=== PATIENT | male | born 1970 | race Caucasian/White ===

== ENCOUNTER 2023-10-02 15:17 | Outpatient (AMB) | payer BC, SELFPAY ==
[2023-10-02 15:19] VITALS: BP 118/64; PULSE 99; O2SAT 100; BMI 29.4
--- NOTE | 2023-10-02 15:19 | HO.NEPHOV_ITS ---
Vital Signs 10/02/23 15:19 Height 6 ft Weight 217 lb BMI 29.4 BP 118/64 Blood Pressure Location Rt brachial Position Sitting Pulse 99 Pulse Source Pulse Oximeter Pulse Oximetry (%) 100 Oxygen Delivery Method Room Air Intake Visit Reasons: Continuing care- CKD/ Conf Cotton Washer Required: No Accompanied by: Self / Same As Patient Allergies rivaroxaban Allergy (Unknown, Verified 10/02/23 15:25) Rash bee venom Allergy (Unknown, Uncoded 09/30/23 16:41) Anaphylaxis HPI Comments Details: 52-year-old man with a history of longstanding hypertension and CKD. He is sudden 3 episodes of GI bleed leading to severe anemia. He has undergone blood transfusion. He has had upper and lower endoscopies. No definite source has been identified. Ongoing medical problems include history of deep venous thrombosis of the left femoral vein and pulmonary embolism. He is on Eliquis. History of cervical radiculitis and chronic low back pain Remote history of nephrolithiasis baseline creatinine is around 1.3-1.5 mg/dL History of acute kidney injury in the past with a peak creatinine of 2.9. Since his blood pressure has been low valsartan has been discontinued. [facility]LY [facility], [facility] Social History (Updated 10/02/23 @ 15:24 by CHANCE Kelly) Patient Tobacco Use Status: Former Tobacco user Review of Systems Const Denies fever(s) and Denies weight loss Card Denies chest pain Resp Denies cough and Denies hemoptysis GI Denies abdominal pain, Denies diarrhea and Denies nausea Musc Denies back pain Neuro Denies focal weakness Physical Exam Vital Signs: Last Vital Signs Pulse 99 10/02/23 15:19 BP 118/64 10/02/23 15:19 Pulse Ox 100 10/02/23 15:19 Oxygen Delivery Method Room Air 10/02/23 15:19 BMI result Body Mass Index 29.4 Const General: comfortable; No acute distress Orientation/consciousness: patient oriented x3 Eyes General: appearance normal, both eyes and all related structures Visual Montez: normal visual montez by confrontation Neck Neck: Yes supple and Yes no JVD Resp Effort & Inspection: normal respiratory effort and respiratory effort not decreased Auscultation: rhonchi Cardio Palpation: no palpable S3 and no palpable S4 Heart sounds: no rubs GI Inspection: Yes normal to inspection Palpation (GI): Soft to palpation Percussion: Yes normal to percussion Auscultation: normal bowel sounds General: Yes no CVA tenderness Back/Spine/Pelvis Back: no CVA tenderness Skin General skin exam: no petechiae and no purpura Neuro General: patient oriented x3 and no focal motor deficits Extrem General: No clubbing and No edema Results Reviewed Results Reviewed: Labs pending Nephrology Results: No Data to Display Assessment & Plan Assessment & Plan (1) CKD (chronic kidney disease): Code(s): N18.9 - Chronic kidney disease, unspecified Category: Medical (2) Anemia: Code(s): D64.9 - Anemia, unspecified Category: Medical Plan . 48-year-old man with a history of longstanding history of diabetes mellitus and hypertension with proteinuria and CKD. He has CKD 3 most likely due to hypertensive diabetic kidney disease. History of acute kidney injury which has resolved. History of proteinuria and he was on valsartan. Valsartan has been placed on hold due to relatively low blood pressure. History of significant anemia due to GI bleed and is currently being worked up. History of hyperkalemia After discontinuing valsartan serum potassium should normalize. He should continue low-potassium diet. History of hypertension. Blood pressure is well controlled this time Encouraged to stay on low-sodium diet. Orders: Orders Total Protein Urine Random 1 Week D64.9 - Anemia, unspecified, N18.9 - Chronic kidney disease, unspecified Comprehensive Met. Panel 1 Week D64.9 - Anemia, unspecified, N18.9 - Chronic kidney disease, unspecified Complete Blood Count no Diff 1 Week D64.9 - Anemia, unspecified, N18.9 - Chronic kidney disease, unspecified Creatinine Urine 1 Week D64.9 - Anemia, unspecified, N18.9 - Chronic kidney disease, unspecified Coding Level of Care Code Est Pt Level 4 (22623) Diagnoses CKD (chronic kidney disease) N18.9 Anemia D64.9
== END 2023-10-02 15:44 | disposition home or self-care (01) ==
PROVIDERS: PCP Family Medicine; Visit Provider Internal Medicine Hypertension Specialist
DX: N18.9 Chronic kidney disease, unspecified (principal); D64.9 Anemia, unspecified
CPT/HCPCS: 99214

== ENCOUNTER → 2023-10-02 15:17 | Outpatient (BNVA) | payer BC, SELFPAY | PROVIDERS: PCP Family Medicine; Visit Provider Internal Medicine Hypertension Specialist ==

== ENCOUNTER 2024-01-29 13:31 | Outpatient (AMB) | payer BC, SELFPAY ==
--- NOTE | 2024-01-29 13:32 | HO.NEPHOV ---
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: No Accompanied by: Self / Same As Patient Allergies rivaroxaban Allergy (Unknown, Verified 01/29/24 13:35) Rash bee venom Allergy (Unknown, Uncoded 09/30/23 16:41) Anaphylaxis Medication List - Last Reconciled 01/29/24 by Isaiah Robert MD allopurinol 100 mg PO DAILY amitriptyline 50 mg PO BEDTIME apixaban (Eliquis) 5 mg PO BID betamethasone dipropionate 0.05% appl topical bupropion HCl SR 150 mg PO DAILY carvedilol 6.25 mg PO BID cyanocobalamin (vitamin B-12) 500 mcg PO DAILY folic acid 1 mg PO QAM insulin aspart U-100 (Novolog U-100 Insulin aspart) 1 sliding scale dose subcut USEASDIRECTD insulin detemir U-100 (Levemir FlexPen) units subcut minocycline 50 mg PO DAILY pregabalin 150 mg PO BID semaglutide (Ozempic) mg subcut HPI Comments Details: 52-year-old man with a history of longstanding hypertension and CKD. He is sudden 3 episodes of GI bleed leading to severe anemia. He has undergone blood transfusion. He has had upper and lower endoscopies. No definite source has been identified. Ongoing medical problems include history of deep venous thrombosis of the left femoral vein and pulmonary embolism. He is on Eliquis. History of cervical radiculitis and chronic low back pain Remote history of nephrolithiasis baseline creatinine is around 1.3-1.5 mg/dL History of acute kidney injury in the past with a peak creatinine of 2.9. Since his blood pressure has been low valsartan has been discontinued. 01/29/24 Still has anemia Waiting for Endoscopy Recently admitted with Pneumonia Still smokes 1/2 PPD [facility] Social History Patient Tobacco Use Status: Former Tobacco user Physical Exam Vital Signs: Last Vital Signs Pulse 106 H 01/29/24 13:33 BP 130/78 01/29/24 13:47 Pulse Ox 100 01/29/24 13:33 Oxygen Delivery Method Room Air 01/29/24 13:33 BMI result Body Mass Index 29.4 Results Reviewed Nephrology Results: No Data to Display Assessment & Plan Assessment & Plan (1) CKD (chronic kidney disease): Code(s): N18.9 - Chronic kidney disease, unspecified Category: Medical (2) Anemia: Code(s): D64.9 - Anemia, unspecified Category: Medical Plan . 48-year-old man with a history of longstanding history of diabetes mellitus and hypertension with proteinuria and CKD. He has CKD 3 most likely due to hypertensive diabetic kidney disease. History of acute kidney injury which has resolved. Repeeat labs ordered History of proteinuria and he was on valsartan. Valsartan has been placed on hold due to relatively low blood pressure. History of significant anemia due to GI bleed and is currently being worked up. History of hyperkalemia REcheck K He should continue low-potassium diet. History of hypertension. Blood pressure is well controlled this time Encouraged to stay on low-sodium diet. Orders: Orders Basic Metabolic Panel 01/29/24 N18.9 - Chronic kidney disease, unspecified, D64.9 - Anemia, unspecified Basic Metabolic Panel 3 Months N18.9 - Chronic kidney disease, unspecified, D64.9 - Anemia, unspecified Coding Level of Care Code Est Pt Level 4 (29588) Diagnoses CKD (chronic kidney disease) N18.9 Anemia D64.9
[2024-01-29 13:33] VITALS: BP 152/78; PULSE 106; O2SAT 100; BMI 29.4
[2024-01-29 13:47] VITALS: BP 130/78
== END 2024-01-29 13:52 | disposition home or self-care (01) ==
PROVIDERS: PCP Family Medicine; Visit Provider Internal Medicine Hypertension Specialist
DX: I12.9 Hypertensive chronic kidney disease with stage 1 through stage 4 chronic kidney disease, or unspecified chronic kidney disease (principal); N18.9 Chronic kidney disease, unspecified; D63.1 Anemia in chronic kidney disease
CPT/HCPCS: 99214

== ENCOUNTER → 2024-01-29 13:31 | Outpatient (BNVA) | payer BC, SELFPAY | PROVIDERS: PCP Family Medicine; Visit Provider Internal Medicine Hypertension Specialist ==

== ENCOUNTER 2024-05-13 14:12 | Outpatient (AMB) | payer BC, SELFPAY ==
--- NOTE | 2024-05-13 14:13 | HO.NEPHOV ---
Vital Signs 05/13/24 14:14 Height 6 ft Weight 218 lb BMI 29.6 BP 90/52 L Blood Pressure Location Rt brachial Position Sitting Intake Visit Reasons: CKD/3 Month Follow Up/ LVM Ada Accommodation Consultant Required: No Accompanied by: Self / Same As Patient Allergies rivaroxaban Allergy (Unknown, Verified 05/13/24 14:15) Rash bee venom Allergy (Unknown, Uncoded 09/30/23 16:41) Anaphylaxis Medication List - Last Reconciled 05/13/24 by Isaiah Robert MD allopurinol 100 mg PO DAILY amitriptyline 50 mg PO BEDTIME apixaban (Eliquis) 5 mg PO BID betamethasone dipropionate 0.05% appl topical bupropion HCl SR 150 mg PO DAILY carvedilol 6.25 mg PO BID colchicine 0.6 mg PO DAILY cyanocobalamin (vitamin B-12) 500 mcg PO DAILY dapagliflozin propanediol (Farxiga) 10 mg PO DAILY folic acid 1 mg PO QAM insulin aspart U-100 (Novolog U-100 Insulin aspart) 1 sliding scale dose subcut USEASDIRECTD insulin degludec (Tresiba FlexTouch U-100 insulin) 12 units subcut DAILY insulin detemir U-100 (Levemir FlexPen) units subcut magnesium oxide 400 mg PO TID pantoprazole mg PO pregabalin 200 mg PO BID semaglutide (Ozempic) mg subcut spironolactone 25 mg PO DAILY torsemide 20 mg PO DAILY valsartan 320 mg PO DAILY varenicline 1 mg PO BID HPI Comments Details: 52-year-old man with a history of longstanding hypertension and CKD. He is sudden 3 episodes of GI bleed leading to severe anemia. He has undergone blood transfusion. He has had upper and lower endoscopies. No definite source has been identified. Ongoing medical problems include history of deep venous thrombosis of the left femoral vein and pulmonary embolism. He is on Eliquis. History of cervical radiculitis and chronic low back pain Remote history of nephrolithiasis baseline creatinine is around 1.3-1.5 mg/dL History of acute kidney injury in the past with a peak creatinine of 2.9. Since his blood pressure has been low valsartan has been discontinued. 01/29/24 Still has anemia Waiting for Endoscopy Recently admitted with Pneumonia Still smokes 1/2 PPD 05/13/24 Did not undergo Endoscopy yet Currently on Valsartan 320 mg QD REPLACED BY [facility] Social History Patient Tobacco Use Status: Former Tobacco user Physical Exam Vital Signs: BMI result Body Mass Index 29.6 Comfortable Neck supple no JVD. Lungs entry equal no rales. Heart S1-S2 heard no gallop or rub. Abdomen soft nontender. Neuro alert awake oriented. No asterixis. Extremities no edema. Results Reviewed Nephrology Results: No Data to Display Assessment & Plan Assessment & Plan (1) CKD (chronic kidney disease): Code(s): N18.9 - Chronic kidney disease, unspecified Category: Medical (2) Anemia: Code(s): D64.9 - Anemia, unspecified Category: Medical Plan . 54-year-old man with a history of longstanding history of diabetes mellitus and hypertension with proteinuria and CKD. He has CKD 3 most likely due to hypertensive diabetic kidney disease. History of acute kidney injury which has resolved. History of proteinuria and he was on valsartan. Valsartan was placed on hold due to relatively low blood pressure. But restarted few months ago at 320 mg History of significant anemia due to GI bleed and is currently being worked up. Waitingf or Endoscopy History of hyperkalemia He should continue low-potassium diet. History of hypertension. Blood pressure is on the lower side Would decrease Valsartan by 50% to 160 mg and watch Orders: Orders Complete Blood Count no Diff Today D64.9 - Anemia, unspecified, N18.9 - Chronic kidney disease, unspecified Comprehensive Met. Panel Today D64.9 - Anemia, unspecified, N18.9 - Chronic kidney disease, unspecified Medications: New valsartan 160 mg PO DAILY 90 tabs 1RF Coding Level of Care Code Est Pt Level 4 (29367) Diagnoses CKD (chronic kidney disease) N18.9 Anemia D64.9
[2024-05-13 14:14] VITALS: BP 90/52; BMI 29.6
== END 2024-05-13 14:34 | disposition home or self-care (01) ==
PROVIDERS: PCP Family Medicine; Visit Provider Internal Medicine Hypertension Specialist
DX: N18.9 Chronic kidney disease, unspecified (principal); D64.9 Anemia, unspecified
CPT/HCPCS: 99214

== ENCOUNTER 2024-09-02 13:20 | Outpatient (AMB) | payer BC, SELFPAY ==
[2024-09-02 13:24] VITALS: BP 144/68; PULSE 99; O2SAT 100; BMI 30.8
--- NOTE | 2024-09-02 13:24 | HO.NEPHOV ---
Vital Signs 09/02/24 13:24 09/02/24 13:36 Height 6 ft Weight 227 lb BMI 30.8 BP 144/68 H 130/60 Blood Pressure Location Lt brachial Lt brachial Position Sitting Sitting Pulse 99 Pulse Source Pulse Oximeter Pulse Oximetry (%) 100 Oxygen Delivery Method Room Air Intake Visit Reasons: 4mon follow-up w/labs LVM [employer] Emergency Services Manager Required: No Accompanied by: Self / Same As Patient Allergies rivaroxaban Allergy (Unknown, Verified 09/02/24 13:26) Rash bee venom Allergy (Unknown, Uncoded 09/30/23 16:41) Anaphylaxis Medication List - Last Reconciled 09/02/24 by Isaiah Robert MD allopurinol 100 mg PO DAILY amitriptyline 50 mg PO BEDTIME apixaban (Eliquis) 5 mg PO BID betamethasone dipropionate 0.05% appl topical bupropion HCl SR 150 mg PO DAILY carvedilol 6.25 mg PO BID colchicine 0.6 mg PO DAILY cyanocobalamin (vitamin B-12) 500 mcg PO DAILY dapagliflozin propanediol (Farxiga) 10 mg PO DAILY folic acid 1 mg PO QAM insulin aspart U-100 (Novolog U-100 Insulin aspart) 1 sliding scale dose subcut USEASDIRECTD insulin degludec (Tresiba FlexTouch U-100 insulin) 12 units subcut DAILY insulin detemir U-100 (Levemir FlexPen) units subcut magnesium oxide 400 mg PO TID pantoprazole mg PO pregabalin 200 mg PO BID semaglutide (Ozempic) mg subcut spironolactone 25 mg PO DAILY torsemide 20 mg PO DAILY valsartan 320 mg PO DAILY varenicline tartrate 1 mg PO BID HPI Comments Details: 52-year-old man with a history of longstanding hypertension and CKD. He is sudden 3 episodes of GI bleed leading to severe anemia. He has undergone blood transfusion. He has had upper and lower endoscopies. No definite source has been identified. Ongoing medical problems include history of deep venous thrombosis of the left femoral vein and pulmonary embolism. He is on Eliquis. History of cervical radiculitis and chronic low back pain Remote history of nephrolithiasis baseline creatinine is around 1.3-1.5 mg/dL History of acute kidney injury in the past with a peak creatinine of 2.9. Since his blood pressure has been low valsartan has been discontinued. 01/29/24 Still has anemia Waiting for Endoscopy Recently admitted with Pneumonia Still smokes 1/2 PPD 05/13/24 Did not undergo Endoscopy yet Currently on Valsartan 320 mg QD 09/02/24 54-year-old male presenting with anemia. He reports a marked drop in hemoglobin levels from 9.1 to 7.5 g/dL over a span of a few days, which has necessitated weekly monitoring. The patient has been on iron supplements for several years, yet a recent bone marrow examination revealed an absence of iron, indicating severe depletion likely related to ongoing blood loss. This issue has been further compounded by the necessity of frequent blood transfusions, the last of which occurred approximately one week ago. The ongoing anemia has prompted multiple investigations including a planned endoscopy and a recent, [id number]-[id number]-reviewed bone marrow biopsy. [facility] Social History Patient Tobacco Use Status: Former Tobacco user Physical Exam Vital Signs: Last Vital Signs Pulse 99 09/02/24 13:24 BP 144/68 H 09/02/24 13:24 Pulse Ox 100 09/02/24 13:24 Oxygen Delivery Method Room Air 09/02/24 13:24 BMI result Body Mass Index 30.8 Comfortable Neck supple no JVD. Lungs entry equal no rales. Heart S1-S2 heard no gallop or rub. Abdomen soft nontender. Neuro alert awake oriented. No asterixis. Extremities no edema. Results Reviewed Nephrology Results: No Data to Display Assessment & Plan Assessment & Plan (1) CKD (chronic kidney disease): Code(s): N18.9 - Chronic kidney disease, unspecified Category: Medical (2) Anemia: Code(s): D64.9 - Anemia, unspecified Category: Medical Plan . 54-year-old man with a history of longstanding history of diabetes mellitus and hypertension with proteinuria and CKD. He has CKD 3 most likely due to hypertensive diabetic kidney disease. History of acute kidney injury which has resolved. History of proteinuria - on valsartan. Renal panel ordered History of significant anemia due to GI bleed and is currently being worked up. Still waiting for Endoscopy History of hyperkalemia He should continue low-potassium diet. History of hypertension. Blood pressure is better controlled At his request, will refill Novolog and Freestyle kathrine sensor Orders: Orders Basic Metabolic Panel 4 Months D64.9 - Anemia, unspecified, N18.9 - Chronic kidney disease, unspecified Complete Blood Count no Diff 4 Months D64.9 - Anemia, unspecified, N18.9 - Chronic kidney disease, unspecified Basic Metabolic Panel 4 Days N18.9 - Chronic kidney disease, unspecified Coding Level of Care Code Est Pt Level 4 (03718) Diagnoses CKD (chronic kidney disease) N18.9 Anemia D64.9
--- OUTSIDE RECORDS SUMMARY | 2024-09-02 13:31 | XMS_ITS | Encounter Summary ---
Author Organization [facility] Address [address] [place] [address] Care Team Providers Care Sack Cleaner Name Role Phone Rios Sousa MD Primary Care Provider Encounter Details Date Type Department Care Team (Latest Contact Info) Description 08/28/2024 8:44 AM EDT - 08/28/2024 11:59 PM EDT Hospital Encounter [facility] [address] [place] [address] MGUS (monoclonal gammopathy of unknown significance); Iron deficiency anemia due to chronic blood loss; Acute on chronic anemia Discharge Disposition: Home or Self Care Social History Tobacco Use Types Packs/Day Years [...] care for your loved ones. For example, child day care provider or elderly care for an older adult? [...] Safety Answer Date Record ed Physical Abuse 08/08/2024 Verbal Abuse 08/08/2024 Sex and Gender Information Value Date Recorded Sex Assigned at Male 06/03/2024 2:26 PM EST Legal Sex Male 12:56 PM EST Gender Identity Male 06/03/2024 2:26 PM EST Sexual Orientation Straight 06/03/2024 2: 26 PM EST documented as of this encounter Functional Status * Are you deaf or do you have serious difficulty hearing? Answer Date of Assessment Author No 06/26/2024 8:27 PM EST Debora Sharpe * Are you blind or do you have serious difficulty seeing, even when wearing glasses? Answer Date of Assessment Author No 06/26/2024 8:27 PM EST Debora Sharpe * Do you have serious difficulty walking or climbing stairs? Answer Date of Assessment Author No 06/26/2024 8:27 PM Debora Hedrick * Do you have serious difficulty dressing or bathing? Answer Date of Assessment Author No 06/26/2024 8:27 PM Debora Hedrick * Because of a physical, mental, or emotional condition, do you have serious difficulty doing errandsalone such as visiting the doctor? Answer Date of Assessment Author No 06/26/2024 8:27 PM NIDHI AnnemarieDebora edwards documented as of this encounter Mental Status * Because of a physical, mental, or emotional condition, do you have serious difficulty concentrating, remembering, or making decisions? (5 years old or older) Answer Entry Date Author No 06/26/2024 8:27 PM Debora Hedrick documented in this encounter Medications at Time of Discharge allopurinoL (ZYLOPRIM) 300 mg tabletIndications :Chronic gout without tophus, unspecified cause, unspecified site Take 1 tablet (300 mg total) by mouth 1 (one) time each day. 07/24/2024 amitriptyline (ELAVIL) 50 mg tablet TAKE ONE TABLET (50 MG TOTAL) BY MOUTH AT BEDTIME 30 tablet 11 04/16/2024 buPROPion SR (WELLBUTRIN SR) 150 mg 12 hr tabletIndications :Smoking TAKE ONE TABLET (150MG TOTAL) BY MOUTH ONCE DAILY DO NOT CRUSH, CHEW, OR SPIT. 30 tablet 11 04/16/2024 carvediloL (Coreg) 12.5 mg tabletIndications :Primary hypertension Take 1 tablet (12.5 mg total) by mouth 2 (two) times a day with meals. 180 each 1 03/31/2024 colchicine (COLCRYS) 0.6 mg tabletIndications :Hyperuricemia Take 1 tablet (0.6 mg total) by mouth 1 (one) time each day. 90 tablet 07/22/2024 cyanocobalamin (VITAMIN B-12) 500 mcg tabletIndications :Anemia, unspecified type Take 1 tablet (500 mcg total) by mouth 1 (one) time each day. 90 tablet 1 04/06/2024 Eliquis 5 mg tabletIndications :Iron deficiency anemia due to chronic blood loss,MGUS (monoclonal gammopathy of unknown significance) TAKE ONE TABLET BY MOUTH EVERY TWELVE HOURS 180 tablet 11 06/12/2024 EPINEPHrine (EPIPEN) 0.3 mg/0.3 mL injection INJECT 0.3 ML (0.3 MG TOTAL) INTO THE MUSCLE ONCE FOR 1 DOSE 10/30/2023 ferrous sulfate (IRON ORAL) 2 (two) times a day. Iron Combinations (IRON COMPLEX PO): Take 1 capsule by mouth daily. - Oral insulin aspart (NovoLOG U-100 Insulin aspart) 100 unit/mL injection Inject 13 Units under the skin 3 (three) times a day before meals. 07/24/2024 ketoconazole (NIZORAL) 2 % shampoo APPLY TOPICALLY TWICE DAILY APPLY TO DAMP SKIN, LATHER, LEAVE ON FOR 5 MINUTES AND RINSE 07/08/2024 magnesium oxide 400 mg magnesium capsule Take 400 mg by mouth 2 (two) times a day. 08/27/2023 pantoprazole (PROTONIX) 40 mg EC tabletIndications :Gastroesophageal reflux disease, unspecified whether esophagitis present Take 1 tablet (40 mg total) by mouth 2 (two) times a day. 90 tablet 1 06/29/2024 pregabalin (LYRICA) 150 mg capsuleIndication s:Chronic low back pain, unspecified back pain laterality, unspecified whether sciatica present Take 2 capsules (300 mg total) by mouth 2 (two) times a day. Max Daily Amount: 600 mg 120 each 08/25/2024 5 semaglutide (Ozempic) 1 mg/dose (4 mg/3 mL) injection penIndications:Ty pe 2 diabetes mellitus with hyperglycemia, with long-term current use of insulin ([facility] V24, [facility] V28) INJECT 1 MG UNDER THE SKIN EVERY 7 (SEVEN) DAYS. 3 mL 2 07/07/2024 5 torsemide (DEMADEX) 20 mg tabletIndications :Primary hypertension Take 1 tablet (20 mg total) by mouth 1 (one) time each day. 90 tablet 1 06/17/2024 Tresiba FlexTouch U-100 100 unit/mL (3 mL) injection pen Inject 12 Units under the skin at bedtime. 02/19/2024 FreeStyle Guanako 3 Sensor deviceIndications :Type 2 diabetes mellitus without complication, with long-term current use of insulin ([facility] V24, [facility] V28) 1 EA by Other route every 14 (fourteen) days. Box = Kit = EA 6 kit 2 06/15/2024 documented as of this encounter Discharge Disposition Disposition Code Departure Means Destination Home or Self Care documented in this encounter Progress Notes * Nessa Fried RN - 08/28/2024 9:00 AM EDT Timeout performed prior to bone marrow biopsy. Patient identified and able to verbalized procedure to be performed - bone marrow biopsy. Patient tolerated procedure well without incident. Performed by Seferino Leo PA-C. Biopsy dressing assessed post biopsy; scant bleeding assessed (size of a pee) after lying flat on his back with pressure applied for 60 minutes per ASHTYN Gentile's request since patient is on Eliquis. Patient encouraged to monitor the site when he arrives home, and if he notices any bleeding to call clinic. Pt was educated and given a handout on the below information: -Resume normal activity unless significant discomfort or otherwise instructed. - Maintain pressure dressing dry and intact for 24 hours. -Dressing may be removed after 24 hours and replace with a Band-Aid if needed. -May shower after 24 hours. -For the first 48 hours the site should not be submerged in water. -Ice packs to site(s) as needed for discomfort. -Acetaminophen 1-2 tabs every 6 hours as needed for discomfort Patient is aware of his next scheduled appointment and didn't require a copy prior to discharge from the clinic. Will call clinic in interim with questions/concerns. documented in this encounter Plan of Treatment Upcoming Encounters Date Type Department Care Team (Late st Contact Info) Description 09/07/2024 9:00 AM EDT Appointment [facility] [address] [place] [address] 09/08/2024 12:30 PM EDT Appointment [facility] [address] [place] [address] 09/10/2024 11:00 AM EDT Office Visit Hematology and Oncology - [place] [address] [place] [address] Dhaval Bradley MD [address] [place] [address] 09/21/2024 11:00 AM EDT Appointment [facility] [address] [place] [address] 09/22/2024 11:45 AM EDT Office Visit Family Medicine [place] [address] [facility] [address] [place] [phone] Kiya Crespo PA [address] [facility] [address] [facility] [place] [address] 09/22/2024 12:30 PM EDT Appointment [facility] [address] [place] [address] 10/05/2024 11:00 AM EDT Appointment [facility] [address] [place] [address] 10/06/2024 11:00 AM EDT Appointment [facility] [address] [place] [address] 10/19/2024 11:00 AM EDT Appointment [facility] [address] [place] [address] 10/20/2024 11:00 AM EDT Appointment [facility] [address] [place] [address] 10/26/2024 1:15 PM EDT [facility] [place] [address] [place] [address] Joann Strauss PA [address] [place], [place] [id number] 02/11/2025 11:20 AM EDT Office Visit [facility] [place] [address] [place] [address] Leonid Watson DO [address] [place] [address] documented as of this encounter Procedures Procedure Name Priority Date/Time Associated Diagnosis Comments FLOW CYTOMETRY Routine 08/28/2024 9:48 AM EDT MGUS (monoclonal gammopathy of unknown significance) Iron deficiency anemia due to chronic blood loss Acute on chronic anemia BONE MARROW EXAM Routine 08/28/2024 9:48 AM EDT MGUS (monoclonal gammopathy of unknown significance) Iron deficiency anemia due to chronic blood loss Acute on chronic anemia documented in this encounter Results * Flow cytometry (08/28/2024 9:48 AM EDT) Pathologist [facility] Flow Cytometry Interpretation Flow cytometry: The overall findings show no immunophenotypic abnormalities. Please note that myeloid disorders cannot be reliably excluded by flow cytometry. SPECIMEN: Bone marrow VIABILITY: 98.9% TOTAL CELL YIELD: 31.6x106/mL IMMUNOPHENOTYPIC FINDINGS: Lymphocytes are 4% of total. -T cells are 3.8% of total (85% of cells in lymphocyte gate) with no aberrant phenotype, CD4:CD8=0.9 -B cells are 0.2% of total (% of cells in lymphocyte gate) and are polytypic. Granulocytes are 36% of total Monocytic cells are 2% of total CD34+ Blasts are not increased (2%). Plasma cells are 0.2% with normal surface marker expression. Antibodies (28 markers): CD2, CD3, CD4, CD5, CD7, CD8, CD10, CD11b, CD13, CD14, CD15, CD16, CD19, CD20, CD33, CD34, CD38, CD45, CD56, CD64, CD117, CD123, CD138, CD200, HLA-DR, [place] Tri[place], Lambda, TCR??. 08/28/2024 4:[facility] PM [facility] Disclaimer This test was developed and its performance characteristics determined by [facility]. It has not been cleared or approved by U.S. Food and Drug Administration. The FDA does not require this test to go through premarket FDA review. This test is used for clinical purposes. It should not be regarded as investigational or for research. This laboratory is certified under Clinical Laboratory Improvement Amendments of 1988 (CLIA) as qualified to perform high complexity clinical laboratory testing. 08/28/2024 4:08 PM EDT [facility] Bone Marrow Specimen from bone marrow obtained by aspiration / Unknown Non-blood Collection / Unknown 08/28/2024 9:48 AM EDT 08/28/2024 11:46 AM EDT S[facility] BLOOD ORDERABLES Fin al Result [facility] [address] [place] [address], [place] [phone] * Bone marrow exam (08/28/2024 9:48 AM EDT) Final Diagnosis A-C. Bone Marrow, aspiration, core biopsy, and clot: Marrow with trilineage hematopoiesis and absent iron stores. See comment. Comment: This is a normo-cellular marrow with trilineage hematopoiesis and absent iron stores. Flow cytometry shows no immunophenotypic abnormalities. Mild megaloblastic changes are seen in the granulocytic precursors however no definite dysplastic features are present. In the clinical setting of persistent peripheral blood cytopenia the overall findings are not diagnostic as for the etiology. Karyotype, and a myeloid disorder NGS panel are pending, addendum to follow. CBC: Lab Results Component Value Date WBC 3.3 (L) 08/27/2024 RBC 3.09 (L) 08/27/2024 HGB 9.1 (L) 08/27/2024 HCT 28.1 (L) 08/27/2024 MCV 91.0 08/27/2024 MCHC 32.4 08/27/2024 RDW 17.0 08/27/2024 PLT 118 (L) 08/27/2024 MPV 9.5 08/27/2024 DIFF Lab Results Component Value Date LYMPHOPCT 17.5 (L) 08/27/2024 NEUTROABS 2.30 08/27/2024 LYMPHSABS 0.60 (L) 08/27/2024 MONOABS 0.20 08/27/2024 EOSABS 0.10 08/27/2024 BASOSABS 0.00 08/27/2024 Bone marrow aspirate smear (Chopra stain): Specimen quality: Very good Myeloid:Erythroid ratio: 1.18 Myeloid maturation: Within normal limits Erythroid maturation: Within normal limits Megakaryocyte number and morphology: Adequate with normal morphology Iron stain: Absent iron stores 200 cell Differential count of aspirate: % Cell type Blasts, 0% Myeloids, 52% Lymphocytes, 2% Plasma cells, 2% Erythroids. 44% Microscopic finding of bone marrow biopsy and clot (H and E, PAS): Specimen quality: Core: Inadequate biopsy consists only of periosteum and attached soft tissue and cellular marrow is not included. .Clot: Several spicules are present in the clot. Cellularity: Approximately 50% Myeloid maturation: Within normal limits Erythroid maturation: Within normal limits Megakaryocyte number and maturation: Adequate with normal morphology Plasma cells: Not increased Lymphocytes: Not increased Reticulin stain: Cannot be evaluated due to biopsy being an inadequate specimen PAS stain on clot and core: Highlights megakaryocytes Additional Testing (Addendum to follow): Conventional karyotype All special stains were performed with appropriate controls. 08/31/2024 2:57 PM EDT [facility] Gross Description A. Bone Marrow Aspirate, : Received are 5 total slides (3 Giemsa 1 iron 1 unstained slide) prepared by flow cytometry. 08/28/24 B. Bone Marrow Biopsy, : Received in formalin labeled bone marrow biopsy consists of a pale mcmillan-pink bone core with minimal adherent blood clot measuring 0.5 cm in length, which is submitted en toto in one cassette labeled B1, after bench decalcification. 08/28/24 C. Bone Marrow Clot, : Received in a purple lavender top tube labeled clot consists of approximately 2 cc of bright red blood and blood clot intermixed with flecks of pink debris which is filtered and entirely submitted in 1 cassette labeled C1, multiple pieces. HP 08/28/24 08/31/2024 2:57 PM EDT [facility] Disclaimer The technical components of [place] [address] CLIA # [id number] The interpretation of this case included the use of immunohistochemistr y, special stains, and/or analyte specific reagent(s). Unless otherwise specified, controls were performed and stained appropriately. These tests have not been cleared or approved by the U.S. Food and Drug Administration. The FDA has determined that such clearance or approval is not necessary. These tests are used for clinical purposes and should not be regarded as investigational or for research. This laboratory is certified to perform high complexity testing under the Clinical Laboratory Improvement Amendments of 1988. 08/31/2024 2:57 PM EDT [facility] Bone Marrow Bone marrow clot specimen / Unknown Non-blood Collection / Unknown 08/28/2024 9:48 AM EDT 08/28/2024 11:12 AM EDT Bone marrow specimen (specimen) Specimen from bone marrow obtained by biopsy / Unknown 08/28/2024 9:48 AM EDT 08/28/2024 11:12 AM EDT Bone marrow specimen (specimen) Bone marrow clot specimen / Unknown 08/28/2024 9:48 AM EDT 08/28/2024 11:12 AM EDT [facility] PATHOLOGY ORDERABLES Final Result [facility] [address] [place] [address], [place] [phone] documented in this encounter Visit Diagnoses Diagnosis MGUS (monoclonal gammopathy of unknown significance) Monoclonal paraproteinemia Iron deficiency anemia due to chronic blood loss Iron deficiency anemia secondary to blood loss (chronic) Acute on chronic anemia documented in this encounter Additional Health Concerns Assessment Noted Time PHQ-9 Depression Total Score: 0 08/14/19 25 3:29 PM EDT documented as of this encounter Care Teams Sack Cleaner Relationship Specialty Start Date End Date Rios Sousa MD [address] [place] [address] [address] [place] [address] PCP - General Family Medicine 05/06/24 documented as of this encounter
--- OUTSIDE RECORDS SUMMARY | 2024-09-02 13:31 | XMS_ITS | Encounter Summary ---
Author Organization [facility] Address [address] [place] [address] Care Team Providers Care Curriculum Manager Name Role Phone Rios Sousa MD Primary Care Provider [phone] Encounter Details Date Type Department Care Team (Latest Contact Info) Description 09/01/2024 1:21 PM EDT - 09/01/2024 11:59 PM EDT Hospital Encounter [facility] [address] [place] [address] Closed fracture of right ankle with routine healing, subsequent encounter Discharge Disposition: Home or Self Care Social [...] care for your loved ones. For example, early childhood special educator or elderly care for an older adult? [...] Assessment Author No 06/26/2024 8:27 PM NIDHI Sharpe Debora * Because of a physical, mental, or emotional condition, do you have serious difficulty doing errandsalone such as visiting the doctor? Answer Date of Assessment Author No 06/26/2024 8:27 PM Debora Hedrick documented as of this encounter Mental Status * Because of a physical, mental, or emotional condition, do you have serious difficulty concentrating, remembering, or making decisions? (5 years old or older) Answer Entry Date Author No 06/26/2024 8:27 PM Marco Hedrickle documented in this encounter Medications at Time [...] 1 capsule by mouth daily. - Oral FreeStyle Guanako 3 Sensor deviceIndications :Type 2 diabetes mellitus without complication, with long-term current use of insulin ([facility] V24, [facility] V28) 1 EA by Other route every 14 (fourteen) days. Box = Kit = EA 6 kit 2 09/01/2024 insulin aspart (NovoLOG U-100 Insulin aspart) 100 [...] hyperglycemia, with long-term current use of insulin ([facility] V24, [facility] V28) INJECT 1 MG UNDER THE SKIN EVERY 7 (SEVEN) DAYS. 3 mL 2 07/07/2024 5 torsemide (DEMADEX) 20 mg tabletIndications :Primary hypertension Take 1 tablet (20 mg total) by mouth 1 (one) time each day. 90 tablet 1 06/17/2024 Tresiba FlexTouch U-100 100 unit/mL (3 mL) injection pen Inject 12 Units under the skin at bedtime. 02/19/2024 documented as of this encounter Discharge Disposition Disposition Code Departure Means Destination Home or Self Care documented in this encounter Plan of Treatment Upcoming Encounters Date Type Department Care Team (Late st Contact Info) Description 09/07/2024 9:00 AM EDT Appointment [facility] [address] [place] [address] 09/08/2024 12:30 PM EDT Appointment [facility] [address] [place] [address] 09/10/2024 11:00 AM EDT Office Visit Hematology and Oncology - [address] [address] Dhaval Bradley MD [address] [place] [address] 09/21/2024 11:00 AM EDT Appointment [facility] [address] [place] [address] 09/22/2024 11:45 AM EDT Office Visit Family Medicine [place] [address] [facility] [address] [place] [address] Kiya Crespo PA [address] [facility] [address] [facility] [place] [address] 09/22/2024 12:30 PM EDT Appointment [facility] [address] [place] [address] 10/05/2024 11:00 AM EDT Appointment [facility] [address] [place] [address] 10/06/2024 11:00 AM EDT Appointment [facility] [address] [place] [address] 10/19/2024 11:00 AM EDT Appointment [facility] [address] [place] [address] 10/20/2024 11:00 AM EDT Appointment [facility] [place] [address] [place] [address] 10/26/2024 1:15 PM EDT [facility] [place] [address] [place] [address] Joann Strauss PA [address] [place] [address] 02/11/2025 11:20 AM EDT Office Visit [facility] [place] [address] [place] [phone] Leonid Watson DO [address] [place], [place] [id number] Pending Results Name Type Priority Associated Diagnoses Date /Time XR Ankle 3+ Views Right Imaging Routine Closed fracture of right ankle with routine healing, subsequent encounter 09/01/2024 1:39 PM EDT Scheduled Orders Name Type Priority Associated Diagnoses Orde r Schedule XR Ankle 3+ Views Right Imaging Routine Closed fracture of right ankle with routine healing, subsequent encounter Once for 1 Occurrences starting 09/01/2024 until 09/01/2024 documented as of this encounter Visit Diagnoses Diagnosis Closed fracture of right ankle with routine healing, subsequent encounter documented in this encounter Additional Health Concerns Assessment Noted Time PHQ-9 Depression Total Score: 0 08/14/19 3:29 PM EDT documented as of this encounter Care Teams Curriculum Manager Relationship Specialty Start Date End Date Rios Sousa MD [address] [facility] [address] [place] [address] PCP - General Family Medicine 05/06/24 documented as of this encounter
--- OUTSIDE RECORDS SUMMARY | 2024-09-02 13:31 | XMS_ITS | Clinical Summary ---
Author Organization [facility] Address [address] [place] [address] Care Team Providers Care Mountain Guide Name Role Phone Lucio Chow MD Primary Care Provider [phone] Allergies Active Allergy Reactions Criticality Noted Date Comments Rivaroxaban 03/29/2020 Active Problems Problem Noted Date Diagnosed Date Difficulty with CPAP use 08/10/2020 Insufficient sleep syndrome 08/10/2020 Periodic limb movement disorder 05/10/2020 Obstructive sleep apnea 05/10/2020 Hypertension 03/29/2020 Upper airway resistance syndrome 03/29/2020 DVT (deep venous thrombosis) 03/29/2020 Snoring 03/29/2020 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 Social History Tobacco Use Types Packs/Day Years Used Date Smoking Tobacco: Never Assessed Comments:Smoking Status:Non- smoker Sex and Gender Information Value Date Recorded Sex Assigned at Not on file Legal Sex Male 10:37 PM EDT Gender Identity Not on file Sexual Orientation Not on file Plan of Treatment Health Maintenance Due Date Last Done Comments Hepatitis C Screening 1968 DTaP/Tdap/Td (1 - Tdap) 1986 Hep B (1 of 3 - 19+ 3-dose series) 1987 Colon Cancer Screening 2013 Pneumococcal 50+ years (1 of 1 - PCV) 2018 Zoster (Shingrix) (1 of 2) 2018 COVID-19 Vaccine (2023-2 5 season) 2023 Influenza (#1) 2023 HPV Vaccine Aged Out No longer eligi ble based on patient's age to complete this topic Hep A Aged Out No longer eligi ble based on patient's age to complete this topic Hib Aged Out No longer eligi ble based on patient's age to complete this topic Meningococcal ACWY Aged Out No longer eligible based on patient's age to complete this topic Care Teams Mountain Guide Relationship Specialty Start Date End Date Lucio Chow MD [address] [place], [place] [id number] PCP - General 11/26/22
--- OUTSIDE RECORDS SUMMARY | 2024-09-02 13:31 | XMS_ITS | Encounter Summary ---
Author Organization [facility] Address [address] [place] [id number] Care Team Providers Care Mine Engineer Name Role Phone Rios Sousa MD Primary Care Provider [phone] Marcia Kulkarni RN Unavailable [phone] Encounter Details Date Type Department Care Team (Late st Contact Info) Description 09/03/2018 Scanned Document [facility] [address] [place] [address] [place] [address] Rios Sousa MD [address] [place] [address] Social History Tobacco Use Types Packs/Day Years Used Date Smoking Tobacco: Never Assessed Sex and Gender Information Value Date Recorded Sex Assigned at Male 04/26/2023 8:54 PM EST Legal Sex Male 4:36 PM EDT Gender Identity Male 04/26/2023 8:54 PM EST Sexual Orientation Heterosexual (straight) 04/26 8:54 PM EST documented as of this encounter Plan of Treatment Not on file documented as of this encounter Visit Diagnoses Not on filedocumented in this encounter Additional Health Concerns Infection Onset Date Last Indicated Resolved Time R/O Respiratory Disease 05/01/2023 05/01/202304/22 7:14 AM EST documented as of this encounter Care Teams Mine Engineer Relationship Specialty Start Date End Date Rios Sousa MD PCP - General Internal Medicine 09/03/18 Marcia Kulkarni RN [address] [place] [address] Registered Nurse 05/28/23 documented as of this encounter
--- OUTSIDE RECORDS SUMMARY | 2024-09-02 13:31 | XMS_ITS | Encounter Summary ---
Author Organization [facility] Address [address] [place] [address] Care Team Providers Care Sexual Abuse Counsellor Name Role Phone Rios Sousa MD Primary Care Provider [phone] Encounter Details Date Type Department Care Team (Late st Contact Info) Description 08/28/2024 9:00 AM EDT Procedure visit [place] [facility] [address] [place] [phone] Seferino Leo, ASHTYN [address] [place] [address] MGUS (monoclonal gammopathy of unknown significance) (Primary Dx); Iron deficiency anemia due to chronic blood loss; Acute on chronic anemia Social History Tobacco Use Types Packs/Day Years Used Date Smoking Tobacco: Former Cigarettes Smokeless Tobacco: Never Tobacco Cessation:Counseling Given: Not Answered Alcohol Use Standard Drinks/Week Comments Not Currently [...] Record ed Within the last 3 months, yokasta w many times did you visit the [...] for your loved ones. For example, child care center assistant director or elderly care for an older adult? [...] Sign Reading Time Taken Comments Blood Pressure 126/72 08/28/2024 8:49 AM EDT Pulse 88 08/28/2024 8:49 AM EDT Temperature 36.2 ??C (97.2 ??F) 08/28/2024 8:49 AM ED T Respiratory Rate 18 08/28/2024 8:49 AM EDT Oxygen Saturation 100% 08/28/2024 8:49 AM EDT Inhaled Oxygen Concentration - - Weight 104 kg (228 lb 3.2 oz) 08/28/2024 8:49 AM EDT Height - - Body Mass Index 30.95 08/25/2024 2:07 PM EDT documented in this encounter Functional Status * Are you deaf or do you have serious difficulty hearing? Answer Date of Assessment Author No 06/26/2024 8:27 PM Debora Hedrick * Are you blind or do you have serious difficulty seeing, even when wearing glasses? Answer Date of Assessment Author No 06/26/2024 8:27 PM Debora Hedrick * Do you have serious difficulty walking [...] PM Debora Hedrick documented in this encounter Progress Notes * ASHTYN Neal - 08/28/2024 9:00 AM EDT HEMATOLOGY/ONCOLOGY PROCEDURE NOTE DATE OF PROCEDURE: 08/28/2024 TIME: 9:39 AM EDT PROCEDURE: Bone marrow biopsy and aspiration BIOPSY NEEDLE SIZE: 4 INDICATION: 1. MGUS (monoclonal gammopathy of unknown significance) Bone marrow exam 2. Iron deficiency anemia due to chronic blood loss Bone marrow exam 3. Acute on chronic anemia Bone marrow exam ANESTHESIA: Lidocaine 2% injection PERFORMED by: ASHTYN Neal ASSISTANTS: Sofia Lacy ACA PERTINENT FINDINGS/EVENTS: Written and verbal informed consent were obtained by the patient and placed in the chart. The indication and risks of bone marrow biopsy and aspiration were discussed, including risk of infection, bleeding, pain, scar formation, and failure to obtain adequate specimen. Time out was performed to confirm patient identification. The area to be biopsied was located using anatomic landmarks. The left posterior superior iliac crest was sterilely prepped and draped in the usual manner. Using sterile technique, 10 mL of 1% lidocaine was administered to the tissue and periosteum, with confirmation by the patient that we had achieved adequate analgesia. Aspirate needle was inserted and bone marrow aspirate was obtained with confirmation of adequate spicules. Needle was withdrawn just past the periosteum, inserted a few millimeters adjacent to the initial insertion site, and bone marrow biopsy wasperformed with adequate marrow specimen obtained. Biopsy needle was removed and there was no significant post-procedural bleeding or immediate complications. The area was covered with gauze and an adh esive bandage. The patient was placed in supine position with pressure on the biopsy location for thirty minutes. The patient was given post-procedural instructions, including not to shower for twenty-four hours. The patient tolerated the procedure well. Specimens were sent for pathology examination, flow cytometry, and cytogenetics. ASHTYN Neal Hematology/Oncology 08/28/2024 Cc:Rios Sousa MD documented in this encounter Plan of Treatment Upcoming Encounters Date Type Department Care Team (Late st Contact Info) Description 09/07/2024 9:00 AM EDT Appointment [facility] [place] [address] [place] [address] 09/08/2024 12:30 PM EDT Appointment [facility] [place] [address] [place] [address] 09/10/2024 11:00 AM EDT Office Visit Hematology and Oncology - [address] [phone] Dhaval Bradley MD [address] [place], [place] [phone] 09/21/2024 11:00 AM EDT Appointment [facility] [place] [address] [place] [address] 09/22/2024 11:45 AM EDT Office Visit Family Medicine [place] [address] [facility] [address] [place] [phone] Kiya Crespo PA [address] [facility] [address] [facility] Family [place], [place] [address] 09/22/2024 12:30 PM EDT Appointment [facility] [place] [address] [place] [address] 10/05/2024 11:00 AM EDT Appointment [facility] [place] [address] [place] [address] 10/06/2024 11:00 AM EDT Appointment [facility] [place] [address] [place] [phone] 10/19/2024 11:00 AM EDT Appointment [facility] [place] [address] [place] [address] 10/20/2024 11:00 AM EDT Appointment [facility] [place] [address] [place] [address] 10/26/2024 1:15 PM EDT [facility] [place] [address] [place] [address] Joann Strauss PA [address] [place], [place] [phone] 02/11/2025 11:20 AM EDT Office Visit [facility] [address] [facility] [address] [place] [phone] Leonid Watson, DO [address] [place] [address] documented as of this encounter Results * Bone marrow exam (08/28/2024 9:48 AM [...] with appropriate controls. 08/31/2024 2:57 PM EDT [facility] Gross Description A. Bone Marrow [...] in 1 cassette labeled C1, multiple pieces. 08/28/24 08/31/2024 2:57 PM T [facility] Disclaimer The technical components of this case were performed at [address] [id number] The interpretation of this case included the [...] Amendments of 1988. 08/31/2024 2:57 PM EDT [facility] Bone Marrow Bone marrow clot specimen / Unknown Non-blood Collection / Unknown 08/28/2024 9:48 AM EDT 08/28/2024 11:12 AM EDT Bone marrow specimen (specimen) Specimen from bone marrow obtained by biopsy / Unknown 08/28/2024 9:48 AM EDT 08/28/2024 11:12 AM EDT Bone marrow specimen (specimen) Bone marrow clot specimen / Unknown 08/28/2024 9:48 AM EDT 08/28/2024 11:12 AM EDT us Seferino [facility] PATHOLOGY ORDERABLES Final Result [facility] [address] [place] [address], documented in this encounter Visit Diagnoses Diagnosis MGUS (monoclonal gammopathy of unknown significance)- Primary Monoclonal paraproteinemia Iron deficiency anemia due to chronic blood loss Iron deficiency anemia secondary to blood loss (chronic) Acute on chronic anemia documented in this encounter Additional Health Concerns Assessment Noted Time PHQ-9 Depression Total Score: 0 08/14/19 25 3:29 PM EDT documented as of this encounter Care Teams Sexual Abuse Counsellor Relationship Specialty Start Date End Date Rios Sousa MD [address] [facility] [address] [place] [address] PCP - General Family Medicine 05/06/24 documented as of this encounter
--- OUTSIDE RECORDS SUMMARY | 2024-09-02 13:31 | XMS_ITS | Encounter Summary ---
Author Organization [facility] Address [address] [place] [address] Care Team Providers Care Photo Checker And Assembler Name Role Phone Rios Sousa MD Primary Care Provider [phone] Encounter Details Date Type Department Care Team (Latest Contact Info) Description 09/01/2024 9:00 AM EDT Clinic Lab Collection [place] Hematology and Oncology [facility] [address] [place] [phone] Acute on chronic anemia Social History Tobacco [...] ed Within the last 3 months, yokasta lopez many times did you visit the emergency [...] for your loved ones. For example, children's librarian or elderly care for an older adult? [...] documented in this encounter Progress Notes * Priya Salazar MA - 09/01/2024 9:00 AM EDT Peripheral lab done documented in this encounter Plan of Treatment Upcoming Encounters Date Type Department Care Team (Late st Contact Info) Description 09/07/2024 9:00 AM EDT Appointment [facility] [address] [place] [phone] 09/08/2024 12:30 PM EDT Appointment [facility] [address] [place] [phone] 09/10/2024 11:00 AM EDT Office Visit Hematology and Oncology - [address] [address] Dhaval Bradley MD [address] [place] [phone] 09/21/2024 11:00 AM EDT Appointment [facility] [address] [place] [address] 09/22/2024 11:45 AM EDT Office Visit Family Medicine [place] [address] [facility] [address] [place] [address] Kiya Crespo PA [address] [facility] [address] [place] [address] 09/22/2024 12:30 PM EDT Appointment [facility] [address] [place] [address] 10/05/2024 11:00 AM EDT Appointment [facility] [address] [place] [address] 10/06/2024 11:00 AM EDT Appointment [facility] [address] [place] [address] 10/19/2024 11:00 AM EDT Appointment [facility] [address] [place] [address] 10/20/2024 11:00 AM EDT Appointment [facility] [address] [place] [address] 10/26/2024 1:15 PM EDT [facility] [place] [address] [place] [address] Joann Strauss PA [address] [place], [place] [phone] 02/11/2025 11:20 AM EDT Office Visit [facility] [address] [place] [phone] Leonid Watson DO [address] [place] [address] Scheduled Orders Name Type Priority Associated Diagnoses Orde r Schedule CBC auto differential Lab Routine Acute on chronic anemia Ordered: 09/01/2024 documented as of this encounter Visit Diagnoses Diagnosis Acute on chronic anemia documented in this encounter Orders Lab Orders Without Results Count Last Ordered D ate First Ordered Date CBC AND DIFFERENTIAL 1 09/01/2024 TYPE AND SCREEN 1 09/01/2024 documented in this encounter Additional Health Concerns Assessment Noted Time PHQ-9 Depression Total Score: 0 08/14/19 25 3:29 PM EDT documented as of this encounter Care Teams Photo Checker And Assembler Relationship Specialty Start Date End Date Rios Sousa MD [address] [facility] [address] [place] [address] PCP - General Family Medicine 05/06/24 documented as of this encounter
--- OUTSIDE RECORDS SUMMARY | 2024-09-02 13:31 | XMS_ITS ---
Author Organization [facility] [address] Address [address] [place] [address] Phone Care Team Providers Care Senior Project Manager Name Role Phone Rios Sousa MD Primary Care Provider [phone] Transitional Care Management Status:Identified (Enrolling) Start date:08/10/2024 Enrollment reason:Identified using hospital discharge data Case Team Name Relationship Phone Bettie Perez LPN Care Manager(Responsible Staf f) Continued Care and Services Coordination
--- OUTSIDE RECORDS SUMMARY | 2024-09-02 13:31 | XMS_ITS | Clinical Summary ---
Author Organization [facility] Address [address] [place] [address] Care Team Providers Care Entry Level Accountant Name Role Phone Rios Sousa MD Primary Care Provider Unavailab le Allergies Active Allergy Reactions Criticality Noted Date Comments Bee Sting Anaphylaxis High 02/27/2016 Other Other (See Comments) 07/19/2020 Rivaroxaban Rash Low 09/20/2016 Other reaction(s): Not available Medications Medication Sig Dispensed Refills Start Date End Date Status Glucagon (Gvoke HypoPen 2-Pack) 1 MG/0.2ML SOAJIndications:Hy poglycemia Inject 1 mg under the skin as needed (for severe hypoglycemic reaction). 0.4 mL 3 06/06/2021 Active Iron Combinations (IRON COMPLEX PO)Indications:Ane too Take 1 capsule by mouth daily. 0 Active amitriptyline (ELAVIL) tablet 50 mgIndications:Depr ession Take 1 tablet (50 mg total) by mouth every night at bedtime. 30 tablet 11 04/16/2023 Active buPROPion (WELLBUTRIN SR) 150 MG 12 hr tabletIndications: Major Depressive Disorder TAKE 1 TABLET BY MOUTH EVERY DAY 90 tablet 0 06/21/2023 Active cyanocobalamin 500 MCG tabletIndications: Vitamin B12 Deficiency Take 1 tablet (500 mcg total) by mouth daily. 30 tablet 1 08/27/2023 Active betamethasone dipropionate (DIPROSONE) 0.05 % creamIndications:D ermatitis 0 09/12/2023 Active ketoconazole (NIZORAL) 2 % shampooIndications :Pityriasis Versicolor APPLY TOPICALLY TWICE DAILY. APPLY TO DAMP SKIN, LATHER, LEAVE ON FOR 5 MINUTES AND RINSE 120 mL 11 10/22/2023 Active EPINEPHrine 0.3 MG/0.3ML SOAJIndications:An aphylaxis INJECT 0.3 ML (0.3 MG TOTAL) INTO THE MUSCLE ONCE FOR 1 DOSE 0 10/30/2023 Active Eliquis 5 MG TABS tablet TAKE ONE TABLET BY MOUTH EVERY TWELVE HOURS 180 tablet 1 12/18/2023 Active Insulin Aspart (NOVOLOG IJ) Inject 13 Units as directed 3 (three) times a day. Sliding scale 0 Active spironolactone (ALDACTONE) tablet 25 mg Take 1 tablet (25 mg total) by mouth daily. 30 tablet 3 12/31/2023 Active Magnesium Oxide 400 MG CAPS Take 400 mg by mouth 3 (three) times a day. 60 capsule 0 12/31/2023 Active valsartan (DIOVAN) tablet 320 mg Take 1 tablet (320 mg total) by mouth daily. 0 Active folic acid (FOLVITE) tablet 1 mgIndications:Donnie loblastic Anemia Take 1 tablet (1 mg total) by mouth daily. 90 tablet 0 01/09/2024 Active pantoprazole (PROTONIX) 40 MG tabletIndications: Gastroesophageal Reflux Disease Take 1 tablet (40 mg total) by mouth 2 (two) times a day. 180 tablet 0 01/09/2024 Active pregabalin (LYRICA) 200 MG capsuleIndications :Chronic low back pain with right-sided sciatica, unspecified back pain laterality TAKE ONE CAPSULE (200 MG TOTAL) BY MOUTH TWICE DAILY 90 capsule 0 01/10/2024 Active Ozempic, 1 MG/DOSE, 4 MG/3ML SOPNIndications:Ty pe 2 diabetes mellitus without complication, without long-term current use of insulin (HCC) INJECT 0.75 ML (1 MG TOTAL) SUBCUTANEOUSLY ONCE A WEEK 6 mL 0 01/31/2024 Active allopurinol (ZYLOPRIM) 100 MG tabletIndications: Gout TAKE ONE TABLET BY MOUTH EVERY OTHER DAY FOR 30 DAYS 45 tablet 2 02/12/2024 Active Insulin Pen Needle 32G X 4 MM MISC Inject 1 Needle under the skin daily as needed. 100 each 0 02/12/2024 Active varenicline (CHANTIX) 1 MG tablet Take 1 tablet (1 mg total) by mouth 2 (two) times a day. Take with full glass of water. 60 tablet 3 02/12/2024 Active torsemide (DEMADEX) 20 MG tabletIndications: Heart Failure,Hypertensi on Take 1 tablet (20 mg total) by mouth daily. 30 tablet 1 02/14/2024 Active colchicine 0.6 MG tablet 0 02/10/2024 Active Continuous Glucose Sensor (FreeStyle Guanako 3 Sensor) MISC 0 01/02/2024 Active Farxiga 10 MG tablet 0 02/10/2024 Active Insulin Degludec (Tresiba FlexTouch) 100 UNIT/ML SOPNIndications:Ty pe 2 diabetes mellitus with hypoglycemia without coma, with long-term current use of insulin (HCC) Inject 12 Units under the skin daily. 15 mL 1 02/19/2024 Active carvedilol (COREG) 6.25 MG tablet TAKE 1 TABLET BY MOUTH TWICE A DAY WITH MEALS 60 tablet 1 02/21/2024 Active Active Problems Problem Noted Date Diagnosed Date Acute CHF (congestive heart failure) 12/08/2023 Cellulitis 12/04/2023 Acute on chronic anemia 09/13/2023 Normocytic anemia 08/29/2023 Anemia 08/22/2023 Symptomatic anemia 08/22/2023 Dehydration 06/25/2023 Acute blood loss anemia 06/25/2023 Rectus diastasis 06/03/2023 Umbilical hernia 06/03/2023 Acute anemia 11/20/2022 Heme positive stool 11/20/2022 Overview: Added automatically from request for surgery [id number] Personal history of DVT (deep vein thrombosis) 0 08/03/2022 Monitoring for long-term anticoagulant use 08/03 Mixed hyperlipidemia 12/28/2021 Hypercalcemia 09/06/2021 Boutonniere deformity left small finger 05/31/19 22 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 12/2021 Hyperglycemia 05/26/2021 Hyperosmolar hyperglycemic state (HHS) 2 Diabetic hyperosmolar non-ketotic state 05/25/19 22 Status post lumbar surgery 10/10/2020 Type 2 diabetes mellitus, wi th long-term current use of insulin 07/26/2020 Type 2 diabetes mellitus, wi th long-term current use of insulin 07/26/2020 Stage 3 chronic kidney disease 07/19/2020 Renal stone 07/19/2020 Iron deficiency anemia 07/19/2020 Synovial cyst of lumbar spine 07/12/2020 Pseudoarthrosis of lumbar spine 01/07/2020 Swelling of left little finger 07/19/2018 Other spondylosis with radiculopathy, lumbar reg ion 08/13/2016 Iron deficiency anemia due to chronic blood loss 06/25/2016 Overview: Apr 2016 Iron deficiency anemia secondary to blood loss ( chronic) 06/25/2016 Overview: Apr 2016 History of pulmonary embolism 05/04/2016 Supratherapeutic INR 05/04/2016 Weakness 05/04/2016 IVETTE (acute kidney injury) 05/04/2016 Acute kidney injury 05/04/2016 Chronic bilateral low back pain with sciatica Degeneration of lumbar or lumbosacral interverte bral disc 03/13/2016 Routine general medical exam ination at a health care facility 03/13/2016 Acute deep vein thrombosis ( DVT) of femoral vein of left lower extremity 02/27/2016 Essential hypertension 02/27/2016 Chronic low back pain 02/27/2016 Numbness and tingling of right upper extremity 0 10/11/2015 Right hand weakness 10/11/2015 Myalgia 10/08/2015 Neck pain 10/04/2015 Shoulder impingement 10/04/2015 Cervical radiculitis 10/04/2015 Radiculitis of right cervical region 10/04/2015 Degenerative lumbar disc 04/01/2015 Lumbar foraminal stenosis 04/01/2015 Lumbar radiculopathy 03/11/2015 S/P lumbar fusion 03/11/2015 Gout Resolved Problems Problem Noted Date Diagnosed Date Resolved Date GI bleed 11/20/2022 06/03/2023 Microcytic anemia 05/04/2016 11/09/2016 Pulmonary embolus 02/27/2016 06/03/2023 Hypertensive disorder 02/27/20162023 Immunizations Name Administration Dates Next Due Covid-19 (Pfizer 12+) Bivalent 12/21/2022,2021 Covid-19 (Pfizer) Dilution Required 02/20,04/05/2021,08/25/2020,2020 Influenza Quad (Afluria/Fluz one) 0.5mL >=6mon Vial (SD-IIV4) 01/17/2017 Influenza Quad (Fluarix/Fluzone/FluLaval) 0.5mL (SD-IIV4) 02/12/2023,01/13/2021,01/25/2020,2018 Influenza Quad (Flucelvax) 0 .5mL >6mon (ccIIV4) 02/13/2018 Pneumococcal Conjugate PCV13 02/25/2019 Pneumococcal Conjugate PCV20 10/21/2023 Shingrix Vaccine (Zoster Recombinant) 03/02/2020 ,12/22/2019 Tdap 10/21/2023 Family History Medical History Relation Name Comments No Sig Med Hx Brother Scott Clotting disorder Cousin No Sig Med Hx Daughter Aubrie No Sig Med Hx Father Clotting disorder Maternal Grandmother 98 Diabetes Maternal Grandmother 98 Cancer Mother 84 Lymphoma Mother 84 No Sig Med Hx Sister Nessa Crohn's disease Son Jr Jagdish Relation Name Status Comments Brother Scott Alive Cousin Alive Daughter Aubrie Alive Father Alive Maternal Grandmother 98 Mother 84 LYMPHOMA Sister Nessa Alive Son Jr Jagdish Alive Social History Tobacco Use Types Packs/Day Years Used Date Smoking Tobacco: Every Day Cigarettes 0.3 30 Smokeless Tobacco: Never Tobacco Cessation:Ready to Q uit: Not Asked; Counseling Given: Not Answered Comments:quit 12/04/19 Alcohol Use Standard Drinks/Week Comments Yes 3 (1 standard drink = 0.6 oz pur e alcohol) DUI x 2 (last was 2004) Social Connection and Isolat ion Panel [NHANES] Answer Date Recorded In a typical week, how many times do you talk on the phone with family, friends, or neighbors? More than three times a week 09/18/2023 How often do you get togethe r with friends or relatives? More than three times a week 09/18/2023 How often do you attend chur ch or religion services? 1 to 4 times per year 09/18/2023 Do you belong to any clubs o r organizations such as yazdanism groups, unions, fraternal or athletic groups, or school groups? Yes 09/18/2023 How often do you attend meet ings of the clubs or organizations you belong to? 1 to 4 times per year 09/18/2023 Are you , , di vorced, , never , or living with a partner? 09/18/2023 Overall Financial Resource Strain (CARDIA) Answe r Date Recorded How hard is it for you to pa y for the very basics like food, housing, medical care, and heating? Not very hard 09/18/2023 Hunger Vital Sign Answer Date Recorded Within the past 12 months, y ou worried that your food would run out before you got the money to buy more. Never true 06/21/19 22 Within the past 12 months, t he food you bought just didn't last and you didn't have money to get more. Never true 06/20/2021 PRAPARE - Transportation Answer Date Re corded In the past 12 months, has l ack of transportation kept you from medical appointments or from getting medications? No 08/21 In the past 12 months, has l ack of transportation kept you from meetings, work, or from getting things needed for daily living? No 09/18/2023 Housing Stability Vital Sign Answer Rosalio e Recorded In the last 12 months, was t here a time when you were not able to pay the mortgage or rent on time? No 09/18/2023 In the last 12 months, how many places have you lived? 1 09/18/2023 In the last 12 months, was t here a time when you did not have a steady place to sleep or slept in a skilled nursing (including now)? No 09/18/2023 Sex and Gender Information Value Date Recorded Sex Assigned at Male 03/19/2018 9:53 AM EST Gender Identity Male 03/19/2018 9:53 AM EST Sexual Orientation Straight 03/19/2018 9: 53 AM EST Job Start Date Occupation Industry Not on file Not on file Not on file Last Filed Vital Signs Vital Sign Reading Time Taken Comments Blood Pressure 141/86 02/19/2024 9:47 AM EDT Pulse 103 02/19/2024 9:47 AM EDT Temperature 36.4 ??C (97.6 ??F) 02/05/2024 2:53 PM ED T Respiratory Rate 18 02/05/2024 2:53 PM EDT Oxygen Saturation 98% 02/19/2024 9:47 AM EDT Inhaled Oxygen Concentration - - Weight 97.1 kg (214 lb) 02/19/2024 9:47 AM EDT Height 182.9 cm (6') 02/19/2024 9:47 AM EDT Body Mass Index 29.02 02/19/2024 9:47 AM EDT Plan of Treatment Health Maintenance Due Date Last Done Comments Diabetes: Foot Exam 1986 Diabetes: Eye Exam (No Retinopathy) 06/24/2023 06/23/2021, 11/27/2020 (Pt Reported - Need documentation) COVID-19 Vaccine ( season) 2023 12/21/2022, 03/03/2022, 03/03/2022, Additional history exists Influenza Vaccine (#1) 2023 , 01/13/2021, 01/25/2020, Additional history exists Hemoglobin A1C Due 06/05/2024 12/04/2023, 0 08/23/2023, 06/26/2023, Additional history exists Diabetes: Microalbumin Test 10/07/2024 10/08/2023, 05/28/2023, 02/21/2022, Additional history exists Depression Screening 10/20/2024 10/21/2023, 10/21/2023, 10/21/2023, Additional history exists Preventative Health Evaluation 10/20/2024 10/21/2023, 10/21/2023, 10/18/2022, Additional history exists Tobacco Cessation Counseling 10/20/2024 10/21/2023, 05/14/2023, 07/14/2020 BMI Counseling 02/18/2025 02/19/2024, 12/21, 12/31/2023, Additional history exists Colon Cancer Screening (Colonoscopy) 11/22/2032 11/22/2022 DTap / Tdap / Td (3 - Td or Tdap) 10/20/2033 10/21/2023, 04/22/2012 Shingrix-Zoster Vaccine Addressed 03/02/20 20, 12/22/2019, 12/21/2019, Additional history exists Overridden with the intention of not completing the topic Hepatitis C Screening Completed 04/26/2023 Pneumococcal Vaccine Completed 10/21/2023, 02/26/20 19 Hepatitis B Vaccines Discontinued RSV Ped < 20 months Aged Out No longe r eligible based on patient's age to complete this topic Goals Goal Patient Goal Type Associated Problems Recent Progress Patient-Stated? Author Patient will identify signs and symptoms of CHF exacerbation and methods of prevention Chronic Care Management No Brenda Cherry RN Note: Patient will adhere to low salt diet, monitoring daily weights on a flat surface the first thing in the morning after first urination, follow heart failure action plan, and notifying PCP for signs/symptoms of fluid overload, with any weight gain of >2-3 pounds in one day of 5 pounds in one week. Patient will adhere to hypertension treatment plan Chronic Care Management No Brenda Cherry RN Note: Patient will adhere to BP medications, heart healthy/low salt diet, monitor BP and notify PCP and Business Office Associate for BP >130/80. Patient will identify signs and symptoms of diabetes exacerbation and methods of prevention Chronic Care Management No Brenda Cherry RN Note: Patient will obtain glucometer, monitor blood sugar, target fasting blood sugar 80-130, target Hemoglobin A1C <7 and adhere to low carbohydrate diet. Patient will understand worsening signs and symptoms of anemia to report Chronic Care Management No Brenda Cherry RN Note: Patient will continue Iron Infusion treatment for anemia as ordered, notify PCP if develops worsening signs/symptoms of anemia such as fatigue, tiredness, dizziness and calling 911 for shortness of breath, chest pain, black or red stool per rectum. Patient will be free from falls Chronic Care Management No Brenda Cherry RN Note: Patient will continue to limit environmental hazards to prevent patient the risk of falls. Medical Devices Implanted Type Area Jump Iron Machine Presser Device Identifier Shelf Expiration Date Model / Serial / Lot Sponge Surgiflo 8ml Hemostatic Matrix Absorbable Latex Free - [id number] - [id number] Implanted:Qty : 1 on 07/01/2017 by Panchito Pulido DO [place] [facility] Hemostatic Agent Posterior : Spine Lumbar [facility] [facility] 11/19/2018 2991 / / [id number] Surgiflo Hemostatic Matrix [facility] [id number] - [id number] Implanted:Qty : 1 on 03/26/2022 by Panchito Pulido DO at [facility] Hemostatic Agent Left: Spine Lumbar [employer] 11/20/2023 2991 / / [id number] Vivigen Cellular Bone Matrix 10cc - [id number] - [id number] Implanted:Qty : 1 on 07/01/2017 by Panchito Pulido DO at [facility] Posterior : Spine Lumbar [employer] 11/25/2017 BL-1600-0 03 / [id number] / Graft Bone Readigraft Preservon Cancellous 1-8 Mm 15 Cc Chip - [id number] - [id number] Implanted:Qty : 1 on 01/07/2020 by Panchito Pulido DO at [facility] Spine Lumbar [employer] 04/03/2024 PCAN15 / [id number] / Graft Pliafx 10cc Freeze Dry Bone Fibers Bone - [id number] - [id number] Implanted:Qty : 1 on 01/07/2020 by Panchito Pulido DO at [facility] Spine Lumbar [employer] 08/17/2023 BL-1800-1 0 / [id number] / Shell Flarehawk 9 Short 25mm - [id number] - [id number] Implanted:Qty : 1 on 01/07/2020 by Panchito Pulido DO at [facility] Spine Lumbar [employer] [id number] / / Baljit 13mm Or 40wzd08 Mm 6 Degree Version C - [id number] - [id number] Implanted:Qty : 1 on 01/07/2020 by Panchito Pulido DO at [facility] Spine Lumbar [employer] [id number] / / Cap Matrix Flat 5.5mm Step Square Thread Stardrive Cocr - [id number] - [id number] Implanted:Qty : 4 on 01/07/2020 by Panchito Pulido DO at [facility] Posterior : Spine Lumbar [employer] .632.09 9 / / Head Matrix Polyaxial Top Loading Titanium Screw Spine - [id number] - [id number] Implanted:Qty : 4 on 01/07/2020 by Panchito Pulido DO at [facility] Posterior : Spine Lumbar [employer] 04.632.00 1 / / Screw Matrix T25 Low Profile 45mm 6mm 2 Core 2 Lead - [id number] - [id number] Implanted:Qty : 2 on 01/07/2020 by Panchito Pulido DO at [facility] Posterior : Spine Lumbar [employer] 04.639.64 5 / / Screw Matrix T25 Low Profile 50mm 7mm 2 Core 2 Lead - [id number] - [id number] Implanted:Qty : 1 on 01/07/2020 by Panchito Pulido DO at [facility] Posterior : Spine Lumbar [employer] 04.639.75 0 / / Screw Matrix 50mm 8mm Thread Titanium Bone Spine - [id number] - [id number] Implanted:Qty : 1 on 01/07/2020 by Panchito Pulido DO at [facility] Posterior : Spine Lumbar [employer] 04639.85 0 / / Michael 45mm 5.5mm Curved Titanium Exfix Nonsterile - [id number] - [id number] Implanted:Qty : 1 on 01/07/2020 by Panchito Pulido DO at [facility] Spine Lumbar [employer] 04.636.04 5 / / Michael Matrix 50mm 5.5mm Curved Titanium Exfix Pedcl Posterior - [id number] - [id number] Implanted:Qty : 1 on 01/07/2020 by Panchito Pulido DO at [facility] Spine Lumbar [employer] 04.636.05 0 / / Kit Infuse Medium 2x1in 20ga 5.6ml Vial Absorbable Collagen - [id number] - [id number] Implanted:Qty : 1 on 01/07/2020 by Panchito Pulido DO at [facility] Spine Lumbar [employer] 12/20/2021 [id number] / / [id number] S Port Pwr Mri Isp 8f Micintrdcr Crba-Sissy [id number] - [id number] Implanted:Qty : 1 on 11/15/[address] Bates PA-C at [facility] [employer] [facility] 05/22/2025 [id number] / / [id number] Explanted Type Area Jump Iron Machine Presser Device Identifier Shelf Expiration Date Model / Serial / Lot Cap Revolve Locking Lumbar Spine - [id number] - [id number] Explanted:Qty: 1 on 07/01/[address] [facility] Posterior: Spine Lumbar [employer] 185.000 / / Michael Goehner 50mm 5.5mm Curved Prebent Auxillary Spinal - [id number] - [id number] Explanted:Qty: 2 on 07/01/[address] [facility] Posterior: Spine Lumbar [employer] 132.150 / / Screw Gila 50mm 6.5mm Polyaxial Titanium Bone Pedcl Spinal - [id number] - [id number] Implanted:Qty: 2 on 07/01/2017 by Panchito Pulido DO at [facility] Explanted:Qty: 2 on 01/07/2020 by Panchito Pulido DO at [facility] Posterior: Spine Lumbar [employer] 124.466 / / Caps Locking Reverse - [id number] - [id number] Implanted:Qty: 3 on 07/01/2017 by Panchito Pulido DO at [facility] Explanted:Qty: 3 on 01/07/2020 by Panchito Pulido DO at [facility] Posterior: Spine Lumbar [employer] 124.000 / / Michael Gila 65mm 5.5mm Curved Titanium Spinal Pedcl - [id number] - [id number] Implanted:Qty: 2 on 07/01/2017 by Panchito Pulido DO at [facility] Explanted:Qty: 2 on 01/07/2020 by Panchito Pulido DO at [facility] Posterior: Spine Lumbar [employer] 124.665 / / Advance Directives For more information, please contact: [phone] Documents on File Type Date Recorded Patient It Support Specialist Expl anation Advance Directive and Living Will 05/14/2018 6:55 AM Latest Code Status on File Code Status Date Activated Date Inactivated Comments Full Code 12/08/2023 10:25 PM 12/12/2023 11:41 PM Thi s code status was ascertained in the following way: Discussed . Code Status History Code Status Date Activated Date Inactivated Comments Full Code 12/04/2023 4:58 AM 12/07/2023 11:01 PM This code status was ascertained in the following way: discussion with patient . DNR 09/13/2023 9:54 PM 09/15/2023 3:05 AM This code status was ascertained in the following way: DNR . DNR 08/24/2023 1:44 PM 08/27/2023 7:15 PM This co de status was ascertained in the following way: discussion with patient . Full Code 08/22/2023 5:16 PM 08/24/2023 1:44 PM This co de status was ascertained in the following way: discussion with patient . Care Teams Entry Level Accountant Relationship Specialty Start Date End Date Rios Sousa MD PCP - General Family Medicine 03/03/15
--- OUTSIDE RECORDS SUMMARY | 2024-09-02 13:31 | XMS_ITS | Clinical Summary ---
Author Organization [facility] Address [address] [place] [id number] Care Team Providers Care Senior Web Applications Developer Name Role Phone Rios Sousa MD Primary Care Provider [phone] Marcia Kulkarni RN Unavailable [phone] Allergies Active Allergy Reactions Criticality Noted Date Comments Bee Venom Anaphylaxis High 02/27/2016 Rivaroxaban Rash/Dermatitis Low 09/20/2016 Medications apixaban (ELIQUIS) 5 MG tablet Take 1 tablet (5 mg total) by mouth 2 (two) times a day. 09/10/2017 Active buPROPion (WELLBUTRIN XL) 150 MG 24 hr tablet Take 1 tablet (150 mg total) by mouth every morning. 3 08/06/2018 Active minocycline (MINOCIN) 50 MG capsule TAKE ONE CAPSULE BY MOUTH EVERY DAY WITH FOOD 05/08/2018 Active pregabalin (LYRICA) 225 MG capsule Take 300 mg by mouth 2 (two) times a day. 09/18/2018 Active valsartan (DIOVAN) 320 MG tablet Take 1 tablet (320 mg total) by mouth. 09/22/2018 Active amitriptyline (ELAVIL) 50 MG tablet Take 1 tablet (50 mg total) by mouth nightly. 02/22/2023 Active allopurinol (ZYLOPRIM) 100 mg tablet TAKE 1 TABLET BY MOUTH EVERY OTHER DAY FOR 30 DAYS. 04/16/2023 Active Pulmicort Flexhaler 90 MCG/ACT inhaler Inhale 1 puff 2 (two) times a day. Did not start taking yet 04/26/2023 Active Ozempic, 0.25 or 0.5 MG/DOSE, 2 MG/3ML prefilled pen injection INJECT 1.5 ML (1 MG TOTAL) UNDER THE SKIN ONCE A WEEK. 04/02/2023 Active colchicine (COLCRYS) 0.6 mg tabletIndication s:Symptomatic anemia Take 0.5 tablets (0.3 mg total) by mouth every other day. 8 tablet 05/04/2023 Active carvedilol (COREG) 3.125 MG tabletIndication s:Symptomatic anemia Take 1 tablet (3.125 mg total) by mouth 2 (two) times a day with meals. 60 tablet 05/02/2023 Active folic acid (FOLVITE) 1 MG tabletIndication s:Symptomatic anemia Take 1 tablet (1 mg total) by mouth daily. 30 tablet 05/03/2023 Active insulin detemir (LevEMIR FLEXPEN) 100 UNIT/ML prefilled pen injectionIndicat ions:Symptomatic anemia Inject 25 Units under the skin every morning. 15 mL 05/02/2023 Active insulin lispro (HumaLOG/ADMELOG ) 100 units/mL injectionIndicat ions:Symptomatic anemia Inject 0.01-0.06 mL (1-6 Units total) under the skin 3 (three) times a day with meals. 10 mL 05/02/2023 Active multivitamin with minerals Tab tabletIndication s:Symptomatic anemia Take 1 tablet by mouth daily. 30 tablet 05/03/2023 Active thiamine mononitrate (VITAMIN B-1) 100 MG tabletIndication s:Symptomatic anemia Take 2 tablets (200 mg total) by mouth daily. 60 tablet 05/03/2023 Active PANTOprazole (PROTONIX) 40 MG EC tabletIndication s:Symptomatic anemia Take 1 tablet (40 mg total) by mouth 2 times a day. 60 tablet 05/02/2023 Active albuterol (PROVENTIL HFA; VENTOLIN HFA) 108 (90 Base) MCG/ACT inhalerIndicatio ns:Symptomatic anemia Inhale 2 puffs 4 times daily (every 6 hours) as needed for wheezing. 1 each 05/02/2023 Active Active Problems Patient Care Coordination No te Formatting of this note migh t be different from the original. Problem Noted Date Diagnosed Date GI bleed 04/27/2023 Gout 04/27/2023 04/27/2023 Symptomatic anemia 04/26/2023 Mixed hyperlipidemia 12/28/2021 04/27/2023 Type 2 diabetes mellitus without complication 04/27/2023 Stage 3 chronic kidney disease 07/19/2020 0 04/27/2023 Iron deficiency anemia due to chronic blood loss 06/25/2016 04/27/2023 Overview (04/27/2023): Apr 2016 Apr 2016 Apr 2016 History of pulmonary embolism 05/04/2016 DDD (degenerative disc disease), lumbosacral 04/27/2023 Essential hypertension 02/27/2016 Neck pain 10/04/2015 04/27/2023 Family History Medical History Relation Name Comments Breast cancer Maternal Grandmother Lymphoma Maternal Grandmother Relation Name Status Comments Maternal Grandmother Social History Tobacco Use Types Packs/Day Years Used Date Smoking Tobacco: Every Day Smokeless Tobacco: Never Alcohol Use Standard Drinks/Week Comments Yes 0 (1 standard drink = 0.6 oz pur e alcohol) [facility] Utilities Answer Date Recorded In the past 12 months has e electric, gas, oil, or water [employer] threatened to shut off services in your home? No 04/27/2023 Social Connection and Isolat ion Panel [NHANES] Answer Date Recorded In a typical week, how many times do you talk on the phone with family, friends, or neighbors? More than three times a week 04/27/2023 How often do you get togethe r with friends or relatives? More than three times a week 04/27/2023 Attends Shinto Services Not on file 04/27 Active Member of Clubs or Organizations Not on f ile 04/27/2023 Attends Club or Organization Meetings Not on audra e 04/27/2023 Marital Status Not on file 04/27/2023 AUDIT-C Answer Date Recorded Q1: How often do you have a drink containing alcohol? 4 or more times a week 04/26/2023 Q2: How many drinks containi ng alcohol do you have on a typical day when you are drinking? 1 or 2 Q3: How often do you have si x or more drinks on one occasion? Less than monthly 04/26/2023 Overall Financial Resource Strain (CARDIA) Answe r Date Recorded How hard is it for you to pa y for the very basics like food, housing, medical care, and heating? Not hard at all 04/27/2023 Hunger Vital Sign Answer Date Recorded Within the past 12 months, y ou worried that your food would run out before you got the money to buy more. Never true 04/27/19 24 Within the past 12 months, t he food you bought just didn't last and you didn't have money to get more. Never true 04/27/2023 PRAPARE - Transportation Answer Date Re corded In the past 12 months, has l ack of transportation kept you from medical appointments or from getting medications? No 09/2023 In the past 12 months, has l ack of transportation kept you from meetings, work, or from getting things needed for daily living? No 04/27/2023 Housing Stability Vital Sign Answer Rosalio e Recorded In the last 12 months, was t here a time when you were not able to pay the mortgage or rent on time? No 04/27/2023 In the last 12 months, how many places have you lived? 1 04/27/2023 In the last 12 months, was t here a time when you did not have a steady place to sleep or slept in a intermediate (including now)? No 04/27/2023 Sex and Gender Information Value Date Recorded Sex Assigned at Male 04/26/2023 8:54 PM EST Legal Sex Male 4:36 PM EDT Gender Identity Male 04/26/2023 8:54 PM EST Sexual Orientation Heterosexual (straight) 04/26 8:54 PM EST Last Filed Vital Signs Vital Sign Reading Time Taken Comments Blood Pressure 140/80 08/29/2023 10:56 AM EDT Pulse 97 08/29/2023 10:56 AM EDT Temperature 36.6 ??C (97.8 ??F) 05/02/2023 1:33 PM ES T Respiratory Rate 20 05/02/2023 1:33 PM EST Oxygen Saturation 97% 05/02/2023 1:33 PM EST Inhaled Oxygen Concentration - - Weight 97.1 kg (214 lb) 08/29/2023 10:56 AM EDT Height 182.9 cm (6') 08/29/2023 10:56 AM EDT Body Mass Index 29.02 08/29/2023 10:56 AM EDT Plan of Treatment Health Maintenance Due Date Last Done Comments Hepatitis C Virus Screening 1968 Foot Exam 1978 Lipid Panel 1978 Ophthalmology Exam 1978 HIV Screening 1981 DTaP/Tdap/Td Vaccines (1 - Tdap) 1987 Hepatitis B Vaccines (1 of 3 - 19+ 3-dose series) 1987 Pneumococcal Vaccines 50+ (1 of 2 - PCV) 1987 Colonoscopy 2013 Zoster (Shingles) Vaccine (1 of 2) 2018 COVID-19 Vaccine (2023-2 5 season) 2023 12/21/2022, 03/03/2022, 10/24/2021, Additional history exists Hemoglobin A1C 02/23/2024 08/23/2023, 03/0 09/2023, 05/28/2023, Additional history exists Creatinine with GFR 05/02/2024 05/02/2023, 05/01/2023, 04/30/2023, Additional history exists Microalbumin/Creatinine Rati o Urine 05/28/2024 05/28/2023, 02/21/2022, 12/19/2021, Additional history exists Influenza Vaccine 11/20/2024 02/12/2023, , 01/25/2020, Additional history exists Procedures Procedure Name Priority Date/Time Associated Diagnosis Comments COMPREHENSIVE METABOLIC PANEL Routine 05/02/2023 6:53 AM EST HEMOGLOBIN A1C WITH ESTIMATED AVERAGE GLUCOSE STAT 04/27/2023 6:31 AM EST from Last 3 Months or Most Recently Relevant to Health Maintenance Results * (ABNORMAL) Comprehensive Metabolic Panel (05/02/2023 6:53 AM EST) Glucose 120(H) 65 - 99 mg/dL 05/02/2023 8:22 AM [facility] Comment:Fasting: <100 mg/dL, Non-Fasting: <200 mg/dL (ADA 2004) Blood Urea Nitrogen (BUN) 30(H) 8 - 21 mg/dL 05/02/2023 8:22 AM [facility] Creatinine 1.5(H) 0.5 - 1.3 mg/dL 05/02/2023 8:22 AM [facility] eGFR 55(L) >59 05/02/2023 8:22 AM [facility] Comment:CKD-EPI (2020) in mL /min/1.73 sq meters. Sodium 135(L) 136 - 145 mmol/L 05/02/2023 8:22 AM [facility] Potassium 4.3 3.4 - 5.3 mmol/L 05/02/2023 8:22 AM [facility] Chloride 102 98 - 107 mmol/L 05/02/2023 8:22 AM [facility] CO2 23 22 - 33 mmol/L 05/02/2023 8:22 AM [facility] Calcium 9.0 8.7 - 10.5 mg/dL 05/02/2023 8:22 AM [facility] Alkaline Phosphatase 274(H) 45 - 128 U/L 05/02/2023 8:22 AM [facility] Aspartate Aminotrans (AST) 41 10 - 55 U/L 05/02/2023 8:22 AM [facility] Alanine Aminotrans (ALT) 18 10 - 55 U/L 05/02/2023 8:22 AM [facility] Bilirubin, Total 2.2(H) 0.2 - 1.0 mg/dL 05/02/2023 8:22 AM [facility] Protein, Total 6.1(L) 6.3 - 8.3 g/dL 05/02/2023 8:22 AM [facility] Albumin 3.4(L) 3.5 - 5.0 g/dL 05/02/2023 8:22 AM [facility] BUN/Creatinine Ratio 20 10.0 - 25.0 Ratio 05/02/2023 8:22 AM [facility] Globulin 2.7 1.5 - 3.9 g/dL 05/02/2023 8:22 AM [facility] Albumin/Globulin Ratio 1.3 1.0 - 3.0 Ratio 05/02/2023 8:22 AM [facility] Anion Gap 10 7 - 17 05/02/2023 8:22 AM [facility] Blood specimen (specimen) (Plasma/Serum) 05/02/2023 6:53 AM EST 05/02/2023 7:43 AM EST Kulwant Guerrero MD LAB BLOOD ORDERABLES Final R esult Performing Organization Address [facility] [place] [address], [place] [address] * Hemoglobin A1c with Estimated Average Glucose (04/27/2023 6:31 AM EST) Hemoglobin A1C 5.1 <5.7 % 04/27/2023 7:38 AM [facility] Comment: A1c% ? Interpretation 5.7 - 6.0 ?Increase risk of diabetes 6.1 - 6.4 ?Higher risk of diabetes > or = 6.5 ?? Consistent with diabetes Diabetes Care, 33(Supp 1):S1-S61, 2010 Estimated Average Glucose 100 mg/dL 04/27/2023 7:38 AM [facility] Blood specimen (specimen) Blood specimen / Unknown 04/27/2023 6:31 AM EST 04/27/2023 7:08 AM EST Qasim Cohen MD LAB BLOOD ORDERABLES Final Resu lt Performing Organization Address [facility] [place] [address], [place] [address] from Last 3 Months or Most Recently Relevant to Health Maintenance Insurance [facility] [employer] [employer] MEDICARE - [id number] Advance Directives * Full Code (Latest Code Status on File) Date Activated Date Inactivated Comments 04/27/2023 1:23 AM Care Teams Senior Web Applications Developer Relationship Specialty Start Date End Date Rios Sousa MD PCP - General Internal Medicine 09/03/18 Marcia Kulkarni, RN [address] [place] [address] Registered Nurse 05/28/23
--- OUTSIDE RECORDS SUMMARY | 2024-09-02 13:31 | XMS_ITS | Encounter Summary ---
Author Organization [facility] Address [address] [place] [address] Care Team Providers Care Casting Plug Assembler Name Role Phone Rios Sousa MD Primary Care Provider [phone] Reason for Referral * Consultation (Routine) - Pending Review Specialty Diagnoses / Procedures Referred By Wolf pavon Referred To Contact Physical Therapy Diagnoses Closed fracture of right ankle with routine healing, subsequent encounter Woo Le PA [address] [place] [address] Phone: tel: fax: Referral ID Status Reason Start Date Expiration Date Visits Requested Visits Authorized [id number] Pending Review Specialty Services Required 09/01/2024 09/01/2025 1 1 Encounter Details Date Type Department Care Team (Late st Contact Info) Description 09/01/2024 1:45 PM EDT Office Visit [facility]opedic [facility] - [facility] [address] [place] [phone] Woo Le PA [address] [place] [address] Closed fracture of right ankle with routine healing, subsequent encounter (Primary Dx) Social History Tobacco Use Types Packs/Day Years [...] for your loved ones. For example, child and family therapist or elderly care for an older adult? [...] Sharpe * Do you have serious difficulty dressing or bathing? Answer Date of Assessment Author No 06/26/2024 8:27 PM EST Debora Sharpe * Because of a physical, mental, or emotional condition, do you have serious difficulty doing errandsalone such as visiting the doctor? Answer Date of Assessment Author No 06/26/2024 8:27 PM EST Debora Sharpe documented as of this encounter Mental Status * Because of a physical, mental, or emotional condition, do you have serious difficulty concentrating, remembering, or making decisions? (5 years old or older) Answer Entry Date Author No 06/26/2024 8:27 PM EST Debora Sharpe documented in this encounter Progress Notes * ASHTYN Baker - 09/01/2024 1:45 PM EDT ORTHOPEDIC TRAUMA CLINIC NOTE MR#: [id number] 1. Closed fracture of right ankle with routine healing, subsequent encounter SURGERY/INJURY DATE: 05/18/2024: ORIF right ankle, Namm HPI: 09/01/2024: Patient returns to follow-up almost 4 months out from his surgery he reports doing well.The only thing he complains is that he has residual swelling in the ankle and foot particularly with activity following physical therapy. He states pain is well-controlled. No new concerns reported. The patient is requesting a renewal of his physical therapy. Past Medical History: Diagnosis Date Acid reflux DX:Acid reflux Alcoholism ([facility] V24, [facility] V28) DX:Alcoholism ([facility]) Anemia DX:Anemia Bleeding disorder ([facility] V24) DX:Bleeding disorder ([facility]) Bruises easily DX:Bruises easily Chicken pox DX:Chicken pox Depression DX:Depression;COMMENT:Remote hx Diabetes mellitus, type II ([facility] V24, [facility] V28) DX:Diabetes mellitus, type II ([facility]) DM (diabetes mellitus) ([facility] V24, [facility] V28) DX:DM (diabetes mellitus) ([facility]) DVT (deep venous thrombosis) ([facility] V24, [facility] V28) 03/2016 DX:DVT (deep venous thrombosis) ([facility]);COMMENT:left LE, patient states chronic clot Fracture of rib of right side DX:Fracture of rib of right side;COMMENT:2 ribs GERD (gastroesophageal reflux disease) DX:GERD (gastroesophageal reflux disease) GI bleed 2017 DX:GI bleed Gout DX:Gout History of transfusion DX:History of transfusion HL (hearing loss) DX:HL (hearing loss);COMMENT:Hearing aids young Hospital acquired MRSA infection 2000 DX:Hospital acquired MRSA infection;COMMENT:MRSA of Spine HTN (hypertension) DX:HTN (hypertension) Iron deficiency anemia DX:Iron deficiency anemia Kidney stone DX:Kidney stone Leg swelling DX:Leg swelling Numbness and tingling of both feet DX:Numbness and tingling of both feet Pulmonary embolus ([facility] V24, [facility] V28) 02/27/2016 DX:Pulmonary embolus ([facility]) Rheumatic fever DX:Rheumatic fever Rosacea DX:Rosacea Sleep apnea, obstructive DX:Sleep apnea, obstructive;COMMENT:CPAP recommended, pt unable to tolerate Staph infection 2006 DX:Staph infection;COMMENT:Left arm Visual impairment DX:Visual impairment;COMMENT:Wears glasses Past Surgical History: Procedure Laterality Date BACK SURGERY PROCEDURE:BACK SURGERY;COMMENT:MULTIPLE BOTULINUM TOXIN INJECTION TO EXTRAOCULAR MUSCLE PROCEDURE:HYBRID IVC FILTER INSERTION COLONOSCOPY N/A 05/09/2016 PROCEDURE:COLONOSCOPY;COMMENT:Procedure: colonoscopy; Surgeon: Jose D Hayes MD; Location: [facility] END[facility]COPY; Service: Gastroenterology; Laterality: N/A; COLONOSCOPY N/A 11/22/2022 PROCEDURE:COLONOSCOPY;COMMENT:Procedure: COLONOSCOPY; Surgeon: Giselle Hicks MD; Location: [facility] ENDOSCOPY; Service: Gastroenterology; Laterality: N/A; HAND SURGERY Left PROCEDURE:HAND SURGERY;COMMENT:x3 HARDWARE REMOVAL Posterior 07/01/2017 PROCEDURE:HARDWARE REMOVAL;COMMENT:Procedure: REMOVE HARDWARE SPINE L5 - S1; Surgeon: Panchito Pulido MD; Location: [facility] MAIN OPERATING ROOM; Service: Spine; Laterality: Posterior; LAMINECTOMY Posterior 09/26/2020 PROCEDURE:LAMINECTOMY;COMMENT:Procedure: RIGHT L3-4 MIS LAMINECTOMY FOR EXCISION OF LESION; Surgeon: Panchito Pulido MD; Location: [facility] MAIN OPERATING ROOM; Service: Spine; Laterality: Posterior; LUMBAR EPIDURAL INJECTION Bilateral 08/13/2016 PROCEDURE:LUMBAR EPIDURAL INJECTION;COMMENT:Procedure: INJECTION ANESTHETIC AGENT LUMBAR; Surgeon: Thania Leo MD; Location: [facility]; Service: Rehab Medicine; Laterality: Bilateral; LUMBAR EPIDURAL INJECTION N/A 09/12/2015 PROCEDURE:LUMBAR EPIDURAL INJECTION;COMMENT:Procedure: caudal epidural steroid injection ; Surgeon:Thania Leo MD; Location: [facility]; Service: Rehab Medicine; Laterality: N/A; LUMBAR EPIDURAL INJECTION N/A 03/03/2015 PROCEDURE:LUMBAR EPIDURAL INJECTION;COMMENT:Procedure: INJECTION STEROID LUMBAR EPIDURAL; Surgeon: Thania Leo MD; Location: [facility]; Service: Rehab Medicine; Laterality: N/A; LUMBAR FUSION Posterior 07/01/2017 PROCEDURE:LUMBAR FUSION;COMMENT:Procedure: EXTENSION OF FUSION L4 - S1; Surgeon: Panchito Pulido MD; Location: [facility] MAIN OPERATING ROOM; Service: Spine; Laterality: Posterior; LUMBAR FUSION Posterior 01/07/2020 PROCEDURE:LUMBAR FUSION;COMMENT:Procedure: L4-5 FUSION SPINE LUMBAR - TLIF 1 LEVEL; Surgeon: Panchito Pulido MD; Location: [facility] MAIN OPERATING ROOM; Service: Spine; Laterality: Posterior; LUMBAR FUSION Posterior 01/07/2020 PROCEDURE:LUMBAR FUSION;COMMENT:Procedure: L4-5 FUSION SPINE LUMBAR POSTERIOR 2 LEVELS; Surgeon: Panchito Pulido MD; Location: [facility] MAIN OPERATING ROOM; Service: Spine; Laterality: Posterior; LUMBAR LAMINECTOMY Posterior 07/01/2017 PROCEDURE:LUMBAR LAMINECTOMY;COMMENT:Procedure: L4, L5 LAMINECTOMY POSTERIOR LUMBAR ; Surgeon: Panchito Pulido MD; Location: [facility] MAIN OPERATING ROOM; Service: Spine; Laterality: Posterior; MASS EXCISION Right 08/28/2021 PROCEDURE:MASS EXCISION;COMMENT:Procedure: EXCISION OF RIGHT AXILLARY LIPOMA; Surgeon: Bib Hall MD; Location: [facility] MAIN OPERATING ROOM; Service: General; Laterality: Right; OTHER SURGICAL HISTORY Left 06/20/2018 PROCEDURE:REPAIR EXTENSOR TENDON HAND;COMMENT:Procedure: LEFT SMALL FINGER EXTENSOR TENDON RECONSTRUCTION AND PINNING; Surgeon: Woo Morales MD; Location: [facility] AMBULATORY SURGERY; Service: CSMI; Laterality: Left; OTHER SURGICAL HISTORY N/A 07/01/2017 PROCEDURE:EXPLORATION OF SPINAL FUSION;COMMENT:Procedure: L4-S1 EXPLORATION OF SPINAL FUSION; Surgeon: Panchito Pulido MD; Location: [facility] MAIN OPERATING ROOM; Service: Spine; Laterality: N/A; OTHER SURGICAL HISTORY N/A 05/10/2016 PROCEDURE:ENDOSCOPY; CAPSULE RETURN;COMMENT:Procedure: ENDOSCOPY CAPSULE RETURN; Surgeon: Jose D Hayes MD; Location: [facility] END[facility]; Service: Gastroenterology; Laterality: N/A; OTHER SURGICAL HISTORY N/A 05/10/2016 PROCEDURE:ENDOSCOPY; CAPSULE PLACEMENT;COMMENT:Procedure: ENDOSCOPY CAPSULE PLACEMENT; Surgeon: Jose D Manuel MD; Location: [facility] END[facility]COPY; Service: Gastroenterology; Laterality: N/A; OTHER SURGICAL HISTORY Posterior 01/07/2020 PROCEDURE:EXPLORATION OF SPINAL FUSION;COMMENT:Procedure: EXPLORATION OF SPINAL FUSION; Surgeon: Panchito Pulido MD; Location: [facility] MAIN OPERATING ROOM; Service: Spine; Laterality: Posterior; ULNAR NERVE TRANSPOSITION Left PROCEDURE:ULNAR NERVE TRANSPOSITION UPPER GASTROINTESTINAL ENDOSCOPY N/A 05/09/2016 PROCEDURE:UPPER GASTROINTESTINAL ENDOSCOPY;COMMENT:Procedure: UPPER ENDOSCOPY- EGD; Surgeon: Jose D Hayes MD; Location: [facility]; Service: Gastroenterology; Laterality: N/A; UPPER GASTROINTESTINAL ENDOSCOPY N/A 11/22/2022 PROCEDURE:UPPER GASTROINTESTINAL ENDOSCOPY;COMMENT:Procedure: UPPER ENDOSCOPY- EGD; Surgeon: Giselle Hicks MD; Location: [facility]; Service: Gastroenterology; Laterality: N/A; UPPER GASTROINTESTINAL ENDOSCOPY N/A 08/26/2023 PROCEDURE:UPPER GASTROINTESTINAL ENDOSCOPY;COMMENT:Procedure: UPPER ENDOSCOPY- EGD; Surgeon: Giselle Hicks MD; Location: [facility]; Service: Gastroenterology; Laterality: N/A; Social History Occupational History Not on file Tobacco Use Smoking status: Former Current packs/day: 0.25 Types: Cigarettes Smokeless tobacco: Never Substance and Sexual Activity Alcohol use: Not Currently Alcohol/week: 3.0 standard drinks of alcohol Types: 3 Standard drinks or equivalent per week Drug use: No Sexual activity: Not on file Family History Problem Relation Name Age of Onset Cancer Mother 84 Lymphoma Mother 84 No Known Problems Father No Known Problems Sister Nessa No Known Problems Brother Scott No Known Problems Daughter Aubrie Crohn's disease Son Jagdish Man Clotting disorder Maternal Grandmother 98 Diabetes Maternal Grandmother 98 Clotting disorder Cousin ALLERGIES: Bee venom protein (honey bee) and Rivaroxaban EXAMINATION: CONSTITUTIONAL: Visit Vitals Smoking Status Former Right lower extremity: Surgical site over the lateral ankle is well-healed. There is no erythema ordrainage. There is no tenderness to palpation over the lateral or medial malleolus. The patient canactively dorsiflex to 10 degrees and plantar flex to 30 degrees. Sensation intact over the dorsum of the foot. IMAGING: Radiographs of the right ankle obtained today demonstrate plate and screw fixation with 4 syndesmotic screws. In comparison to prior radiographs, the most distal screw has broken. The mortise is still well aligned and there is no evidence of other hardware failure. DIAGNOSIS/ORDERS: Right ankle ORIF PLAN: The patient will continue activity as tolerated. Continue with physical therapy to increase the range of motion and strengthening of the lower extremity. Is explained and they may have swelling in the foot and ankle following his injury and surgery for several months and this is the last thing to resolve. He was instructed to elevate, ice and apply compression to the area if swollen after a day full of activity. A follow-up appointment was offered to the patient for further evaluation and monitoring, he politely declined stating that he is traveling from [place] and will follow-up with us in the office if he needs this. He was encouraged to call with any questions or concerns. documented in this encounter Plan of Treatment Upcoming Encounters Date Type Department Care Team (Late st Contact Info) Description 09/07/2024 9:00 AM EDT Appointment [facility] [address] [place] [phone] 09/08/2024 12:30 PM EDT Appointment [facility] [address] [place] [phone] 09/10/2024 11:00 AM EDT Office Visit Hematology and Oncology - [address] [phone] Dhaval Bradley MD [address] [place] [phone] 09/21/2024 11:00 AM EDT Appointment [facility] [address] [place] [address] 09/22/2024 11:45 AM EDT Office Visit Family Medicine [place] [address] [facility] [address] [facility] [address] [place] [phone] Kiya Crespo PA [address] [facility] [address] [facility] [place] [address] 09/22/2024 12:30 PM EDT Appointment [facility] [address] [place] [phone] 10/05/2024 11:00 AM EDT Appointment [facility] [address] [place] [phone] 10/06/2024 11:00 AM EDT Appointment [facility] [place] [address] [place] [address] 10/19/2024 11:00 AM EDT Appointment [facility] [place] [address] [place] [address] 10/20/2024 11:00 AM EDT Appointment [facility] [address] [place] [phone] 10/26/2024 1:15 PM EDT [facility] [place] [address] [place] [phone] Joann Strauss PA [address] [place] [address] 02/11/2025 11:20 AM EDT Office Visit [facility] [place] [address] [place] [address] Leonid Watson DO [address] [place] [address] Scheduled Referrals Name Type Priority Associated Diagnoses Order Schedule Ambulatory referral to Physical Therapy and Athletic Training Outpatient Referral Routine Closed fracture of right ankle with routine healing, subsequent encounter 1 Occurrences starting 09/01/2024 until 09/01/2025 documented as of this encounter Visit Diagnoses Diagnosis Closed fracture of right ankle with routine healing, subsequent encounter- Primary documented in this encounter Additional Health Concerns Assessment Noted Time PHQ-9 Depression Total Score: 0 08/14/19 3:29 PM EDT documented as of this encounter Care Teams Casting Plug Assembler Relationship Specialty Start Date End Date Rios Sousa MD [address] [facility] [address] [place] [address] PCP - General Family Medicine 05/06/24 documented as of this encounter
--- OUTSIDE RECORDS SUMMARY | 2024-09-02 13:31 | XMS_ITS | Encounter Summary ---
Author Organization [facility] Address [address] [place] [address] Care Team Providers Care Welder Gas Name Role Phone Rios Sousa MD Primary Care Provider [phone] Encounter Details Date Type Department Care Team (Latest Contact Info) Description 09/01/2024 9:00 AM EDT Hospital Encounter [facility] [address] [place] [phone] Iron deficiency anemia due to chronic blood loss (Primary Dx) Social History Tobacco Use Types [...] for your loved ones. For example, children's tutor or elderly care for an older adult? [...] Sign Reading Time Taken Comments Blood Pressure 123/74 09/01/2024 9:13 AM EDT Pulse 87 09/01/2024 9:13 AM EDT Temperature 36.7 ??C (98 ??F) 09/01/2024 9:13 AM EDT Respiratory Rate 18 09/01/2024 9:13 AM EDT Oxygen Saturation 100% 09/01/2024 9:13 AM EDT Inhaled Oxygen Concentration - - Weight - - Height - - Body Mass Index - - documented in this encounter Functional Status * Are you deaf or do you have serious difficulty hearing? Answer Date of Assessment Author No 06/26/2024 8:27 PM NIDHI Debora Sharpe * Are you blind or do you have serious difficulty seeing, even when wearing glasses? Answer Date of Assessment Author No 06/26/2024 8:27 PM NIHDI Debora Sharpe * Do you have serious difficulty walking or climbing stairs? Answer Date of Assessment Author No 06/26/2024 8:27 PM NIDHI Debora Sharpe * Do you have serious difficulty dressing or bathing? Answer Date of Assessment Author No 06/26/2024 8:27 PM NIDHI Debora Sharpe * Because of a physical, [...] Entry Date Author No 06/26/2024 8:27 PM NIDHI Debora Sharpe documented in this encounter Progress Notes * Liss John RN - 09/01/2024 9:00 AM EDT Jagdish arrives to the [facility] for weekly CBCD/T&S and RN visit. Patient reports doing fine today, denies of BAJWA's, dizziness, or SOB. Today's H/H is: Latest Reference Range & Units 09/01/24 08:51 Hemoglobin 13.5 - 18.0 g/dL 7.5 (L) (P) Hematocrit 40.0 - 54.0 % 25.2 (L) (P) does not meet transfusion parameters. Copy of lab results provided and patient was discharged from clinic at baseline. He is aware of RTC next week. documented in this encounter Plan of Treatment Upcoming Encounters Date Type Department Care Team (Late st Contact Info) Description 09/07/2024 9:00 AM EDT Appointment [facility] [address] [place] [address] 09/08/2024 12:30 PM EDT Appointment [facility] [address] [place] [phone] 09/10/2024 11:00 AM EDT Office Visit Hematology and Oncology - [address] [phone] Dhaval Bradley MD [address] [place] [address] 09/21/2024 11:00 AM EDT Appointment [facility] [address] [place] [phone] 09/22/2024 11:45 AM EDT Office Visit Family Medicine [place] [address] [place] [phone] Kiya Crespo PA [address] [facility] [place] [address] 09/22/2024 12:30 PM EDT Appointment [facility] [address] [place] [address] 10/05/2024 11:00 AM EDT Appointment [facility] [address] [place] [address] 10/06/2024 11:00 AM EDT Appointment [facility] [address] [place] [address] 10/19/2024 11:00 AM EDT Appointment [facility] [address] [place] [phone] 10/20/2024 11:00 AM EDT Appointment [facility] [address] [place] [address] 10/26/2024 1:15 PM EDT [facility] [place] [address] [place] [address] Joann Strauss PA [address] [place], [place] [phone] 02/11/2025 11:20 AM EDT Office Visit [facility] [address] [place] [phone] Leonid Watson DO [address] [place] [address] documented as of this encounter Visit Diagnoses Diagnosis Iron deficiency anemia due to chronic blood loss- Primary Iron deficiency anemia secondary to blood loss (chronic) documented in this encounter Additional Health Concerns Assessment Noted Time PHQ-9 Depression Total Score: 0 08/14/19 3:29 PM EDT documented as of this encounter Care Teams Welder Gas Relationship Specialty Start Date End Date Rios Sousa MD [address] [facility] [place] [address] PCP - General Family Medicine 05/06/24 documented as of this encounter
--- OUTSIDE RECORDS SUMMARY | 2024-09-02 13:31 | XMS_ITS | Encounter Summary ---
Author Organization [facility] Address [address] [place] [address] Care Team Providers Care Denture Processor Name Role Phone Rios Sousa MD Primary Care Provider [phone] Rios Sousa MD Primary Care Provider [phone] Marcia Kulkarni RN Unavailable [phone] Encounter Details Date Type Department Care Team (Late st Contact Info) Description 1970 Scanned Document [address] [place] [phone] Provider, Generic Social History Tobacco Use Types Packs/Day Years [...] documented as of this encounter Care Teams Denture Processor Relationship Specialty Start Date End Date Rios Sousa MD PCP - General Internal Medicine 09/03/18 Rios Sousa MD PCP - General 09/02/18 Marcia Kulkarni, RN [address] [place] [phone] Registered Nurse 05/28/23 documented as of this encounter
--- OUTSIDE RECORDS SUMMARY | 2024-09-02 13:31 | XMS_ITS | Encounter Summary ---
Author Organization [facility] Address [address] [place] [address] Phone Care Team Providers Care Guidance Secretary Name Role Phone Rios Sousa MD Primary Care Provider [phone] Encounter Details Date Type Department Care Team (Late st Contact Info) Description 08/11/2020 Orders Only [facility] [address] [place] [address] Provider, MD Arley [address] [place] [address] Social History Tobacco Use Types Packs/Day Years Used Date Smoking Tobacco: Every Day Cigarettes Smokeless Tobacco: Never Alcohol Use Standard Drinks/Week Comments Yes 0 (1 standard drink = 0.6 oz pure alcohol) Alcoholic Drinks/day: Occasional social drink Sex and Gender Information Value Date Recorded Sex Assigned at Male 02/20/2022 9:58 AM EDT Legal Sex Male 4:57 PM EST Gender Identity Male 02/20/2022 9:58 AM EDT Sexual Orientation Straight 02/20/2022 9: 58 AM EDT COVID-19 Exposure Response Date Recorded In the last month, have you been in contact with someone who was confirmed or suspected to have Coronavirus / COVID-19? No / Unsure 07/19/2020 3:18 PM EDT documented as of this encounter Plan of Treatment Not on file documented as of this encounter Procedures Procedure Name Priority Date/Time Associated Diagnosis Comments EXT RESULT ENTRY Routine 08/11/2020 documented in this encounter Results * EXT RESULT ENTRY (08/11/2020) Historical Provider LAB BLOOD ORDERABLES Jesenia l Result documented in this encounter Visit Diagnoses Not on filedocumented in this encounter Care Teams Guidance Secretary Relationship Specialty Start Date End Date Rios Sousa MD [address] [facility] [address] [place] [phone] PCP - General 05/02/20 documented as of this encounter
--- OUTSIDE RECORDS SUMMARY | 2024-09-02 13:31 | XMS_ITS | Clinical Summary ---
Author Organization [address] [address] Care Team Providers Care Capacitor Tester Name Role Phone Unavailable Primary Care Provider Unavailabl e Social History Tobacco Use Types Packs/Day Years Used Date Smoking Tobacco: Never Assessed Sex and Gender Information Value Date Recorded Sex Assigned at Not on file Legal Sex Male 6:18 AM EST Gender Identity Not on file Sexual Orientation Not on file Plan of Treatment Health Maintenance Due Date Last Done Comments HIV screening 1981 Hepatitis C screening 1986 Lipid disorder screening 2008 Colon cancer screening, Colonoscopy 2013 Diabetes screening 2013 Covid-19 vaccine series (2023- season) 2023 12/21/2022, 03/03/2022, 03/03/2022, Additional history exists Influenza vaccine 12/21/2024 02/12/2023, , 01/25/2020, Additional history exists Tetanus adult (Td q 10,TDAP once) 10/20/2033 10/21/2023 RSV Immunization (1 - 1-dose 75+ series) 2043 Shingles vaccine (Shingrix) Completed 03/02/2020, 0 12/22/2019 Pneumococcal Vaccine (2 - 49 years) Discontinued 10/21/2023, 02/25/2019 Pneumococcal Vaccine (50+ years) Completed 10/21/2023, 02/25/2019 Meningococcal Vaccine Aged Out No daria nancy eligible based on patient's age to complete this topic
--- OUTSIDE RECORDS SUMMARY | 2024-09-02 13:31 | XMS_ITS | Encounter Summary ---
Author Organization [facility] Address [address] [place] [address] Care Team Providers Care Wholesale Diamond Broker Name Role Phone Rios Sousa MD Primary Care Provider [phone] Encounter Details Date Type Department Care Team (Latest Contact Info) Description 08/28/2024 8:44 AM EDT - 08/28/2024 11:59 PM EDT Hospital Encounter [facility] [address] [place] [address] Discharge Disposition: Home or Self Care Social [...] for your loved ones. For example, child adolescent psychiatrist or elderly care for an older adult? [...] of Assessment Author No 06/26/2024 8:27 PM Deboar Hedrick * Do you have serious difficulty [...] hyperglycemia, with long-term current use of insulin ([facility] V24, [facility] V28) INJECT 1 MG UNDER [...] complication, with long-term current use of insulin ([facility] V24, [facility] V28) 1 EA by Other route every 14 (fourteen) days. Box = Kit = EA 6 kit 2 06/15/2024 documented as of this encounter Discharge Disposition Disposition Code Departure Means Destination Home or Self Care documented in this encounter Plan of Treatment Upcoming Encounters Date Type Department Care Team (Late st Contact Info) Description 09/07/2024 9:00 AM EDT Appointment [facility] [address] [place] [place] [phone] 09/08/2024 12:30 PM EDT Appointment [facility] [address] [place] [phone] 09/10/2024 11:00 AM EDT Office Visit Hematology and Oncology - [address] [address] Dhaval Bradley MD [address] [place] [phone] 09/21/2024 11:00 AM EDT Appointment [facility] [address] [place] [phone] 09/22/2024 11:45 AM EDT Office Visit Family Medicine [place] [address] [facility] [address] [place] [phone] Kiya Crespo PA [address] [facility] [address] [facility] [place] [address] 09/22/2024 12:30 PM EDT Appointment [facility] [address] [place] [phone] 10/05/2024 11:00 AM EDT Appointment [facility] [address] [place] [phone] 10/06/2024 11:00 AM EDT Appointment [facility] [address] [place] [phone] 10/19/2024 11:00 AM EDT Appointment [facility] [address] [place] [address] 10/20/2024 11:00 AM EDT Appointment [facility] [address] [place] [phone] 10/26/2024 1:15 PM EDT [facility] [place] [address] [place] [phone] Joann Strauss PA [address] [place] [address] 02/11/2025 11:20 AM EDT Office Visit [facility] [address] [place] [phone] Leonid Watson DO [address] [place], [place] [phone] documented as of this encounter Visit Diagnoses Not on filedocumented in this encounter Additional Health Concerns Assessment Noted Time PHQ-9 Depression Total Score: 0 08/14/19 3:29 PM EDT documented as of this encounter Care Teams Wholesale Diamond Broker Relationship Specialty Start Date End Date Rios Sousa MD [address] [facility] [address] [place] [address] PCP - General Family Medicine 05/06/24 documented as of this encounter
--- OUTSIDE RECORDS SUMMARY | 2024-09-02 13:31 | XMS_ITS | Clinical Summary ---
Author Organization [facility] Address [address] [place] [address] Phone Care Team Providers Care Prefabricator Name Role Phone Rios Sousa MD Primary Care Provider [phone] Allergies Active Allergy Reactions Criticality Noted Date Comments Bee Venom Anaphylaxis High 02/27/2016 Other Other (see comments) 07/19/2020 Rivaroxaban Rash,Other (see comments) Low 7 Other reaction(s): Not available Medications acetaminophen (TYLENOL) 325 MG tablet Take 2 tablets by mouth 4 (four) times a day Active allopurinol (ZYLOPRIM) 100 MG tablet Take 1 tablet by mouth 1 (one) time each day 08/13/2019 Active amitriptyline (ELAVIL) 25 MG tablet Take 1 tablet by mouth at bed time Active apixaban (ELIQUIS) 5 MG tablet Take 1 tablet by mouth 2 (two) times a day 09/10/2017 Active atenolol (TENORMIN) 50 MG tablet Take 3 tablets by mouth 1 (one) time each day 08/24/2018 Active betamethasone valerate (VALISONE) 0.1 % cream Apply as directed 04/24/2018 Active pregabalin (LYRICA) 300 MG capsule Take 300 mg by mouth 2 (two) times a day 06/06/2020 Active minocycline (MINOCIN,DYNACI N) 50 MG capsule Take 50 mg by mouth 1 (one) time each day 02/14/2021 Active buPROPion SR (WELLBUTRIN SR) 150 MG 12 hr tablet Take 1 tablet by mouth 1 (one) time each day 04/25/2021 Active cyclobenzaprine (FLEXERIL) 10 MG tablet Take 10 mg by mouth if needed 04/10/2021 Active Levemir FlexTouch 100 UNIT/ML injection 04/14/2021 Active Ozempic, 1 MG/DOSE, 4 MG/3ML solution pen-injector per week 09/06/2021 Active metFORMIN XR (GLUCOPHAGE-XR) 750 MG 24 hr tablet Take 1 tablet by mouth 1 (one) time each day 09/06/2021 Active insulin aspart (NovoLOG FLEXPEN) 100 UNIT/ML injection Inject under the skin 09/06/2021 Active ferrous sulfate 325 (65 Fe) MG tablet Take 325 mg by mouth in the morning and 325 mg in the evening. 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 Hyperglycemia 05/26/2021 Hyperosmolar non-ketotic state due to diabetes m ellitus 05/25/2021 Type 2 diabetes mellitus without complication Chronic kidney disease stage 3 07/19/2020 Iron deficiency anemia 07/19/2020 Renal stone 07/19/2020 Chronic iron deficiency anemia secondary to bloo d loss 06/25/2016 Overview (07/19/2020): Apr 2016 Acute nontraumatic kidney injury 05/04/2016 Hypertensive disorder 02/27/2016 Resolved Problems Problem Noted Date Diagnosed Date Resolved Date Gout 07/19/2020 05/02/2021 Synovial cyst of lumbar spine 07/12/2020 05/02/2021 Pseudoarthrosis of spine 01/07/202002/2022 Swelling of finger of left hand 07/19/2018 05/02/2021 Lumbar spondylosis 08/13/2016 2 H/O: pulmonary embolus 05/04/201605/02 International normalized rat io above reference range 05/04/2016 05/02/2021 Weakness 05/04/2016 05/02/2021 Routine general medical exam ination at a health care facility 03/13/2016 05/02/2021 Acute deep venous thrombosis of left femoral vein 02/27/2016 05/02/2021 Chronic low back pain 02/27/20162021 Pulmonary embolism 02/27/2016 Paresthesia of upper limb 10/11/2015 Weakness of right hand 10/11/201505/02 Myalgia 10/08/2015 05/02/2021 Cervical radiculitis 10/04/2015 022 Impingement syndrome of shoulder region 10/04/2015 05/02/2021 Neck pain 10/04/2015 05/02/2021 Degeneration of lumbar intervertebral disc 04/01/2015 05/02/2021 History of lumbar fusion 03/11/201502/2022 Lumbar radiculopathy 03/11/2015 022 Immunizations Immunization Administration Dates Next Due Influenza, MDCK, PF, Quadrivalent 02/13/2018 Influenza, Quadrivalent, Pre servative Free 02/12/2023,01/13/2021,01/25/2020,2018 Influenza, Quadrivalent, Wit h Preservative 01/17/2017 Pfizer SARS-COV-2 03/03/2022,,08/25/2020,2020 Pneumococcal Conjugate 13-Valent 02/25/2019 Shingrix 03/02/2020,12/22/2019 Zoster 03/02/2020 Family History Medical History Relation Comments Cancer Mother Relation Status Comments Mother Social History Tobacco Use Types Packs/Day Years Used Date Smoking Tobacco: Every Day Cigarettes Smokeless Tobacco: Never Tobacco Cessation:Ready to Q uit: Not Asked; Counseling Given: Not Answered Alcohol Use Standard Drinks/Week Comments Yes 0 (1 standard drink = 0.6 oz pure alcohol) Alcoholic Drinks/day: Occasional social drink Sex and Gender Information Value Date Recorded Sex Assigned at Male 02/20/2022 9:58 AM EDT Legal Sex Male 4:57 PM EST Gender Identity Male 02/20/2022 9:58 AM EDT Sexual Orientation Straight 02/20/2022 9: 58 AM EDT Last Filed Vital Signs Vital Sign Reading Time Taken Comments Blood Pressure 146/80 08/21/2022 1:25 PM EDT Pulse 78 08/21/2022 1:25 PM EDT Temperature - - Respiratory Rate - - Oxygen Saturation 97% 08/21/2022 1:25 PM EDT Inhaled Oxygen Concentration - - Weight 109 kg (240 lb 3.2 oz) 05/02/2021 2:27 PM EST Height - - Body Mass Index - - Plan of Treatment Health Maintenance Due Date Last Done Comments Hepatitis B Vaccine (1 of 3 - 19+ 3-dose series) 1987 Colorectal Cancer Screening: Annual FOBT 2017 Colorectal Cancer Screening: Colonoscopy 2017 Colorectal Cancer Screening: Sigmoidoscopy 2017 Pneumococcal Vaccine: 50+ Ye ars (2 of 2 - PPSV23) 04/22/2019 02/25/2019 Diabetes: Ophthalmology Exam 10/31/2020 Diabetes: Pedal Pulse Checked 10/31/2020 Diabetes: Sensory Foot Exam 10/31/2020 Diabetes: Visual Foot Exam 10/31/2020 Diabetes: Hemoglobin A1C 09/28/2024 025, 06/11/2022, 12/19/2021, Additional history exists Influenza Vaccine (Season Ended) 2024 02/12/2023, 01/13/2021, 01/25/2020, Additional history exists Pneumococcal Vaccine: Peds ( 0 to 5 Years) and At-Risk Patients (6 to 49 Years) Discontinued 02/25/2019 Procedures Procedure Name Priority Date/Time Associated Diagnosis Comments EXT RESULT ENTRY Routine 08/24/2021 from Last 3 Months or Most Recently Relevant to Health Maintenance Results * (ABNORMAL) EXT RESULT ENTRY (08/24/2021) WBC 7.5 3.3 - 10.0 10*3/ML Red Blood Cell Count 4.78 Hemoglobin 14.5 13.5 - 17.5 Hematocrit 43.7 41.0 - 53.0 Platelets 162 150 - 399 10*3/UL MCV 91.4 82.0 - 108.0 Sodium 138 137 - 147 Potassium 4.3 3.4 - 5.5 Chloride 104.0 99.0 - 108.0 Bicarbonate (CO2) 24 22 - 30 mmol/L Anion Gap 10 <=30 MMOL/L Glucose 144 60 - 200 BUN 24(A) 4 - 21 mg/dL Calcium 10.8(A) 8.7 - 10.7 mg/dL eGFR Non-Afr Greek >60 Hemoglobin A1C 6.4(A) 4.0 - 6.0 08/24/2021 us Historical Provider LAB BLOOD ORDERABLES Jesenia l Result from Last 3 Months or Most Recently Relevant to Health Maintenance Insurance Medicaid [place] Care Teams Prefabricator Relationship Specialty Start Date End Date Rios Sousa MD [address] [place] [place] [phone] PCP - General 05/02/20
--- OUTSIDE RECORDS SUMMARY | 2024-09-02 13:31 | XMS_ITS | Encounter Summary ---
Author Organization [facility] Address [address] [place] [address] Care Team Providers Care Body Shop Manager Name Role Phone Rios Sousa MD Primary Care Provider [phone] Encounter Details Date Type Department Care Team (Late st Contact Info) Description 02/05/2024 8:00 PM EDT Hospital Encounter TH HISTORIC ENCOUNTERS [facility] CONVERSION ONLY Isaiah Robert MD [address] [place] [address] DRIVE [address] [place] [address] Social History Tobacco Use Types Packs/Day Years [...] for your loved ones. For example, child welfare manager or elderly care for an older adult? [...] Info) Description 09/07/2024 9:00 AM EDT Appointment [facility] [place] [address] [place] [phone] 09/08/2024 12:30 PM EDT Appointment [facility] [address] [place] [phone] 09/10/2024 11:00 AM EDT Office Visit Hematology and Oncology - [place] [address] [place] [address] Dhaval Bradley MD [address] [place] [address] 09/21/2024 11:00 AM EDT Appointment [facility] [address] [place] [phone] 09/22/2024 11:45 AM EDT Office Visit Family Medicine [place] [address] [facility] [address] [place] [phone] Kiya Crespo PA [address] [place] [address] 7 [facility] Family Medicine [place], [place] [address] 09/22/2024 12:30 PM EDT Appointment [facility] [address] [place] [phone] 10/05/2024 11:00 AM EDT Appointment [facility] [address] [place] [phone] 10/06/2024 11:00 AM EDT Appointment [facility] [address] [place] [phone] 10/19/2024 11:00 AM EDT Appointment [facility] [address] [place] [phone] 10/20/2024 11:00 AM EDT Appointment [facility] [address] [place] [address] 10/26/2024 1:15 PM EDT [facility] [place] [address] [place] [address] Joann Strauss PA [address] [place] [address] 02/11/2025 11:20 AM EDT Office Visit [facility] [place] [address] [place] [address] Leonid Watson, [address] [place], [place] [phone] documented as of this encounter Visit Diagnoses Not on filedocumented in this encounter Care Teams Body Shop Manager Relationship Specialty Start Date End Date Rios Sousa MD PCP - General Family Medicine 03/03/15 05/05/24 documented as of this encounter
--- OUTSIDE RECORDS SUMMARY | 2024-09-02 13:32 | XMS_ITS ---
Author Name [facility] Organization Unknown Results Test Name/Text Value Interpretation Date Range Source ABO Group Bld A [id number] [facility] Bld gp Ab Scn SerPl Ql Negative [id number] [facility] Rh Bld Positive [id number] [facility] RBC # Bld Auto 2.58M/mcL Below low normal [id number] 4.7 - 6 [facility] Basophils # Bld Auto 0.03K/mcL [id number] 0 - 0.2 [facility] Eosinophil NFr Bld Auto 6% [id number] 0 - 6 [facility] Lymphocytes # Bld Auto 0.57K/mcL Below low normal 480967871079 1 - 3.2 [facility] Eosinophil # Bld Auto 0.18K/mcL [id number] 0 - 0.5 [facility] Neutrophils NFr Bld Auto 65.5% [id number] 44 - 74 [facility] MCH RBC Qn Auto 29.1pcg 717593739516 25 - 33 [facility] MCHC RBC Auto-EntMCnc 29.8g/dL Below low normal 649206642284 32 - 36 [facility] RBC Auto 97.7FL [id number] 78 - 100 [facility] PMV Bld Auto 10.9FL 750884874575 7.4 - 11.4 [facility] Lymphocytes NFr Bld Auto 19.1% Below low normal [id number] 20 - 48 [facility] Monocytes NFr Bld Auto 8.4% [id number] 2 - 12 [facility] Hgb Bld-mCnc 7.5g/dL Below low normal [id number] 13.5 - 18 [facility] Platelet # Bld Auto 80K/mcL Below low normal [id number] 150 - 450 [facility] Neutrophils # Bld Auto 1.96K/mcL [id number] 1.8 - 7.8 [facility] RDW RBC Auto 17.2% [id number] 12.1 - 17.7 [facility] Hct VFr Bld Auto 25.2% Below low normal [id number] 40 - 54 [facility] Basophils NFr Bld Auto 0.7% 056387631860 0 - 2 [facility] WBC # Bld Auto 3K/mcL Below low normal [id number] 4 - 1 0.5 [facility] Monocytes # Bld Auto 0.25K/mcL 797600762453 0 - 0.8 [facility] PLPEth Bld-mCnc 86ng/mL 936816605480 - C [facility] Clinical senior research executive review Positive. [id number] [facility] POPEth Bld-mCnc 98ng/mL 360537891158 - [facility] HBV surface Ab SerPl IA-aCnc 0mIU/mL [id number] [facility] HBV surface Ab Ser Ql IA Negative 085881420114 - [facility] HCV Ab SerPl Ql IA Negative 957487584531 - [facility] HAV Ab Ser Ql IA Negative 999060391152 - [facility] HBV core Ab SerPl Ql IA Negative 314012112410 - [facility] HBV surface Ag SerPl Ql IA Negative 864786127294 - [facility] BUN SerPl-mCnc 38mg/dL Above high normal 371675357084 9 - 20 [facility] Potassium SerPl-sCnc 4.4mmol/L 866462860215 3.5 - 5.1 [facility] Creat SerPl-mCnc 1.7mg/dL Above high normal 517570368929 0.7 - 1.3 [facility] CO2 SerPl-sCnc 24mmol/L 073707011276 24 - 32 [facility] ALT SerPl-cCnc 20unit/L [id number] 7 - 52 [facility] AST SerPl-cCnc 28unit/L 5 - 40 [facility] eGFRcr SerPlBld CKD-EPI 2020 47mL/min/1.73m2 Below low normal - [facility] Glucose SerPl-mCnc 164mg/dL Above high normal 70 - 99 [facility] ALP SerPl-cCnc 177unit/L Above high normal 34 - 104 [facility] Calcium SerPl-mCnc 8.9mg/dL 8.4 - 10.2 [facility] BUN/Creat SerPl 22.4 Above high normal 12 - 20 [facility] Prot SerPl-mCnc 6.5g/dL 6.4 - 8.5 [facility] Chloride SerPl-sCnc 104mmol/L 98 - 107 [facility] Bilirub SerPl-mCnc 1.4mg/dL Above high normal 0.3 - 1 [facility] Anion Gap SerPl Calc-sCnc 12 5 - 14 [facility] Albumin SerPl-mCnc 4g/dL 3.5 - 5 [facility] Sodium SerPl-sCnc 140mmol/L 135 - 145 [facility] AFP SerPl-mCnc 3.2ng/mL - [facility] INR PPP 1.6 Above high normal 0.8 - 1.1 [facility] PT Bld 18.4sec Above high normal [id number] 10.5 - 13.3 [facility] Eosinophil # Bld Auto 0.1K/mcL 0 - 0.5 [facility] Eosinophil NFr Bld Auto 4% 0 - 6 [facility] RDW RBC Auto 17% 12.1 - 17.7 [facility] Hct VFr Bld Auto 28.1% Below low normal 40 - 54 [facility] Basophils # Bld Auto 0K/mcL [id number] 0 - 0.2 [facility] PMV Bld Auto 9.5FL 7.4 - 11.4 [facility] Hgb Bld-mCnc 9.1g/dL Below low normal [id number] 13.5 - 18 [facility] Lymphocytes # Bld Auto 0.6K/mcL Below low normal [id number] 1 - 3.2 [facility] RBC Auto 91FL 78 - 100 [facility] RBC # Bld Auto 3.09M/mcL Below low normal 4.7 - 6 [facility] Monocytes NFr Bld Auto 7.5% 2 - 12 [facility] Lymphocytes NFr Bld Auto 17.5% Below low normal 20 - 48 [facility] Platelet # Bld Auto 118K/mcL Below low normal 150 - 450 [facility] Neutrophils # Bld Auto 2.3K/mcL 1.8 - 7.8 [facility] Basophils NFr Bld Auto 0.5% 0 - 2 [facility] Monocytes # Bld Auto 0.2K/mcL [id number] 0 - 0.8 [facility] WBC # Bld Auto 3.3K/mcL Below low normal 4 - 1 0.5 [facility] MCH RBC Qn Auto 29.5pcg 25 - 33 [facility] MCHC RBC Auto-EntMCnc 32.4g/dL 32 - 36 [facility] Neutrophils NFr Bld Auto 70.5% 44 - 74 [facility] Bld gp Ab Scn SerPl Ql Negative [facility] Rh Bld Positive [facility] ABO Group Bld A [facility] Neutrophils # Bld Auto 1.52K/mcL Below low normal [id number] 1.8 - 7.8 [facility] Basophils NFr Bld Auto 0.8% Normal [id number] 0 - 2 [facility] Monocytes NFr Bld Auto 10.4% Normal [id number] 2 - 12 [facility] PMV Bld Auto 11FL Normal [id number] 7.4 - 11.4 [facility] RBC # Bld Auto 2.37M/mcL Below low normal 722429935997 4.7 - 6 [facility] Eosinophil NFr Bld Auto 5.2% Normal [id number] 0 - 6 [facility] Lymphocytes # Bld Auto 0.57K/mcL Below low normal [id number] 1 - 3.2 [facility] Neutrophils NFr Bld Auto 60.5% Normal [id number] 44 - 74 [facility] RDW RBC Auto 16.5% Normal [id number] 12.1 - 17.7 [facility] Monocytes # Bld Auto 0.26K/mcL Normal [id number] 0 - 0.8 [facility] Hgb Bld-mCnc 7g/dL Critically low [id number] 13.5 - 18 [facility] Eosinophil # Bld Auto 0.13K/mcL Normal [id number] 0 - 0.5 [facility] Platelet # Bld Auto 97K/mcL Below low normal [id number] 150 - 450 [facility] Basophils # Bld Auto 0.03K/mcL Normal [id number] 0 - 0.2 [facility] MCHC RBC Auto-EntMCnc 30.6g/dL Below low normal [id number] 32 - 36 [facility] WBC # Bld Auto 2.5K/mcL Below low normal [id number] 4 - 1 0.5 [facility] Hct VFr Bld Auto 22.9% Below low normal [id number] 40 - 54 [facility] Lymphocytes NFr Bld Auto 22.7% Normal [id number] 20 - 48 [facility] MCH RBC Qn Auto 29.5pcg Normal [id number] 25 - 33 [facility] RBC Auto 96.6FL Normal [id number] 78 - 100 [facility] Bld gp Ab Scn SerPl Ql Negative Normal [id number] [facility] Rh Bld Positive Normal [id number] [facility] ABO Group Bld A Normal [id number] [facility] Ferritin SerPl-mCnc 52ng/mL Normal [id number] 20 - 250 [facility] Iron SerPl-mCnc 74mcg/dL Normal [id number] 49 - 181 [facility] UIBC SerPl-mCnc 346mcg/dL Normal [id number] 155 - 355 [facility] TIBC SerPl-mCnc 420mcg/dL Normal [id number] 250 - 450 [facility] Iron Satn MFr SerPl 18% Below low normal [id number] 20 - 45 [facility] RBC # Bld Auto 2.48M/mcL Below low normal [id number] 4.7 - 6 [facility] MCHC RBC Auto-EntMCnc 30.1g/dL Below low normal [id number] 32 - 36 [facility] Lymphocytes NFr Bld Auto 16.6% Below low normal [id number] 20 - 48 [facility] Lymphocytes # Bld Auto 0.53K/mcL Below low normal [id number] 1 - 3.2 [facility] Platelet # Bld Auto 124K/mcL Below low normal [id number] 150 - 450 [facility] PMV Bld Auto 10.3FL Normal [id number] 7.4 - 11.4 [facility] Monocytes # Bld Auto 0.18K/mcL Normal [id number] 0 - 0.8 [facility] Hct VFr Bld Auto 23.6% Below low normal [id number] 40 - 54 [facility] Basophils NFr Bld Auto 0.9% Normal [id number] 0 - 2 [facility] MCH RBC Qn Auto 28.6pcg Normal [id number] 25 - 33 [facility] Monocytes NFr Bld Auto 5.6% Normal [id number] 2 - 12 [facility] Eosinophil NFr Bld Auto 5.3% Normal [id number] 0 - 6 [facility] Neutrophils NFr Bld Auto 71.3% Normal [id number] 44 - 74 [facility] Hgb Bld-mCnc 7.1g/dL Below low normal [id number] 13.5 - 18 [facility] Neutrophils # Bld Auto 2.28K/mcL Normal [id number] 1.8 - 7.8 [facility] WBC # Bld Auto 3.2K/mcL Below low normal [id number] 4 - 1 0.5 [facility] Eosinophil # Bld Auto 0.17K/mcL Normal [id number] 0 - 0.5 [facility] RBC Auto 95.2FL Normal [id number] 78 - 100 [facility] Basophils # Bld Auto 0.03K/mcL Normal [id number] 0 - 0.2 [facility] RDW RBC Auto 15.5% Normal [id number] 12.1 - 17.7 [facility] Rh Bld Positive Normal [id number] [facility] ABO Group Bld A Normal [id number] [facility] Bld gp Ab Scn SerPl Ql Negative Normal [id number] [facility] Basophils # Bld Auto 0.04K/mcL Normal [id number] 0 - 0.2 [facility] MCHC RBC Auto-mCnc 30.9g/dL Below low normal [id number] 3 2 - 36 [facility] Neutrophils # Bld Auto 2.06K/mcL Normal [id number] 1.8 - 7.8 [facility] RBC # Bld Auto 2.73M/mcL Below low normal [id number] 4.7 - 6 [facility] Monocytes/leuk NFr Bld Auto 10.8% Normal [id number] 2 - 12 [facility] Monocytes # Bld Auto 0.36K/mcL Normal [id number] 0 - 0.8 [facility] Hgb Bld-mCnc 7.9g/dL Below low normal [id number] 13.5 - 18 [facility] Hct VFr Bld Auto 25.6% Below low normal [id number] 40 - 54 [facility] Platelet # Bld Auto 144K/mcL Below low normal [id number] 150 - 450 [facility] RDW RBC Auto-Rto 14.5% Normal [id number] 12.1 - 17.7 [facility] Lymphocytes # Bld Auto 0.69K/mcL Below low normal [id number] 1 - 3.2 [facility] Eosinophil/leuk NFr Bld Auto 5.1% Normal [id number] 0 - 6 [facility] PMV Bld Auto 9.8FL Normal [id number] 7.4 - 11.4 [facility] Basophils/leuk NFr Bld Auto 1.2% Normal [id number] 0 - 2 [facility] MCV RBC Auto 93.8FL Normal [id number] 78 - 100 [facility] Lymphocytes/leuk NFr Bld Auto 20.7% Normal [id number] 20 - 48 [facility] Eosinophil # Bld Auto 0.17K/mcL Normal [id number] 0 - 0.5 [facility] Neutrophils/leuk NFr Bld Auto 61.9% Normal [id number] 44 - 74 [facility] MCH RBC Qn Auto 28.9pcg Normal [id number] 25 - 33 [facility] WBC # Bld Auto 3.3K/mcL Below low normal [id number] 4 - 1 0.5 [facility] Glucose Bld-mCnc 280mg/dL Above high normal [id number] 70 - 199 [facility] Glucose Bld-mCnc 233mg/dL Above high normal [id number] 70 - 199 [facility] Glucose Bld-mCnc 235mg/dL Above high normal [id number] 70 - 199 [facility] Sodium SerPl-sCnc 133mmol/L Below low normal [id number] 135 - 145 [facility] Sodium SerPl-sCnc 132mmol/L Below low normal [id number] 135 - 145 [facility] Creat SerPl-mCnc 1.8mg/dL Above high normal [id number] 0.7 - 1.3 [facility] Calcium SerPl-mCnc 8.6mg/dL Normal [id number] 8.4 - 10.2 [facility] BUN SerPl-mCnc 57mg/dL Above high normal [id number] 9 - 20 [facility] BUN/Creat SerPl 31.7 Above high normal [id number] 12 - 20 [facility] Chloride SerPl-sCnc 98mmol/L Normal [id number] 98 - 107 [facility] Potassium SerPl-sCnc 3.8mmol/L Normal [id number] 3.5 - 5.1 [facility] Anion Gap SerPl-sCnc 11 Normal [id number] 5 - 14 [facility] eGFRcr SerPlBld CKD-EPI 2020 44mL/min/1.73m2 Below low normal 213760235729 - [facility] CO2 SerPl-sCnc 23mmol/L Below low normal [id number] 24 - 32 [facility] Glucose SerPl-mCnc 299mg/dL Above high normal [id number] 70 - 199 [facility] Hct VFr Bld Auto 22.3% Below low normal [id number] 40 - 54 [facility] MCH RBC Qn Auto 30.3pcg Normal [id number] 25 - 33 [facility] PMV Bld Auto 9FL Normal [id number] 7.4 - 11.4 [facility] MCHC RBC Auto-mCnc 33.3g/dL Normal [id number] 32 - 36 [facility] Platelet # Bld Auto 94K/mcL Below low normal [id number] 150 - 450 [facility] RDW RBC Auto-Rto 16.3% Normal [id number] 12.1 - 17.7 [facility] WBC # Bld Auto 3.3K/mcL Below low normal [id number] 4 - 1 0.5 [facility] RBC # Bld Auto 2.45M/mcL Below low normal [id number] 4.7 - 6 [facility] MCV RBC Auto 90.8FL Normal [id number] 78 - 100 [facility] Hgb Bld-mCnc 7.4g/dL Below low normal [id number] 13.5 - 18 [facility] Glucose Bld-mCnc 404mg/dL Above high normal [id number] 70 - 199 [facility] Glucose Bld-mCnc 390mg/dL Above high normal [id number] 70 - 199 [facility] Glucose Bld-mCnc 321mg/dL Above high normal [id number] 70 - 199 [facility] Glucose Bld-mCnc 340mg/dL Above high normal [id number] 70 - 199 [facility] Glucose Bld-mCnc 247mg/dL Above high normal [id number] 70 - 199 [facility] Glucose Bld-mCnc 252mg/dL Above high normal [id number] 70 - 199 [facility] MCH RBC Qn Auto 30.3pcg Normal [id number] 25 - 33 [facility] RDW RBC Auto-Rto 16.4% Normal [id number] 12.1 - 17.7 [facility] WBC # Bld Auto 3.7K/mcL Below low normal [id number] 4 - 1 0.5 [facility] RBC # Bld Auto 2.47M/mcL Below low normal [id number] 4.7 - 6 [facility] MCHC RBC Auto-mCnc 33.3g/dL Normal [id number] 32 - 36 [facility] MCV RBC Auto 90.8FL Normal [id number] 78 - 100 [facility] Platelet # Bld Auto 96K/mcL Below low normal [id number] 150 - 450 [facility] Hgb Bld-mCnc 7.5g/dL Below low normal [id number] 13.5 - 18 [facility] Hct VFr Bld Auto 22.5% Below low normal [id number] 40 - 54 [facility] PMV Bld Auto 8.7FL Normal [id number] 7.4 - 11.4 [facility] Glucose Bld-mCnc 335mg/dL Above high normal [id number] 70 - 199 [facility] Glucose Bld-mCnc 180mg/dL Normal [id number] 70 - 199 [facility] Glucose Bld-mCnc 194mg/dL Normal [id number] 70 - 199 [facility] Hgb Bld-mCnc 7.5g/dL Below low normal [id number] 13.5 - 18 [facility] Hct VFr Bld Auto 22.6% Below low normal [id number] 40 - 54 [facility] Glucose Bld-mCnc 249mg/dL Above high normal [id number] 70 - 199 [facility] Glucose Bld-mCnc 161mg/dL Normal [id number] 70 - 199 [facility] MCV RBC Auto 90.7FL Normal [id number] 78 - 100 [facility] Hct VFr Bld Auto 22.7% Below low normal [id number] 40 - 54 [facility] MCHC RBC Auto-mCnc 33.3g/dL Normal [id number] 32 - 36 [facility] RBC # Bld Auto 2.51M/mcL Below low normal [id number] 4.7 - 6 [facility] Hgb Bld-mCnc 7.6g/dL Below low normal [id number] 13.5 - 18 [facility] PMV Bld Auto 8.7FL Normal [id number] 7.4 - 11.4 [facility] RDW RBC Auto-Rto 16% Normal [id number] 12.1 - 17.7 [facility] WBC # Bld Auto 2.9K/mcL Below low normal [id number] 4 - 1 0.5 [facility] MCH RBC Qn Auto 30.2pcg Normal [id number] 25 - 33 [facility] Platelet # Bld Auto 89K/mcL Below low normal [id number] 150 - 450 [facility] Glucose Bld-mCnc 214mg/dL Above high normal [id number] 70 - 199 [facility] MCHC RBC Auto-mCnc 33.5g/dL Normal [id number] 32 - 36 [facility] Platelet # Bld Auto 88K/mcL Below low normal [id number] 150 - 450 [facility] Hct VFr Bld Auto 23.5% Below low normal [id number] 40 - 54 [facility] MCV RBC Auto 90.5FL Normal [id number] 78 - 100 [facility] PMV Bld Auto 8.7FL Normal [id number] 7.4 - 11.4 [facility] Hgb Bld-mCnc 7.9g/dL Below low normal [id number] 13.5 - 18 [facility] MCH RBC Qn Auto 30.3pcg Normal [id number] 25 - 33 [facility] RBC # Bld Auto 2.6M/mcL Below low normal [id number] 4.7 - 6 [facility] RDW RBC Auto-Rto 16.1% Normal [id number] 12.1 - 17.7 [facility] WBC # Bld Auto 2.9K/mcL Below low normal [id number] 4 - 1 0.5 [facility] Glucose Bld-mCnc 191mg/dL Normal [id number] 70 - 199 [facility] Glucose Bld-mCnc 178mg/dL Normal [id number] 70 - 199 [facility] Glucose Bld-mCnc 190mg/dL Normal [id number] 70 - 199 [facility] MCH RBC Qn Auto 29.8pcg Normal [id number] 25 - 33 [facility] Platelet # Bld Auto 84K/mcL Below low normal [id number] 150 - 450 [facility] PMV Bld Auto 8.9FL Normal [id number] 7.4 - 11.4 [facility] MCHC RBC Auto-mCnc 33g/dL Normal [id number] 32 - 36 [facility] RDW RBC Auto-Rto 16.5% Normal [id number] 12.1 - 17.7 [facility] Hct VFr Bld Auto 20.6% Below low normal [id number] 40 - 54 [facility] WBC # Bld Auto 2.7K/mcL Below low normal [id number] 4 - 1 0.5 [facility] RBC # Bld Auto 2.28M/mcL Below low normal [id number] 4.7 - 6 [facility] MCV RBC Auto 90.4FL Normal [id number] 78 - 100 [facility] Hgb Bld-mCnc 6.8g/dL Critically low [id number] 13.5 - 18 [facility] Glucose Bld-mCnc 215mg/dL Above high normal [id number] 70 - 199 [facility] Glucose Bld-mCnc 156mg/dL Normal [id number] 70 - 199 [facility] Platelet # Bld Auto 85K/mcL Below low normal [id number] 150 - 450 [facility] Hgb Bld-mCnc 7.2g/dL Below low normal [id number] 13.5 - 18 [facility] Hct VFr Bld Auto 21.8% Below low normal [id number] 40 - 54 [facility] RBC # Bld Auto 2.44M/mcL Below low normal [id number] 4.7 - 6 [facility] PMV Bld Auto 8.8FL Normal [id number] 7.4 - 11.4 [facility] MCHC RBC Auto-mCnc 33.1g/dL Normal [id number] 32 - 36 [facility] RDW RBC Auto-Rto 16.3% Normal [id number] 12.1 - 17.7 [facility] WBC # Bld Auto 3.5K/mcL Below low normal [id number] 4 - 1 0.5 [facility] MCV RBC Auto 89.6FL Normal [id number] 78 - 100 [facility] MCH RBC Qn Auto 29.6pcg Normal [id number] 25 - 33 [facility] Glucose Bld-mCnc 139mg/dL Normal [id number] 70 - 199 [facility] Anion Gap SerPl-sCnc 9 Normal [id number] 5 - 14 [facility] Potassium SerPl-sCnc 3.7mmol/L Normal [id number] 3.5 - 5.1 [facility] BUN SerPl-mCnc 58mg/dL Above high normal [id number] 9 - 20 [facility] Glucose SerPl-mCnc 134mg/dL Normal [id number] 70 - 199 [facility] Calcium SerPl-mCnc 8.4mg/dL Normal [id number] 8.4 - 10.2 [facility] Chloride SerPl-sCnc 103mmol/L Normal [id number] 98 - 107 [facility] BUN/Creat SerPl 32.2 Above high normal [id number] 12 - 20 [facility] eGFRcr SerPlBld CKD-EPI 2020 44mL/min/1.73m2 Below low normal [id number] - [facility] CO2 SerPl-sCnc 24mmol/L Normal [id number] 24 - 32 [facility] Creat SerPl-mCnc 1.8mg/dL Above high normal [id number] 0.7 - 1.3 [facility] Sodium SerPl-sCnc 136mmol/L Normal [id number] 135 - 145 [facility] Glucose Bld-mCnc 160mg/dL Normal [id number] 70 - 199 [facility] PMV Bld Auto 8.5FL Normal [id number] 7.4 - 11.4 [facility] MCV RBC Auto 89.9FL Normal [id number] 78 - 100 [facility] Platelet # Bld Auto 90K/mcL Below low normal [id number] 150 - 450 [facility] Eosinophil/leuk NFr Bld Auto 4.4% Normal [id number] 0 - 6 [facility] Basophils/leuk NFr Bld Auto 2.1% Above high normal [id number] 0 - 2 [facility] Lymphocytes # Bld Auto 0.9K/mcL Below low normal [id number] 1 - 3.2 [facility] MCH RBC Qn Auto 29.9pcg Normal [id number] 25 - 33 [facility] RDW RBC Auto-Rto 16% Normal [id number] 12.1 - 17.7 [facility] Hgb Bld-mCnc 7.8g/dL Below low normal [id number] 13.5 - 18 [facility] MCHC RBC Auto-mCnc 33.3g/dL Normal [id number] 32 - 36 [facility] Lymphocytes/leuk NFr Bld Auto 21.3% Normal [id number] 20 - 48 [facility] Eosinophil # Bld Auto 0.2K/mcL Normal [id number] 0 - 0.5 [facility] Neutrophils/leuk NFr Bld Auto 62.6% Normal [id number] 44 - 74 [facility] Neutrophils # Bld Auto 2.5K/mcL Normal [id number] 1.8 - 7.8 [facility] Basophils # Bld Auto 0.1K/mcL Normal [id number] 0 - 0.2 [facility] Monocytes # Bld Auto 0.4K/mcL Normal [id number] 0 - 0.8 [facility] WBC # Bld Auto 4K/mcL Normal [id number] 4 - 10.5 [facility] RBC # Bld Auto 2.6M/mcL Below low normal [id number] 4.7 - 6 [facility] Monocytes/leuk NFr Bld Auto 9.6% Normal [id number] 2 - 12 [facility] Hct VFr Bld Auto 23.4% Below low normal [id number] 40 - 54 [facility] Retics/100 RBC NFr Auto 6.6% Above high normal [id number] 0.7 - 1.7 [facility] Folate SerPl-mCnc 13.7ng/ml Normal [id number] - [facility] Vit B12 SerPl-mCnc 1413pcg/mL Above high normal 0698413827 [id number] 180 - 914 [facility] Iron SerPl-mCnc 57mcg/dL Normal [id number] 49 - 181 [facility] TIBC SerPl-mCnc 418mcg/dL Normal [id number] 250 - 450 [facility] UIBC SerPl-mCnc 361mcg/dL Above high normal [id number] 155 - 355 [facility] Iron Satn MFr SerPl 14% Below low normal [id number] 20 - 45 [facility] Anion Gap SerPl-sCnc 9 Normal [id number] 5 - 14 [facility] CO2 SerPl-sCnc 25mmol/L Normal [id number] 24 - 32 [facility] BUN SerPl-mCnc 58mg/dL Above high normal [id number] 9 - 20 [facility] BUN/Creat SerPl 32.2 Above high normal [id number] 12 - 20 [facility] eGFRcr SerPlBld CKD-EPI 2020 44mL/min/1.73m2 Below low normal 553687537972 - [facility] Sodium SerPl-sCnc 137mmol/L Normal [id number] 135 - 145 [facility] Glucose SerPl-mCnc 143mg/dL Normal [id number] 70 - 199 [facility] Calcium SerPl-mCnc 8.9mg/dL Normal [id number] 8.4 - 10.2 [facility] Potassium SerPl-sCnc 3.8mmol/L Normal [id number] 3.5 - 5.1 [facility] Creat SerPl-mCnc 1.8mg/dL Above high normal [id number] 0.7 - 1.3 [facility] Chloride SerPl-sCnc 103mmol/L Normal [id number] 98 - 107 [facility] INR PPP 1.9 Above high normal [id number] 0.8 - 1.1 [facility] PT Bld 22sec Above high normal [id number] 10.5 - 13.3 [facility] aPTT PPP 37.1sec Above high normal [id number] 25 - 37 [facility] ABO Group Bld A Normal [id number] [facility] Bld gp Ab Scn SerPl Ql Negative Normal [id number] [facility] Rh Bld Positive Normal [id number] [facility] ABO Group Bld A Normal [id number] [facility] Bld gp Ab Scn SerPl Ql Negative Normal [id number] [facility] Rh Bld Positive Normal [id number] [facility] Neutrophils # Bld Auto 2.58K/mcL Normal [id number] 1.8 - 7.8 [facility] Basophils/leuk NFr Bld Auto 1.1% Normal [id number] 0 - 2 [facility] Basophils # Bld Auto 0.04K/mcL Normal [id number] 0 - 0.2 [facility] RDW RBC Auto-Rto 15.7% Normal [id number] 12.1 - 17.7 [facility] Hct VFr Bld Auto 21.1% Below low normal [id number] 40 - 54 [facility] Hgb Bld-mCnc 6.4g/dL Critically low [id number] 13.5 - 18 [facility] Monocytes/leuk NFr Bld Auto 7.5% Normal [id number] 2 - 12 [facility] Monocytes # Bld Auto 0.27K/mcL Normal [id number] 0 - 0.8 [facility] RBC # Bld Auto 2.2M/mcL Below low normal [id number] 4.7 - 6 [facility] MCV RBC Auto 95.9FL Normal [id number] 78 - 100 [facility] PMV Bld Auto 10.4FL Normal [id number] 7.4 - 11.4 [facility] WBC # Bld Auto 3.6K/mcL Below low normal [id number] 4 - 1 0.5 [facility] Neutrophils/leuk NFr Bld Auto 71.5% Normal [id number] 44 - 74 [facility] Platelet # Bld Auto 74K/mcL Below low normal [id number] 150 - 450 [facility] Eosinophil/leuk NFr Bld Auto 3.3% Normal [id number] 0 - 6 [facility] Lymphocytes/leuk NFr Bld Auto 16.3% Below low normal [id number] 20 - 48 [facility] MCHC RBC Auto-mCnc 30.3g/dL Below low normal [id number] 3 2 - 36 [facility] Eosinophil # Bld Auto 0.12K/mcL Normal [id number] 0 - 0.5 [facility] Lymphocytes # Bld Auto 0.59K/mcL Below low normal [id number] 1 - 3.2 [facility] MCH RBC Qn Auto 29.1pcg Normal [id number] 25 - 33 C [facility] Glucose Bld-mCnc 256mg/dL Above high normal [id number] 70 - 199 [facility] Glucose Bld-mCnc 106mg/dL Normal [id number] 70 - 199 [facility] Glucose SerPl-mCnc 125mg/dL Above high normal [id number] 70 - 99 [facility] Creat SerPl-mCnc 1.5mg/dL Above high normal [id number] 0.7 - 1.3 [facility] Chloride SerPl-sCnc 107mmol/L Normal [id number] 98 - 107 [facility] BUN/Creat SerPl 30 Above high normal [id number] 12 - 20 [facility] Anion Gap SerPl-sCnc 8 Normal [id number] 5 - 14 [facility] eGFRcr SerPlBld CKD-EPI 2020 54mL/min/1.73m2 Below low normal [id number] - [facility] Calcium SerPl-mCnc 8.7mg/dL Normal [id number] 8.4 - 10.2 [facility] BUN SerPl-mCnc 45mg/dL Above high normal [id number] 9 - 20 [facility] Sodium SerPl-sCnc 139mmol/L Normal [id number] 135 - 145 [facility] Potassium SerPl-sCnc 4.1mmol/L Normal [id number] 3.5 - 5.1 [facility] CO2 SerPl-sCnc 24mmol/L Normal [id number] 24 - 32 [facility] Magnesium SerPl-mCnc 1.8mg/dL Normal [id number] 1.7 - 2.8 [facility] MCV RBC Auto 90.5FL Normal [id number] 78 - 100 [facility] PMV Bld Auto 7.8FL Normal [id number] 7.4 - 11.4 [facility] Hgb Bld-mCnc 7.5g/dL Below low normal [id number] 13.5 - 18 [facility] WBC # Bld Auto 2.5K/mcL Below low normal [id number] 4 - 1 0.5 [facility] RDW RBC Auto-Rto 16.2% Normal [id number] 12.1 - 17.7 [facility] RBC # Bld Auto 2.5M/mcL Below low normal [id number] 4.7 - 6 [facility] MCH RBC Qn Auto 29.8pcg Normal [id number] 25 - 33 [facility] MCHC RBC Auto-mCnc 32.9g/dL Normal [id number] 32 - 36 [facility] Platelet # Bld Auto 91K/mcL Below low normal [id number] 150 - 450 [facility] Hct VFr Bld Auto 22.7% Below low normal [id number] 40 - 54 [facility] Glucose Bld-mCnc 175mg/dL Normal [id number] 70 - 199 [facility] Glucose Bld-mCnc 167mg/dL Normal [id number] 70 - 199 [facility] Hct VFr Bld Auto 20% Below low normal [id number] 40 - 54 [facility] Hgb Bld-mCnc 6.5g/dL Critically low [id number] 13.5 - 18 [facility] Glucose Bld-mCnc 178mg/dL Normal [id number] 70 - 199 [facility] Glucose Bld-mCnc 165mg/dL Normal [id number] 70 - 199 [facility] Glucose Bld-mCnc 144mg/dL Normal [id number] 70 - 199 [facility] Glucose Bld-mCnc 199mg/dL Normal [id number] 70 - 199 [facility] Est. average glucose Bld gHb Est-mCnc 85mg/dL Normal [id number] [facility] HbA1c MFr Bld 4.6% Normal [id number] - 5.7 [facility] Bilirub SerPl-mCnc 1.7mg/dL Above high normal [id number] 0.3 - 1 [facility] AST SerPl-cCnc 20unit/L Normal [id number] 5 - 40 [facility] Chloride SerPl-sCnc 103mmol/L Normal [id number] 98 - 107 [facility] Creat SerPl-mCnc 1.9mg/dL Above high normal [id number] 0.7 - 1.3 [facility] Calcium SerPl-mCnc 8.9mg/dL Normal [id number] 8.4 - 10.2 [facility] BUN/Creat SerPl 30 Above high normal [id number] 12 - 20 [facility] ALT SerPl-cCnc 12unit/L Normal [id number] 7 - 52 [facility] ALP SerPl-cCnc 137unit/L Above high normal [id number] 34 - 104 [facility] BUN SerPl-mCnc 57mg/dL Above high normal [id number] 9 - 20 [facility] eGFRcr SerPlBld CKD-EPI 2020 41mL/min/1.73m2 Below low normal 847816050119 - [facility] Sodium SerPl-sCnc 137mmol/L Normal [id number] 135 - 145 [facility] Anion Gap SerPl-sCnc 9 Normal [id number] 5 - 14 [facility] Potassium SerPl-sCnc 4.3mmol/L Normal [id number] 3.5 - 5.1 [facility] Prot SerPl-mCnc 5.5g/dL Below low normal [id number] 6 .4 - 8.5 [facility] Glucose SerPl-mCnc 165mg/dL Above high normal [id number] 70 - 99 [facility] Albumin SerPl-mCnc 3.1g/dL Below low normal [id number] 3 .5 - 5 [facility] CO2 SerPl-sCnc 25mmol/L Normal [id number] 24 - 32 [facility] Magnesium SerPl-mCnc 1.9mg/dL Normal [id number] 1.7 - 2.8 [facility] WBC # Bld Auto 3.4K/mcL Below low normal [id number] 4 - 1 0.5 [facility] Hct VFr Bld Auto 18.2% Below low normal [id number] 40 - 54 [facility] Hgb Bld-mCnc 6g/dL Critically low [id number] 13.5 - 18 [facility] MCHC RBC Auto-mCnc 32.8g/dL Normal [id number] 32 - 36 [facility] Platelet # Bld Auto 97K/mcL Below low normal [id number] 150 - 450 [facility] MCH RBC Qn Auto 30.1pcg Normal [id number] 25 - 33 [facility] RBC # Bld Auto 1.98M/mcL Below low normal [id number] 4.7 - 6 [facility] RDW RBC Auto-Rto 16.9% Normal [id number] 12.1 - 17.7 [facility] PMV Bld Auto 8FL Normal [id number] 7.4 - 11.4 [facility] MCV RBC Auto 91.9FL Normal [id number] 78 - 100 [facility] Glucose Bld-mCnc 231mg/dL Above high normal [id number] 70 - 199 [facility] Glucose Bld-mCnc 149mg/dL Normal [id number] 70 - 199 [facility] Rh Bld Positive Normal [id number] [facility] ABO Group Bld A Normal [id number] [facility] Bld gp Ab Scn SerPl Ql Negative Normal [id number] [facility] Lipase SerPl-cCnc 38unit/L Normal [id number] - 82 [facility] eGFRcr SerPlBld CKD-EPI 2020 44mL/min/1.73m2 Below low normal [id number] - [facility] Bilirub SerPl-mCnc 1.2mg/dL Above high normal [id number] 0.3 - 1 [facility] Anion Gap SerPl-sCnc 10 Normal [id number] 5 - 14 [facility] Chloride SerPl-sCnc 105mmol/L Normal [id number] 98 - 107 [facility] CO2 SerPl-sCnc 23mmol/L Below low normal [id number] 24 - 32 [facility] Potassium SerPl-sCnc 4.2mmol/L Normal [id number] 3.5 - 5.1 [facility] AST SerPl-cCnc 18unit/L Normal [id number] 5 - 40 [facility] Prot SerPl-mCnc 5.7g/dL Below low normal [id number] 6 .4 - 8.5 [facility] Sodium SerPl-sCnc 138mmol/L Normal [id number] 135 - 145 [facility] BUN/Creat SerPl 33.9 Above high normal [id number] 12 - 20 [facility] BUN SerPl-mCnc 61mg/dL Above high normal [id number] 9 - 20 [facility] Glucose SerPl-mCnc 178mg/dL Normal [id number] 70 - 199 [facility] Albumin SerPl-mCnc 3.3g/dL Below low normal [id number] 3 .5 - 5 [facility] ALT SerPl-cCnc 11unit/L Normal [id number] 7 - 52 [facility] Calcium SerPl-mCnc 8.9mg/dL Normal [id number] 8.4 - 10.2 [facility] Creat SerPl-mCnc 1.8mg/dL Above high normal [id number] 0.7 - 1.3 [facility] ALP SerPl-cCnc 140unit/L Above high normal [id number] 34 - 104 [facility] Magnesium SerPl-mCnc 1.7mg/dL Normal [id number] 1.7 - 2.8 [facility] Phosphate SerPl-mCnc 3.9mg/dL Normal [id number] 2.5 - 4.5 [facility] PT Bld 21.1sec Above high normal [id number] 10.5 - 13.3 [facility] INR PPP 1.8 Above high normal [id number] 0.8 - 1.1 [facility] aPTT PPP 37.8sec Above high normal [id number] 25 - 37 [facility] LACTIC ACID 1mmol/L Normal [id number] 0.5 - 2.2 [facility] ABO Group Bld A Normal [id number] [facility] Rh Bld Positive Normal [id number] [facility] H Bld gp Ab Scn SerPl Ql Negative Normal [id number] [facility] Ferritin SerPl-mCnc 33ng/mL Normal [id number] 20 - 250 [facility] UIBC SerPl-mCnc 218mcg/dL Normal [id number] 155 - 355 [facility] Iron Satn MFr SerPl 46% Above high normal [id number] 20 - 45 [facility] TIBC SerPl-mCnc 402mcg/dL Normal [id number] 250 - 450 [facility] Iron SerPl-mCnc 184mcg/dL Above high normal [id number] 49 - 181 [facility] WBC # Bld Auto 4.3K/mcL Normal [id number] 4 - 10.5 CT [facility] Lymphocytes # Bld Auto 0.65K/mcL Below low normal [id number] 1 - 3.2 [facility] Eosinophil/leuk NFr Bld Auto 3% Normal [id number] 0 - 6 [facility] RDW RBC Auto-Rto 18.1% Above high normal [id number] 12.1 - 17.7 [facility] RBC # Bld Auto 1.62M/mcL Below low normal [id number] 4.7 - 6 [facility] MCH RBC Qn Auto 29.6pcg Normal [id number] 25 - 33 C [facility] MCHC RBC Auto-mCnc 29.6g/dL Below low normal [id number] 3 2 - 36 [facility] Hct VFr Bld Auto 16.2% Below low normal [id number] 40 - 54 [facility] Basophils/leuk NFr Bld Auto 0.7% Normal [id number] 0 - 2 [facility] Eosinophil # Bld Auto 0.13K/mcL Normal [id number] 0 - 0.5 [facility] Lymphocytes/leuk NFr Bld Auto 15.2% Below low normal [id number] 20 - 48 [facility] Hgb Bld-mCnc 4.8g/dL Critically low [id number] 13.5 - 18 [facility] Basophils # Bld Auto 0.03K/mcL Normal [id number] 0 - 0.2 [facility] MCV RBC Auto 100FL Normal [id number] 78 - 100 [facility] Monocytes/leuk NFr Bld Auto 9.8% Normal [id number] 2 - 12 [facility] Neutrophils/leuk NFr Bld Auto 70.6% Normal [id number] 44 - 74 [facility] PMV Bld Auto 9.6FL Normal [id number] 7.4 - 11.4 [facility] Platelet # Bld Auto 105K/mcL Below low normal [id number] 150 - 450 [facility] Neutrophils # Bld Auto 3.01K/mcL Normal [id number] 1.8 - 7.8 [facility] Monocytes # Bld Auto 0.42K/mcL Normal [id number] 0 - 0.8 [facility] Bld gp Ab Scn SerPl Ql Negative Normal [id number] [facility] Rh Bld Positive Normal [id number] [facility] ABO Group Bld A Normal [id number] [facility] PMV Bld Auto 9.7FL Normal [id number] 7.4 - 11.4 [facility] Monocytes # Bld Auto 0.26K/mcL Normal [id number] 0 - 0.8 [facility] Neutrophils # Bld Auto 2.56K/mcL Normal [id number] 1.8 - 7.8 [facility] MCH RBC Qn Auto 29.8pcg Normal [id number] 25 - 33 C [facility] Basophils # Bld Auto 0.03K/mcL Normal [id number] 0 - 0.2 [facility] Lymphocytes # Bld Auto 0.53K/mcL Below low normal [id number] 1 - 3.2 [facility] Hct VFr Bld Auto 21.1% Below low normal [id number] 40 - 54 [facility] RBC # Bld Auto 2.25M/mcL Below low normal [id number] 4.7 - 6 [facility] Eosinophil # Bld Auto 0.17K/mcL Normal [id number] 0 - 0.5 [facility] Monocytes/leuk NFr Bld Auto 7.3% Normal [id number] 2 - 12 [facility] Basophils/leuk NFr Bld Auto 0.8% Normal [id number] 0 - 2 [facility] Hgb Bld-mCnc 6.7g/dL Critically low [id number] 13.5 - 18 [facility] Neutrophils/leuk NFr Bld Auto 71.9% Normal [id number] 44 - 74 [facility] MCV RBC Auto 93.8FL Normal [id number] 78 - 100 [facility] RDW RBC Auto-Rto 16.9% Normal [id number] 12.1 - 17.7 [facility] Lymphocytes/leuk NFr Bld Auto 14.9% Below low normal [id number] 20 - 48 [facility] Platelet # Bld Auto 87K/mcL Below low normal [id number] 150 - 450 [facility] WBC # Bld Auto 3.6K/mcL Below low normal [id number] 4 - 1 0.5 [facility] MCHC RBC Auto-mCnc 31.8g/dL Below low normal [id number] 3 2 - 36 [facility] Eosinophil/leuk NFr Bld Auto 4.8% Normal [id number] 0 - 6 [facility] ABO Group Bld A Normal [facility] Bld gp Ab Scn SerPl Ql Negative Normal [id number] [facility] Rh Bld Positive Normal [id number] [facility] WBC # Bld Auto 4K/mcL Normal [id number] 4 - 10.5 CT [facility] Basophils # Bld Auto 0.03K/mcL Normal [id number] 0 - 0.2 [facility] Monocytes # Bld Auto 0.33K/mcL Normal [id number] 0 - 0.8 [facility] RDW RBC Auto-Rto 16.9% Normal [id number] 12.1 - 17.7 [facility] Hgb Bld-mCnc 7.4g/dL Below low normal [id number] 13.5 - 18 [facility] Neutrophils/leuk NFr Bld Auto 72.1% Normal [id number] 44 - 74 [facility] MCV RBC Auto 92.1FL Normal [id number] 78 - 100 [facility] MCH RBC Qn Auto 29.2pcg Normal [id number] 25 - 33 C [facility] Platelet # Bld Auto 109K/mcL Below low normal [id number] 150 - 450 [facility] PMV Bld Auto 9.8FL Normal [id number] 7.4 - 11.4 [facility] Lymphocytes # Bld Auto 0.58K/mcL Below low normal [id number] 1 - 3.2 [facility] Lymphocytes/leuk NFr Bld Auto 14.5% Below low normal [id number] 20 - 48 [facility] Hct VFr Bld Auto 23.3% Below low normal [id number] 40 - 54 [facility] RBC # Bld Auto 2.53M/mcL Below low normal [id number] 4.7 - 6 [facility] Basophils/leuk NFr Bld Auto 0.5% Normal [id number] 0 - 2 [facility] Monocytes/leuk NFr Bld Auto 8.3% Normal [id number] 2 - 12 [facility] Neutrophils # Bld Auto 2.88K/mcL Normal [id number] 1.8 - 7.8 [facility] Eosinophil/leuk NFr Bld Auto 3.8% Normal [id number] 0 - 6 [facility] Eosinophil # Bld Auto 0.15K/mcL Normal [id number] 0 - 0.5 [facility] MCHC RBC Auto-mCnc 31.8g/dL Below low normal [id number] 3 2 - 36 [facility] M Protein SerPl Elph-mCnc 6.4g/dL Normal [id number] 6.4 - 8.2 [facility] Albumin MFr SerPl Elph 58.6% Normal [id number] 52.9 - 66.9 [facility] B-Globulin MFr SerPl Elph 12.6% Normal [id number] 8.5 - 13.7 [facility] Alpha2 Glob MFr SerPl Elph 9% Normal [id number] 7.5 - 13.4 [facility] Albumin SerPl-mCnc 3.8g/dL Normal [id number] 3.7 - 4.9 [facility] B-Globulin SerPl Elph-mCnc 0.8g/dL Normal [id number] 0.6 - 1 [facility] Alpha2 Glob SerPl Elph-mCnc 0.6g/dL Normal [id number] 0.5 - 0.9 [facility] Gamma glob SerPl Elph-mCnc 0.9g/dL Normal [id number] 0.6 - 1.4 [facility] Alpha1 Glob SerPl Elph-mCnc 0.4g/dL Normal [id number] 0.2 - 0.4 [facility] Prot Pattern SerPl Elph-Imp See Below Normal [id number] [facility] Gamma glob MFr SerPl Elph 13.6% Normal [id number] 8.8 - 19.2 [facility] Alpha1 Glob MFr SerPl Elph 6.2% Above high normal [id number] 3.3 - 5.8 [facility] Interpretation SerPl JANIS-Imp See Below Normal [id number] [facility] Lambda LC Free Ser Neph-mCnc 4.46mg/dL Above high normal [id number] 0.57 - 2.63 [facility] [place] LC Free/Lambda Free Ser Neph 1.57 Normal [id number] 0.26 - 1.65 [facility] [place] LC Free Ser Neph-mCnc 7.02mg/dL Above high normal [id number] 0.33 - 1.94 [facility] IgA SerPl-mCnc 236mg/dL Normal [id number] 66 - 433 [facility] IgM SerPl-mCnc 120mg/dL Normal [id number] 45 - 281 [facility] IgG SerPl-mCnc 904mg/dL Normal [id number] 635 - 1741 [facility] Glucose Bld-mCnc 114mg/dL Normal [id number] 70 - 199 [facility] Phosphate SerPl-mCnc 4.1mg/dL Normal [id number] 2.5 - 4.5 [facility] BUN/Creat SerPl 29.4 Above high normal [id number] 12 - 20 [facility] Sodium SerPl-sCnc 136mmol/L Normal [id number] 135 - 145 [facility] BUN SerPl-mCnc 53mg/dL Above high normal [id number] 9 - 20 [facility] Calcium SerPl-mCnc 9.2mg/dL Normal [id number] 8.4 - 10.2 [facility] CO2 SerPl-sCnc 25mmol/L Normal [id number] 24 - 32 [facility] eGFRcr SerPlBld CKD-EPI 2021 44mL/min/1.73m2 Below low normal [id number] - [facility] Chloride SerPl-sCnc 101mmol/L Normal [id number] 98 - 107 [facility] Anion Gap SerPl-sCnc 10 Normal [id number] 5 - 14 [facility] Creat SerPl-mCnc 1.8mg/dL Above high normal [id number] 0.7 - 1.3 [facility] Potassium SerPl-sCnc 4.3mmol/L Normal [id number] 3.5 - 5.1 [facility] Glucose SerPl-mCnc 137mg/dL Normal [id number] 70 - 199 [facility] Magnesium SerPl-mCnc 1.6mg/dL Below low normal [id number] 1.7 - 2.8 [facility] Monocytes/leuk NFr Bld Auto 9.8% Normal [id number] 2 - 12 [facility] RDW RBC Auto-Rto 18.8% Above high normal [id number] 12.1 - 17.7 [facility] MCH RBC Qn Auto 29.1pcg Normal [id number] 25 - 33 C [facility] MCV RBC Auto 88.4FL Normal [id number] 78 - 100 [facility] Neutrophils/leuk NFr Bld Auto 58.6% Normal [id number] 44 - 74 [facility] Monocytes # Bld Auto 0.4K/mcL Normal [id number] 0 - 0.8 [facility] Basophils # Bld Auto 0K/mcL Normal [id number] 0 - 0.2 [facility] PMV Bld Auto 7.5FL Normal [id number] 7.4 - 11.4 [facility] Neutrophils # Bld Auto 2.2K/mcL Normal [id number] 1.8 - 7.8 [facility] Hct VFr Bld Auto 24.2% Below low normal [id number] 40 - 54 [facility] Basophils/leuk NFr Bld Auto 1.1% Normal [id number] 0 - 2 [facility] WBC # Bld Auto 3.7K/mcL Below low normal [id number] 4 - 1 0.5 [facility] Lymphocytes/leuk NFr Bld Auto 25.8% Normal [id number] 20 - 48 [facility] RBC # Bld Auto 2.74M/mcL Below low normal [id number] 4.7 - 6 [facility] Eosinophil/leuk NFr Bld Auto 4.7% Normal [id number] 0 - 6 [facility] Lymphocytes # Bld Auto 1K/mcL Normal [id number] 1 - 3.2 [facility] MCHC RBC Auto-mCnc 33g/dL Normal [id number] 32 - 36 [facility] Platelet # Bld Auto 128K/mcL Below low normal [id number] 150 - 450 [facility] Eosinophil # Bld Auto 0.2K/mcL Normal [id number] 0 - 0.5 [facility] Hgb Bld-mCnc 8g/dL Below low normal [id number] 13.5 - 18 [facility] Hgb Bld-mCnc 8g/dL Below low normal [id number] 13.5 - 18 [facility] Hct VFr Bld Auto 23.8% Below low normal [id number] 40 - 54 [facility] Glucose Bld-mCnc 195mg/dL Normal [id number] 70 - 199 [facility] Glucose Bld-mCnc 152mg/dL Normal [id number] 70 - 199 [facility] Glucose Bld-mCnc 225mg/dL Above high normal [id number] 70 - 199 [facility] Glucose Bld-mCnc 82mg/dL Normal [id number] 70 - 199 [facility] Glucose Bld-mCnc 186mg/dL Normal [id number] 70 - 199 [facility] HbA1c MFr Bld 4.9% Normal [id number] - 5.7 [facility] Est. average glucose Bld gHb Est-mCnc 94mg/dL Normal [id number] [facility] CO2 SerPl-sCnc 25mmol/L Normal [id number] 24 - 32 [facility] Anion Gap SerPl-sCnc 10 Normal [id number] 5 - 14 [facility] Potassium SerPl-sCnc 4.3mmol/L Normal [id number] 3.5 - 5.1 [facility] Calcium SerPl-mCnc 9.2mg/dL Normal [id number] 8.4 - 10.2 [facility] Chloride SerPl-sCnc 103mmol/L Normal [id number] 98 - 107 [facility] BUN SerPl-mCnc 51mg/dL Above high normal [id number] 9 - 20 [facility] Glucose SerPl-mCnc 119mg/dL Above high normal [id number] 70 - 99 [facility] BUN/Creat SerPl 34 Above high normal [id number] 12 - 20 [facility] eGFRcr SerPlBld CKD-EPI 2020 54mL/min/1.73m2 Below low normal [id number] - [facility] Creat SerPl-mCnc 1.5mg/dL Above high normal [id number] 0.7 - 1.3 [facility] Sodium SerPl-sCnc 138mmol/L Normal [id number] 135 - 145 [facility] Phosphate SerPl-mCnc 3.9mg/dL Normal [id number] 2.5 - 4.5 [facility] Magnesium SerPl-mCnc 1.7mg/dL Normal [id number] 1.7 - 2.8 [facility] Hgb Bld-mCnc 7.8g/dL Below low normal [id number] 13.5 - 18 [facility] Lymphocytes # Bld Auto 0.7K/mcL Below low normal [id number] 1 - 3.2 [facility] Platelet # Bld Auto 135K/mcL Below low normal [id number] 150 - 450 [facility] Lymphocytes/leuk NFr Bld Auto 19.8% Below low normal [id number] 20 - 48 [facility] MCH RBC Qn Auto 29.5pcg Normal [id number] 25 - 33 C [facility] MCV RBC Auto 87.9FL Normal [id number] 78 - 100 [facility] Eosinophil # Bld Auto 0.2K/mcL Normal [id number] 0 - 0.5 [facility] Monocytes/leuk NFr Bld Auto 7.9% Normal [id number] 2 - 12 [facility] PMV Bld Auto 7.5FL Normal [id number] 7.4 - 11.4 [facility] RDW RBC Auto-Rto 18.1% Above high normal [id number] 12.1 - 17.7 [facility] RBC # Bld Auto 2.63M/mcL Below low normal [id number] 4.7 - 6 [facility] Basophils # Bld Auto 0K/mcL Normal [id number] 0 - 0.2 [facility] Neutrophils # Bld Auto 2.3K/mcL Normal [id number] 1.8 - 7.8 [facility] Monocytes # Bld Auto 0.3K/mcL Normal [id number] 0 - 0.8 [facility] Neutrophils/leuk NFr Bld Auto 66% Normal [id number] 44 - 74 [facility] WBC # Bld Auto 3.5K/mcL Below low normal [id number] 4 - 1 0.5 [facility] Basophils/leuk NFr Bld Auto 1% Normal [id number] 0 - 2 [facility] Hct VFr Bld Auto 23.1% Below low normal [id number] 40 - 54 [facility] MCHC RBC Auto-mCnc 33.6g/dL Normal [id number] 32 - 36 [facility] Eosinophil/leuk NFr Bld Auto 5.3% Normal [id number] 0 - 6 [facility] Glucose Bld-mCnc 147mg/dL Normal [id number] 70 - 199 [facility] Glucose Bld-mCnc 98mg/dL Normal [id number] 70 - 199 [facility] aPTT PPP 41.1sec Above high normal [id number] 25 - 37 [facility] Hct VFr Bld Auto 25.7% Below low normal [id number] 40 - 54 [facility] Hgb Bld-mCnc 8.6g/dL Below low normal [id number] 13.5 - 18 [facility] Glucose Bld-mCnc 93mg/dL Normal [id number] 70 - 199 [facility] Glucose Bld-mCnc 126mg/dL Normal [id number] 70 - 199 [facility] Hct VFr Bld Auto 19.3% Below low normal [id number] 40 - 54 [facility] RBC # Bld Auto 2.22M/mcL Below low normal [id number] 4.7 - 6 [facility] Eosinophil # Bld Auto 0.1K/mcL Normal [id number] 0 - 0.5 [facility] Lymphocytes # Bld Auto 0.5K/mcL Below low normal [id number] 1 - 3.2 [facility] RDW RBC Auto-Rto 18.1% Above high normal [id number] 12.1 - 17.7 [facility] Neutrophils # Bld Auto 1.8K/mcL Normal [id number] 1.8 - 7.8 [facility] Basophils # Bld Auto 0K/mcL Normal [id number] 0 - 0.2 [facility] WBC # Bld Auto 2.7K/mcL Below low normal [id number] 4 - 1 0.5 [facility] Neutrophils/leuk NFr Bld Auto 65% Normal [id number] 44 - 74 [facility] PMV Bld Auto 7.5FL Normal [id number] 7.4 - 11.4 [facility] MCV RBC Auto 86.8FL Normal [id number] 78 - 100 [facility] Hgb Bld-mCnc 6.5g/dL Critically low [id number] 13.5 - 18 [facility] Basophils/leuk NFr Bld Auto 1.1% Normal [id number] 0 - 2 [facility] Monocytes/leuk NFr Bld Auto 8.6% Normal [id number] 2 - 12 [facility] Platelet # Bld Auto 124K/mcL Below low normal [id number] 150 - 450 [facility] MCHC RBC Auto-mCnc 33.5g/dL Normal [id number] 32 - 36 [facility] Monocytes # Bld Auto 0.2K/mcL Normal [id number] 0 - 0.8 [facility] Lymphocytes/leuk NFr Bld Auto 19.8% Below low normal [id number] 20 - 48 [facility] Eosinophil/leuk NFr Bld Auto 5.5% Normal [id number] 0 - 6 [facility] MCH RBC Qn Auto 29.1pcg Normal [id number] 25 - 33 C [facility] PT Bld 18.2sec Above high normal [id number] 10.5 - 13.3 [facility] INR PPP 1.5 Above high normal [id number] 0.8 - 1.1 [facility] eGFRcr SerPlBld CKD-EPI 2020 50mL/min/1.73m2 Below low normal 284917353335 - [facility] Chloride SerPl-sCnc 103mmol/L Normal [id number] 98 - 107 [facility] CO2 SerPl-sCnc 25mmol/L Normal [id number] 24 - 32 [facility] Glucose SerPl-mCnc 115mg/dL Normal [id number] 70 - 199 [facility] BUN SerPl-mCnc 54mg/dL Above high normal [id number] 9 - 20 [facility] Potassium SerPl-sCnc 4mmol/L Normal [id number] 3.5 - 5.1 [facility] Creat SerPl-mCnc 1.6mg/dL Above high normal [id number] 0.7 - 1.3 [facility] BUN/Creat SerPl 33.8 Above high normal [id number] 12 - 20 [facility] Calcium SerPl-mCnc 9.1mg/dL Normal [id number] 8.4 - 10.2 [facility] Anion Gap SerPl-sCnc 9 Normal [id number] 5 - 14 [facility] Sodium SerPl-sCnc 137mmol/L Normal [id number] 135 - 145 [facility] Magnesium SerPl-mCnc 1.7mg/dL Normal [id number] 1.7 - 2.8 [facility] Phosphate SerPl-mCnc 3.7mg/dL Normal [id number] 2.5 - 4.5 [facility] Glucose Bld-mCnc 149mg/dL Normal [id number] 70 - 199 [facility] Hct VFr Bld Auto 22.6% Below low normal [id number] 40 - 54 [facility] Hgb Bld-mCnc 7.6g/dL Below low normal [id number] 13.5 - 18 [facility] PT Bld 22.3sec Above high normal [id number] 10.5 - 13.3 [facility] INR PPP 1.9 Above high normal [id number] 0.8 - 1.1 [facility] Vit B12 SerPl-mCnc 1381pcg/mL Above high normal [id number] 51 180 - 914 [facility] Folate SerPl-mCnc 16.3ng/ml Normal [id number] - [facility] MCV RBC Auto 87.4FL Normal [id number] 78 - 100 [facility] RDW RBC Auto-Rto 18.4% Above high normal [id number] 12.1 - 17.7 [facility] Hct VFr Bld Auto 17.9% Below low normal [id number] 40 - 54 [facility] RBC # Bld Auto 2.05M/mcL Below low normal [id number] 4.7 - 6 [facility] WBC # Bld Auto 3.1K/mcL Below low normal [id number] 4 - 1 0.5 [facility] PMV Bld Auto 7.5FL Normal [id number] 7.4 - 11.4 [facility] MCH RBC Qn Auto 29.1pcg Normal [id number] 25 - 33 C [facility] Hgb Bld-mCnc 6g/dL Critically low [id number] 13.5 - 18 [facility] Platelet # Bld Auto 124K/mcL Below low normal [id number] 150 - 450 [facility] MCHC RBC Auto-mCnc 33.3g/dL Normal [id number] 32 - 36 [facility] Lymphocytes # Bld Manual 0.47K/mcL Below low normal [id number] 1 - 3.2 [facility] Neuts Seg/leuk NFr Bld Manual 72% Normal [id number] 44 - 74 [facility] Eosinophil/leuk NFr Bld Manual 5% Normal [id number] 0 - 6 [facility] Eosinophil # Bld Manual 0.16K/mcL Normal [id number] 0 - 0.5 [facility] Monocytes/leuk NFr Bld Manual 7% Normal 2 - 12 [facility] Neuts Seg # Bld Manual 2.23K/mcL Normal [id number] 1.8 - 7.8 [facility] Basophils/leuk NFr Bld Manual 1% Normal 0 - 2 [facility] Monocytes # Bld Manual 0.22K/mcL Normal [id number] 0 - 0.8 [facility] Lymphocytes/leuk NFr Bld Manual 15% Below low normal [id number] 20 - 48 [facility] Macrocytes Present Occasional Normal [id number] [facility] Basophils # Bld Manual 0.03K/mcL Normal [id number] 0 - 0.2 [facility] Lg Platelets Bld Ql Auto Platelets Appear Decreased Normal [facility] Microcytes Present Present Normal [id number] [facility] Polychromasia Present Occasional Normal [id number] [facility] ABO Group Bld A Normal [id number] [facility] Bld gp Ab Scn SerPl Ql Negative Normal [facility] Rh Bld Positive Normal [facility] Albumin SerPl-mCnc 3.5g/dL Normal [id number] 3.5 - 5 [facility] Sodium SerPl-sCnc 137mmol/L Normal [id number] 135 - 145 [facility] Prot SerPl-mCnc 5.8g/dL Below low normal [id number] 6 .4 - 8.5 [facility] BUN SerPl-mCnc 51mg/dL Above high normal [id number] 9 - 20 [facility] Potassium SerPl-sCnc 3.7mmol/L Normal [id number] 3.5 - 5.1 [facility] Calcium SerPl-mCnc 9.2mg/dL Normal [id number] 8.4 - 10.2 [facility] Chloride SerPl-sCnc 104mmol/L Normal [id number] 98 - 107 [facility] ALT SerPl-cCnc 24unit/L Normal [id number] 7 - 52 [facility] CO2 SerPl-sCnc 23mmol/L Below low normal [id number] 24 - 32 [facility] AST SerPl-cCnc 25unit/L Normal [id number] 5 - 40 [facility] Glucose SerPl-mCnc 228mg/dL Above high normal [id number] 70 - 199 [facility] Bilirub SerPl-mCnc 0.8mg/dL Normal [id number] 0.3 - 1 [facility] BUN/Creat SerPl 28.3 Above high normal [id number] 12 - 20 [facility] eGFRcr SerPlBld CKD-EPI 2021 44mL/min/1.73m2 Below low normal [id number] - [facility] ALP SerPl-cCnc 204unit/L Above high normal [id number] 34 - 104 [facility] Anion Gap SerPl-sCnc 10 Normal [id number] 5 - 14 [facility] Creat SerPl-mCnc 1.8mg/dL Above high normal [id number] 0.7 - 1.3 [facility] Anion Gap SerPl-sCnc 10 Normal [id number] 5 - 14 [facility] Calcium SerPl-mCnc 9.2mg/dL Normal [id number] 8.4 - 10.2 [facility] BUN SerPl-mCnc 51mg/dL Above high normal [id number] 9 - 20 [facility] Creat SerPl-mCnc 1.8mg/dL Above high normal [id number] 0.7 - 1.3 [facility] Sodium SerPl-sCnc 137mmol/L Normal [id number] 135 - 145 [facility] eGFRcr SerPlBld CKD-EPI 2020 44mL/min/1.73m2 Below low normal [id number] - [facility] BUN/Creat SerPl 28.3 Above high normal [id number] 12 - 20 [facility] Chloride SerPl-sCnc 104mmol/L Normal [id number] 98 - 107 [facility] Glucose SerPl-mCnc 228mg/dL Above high normal [id number] 70 - 199 [facility] CO2 SerPl-sCnc 23mmol/L Below low normal [id number] 24 - 32 [facility] Potassium SerPl-sCnc 3.7mmol/L Normal [id number] 3.5 - 5.1 [facility] Magnesium SerPl-mCnc 1.5mg/dL Below low normal [id number] 1.7 - 2.8 [facility] Ferritin SerPl-mCnc 170ng/mL Normal [id number] 20 - 250 [facility] TIBC SerPl-mCnc 350mcg/dL Normal [id number] 250 - 450 [facility] Iron SerPl-mCnc 67mcg/dL Normal [id number] 49 - 181 C [facility] UIBC SerPl-mCnc 283mcg/dL Normal [id number] 155 - 355 [facility] Iron Satn MFr SerPl 19% Below low normal [id number] 20 - 45 [facility] ABO Group Bld A Normal [id number] [facility] Bld gp Ab Scn SerPl Ql Negative Normal [id number] [facility] Rh Bld Positive Normal [id number] [facility] RDW RBC Auto-Rto 17.5% Normal [id number] 12.1 - 17.7 [facility] MCV RBC Auto 91.6FL Normal [id number] 78 - 100 [facility] Neutrophils # Bld Auto 2.88K/mcL Normal [id number] 1.8 - 7.8 [facility] Hct VFr Bld Auto 19.6% Below low normal [id number] 40 - 54 [facility] RBC # Bld Auto 2.14M/mcL Below low normal [id number] 4.7 - 6 [facility] Basophils/leuk NFr Bld Auto 0.7% Normal [id number] 0 - 2 [facility] Hgb Bld-mCnc 6.1g/dL Critically low [id number] 13.5 - 18 [facility] Monocytes/leuk NFr Bld Auto 8.1% Normal [id number] 2 - 12 [facility] Monocytes # Bld Auto 0.33K/mcL Normal [id number] 0 - 0.8 [facility] Basophils # Bld Auto 0.03K/mcL Normal [id number] 0 - 0.2 [facility] MCHC RBC Auto-mCnc 31.1g/dL Below low normal [id number] 3 2 - 36 [facility] PMV Bld Auto 9.6FL Normal [id number] 7.4 - 11.4 [facility] Platelet # Bld Auto 128K/mcL Below low normal [id number] 150 - 450 [facility] Eosinophil/leuk NFr Bld Auto 4.9% Normal [id number] 0 - 6 [facility] Eosinophil # Bld Auto 0.2K/mcL Normal [id number] 0 - 0.5 [facility] Lymphocytes # Bld Auto 0.62K/mcL Below low normal [id number] 1 - 3.2 [facility] Lymphocytes/leuk NFr Bld Auto 15.2% Below low normal [id number] 20 - 48 [facility] Neutrophils/leuk NFr Bld Auto 70.9% Normal [id number] 44 - 74 [facility] MCH RBC Qn Auto 28.5pcg Normal [id number] 25 - 33 [facility] WBC # Bld Auto 4.1K/mcL Normal [id number] 4 - 10.5 [facility] ABO Group Bld A Normal [id number] [facility] Rh Bld Positive Normal [id number] [facility] Bld gp Ab Scn SerPl Ql Negative Normal [id number] [facility] Ferritin SerPl-mCnc 114ng/mL Normal [id number] 20 - 250 [facility] UIBC SerPl-mCnc 295mcg/dL Normal [id number] 155 - 355 [facility] TIBC SerPl-mCnc 335mcg/dL Normal [id number] 250 - 450 [facility] Iron Satn MFr SerPl 12% Below low normal [id number] 20 - 45 [facility] Iron SerPl-mCnc 40mcg/dL Below low normal [id number] 49 - 181 [facility] Basophils/leuk NFr Bld Auto 0.6% Normal [id number] 0 - 2 [facility] Platelet # Bld Auto 201K/mcL Normal [id number] 150 - 450 [facility] WBC # Bld Auto 6.2K/mcL Normal [id number] 4 - 10.5 [facility] RBC # Bld Auto 3.01M/mcL Below low normal [id number] 4.7 - 6 [facility] Monocytes # Bld Auto 0.6K/mcL Normal [id number] 0 - 0.8 [facility] Monocytes/leuk NFr Bld Auto 9.7% Normal [id number] 2 - 12 [facility] Eosinophil/leuk NFr Bld Auto 4.5% Normal [id number] 0 - 6 [facility] MCHC RBC Auto-mCnc 32.1g/dL Normal [id number] 32 - 36 [facility] RDW RBC Auto-Rto 13.5% Normal [id number] 12.1 - 17.7 [facility] MCH RBC Qn Auto 28.2pcg Normal [id number] 25 - 33 [facility] Hct VFr Bld Auto 26.5% Below low normal [id number] 40 - 54 [facility] Basophils # Bld Auto 0.04K/mcL Normal [id number] 0 - 0.2 [facility] Hgb Bld-mCnc 8.5g/dL Below low normal [id number] 13.5 - 18 [facility] Lymphocytes # Bld Auto 0.73K/mcL Below low normal [id number] 1 - 3.2 [facility] PMV Bld Auto 9.9FL Normal [id number] 7.4 - 11.4 [facility] Lymphocytes/leuk NFr Bld Auto 11.8% Below low normal [id number] 20 - 48 [facility] Eosinophil # Bld Auto 0.28K/mcL Normal [id number] 0 - 0.5 [facility] Neutrophils/leuk NFr Bld Auto 73.2% Normal [id number] 44 - 74 [facility] MCV RBC Auto 88FL Normal [id number] 78 - 100 [facility] Neutrophils # Bld Auto 4.54K/mcL Normal [id number] 1.8 - 7.8 [facility] Folate SerPl-mCnc 20.4ng/ml Normal 789106155005 - [facility] Vit B12 SerPl-mCnc 2675pcg/mL Above high normal [id number] 48 180 - 914 [facility] Ferritin SerPl-mCnc 132ng/mL Normal [id number] 20 - 250 [facility] UIBC SerPl-mCnc 362mcg/dL Above high normal [id number] 155 - 355 [facility] TIBC SerPl-mCnc 404mcg/dL Normal [id number] 250 - 450 [facility] Iron Satn MFr SerPl 10% Below low normal [id number] 20 - 45 [facility] Iron SerPl-mCnc 42mcg/dL Below low normal [id number] 49 - 181 [facility] MCV RBC Auto 91.4FL Normal [id number] 78 - 100 [facility] Monocytes # Bld Auto 0.94K/mcL Above high normal [id number] 0 - 0.8 [facility] Basophils/leuk NFr Bld Auto 0.8% Normal [id number] 0 - 2 [facility] RDW RBC Auto-Rto 14.3% Normal [id number] 12.1 - 17.7 [facility] MCH RBC Qn Auto 29.3pcg Normal [id number] 25 - 33 [facility] Platelet # Bld Auto 127K/mcL Below low normal [id number] 150 - 450 [facility] Hct VFr Bld Auto 26.5% Below low normal [id number] 40 - 54 [facility] PMV Bld Auto 10.8FL Normal [id number] 7.4 - 11.4 [facility] WBC # Bld Auto 6.3K/mcL Normal [id number] 4 - 10.5 [facility] Basophils # Bld Auto 0.05K/mcL Normal [id number] 0 - 0.2 [facility] Eosinophil/leuk NFr Bld Auto 4.3% Normal [id number] 0 - 6 [facility] Lymphocytes/leuk NFr Bld Auto 15.3% Below low normal [id number] 20 - 48 [facility] Hgb Bld-mCnc 8.5g/dL Below low normal [id number] 13.5 - 18 [facility] MCHC RBC Auto-mCnc 32.1g/dL Normal [id number] 32 - 36 [facility] Neutrophils/leuk NFr Bld Auto 64.5% Normal [id number] 44 - 74 [facility] Lymphocytes # Bld Auto 0.97K/mcL Below low normal [id number] 1 - 3.2 [facility] Neutrophils # Bld Auto 4.08K/mcL Normal [id number] 1.8 - 7.8 [facility] RBC # Bld Auto 2.9M/mcL Below low normal [id number] 4.7 - 6 [facility] Monocytes/leuk NFr Bld Auto 14.9% Above high normal [id number] 2 - 12 [facility] Eosinophil # Bld Auto 0.27K/mcL Normal 0 - 0.5 [facility] ABO Group Bld A Normal [facility] Rh Bld Positive Normal [facility] Bld gp Ab Scn SerPl Ql Negative Normal [facility] Glucose Bld-mCnc 147mg/dL Normal [id number] 70 - 199 [facility] Glucose Bld-mCnc 125mg/dL Normal [id number] 70 - 199 [facility] Anion Gap SerPl-sCnc 10 Normal [id number] 5 - 14 [facility] Creat SerPl-mCnc 1.8mg/dL Above high normal [id number] 0.7 - 1.3 [facility] BUN SerPl-mCnc 69mg/dL Above high normal [id number] 9 - 20 [facility] CO2 SerPl-sCnc 24mmol/L Normal [id number] 24 - 32 [facility] Glucose SerPl-mCnc 147mg/dL Above high normal [id number] 70 - 99 [facility] eGFRcr SerPlBld CKD-EPI 2020 44mL/min/1.73m2 Below low normal [id number] - [facility] Potassium SerPl-sCnc 5.3mmol/L Above high normal [id number] 3.5 - 5.1 [facility] Calcium SerPl-mCnc 8.9mg/dL Normal [id number] 8.4 - 10.2 [facility] Chloride SerPl-sCnc 101mmol/L Normal [id number] 98 - 107 [facility] Sodium SerPl-sCnc 135mmol/L Normal [id number] 135 - 145 [facility] BUN/Creat SerPl 38.3 Above high normal [id number] 12 - 20 [facility] Magnesium SerPl-mCnc 1.2mg/dL Below low normal [id number] 1.7 - 2.8 [facility] RBC # Bld Auto 2.55M/mcL Below low normal [id number] 4.7 - 6 [facility] Basophils # Bld Auto 0K/mcL Normal [id number] 0 - 0.2 [facility] Lymphocytes # Bld Auto 0.7K/mcL Below low normal [id number] 1 - 3.2 [facility] Hct VFr Bld Auto 23.2% Below low normal [id number] 40 - 54 [facility] Monocytes/leuk NFr Bld Auto 14.5% Above high normal [id number] 2 - 12 [facility] Neutrophils/leuk NFr Bld Auto 60.1% Normal [id number] 44 - 74 [facility] Hgb Bld-mCnc 7.7g/dL Below low normal [id number] 13.5 - 18 [facility] Eosinophil/leuk NFr Bld Auto 5% Normal [id number] 0 - 6 [facility] MCHC RBC Auto-mCnc 32.9g/dL Normal [id number] 32 - 36 [facility] Basophils/leuk NFr Bld Auto 1.1% Normal [id number] 0 - 2 [facility] PMV Bld Auto 9.1FL Normal [id number] 7.4 - 11.4 [facility] WBC # Bld Auto 3.4K/mcL Below low normal [id number] 4 - 1 0.5 [facility] Monocytes # Bld Auto 0.5K/mcL Normal [id number] 0 - 0.8 [facility] Eosinophil # Bld Auto 0.2K/mcL Normal [id number] 0 - 0.5 [facility] Lymphocytes/leuk NFr Bld Auto 19.3% Below low normal [id number] 20 - 48 [facility] RDW RBC Auto-Rto 15.5% Normal [id number] 12.1 - 17.7 [facility] MCH RBC Qn Auto 30pcg Normal [id number] 25 - 33 [facility] MCV RBC Auto 91.1FL Normal [id number] 78 - 100 [facility] Platelet # Bld Auto 107K/mcL Below low normal [id number] 150 - 450 [facility] Neutrophils # Bld Auto 2K/mcL Normal [id number] 1.8 - 7.8 [facility] Glucose Bld-mCnc 217mg/dL Above high normal [id number] 70 - 199 [facility] Glucose Bld-mCnc 189mg/dL Normal [id number] 70 - 199 [facility] Glucose Bld-mCnc 123mg/dL Normal [id number] 70 - 199 [facility] Glucose Bld-mCnc 172mg/dL Normal [id number] 70 - 199 [facility] Glucose Bld-mCnc 176mg/dL Normal [id number] 70 - 199 [facility] Sodium SerPl-sCnc 133mmol/L Below low normal [id number] 135 - 145 [facility] CO2 SerPl-sCnc 25mmol/L Normal [id number] 24 - 32 [facility] Calcium SerPl-mCnc 9.1mg/dL Normal [id number] 8.4 - 10.2 [facility] Chloride SerPl-sCnc 101mmol/L Normal [id number] 98 - 107 [facility] BUN/Creat SerPl 38 Above high normal [id number] 12 - 20 [facility] eGFRcr SerPlBld CKD-EPI 2020 54mL/min/1.73m2 Below low normal [id number] - [facility] Creat SerPl-mCnc 1.5mg/dL Above high normal [id number] 0.7 - 1.3 [facility] BUN SerPl-mCnc 57mg/dL Above high normal [id number] 9 - 20 [facility] Glucose SerPl-mCnc 212mg/dL Above high normal [id number] 70 - 99 [facility] Potassium SerPl-sCnc 5.3mmol/L Above high normal [id number] 3.5 - 5.1 [facility] Anion Gap SerPl-sCnc 7 Normal [id number] 5 - 14 [facility] Neutrophils/leuk NFr Bld Auto 62.7% Normal [id number] 44 - 74 [facility] Basophils/leuk NFr Bld Auto 0.4% Normal [id number] 0 - 2 [facility] MCH RBC Qn Auto 30.2pcg Normal [id number] 25 - 33 [facility] PMV Bld Auto 9.1FL Normal [id number] 7.4 - 11.4 [facility] MCHC RBC Auto-mCnc 33.1g/dL Normal [id number] 32 - 36 [facility] Eosinophil/leuk NFr Bld Auto 2.8% Normal [id number] 0 - 6 [facility] Hct VFr Bld Auto 23.1% Below low normal [id number] 40 - 54 [facility] Monocytes # Bld Auto 0.5K/mcL Normal [id number] 0 - 0.8 [facility] WBC # Bld Auto 3.4K/mcL Below low normal [id number] 4 - 1 0.5 [facility] Lymphocytes/leuk NFr Bld Auto 18.6% Below low normal [id number] 20 - 48 [facility] Neutrophils # Bld Auto 2.1K/mcL Normal [id number] 1.8 - 7.8 [facility] Platelet # Bld Auto 111K/mcL Below low normal [id number] 150 - 450 [facility] MCV RBC Auto 91.3FL Normal [id number] 78 - 100 [facility] Monocytes/leuk NFr Bld Auto 15.5% Above high normal [id number] 2 - 12 [facility] Eosinophil # Bld Auto 0.1K/mcL Normal [id number] 0 - 0.5 [facility] Lymphocytes # Bld Auto 0.6K/mcL Below low normal [id number] 1 - 3.2 [facility] Hgb Bld-mCnc 7.6g/dL Below low normal [id number] 13.5 - 18 [facility] RBC # Bld Auto 2.53M/mcL Below low normal [id number] 4.7 - 6 [facility] Basophils # Bld Auto 0K/mcL Normal [id number] 0 - 0.2 [facility] RDW RBC Auto-Rto 16% Normal [id number] 12.1 - 17.7 [facility] Glucose Bld-mCnc 301mg/dL Above high normal [id number] - 199 [facility] Glucose Bld-mCnc 173mg/dL Normal [id number] 70 - 199 [facility] Potassium SerPl-sCnc 5.4mmol/L Above high normal [id number] 3.5 - 5.1 [facility] Glucose Bld-mCnc 226mg/dL Above high normal [id number] - 199 [facility] Glucose Bld-mCnc 274mg/dL Above high normal [id number] - 199 [facility] Glucose Bld-mCnc 132mg/dL Normal [id number] - [facility] Glucose Bld-mCnc 147mg/dL Normal [id number] - 199 [facility] eGFRcr SerPlBld CKD-EPI 2020 54mL/min/1.73m2 Below low normal [id number] - [facility] Chloride SerPl-sCnc 105mmol/L Normal [id number] 98 - 107 [facility] CO2 SerPl-sCnc 23mmol/L Below low normal [id number] 24 - 32 [facility] BUN/Creat SerPl 38 Above high normal [id number] 12 - 20 [facility] Creat SerPl-mCnc 1.5mg/dL Above high normal [id number] 0.7 - 1.3 [facility] Potassium SerPl-sCnc 5.7mmol/L Above high normal [id number] 3.5 - 5.1 [facility] Sodium SerPl-sCnc 134mmol/L Below low normal [id number] 135 - 145 [facility] Calcium SerPl-mCnc 9.1mg/dL Normal [id number] 8.4 - 10.2 [facility] Anion Gap SerPl-sCnc 6 Normal [id number] 5 - 14 [facility] BUN SerPl-mCnc 57mg/dL Above high normal [id number] 9 - 20 [facility] Glucose SerPl-mCnc 162mg/dL Normal [id number] 70 - 199 [facility] MCV RBC Auto 91.2FL Normal [id number] 78 - 100 [facility] MCH RBC Qn Auto 30.3pcg Normal [id number] 25 - 33 [facility] Neutrophils # Bld Auto 2.1K/mcL Normal [id number] 1.8 - 7.8 [facility] MCHC RBC Auto-mCnc 33.2g/dL Normal [id number] 32 - 36 [facility] Basophils # Bld Auto 0K/mcL Normal [id number] 0 - 0.2 [facility] Monocytes/leuk NFr Bld Auto 14.9% Above high normal [id number] 2 - 12 [facility] Lymphocytes/leuk NFr Bld Auto 14% Below low normal [id number] 20 - 48 [facility] Eosinophil # Bld Auto 0K/mcL Normal [id number] 0 - 0.5 [facility] WBC # Bld Auto 3K/mcL Below low normal [id number] 4 - 1 0.5 [facility] Platelet # Bld Auto 95K/mcL Below low normal [id number] 150 - 450 [facility] Hgb Bld-mCnc 7.4g/dL Below low normal [id number] 13.5 - 18 [facility] PMV Bld Auto 8.7FL Normal [id number] 7.4 - 11.4 [facility] Basophils/leuk NFr Bld Auto 0.2% Normal [id number] 0 - 2 [facility] Neutrophils/leuk NFr Bld Auto 70.1% Normal [id number] 44 - 74 [facility] RDW RBC Auto-Rto 15.6% Normal [id number] 12.1 - 17.7 [facility] RBC # Bld Auto 2.44M/mcL Below low normal [id number] 4.7 - 6 [facility] Lymphocytes # Bld Auto 0.4K/mcL Below low normal [id number] 1 - 3.2 [facility] Monocytes # Bld Auto 0.4K/mcL Normal [id number] 0 - 0.8 [facility] Hct VFr Bld Auto 22.3% Below low normal [id number] 40 - 54 [facility] Eosinophil/leuk NFr Bld Auto 0.8% Normal [id number] 0 - 6 [facility] Glucose Bld-mCnc 152mg/dL Normal [id number] 70 - 199 [facility] Glucose Bld-mCnc 174mg/dL Normal [id number] 70 - 199 [facility] Glucose Bld-mCnc 140mg/dL Normal [id number] 70 - 199 [facility] Glucose Bld-mCnc 230mg/dL Above high normal [id number] 70 - 199 [facility] Glucose Bld-mCnc 196mg/dL Normal [id number] 70 - 199 [facility] Anion Gap SerPl-sCnc 6 Normal [id number] 5 - 14 [facility] CO2 SerPl-sCnc 20mmol/L Below low normal [id number] 24 - 32 [facility] Chloride SerPl-sCnc 104mmol/L Normal [id number] 98 - 107 [facility] Creat SerPl-mCnc 1.8mg/dL Above high normal [id number] 0.7 - 1.3 [facility] Potassium SerPl-sCnc 5.8mmol/L Above high normal [id number] 3.5 - 5.1 [facility] Calcium SerPl-mCnc 8.8mg/dL Normal [id number] 8.4 - 10.2 [facility] Glucose SerPl-mCnc 266mg/dL Above high normal [id number] 70 - 199 [facility] BUN/Creat SerPl 29.4 Above high normal [id number] 12 - 20 [facility] BUN SerPl-mCnc 53mg/dL Above high normal [id number] 9 - 20 [facility] Sodium SerPl-sCnc 130mmol/L Below low normal [id number] 135 - 145 [facility] eGFRcr SerPlBld CKD-EPI 2020 44mL/min/1.73m2 Below low normal [id number] - [facility] Glucose Bld-mCnc 253mg/dL Above high normal [id number] 70 - 199 [facility] Glucose Bld-mCnc 224mg/dL Above high normal [id number] 70 - 199 [facility] Glucose Bld-mCnc 194mg/dL Normal [id number] 70 - 199 [facility] Sodium SerPl-sCnc 134mmol/L Below low normal [id number] 135 - 145 [facility] Anion Gap SerPl-sCnc 9 Normal 5 - 14 [facility] CO2 SerPl-sCnc 21mmol/L Below low normal [id number] 24 - 32 [facility] Glucose SerPl-mCnc 243mg/dL Above high normal [id number] 70 - 199 [facility] Chloride SerPl-sCnc 104mmol/L Normal 98 - 107 [facility] BUN/Creat SerPl 30 Above high normal [id number] 12 - 20 [facility] BUN SerPl-mCnc 60mg/dL Above high normal [id number] 9 - 20 [facility] Potassium SerPl-sCnc 5.5mmol/L Above high normal [id number] 3.5 - 5.1 [facility] eGFRcr SerPlBld CKD-EPI 2020 38mL/min/1.73m2 Below low normal [id number] - [facility] Calcium SerPl-mCnc 9mg/dL Normal 8.4 - 10.2 [facility] Creat SerPl-mCnc 2mg/dL Above high normal [id number] 0.7 - 1.3 [facility] Glucose Bld-mCnc 300mg/dL Above high normal [id number] 70 - 199 [facility] Glucose Bld-mCnc 192mg/dL Normal 70 - 199 [facility] Creat SerPl-mCnc 1.6mg/dL Above high normal [id number] 0.7 - 1.3 [facility] Sodium SerPl-sCnc 133mmol/L Below low normal [id number] 135 - 145 [facility] BUN SerPl-mCnc 62mg/dL Above high normal [id number] 9 - 20 [facility] Chloride SerPl-sCnc 103mmol/L Normal [id number] 98 - 107 [facility] Anion Gap SerPl-sCnc 7 Normal [id number] 5 - 14 [facility] eGFRcr SerPlBld CKD-EPI 2020 50mL/min/1.73m2 Below low normal [id number] - [facility] Calcium SerPl-mCnc 9.1mg/dL Normal [id number] 8.4 - 10.2 [facility] Glucose SerPl-mCnc 162mg/dL Normal [id number] 70 - 199 [facility] Potassium SerPl-sCnc 5.7mmol/L Above high normal [id number] 3.5 - 5.1 [facility] BUN/Creat SerPl 38.8 Above high normal [id number] 12 - 20 [facility] CO2 SerPl-sCnc 23mmol/L Below low normal [id number] 24 - 32 [facility] Hct VFr Bld Auto 24.8% Below low normal [id number] 40 - 54 [facility] Hgb Bld-mCnc 8.4g/dL Below low normal [id number] 13.5 - 18 [facility] MCHC RBC Auto-mCnc 33.9g/dL Normal [id number] 32 - 36 [facility] MCH RBC Qn Auto 30.5pcg Normal [id number] 25 - 33 [facility] Basophils/leuk NFr Bld Auto 0.1% Normal [id number] 0 - 2 [facility] Monocytes/leuk NFr Bld Auto 9.5% Normal [id number] 2 - 12 [facility] Neutrophils # Bld Auto 3.6K/mcL Normal [id number] 1.8 - 7.8 [facility] PMV Bld Auto 9.3FL Normal [id number] 7.4 - 11.4 [facility] Platelet # Bld Auto 102K/mcL Below low normal [id number] 150 - 450 [facility] WBC # Bld Auto 4.3K/mcL Normal [id number] 4 - 10.5 [facility] RBC # Bld Auto 2.76M/mcL Below low normal [id number] 4.7 - 6 [facility] MCV RBC Auto 89.8FL Normal [id number] 78 - 100 [facility] RDW RBC Auto-Rto 15.9% Normal [id number] 12.1 - 17.7 [facility] Eosinophil/leuk NFr Bld Auto 0% Normal [id number] 0 - 6 [facility] Neutrophils/leuk NFr Bld Auto 84.2% Above high normal [id number] 44 - 74 [facility] Monocytes # Bld Auto 0.4K/mcL Normal [id number] 0 - 0.8 [facility] Eosinophil # Bld Auto 0K/mcL Normal [id number] 0 - 0.5 [facility] Lymphocytes/leuk NFr Bld Auto 6.2% Below low normal [id number] 20 - 48 [facility] Basophils # Bld Auto 0K/mcL Normal [id number] 0 - 0.2 [facility] Lymphocytes # Bld Auto 0.3K/mcL Below low normal [id number] 1 - 3.2 [facility] aPTT PPP 35.6sec Normal [id number] 25 - 37 [facility] Glucose Bld-mCnc 137mg/dL Normal [id number] 70 - 199 [facility] aPTT PPP 35.8sec Normal [id number] 25 - 37 [facility] Hgb Bld-mCnc 8.2g/dL Below low normal [id number] 13.5 - 18 [facility] Hct VFr Bld Auto 24.4% Below low normal [id number] 40 - 54 [facility] Hgb Bld-mCnc 9.2g/dL Below low normal [id number] 13.5 - 18 [facility] Hct VFr Bld Auto 27.2% Below low normal 40 - 54 [facility] Glucose Bld-mCnc 165mg/dL Normal [id number] 70 - 199 [facility] Glucose Bld-mCnc 110mg/dL Normal 70 - 199 [facility] Glucose Bld-mCnc 106mg/dL Normal 70 - 199 [facility] Phosphate SerPl-mCnc 4.9mg/dL Above high normal [id number] 2.5 - 4.5 [facility] Magnesium SerPl-mCnc 1.8mg/dL Normal 1.7 - 2.8 [facility] Anion Gap SerPl-sCnc 10 Normal 5 - 14 [facility] Glucose SerPl-mCnc 109mg/dL Normal 70 - 199 [facility] Potassium SerPl-sCnc 4mmol/L Normal 3.5 - 5.1 [facility] Chloride SerPl-sCnc 105mmol/L Normal 98 - 107 [facility] Creat SerPl-mCnc 2.1mg/dL Above high normal 0.7 - 1.3 [facility] Calcium SerPl-mCnc 8.6mg/dL Normal 8.4 - 10.2 [facility] BUN SerPl-mCnc 73mg/dL Above high normal [id number] 9 - 20 [facility] Sodium SerPl-sCnc 137mmol/L Normal 135 - 145 [facility] eGFRcr SerPlBld CKD-EPI 2020 36mL/min/1.73m2 Below low normal 894613465738 - [facility] CO2 SerPl-sCnc 22mmol/L Below low normal [id number] 24 - 32 [facility] BUN/Creat SerPl 34.8 Above high normal [id number] 12 - 20 [facility] PT Bld 18.1sec Above high normal [id number] 10.5 - 13.3 [facility] INR PPP 1.5 Above high normal [id number] 0.8 - 1.1 [facility] Eosinophil # Bld Auto 0.1K/mcL Normal [id number] 0 - 0.5 [facility] Hgb Bld-mCnc 7.9g/dL Below low normal [id number] 13.5 - 18 [facility] Platelet # Bld Auto 83K/mcL Below low normal [id number] 150 - 450 [facility] Lymphocytes # Bld Auto 0.6K/mcL Below low normal [id number] 1 - 3.2 [facility] MCHC RBC Auto-mCnc 33.8g/dL Normal [id number] 32 - 36 [facility] PMV Bld Auto 9FL Normal [id number] 7.4 - 11.4 [facility] WBC # Bld Auto 2.6K/mcL Below low normal [id number] 4 - 1 0.5 [facility] Neutrophils # Bld Auto 1.3K/mcL Below low normal [id number] 1.8 - 7.8 [facility] Eosinophil/leuk NFr Bld Auto 3.3% Normal [id number] 0 - 6 [facility] RBC # Bld Auto 2.59M/mcL Below low normal [id number] 4.7 - 6 [facility] RDW RBC Auto-Rto 16% Normal [id number] 12.1 - 17.7 [facility] Basophils # Bld Auto 0K/mcL Normal [id number] 0 - 0.2 [facility] Basophils/leuk NFr Bld Auto 1.3% Normal [id number] 0 - 2 [facility] Neutrophils/leuk NFr Bld Auto 52% Normal [id number] 44 - 74 [facility] Monocytes # Bld Auto 0.5K/mcL Normal [id number] 0 - 0.8 [facility] MCV RBC Auto 90FL Normal [id number] 78 - 100 [facility] RBC Qn Auto 30.4pcg Normal [id number] 25 - 33 [facility] Monocytes/leuk NFr Bld Auto 18.9% Above high normal [id number] 2 - 12 [facility] Lymphocytes/leuk NFr Bld Auto 24.5% Normal 20 - 48 [facility] Hct VFr Bld Auto 23.4% Below low normal [id number] 40 - 54 [facility] Glucose Bld-mCnc 101mg/dL Normal [id number] 70 - 199 [facility] BZE Ur Ql Scn Negative Normal [id number] - [facility] Cannabinoids Ur Ql Scn Negative Normal [id number] - [facility] PCP Ur Ql Scn Negative Normal [id number] - [facility] oxyCODONE Ur Ql Scn Negative Normal [id number] - [facility] fentaNYL Ur Ql Positive Abnormal [id number] - [facility] Benzodiaz Ur Ql Scn Negative Normal [id number] - [facility] Amphet Ur Ql Scn Negative Normal [id number] - [facility] Opiates Ur Ql Scn Negative Normal [id number] - [facility] Barbiturates Ur Ql Scn Negative Normal [id number] - [facility] Ketones Ur-mCnc Negative Normal [id number] - [facility] pH Ur 6pH Normal [id number] 5 - 8 [facility] RBC #/area UrnS HPF 1/HPF Normal [id number] 0 - 3 [facility] Hgb Ur Ql Small Abnormal [id number] - [facility] Nitrite Ur Ql Negative Normal [id number] - [facility] Leukocyte esterase Ur Ql Strip Negative Normal [id number] - [facility] WBC #/area UrnS HPF 1/HPF Normal [id number] 0 - 5 [facility] Clarity Ur Clear Normal - [facility] Glucose Ur Ql Negative Normal - [facility] Color Ur Yellow Normal - [facility] Prot Ur Strip-mCnc Negative Normal - [facility] Sp Gr Ur 1.009 Normal 1.005 - 1.03 [facility] Mucous Threads #/area UrnS HPF Present Abnormal - [facility] Squamous Epithelial, Urine 0/HPF Normal 0 - 5 [facility] Ethanol SerPl-mCnc 10mg/dL Normal [id number] 0 - 10 [facility] PMV Bld Auto 9.6FL Normal 7.4 - 11.4 [facility] RDW RBC Auto-Rto 15.8% Normal 12.1 - 17.7 [facility] RBC Auto-mCnc 33.5g/dL Normal 32 - 36 [facility] WBC # Bld Auto 3.1K/mcL Below low normal [id number] 4 - 1 0.5 [facility] Platelet # Bld Auto 79K/mcL Below low normal 150 - 450 [facility] Hct VFr Bld Auto 23.6% Below low normal 40 - 54 [facility] RBC # Bld Auto 2.59M/mcL Below low normal [id number] 4.7 - 6 [facility] RBC Qn Auto 30.6pcg Normal 25 - 33 [facility] Hgb Bld-mCnc 7.9g/dL Below low normal [id number] 13.5 - 18 [facility] MCV RBC Auto 91.2FL Normal 78 - 100 [facility] eGFR 25mL/min/1.73m2 Normal [id number] [facility] Creat Bld-mCnc 2.7mg/dL Above high normal 0 .7 - 1.3 [facility] SaO2 % BldV 67% Normal - [facility] pH BldV 7.38 Normal 7.35 - 7.45 [facility] Base excess BldV Calc-sCnc -9mmol/L Normal - [facility] pCO2 BldV 27.8mmHg Normal [id number] - [facility] HCO3 BldV-sCnc 16.4mmol/L Normal [id number] - [facility] pO2 BldV 35mmHg Normal [id number] - [facility] Potassium BldV-sCnc 4.6mmol/L Normal [id number] 3.5 - 5.1 [facility] Sodium BldV-sCnc 134mmol/L Below low normal [id number] 135 - 145 [facility] Hct VFr BldV 15% Below low normal [id number] 40 - 54 [facility] pO2 BldV 203mmHg Normal [id number] [facility] Base excess BldV Calc-sCnc -6.6mmol/L Normal [facility] HCO3 BldV-sCnc 19.8mmol/L Normal [facility] pH BldV 7.45pH Normal 7.35 - 7.45 [facility] SaO2 % BldV 100% Normal [id number] [facility] pCO2 BldV 22mmHg Normal [id number] [facility] Rh Bld Positive Normal [facility] Bld gp Ab Scn SerPl Ql Negative Normal [facility] ABO Group Bld A Normal [facility] Procalcitonin SerPl-mCnc 1.87ng/mL Above high normal - [facility] Troponin I SerPl HS-mCnc 25ng/L Above high normal 0 - 20 [facility] Ethanol SerPl-mCnc 10mg/dL Normal 0 - 10 [facility] Phosphate SerPl-mCnc 4.7mg/dL Above high normal 2.5 - 4.5 [facility] Magnesium SerPl-mCnc 1.7mg/dL Normal 1.7 - 2.8 [facility] Prot SerPl-mCnc 4.8g/dL Below low normal [id number] 6 .4 - 8.5 [facility] BUN/Creat SerPl 32.3 Above high normal [id number] 12 - 20 [facility] eGFRcr SerPlBld CKD-EPI 2020 28mL/min/1.73m2 Below low normal [id number] - [facility] ALT SerPl-cCnc 14unit/L Normal 7 - [address] CT _[facility] Bilirub SerPl-mCnc 1.2mg/dL Above high normal [id number] 0.3 - 1 [facility] CO2 SerPl-sCnc 18mmol/L Below low normal 24 - 32 [facility] Potassium SerPl-sCnc 4.6mmol/L Normal 3.5 - 5.1 [facility] ALP SerPl-cCnc 114unit/L Above high normal 34 - 104 [facility] Calcium SerPl-mCnc 7.5mg/dL Below low normal [id number] 9 8.4 - 10.2 [facility] AST SerPl-cCnc 22unit/L Normal 5 - 40 CT _[facility] Glucose SerPl-mCnc 103mg/dL Normal 70 - 199 [facility] Anion Gap SerPl-sCnc 9 Normal 5 - 14 [facility] Creat SerPl-mCnc 2.6mg/dL Above high normal 0.7 - 1.3 [facility] Albumin SerPl-mCnc 3g/dL Below low normal 3 .5 - 5 [facility] Sodium SerPl-sCnc 133mmol/L Below low normal 135 - 145 [facility] BUN SerPl-mCnc 84mg/dL Above high normal 9 - 20 [facility] Chloride SerPl-sCnc 106mmol/L Normal 98 - 107 [facility] RBC # Bld Auto 1.39M/mcL Below low normal 4.7 - 6 [facility] Eosinophil/leuk NFr Bld Auto 2.2% Normal [id number] 0 - 6 [facility] MCH RBC Qn Auto 31.1pcg Normal [id number] 25 - 33 C T_[facility] Monocytes/leuk NFr Bld Auto 21.3% Above high normal [id number] 2 - 12 [facility] MCV RBC Auto 93.3FL Normal [id number] 78 - 100 [facility] Platelet # Bld Auto 75K/mcL Below low normal [id number] 150 - 450 [facility] Eosinophil # Bld Auto 0.1K/mcL Normal [id number] 0 - 0.5 [facility] Hgb Bld-mCnc 4.3g/dL Critically low [id number] 13.5 - 18 [facility] Hct VFr Bld Auto 13% Below low normal [id number] 40 - 54 [facility] Monocytes # Bld Auto 0.5K/mcL Normal [id number] 0 - 0.8 [facility] MCHC RBC Auto-mCnc 33.3g/dL Normal [id number] 32 - 36 [facility] Basophils/leuk NFr Bld Auto 0.6% Normal [id number] 0 - 2 [facility] Lymphocytes # Bld Auto 0.4K/mcL Below low normal [id number] 1 - 3.2 [facility] RDW RBC Auto-Rto 17.1% Normal [id number] 12.1 - 17.7 [facility] Basophils # Bld Auto 0K/mcL Normal [id number] 0 - 0.2 [facility] Neutrophils # Bld Auto 1.5K/mcL Below low normal [id number] 1.8 - 7.8 [facility] Lymphocytes/leuk NFr Bld Auto 15.6% Below low normal [id number] 20 - 48 [facility] Neutrophils/leuk NFr Bld Auto 60.3% Normal [id number] 44 - 74 [facility] WBC # Bld Auto 2.5K/mcL Below low normal [id number] 4 - 1 0.5 [facility] PMV Bld Auto 9.7FL Normal [id number] 7.4 - 11.4 [facility] APAP SerPl-mCnc 12.2mcg/mL Normal [id number] 10 - 30 [facility] PT Bld 22.8sec Above high normal [id number] 10.5 - 13.3 [facility] INR PPP 1.9 Above high normal [id number] 0.8 - 1.1 [facility] aPTT PPP 35sec Normal 25 - 37 [facility] LACTIC ACID 1.4mmol/L Normal 0.5 - 2.2 [facility] Rh Bld Positive Normal [facility] ABO Group Bld A Normal CT_ [facility] Bld gp Ab Scn SerPl Ql Negative Normal [facility] Basophils # Bld Auto 0.04K/mcL Normal [id number] 0 - 0.2 [facility] Neutrophils/leuk NFr Bld Auto 68% Normal [id number] 44 - 74 [facility] Monocytes # Bld Auto 0.38K/mcL Normal [id number] 0 - 0.8 [facility] Eosinophil/leuk NFr Bld Auto 5.8% Normal [id number] 0 - 6 [facility] Lymphocytes # Bld Auto 0.7K/mcL Below low normal [id number] 1 - 3.2 [facility] Hgb Bld-mCnc 9.6g/dL Below low normal [id number] 13.5 - 18 [facility] Basophils/leuk NFr Bld Auto 0.9% Normal [id number] 0 - 2 [facility] RBC # Bld Auto 3.3M/mcL Below low normal [id number] 4.7 - 6 [facility] Eosinophil # Bld Auto 0.25K/mcL Normal [id number] 0 - 0.5 [facility] MCHC RBC Auto-mCnc 31.6g/dL Below low normal [id number] 3 2 - 36 [facility] Lymphocytes/leuk NFr Bld Auto 16.3% Below low normal [id number] 20 - 48 [facility] MCV RBC Auto 92.1FL Normal [id number] 78 - 100 [facility] Neutrophils # Bld Auto 2.92K/mcL Normal [id number] 1.8 - 7.8 [facility] Platelet # Bld Auto 79K/mcL Below low normal [id number] 150 - 450 [facility] WBC # Bld Auto 4.3K/mcL Normal [id number] 4 - 10.5 CT _[facility] MCH RBC Qn Auto 29.1pcg Normal [id number] 25 - 33 C T_[facility] Monocytes/leuk NFr Bld Auto 8.8% Normal [id number] 2 - 12 [facility] PMV Bld Auto 10.6FL Normal [id number] 7.4 - 11.4 [facility] Hct VFr Bld Auto 30.4% Below low normal [id number] 40 - 54 [facility] RDW RBC Auto-Rto 14% Normal [id number] 12.1 - 17.7 [facility] Bld gp Ab Scn SerPl Ql Negative Normal [id number] [facility] Rh Bld Positive Normal [id number] [facility] ABO Group Bld A Normal [id number] CT_ [facility] Eosinophil # Bld Auto 0.37K/mcL Normal [id number] 0 - 0.5 [facility] MCV RBC Auto 91.7FL Normal [id number] 78 - 100 [facility] Neutrophils/leuk NFr Bld Auto 59.7% Normal [id number] 44 - 74 [facility] WBC # Bld Auto 5.2K/mcL Normal [id number] 4 - 10.5 CT _[facility] Platelet # Bld Auto 96K/mcL Below low normal [id number] 150 - 450 [facility] Hgb Bld-mCnc 11.4g/dL Below low normal [id number] 13.5 - 18 [facility] Lymphocytes # Bld Auto 1.04K/mcL Normal [id number] 1 - 3.2 [facility] PMV Bld Auto 9.6FL Normal [id number] 7.4 - 11.4 [facility] Neutrophils # Bld Auto 3.08K/mcL Normal [id number] 1.8 - 7.8 [facility] Monocytes # Bld Auto 0.57K/mcL Normal [id number] 0 - 0.8 [facility] RBC # Bld Auto 3.85M/mcL Below low normal [id number] 4.7 - 6 [facility] Lymphocytes/leuk NFr Bld Auto 20.2% Normal [id number] 20 - 48 [facility] Monocytes/leuk NFr Bld Auto 11.1% Normal [id number] 2 - 12 [facility] MCH RBC Qn Auto 29.6pcg Normal [id number] 25 - 33 C T_[facility] RDW RBC Auto-Rto 13.6% Normal [id number] 12.1 - 17.7 [facility] Basophils # Bld Auto 0.07K/mcL Normal [id number] 0 - 0.2 [facility] Hct VFr Bld Auto 35.3% Below low normal [id number] 40 - 54 [facility] MCHC RBC Auto-mCnc 32.3g/dL Normal [id number] 32 - 36 [facility] Basophils/leuk NFr Bld Auto 1.4% Normal [id number] 0 - 2 [facility] Eosinophil/leuk NFr Bld Auto 7.2% Above high normal [id number] 0 - 6 [facility] ABO Group Bld A Normal [id number] CT_ [facility] Bld gp Ab Scn SerPl Ql Negative Normal [id number] [facility] Rh Bld Positive Normal [id number] [facility] Eosinophil/leuk NFr Bld Auto 3.7% Normal [id number] 0 - 6 [facility] Platelet # Bld Auto 90K/mcL Below low normal [id number] 150 - 450 [facility] Neutrophils/leuk NFr Bld Auto 64.8% Normal [id number] 44 - 74 [facility] WBC # Bld Auto 4.9K/mcL Normal [id number] 4 - 10.5 CT _[facility] RBC # Bld Auto 3.11M/mcL Below low normal [id number] 4.7 - 6 [facility] PMV Bld Auto 9.7FL Normal [id number] 7.4 - 11.4 [facility] Eosinophil # Bld Auto 0.18K/mcL Normal [id number] 0 - 0.5 [facility] Monocytes # Bld Auto 0.39K/mcL Normal [id number] 0 - 0.8 [facility] MCV RBC Auto 94.9FL Normal [id number] 78 - 100 [facility] Monocytes/leuk NFr Bld Auto 8% Normal [id number] 2 - 12 [facility] Basophils/leuk NFr Bld Auto 0.8% Normal [id number] 0 - 2 [facility] MCH RBC Qn Auto 29.9pcg Normal [id number] 25 - 33 C T_[facility] Hgb Bld-mCnc 9.3g/dL Below low normal [id number] 13.5 - 18 [facility] Hct VFr Bld Auto 29.5% Below low normal [id number] 40 - 54 [facility] Lymphocytes/leuk NFr Bld Auto 22.5% Normal [id number] 20 - 48 [facility] Basophils # Bld Auto 0.04K/mcL Normal [id number] 0 - 0.2 [facility] Lymphocytes # Bld Auto 1.1K/mcL Normal [id number] 1 - 3.2 [facility] Neutrophils # Bld Auto 3.16K/mcL Normal [id number] 1.8 - 7.8 [facility] MCHC RBC Auto-mCnc 31.5g/dL Below low normal [id number] 3 2 - 36 [facility] RDW RBC Auto-Rto 14.4% Normal [id number] 12.1 - 17.7 [facility] Interpretation Ur JANIS-Imp See Below Normal [facility] ABO Group Bld A Normal CT_ [facility] Bld gp Ab Scn SerPl Ql Negative Normal [facility] Rh Bld Positive Normal [facility] Lymphocytes # Bld Auto 0.78K/mcL Below low normal 1 - 3.2 [facility] Eosinophil/leuk NFr Bld Auto 5.1% Normal 0 - 6 [facility] Lymphocytes/leuk NFr Bld Auto 16.6% Below low normal 20 - 48 [facility] PMV Bld Auto 9.9FL Normal 7.4 - 11.4 [facility] Basophils # Bld Auto 0.05K/mcL Normal 0 - 0.2 [facility] Basophils/leuk NFr Bld Auto 1.1% Normal 0 - 2 [facility] Monocytes/leuk NFr Bld Auto 10.4% Normal 2 - 12 [facility] WBC # Bld Auto 4.7K/mcL Normal 4 - 10.5 CT _[facility] Platelet # Bld Auto 87K/mcL Below low normal 150 - 450 [facility] Neutrophils/leuk NFr Bld Auto 66.6% Normal 44 - 74 [facility] Hct VFr Bld Auto 30.6% Below low normal [id number] 40 - 54 [facility] Hgb Bld-mCnc 9.6g/dL Below low normal [id number] 13.5 - 18 [facility] MCH RBC Qn Auto 29.8pcg Normal 25 - 33 C T[facility] MCHC RBC Auto-mCnc 31.4g/dL Below low normal [id number] 3 2 - 36 [facility] RBC # Bld Auto 3.22M/mcL Below low normal [id number] 4.7 - 6 [facility] RDW RBC Auto-Rto 14.7% Normal 12.1 - 17.7 [facility] Eosinophil # Bld Auto 0.24K/mcL Normal [id number] 0 - 0.5 [facility] MCV RBC Auto 95FL Normal [id number] 78 - 100 [facility] Monocytes # Bld Auto 0.49K/mcL Normal 0 - 0.8 [facility] Neutrophils # Bld Auto 3.14K/mcL Normal 1.8 - 7.8 [facility] Interpretation SerPl JANIS-Imp See Below Normal [id number] [facility] M Protein SerPl Elph-mCnc 6g/dL Below low normal [id number] 6.4 - 8.2 [facility] B-Globulin MFr SerPl Elph 12.7% Normal [id number] 8.5 - 13.7 [facility] Gamma glob SerPl Elph-mCnc 1g/dL Normal [id number] 0.6 - 1.4 [facility] Alpha1 Glob MFr SerPl Elph 5% Normal [id number] 3.3 - 5.8 [facility] Alpha2 Glob SerPl Elph-mCnc 0.5g/dL Normal [id number] 0.5 - 0.9 [facility] Path Interp Bld-Imp See Below Normal [id number] [facility] Alpha1 Glob SerPl Elph-mCnc 0.3g/dL Normal [id number] 0.2 - 0.4 [facility] Albumin MFr SerPl Elph 58.1% Normal [id number] 52.9 - 66.9 [facility] Gamma glob MFr SerPl Elph 16.7% Normal [id number] 8.8 - 19.2 [facility] B-Globulin SerPl Elph-mCnc 0.8g/dL Normal [id number] 0.6 - 1 [facility] Alpha2 Glob MFr SerPl Elph 7.5% Normal [id number] 7.5 - 13.4 [facility] Albumin SerPl-mCnc 3.5g/dL Below low normal [id number] 7 3.7 - 4.9 [facility] [place] LC Free/Lambda Free Ser Neph 1.25 Normal [id number] 0.26 - 1.65 [facility] Lambda LC Free Ser Neph-mCnc 4.7mg/dL Above high normal [id number] 0.57 - 2.63 [facility] [place] LC Free Ser Neph-mCnc 5.87mg/dL Above high normal [id number] 0.33 - 1.94 [facility] ABO Group Bld A Normal [id number] [facility]_ [facility] Bld gp Ab Scn SerPl Ql Negative Normal [facility] Rh Bld Positive Normal [facility] IgM SerPl-mCnc 300mg/dL Above high normal [id number] 45 - 281 [facility] IgA SerPl-mCnc 282mg/dL Normal [id number] 66 - 433 CT _[facility] IgG SerPl-mCnc 934mg/dL Normal [id number] 635 - 1741 [facility] Monocytes # Bld Auto 0.3K/mcL Normal [id number] 0 - 0.8 [facility] Neutrophils # Bld Auto 1.7K/mcL Below low normal [id number] 1.8 - 7.8 [facility] Hgb Bld-mCnc 8.9g/dL Below low normal [id number] 13.5 - 18 [facility] Basophils/leuk NFr Bld Auto 0.7% Normal [id number] 0 - 2 [facility] Neutrophils/leuk NFr Bld Auto 63.5% Normal [id number] 44 - 74 [facility] Lymphocytes # Bld Auto 0.59K/mcL Below low normal [id number] 1 - 3.2 [facility] PMV Bld Auto 10.7FL Normal [id number] 7.4 - 11.4 [facility] RDW RBC Auto-Rto 16.3% Normal [id number] 12.1 - 17.7 [facility] RBC # Bld Auto 2.96M/mcL Below low normal [id number] 4.7 - 6 [facility] MCV RBC Auto 97.6FL Normal [id number] 78 - 100 [facility] Monocytes/leuk NFr Bld Auto 11.2% Normal [id number] 2 - 12 [facility] MCHC RBC Auto-mCnc 30.8g/dL Below low normal [id number] 3 2 - 36 [facility] Hct VFr Bld Auto 28.9% Below low normal [id number] 40 - 54 [facility] Lymphocytes/leuk NFr Bld Auto 22% Normal [id number] 20 - 48 [facility] Eosinophil/leuk NFr Bld Auto 2.2% Normal [id number] 0 - 6 [facility] MCH RBC Qn Auto 30.1pcg Normal [id number] 25 - 33 C [facility] Basophils # Bld Auto 0.03K/mcL Normal [id number] 0 - 0.2 [facility] Platelet # Bld Auto 91K/mcL Below low normal [id number] 150 - 450 [facility] Eosinophil # Bld Auto 0.06K/mcL Normal [id number] 0 - 0.5 [facility] WBC # Bld Auto 2.7K/mcL Below low normal [id number] 4 - 1 0.5 [facility] Vit B12 SerPl-mCnc 1245pcg/mL Above high normal [id number] 38 180 - 914 [facility] Folate SerPl-mCnc 13.2ng/ml Normal [id number] - [facility] Ferritin SerPl-mCnc 20ng/mL Normal [id number] 20 - 250 [facility] TIBC SerPl-mCnc 421mcg/dL Normal [id number] 250 - 450 [facility] Iron Satn MFr SerPl 16% Below low normal [id number] 20 - 45 [facility] Iron SerPl-mCnc 67mcg/dL Normal [id number] 49 - 181 C [facility] UIBC SerPl-mCnc 354mcg/dL Normal [id number] 155 - 355 [facility] Eosinophil/leuk NFr Bld Auto 3% Normal [id number] 0 - 6 [facility] Basophils # Bld Auto 0.03K/mcL Normal 0 - 0.2 [facility] RBC # Bld Auto 3.06M/mcL Below low normal [id number] 4.7 - 6 [facility] MCV RBC Auto 95.8FL Normal 78 - 100 [facility] RDW RBC Auto-Rto 17.4% Normal 12.1 - 17.7 [facility] Platelet # Bld Auto 89K/mcL Below low normal 150 - 450 [facility] WBC # Bld Auto 3.7K/mcL Below low normal 4 - 1 0.5 [facility] Lymphocytes # Bld Auto 0.49K/mcL Below low normal [id number] 1 - 3.2 [facility] Neutrophils # Bld Auto 2.58K/mcL Normal 1.8 - 7.8 [facility] Basophils/leuk NFr Bld Auto 0.8% Normal 0 - 2 [facility] Monocytes # Bld Auto 0.48K/mcL Normal 0 - 0.8 [facility] Eosinophil # Bld Auto 0.11K/mcL Normal 0 - 0.5 [facility] Neutrophils/leuk NFr Bld Auto 69.9% Normal 44 - 74 [facility] Lymphocytes/leuk NFr Bld Auto 13.3% Below low normal 20 - 48 [facility] MCH RBC Qn Auto 29.7pcg Normal 25 - 33 C [facility] Hgb Bld-mCnc 9.1g/dL Below low normal 13.5 - 18 [facility] MCHC RBC Auto-mCnc 31.1g/dL Below low normal 3 2 - 36 [facility] PMV Bld Auto 10.1FL Normal 7.4 - 11.4 [facility] Monocytes/leuk NFr Bld Auto 13% Above high normal 2 - 12 [facility] Hct VFr Bld Auto 29.3% Below low normal 40 - 54 [facility] ANION GAP SERPL SCNC 9mmol/L Normal 5 - 14 [facility] HCO3 SER SCNC 24mmol/L Normal 24 - 32 [facility] GLUCOSE P FAST SERPL MCNC 110mg/dL Above high normal 70 - 99 [facility] CALCIUM SERPL MCNC 9.2mg/dL Normal 8.4 - 10.2 [facility] CHLORIDE SERPL SCNC 103mmol/L Normal 98 - 107 [facility] CREAT SERPL MCNC 1.3mg/dL Normal 0.7 - 1.3 [facility] Glomerular filtration rate/1.73 sq M. predicted 65 Normal 60 - [facility] BUN SERPL MCNC 15mg/dL Normal 9 - 20 [facility] POTASSIUM SERPL SCNC 4.7mmol/L Normal 3.5 - 5.1 [facility] SODIUM SERPL SCNC 136mmol/L Normal 135 - 145 [facility] MCHC RBC AUTO MCNC 30.9g/dL Below low normal 3 2 - 36 [facility] EOSINOPHIL NFR BLD AUTO 3% Normal 0 - 6 [facility] NEUTROPHILS NO. BLD AUTO 3.5K/uL Normal 1.8 - 7.8 [facility] EOSINOPHIL NO. BLD AUTO 0.1K/uL Normal 0 - 0.5 [facility] BASOPHILS IN BLOOD BY AUTOMATED COUNT 0K/uL Normal 0 - 0.2 [facility] MCH RBC QN AUTO 28.6pg Normal [id number] 25 - 33 C [facility] WBC NO. BLD AUTO 4.6K/uL Normal [id number] 4 - 10.5 [facility] MCV RBC AUTO 92.6fL Normal 78 - 100 [facility] IMM[facility] GRANULOCYTE, PERCENT 0.2% Normal 0 - 1 [facility] IMMATURE GRANULOCYTE, ABSOLUTE 0.01k/uL Normal [id number] - 0.1 [facility] HGB BLD MCNC 9.3g/dL Below low normal 13.5 - [facility] LYMPHOCYTES NO. BLD AUTO 0.5K/uL Below low normal 1 - 3.2 [facility] MONOCYTES NFR BLD AUTO 8.9% Normal 2 - 12 [facility] HCT VFR BLD AUTO 30.1% Below low normal 40 - 54 [facility] LYMPHOCYTES NFR BLD AUTO 10.8% Below low normal 20 - 48 [facility] RDW RBC AUTO RTO 18.1% Above high normal 12.1 - 17.7 [facility] BASOPHILS NFR BLD AUTO 0.9% Normal 0 - 2 [facility] NEUTROPHILS NFR BLD AUTO 76.2% Above high normal 44 - 74 [facility] PMV BLD AUTO 10.8fL Normal 7.4 - 11.4 [facility] MONOCYTES NO. BLD AUTO 0.4K/uL Normal 0 - 0.8 [facility] PLATELET NO. BLD AUTO 120K/uL Below low normal [id number] 150 - 450 [facility] RBC NO. BLD AUTO 3.25M/uL Below low normal 4.7 - 6 [facility] ABO+RH GP BLD Normal [id number] [facility] BLOOD BANK CMNT PATIENT-IMP Normal [id number] [facility] BLD GP AB SCN SERPL QL Normal [id number] [facility] BASOPHILS NFR BLD AUTO 0.7% Normal 0 - 2 [facility] NEUTROPHILS NFR BLD AUTO 72.6% Normal 44 - 74 [facility] NEUTROPHILS NO. BLD AUTO 3.1K/uL Normal 1.8 - 7.8 [facility] IMMATURE GRANULOCYTE, ABSOLUTE 0.01k/uL Normal [id number] - 0.1 [facility] HCT VFR BLD AUTO 27.1% Below low normal 40 - 54 [facility] PMV BLD AUTO 9.6fL Normal 7.4 - 11.4 [facility] WBC NO. BLD AUTO 4.3K/uL Normal 4 - 10.5 [facility] BASOPHILS IN BLOOD BY AUTOMATED COUNT 0K/uL Normal 0 - 0.2 [facility] MCV RBC AUTO 90.9fL Normal 78 - 100 [facility] IMMATURE GRANULOCYTE, PERCENT 0.2% Normal 0 - 1 [facility] RBC NO. BLD AUTO 2.98M/uL Below low normal 4.7 - 6 [facility] MONOCYTES NFR BLD AUTO 9.7% Normal 2 - 12 [facility] HGB BLD MCNC 8.2g/dL Below low normal 13.5 - 18 [facility] LYMPHOCYTES NFR BLD AUTO 12% Below low normal 20 - 48 [facility] MONOCYTES NO. BLD AUTO 0.4K/uL Normal 0 - 0.8 [facility] EOSINOPHIL NO. BLD AUTO 0.2K/uL Normal 0 - 0.5 [facility] EOSINOPHIL NFR BLD AUTO 4.8% Normal 0 - 6 [facility] PLATELET NO. BLD AUTO 133K/uL Below low normal 150 - 450 [facility] MCHC RBC AUTO MCNC 30.3g/dL Below low normal 3 2 - 36 [facility] MCH RBC QN AUTO 27.5pg Normal 25 - 33 [facility] RDW RBC AUTO RTO 16.8% Normal 12.1 - 17.7 [facility] LYMPHOCYTES NO. BLD AUTO 0.5K/uL Below low normal 1 - 3.2 [facility] BLD GP AB SCN SERPL QL Normal [facility] BLOOD BANK CMNT PATIENT-IMP Normal [facility] ABO+RH GP BLD Normal [facility] TRANS NUM UNITS PACKED RBC Normal [id number] [facility] MAGNESIUM SERPL MCNC 1.4mg/dL Below low normal [id number] 1.7 - 2.8 [facility] EOSINOPHIL NO. BLD AUTO 0.1K/uL Normal [id number] 0 - 0.5 [facility] WBC NO. BLD AUTO 3.9K/uL Below low normal [id number] 4 - 10.5 [facility] IMMATURE GRANULOCYTE, ABSOLUTE 0.01k/uL Normal [id number] - 0.1 [facility] MCH RBC QN AUTO 29.9pg Normal [id number] 25 - 33 [facility] BASOPHILS IN BLOOD BY AUTOMATED COUNT 0K/uL Normal [id number] 0 - 0.2 [facility] RBC NO. BLD AUTO 2.31M/uL Below low normal [id number] 4.7 - 6 [facility] LYMPHOCYTES NO. BLD AUTO 0.5K/uL Below low normal [id number] 1 - 3.2 [facility] NEUTROPHILS NO. BLD AUTO 2.8K/uL Normal [id number] 1.8 - 7.8 [facility] NEUTROPHILS NFR BLD AUTO 71.3% Normal [id number] 44 - 74 [facility] PLATELET NO. BLD AUTO 91K/uL Below low normal [id number] 150 - 450 [facility] MONOCYTES NO. BLD AUTO 0.5K/uL Normal [id number] 0 - 0.8 [facility] BASOPHILS NFR BLD AUTO 1% Normal [id number] 0 - 2 [facility] IMMATURE GRANULOCYTE, PERCENT 0.3% Normal [id number] 0 - 1 [facility] HGB BLD MCNC 6.9g/dL Below low normal [id number] 13.5 - 18 [facility] PMV BLD AUTO 10fL Normal [id number] 7.4 - 11.4 [facility] MCV RBC AUTO 94.8fL Normal [id number] 78 - [facility] LYMP[facility] NFR BLD AUTO 11.8% Below low normal [id number] 20 - 48 [facility] MONOCYTES NFR BLD AUTO 12.3% Above high normal [id number] 2 - 12 [facility] HCT VFR BLD AUTO 21.9% Below low normal [id number] 40 - 54 [facility] EOSINOPHIL NFR BLD AUTO 3.3% Normal [id number] 0 - 6 [facility] RDW RBC AUTO RTO 19.5% Above high normal [id number] 12.1 - 17.7 [facility] MCHC RBC AUTO MCNC 31.5g/dL Below low normal [id number] 3 2 - 36 [facility] BLD PROD DISPOSITION BPU Normal [id number] [facility] BLD PROD TYP BPU Normal [id number] [facility] VIRA XM SERPL-IMP Normal [id number] [facility] BPU ID [id number] Normal [id number] [facility] TRANSFUSION STATUS PATIENT QL Normal [id number] [facility] E CODE =<[id number] Normal [id number] [facility] H OTHER BLD PROD BPU 0 Normal [id number] [facility] BLD GP AB SCN SERPL QL Normal [id number] [facility] ABO+RH GP BLD Normal [id number] [facility] BLOOD BANK CMNT PATIENT-IMP Normal [id number] [facility] URATE SERPL MCNC 7.8mg/dL Normal [id number] 3.5 - 8.5 [facility] HCO3 SER SCNC 22mmol/L Below low normal [id number] 24 - 3 2 [facility] POTASSIUM SERPL SCNC 3.7mmol/L Normal [id number] 3.5 - 5.1 [facility] CHLORIDE SERPL SCNC 103mmol/L Normal [id number] 98 - 107 [facility] CALCIUM SERPL MCNC 8.7mg/dL Normal [id number] 8.4 - 10.2 [facility] Glomerular filtration rate/1.73 sq M. predicted 79 Normal [id number] 60 - [facility] ANION GAP SERPL SCNC 8mmol/L Normal [id number] 5 - 14 [facility] CREAT SERPL MCNC 1.1mg/dL Normal [id number] 0.7 - 1.3 [facility] BUN SERPL MCNC 16mg/dL Normal [id number] 9 - 20 [facility] GLUCOSE P FAST SERPL MCNC 114mg/dL Above high normal [id number] 70 - 99 [facility] SODIUM SERPL SCNC 133mmol/L Below low normal [id number] 135 - 145 [facility] ABO+RH GP BLD Normal [id number] [facility] BLOOD BANK CMNT PATIENT-IMP Normal [id number] [facility] BLD GP AB SCN SERPL QL Normal [id number] [facility] TRANS NUM UNITS PACKED RBC Normal [id number] [facility] BLOOD BANK [facility] PATIENT-IMP Normal [id number] [facility] ABO+RH GP BLD Normal [id number] [facility] BLD GP AB SCN SERPL QL Normal [id number] [facility] BLD PROD DISPOSITION BPU Normal [id number] [facility] VIRA XM SERPL-IMP Normal [id number] [facility] E CODE =<[id number] Normal [id number] [facility] TRANSFUSION STATUS PATIENT QL Normal [id number] [facility] BLD PROD TYP BPU Normal [id number] [facility] OTHER BLD PROD BPU 0 Normal [id number] [facility] BPU ID [id number] Normal [id number] [facility] ABO+RH GP BLD Normal [id number] [facility] BLD GP AB SCN SERPL QL Normal [id number] [facility] BLOOD BANK NT PATIENT-IMP Normal [id number] [facility] PLATELET NO. BLD AUTO 84K/uL Below low normal [id number] 150 - 450 [facility] MCV RBC AUTO 94.8fL Normal [id number] 78 - 100 [facility] LYMPHOCYTES NO. BLD AUTO 0.8K/uL Below low normal [id number] 1 - 3.2 [facility] NEUTROPHILS NFR BLD AUTO 63.6% Normal [id number] 44 - 74 [facility] IMMATURE GRANULOCYTE, ABSOLUTE 0.01k/uL Normal [id number] - 0.1 [facility] HCT VFR BLD AUTO 21.7% Below low normal [id number] 40 - 54 [facility] BASOPHILS NFR BLD AUTO 0.5% Normal [id number] 0 - 2 [facility] RDW RBC AUTO RTO 20.4% Above high normal [id number] 12.1 - 17.7 [facility] M[facility]C RBC AUTO MCNC 30.4g/dL Below low normal [id number] 3 2 - 36 [facility] EOSINOPHIL NO. BLD AUTO 0.3K/uL Normal [id number] 0 - 0.5 [facility] EOSINOPHIL NFR BLD AUTO 7.8% Above high normal [id number] 0 - 6 [facility] IMMATURE GRANULOCYTE, PERCENT 0.3% Normal [id number] 0 - 1 [facility] BASOPHILS IN BLOOD BY AUTOMATED COUNT 0K/uL Normal [id number] 0 - 0.2 [facility] MCH RBC QN AUTO 28.8pg Normal [id number] 25 - 33 [facility] MONOCYTES NO. BLD AUTO 0.3K/uL Normal [id number] 0 - 0.8 [facility] RBC NO. BLD AUTO 2.29M/uL Below low normal [id number] 4.7 - 6 [facility] NEUTROPHILS NO. BLD AUTO 2.5K/uL Normal [id number] 1.8 - 7.8 [facility] MONOCYTES NFR BLD AUTO 8.1% Normal [id number] 2 - 12 [facility] LYMPHOCYTES NFR BLD AUTO 19.7% Below low normal [id number] 20 - 48 [facility] PMV BLD AUTO 9.9fL Normal [id number] 7.4 - 11.4 [facility] WBC NO. BLD AUTO 4K/uL Normal [id number] 4 - 10.5 [facility] HGB BLD MCNC 6.6g/dL Below low normal [id number] 13.5 - 18 [facility] MAGNESIUM SERPL MCNC 1.4mg/dL Below low normal [id number] 1.7 - 2.8 [facility] HCO3 SER SCNC 22mmol/L Below low normal [id number] 24 - 3 2 [facility] BUN SERPL MCNC 23mg/dL Above high normal [id number] 9 - 20 [facility] CALCIUM SERPL MCNC 9.1mg/dL Normal [id number] 8.4 - 10.2 [facility] Glomerular filtration rate/1.73 sq M. predicted 79 Normal [id number] 60 - [facility] SODIUM SERPL SCNC 137mmol/L Normal [id number] 135 - 145 [facility] CREAT SERPL MCNC 1.1mg/dL Normal [id number] 0.7 - 1.3 [facility] GLUCOSE P FAST SERPL MCNC 137mg/dL Above high normal [id number] 70 - 99 [facility] CHLORIDE SERPL SCNC 104mmol/L Normal [id number] 98 - 107 [facility] ANION GAP SERPL SCNC 11mmol/L Normal [id number] 5 - 14 [facility] POTASSIUM SERPL SCNC 4.7mmol/L Normal [id number] 3.5 - 5.1 [facility] ABO+RH GP BLD Normal [id number] CTT [facility] BLD GP AB SCN SERPL QL Normal [id number] [facility] BLOOD BANK CMNT PATIENT-IMP Normal [id number] [facility] MONOCYTES NO. BLD AUTO 0.5K/uL Normal [id number] 0 - 0.8 [facility] LYMPHOCYTES NFR BLD AUTO 13.5% Below low normal [id number] 20 - 48 [facility] BASOPHILS NFR BLD AUTO 0.8% Normal [id number] 0 - 2 [facility] HGB BLD MCNC 8.4g/dL Below low normal [id number] 13.5 - 18 [facility] MCHC RBC AUTO MCNC 31.6g/dL Below low normal [id number] 3 2 - 36 [facility] WBC NO. BLD AUTO 4.9K/uL Normal [id number] 4 - 10.5 [facility] NEUTROPHILS NFR BLD AUTO 70% Normal [id number] 44 - 74 [facility] EOSINOPHIL NFR BLD AUTO 6.1% Above high normal [id number] 0 - 6 [facility] PMV BLD AUTO 9.3fL Normal [id number] 7.4 - 11.4 [facility] IMMATURE GRANULOCYTE, PERCENT 0.2% Normal [id number] 0 - 1 [facility] PLATELET NO. BLD AUTO 138K/uL Below low normal [id number] 150 - 450 [facility] LYMPHOCYTES NO. BLD AUTO 0.7K/uL Below low normal [id number] 1 - 3.2 [facility] MONOCYTES NFR BLD AUTO 9.4% Normal [id number] 2 - 12 [facility] RDW RBC AUTO RTO 16.6% Normal [id number] 12.1 - 17.7 [facility] MCH RBC QN AUTO 27.8pg Normal [id number] 25 - 33 C [facility] HCT VFR BLD AUTO 26.6% Below low normal [id number] 40 - 54 [facility] IMMATURE GRANULOCYTE, ABSOLUTE 0.01k/uL Normal [id number] - 0.1 [facility] NEUTROPHILS NO. BLD AUTO 3.4K/uL Normal [id number] 1.8 - 7.8 [facility] MCV RBC AUTO 88.1fL Normal [id number] 78 - [facility]OM[facility] COUNT 0K/uL Normal [id number] 0 - 0.2 [facility] RBC NO. BLD AUTO 3.02M/uL Below low normal [id number] 4.7 - 6 [facility] EOSINOPHIL NO. BLD AUTO 0.3K/uL Normal [id number] 0 - 0.5 [facility] HCO3 SER SCNC 24mmol/L Normal [id number] 24 - 32 [facility] CREAT SERPL MCNC 2mg/dL Above high normal [id number] 0.7 - 1.3 [facility] Glomerular filtration rate/1.73 sq M. predicted 39 Below low normal [id number] 60 - [facility] ANION GAP SERPL SCNC 13mmol/L Normal [id number] 5 - 14 [facility] CHLORIDE SERPL SCNC 97mmol/L Below low normal [id number] 98 - 107 [facility] BUN SERPL MCNC 47mg/dL Above high normal [id number] 9 - 20 [facility] POTASSIUM SERPL SCNC 4.2mmol/L Normal [id number] 3.5 - 5.1 [facility] SODIUM SERPL SCNC 134mmol/L Below low normal [id number] 135 - 145 [facility] CALCIUM SERPL MCNC 9.7mg/dL Normal [id number] 8.4 - 10.2 [facility] GLUCOSE SERPL MCNC 208mg/dL Above high normal [id number] 70 - 199 [facility] MAGNESIUM SERPL MCNC 1.5mg/dL Below low normal [id number] 1.7 - 2.8 [facility] SODIUM SERPL SCNC 131mmol/L Below low normal [id number] 135 - 145 [facility] BUN SERPL MCNC 48mg/dL Above high normal [id number] 9 - 20 [facility] ANION GAP SERPL SCNC 15mmol/L Above high normal [id number] 5 - 14 [facility] CHLORIDE SERPL SCNC 95mmol/L Below low normal [id number] 98 - 107 [facility] Glomerular filtration rate/1.73 sq M. predicted 30 Below low normal [id number] 60 - [facility] HCO3 SER SCNC 21mmol/L Below low normal [id number] 24 - 3 2 [facility] POTASSIUM SERPL SCNC 4.4mmol/L Normal [id number] 3.5 - 5.1 [facility] GLUCOSE P FAST SERPL MCNC 231mg/dL Above high normal [id number] 70 - 99 [facility] CALCIUM SERPL MCNC 9.4mg/dL Normal 8.4 - 10.2 [facility] CREAT SERPL MCNC 2.5mg/dL Above high normal [id number] 0.7 - 1.3 [facility] MAGNESIUM SERPL MCNC 1.2mg/dL Below low normal [id number] 1.7 - 2.8 [facility] BLOOD BANK CMNT PATIENT-IMP Normal [id number] [facility] BLD GP AB SCN SERPL QL Normal [id number] [facility] ABO+RH GP BLD Normal [id number] CTT [facility] MCH RBC QN AUTO 27.6pg Normal [id number] 25 - 33 C [facility] MONOCYTES NFR BLD AUTO 10.2% Normal [id number] 2 - 12 [facility] NEUTROPHILS NFR BLD AUTO 71.9% Normal [id number] 44 - 74 [facility] RDW RBC AUTO RTO 17.2% Normal [id number] 12.1 - 17.7 [facility] EOSINOPHIL NO. BLD AUTO 0.4K/uL Normal [id number] 0 - 0.5 [facility] BASOPHILS IN BLOOD BY AUTOMATED COUNT 0.1K/uL Normal [id number] 0 - 0.2 [facility] PLATELET NO. BLD AUTO 241K/uL Normal [id number] 150 - 450 [facility] HCT VFR BLD AUTO 30.1% Below low normal [id number] 40 - 54 [facility] LYMPHOCYTES NFR BLD AUTO 12.8% Below low normal [id number] 20 - 48 [facility] HGB BLD MCNC 9.4g/dL Below low normal [id number] 13.5 - 18 [facility] EOSINOPHIL NFR BLD AUTO 4% Normal [id number] 0 - 6 [facility] NEUTROPHILS NO. BLD AUTO 6.7K/uL Normal [id number] 1.8 - 7.8 [facility] IMMATURE GRANULOCYTE, PERCENT 0.3% Normal [id number] 0 - 1 [facility] MONOCYTES NO. BLD AUTO 1K/uL Above high normal [id number] 0 - 0.8 [facility] PMV BLD AUTO 10.3fL Normal [id number] 7.4 - 11.4 [facility] RBC NO. BLD AUTO 3.41M/uL Below low normal [id number] 4.7 - 6 [facility] IMMATURE GRANULOCYTE, ABSOLUTE 0.03k/uL Normal [id number] - 0.1 [facility] BASOPHILS NFR BLD AUTO 0.8% Normal [id number] 0 - 2 [facility] MCHC RBC AUTO MCNC 31.2g/dL Below low normal [id number] 3 2 - 36 [facility] LYMPHOCYTES NO. BLD AUTO 1.2K/uL Normal [id number] 1 - 3.2 [facility] WBC NO. BLD AUTO 9.3K/uL Normal [id number] 4 - 10.5 [facility] MCV RBC AUTO 88.3fL Normal [id number] 78 - [facility] GLUCOMTR MCNC 123mg/dL Normal [id number] 70 - 199 [facility] GLUCOSE BLDC GLUCOMTR MCNC 137mg/dL Normal [id number] 70 - 199 [facility] MAGNESIUM SERPL MCNC 1.4mg/dL Below low normal [id number] 1.7 - 2.8 [facility] CREAT SERPL MCNC 1.3mg/dL Normal [id number] 0.7 - 1.3 [facility] CALCIUM SERPL MCNC 8.6mg/dL Normal [id number] 8.4 - 10.2 [facility] SODIUM SERPL SCNC 138mmol/L Normal [id number] 135 - 145 [facility] GLUCOSE SERPL MCNC 108mg/dL Normal [id number] 70 - 199 [facility] CHLORIDE SERPL SCNC 99mmol/L Normal [id number] 98 - 107 [facility] POTASSIUM SERPL SCNC 3.8mmol/L Normal [id number] 3.5 - 5.1 [facility] HCO3 SER SCNC 27mmol/L Normal [id number] 24 - 32 CTT [facility] ANION GAP SERPL SCNC 12mmol/L Normal [id number] 5 - 14 [facility] BUN SERPL MCNC 23mg/dL Above high normal [id number] 9 - 20 [facility] Glomerular filtration rate/1.73 sq M. predicted 65 Normal [id number] 60 - [facility] WBC NO. BLD AUTO 6.5K/uL Normal [id number] 4 - 10.5 [facility] RDW RBC AUTO RTO 19.8% Above high normal [id number] 12.1 - 17.7 [facility] RBC NO. BLD AUTO 2.97M/uL Below low normal [id number] 4.7 - 6 [facility] MCH RBC QN AUTO 29.1pg Normal [id number] 25 - 33 C [facility] HGB BLD MCNC 8.6g/dL Below low normal [id number] 13.5 - 18 [facility] HCT VFR BLD AUTO 25.6% Below low normal [id number] 40 - 54 [facility] MCHC RBC AUTO MCNC 33.7g/dL Normal [id number] 32 - 36 [facility] MCV RBC AUTO 86.3fL Normal [id number] 78 - 100 [facility] PT TIME PPP 16.9sec Above high normal [id number] 10.5 - 13.3 [facility] INR PPP 1.4 Above high normal [id number] 0.8 - 1.1 [facility] GLUCOSE BLDC GLUCOMTR MCNC 133mg/dL Normal [id number] 70 - 199 [facility] GLUCOSE BLDC GLUCOMTR MCNC 140mg/dL Normal [id number] 70 - 199 [facility] GLUCOSE BLDC GLUCOMTR MCNC 113mg/dL Normal [id number] 70 - 199 [facility] SODIUM UR SCNC 107mmol/L Normal [id number] [facility] CREAT UR MCNC 25.1mg/dL Normal [id number] CTT [facility] GLUCOSE BLDC GLUCOMTR MCNC 100mg/dL Normal [id number] 70 - 199 [facility] GLUCOSE BLDC GLUCOMTR MCNC 100mg/dL Normal [id number] 70 - 199 [facility] Glomerular filtration rate/1.73 sq M. predicted 79 Normal [id number] 60 - [facility] ANION GAP SERPL SCNC 14mmol/L Normal [id number] 5 - 14 [facility] POTASSIUM SERPL SCNC 3.5mmol/L Normal [id number] 3.5 - 5.1 [facility] GLUCOSE SERPL MCNC 94mg/dL Normal 70 - 199 [facility] HCO3 SER SCNC 22mmol/L Below low normal [id number] 24 - 3 2 [facility] CALCIUM SERPL MCNC 7.8mg/dL Below low normal 6 8.4 - 10.2 [facility] SODIUM SERPL SCNC 137mmol/L Normal [id number] 135 - 145 [facility] BUN SERPL MCNC 19mg/dL Normal [id number] 9 - 20 CT [facility] CREAT SERPL MCNC 1.1mg/dL Normal [id number] 0.7 - 1.3 [facility] CHLORIDE SERPL SCNC 101mmol/L Normal [id number] 98 - 107 [facility] MAGNESIUM SERPL MCNC 1.2mg/dL Below low normal [id number] 1.7 - 2.8 [facility] GLUCOSE BLDC GLUCOMTR MCNC 137mg/dL Normal [id number] 70 - 199 [facility] GLUCOSE BLDC GLUCOMTR MCNC 116mg/dL Normal [id number] 70 - 199 [facility] GLUCOSE BLDC GLUCOMTR MCNC 142mg/dL Normal [id number] 70 - 199 [facility] GLUCOSE BLDC GLUCOMTR MCNC 100mg/dL Normal [id number] 70 - 199 [facility] RBC NO. BLD AUTO 3.02M/uL Below low normal [id number] 4.7 - 6 [facility] PLATELET NO. BLD AUTO 173K/uL Normal [id number] 150 - 450 [facility] MCV RBC AUTO 86.7fL Normal 78 - 100 [facility] RDW RBC AUTO RTO 19.8% Above high normal 12.1 - 17.7 [facility] MCHC RBC AUTO MCNC 32.8g/dL Normal 32 - 36 [facility] MCH RBC QN AUTO 28.5pg Normal 25 - 33 C [facility] HCT VFR BLD AUTO 26.2% Below low normal 40 - 54 [facility] HGB BLD MCNC 8.6g/dL Below low normal 13.5 - 18 [facility] PMV BLD AUTO 7.7fL Normal 7.4 - 11.4 [facility] WBC NO. BLD AUTO 6.3K/uL Normal 4 - 10.5 [facility] MAGNESIUM SERPL MCNC 1.2mg/dL Below low normal 1.7 - 2.8 [facility] Leukocyte esterase Ur Ql Strip.auto NEGATIVE Normal - [facility] WBC number/area UrnS Auto 0/HPF Normal 0 - 5 [facility] pH Ur Strip.auto 7 Normal 4.5 - 8 [facility] Prot Ur Ql Strip.auto NEGATIVE Normal - [facility] Clarity Ur Refract.auto CLEAR Normal [facility] Sp Gr Ur Strip.auto 1.008 Normal 1.005 - 1.03 [facility] Glucose Ur Ql Strip.auto NEGATIVE Normal - [facility] Squamous number/area UrnS Auto 2/LFP Normal 0 - 5 [facility] Mucous Threads Ur Ql Auto PRESENT Abnormal - [facility] Nitrite Ur Ql Strip.auto NEGATIVE Normal - [facility] RBC number/area UrnS Auto <1 Normal 0 - 3 [facility] Color Ur Auto YELLOW Normal CTT [facility] Ketones Ur Ql Strip.auto NEGATIVE Normal - [facility] Hgb Ur Ql Strip.auto SMALL Abnormal - [facility] SPECIMEN SOURCE XXX URINE CLEAN CATCH Normal [facility] POTASSIUM SERPL SCNC 3.5mmol/L Normal 3.5 - 5.1 [facility] GLUCOSE SERPL MCNC 92mg/dL Normal 70 - 199 [facility] BUN SERPL MCNC 19mg/dL Normal 9 - 20 [facility] CHLORIDE SERPL SCNC 98mmol/L Normal 98 - 107 [facility] HCO3 SER SCNC 25mmol/L Normal 24 - 32 CTT [facility] ANION GAP SERPL SCNC 10mmol/L Normal 5 - 14 [facility] CREAT SERPL MCNC 1.2mg/dL Normal 0.7 - 1.3 [facility] SODIUM SERPL SCNC 133mmol/L Below low normal 135 - 145 [facility] CALCIUM SERPL MCNC 8.4mg/dL Normal 8.4 - 10.2 [facility] Glomerular filtration rate/1.73 sq M. predicted 71 Normal 60 - [facility] INR PPP 1.8 Above high normal 0.8 - 1.1 [facility] PT TIME PPP 20.8sec Above high normal 10.5 - 13.3 [facility] GLUCOSE BLDC GLUCOMTR MCNC 125mg/dL Normal [id number] 70 - 199 [facility] GLUCOSE BLDC GLUCOMTR MCNC 124mg/dL Normal 70 - 199 [facility] GLUCOSE BLDC GLUCOMTR MCNC 128mg/dL Normal [id number] 70 - 199 [facility] MRSA BY PCR Not Detected Normal - CT [facility] TRANS NUM UNITS PACKED RBC Normal [id number] [facility] GLUCOSE BLDC GLUCOMTR MCNC 149mg/dL Normal 70 - 199 [facility] GLUCOSE BLDC GLUCOMTR MCNC 98mg/dL Normal 70 - 199 [facility] RDW RBC AUTO RTO 19.6% Above high normal 12.1 - 17.7 [facility] RBC NO. BLD AUTO 2.48M/uL Below low normal [id number] 4.7 - 6 [facility] PLATELET NO. BLD AUTO 129K/uL Below low normal [id number] 150 - 450 [facility] WBC NO. BLD AUTO 7.4K/uL Normal [id number] 4 - 10.5 [facility] PMV BLD AUTO 7.8fL Normal [id number] 7.4 - 11.4 [facility] MCHC RBC AUTO MCNC 33g/dL Normal [id number] 32 - 36 [facility] MCV RBC AUTO 86.7fL Normal [id number] 78 - 100 [facility] HGB BLD MCNC 7.1g/dL Below low normal [id number] 13.5 - 18 [facility] HCT VFR BLD AUTO 21.5% Below low normal [id number] 40 - 54 [facility] MCH RBC QN AUTO 28.6pg Normal [id number] 25 - 33 C [facility] GLUCOSE SERPL MCNC 98mg/dL Normal [id number] 70 - 199 [facility] ANION GAP SERPL SCNC 9mmol/L Normal [id number] 5 - 14 [facility] POTASSIUM SERPL SCNC 3.8mmol/L Normal [id number] 3.5 - 5.1 [facility] CREAT SERPL MCNC 0.9mg/dL Normal [id number] 0.7 - 1.3 [facility] BUN SERPL MCNC 18mg/dL Normal [id number] 9 - 20 [facility] CHLORIDE SERPL SCNC 99mmol/L Normal [id number] 98 - 107 [facility] Glomerular filtration rate/1.73 sq M. predicted 101 Normal [id number] 60 - [facility] SODIUM SERPL SCNC 130mmol/L Below low normal [id number] 135 - 145 [facility] HCO3 SER SCNC 22mmol/L Below low normal [id number] 24 - 3 2 [facility] CALCIUM SERPL MCNC 8.3mg/dL Below low normal [id number] 8 8.4 - 10.2 [facility] MAGNESIUM SERPL MCNC 1.7mg/dL Normal [id number] 1.7 - 2.8 [facility] Troponin I SerPl HS-mCnc 50ng/L Above high normal [id number] 0 - 20 [facility] MAGNESIUM SERPL MCNC 1.5mg/dL Below low normal [id number] 1.7 - 2.8 [facility] Troponin I SerPl HS-mCnc 56ng/L Above high normal [id number] 0 - 20 [facility] Troponin I SerPl HS-mCnc 50ng/L Above high normal [id number] 0 - 20 [facility] BLD PROD DISPOSITION BPU Normal [id number] [facility] BPU ID [id number] Normal [id number] CTT [facility] E CODE =<[id number] Normal [id number] [facility] TRANSFUSION STATUS PATIENT QL Normal [id number] [facility] BLD PROD TYP BPU Normal [id number] [facility] OTHER BLD PROD BPU 0 Normal [id number] [facility] VIRA XM SERPL-IMP Normal [id number] [facility] BLOOD BANK CMNT PATIENT-IMP Normal [id number] [facility] BLD GP AB SCN SERPL QL Normal [id number] [facility] ABO+RH GP BLD Normal [id number] CTT [facility] INR PPP 1.6 Above high normal [id number] 0.8 - 1.1 [facility] PT TIME PPP 19.3sec Above high normal [id number] 10.5 - 13.3 [facility] BNP BLD MCNC 1299pg/mL Above high normal [id number] 0 - 10 0 [facility] D DIMER DDU PPP EIA MCNC 2588ng/mLDDU Above high normal [id number] - 231 [facility] Glomerular filtration rate/1.73 sq M. predicted 89 Normal [id number] 60 - [facility] ANION GAP SERPL SCNC 13mmol/L Normal [id number] 5 - 14 [facility] CALCIUM SERPL MCNC 8.3mg/dL Below low normal [id number] 5 8.4 - 10.2 [facility] GLUCOSE SERPL MCNC 110mg/dL Normal [id number] 70 - 199 [facility] CHLORIDE SERPL SCNC 98mmol/L Normal [id number] 98 - 107 [facility] POTASSIUM SERPL SCNC 4.1mmol/L Normal [id number] 3.5 - 5.1 [facility] CREAT SERPL MCNC 1mg/dL Normal [id number] 0.7 - 1.3 [facility] SODIUM SERPL SCNC 129mmol/L Below low normal [id number] 135 - 145 [facility] HCO3 SER SCNC 18mmol/L Below low normal [id number] 24 - 3 2 [facility] BUN SERPL MCNC 18mg/dL Normal [id number] 9 - 20 [facility] BASOPHILS IN BLOOD BY AUTOMATED COUNT 0K/uL Normal [id number] 0 - 0.2 [facility] BASOPHILS NFR BLD AUTO 0.4% Normal [id number] 0 - 2 [facility] EOSINOPHIL NO. BLD AUTO 0K/uL Normal [id number] 0 - 0.5 [facility] EOSINOPHIL NFR BLD AUTO 0.5% Normal [id number] 0 - 6 [facility] MONOCYTES NO. BLD AUTO 0.8K/uL Normal [id number] 0 - 0.8 [facility] LYMPHOCYTES NO. BLD AUTO 0.3K/uL Below low normal [id number] 1 - 3.2 [facility] HCT VFR BLD AUTO 23.7% Below low normal [id number] 40 - 54 [facility] PMV BLD AUTO 8.1fL Normal [id number] 7.4 - 11.4 [facility] RDW RBC AUTO RTO 20.1% Above high normal [id number] 12.1 - 17.7 [facility] WBC NO. BLD AUTO 7.9K/uL Normal [id number] 4 - 10.5 [facility] HGB BLD MCNC 7.6g/dL Below low normal [id number] 13.5 - 18 [facility] MONOCYTES NFR BLD AUTO 10% Normal [id number] 2 - 12 [facility] RBC NO. BLD AUTO 2.72M/uL Below low normal [id number] 4.7 - 6 [facility] MCHC RBC AUTO MCNC 32.2g/dL Normal [id number] 32 - 36 [facility] LYMPHOCYTES NFR BLD AUTO 4.2% Below low normal [id number] 20 - 48 [facility] NEUTROPHILS NFR BLD AUTO 84.9% Above high normal [id number] 44 - 74 [facility] PLATELET NO. BLD AUTO 134K/uL Below low normal [id number] 150 - 450 [facility] MCH RBC QN AUTO 28.1pg Normal [id number] 25 - 33 C [facility] MCV RBC AUTO 87.1fL Normal [id number] 78 - 100 [facility] DIFFERENTIAL TYPE AUTOMATED Normal [id number] [facility] NEUTROPHILS NO. BLD AUTO 6.7K/uL Normal [id number] 1.8 - 7.8 [facility] BLD GP AB SCN SERPL QL Normal [id number] [facility] ABO+RH GP BLD Normal [id number] [facility] BLOOD B[facility] CMNT PATIENT-IMP Normal [id number] [facility] Service Cmmt XXX-Imp Leo [place] M Normal [id number] [facility] RSV RNA Nph Ql MARY+non-probe Not Detected Normal [id number] [facility] FLUAV RNA Nph Ql MARY+non-probe Not Detected Normal [id number] [facility] FLUBV RNA Nph Ql MARY+non-probe Not Detected Normal [id number] [facility] SPECIMEN SOURCE XXX NASOPHARYNGEAL Normal [id number] [facility] GLUCOSE BLDC GLUCOMTR MCNC 160mg/dL Normal [id number] 70 - 199 [facility] GLUCOSE BLDC GLUCOMTR MCNC 105mg/dL Normal [id number] 70 - 199 [facility] LYMPHOCYTES NFR BLD AUTO 6.1% Below low normal [id number] 20 - 48 [facility] LYMPHOCYTES NO. BLD AUTO 0.4K/uL Below low normal [id number] 1 - 3.2 [facility] EOSINOPHIL NFR BLD AUTO 3.3% Normal [id number] 0 - 6 [facility] MONOCYTES NFR BLD AUTO 15.4% Above high normal [id number] 2 - 12 [facility] DIFFERENTIAL TYPE AUTOMATED Normal [id number] [facility] EOSINOPHIL NO. BLD AUTO 0.2K/uL Normal [id number] 0 - 0.5 [facility] NEUTROPHILS NO. BLD AUTO 5.2K/uL Normal [id number] 1.8 - 7.8 [facility] NEUTROPHILS NFR BLD AUTO 74.7% Above high normal [id number] 44 - 74 [facility] MONOCYTES NO. BLD AUTO 1.1K/uL Above high normal [id number] 0 - 0.8 [facility] BASOPHILS IN BLOOD BY AUTOMATED COUNT 0K/uL Normal [id number] 0 - 0.2 [facility] BASOPHILS NFR BLD AUTO 0.5% Normal [id number] 0 - 2 [facility] MCV RBC AUTO 86.7fL Normal [id number] 78 - 100 [facility] PLATELET NO. BLD AUTO 95K/uL Below low normal [id number] 150 - 450 [facility] HGB BLD MCNC 7.4g/dL Below low normal [id number] 13.5 - 18 [facility] HCT VFR BLD AUTO 21.9% Below low normal [id number] 40 - 54 [facility] MCHC RBC AUTO MCNC 33.6g/dL Normal [id number] 32 - 36 [facility] PMV BLD AUTO 7.8fL Normal [id number] 7.4 - 11.4 [facility] WBC NO. BLD AUTO 7K/uL Normal [id number] 4 - 10.5 [facility] MCH RBC QN AUTO 29.1pg Normal [id number] 25 - 33 C [facility] RDW RBC AUTO RTO 20.2% Above high normal [id number] 12.1 - 17.7 [facility] RBC NO. BLD AUTO 2.53M/uL Below low normal [id number] 4.7 - 6 [facility] CALCIUM SERPL MCNC 8.1mg/dL Below low normal [id number] 4 8.4 - 10.2 [facility] CHLORIDE SERPL SCNC 99mmol/L Normal [id number] 98 - 107 [facility] Glomerular filtration rate/1.73 sq M. predicted 71 Normal [id number] 60 - [facility] CREAT SERPL MCNC 1.2mg/dL Normal [id number] 0.7 - 1.3 [facility] HCO3 SER SCNC 23mmol/L Below low normal [id number] 24 - 3 2 [facility] GLUCOSE SERPL MCNC 111mg/dL Normal [id number] 70 - 199 [facility] BUN SERPL MCNC 21mg/dL Above high normal [id number] 9 - 20 [facility] POTASSIUM SERPL SCNC 4.3mmol/L Normal [id number] 3.5 - 5.1 [facility] ANION GAP SERPL SCNC 9mmol/L Normal [id number] 5 - 14 [facility] SODIUM SERPL SCNC 131mmol/L Below low normal [id number] 135 - 145 [facility] MAGNESIUM SERPL MCNC 1.5mg/dL Below low normal [id number] 1.7 - 2.8 [facility] GLUCOSE BLDC GLUCOMTR MCNC 129mg/dL Normal [id number] 70 - 199 [facility] GLUCOSE BLDC GLUCOMTR MCNC 135mg/dL Normal [id number] 70 - 199 [facility] GLUCOSE BLDC GLUCOMTR MCNC 135mg/dL Normal [id number] 70 - 199 [facility] GLUCOSE BLDC GLUCOMTR MCNC 93mg/dL Normal [id number] 70 - 199 [facility] MAGNESIUM SERPL MCNC 2mg/dL Normal [id number] 1.7 - 2.8 [facility] ANION GAP SERPL SCNC 7mmol/L Normal [id number] 5 - 14 [facility] POTASSIUM SERPL SCNC 4.1mmol/L Normal [id number] 3.5 - 5.1 [facility] GLUCOSE SERPL MCNC 97mg/dL Normal [id number] 70 - 199 [facility] CHLORIDE SERPL SCNC 100mmol/L Normal [id number] 98 - 107 [facility] HCO3 SER SCNC 25mmol/L Normal [id number] 24 - 32 [facility] BUN SERPL MCNC 19mg/dL Normal [id number] 9 - 20 [facility] CALCIUM SERPL MCNC 7.9mg/dL Below low normal [id number] 3 8.4 - 10.2 [facility] Glomerular filtration rate/1.73 sq M. predicted 65 Normal [id number] 60 - [facility] SODIUM SERPL SCNC 132mmol/L Below low normal [id number] 135 - 145 [facility] CREAT SERPL MCNC 1.3mg/dL Normal [id number] 0.7 - 1.3 [facility] GLUCOSE BLDC GLUCOMTR MCNC 113mg/dL Normal [id number] 70 - 199 [facility] VANCOMYCIN TROUGH SERPL MCNC 22.4mcg/mL Above high normal [id number] 10 - 20 [facility] GLUCOSE BLDC GLUCOMTR MCNC 119mg/dL Normal [id number] 70 - 199 [facility] GLUCOSE BLDC GLUCOMTR MCNC 146mg/dL Normal [id number] 70 - 199 [facility] GLUCOSE BLDC GLUCOMTR MCNC 124mg/dL Normal [id number] 70 - 199 [facility] MAGNESIUM SERPL MCNC 1.6mg/dL Below low normal [id number] 1.7 - 2.8 [facility] CALCIUM SERPL MCNC 7.5mg/dL Below low normal [id number] 0 8.4 - 10.2 [facility] CHLORIDE SERPL SCNC 98mmol/L Normal [id number] 98 - 107 [facility] CREAT SERPL MCNC 1.5mg/dL Above high normal [id number] 0.7 - 1.3 [facility] Glomerular filtration rate/1.73 sq M. predicted 55 Below low normal [id number] 60 - [facility] ANION GAP SERPL SCNC 8mmol/L Normal [id number] 5 - 14 [facility] HCO3 SER SCNC 25mmol/L Normal [id number] 24 - 32 CTT HSFRAN BUN SERPL MCNC 17mg/dL Normal [id number] 9 - [address] CT [facility] POTASSIUM SERPL SCNC 3.8mmol/L Normal [id number] 3.5 - 5.1 [facility] GLUCOSE SERPL MCNC 119mg/dL Normal [id number] 70 - 199 [facility] SODIUM SERPL SCNC 131mmol/L Below low normal [id number] 135 - 145 [facility] DIFFERENTIAL TYPE AUTOMATED Normal [id number] [facility] NEUTROPHILS NFR BLD AUTO 76.7% Above high normal [id number] 44 - 74 [facility] LYMPHOCYTES NFR BLD AUTO 9.5% Below low normal [id number] 20 - 48 [facility] MONOCYTES NO. BLD AUTO 1K/uL Above high normal [id number] 0 - 0.8 [facility] LYMPHOCYTES NO. BLD AUTO 0.8K/uL Below low normal [id number] 1 - 3.2 [facility] BASOPHILS NFR BLD AUTO 1.1% Normal [id number] 0 - 2 [facility] EOSINOPHIL NFR BLD AUTO 1.2% Normal [id number] 0 - 6 [facility] EOSINOPHIL NO. BLD AUTO 0.1K/uL Normal [id number] 0 - 0.5 [facility] NEUTROPHILS NO. BLD AUTO 6.4K/uL Normal [id number] 1.8 - 7.8 [facility] BASOPHILS IN BLOOD BY AUTOMATED COUNT 0.1K/uL Normal [id number] 0 - 0.2 [facility] MONOCYTES NFR BLD AUTO 11.5% Normal [id number] 2 - 12 [facility] MCHC RBC AUTO MCNC 33.4g/dL Normal [id number] 32 - 36 [facility] RBC NO. BLD AUTO 2.56M/uL Below low normal [id number] 4.7 - 6 [facility] HCT VFR BLD AUTO 22.2% Below low normal [id number] 40 - 54 [facility] PLATELET NO. BLD AUTO 62K/uL Below low normal [id number] 150 - 450 [facility] RDW RBC AUTO RTO 19.9% Above high normal [id number] 12.1 - 17.7 [facility] MCH RBC QN AUTO 29pg Normal [id number] 25 - 33 C TTHSFRAN PMV BLD AUTO 7.7fL Normal [id number] 7.4 - 11.4 [facility] WBC NO. BLD AUTO 8.3K/uL Normal [id number] 4 - 10.5 [facility] HGB BLD MCNC 7.4g/dL Below low normal [id number] 13.5 - 18 [facility] MCV RBC AUTO 86.8fL Normal [id number] 78 - 100 CT[facility] SFRAN GLUCOSE BLDC GLUCOMTR MCNC 135mg/dL Normal [id number] 70 - 199 [facility] GLUCOSE BLDC GLUCOMTR MCNC 120mg/dL Normal [id number] 70 - 199 [facility] GLUCOSE BLDC GLUCOMTR MCNC 138mg/dL Normal [id number] 70 - 199 [facility] GLUCOSE BLDC GLUCOMTR MCNC 106mg/dL Normal [id number] 70 - 199 [facility] GLUCOSE BLDC GLUCOMTR MCNC 113mg/dL Normal [id number] 70 - 199 [facility] PMV BLD AUTO 7.2fL Below low normal [id number] 7.4 - 11.4 [facility] WBC NO. BLD AUTO 7.4K/uL Normal [id number] 4 - 10.5 [facility] RBC NO. BLD AUTO 2.86M/uL Below low normal [id number] 4.7 - 6 [facility] RDW RBC AUTO RTO 20% Above high normal [id number] 12.1 - 17.7 [facility] MCHC RBC AUTO MCNC 33.9g/dL Normal [id number] 32 - 36 [facility] PLATELET NO. BLD AUTO 94K/uL Below low normal [id number] 150 - 450 [facility] HCT VFR BLD AUTO 24.6% Below low normal [id number] 40 - 54 [facility] HGB BLD MCNC 8.3g/dL Below low normal [id number] 13.5 - 18 [facility] MCV RBC AUTO 86.1fL Normal [id number] 78 - 100 CT[facility] SFRAN MCH RBC QN AUTO 29.2pg Normal [id number] 25 - 33 C TTHSFRAN MAGNESIUM SERPL MCNC 1.1mg/dL Below low normal [id number] 1.7 - 2.8 [facility] SODIUM SERPL SCNC 134mmol/L Below low normal [id number] 135 - 145 [facility] ANION GAP SERPL SCNC 10mmol/L Normal [id number] 5 - 14 [facility] HCO3 SER SCNC 26mmol/L Normal [id number] 24 - 32 CTT HSFRAN GLUCOSE SERPL MCNC 115mg/dL Normal [id number] 70 - 199 [facility] POTASSIUM SERPL SCNC 3.7mmol/L Normal [id number] 3.5 - 5.1 CT[facility]AN Glomerular filtration rate/1.73 sq M. predicted 89 Normal [id number] 60 - CT[facility] BUN SERPL MCNC 12mg/dL Normal [id number] 9 - [address] CT [facility] CHLORIDE SERPL SCNC 98mmol/L Normal [id number] 98 - 107 [facility] CREAT SERPL MCNC 1mg/dL Normal [id number] 0.7 - 1.3 [facility] CALCIUM SERPL MCNC 7.5mg/dL Below low normal [id number] 2 8.4 - 10.2 [facility] Hgb A1c MFr Bld HPLC 4.4% Normal [id number] - 5.7 [facility] CK SERPL CCNC 33U/L Normal [id number] 30 - 135 CTT HSFRAN D DIMER DDU PPP EIA MCNC 819ng/mLDDU Above high normal [id number] - 231 [facility] LACTATE SERPL SCNC 1.7mmol/L Normal [id number] 0.5 - 2 [facility] CRP SERPL MCNC 6.8mg/dL Above high normal [id number] - 0. 9 [facility] POTASSIUM SERPL SCNC 3.8mmol/L Normal [id number] 3.5 - 5.1 [facility] GLUCOSE SERPL MCNC 131mg/dL Normal [id number] 70 - 199 [facility] Glomerular filtration rate/1.73 sq M. predicted 89 Normal [id number] 60 - [facility] HCO3 SER SCNC 27mmol/L Normal [id number] 24 - 32 CTT [facility] CALCIUM SERPL MCNC 8.2mg/dL Below low normal [id number] 5 8.4 - 10.2 [facility] ANION GAP SERPL SCNC 10mmol/L Normal [id number] 5 - 14 [facility] CREAT SERPL MCNC 1mg/dL Normal [id number] 0.7 - 1.3 [facility] CHLORIDE SERPL SCNC 96mmol/L Below low normal [id number] 98 - 107 [facility] SODIUM SERPL SCNC 133mmol/L Below low normal [id number] 135 - 145 [facility] BUN SERPL MCNC 11mg/dL Normal [id number] 9 - 20 CT [facility] ESR Bld Qn Photometric 15mm/h Normal [id number] 0 - 15 [facility] LACTATE SERPL SCNC 2.1mmol/L Above high normal [id number] 0.5 - 2 [facility] LYMPHOCYTES NFR BLD AUTO 6.4% Below low normal [id number] 20 - 48 [facility] HGB BLD MCNC 8g/dL Below low normal [id number] 13.5 - 18 [facility] EOSINOPHIL NFR BLD AUTO 0.6% Normal [id number] 0 - 6 CTTHS PLATELET NO. BLD AUTO 109K/uL Below low normal [id number] 150 - 450 [facility] WBC NO. BLD AUTO 7.2K/uL Normal [id number] 4 - 10.5 [facility] EOSINOPHIL NO. BLD AUTO 0K/uL Normal [id number] 0 - 0.5 [facility] IMMATURE GRANULOCYTE, PERCENT 0.4% Normal [id number] 0 - 1 [facility] LYMPHOCYTES NO. BLD AUTO 0.5K/uL Below low normal [id number] 1 - 3.2 [facility] MONOCYTES NFR BLD AUTO 9.7% Normal [id number] 2 - 12 [facility] NUCLEATED RBC 0% Normal [id number] 0 - 1 [facility] IMMATURE GRANULOCYTE, ABSOLUTE 0.03k/uL Normal [id number] - 0.1 [facility] BASOPHILS NFR BLD AUTO 0.3% Normal [id number] 0 - 2 [facility] NEUTROPHILS NFR BLD AUTO 82.6% Above high normal [id number] 44 - 74 [facility] HCT VFR BLD AUTO 25.2% Below low normal [id number] 40 - 54 [facility] MCH RBC QN AUTO 28.2pg Normal [id number] 25 - 33 C TTHS NEUTROPHILS NO. BLD AUTO 6K/uL Normal [id number] 1.8 - 7.8 [facility] PMV BLD AUTO 9.7fL Normal [id number] 7.4 - 11.4 [facility] MCHC RBC AUTO MCNC 31.7g/dL Below low normal [id number] 3 2 - 36 [facility] RDW RBC AUTO RTO 18.1% Above high normal [id number] 12.1 - 17.7 [facility] BASOPHILS IN BLOOD BY AUTOMATED COUNT 0K/uL Normal [id number] 0 - 0.2 [facility] RBC NO. BLD AUTO 2.84M/uL Below low normal [id number] 4.7 - 6 [facility] MONOCYTES NO. BLD AUTO 0.7K/uL Normal [id number] 0 - 0.8 [facility] MCV RBC AUTO 88.7fL Normal [id number] 78 - 100 [facility] BLOOD BANK CMNT PATIENT-IMP Normal [id number] CTTHN[facility]G ABO+RH GP BLD Normal CTT HNEMG BLD GP AB SCN SERPL QL Normal [facility] IRON SERPL MCNC 23mcg/dL Below low normal [id number] 49 - 181 [facility] TIBC SERPL MCNC 381ug/dL Normal [id number] 250 - 450 [facility] UIBC SERPL MCNC 358ug/dL Above high normal [id number] 155 - 355 [facility] IRON SATN MFR SERPL 6% Below low normal [id number] 20 - 45 [facility] FERRITIN SERPL MCNC 16ng/mL Below low normal [id number] 20 - 250 [facility] IMMATURE GRANULOCYTE, ABSOLUTE 0.01k/uL Normal [id number] - 0.1 [facility] RBC NO. BLD AUTO 2.99M/uL Below low normal [id number] 4.7 - 6 [facility] HCT VFR BLD AUTO 26.9% Below low normal [id number] 40 - 54 [facility] MCH RBC QN AUTO 28.1pg Normal [id number] 25 - 33 C [facility] NEUTROPHILS NO. BLD AUTO 3.5K/uL Normal [id number] 1.8 - 7.8 [facility] HGB BLD MCNC 8.4g/dL Below low normal [id number] 13.5 - 18 [facility] PMV BLD AUTO 9.2fL Normal [id number] 7.4 - 11.4 [facility] LYMPHOCYTES NFR BLD AUTO 11.5% Below low normal [id number] 20 - 48 [facility] WBC NO. BLD AUTO 4.8K/uL Normal [id number] 4 - 10.5 [facility] IMMATURE GRANULOCYTE, PERCENT 0.2% Normal [id number] 0 - 1 [facility] MCHC RBC AUTO MCNC 31.2g/dL Below low normal [id number] 3 2 - 36 [facility] MONOCYTES NO. BLD AUTO 0.6K/uL Normal [id number] 0 - 0.8 [facility] EOSINOPHIL NFR BLD AUTO 3.1% Normal [id number] 0 - 6 [facility] BASOPHILS IN BLOOD BY AUTOMATED COUNT 0K/uL Normal [id number] 0 - 0.2 [facility] MCV RBC AUTO 90fL Normal [id number] 78 - 100 CT[facility] BASOPHILS NFR BLD AUTO 0.6% Normal [id number] 0 - 2 [facility] PLATELET NO. BLD AUTO 132K/uL Below low normal [id number] 150 - 450 [facility] EOSINOPHIL NO. BLD AUTO 0.2K/uL Normal [id number] 0 - 0.5 [facility] RDW RBC AUTO RTO 17.5% Normal [id number] 12.1 - 17.7 [facility] NEUTROPHILS NFR BLD AUTO 73.1% Normal [id number] 44 - 74 [facility] MONOCYTES NFR BLD AUTO 11.5% Normal [id number] 2 - 12 [facility] LYMPHOCYTES NO. BLD AUTO 0.6K/uL Below low normal [id number] 1 - 3.2 [facility] GLUCOSE BLDC GLUCOMTR MCNC 97mg/dL Normal [id number] 70 - 199 [facility] PT TIME PPP 20sec Above high normal [id number] 10.5 - 13.3 [facility] INR PPP 1.7 Above high normal [id number] 0.8 - 1.1 [facility] BLOOD BANK CMNT PATIENT-IMP Normal [id number] [facility] ABO+RH GP BLD Normal [id number] [facility] BLD GP AB SCN SERPL QL Normal [id number] [facility] EOSINOPHIL NO. BLD AUTO 0.2K/uL Normal [id number] 0 - 0.5 [facility] PMV BLD AUTO 8.3fL Normal [id number] 7.4 - 11.4 [facility] MONOCYTES NFR BLD AUTO 8% Normal [id number] 2 - 12 [facility] BASOPHILS NFR BLD AUTO 1% Normal [id number] 0 - 2 [facility] EOSINOPHIL NFR BLD AUTO 3.9% Normal [id number] 0 - 6 [facility] LYMPHOCYTES NFR BLD AUTO 11.3% Below low normal [id number] 20 - 48 [facility] LYMPHOCYTES NO. BLD AUTO 0.5K/uL Below low normal [id number] 1 - 3.2 [facility] NEUTROPHILS NO. BLD AUTO 3.5K/uL Normal [id number] 1.8 - 7.8 CTTHS PLATELET NO. BLD AUTO 88K/uL Below low normal [id number] 150 - 450 [facility] DIFFERENTIAL TYPE AUTOMATED Normal [id number] [facility] MONOCYTES NO. BLD AUTO 0.4K/uL Normal [id number] 0 - 0.8 [facility] BASOPHILS IN BLOOD BY AUTOMATED COUNT 0K/uL Normal [id number] 0 - 0.2 [facility] NEUTROPHILS NFR BLD AUTO 75.8% Above high normal [id number] 44 - 74 [facility] MCH RBC QN AUTO 29.5pg Normal [id number] 25 - 33 C T[facility]S HGB BLD MCNC 8.2g/dL Below low normal [id number] 13.5 - 18 [facility] WBC NO. BLD AUTO 4.6K/uL Normal [id number] 4 - 10.5 [facility] HCT VFR BLD AUTO 25.9% Below low normal [id number] 40 - 54 [facility] RBC NO. BLD AUTO 2.79M/uL Below low normal [id number] 4.7 - 6 [facility] MCV RBC AUTO 92.8fL Normal [id number] 78 - 100 CT[facility] RDW RBC AUTO RTO 24.9% Above high normal [id number] 12.1 - 17.7 [facility] MCHC RBC AUTO MCNC 31.8g/dL Below low normal [id number] 3 2 - 36 [facility] EOSINOPHIL NFR BLD AUTO 3.5% Normal [id number] 0 - 6 [facility] LYMPHOCYTES NFR BLD AUTO 12.3% Below low normal [id number] 20 - 48 [facility] NEUTROPHILS NO. BLD AUTO 3.6K/uL Normal [id number] 1.8 - 7.8 [facility] BASOPHILS IN BLOOD BY AUTOMATED COUNT 0K/uL Normal [id number] 0 - 0.2 [facility] BASOPHILS NFR BLD AUTO 0.6% Normal [id number] 0 - 2 [facility] LYMPHOCYTES NO. BLD AUTO 0.6K/uL Below low normal [id number] 1 - 3.2 [facility] NEUTROPHILS NFR BLD AUTO 74.3% Above high normal [id number] 44 - 74 [facility] EOSINOPHIL NO. BLD AUTO 0.2K/uL Normal [id number] 0 - 0.5 [facility] MONOCYTES NFR BLD AUTO 8.9% Normal [id number] 2 - 12 [facility] IMMATURE GRANULOCYTE, ABSOLUTE 0.02k/uL Normal [id number] - 0.1 [facility] IMMATURE GRANULOCYTE, PERCENT 0.4% Normal [id number] 0 - 1 [facility] MONOCYTES NO. BLD AUTO 0.4K/uL Normal [id number] 0 - 0.8 [facility] HGB BLD MCNC 7.6g/dL Below low normal [id number] 13.5 - 18 [facility] PLATELET NO. BLD AUTO 119K/uL Below low normal [id number] 150 - 450 [facility] HCT VFR BLD AUTO 26.1% Below low normal [id number] 40 - 54 [facility] PMV BLD AUTO 10.8fL Normal [id number] 7.4 - 11.4 [facility] WBC NO. BLD AUTO 4.8K/uL Normal [id number] 4 - 10.5 [facility] RBC NO. BLD AUTO 2.74M/uL Below low normal [id number] 4.7 - 6 [facility] MCH RBC QN AUTO 27.7pg Normal [id number] 25 - 33 [facility] RDW RBC AUTO RTO 21.2% Above high normal [id number] 12.1 - 17.7 [facility] MCHC RBC AUTO MCNC 29.1g/dL Below low normal [id number] 3 2 - 36 [facility] MCV RBC AUTO 95.3fL Normal [id number] 78 - 100 [facility] ABO+RH GP BLD Normal [id number] [facility] BLOOD BANK CMNT PATIENT-IMP Normal [id number] [facility] BLD GP AB SCN SERPL QL Normal [id number] [facility] PLATELET NO. BLD AUTO 183K/uL Normal [id number] 150 - 450 [facility] HCT VFR BLD AUTO 28.4% Below low normal [id number] 40 - 54 [facility] EOSINOPHIL NFR BLD AUTO 4% Normal [id number] 0 - 6 [facility] MONOCYTES NO. BLD AUTO 0.3K/uL Normal [id number] 0 - 0.8 [facility] BASOPHILS NFR BLD AUTO 0.8% Normal 0 - 2 [facility] WBC NO. BLD AUTO 6.2K/uL Normal [id number] 4 - 10.5 [facility] NEUTROPHILS NO. BLD AUTO 4.9K/uL Normal 1.8 - 7.8 [facility] LYMPHOCYTES NO. BLD AUTO 0.7K/uL Below low normal [id number] 1 - 3.2 [facility] MCV RBC AUTO 90.2fL Normal [id number] 78 - 100 [facility] RDW RBC AUTO RTO 17.1% Normal 12.1 - 17.7 [facility] BASOPHILS IN BLOOD BY AUTOMATED COUNT 0.1K/uL Normal 0 - 0.2 [facility] IMMATURE GRANULOCYTE, PERCENT 0.2% Normal 0 - 1 [facility] LYMPHOCYTES NFR BLD AUTO 11.2% Below low normal [id number] 20 - 48 [facility] EOSINOPHIL NO. BLD AUTO 0.3K/uL Normal 0 - 0.5 [facility] MCHC RBC AUTO MCNC 29.2g/dL Below low normal [id number] 3 2 - 36 [facility] PMV BLD AUTO 9.3fL Normal [id number] 7.4 - 11.4 [facility] RBC NO. BLD AUTO 3.15M/uL Below low normal [id number] 4.7 - 6 [facility] HGB BLD MCNC 8.3g/dL Below low normal [id number] 13.5 - 18 [facility] NEUTROPHILS NFR BLD AUTO 79% Above high normal [id number] 44 - 74 [facility] MONOCYTES NFR BLD AUTO 4.8% Normal 2 - 12 [facility] MCH RBC QN AUTO 26.3pg Normal [id number] 25 - 33 [facility] IMMATURE GRANULOCYTE, ABSOLUTE 0.01k/uL Normal [id number] - 0.1 [facility] ABO+RH GP BLD Normal [facility] BLOOD BANK CMNT PATIENT-IMP Normal [id number] [facility] BLD GP AB SCN SERPL QL Normal [facility] BLD GP AB SCN SERPL QL Normal [facility] BLOOD BANK [facility] PATIENT-IMP Normal [facility] ABO+RH GP BLD Normal [facility] NEUTROPHILS NFR BLD AUTO 72.4% Normal [id number] 44 - 74 [facility] IMMATURE GRANULOCYTE, ABSOLUTE 0.02k/uL Normal [id number] - 0.1 [facility] IMMATURE GRANULOCYTE, PERCENT 0.3% Normal [id number] 0 - 1 [facility] EOSINOPHIL NO. BLD AUTO 0.2K/uL Normal [id number] 0 - 0.5 [facility] MONOCYTES NO. BLD AUTO 0.8K/uL Normal [id number] 0 - 0.8 [facility] BASOPHILS NFR BLD AUTO 0.4% Normal [id number] 0 - 2 [facility] MONOCYTES NFR BLD AUTO 11.2% Normal [id number] 2 - 12 [facility] NEUTROPHILS NO. BLD AUTO 4.9K/uL Normal [id number] 1.8 - 7.8 [facility] LYMPHOCYTES NFR BLD AUTO 12.2% Below low normal [id number] 20 - 48 [facility] LYMPHOCYTES NO. BLD AUTO 0.8K/uL Below low normal [id number] 1 - 3.2 [facility] EOSINOPHIL NFR BLD AUTO 3.5% Normal [id number] 0 - 6 [facility] BASOPHILS IN BLOOD BY AUTOMATED COUNT 0K/uL Normal [id number] 0 - 0.2 [facility] PLATELET NO. BLD AUTO 146K/uL Below low normal [id number] 150 - 450 [facility] MCV RBC AUTO 88.7fL [facility] [id number] 78 - [facility] 2.74M/uL Below low normal [id number] 4.7 - 6 [facility] PMV BLD AUTO 9.8fL Normal [id number] 7.4 - 11.4 [facility] WBC NO. BLD AUTO 6.8K/uL Normal [id number] 4 - 10.5 [facility] MCHC RBC AUTO MCNC 30g/dL Below low normal [id number] 3 2 - 36 [facility] MCH RBC QN AUTO 26.6pg Normal [id number] 25 - 33 [facility] HGB BLD MCNC 7.3g/dL Below low normal [id number] 13.5 - 18 [facility] RDW RBC AUTO RTO 15.7% Normal [id number] 12.1 - 17.7 [facility] HCT VFR BLD AUTO 24.3% Below low normal [id number] 40 - 54 [facility] TRANS NUM UNITS PACKED RBC Normal [id number] [facility] TRANS NUM UNITS PACKED RBC Normal [id number] [facility] WBC NO. BLD AUTO 10.1K/uL Normal [id number] 4 - 10.5 [facility] BASOPHILS IN BLOOD BY AUTOMATED COUNT 0K/uL Normal [id number] 0 - 0.2 [facility] EOSINOPHIL NFR BLD AUTO 1.1% Normal [id number] 0 - 6 [facility] PMV BLD AUTO 8.1fL Normal [id number] 7.4 - 11.4 [facility] DIFFERENTIAL TYPE AUTOD Normal [id number] [facility] MONOCYTES NO. BLD AUTO 0.8K/uL Normal [id number] 0 - 0.8 [facility] PLATELET NO. BLD AUTO 173K/uL Normal [id number] 150 - 450 [facility] HCT VFR BLD AUTO 20.2% Below low normal [id number] 40 - 54 [facility] HGB BLD MCNC 6.5g/dL Below low normal [id number] 13.5 - 18 [facility] MONOCYTES NFR BLD AUTO 7.9% Normal [id number] 2 - 12 [facility] LYMPHOCYTES NO. BLD AUTO 0.7K/uL Below low normal [id number] 1 - 3.2 [facility] RBC NO. BLD AUTO 2.41M/uL Below low normal [id number] 4.7 - 6 [facility] MCH RBC QN AUTO 26.9pg Normal [id number] 25 - 33 [facility] BASOPHILS NFR BLD AUTO 0.3% Normal [id number] 0 - 2 [facility] MCHC RBC AUTO MCNC 32g/dL Normal [id number] 32 - 36 [facility] RDW RBC AUTO RTO 18% Above high normal 12.1 - 17.7 [facility] LYMPHOCYTES NFR BLD AUTO 7.4% Below low normal 20 - 48 [facility] NEUTROPHILS NFR BLD AUTO 83.3% Above high normal 44 - 74 [facility] MCV RBC AUTO 83.9fL Normal 78 - 100 [facility] EOSINOPHIL NO. BLD AUTO 0.1K/uL Normal 0 - 0.5 [facility] NEUTROPHILS NO. BLD AUTO 8.4K/uL Above high normal 1.8 - 7.8 [facility] MCV RBC AUTO 83.9fL Normal 78 - 100 [facility] NO. BLD AUTO 0.1K/uL Normal 0 - 0.5 [facility] DIFFERENTIAL TYPE AUTOD Normal [facility] WBC NO. BLD AUTO 10.1K/uL Normal 4 - 10.5 [facility] LYMPHOCYTES NFR BLD AUTO 7.4% Below low normal 20 - 48 [facility] PLATELET NO. BLD AUTO 173K/uL Normal 150 - 450 [facility] BASOPHILS NFR BLD AUTO 0.3% Normal 0 - 2 [facility] MONOCYTES NO. BLD AUTO 0.8K/uL Normal 0 - 0.8 [facility] PMV BLD AUTO 8.1fL Normal 7.4 - 11.4 [facility] HCT VFR BLD AUTO 20.2% Below low normal 40 - 54 [facility] BASOPHILS IN BLOOD BY AUTOMATED COUNT 0K/uL Normal 0 - 0.2 [facility] HGB BLD MCNC 6.5g/dL Below low normal 13.5 - 18 [facility] NEUTROPHILS NO. BLD AUTO 8.4K/uL Above high normal 1.8 - 7.8 [facility] LYMPHOCYTES NO. BLD AUTO 0.7K/uL Below low normal 1 - 3.2 [facility] MONOCYTES NFR BLD AUTO 7.9% Normal [id number] 2 - 12 [facility] MCH RBC QN AUTO 26.9pg Normal 25 - 33 [facility] RDW RBC AUTO RTO 18% Above high normal 12.1 - 17.7 [facility] MCHC RBC AUTO MCNC 32g/dL Normal 32 - 36 [facility] RBC NO. BLD AUTO 2.41M/uL Below low normal 4.7 - 6 [facility] EOSINOPHIL NFR BLD AUTO 1.1% Normal 0 - 6 [facility] NEUTROPHILS NFR BLD AUTO 83.3% Above high normal [id number] 44 - 74 [facility] BLOOD BANK CMNT PATIENT-IMP Normal [id number] [facility] BLD GP AB SCN SERPL QL Normal [facility] ABO+RH GP BLD Normal [facility] MONOCYTES NO. BLD AUTO 0.8K/uL Normal 0 - 0.8 [facility] NEUTROPHILS NO. BLD AUTO 5.5K/uL Normal 1.8 - 7.8 [facility] PMV BLD AUTO 9.2fL Normal [id number] 7.4 - 11.4 [facility] BASOPHILS IN BLOOD BY AUTOMATED COUNT 0.1K/uL Normal [id number] 0 - 0.2 [facility] PLATELET NO. BLD AUTO 158K/uL Normal 150 - 450 [facility] HGB BLD MCNC 7.4g/dL Below low normal [id number] 13.5 - 18 [facility] LYMPHOCYTES NFR BLD AUTO 11.4% Below low normal 20 - 48 [facility] RDW RBC AUTO RTO 16.7% Normal 12.1 - 17.7 [facility] EOSINOPHIL NFR BLD AUTO 4.9% Normal 0 - 6 [facility] MONOCYTES NFR BLD AUTO 10.3% Normal 2 - 12 [facility] MCH RBC QN AUTO 28.1pg Normal 25 - 33 [facility] NEUTROPHILS NFR BLD AUTO 72.2% Normal 44 - 74 [facility] LYMPHOCYTES NO. BLD AUTO 0.9K/uL Below low normal [id number] 1 - 3.2 [facility] MCV RBC AUTO 87.3fL Normal [id number] 78 - 100 [facility] HCT VFR BLD AUTO 23% Below low normal [id number] 40 - 54 [facility] DIFFERENTIAL TYPE AUTOMATED Normal [facility] RBC NO. BLD AUTO 2.63M/uL Below low normal [id number] 4.7 - 6 [facility] EOSINOPHIL NO. BLD AUTO 0.4K/uL Normal 0 - 0.5 [facility] BASOPHILS NFR BLD AUTO 1.2% Normal [id number] 0 - 2 [facility] MCHC RBC AUTO MCNC 32.2g/dL Normal [id number] 32 - 36 [facility] WBC NO. BLD AUTO 7.6K/uL Normal [id number] 4 - 10.5 [facility] HCO3 SER SCNC 26mmol/L Normal [id number] 24 - 32 [facility] ALP SERPL-CCNC 174U/L Above high normal [id number] 34 - 104 [facility] BUN SERPL MCNC 23mg/dL Above high normal [id number] 9 - 20 [facility] ALT SERPL [facility] 19U/L Normal [id number] 7 - 52 [facility] PROT SERPL MCNC 6.2g/dL Below low normal [id number] 6 .4 - 8.5 [facility] ALBUMIN SERPL BCG MCNC 4g/dL Normal [id number] 3.5 - 5 [facility] AST SERPL CC[facility] 33U/L Normal [id number] 5 - 40 [facility] ANION GAP SERPL SCNC 9mmol/L Normal [id number] 5 - 14 [facility] CALCIUM SERPL MCNC 9.6mg/dL Normal [id number] 8.4 - 10.2 [facility] CHLORIDE SERPL SCNC 100mmol/L Normal [id number] 98 - 107 [facility] SODIUM SERPL SCNC 135mmol/L Normal [id number] 135 - 145 [facility] POTASSIUM SERPL SCNC 4.8mmol/L Normal [id number] 3.5 - 5.1 [facility] BILIRUB SERPL [facility]NC 1.2mg/dL Above high normal [id number] 0.3 - 1 [facility] GLUCOSE P FAST SERPL [facility]NC 120mg/dL Above high normal [id number] 70 - 99 [facility] CREAT SERPL MCNC 1.4mg/dL Above high normal [id number] 0.7 - 1.3 [facility] Glomerular filtration rate/1.73 sq M. predicted 59 Below low normal [id number] 60 - [facility] PROT UR MCNC 9.2mg/dL Normal [id number] - 14 [facility] CREAT UR MCNC 75.4mg/dL Normal [id number] [facility] FERRITIN SERPL MCNC 13ng/mL Below low normal [id number] 20 - 250 [facility] EOSINOPHIL NFR BLD AUTO 5.9% Normal [id number] 0 - 6 [facility] MCH RBC QN AUTO 28.2pg Normal [id number] 25 - 33 [facility] PMV BLD AUTO 9.2fL Normal [id number] 7.4 - 11.4 [facility] HCT VFR BLD AUTO 21.9% Below low normal [id number] 40 - 54 [facility] BASOPHILS NFR BLD AUTO 1.2% Normal [id number] 0 - 2 [facility] RBC NO. BLD AUTO 2.52M/uL Below low normal [id number] 4.7 - 6 [facility] BASOPHILS IN BLOOD BY AUTOMATED COUNT 0.1K/uL Normal [id number] 0 - 0.2 [facility] LYMPHOCYTES NO. BLD AUTO 0.9K/uL Below low normal [id number] 1 - 3.2 [facility] HGB BLD MCNC 7.1g/dL Below low normal [id number] 13.5 - 18 [facility] NEUTROPHILS NO. BLD AUTO 5.8K/uL Normal [id number] 1.8 - 7.8 [facility] MONOCYTES NO. BLD AUTO 0.6K/uL Normal [id number] 0 - 0.8 [facility] EOSINOPHIL NO. BLD AUTO 0.5K/uL Normal [id number] 0 - 0.5 [facility] MCV RBC AUTO 87fL Normal [id number] 78 - 100 [facility] RDW RBC AUTO RTO 16.6% Normal [id number] 12.1 - 17.7 [facility] NEUTROPHILS NFR BLD AUTO 73.7% Normal [id number] 44 - 74 [facility] MONOCYTES NFR BLD AUTO 8.1% Normal [id number] 2 - 12 [facility] PLATELET NO. BLD AUTO 152K/uL Normal [id number] 150 - 450 [facility] WBC NO. BLD AUTO 7.9K/uL Normal [id number] 4 - 10.5 [facility] DIFFERENTIAL TYPE AUTOMATED Normal [id number] [facility] LYMPHOCYTES NFR BLD AUTO 11.1% Below low normal [id number] 20 - 48 [facility] MCHC RBC AUTO MCNC 32.4g/dL Normal [id number] 32 - 36 [facility] TIBC SERPL [facility]NC 471ug/dL Above high normal [id number] 250 - 450 [facility] IRON SATN MFR SERPL 5% Below low normal [id number] 20 - 45 [facility] UIBC SERPL MCNC 449ug/dL Above high normal [id number] 155 - 355 [facility] IRON SERPL MCNC 22mcg/dL Below low normal [id number] 49 - 181 [facility] GLUCOSE SERPL MCNC 133mg/dL Normal [id number] 70 - 199 [facility] Glomerular filtration rate/1.73 sq M. predicted 55 Below low normal [id number] 60 - [facility] BUN SERPL [facility]NC 21mg/dL Above high normal [id number] 9 - 20 [facility] PROT SERPL MCNC 6.2g/dL Below low normal [id number] 6 .4 - 8.5 [facility] POTASSIUM SERPL SCNC 4.6mmol/L Normal [id number] 3.5 - 5.1 [facility] ANION GAP SERPL [facility] 11mmol/L Normal [id number] 5 [facility] 14 [facility] SODIUM SERPL SC[facility] 139mmol/L Normal [id number] 135 - 145 [facility] ALP SERPL-CCNC 179U/L Above high normal [id number] 34 - 104 [facility] BILIRUB SERPL MCNC 1.6mg/dL Above high normal [id number] 0.3 - 1 [facility] CALCIUM SERPL MCNC 9.2mg/dL Normal [id number] 8.4 - 10.2 [facility] ALBUMIN SERPL BCG MCNC 3.9g/dL Normal [id number] 3.5 - 5 [facility] ALT SERPL [facility] 19U/L Normal [id number] 7 - 52 [facility] CREAT SERPL [facility]NC 1.5mg/dL Above high normal [id number] 0.7 - 1.3 [facility] AST SERPL CCNC 46U/L Above high normal [id number] 5 - 40 [facility] HCO3 SER SCNC 25mmol/L Normal [id number] 24 - 32 [facility] CHLORIDE SERPL SCNC 103mmol/L Normal [id number] 98 - 107 [facility] MCHC RBC AUTO MCNC 33.3g/dL Normal [id number] 32 - 36 [facility] LYMPHOCYTES NO. BLD AUTO 0.7K/uL Below low normal [id number] 1 - 3.2 [facility] HCT VFR BLD AUTO 25.4% Below low normal [id number] 40 - 54 [facility] EOSINOPHIL NO. BLD AUTO 0.3K/uL Normal [id number] 0 - 0.5 [facility] NEUTROPHILS NFR BLD AUTO 68.9% Normal [id number] 44 - 74 [facility] NEUTROPHILS NO. BLD AUTO 3.7K/uL Normal [id number] 1.8 - 7.8 [facility] RDW RBC AUTO RTO 17.2% Normal [id number] 12.1 - 17.7 [facility] LYMPHOCYTES NFR BLD AUTO 13.4% Below low normal [id number] 20 - 48 [facility] PLATELET NO. BLD AUTO 126K/uL Below low normal [id number] 150 - 450 [facility] DIFFERENTIAL TYPE AUTOMATED Normal [id number] [facility] MCV RBC AUTO 92.8fL Normal [id number] 78 - 100 [facility] BASOPHILS IN BLOOD BY AUTOMATED COUNT 0.1K/uL Normal [id number] 0 - 0.2 [facility] MCH RBC QN AUTO 30.9pg Normal [id number] 25 - 33 [facility] EOSINOPHIL NFR BLD AUTO 5.7% Normal [id number] 0 - 6 [facility] WBC NO. BLD AUTO 5.4K/uL Normal [id number] 4 - 10.5 [facility] BASOPHILS NFR BLD AUTO 1.4% Normal [id number] 0 - 2 [facility] RBC NO. BLD AUTO 2.73M/uL Below low normal [id number] 4.7 - 6 [facility] PMV BLD AUTO 9.2fL Normal [id number] 7.4 - 11.4 [facility] MONOCYTES NFR BLD AUTO 10.6% Normal [id number] 2 - 12 [facility] MONOCYTES NO. BLD AUTO 0.6K/uL Normal [id number] 0 - 0.8 [facility] HGB BLD MCNC 8.4g/dL Below low normal [id number] 13.5 - 18 [facility] HCT VFR BLD AUTO 22.6% Below low normal [id number] 40 - 54 [facility] HGB BLD MCNC 7.6g/dL Below low normal [id number] 13.5 - 18 [facility] GLUCOSE BLDC GLUCOMTR MCNC 151mg/dL Normal [id number] 70 - 199 [facility] GLUCOSE BLDC GLUCOMTR MCNC 114mg/dL Normal [id number] 70 - 199 [facility] HCT VFR BLD AUTO 20.4% Below low normal [id number] 40 - 54 [facility] HGB BLD MCNC 6.8g/dL Below low normal [id number] 13.5 - 18 [facility] ANION GAP SERPL SCNC 9mmol/L Normal [id number] 5 - 14 [facility] BUN SERPL MCNC 30mg/dL Above high normal [id number] 9 - 20 [facility] GLUCOSE SERPL MCNC 104mg/dL Normal [id number] 70 - 199 [facility] CHLORIDE SERPL SCNC 98mmol/L Normal [id number] 98 - 107 [facility] CREAT SERPL MCNC 1.7mg/dL Above high normal [id number] 0.7 - 1.3 [facility] HCO3 SER SCNC 26mmol/L Normal [id number] 24 - 32 [facility] Glomerular filtration rate/1.73 sq M. predicted 47 Below low normal [id number] 60 - [facility] SODIUM SERPL SCNC 133mmol/L Below low normal [id number] 135 - 145 [facility] POTASSIUM SERPL SCNC 4.4mmol/L Normal [id number] 3.5 - 5.1 [facility] CALCIUM SERPL MCNC 8.8mg/dL Normal [id number] 8.4 - 10.2 [facility] TRANS NUM UNITS PACKED RBC Normal [id number] [facility] RDW RBC AUTO RTO 16.2% Normal [id number] 12.1 - 17.7 [facility] HCT VFR BLD AUTO 19.5% Below low normal [id number] 40 - 54 [facility] PMV BLD AUTO 9.4fL Normal [id number] 7.4 - 11.4 [facility] WBC NO. BLD AUTO 4.5K/uL Normal [id number] 4 - 10.5 [facility] HGB BLD MCNC 6.6g/dL Below low normal [id number] 13.5 - 18 [facility] MCH RBC QN AUTO 30.4pg Normal [id number] 25 - 33 C [facility] PLATELET NO. BLD AUTO 103K/uL Below low normal [id number] 150 - 450 [facility] MCV RBC AUTO 90.6fL Normal 78 - 100 [facility] MCHC RBC AUTO MCNC 33.6g/dL Normal 32 - 36 [facility] RBC NO. BLD AUTO 2.16M/uL Below low normal [id number] 4.7 - 6 [facility] GLUCOSE BLDC GLUCOMTR MCNC 133mg/dL Normal [id number] 70 - 199 [facility] TRANS NUM UNITS PACKED RBC Normal [id number] [facility] NEUTROPHILS NFR BLD AUTO 67.3% Normal [id number] 44 - 74 [facility] BASOPHILS IN BLOOD BY AUTOMATED COUNT 0K/uL Normal [id number] 0 - 0.2 [facility] EOSINOPHIL NFR BLD AUTO 3.8% Normal [id number] 0 - 6 [facility] LYMPHOCYTES NO. BLD AUTO 0.5K/uL Below low normal [id number] 1 - 3.2 [facility] MCH RBC QN AUTO 30.3pg Normal [id number] 25 - 33 C [facility] HCT VFR BLD AUTO 18.8% Below low normal [id number] 40 - 54 [facility] BASOPHILS NFR BLD AUTO 1.2% Normal [id number] 0 - 2 [facility] MONOCYTES NFR BLD AUTO 13.7% Above high normal [id number] 2 - 12 [facility] PLATELET NO. BLD AUTO 106K/uL Below low normal [id number] 150 - 450 [facility] PMV BLD AUTO 9.4fL Normal [id number] 7.4 - 11.4 [facility] RDW RBC AUTO RTO 16.4% Normal [id number] 12.1 - 17.7 [facility] HGB BLD MCNC 6.2g/dL Below low normal [id number] 13.5 - 18 [facility] RBC NO. BLD AUTO 2.05M/uL Below low normal [id number] 4.7 - 6 [facility] MONOCYTES NO. BLD AUTO 0.5K/uL Normal [id number] 0 - 0.8 [facility] LYMPHOCYTES NFR BLD AUTO 14% Below low normal [id number] 20 - 48 [facility] DIFFERENTIAL TYPE AUTOMATED Normal [id number] [facility] MCHC RBC AUTO MCNC 33g/dL Normal [id number] 32 - 36 [facility] WBC NO. BLD AUTO 3.9K/uL Below low normal [id number] 4 - 10.5 [facility] NEUTROPHILS NO. BLD AUTO 2.6K/uL Normal [id number] 1.8 - 7.8 [facility] EOSINOPHIL NO. BLD AUTO 0.2K/uL Normal [id number] 0 - 0.5 [facility] MCV RBC AUTO 92fL Normal [id number] 78 - 100 [facility] AMYLASE SERPL [facility] 22U/L Below low normal [id number] 2 9 - 103 [facility] BILIRUB DIRECT SERPL MCNC 0.3mg/dL Above high normal [id number] 0 - 0.2 [facility] BILIRUB SERPL MCNC 1.4mg/dL Above high normal [id number] 0.3 - 1 [facility] LIPASE SERPL [facility]NC 63U/L Normal [id number] 11 - 82 [facility] PT TIME PPP 20.6sec Above high normal [id number] 10.5 - 13.3 [facility] INR PPP 1.7 Above high normal [id number] 0.8 - 1.1 [facility] ALT SERPL [facility] 19U/L Normal [id number] 7 - 52 [facility] ALP SERPL-CCNC 175U/L Above high normal [id number] 34 - 104 [facility] AST SERPL CC[facility] 51U/L Above high normal [id number] 5 - 40 [facility] LDH SERPL L TO P CCNC 223U/L Above high normal [id number] 125 - 220 [facility] ABO+RH GP BLD Normal [id number] [facility] BLD GP AB SCN SERPL QL Normal [facility] [place] BLOOD BANK CMNT PATIENT-IMP Normal [facility] APTT TIME PPP 38sec Above high normal [id number] 25 - 37 [facility] CALCIUM SERPL MCNC 8.9mg/dL Normal [id number] 8.4 - 10.2 [facility] POTASSIUM SERPL SCNC 5.3mmol/L Above high normal [id number] 3.5 - 5.1 [facility] SODIUM SERPL SCNC 129mmol/L Below low normal [id number] 135 - 145 [facility] BUN SERPL MCNC 31mg/dL Above high normal [id number] 9 - 20 [facility] CHLORIDE SERPL SCNC 96mmol/L Below low normal [id number] 98 - 107 [facility] HCO3 SER SCNC 23mmol/L Below low normal [id number] 24 - 3 2 [facility] GLUCOSE SERPL MCNC 115mg/dL Normal [id number] 70 - 199 [facility] ANION GAP SERPL SCNC 10mmol/L Normal [id number] 5 - 14 [facility] CREAT SERPL MCNC 1.8mg/dL Above high normal [id number] 0.7 - 1.3 [facility] Glomerular filtration rate/1.73 sq M. predicted 44 Below low normal [id number] 60 - [facility] FERRITIN SERPL MCNC 22ng/mL Normal [id number] 20 - 250 [facility] TIBC SERPL [facility]NC 440ug/dL Normal [id number] 250 - 450 [facility] UIBC SERPL MCNC 374ug/dL Above high normal [id number] 155 - 355 [facility] IRON SATN MFR SERPL 15% Below low normal [id number] 20 - 45 [facility] IRON SERPL MCNC 66mcg/dL Normal [id number] 49 - 181 [facility] MCH RBC QN AUTO 29.7pg Normal [id number] 25 - 33 C [facility] RDW RBC AUTO RTO 15.6% Normal [id number] 12.1 - 17.7 [facility] BASOPHILS NFR BLD AUTO 1.1% Normal [id number] 0 - 2 [facility] PMV BLD AUTO 11fL Normal [id number] 7.4 - 11.4 [facility] LYMPHOCYTES NFR BLD AUTO 8.9% Below low normal [id number] 20 - 48 [facility] EOSINOPHIL NO. BLD AUTO 0.2K/uL Normal [id number] 0 - 0.5 [facility] MCV RBC AUTO 95.3fL Normal [id number] 78 - [facility]OM[facility] COUNT 0.1K/uL Normal [id number] 0 - 0.2 [facility] EOSINOPHIL NFR BLD AUTO 4% Normal [id number] 0 - 6 [facility] MONOCYTES NO. BLD AUTO 0.6K/uL Normal [id number] 0 - 0.8 [facility] RBC NO. BLD AUTO 2.12M/uL Below low normal [id number] 4.7 - 6 [facility] MONOCYTES NFR BLD AUTO 10.7% Normal [id number] 2 - 12 [facility] HCT VFR BLD AUTO 20.2% Below low normal [id number] 40 - 54 [facility] PLATELET NO. BLD AUTO 127K/uL Below low normal [id number] 150 - 450 [facility] IMMATURE GRANULOCYTE, PERCENT 0.4% Normal [id number] 0 - 1 [facility] MCHC RBC AUTO MCNC 31.2g/dL Below low normal [id number] 3 2 - 36 [facility] LYMPHOCYTES NO. BLD AUTO 0.5K/uL Below low normal [id number] 1 - 3.2 [facility] NEUTROPHILS NFR BLD AUTO 74.9% Above high normal [id number] 44 - 74 [facility] WBC NO. BLD AUTO 5.5K/uL Normal [id number] 4 - 10.5 [facility] NEUTROPHILS NO. BLD AUTO 4.2K/uL Normal [id number] 1.8 - 7.8 [facility] HGB BLD MCNC 6.3g/dL Below low normal [id number] 13.5 - 18 [facility] IMMATURE GRANULOCYTE, ABSOLUTE 0.02k/uL Normal [id number] - 0.1 [facility] MAGNESIUM SERPL MCNC 1.3mg/dL Below low normal [id number] 1.7 - 2.8 [facility] LYMPHOCYTES NFR BLD AUTO 13.9% Below low normal [id number] 20 - 48 [facility] BASOPHILS NFR BLD AUTO 1.7% Normal [id number] 0 - 2 [facility] MCHC RBC AUTO MCNC 33.2g/dL Normal [id number] 32 - 36 [facility] RDW RBC AUTO RTO 16.5% Normal [id number] 12.1 - 17.7 [facility] PMV BLD AUTO 9.2fL Normal [id number] 7.4 - 11.4 [facility] MONOCYTES NO. BLD AUTO 0.6K/uL Normal [id number] 0 - 0.8 [facility] HCT VFR BLD AUTO 28.9% Below low normal [id number] 40 - 54 [facility] PLATELET NO. BLD AUTO 152K/uL Normal [id number] 150 - 450 [facility] BASOPHILS IN BLOOD BY AUTOMATED COUNT 0.1K/uL Normal [id number] 0 - 0.2 [facility] MCH RBC QN AUTO 31.2pg Normal [id number] 25 - 33 C [facility] HGB BLD MCNC 9.6g/dL Below low normal [id number] 13.5 - 18 [facility] EOSINOPHIL NFR BLD AUTO 4.6% Normal [id number] 0 - 6 [facility] MCV RBC AUTO 93.8fL Normal [id number] 78 - [facility] NFR BLD AUTO 69.2% Normal [id number] 44 - 74 [facility] MONOCYTES NFR BLD AUTO 10.6% Normal [id number] 2 - 12 [facility] WBC NO. BLD AUTO 5.9K/uL Normal [id number] 4 - 10.5 [facility] DIFFERENTIAL TYPE AUTOMATED Normal [id number] [facility] RBC NO. BLD AUTO 3.08M/uL Below low normal [id number] 4.7 - 6 [facility] LYMPHOCYTES NO. BLD AUTO 0.8K/uL Below low normal [id number] 1 - 3.2 [facility] EOSINOPHIL NO. BLD AUTO 0.3K/uL Normal [id number] 0 - 0.5 [facility] NEUTROPHILS NO. BLD AUTO 4.1K/uL Normal [id number] 1.8 - 7.8 [facility] BLD GP AB SCN SERPL QL Normal [id number] [facility] BLOOD BANK CMNT PATIENT-IMP Normal [id number] [facility] ABO+RH GP BLD Normal [id number] [facility] GLUCOSE BLDC GLUCOMTR MCNC 117mg/dL Normal [id number] 70 - 199 [facility] PHOSPHATE SERPL MCNC 3.8mg/dL Normal [id number] 2.5 - 4.5 [facility] INR PPP 1.1 Normal [id number] 0.8 - 1.1 [facility] PT TIME PPP 13.4sec Above high normal [id number] 10.5 - 13.3 [facility] PMV BLD AUTO 8.7fL Normal [id number] 7.4 - 11.4 [facility] PLATELET NO. BLD AUTO 68K/uL Below low normal [id number] 150 - 450 [facility] NEUTROPHILS NFR BLD AUTO 59.4% Normal [id number] 44 - 74 [facility] MONOCYTES NO. BLD AUTO 0.5K/uL Normal [id number] 0 - 0.8 [facility] BASOPHILS IN BLOOD BY AUTOMATED COUNT 0K/uL Normal [id number] 0 - 0.2 [facility] RBC NO. BLD AUTO 2.5M/uL Below low normal [id number] 4.7 - 6 [facility] LYMPHOCYTES NO. BLD AUTO 0.5K/uL Below low normal [id number] 1 - 3.2 [facility] HCT VFR BLD AUTO 23.5% Below low normal [id number] 40 - 54 [facility] WBC NO. BLD AUTO 3K/uL Below low normal [id number] 4 - 10.5 [facility] RDW RBC AUTO RTO 18.8% Above high normal [id number] 12.1 - 17.7 [facility] MCV RBC AUTO 93.9fL Normal [id number] 78 - 100 [facility] LYMPHOCYTES NFR BLD AUTO 17.3% Below low normal [id number] 20 - 48 [facility] BASOPHILS NFR BLD AUTO 1.3% Normal [id number] 0 - 2 [facility] DIFFERENTIAL TYPE AUTOMATED Normal [id number] [facility] EOSINOPHIL NO. BLD AUTO 0.2K/uL Normal [id number] 0 - 0.5 [facility] MCH RBC QN AUTO 31.2pg Normal [id number] 25 - 33 C [facility] MCHC RBC AUTO MCNC 33.2g/dL Normal [id number] 32 - 36 [facility] HGB BLD MCNC 7.8g/dL Below low normal [id number] 13.5 - 18 [facility] MONOCYTES NFR BLD AUTO 16.1% Above high normal [id number] 2 - 12 [facility] EOSINOPHIL NFR BLD AUTO 5.9% Normal [id number] 0 - 6 [facility] NEUTROPHILS NO. BLD AUTO 1.8K/uL Normal [id number] 1.8 - 7.8 [facility] BUN SERPL MCNC 17mg/dL Normal [id number] 9 - 20 [facility] ALP SERPL-CCNC 172U/L Above high normal [id number] 34 - 104 [facility] CREAT SERPL MCNC 1.4mg/dL Above high normal [id number] 0.7 - 1.3 [facility] ALT SERPL CCNC 18U/L Normal [id number] 7 - 52 [facility] SODIUM SERPL SCNC 139mmol/L Normal [id number] 135 - 145 [facility] POTASSIUM SERPL SCNC 4.3mmol/L Normal [id number] 3.5 - 5.1 [facility] GLUCOSE SERPL MCNC 105mg/dL Normal [id number] 70 - 199 [facility] AST SERPL CCNC 51U/L Above high normal [id number] 5 - 40 [facility] HCO3 SER SCNC 24mmol/L Normal [id number] 24 - 32 [facility] CALCIUM SERPL MCNC 8.8mg/dL Normal [id number] 8.4 - 10.2 [facility] BILIRUB SERPL MCNC 1.3mg/dL Above high normal [id number] 0.3 - 1 [facility] ANION GAP SERPL SCNC 10mmol/L Normal [id number] 5 - 14 [facility] Glomerular filtration rate/1.73 sq M. predicted 59 Below low normal [id number] 60 - [facility] CHLORIDE SERPL SCNC 105mmol/L Normal [id number] 98 - 107 [facility] PROT SERPL MCNC 5.9g/dL Below low normal [id number] 6 .4 - 8.5 [facility] ALBUMIN SERPL BCG MCNC 3.6g/dL Normal [id number] 3.5 - 5 [facility] MAGNESIUM SERPL MCNC 2mg/dL Normal [id number] 1.7 - 2.8 [facility] GLUCOSE BLDC GLUCOMTR MCNC 136mg/dL Normal [id number] 70 - 199 [facility] GLUCOSE BLDC GLUCOMTR MCNC 155mg/dL Normal [id number] 70 - 199 [facility] GLUCOSE BLDC GLUCOMTR MCNC 91mg/dL Normal [id number] 70 - 199 [facility] GLUCOSE BLDC GLUCOMTR MCNC 94mg/dL Normal [id number] 70 - 199 [facility] PT TIME PPP 13.4sec Above high normal [id number] 10.5 - 13.3 [facility] INR PPP 1.1 Normal [id number] 0.8 - 1.1 [facility] MCHC RBC AUTO MCNC 33.2g/dL Normal [id number] 32 - 36 [facility] BASOPHILS NFR BLD AUTO 1.4% Normal [id number] 0 - 2 [facility] RDW RBC AUTO RTO 19.3% Above high normal [id number] 12.1 - 17.7 [facility] MONOCYTES NFR BLD AUTO 12.9% Above high normal [id number] 2 - 12 [facility] PMV BLD AUTO 10.3fL Normal [id number] 7.4 - 11.4 [facility] EOSINOPHIL NO. BLD AUTO 0.2K/uL Normal [id number] 0 - 0.5 [facility] PLATELET NO. BLD AUTO 82K/uL Below low normal [id number] 150 - 450 [facility] RBC NO. BLD AUTO 2.8M/uL Below low normal [id number] 4.7 - 6 [facility] WBC NO. BLD AUTO 4.4K/uL Normal [id number] 4 - 10.5 [facility] MCH RBC QN AUTO 31.2pg Normal [id number] 25 - 33 C [facility] LYMPHOCYTES NFR BLD AUTO 19.1% Below low normal [id number] 20 - 48 [facility] EOSINOPHIL NFR BLD AUTO 4.4% Normal [id number] 0 - 6 [facility] HGB BLD MCNC 8.7g/dL Below low normal [id number] 13.5 - 18 [facility] BASOPHILS IN BLOOD BY AUTOMATED COUNT 0.1K/uL Normal [id number] 0 - 0.2 [facility] MCV RBC AUTO 94.2fL Normal [id number] 78 - 100 [facility] HCT VFR BLD AUTO 26.4% Below low normal [id number] 40 - 54 [facility] NEUTROPHILS NO. BLD AUTO 2.7K/uL Normal [id number] 1.8 - 7.8 [facility] DIFFERENTIAL TYPE AUTOMATED Normal [id number] [facility] MONOCYTES NO. BLD AUTO 0.6K/uL Normal [id number] 0 - 0.8 [facility] LYMPHOCYTES NO. BLD AUTO 0.8K/uL Below low normal [id number] 1 - 3.2 [facility] NEUTROPHILS NFR BLD AUTO 62.2% Normal [id number] 44 - 74 [facility] PHOSPHATE SERPL MCNC 3.8mg/dL Normal [id number] 2.5 - 4.5 [facility] SODIUM SERPL SCNC 139mmol/L Normal [id number] 135 - 145 [facility] ALP SERPL-CCNC 180U/L Above high normal [id number] 34 - 104 [facility] GLUCOSE SERPL MCNC 89mg/dL Normal [id number] 70 - 199 [facility] HCO3 SER SCNC 26mmol/L Normal [id number] 24 - 32 [facility] BILIRUB SERPL MCNC 1.6mg/dL Above high normal [id number] 0.3 - 1 [facility] PROT SERPL MCNC 6.3g/dL Below low normal [id number] 6 .4 - 8.5 [facility] ANION GAP SERPL SCNC 10mmol/L Normal [id number] 5 - 14 [facility] ALT SERPL CCNC 18U/L Normal [id number] 7 - 52 [facility] Glomerular filtration rate/1.73 sq M. predicted 71 Normal [id number] 60 - [facility] POTASSIUM SERPL SCNC 4.5mmol/L Normal [id number] 3.5 - 5.1 [facility] CREAT SERPL MCNC 1.2mg/dL Normal [id number] 0.7 - 1.3 [facility] ALBUMIN SERPL BCG MCNC 3.7g/dL Normal [id number] 3.5 - 5 [facility] CALCIUM SERPL MCNC 9.2mg/dL Normal [id number] 8.4 - 10.2 [facility] AST SERPL CCNC 60U/L Above high normal [id number] 5 - 40 [facility] CHLORIDE SERPL SCNC 103mmol/L Normal [id number] 98 - 107 [facility] BUN SERPL MCNC 18mg/dL Normal [id number] 9 - 20 [facility] MAGNESIUM SERPL MCNC 1.5mg/dL Below low normal [id number] 1.7 - 2.8 [facility] HCT VFR BLD AUTO 24% Below low normal [id number] 40 - 54 [facility] HGB BLD MCNC 7.9g/dL Below low normal [id number] 13.5 - 18 [facility] GLUCOSE BLDC GLUCOMTR MCNC 78mg/dL Normal [id number] 70 - 199 [facility] HCT VFR BLD AUTO 25.6% Below low normal [id number] 40 - 54 [facility] HGB BLD MCNC 8.4g/dL Below low normal [id number] 13.5 - 18 [facility] GLUCOSE BLDC GLUCOMTR MCNC 105mg/dL Normal [id number] 70 - 199 [facility] GLUCOSE BLDC GLUCOMTR MCNC 81mg/dL Normal [id number] 70 - 199 [facility] GLUCOSE BLDC GLUCOMTR MCNC 98mg/dL Normal [id number] 70 - 199 [facility] HCT VFR BLD AUTO 23% Below low normal [id number] 40 - 54 [facility] HGB BLD MCNC 7.6g/dL Below low normal [id number] 13.5 - 18 [facility] AMMONIA PLAS SCNC 67mcmol/L Above high normal [id number] 1 5 - 45 [facility] HCT VFR BLD AUTO 23.3% Below low normal [id number] 40 - 54 [facility] MCHC RBC AUTO MCNC 33.5g/dL Normal [id number] 32 - 36 [facility] RDW RBC AUTO RTO 19.5% Above high normal [id number] 12.1 - 17.7 [facility] PLATELET NO. BLD AUTO 59K/uL Below low normal [id number] 150 - 450 [facility] NEUTROPHILS NFR BLD AUTO 55.7% Normal [id number] 44 - 74 [facility] DIFFERENTIAL TYPE AUTOMATED Normal [id number] [facility] EOSINOPHIL NO. BLD AUTO 0.2K/uL Normal [id number] 0 - 0.5 [facility] HGB BLD MCNC 7.8g/dL Below low normal [id number] 13.5 - 18 [facility] MCH RBC QN AUTO 31.1pg Normal [id number] 25 - 33 C [facility] NEUTROPHILS NO. BLD AUTO 1.5K/uL Below low normal [id number] 1.8 - 7.8 [facility] LYMPHOCYTES NO. BLD AUTO 0.6K/uL Below low normal [id number] 1 - 3.2 [facility] PMV BLD AUTO 9.1fL Normal [id number] 7.4 - 11.4 [facility] BASOPHILS NFR BLD AUTO 2.2% Above high normal [id number] 0 - 2 [facility] LYMPHOCYTES NFR BLD AUTO 22.6% Normal [id number] 20 - 48 [facility] RBC NO. BLD AUTO 2.5M/uL Below low normal [id number] 4.7 - 6 [facility] EOSINOPHIL NFR BLD AUTO 5.4% Normal 0 - 6 [facility] MONOCYTES NFR BLD AUTO 14.1% Above high normal [id number] 2 - 12 [facility] MONOCYTES NO. BLD AUTO 0.4K/uL Normal 0 - 0.8 [facility] MCV RBC AUTO 92.9fL Normal [id number] 78 - 100 [facility] WBC NO. BLD AUTO 2.8K/uL Below low normal 4 - 10.5 [facility] BASOPHILS IN BLOOD BY AUTOMATED COUNT 0.1K/uL Normal 0 - 0.2 [facility] MAGNESIUM SERPL MCNC 1.9mg/dL Normal 1.7 - 2.8 [facility] APTT TIME PPP 32sec Normal 25 - 37 [facility] PT TIME PPP 13.2sec Normal 10.5 - 13.3 [facility] INR PPP 1.1 Normal 0.8 - 1.1 [facility] PHOSPHATE SERPL MCNC 3.9mg/dL Normal 2.5 - 4.5 [facility] BILIRUB SERPL MCNC 1.3mg/dL Above high normal 0.3 - 1 [facility] GLUCOSE SERPL MCNC 105mg/dL Normal 70 - 199 [facility] Glomerular filtration rate/1.73 sq M. predicted 65 Normal 60 - [facility] BUN SERPL MCNC 25mg/dL Above high normal 9 - 20 [facility] AST SERPL CCNC 56U/L Above high normal 5 - 40 [facility] POTASSIUM SERPL SCNC 3.8mmol/L Normal 3.5 - 5.1 [facility] CALCIUM SERPL MCNC 8.6mg/dL Normal 8.4 - 10.2 [facility] ANION GAP SERPL SC[facility] 10mmol/L Normal 5 - 14 [facility] ALP SERPL-[facility]NC 171U/L Above high normal 34 - 104 [facility] CHLORIDE SERPL [facility] 104mmol/L Normal [id number] 98 - 107 [facility] ALT SERPL [facility] 14U/L Normal [id number] 7 - 52 [facility] SODIUM SERPL [facility] 137mmol/L Normal [id number] 135 - 145 [facility] CREAT SERPL [facility] 1.3mg/dL Normal [id number] 0.7 - 1.3 [facility] ALBUMIN SERPL BCG MCNC 3.5g/dL Normal [id number] 3.5 - 5 [facility] PROT SERPL [facility] 5.8g/dL Below low normal [id number] 6 .4 - 8.5 [facility] HCO3 SER SC[facility] 23mmol/L Below low normal [id number] 24 - 3 2 [facility] HCT VFR BLD AUTO 24.1% Below low normal [id number] 40 - 54 [facility] HGB BLD [facility] 8g/dL Below low normal [id number] 13.5 - 18 [facility] GLUCOSE BLDC GLUCOMTR MCNC 87mg/dL Normal [id number] 70 - 199 [facility] GLUCOSE BLDC GLUCOMTR MCNC 105mg/dL Normal [id number] 70 - 199 [facility] HCT VFR BLD AUTO 23.3% Below low normal [id number] 40 - 54 [facility] HGB BLD [facility] 7.8g/dL Below low normal [id number] 13.5 - 18 [facility] TRANS NUM UNITS PACKED RBC Normal [id number] [facility] HCT VFR BLD AUTO 20.1% Below low normal [id number] 40 - 54 [facility] HGB BLD [facility] 6.7g/dL Below low normal [id number] 13.5 - 18 [facility] GLUCOSE BLDC GLUCOMTR MC[facility] 114mg/dL Normal [id number] 70 - 199 [facility] ALT SERPL [facility] 11U/L Normal [id number] 7 - 52 [facility] PROT SERPL [facility] 5.3g/dL Below low normal [id number] 6 .4 - 8.5 [facility] ALBUMIN SERPL BCG MCNC 3.3g/dL Below low normal [id number] 3.5 - 5 [facility] BILIRUB SERPL [facility] 1.3mg/dL Above high normal [id number] 0.3 - 1 [facility] AST SERPL [facility] 49U/L Above high normal [id number] 5 - 40 [facility] ALP SERPL-CCNC 145U/L Above high normal [id number] 34 - 104 [facility] Glomerular filtration rate/1.73 sq M. predicted 65 Normal [id number] 60 - [facility] SODIUM SERPL SCNC 139mmol/L Normal [id number] 135 - 145 [facility] CHLORIDE SERPL SC[facility] 107mmol/L Normal [id number] 98 - 107 [facility] HCO3 SER SCNC 24mmol/L Normal [id number] 24 - 32 [facility] POTASSIUM SERPL SCNC 3.9mmol/L Normal [id number] 3.5 - 5.1 [facility] ANION GAP SERPL SCNC 8mmol/L Normal [id number] 5 - 14 [facility] BUN SERPL [facility] 39mg/dL Above high normal [id number] 9 - 20 [facility] GLUCOSE SERPL MCNC 109mg/dL Normal [id number] 70 - 199 [facility] CREAT SERPL [facility] 1.3mg/dL Normal [id number] 0.7 - 1.3 [facility] CALCIUM SERPL [facility] 8.2mg/dL Below low normal [id number] 8.4 - 10.2 [facility] PHOSPHATE SERPL [facility] 3.4mg/dL Normal [id number] 2.5 - 4.5 [facility] MAGNESIUM SERPL [facility] 1.6mg/dL Below low normal [id number] 1.7 - 2.8 [facility] RDW RBC AUTO RTO 19.5% Above high normal [id number] 12.1 - 17.7 [facility] NEUTROPHILS NO. BLD AUTO 1.5K/uL Below low normal [id number] 1.8 - 7.8 [facility] MCH RBC QN AUTO 31.2pg Normal [id number] 25 - 33 C [facility] HCT VFR BLD AUTO 19.8% Below low normal [id number] 40 - 54 [facility] EOSINOPHIL NFR BLD AUTO 3.6% Normal [id number] 0 - 6 [facility] MONOCYTES NO. BLD AUTO 0.3K/uL Normal [id number] 0 - 0.8 [facility] HGB BLD [facility] 6.5g/dL Below low normal [id number] 13.5 - 18 [facility] PMV BLD AUTO 9.6fL Normal [id number] 7.4 - 11.4 [facility] BASOPHILS NFR BLD AUTO 1.2% Normal [id number] 0 - 2 [facility] DIFFERENTIAL TYPE AUTOMATED Normal [id number] [facility] RBC NO. BLD AUTO 2.08M/uL Below low normal [id number] 4.7 - 6 [facility] NEUTROPHILS NFR BLD AUTO 59.6% Normal [id number] 44 - 74 [facility] LYMPHOCYTES NFR BLD AUTO 23.2% Normal [id number] 20 - 48 [facility] MCHC RBC AUTO MCNC 32.8g/dL Normal [id number] 32 - 36 [facility] MCV RBC AUTO 95.3fL Normal [id number] 78 - 100 [facility] MONOCYTES NFR BLD AUTO 12.4% Above high normal [id number] 2 - 12 [facility] PLATELET NO. BLD AUTO 54K/uL Below low normal [id number] 150 - 450 [facility] LYMPHOCYTES NO. BLD AUTO 0.6K/uL Below low normal [id number] 1 - 3.2 [facility] WBC NO. BLD AUTO 2.5K/uL Below low normal [id number] 4 - 10.5 [facility] BASOPHILS IN BLOOD BY AUTOMATED COUNT 0K/uL Normal [id number] 0 - 0.2 [facility] EOSINOPHIL NO. BLD AUTO 0.1K/uL Normal [id number] 0 - 0.5 [facility] HGB BLD [facility] 7.5g/dL Below low normal [id number] 13.5 - 18 [facility] HCT VFR BLD AUTO 22.9% Below low normal [id number] 40 - 54 [facility] GLUCOSE BLDC GLUCOMTR [facility] 149mg/dL Normal [id number] 70 - 199 [facility] Opiates Ur Ql Scn NEGATIVE Normal - [facility] Barbiturates Ur Ql Scn NEGATIVE Normal - [facility] Oxycodone Ur Ql Scn NEGATIVE Normal - [facility] BZE Ur Ql Scn NEGATIVE Normal - [facility] Cannabinoids Ur Ql Scn NEGATIVE Normal - [facility] PCP Ur Ql Scn NEGATIVE Normal - [facility] Amphet Ur Ql Scn NEGATIVE Normal - [facility] GLUCOSE BLDC GLUCOMTR [facility] 127mg/dL Normal [id number] 70 - 199 [facility] MAGNESIUM SERPL [facility] 1.8mg/dL Normal [id number] 1.7 - 2.8 [facility] PHOSPHATE SERPL [facility]NC 3.2mg/dL Normal [id number] 2.5 - 4.5 [facility] Glomerular filtration rate/1.73 sq M. predicted 55 Below low normal [id number] 60 - [facility] CALCIUM SERPL [facility] 8mg/dL Below low normal [id number] 0 8.4 - 10.2 [facility] PROT SERPL [facility] 5.5g/dL Below low normal [id number] 6 .4 - 8.5 [facility] GLUCOSE SERPL [facility]NC 126mg/dL Normal [id number] 70 - 199 [facility] ALP SERPL-CCNC 142U/L Above high normal [id number] 34 - 104 [facility] HCO3 SER SCNC 20mmol/L Below low normal [id number] 24 - 3 2 [facility] SODIUM SERPL SCNC 140mmol/L Normal [id number] 135 - 145 [facility] BUN SERPL [facility] 47mg/dL Above high normal [id number] 9 - 20 [facility] ALT SERPL [facility] 11U/L Normal [id number] 7 - 52 [facility] CREAT SERPL [facility] 1.5mg/dL Above high normal [id number] 0.7 - 1.3 [facility] POTASSIUM SERPL SCNC 4.4mmol/L Normal [id number] 3.5 - 5.1 [facility] AST SERPL [facility] 35U/L Normal [id number] 5 - 40 [facility] CHLORIDE SERPL SCNC 109mmol/L Above high normal [id number] 98 - 107 [facility] ANION GAP SERPL SCNC 11mmol/L Normal [id number] 5 - 14 [facility] BILIRUB SERPL [facility] 1.8mg/dL Above high normal [id number] 0.3 - 1 [facility] ALBUMIN SERPL BCG [facility] 3.4g/dL Below low normal [id number] 3.5 - 5 [facility] PLATELET NO. BLD AUTO 48K/uL Below low normal [id number] 150 - 450 [facility] BASOPHILS IN BLOOD BY AUTOMATED COUNT 0K/uL Normal [id number] 0 - 0.2 [facility] EOSINOPHIL NO. BLD AUTO 0.1K/uL Normal [id number] 0 - 0.5 [facility] NEUTROPHILS NO. BLD AUTO 2.3K/uL Normal [id number] 1.8 - 7.8 [facility] MCHC RBC AUTO MCNC 33.3g/dL Normal [id number] 32 - 36 [facility] NEUTROPHILS NFR BLD AUTO 68.1% Normal [id number] 44 - 74 [facility] MONOCYTES NO. BLD AUTO 0.4K/uL Normal [id number] 0 - 0.8 [facility] WBC NO. BLD AUTO 3.3K/uL Below low normal [id number] 4 - 10.5 [facility] LYMPHOCYTES NO. BLD AUTO 0.5K/uL Below low normal [id number] 1 - 3.2 [facility] LYMPHOCYTES NFR BLD AUTO 15.6% Below low normal [id number] 20 - 48 [facility] MCH RBC QN AUTO 31.4pg Normal [id number] 25 - 33 C [facility] RBC NO. BLD AUTO 2.28M/uL Below low normal [id number] 4.7 - 6 [facility] HGB BLD [facility] 7.2g/dL Below low normal [id number] 13.5 - 18 [facility] MCV RBC AUTO 94.3fL Normal [id number] 78 - 100 [facility] PMV BLD AUTO 9.1fL Normal [id number] 7.4 - 11.4 [facility] EOSINOPHIL NFR BLD AUTO 2.4% Normal [id number] 0 - 6 [facility] HCT VFR BLD AUTO 21.5% Below low normal [id number] 40 - 54 [facility] BASOPHILS NFR BLD AUTO 0.9% Normal [id number] 0 - 2 [facility] DIFFERENTIAL TYPE AUTOMATED Normal [id number] [facility] RDW RBC AUTO RTO 19.7% Above high normal [id number] 12.1 - 17.7 [facility] MONOCYTES NFR BLD AUTO 13% Above high normal [id number] 2 - 12 [facility] GLUCOSE BLDC GLUCOMTR MCNC 126mg/dL Normal [id number] 70 - 199 [facility] WBC NO. BLD AUTO 4.4K/uL Normal [id number] 4 - 10.5 [facility] BASOPHILS IN BLOOD BY AUTOMATED COUNT 0K/uL Normal [id number] 0 - 0.2 [facility] MONOCYTES NO. BLD AUTO 0.5K/uL Normal [id number] 0 - 0.8 [facility] NEUTROPHILS NFR BLD AUTO 64.5% Normal [id number] 44 - 74 [facility] RDW RBC AUTO RTO 19.4% Above high normal [id number] 12.1 - 17.7 [facility] NEUTROPHILS NO. BLD AUTO 2.8K/uL Normal [id number] 1.8 - 7.8 [facility] PMV BLD AUTO 9fL Normal [id number] 7.4 - 11.4 [facility] MONOCYTES NFR BLD AUTO 12.1% Above high normal [id number] 2 - 12 [facility] BASOPHILS NFR BLD AUTO 0.9% Normal [id number] 0 - 2 [facility] PLATELET NO. BLD AUTO 61K/uL Below low normal [id number] 150 - 450 [facility] LYMPHOCYTES NO. BLD AUTO 0.9K/uL Below low normal [id number] 1 - 3.2 [facility] DIFFERENTIAL TYPE AUTOMATED Normal [id number] [facility] EOSINOPHIL NFR BLD AUTO 2.5% Normal [id number] 0 - 6 [facility] MCH RBC QN AUTO 31.6pg Normal [id number] 25 - 33 C [facility] LYMPHOCYTES NFR BLD AUTO 20% Normal [id number] 20 - 48 [facility] HGB BLD [facility] 7.9g/dL Below low normal [id number] 13.5 - 18 [facility] MCV RBC AUTO 94.4fL Normal [id number] 78 - 100 [facility] EOSINOPHIL NO. BLD AUTO 0.1K/uL Normal [id number] 0 - 0.5 [facility] MCHC RBC AUTO MCNC 33.4g/dL Normal [id number] 32 - 36 [facility] RBC NO. BLD AUTO 2.49M/uL Below low normal [id number] 4.7 - 6 [facility] HCT VFR BLD AUTO 23.5% Below low normal [id number] 40 - 54 [facility] MAGNESIUM SERPL [facility]NC 1.8mg/dL Normal [id number] 1.7 - 2.8 [facility] VIT B12 SER MCNC 319pg/mL Normal [id number] 180 - 914 [facility] FOLATE SERPL [facility] 8.2ng/mL Normal [id number] 3 - [facility] IRON SERPL [facility]NC 50mcg/dL Normal [id number] 49 - 181 C [facility] UIBC SERPL [facility] 358ug/dL Above high normal [id number] 155 - 355 [facility] IRON SATN MFR SERPL 12% Below low normal [id number] 20 - 45 [facility] TIBC SERPL [facility] 408ug/dL Normal [id number] 250 - 450 [facility] Hgb A1c MFr Bld HPLC 4.3% Normal [id number] - 5.7 [facility] FERRITIN SERPL [facility] 23ng/mL Normal [id number] 20 - 250 [facility] PHOSPHATE SERPL [facility] 3.6mg/dL Normal [id number] 2.5 - 4.5 [facility] BUN SERPL [facility] 48mg/dL Above high normal [id number] 9 - 20 [facility] Glomerular filtration rate/1.73 sq M. predicted 47 Below low normal [id number] 60 - [facility] ALP SERPL-CCNC 151U/L Above high normal [id number] 34 - 104 [facility] CALCIUM SERPL MCNC 8.3mg/dL Below low normal [id number] 6 8.4 - 10.2 [facility] HCO3 SER SCNC 22mmol/L Below low normal [id number] 24 - 3 2 [facility] ANION GAP SERPL SCNC 10mmol/L Normal [id number] 5 - 14 [facility] SODIUM SERPL SCNC 138mmol/L Normal [id number] 135 - 145 [facility] PROT SERPL MCNC 5.8g/dL Below low normal [id number] 6 .4 - 8.5 [facility] POTASSIUM SERPL SCNC 4.2mmol/L Normal [id number] 3.5 - 5.1 [facility] ALT SERPL CC[facility] 12U/L Normal [id number] 7 - 52 [facility] ALBUMIN SERPL BCG MCNC 3.6g/dL Normal [id number] 3.5 - 5 [facility] CREAT SERPL MCNC 1.7mg/dL Above high normal [id number] 0.7 - 1.3 [facility] AST SERPL CCNC 36U/L Normal [id number] 5 - 40 [facility] BILIRUB SERPL MCNC 1.9mg/dL Above high normal [id number] 0.3 - 1 [facility] GLUCOSE SERPL MCNC 106mg/dL Normal [id number] 70 - 199 [facility] CHLORIDE SERPL SCNC 106mmol/L Normal [id number] 98 - 107 [facility] HGB BLD MCNC 7.3g/dL Below low normal [id number] 13.5 - 18 [facility] HCT VFR BLD AUTO 22% Below low normal [id number] 40 - 54 [facility] GLUCOSE BLDC GLUCOMTR MCNC 146mg/dL Normal [id number] 70 - 199 [facility] AMMONIA PLAS SCNC 51mcmol/L Above high normal [id number] 1 5 - 45 [facility] GLUCOSE BLDC GLUCOMTR MCNC 96mg/dL Normal [id number] 70 - 199 [facility] TRANS NUM UNITS PACKED RBC Normal [id number] [facility] LIPASE SERPL CCNC 48U/L Normal [id number] 11 - 82 [facility] INR PPP 1.5 Above high normal 0.8 - 1.1 [facility] PT TIME PPP 17.4sec Above high normal 10.5 - 13.3 [facility] AMYLASE SERPL CCNC 35U/L Normal 29 - 103 [facility] ALT SERPL CC[facility] 14U/L Normal 7 - 52 [facility] ALP SERPL-CCNC 167U/L Above high normal 34 - 104 [facility] AST SERPL CCNC 44U/L Above high normal 5 - 40 [facility] LDH SERPL L TO P CCNC 184U/L Normal 125 - 220 [facility] APTT TIME PPP 37sec Normal 25 - 37 [facility] BILIRUB SERPL MCNC 1.5mg/dL Above high normal 0.3 - 1 [facility] BILIRUB DIRECT SERPL MCNC 0.7mg/dL Above high normal 0 - 0.2 [facility] POTASSIUM SERPL SCNC 4.5mmol/L Normal 3.5 - 5.1 [facility] ANION GAP SERPL SCNC 14mmol/L Normal 5 - 14 [facility] CALCIUM SERPL MCNC 8.7mg/dL Normal 8.4 - 10.2 [facility] BUN SERPL MCNC 47mg/dL Above high normal 9 - 20 [facility] Glomerular filtration rate/1.73 sq M. predicted 51 Below low normal 60 - [facility] SODIUM SERPL SCNC 138mmol/L Normal 135 - 145 [facility] CREAT SERPL MCNC 1.6mg/dL Above high normal 0.7 - 1.3 [facility] CHLORIDE SERPL SCNC 105mmol/L Normal 98 - 107 [facility] GLUCOSE SERPL MCNC 108mg/dL Normal 70 - 199 [facility] HCO3 SER SCNC 19mmol/L Below low normal 24 - 3 2 [facility] ETHANOL SERPL MCNC 17mg/dL Above high normal 0 - 10 [facility] MAGNESIUM SERPL MCNC 1mg/dL Below low normal 1.7 - 2.8 [facility] PLATELET NO. BLD AUTO 66K/uL Below low normal [id number] 150 - 450 [facility] PMV BLD AUTO 9.7fL Normal [id number] 7.4 - 11.4 [facility] DIFFERENTIAL TYPE MANUAL Normal [id number] [facility] MACROCYTES PRESENT Normal [id number] [facility] BASOPHILS NFR BLD MANUAL 1% Normal [id number] 0 - 2 [facility] MICROCYTES OCCASIONAL Normal [facility] ESME EOSINOPHIL NFR BLD MANUAL 3% Normal [id number] 0 - 6 [facility] MONOCYTES NFR BLD MANUAL 10% Normal [id number] 2 - 12 [facility] STOMATOCYTES PRESENT Normal [id number] [facility] POLYS NFR BLD MANUAL 75% Above high normal 44 - 74 [facility] TEARDROP CELLS OCCASIONAL Normal [id number] C [facility] HYPOCHROMIA PRESENT Normal [id number] [facility] POLYCHROMASIA PRESENT Normal [id number] [facility] LYMPHOCYTES NFR BLD MANUAL 11% Below low normal [id number] 20 - 48 [facility] HCT VFR BLD AUTO 20.4% Below low normal [id number] 40 - 54 [facility] HGB BLD MCNC 6.7g/dL Below low normal [id number] 13.5 - 18 [facility] MCV RBC AUTO 97.6fL Normal [id number] 78 - 100 [facility] RBC NO. BLD AUTO 2.09M/uL Below low normal [id number] 4.7 - 6 [facility] WBC NO. BLD AUTO 4.9K/uL Normal [id number] 4 - 10.5 [facility] RDW RBC AUTO RTO 19.7% Above high normal [id number] 12.1 - 17.7 [facility] MCHC RBC AUTO MCNC 32.6g/dL Normal [id number] 32 - 36 [facility] MCH RBC QN AUTO 31.8pg Normal [id number] 25 - 33 C [facility] MONOCYTES NO. BLD AUTO 0.5K/uL Normal [id number] 0 - 0.8 [facility] RDW RBC AUTO RTO 20.8% Above high normal [id number] 12.1 - 17.7 [facility] MONOCYTES NFR BLD AUTO 7.9% Normal [id number] 2 - 12 [facility] HCT VFR BLD AUTO 32.9% Below low normal [id number] 40 - 54 [facility] MCHC RBC AUTO MCNC 33g/dL Normal [id number] 32 - 36 [facility] NEUTROPHILS NO. BLD AUTO 4.7K/uL Normal [id number] 1.8 - 7.8 [facility] RBC NO. BLD AUTO 3.66M/uL Below low normal [id number] 4.7 - 6 [facility] EOSINOPHIL NFR BLD AUTO 3% Normal [id number] 0 - 6 [facility] LYMPHOCYTES NFR BLD AUTO 13.2% Below low normal [id number] 20 - 48 [facility] PMV BLD AUTO 8fL Normal [id number] 7.4 - 11.4 [facility] PLATELET NO. BLD AUTO 113K/uL Below low normal [id number] 150 - 450 [facility] BASOPHILS NFR BLD AUTO 1.3% Normal [id number] 0 - 2 [facility] EOSINOPHIL NO. BLD AUTO 0.2K/uL Normal [id number] 0 - 0.5 [facility] LYMPHOCYTES NO. BLD AUTO 0.8K/uL Below low normal [id number] 1 - 3.2 [facility] NEUTROPHILS NFR BLD AUTO 74.6% Above high normal [id number] 44 - 74 [facility] MCV RBC AUTO 90fL Normal [id number] 78 - 100 [facility] WBC NO. BLD AUTO 6.3K/uL Normal [id number] 4 - 10.5 [facility] HGB BLD MCNC 10.9g/dL Below low normal [id number] 13.5 - 18 [facility] MCH RBC QN AUTO 29.7pg Normal [id number] 25 - 33 C [facility] DIFFERENTIAL TYPE AUTOMATED Normal [id number] [facility] BASOPHILS IN BLOOD BY AUTOMATED COUNT 0.1K/uL Normal [id number] 0 - 0.2 [facility] RBC NO. BLD AUTO 3.6M/uL Below low normal [id number] 4.7 - 6 [facility] BASOPHILS IN BLOOD BY AUTOMATED COUNT 0.1K/uL Normal [id number] 0 - 0.2 [facility] LYMPHOCYTES NO. BLD AUTO 1.6K/uL Normal [id number] 1 - 3.2 [facility] MONOCYTES NO. BLD AUTO 0.8K/uL Normal 0 - 0.8 [facility] EOSINOPHIL NO. BLD AUTO 0.6K/uL Above high normal [id number] 0 - 0.5 [facility] EOSINOPHIL NFR BLD AUTO 6.3% Above high normal 0 - 6 [facility] LYMPHOCYTES NFR BLD AUTO 17.5% Below low normal [id number] 20 - 48 [facility] DIFFERENTIAL TYPE AUTOMATED Normal [facility] MCV RBC AUTO 85.3fL Normal 78 - 100 [facility] MCHC RBC AUTO MCNC 33.4g/dL Normal 32 - 36 [facility] PLATELET NO. BLD AUTO 172K/uL Normal [id number] 150 - 450 [facility] RDW RBC AUTO RTO 17.6% Normal 12.1 - 17.7 [facility] MCH RBC QN AUTO 28.5pg Normal 25 - 33 C [facility]S WBC NO. BLD AUTO 9.4K/uL Normal [id number] 4 - 10.5 [facility] HGB BLD MCNC 10.3g/dL Below low normal [id number] 13.5 - 18 [facility] BASOPHILS NFR BLD AUTO 1.2% Normal [id number] 0 - 2 [facility] NEUTROPHILS NO. BLD AUTO 6.3K/uL Normal [id number] 1.8 - 7.8 [facility] HCT VFR BLD AUTO 30.7% Below low normal 40 - 54 [facility] NEUTROPHILS NFR BLD AUTO 66.9% Normal [id number] 44 - 74 [facility] PMV BLD AUTO 8.9fL Normal [id number] 7.4 - 11.4 [facility] MONOCYTES NFR BLD AUTO 8.1% Normal [id number] 2 - 12 [facility] FERRITIN SERPL MCNC 187ng/mL Normal [id number] 20 - 250 [facility] IRON SERPL MCNC 44mcg/dL Below low normal [id number] 49 - 181 [facility] TIBC SERPL MCNC 420ug/dL Normal [id number] 250 - 450 [facility] IRON SATN MFR SERPL 10% Below low normal [id number] 20 - 45 [facility] UIBC SERPL MCNC 376ug/dL Above high normal [id number] 155 - 355 [facility] CHLORIDE SERPL SCNC 97mmol/L Below low normal [id number] 98 - 107 [facility] ALT SERPL CCNC 39U/L Normal [id number] 7 - 52 [facility] SODIUM SERPL SCNC 138mmol/L Normal [id number] 135 - 145 [facility] Glomerular filtration rate/1.73 sq M. predicted 59 Below low normal [id number] 60 - [facility] GLUCOSE SERPL MCNC 117mg/dL Normal [id number] 70 - 199 [facility] HCO3 SER SCNC 28mmol/L Normal [id number] 24 - 32 [facility] CALCIUM SERPL MCNC 8.9mg/dL Normal [id number] 8.4 - 10.2 [facility] BUN SERPL MCNC 17mg/dL Normal [id number] 9 - 20 [facility] ANION GAP SERPL SCNC 13mmol/L Normal [id number] 5 - 14 [facility] PROT SERPL MCNC 6.7g/dL Normal [id number] 6.4 - 8.5 [facility] ALP SERPL-CCNC 185U/L Above high normal [id number] 34 - 104 [facility] BILIRUB SERPL MCNC 1.2mg/dL Above high normal [id number] 0.3 - 1 [facility] AST SERPL CCNC 67U/L Above high normal [id number] 5 - 40 [facility] ALBUMIN SERPL BCG MCNC 4.2g/dL Normal [id number] 3.5 - 5 [facility] POTASSIUM SERPL SCNC 4.1mmol/L Normal [id number] 3.5 - 5.1 [facility] CREAT SERPL MCNC 1.4mg/dL Above high normal [id number] 0.7 - 1.3 [facility] MAGNESIUM SERPL MCNC 1.9mg/dL Normal [id number] 1.7 - 2.8 [facility] RBC NO. BLD AUTO 3.08M/uL Below low normal [id number] 4.7 - 6 [facility] MCV RBC AUTO 87.4fL Normal [id number] 78 - 100 [facility] HCT VFR BLD AUTO 26.9% Below low normal [id number] 40 - 54 [facility] WBC NO. BLD AUTO 3.7K/uL Below low normal [id number] 4 - 10.5 [facility] PLATELET NO. BLD AUTO 102K/uL Below low normal [id number] 150 - 450 [facility] HGB BLD MCNC 8.9g/dL Below low normal [id number] 13.5 - 18 [facility] MCHC RBC AUTO MCNC 33.2g/dL Normal [id number] 32 - 36 [facility] MCH RBC QN AUTO 29.1pg Normal [id number] 25 - 33 C [facility] PMV BLD AUTO 9.4fL Normal [id number] 7.4 - 11.4 [facility] RDW RBC AUTO RTO 17.7% Normal [id number] 12.1 - 17.7 [facility] CALCIUM SERPL MCNC 8.8mg/dL Normal [id number] 8.4 - 10.2 [facility] HCO3 SER SCNC 23mmol/L Below low normal [id number] 24 - 3 2 [facility] ANION GAP SERPL SCNC 9mmol/L Normal [id number] 5 - 14 [facility] BUN SERPL MCNC 23mg/dL Above high normal [id number] 9 - 20 [facility] SODIUM SERPL SCNC 134mmol/L Below low normal [id number] 135 - 145 [facility] POTASSIUM SERPL SCNC 4.8mmol/L Normal [id number] 3.5 - 5.1 [facility] Glomerular filtration rate/1.73 sq M. predicted 55 Below low normal [id number] 60 - [facility] GLUCOSE SERPL MCNC 167mg/dL Normal [id number] 70 - 199 [facility] CHLORIDE SERPL SCNC 102mmol/L Normal [id number] 98 - 107 [facility] CREAT SERPL [facility] 1.5mg/dL Above high normal [id number] 0.7 - 1.3 [facility] GLUCOSE BLDC GLUCOMTR MCNC 140mg/dL Normal [id number] 70 - 199 [facility] GLUCOSE BLDC GLUCOMTR MCNC 127mg/dL Normal [id number] 70 - 199 [facility] HGB BLD [facility]NC 9.4g/dL Below low normal [id number] 13.5 - 18 [facility] HCT VFR BLD AUTO 28.7% Below low normal [id number] 40 - 54 [facility] GLUCOSE BLDC GLUCOMTR MCNC 97mg/dL Normal [id number] 70 - 199 [facility] GLUCOSE BLDC GLUCOMTR MCNC 98mg/dL Normal [id number] 70 - 199 [facility] TRANS NUM UNITS PACKED RBC Normal [id number] [facility] MAGNESIUM SERPL MCNC 1mg/dL Below low normal [id number] 1.7 - 2.8 [facility] GLUCOSE P FAST SERPL MCNC 68mg/dL Below low normal [id number] 70 - 99 [facility] CALCIUM SERPL MCNC 6.6mg/dL Below low normal 50747317000 7 8.4 - 10.2 [facility] SODIUM SERPL SCNC 142mmol/L Normal [id number] 135 - 145 [facility] CHLORIDE SERPL SCNC 113mmol/L Above high normal [id number] 98 - 107 [facility] BUN SERPL MC[facility] 24mg/dL Above high normal [id number] 9 - 20 [facility] CREAT SERPL [facility] 1.2mg/dL Normal [id number] 0.7 - 1.3 [facility] ANION GAP SERPL SCNC 10mmol/L Normal [id number] 5 - 14 [facility] POTASSIUM SERPL SCNC 3.2mmol/L Below low normal [id number] 3.5 - 5.1 [facility] HCO3 SER SCNC 19mmol/L Below low normal [id number] 24 - 3 2 [facility] Glomerular filtration rate/1.73 sq M. predicted 71 Normal [id number] 60 - [facility] BILIRUB SERPL MCNC 2.1mg/dL Above high normal [id number] 0.3 - 1 [facility] ALBUMIN SERPL BCG MCNC 2.9g/dL Below low normal [id number] 3.5 - 5 [facility] ALP SERPL-CCNC 111U/L Above high normal [id number] 34 - 104 [facility] AST SERPL [facility] 43U/L Above high normal [id number] 5 - 40 [facility] ALBUMIN/GLOB SERPL MRTO 1.6 Normal [id number] [facility] PROT SERPL [facility] 4.7g/dL Below low normal [id number] 6 .4 - 8.5 [facility] BILIRUB DIRECT SERPL MCNC 0.8mg/dL Above high normal [id number] 0 - 0.2 [facility] ALT SERPL [facility] 19U/L Normal [id number] 7 - 52 [facility] WBC NO. BLD AUTO 3.3K/uL Below low normal [id number] 4 - 10.5 [facility] MCHC RBC AUTO MCNC 32.6g/dL Normal [id number] 32 - 36 [facility] MCV RBC AUTO 85.7fL Normal [id number] 78 - 100 [facility] PMV BLD AUTO 8.7fL Normal [id number] 7.4 - 11.4 [facility] MCH RBC QN AUTO 27.9pg Normal [id number] 25 - 33 C [facility] HCT VFR BLD AUTO 24% Below low normal [id number] 40 - 54 [facility] RDW RBC AUTO RTO 17.8% Above high normal [id number] 12.1 - 17.7 [facility] PLATELET NO. BLD AUTO 86K/uL Below low normal [id number] 150 - 450 [facility] HGB BLD [facility] 7.8g/dL Below low normal [id number] 13.5 - 18 [facility] RBC NO. BLD AUTO 2.8M/uL Below low normal [id number] 4.7 - 6 [facility] GLUCOSE BLDC GLUCOMTR MCNC 95mg/dL Normal [id number] 70 - 199 [facility] GLUCOSE BLDC GLUCOMTR MCNC 73mg/dL Normal [id number] 70 - 199 [facility] GLUCOSE BLDC GLUCOMTR MCNC 120mg/dL Normal [id number] 70 - 199 [facility] GLUCOSE BLDC GLUCOMTR MCNC 59mg/dL Below low normal [id number] 70 - 199 [facility] TIBC SERPL MCNC 457ug/dL Above high normal [id number] 250 - 450 [facility] UIBC SERPL MCNC 215ug/dL Normal [id number] 155 - 355 [facility] IRON SATN MFR SERPL 53% Above high normal [id number] 20 - 45 [facility] IRON SERPL MCNC 242mcg/dL Above high normal [id number] 49 - 181 [facility] HGB BLD MCNC 6.9g/dL Below low normal [id number] 13.5 - 18 [facility] HCT VFR BLD AUTO 21.4% Below low normal [id number] 40 - 54 [facility] Hgb A1c MFr Bld HPLC 4.5% Normal [id number] - 5.7 [facility] FOLATE SERPL [facility] 7.5ng/mL Normal [id number] 3 - [facility] VIT B12 SER MCNC 604pg/mL Normal [id number] 180 - 914 [facility] PROT SERPL [facility] 5.9g/dL Below low normal [id number] 6 .4 - 8.5 [facility] AST SERPL CCNC 49U/L Above high normal [id number] 5 - 40 [facility] ALBUMIN/GLOB SERPL MRTO 1.5 Normal [id number] [facility] BILIRUB SERPL MCNC 2.5mg/dL Above high normal [id number] 0.3 - 1 [facility] ALT SERPL [facility] 24U/L Normal [id number] 7 - 52 [facility] ALP SERPL-CCNC 151U/L Above high normal [id number] 34 - 104 [facility] BILIRUB DIRECT SERPL MCNC 0.8mg/dL Above high normal [id number] 0 - 0.2 [facility] ALBUMIN SERPL BCG MCNC 3.5g/dL Normal [id number] 3.5 - 5 [facility] GLUCOSE BLDC GLUCOMTR MCNC 75mg/dL Normal [id number] 70 - 199 [facility] GLUCOSE BLDC GLUCOMTR MCNC 91mg/dL Normal [id number] 70 - 199 [facility] HCT VFR BLDC 22% Below low normal [id number] 40 - 54 [facility] HGB BLDC MCNC 7.5g/dL Below low normal [id number] 13. 5 - 18 [facility] SODIUM BLDC SCNC 136mmol/L Normal [id number] 135 - 145 [facility] POTASSIUM BLDC SCNC 4.7mmol/L Normal [id number] 3.5 - 5.1 [facility] APTT TIME PPP 36sec Normal [id number] 25 - 37 [facility]TT [facility] PT TIME PPP 16.2sec Above high normal [id number] 10.5 - 13.3 [facility] INR PPP 1.4 Above high normal [id number] 0.8 - 1.1 [facility] CHLORIDE SERPL SCNC 102mmol/L Normal [id number] 98 - 107 [facility] BUN SERPL MCNC 32mg/dL Above high normal [id number] 9 - 20 [facility] POTASSIUM SERPL SCNC 4.6mmol/L Normal [id number] 3.5 - 5.1 [facility] GLUCOSE SERPL MCNC 99mg/dL Normal [id number] 70 - 199 [facility] CREAT SERPL MCNC 1.8mg/dL Above high normal [id number] 0.7 - 1.3 [facility] SODIUM SERPL SCNC 138mmol/L Normal [id number] 135 - 145 [facility] CALCIUM SERPL MCNC 9.5mg/dL Normal [id number] 8.4 - 10.2 [facility] HCO3 SER SCNC 24mmol/L Normal [id number] 24 - 32 [facility] Glomerular filtration rate/1.73 sq M. predicted 44 Below low normal [id number] 60 - [facility] ANION GAP SERPL SCNC 12mmol/L Normal [id number] 5 - 14 [facility] MCH RBC QN AUTO 27.1pg Normal 25 - 33 C [facility] HCT VFR BLD AUTO 21.3% Below low normal 40 - 54 [facility] PMV BLD AUTO 9.6fL Normal 7.4 - 11.4 [facility] NEUTROPHILS NO. BLD AUTO 2.8K/uL Normal 1.8 - 7.8 [facility] MCV RBC AUTO 85.6fL Normal 78 - 100 [facility] NEUTROPHILS NFR BLD AUTO 67.1% Normal 44 - 74 [facility] PLATELET NO. BLD AUTO 111K/uL Below low normal 150 - 450 [facility] BASOPHILS NFR BLD AUTO 1.4% Normal 0 - 2 [facility] MCHC RBC AUTO MCNC 31.7g/dL Below low normal 3 2 - 36 [facility] RDW RBC AUTO RTO 20.2% Above high normal 12.1 - 17.7 [facility] LYMPHOCYTES NO. BLD AUTO 0.8K/uL Below low normal 1 - 3.2 [facility] WBC NO. BLD AUTO 4.2K/uL Normal 4 - 10.5 [facility] MONOCYTES NFR BLD AUTO 11.4% Normal 2 - 12 [facility] EOSINOPHIL NFR BLD AUTO 2.4% Normal 0 - 6 [facility] LYMPHOCYTES NFR BLD AUTO 17.7% Below low normal 20 - 48 [facility] DIFFERENTIAL TYPE AUTOMATED Normal [facility] MONOCYTES NO. BLD AUTO 0.5K/uL Normal 0 - 0.8 [facility] HGB BLD MCNC 6.8g/dL Below low normal 13.5 - 18 [facility] EOSINOPHIL NO. BLD AUTO 0.1K/uL Normal 0 - 0.5 [facility] BASOPHILS IN BLOOD BY AUTOMATED COUNT 0.1K/uL Normal 0 - 0.2 [facility] RBC NO. BLD AUTO 2.49M/uL Below low normal 4.7 - 6 [facility] TRANS NUM UNITS PACKED RBC [facility] Normal [facility] BLD GP AB SCN SERPL QL Normal [facility] BLOOD BANK CMNT PATIENT-IMP Normal [facility] IMMATURE GRANULOCYTE, PERCENT 0% Normal 0 - 1 [facility] PMV BLD AUTO 11.5fL Above high normal 7.4 - 11.4 [facility] MONOCYTES NO. BLD AUTO 0.6K/uL Normal 0 - 0.8 [facility] MCV RBC AUTO 90.5fL Normal 78 - [facility] 4.9K/uL Normal 4 - 10.5 [facility] RBC NO. BLD AUTO 2.21M/uL Below low normal 4.7 - 6 [facility] PLATELET NO. BLD AUTO 120K/uL Below low normal 150 - 450 [facility] EOSINOPHIL NO. BLD AUTO 0.1K/uL Normal 0 - 0.5 [facility] LYMPHOCYTES NO. BLD AUTO 0.6K/uL Below low normal 1 - 3.2 [facility] MCH RBC QN AUTO 27.1pg Normal 25 - 33 C [facility] HGB BLD MCNC 6g/dL Below low normal 13. 5 - 18 [facility] RDW RBC AUTO RTO 18.8% Above high normal 12.1 - 17.7 [facility] NEUTROPHILS NFR BLD AUTO 73.4% Normal 44 - 74 [facility] IMMATURE GRANULOCYTE, ABSOLUTE 0k/uL Normal [id number] - 0.1 [facility] HCT VFR BLD AUTO 20% Below low normal 40 - 54 [facility] EOSINOPHIL NFR BLD AUTO 2% Normal 0 - 6 [facility] BASOPHILS IN BLOOD BY AUTOMATED COUNT 0.1K/uL Normal 0 - 0.2 [facility] MCHC RBC AUTO MCNC 30g/dL Below low normal [id number] 3 2 - 36 [facility] BASOPHILS NFR BLD AUTO 1.2% Normal [id number] 0 - 2 [facility] NEUTROPHILS NO. BLD AUTO 3.6K/uL Normal [id number] 1.8 - 7.8 [facility] MONOCYTES NFR BLD AUTO 11.5% Normal [id number] 2 - 12 [facility] LYMPHOCYTES NFR BLD AUTO 11.9% Below low normal [id number] 20 - 48 [facility] CALCIUM SERPL MCNC 9.3mg/dL Normal [id number] 8.4 - 10.2 [facility] ALP SERPL-CCNC 176U/L Above high normal [id number] 34 - 104 [facility] ANION GAP SERPL SCNC 14mmol/L Normal [id number] 5 - 14 [facility] AST SERPL CCNC 65U/L Above high normal [id number] 5 - 40 [facility] Glomerular filtration rate/1.73 sq M. predicted 44 Below low normal [id number] 60 - [facility] ALT SERPL CCNC 28U/L Normal [id number] 7 - 52 [facility] CHLORIDE SERPL SCNC 102mmol/L Normal [id number] 98 - 107 [facility] CREAT SERPL MCNC 1.8mg/dL Above high normal [id number] 0.7 - 1.3 [facility] POTASSIUM SERPL SCNC 4.7mmol/L Normal [id number] 3.5 - 5.1 [facility] ALBUMIN SERPL BCG MCNC 3.9g/dL Normal [id number] 3.5 - 5 [facility] GLUCOSE SERPL MCNC 117mg/dL Normal [id number] 70 - 199 [facility] HCO3 SER SCNC 23mmol/L Below low normal [id number] 24 - 3 2 [facility] SODIUM SERPL SCNC 139mmol/L Normal [id number] 135 - 145 [facility] BUN SERPL MCNC 31mg/dL Above high normal [id number] 9 - 20 [facility] PROT SERPL MCNC 6.2g/dL Below low normal [id number] 6 .4 - 8.5 [facility] BILIRUB SERPL MCNC 1.6mg/dL Above high normal [id number] 0.3 - 1 [facility] FERRITIN SERPL MCNC 19ng/mL Below low normal [id number] 20 - 250 [facility] UIBC SERPL MCNC 432ug/dL Above high normal [id number] 155 - 355 [facility] IRON SATN MFR SERPL 9% Below low normal [id number] 20 - 45 [facility] TIBC SERPL MCNC 475ug/dL Above high normal [id number] 250 - 450 [facility] IRON SERPL MCNC 43mcg/dL Below low normal [id number] 49 - 181 [facility] MCH RBC QN AUTO 28pg Normal [id number] 25 - 33 [facility] EOSINOPHIL NFR BLD AUTO 4.5% Normal [id number] 0 - 6 [facility] PLATELET NO. BLD AUTO 133K/uL Below low normal [id number] 150 - 450 [facility] LYMPHOCYTES NFR BLD AUTO 19.2% Below low normal [id number] 20 - 48 [facility] LYMPHOCYTES NO. BLD AUTO 1K/uL Normal [id number] 1 - 3.2 [facility] HGB BLD MCNC 8.4g/dL Below low normal [id number] 13.5 - 18 [facility] PMV BLD AUTO 8.5fL Normal [id number] 7.4 - 11.4 [facility] RDW RBC AUTO RTO 18% Above high normal [id number] 12.1 - 17.7 [facility] MONOCYTES NO. BLD AUTO 0.7K/uL Normal [id number] 0 - 0.8 [facility] EOSINOPHIL NO. BLD AUTO 0.2K/uL Normal [id number] 0 - 0.5 [facility] BASOPHILS IN BLOOD BY AUTOMATED COUNT 0.1K/uL Normal [id number] 0 - 0.2 [facility] NEUTROPHILS NFR BLD AUTO 61.9% Normal [id number] 44 - 74 [facility] MONOCYTES NFR BLD AUTO 13% Above high normal [id number] 2 - 12 [facility] HCT VFR BLD AUTO 25.7% Below low normal [id number] 40 - 54 [facility] DIFFERENTIAL TYPE AUTOMATED Normal [id number] [facility] MCV RBC AUTO 85.4fL Normal [id number] 78 - [facility] NO[facility] BLD AUTO 5.2K/uL Normal [id number] 4 - 10.5 [facility] MCHC RBC AUTO MCNC 32.8g/dL Normal [id number] 32 - 36 [facility] BASOPHILS NFR BLD AUTO 1.4% Normal [id number] 0 - 2 [facility] NEUTROPHILS NO. BLD AUTO 3.2K/uL Normal [id number] 1.8 - 7.8 [facility] RBC NO. BLD AUTO 3.01M/uL Below low normal [id number] 4.7 - 6 [facility] HCO3 SER SCNC 30mmol/L Normal [id number] 24 - 32 [facility] ANION GAP SERPL SCNC 14mmol/L Normal [id number] 5 - 14 [facility] CHLORIDE SERPL SCNC 95mmol/L Below low normal [id number] 98 - 107 [facility] SODIUM SERPL SCNC 139mmol/L Normal [id number] 135 - 145 [facility] GLUCOSE P FAST SERPL MCNC 132mg/dL Above high normal [id number] 70 - 99 [facility] CREAT SERPL MCNC 1.4mg/dL Above high normal [id number] 0.7 - 1.3 [facility] Glomerular filtration rate/1.73 sq M. predicted 59 Below low normal [id number] 60 - [facility] BUN SERPL MCNC 15mg/dL Normal [id number] 9 - 20 [facility] POTASSIUM SERPL SCNC 3.7mmol/L Normal [id number] 3.5 - 5.1 [facility] CALCIUM SERPL MCNC 8.8mg/dL Normal [id number] 8.4 - 10.2 [facility] Hgb A1c MFr Bld HPLC 5% Normal [id number] - 5.7 [facility] CHOLEST SERPL-MCNC 202mg/dL Above high normal [id number] 0 - 200 [facility] TRIGL SERPL-MCNC 101mg/dL Normal [id number] - 150 [facility] LDLc SerPl Calc-mCnc 124mg/dL Normal [id number] 50 - 130 [facility] HDLC SERPL-MCNC 58mg/dL Normal [id number] 32 - 70 [facility] MONOCYTES NO. BLD AUTO 0.6K/uL Normal [id number] 0 - 0.8 [facility] WBC NO. BLD AUTO 5.6K/uL Normal [id number] 4 - 10.5 [facility] EOSINOPHIL NO. BLD AUTO 0.1K/uL Normal [id number] 0 - 0.5 [facility] MCH RBC QN AUTO 28.7pg Normal [id number] 25 - 33 [facility] HGB BLD MCNC 11g/dL Below low normal [id number] 13.5 - 18 [facility] BASOPHILS NFR BLD AUTO 1% Normal [id number] 0 - 2 [facility] NEUTROPHILS NO. BLD AUTO 4K/uL Normal [id number] 1.8 - 7.8 [facility] RDW RBC AUTO RTO 17.8% Above high normal [id number] 12.1 - 17.7 [facility] LYMPHOCYTES NO. BLD AUTO 0.9K/uL Below low normal [id number] 1 - 3.2 [facility] HCT VFR BLD AUTO 32.7% Below low normal [id number] 40 - 54 [facility] MONOCYTES NFR BLD AUTO 10.2% Normal [id number] 2 - 12 [facility] LYMPHOCYTES NFR BLD AUTO 15.8% Below low normal [id number] 20 - 48 [facility] RBC NO. BLD AUTO 3.82M/uL Below low normal [id number] 4.7 - 6 [facility] PLATELET NO. BLD AUTO 140K/uL Below low normal [id number] 150 - 450 [facility] PMV BLD AUTO 8.2fL Normal [id number] 7.4 - 11.4 [facility] BASOPHILS IN BLOOD BY AUTOMATED COUNT 0.1K/uL Normal [id number] 0 - 0.2 [facility] MCHC RBC AUTO MCNC 33.6g/dL Normal [id number] 32 - 36 [facility] NEUTROPHILS NFR BLD AUTO 70.8% Normal [id number] 44 - 74 [facility] EOSINOPHIL NFR BLD AUTO 2.2% Normal [id number] 0 - 6 [facility] MCV RBC AUTO 85.5fL Normal [id number] 78 - 100 [facility] DIFFERENTIAL TYPE AUTOMATED Normal [id number] [facility] FRUCTOSAMINE 195 Normal [id number] [facility] SM D DIMER DDU PPP EIA MCNC 392ng/mLDDU Above high normal [id number] - 231 [facility] MICROALBUMIN UR MCNC 44.1mg/dL Normal [id number] [facility] MICROALBUMIN/CREAT UR 272.6mg/g Above high normal [id number] - 30 [facility] CREAT UR MCNC 161.8mg/dL Normal [id number] CT [facility] ALBUMIN SERPL BCG MCNC 4g/dL Normal 3.5 - 5 [facility] AST SERPL CCNC 63U/L Above high normal 5 - 40 [facility] PROT SERPL MCNC 6.6g/dL Normal 6.4 - 8.5 [facility] ALBUMIN/GLOB SERPL MRTO 1.5 Normal [facility] BILIRUB SERPL MCNC 2.1mg/dL Above high normal 0.3 - 1 [facility] ALT SERPL CCNC 26U/L Normal 7 - [facility] MCNC 1mg/dL Above high normal 0 - 0.2 [facility] ALP SERPL-CCNC 291U/L Above high normal 34 - 104 [facility] TRANS NUM UNITS PACKED RBC Normal [facility] Troponin I SerPl HS-mCnc 17ng/L Normal 0 - 20 [facility] CREAT SERPL MCNC 1.6mg/dL Above high normal 0.7 - 1.3 [facility] CHLORIDE SERPL SCNC 103mmol/L Normal 98 - 107 [facility] GLUCOSE SERPL MCNC 130mg/dL Normal 70 - 199 [facility] BUN SERPL MCNC 33mg/dL Above high normal 9 - 20 [facility] Glomerular filtration rate/1.73 sq M. predicted 51 Below low normal 60 - [facility] ANION GAP SERPL SCNC 11mmol/L Normal 5 - 14 [facility] CALCIUM SERPL MCNC 9mg/dL Normal 8.4 - 10.2 [facility] SODIUM SERPL SCNC 137mmol/L Normal 135 - 145 [facility] POTASSIUM SERPL SCNC 4.7mmol/L Normal 3.5 - 5.1 [facility] HCO3 SER SCNC 23mmol/L Below low normal 24 - 3 2 [facility] BASOPHILS IN BLOOD BY AUTOMATED COUNT 0K/uL Normal 0 - 0.2 [facility] HCT VFR BLD AUTO 19.5% Below low normal 40 - 54 [facility] NEUTROPHILS NO. BLD AUTO 3.2K/uL Normal 1.8 - 7.8 [facility] EOSINOPHIL NO. BLD AUTO 0.2K/uL Normal 0 - 0.5 [facility] IMMATURE GRANULOCYTE, PERCENT 0.4% Normal 0 - 1 [facility] PLATELET NO. BLD AUTO 118K/uL Below low normal 150 - 450 [facility] IMMATURE GRANULOCYTE, ABSOLUTE 0.02k/uL Normal - 0.1 [facility] MCV RBC AUTO 101fL Above high normal 78 - 1 00 [facility] LYMPHOCYTES NO. BLD AUTO 0.5K/uL Below low normal 1 - 3.2 [facility] MONOCYTES NFR BLD AUTO 14.3% Above high normal 2 - 12 [facility] HGB BLD MCNC 5.9g/dL Below low normal 13.5 - 18 [facility] PMV BLD AUTO 10.6fL Normal 7.4 - 11.4 [facility] EOSINOPHIL NFR BLD AUTO 4.5% Normal 0 - 6 [facility] MCH RBC QN AUTO 30.6pg Normal 25 - 33 [facility] RBC NO. BLD AUTO 1.93M/uL Below low normal 4.7 - 6 [facility] NUCLEATED RBC 0% Normal 0 - 1 [facility] BASOPHILS NFR BLD AUTO 0.9% Normal 0 - 2 [facility] LYMPHOCYTES NFR BLD AUTO 11.5% Below low normal 20 - 48 [facility] NEUTROPHILS NFR BLD AUTO 68.4% Normal 44 - 74 [facility] WBC NO. BLD AUTO 4.7K/uL Normal 4 - 10.5 [facility] RDW RBC AUTO RTO 18.6% Above high normal 12.1 - 17.7 [facility] MCHC RBC AUTO MCNC 30.3g/dL Below low normal 3 2 - 36 [facility] MONOCYTES NO. BLD AUTO 0.7K/uL Normal 0 - 0.8 [facility] PT TIME PPP 19.1sec Above high normal 10.5 - 13.3 [facility] INR PPP 1.6 Above high normal 0.8 - 1.1 [facility] APTT TIME PPP 39sec Above high normal 25 - 37 [facility] ABO+RH GP BLD Normal [facility] BLD GP AB SCN SERPL QL Normal [facility] BLOOD BANK CMNT PATIENT-IMP Normal [facility] BNP BLD MCNC 379pg/mL Above high normal 0 - 10 0 [facility] MAGNESIUM SERPL MCNC 1.5mg/dL Below low normal 1.7 - 2.8 [facility] HAV IGM SER QL EIA NEGATIVE Normal - [facility] HBV core IgM SerPl Ql EIA NEGATIVE Normal - [facility] HCV IGG SER QL EIA NEGATIVE Normal - [facility] HBV SURFACE AG SER QL EIA NEGATIVE Normal - [facility] MCHC RBC AUTO MCNC 31.4g/dL Below low normal 3 2 - 36 [facility] EOSINOPHIL NFR BLD AUTO 5.4% Normal 0 - 6 [facility] NEUTROPHILS NO. BLD AUTO 2.8K/uL Normal 1.8 - 7.8 [facility] BASOPHILS IN BLOOD BY AUTOMATED COUNT 0.1K/uL Normal 0 - 0.2 [facility] HGB BLD MCNC 10.3g/dL Below low normal 13.5 - 18 [facility] MONOCYTES NO. BLD AUTO 0.6K/uL Normal [id number] 0 - 0.8 [facility] MONOCYTES NFR BLD AUTO 13.1% Above high normal [id number] 2 - 12 [facility] EOSINOPHIL NO. BLD AUTO 0.2K/uL Normal [id number] 0 - 0.5 [facility] RBC NO. BLD AUTO 3.48M/uL Below low normal [id number] 4.7 - 6 [facility] NEUTROPHILS NFR BLD AUTO 66.2% Normal [id number] 44 - 74 [facility] WBC NO. BLD AUTO 4.3K/uL Normal [id number] 4 - 10.5 [facility] LYMPHOCYTES NFR BLD AUTO 13.4% Below low normal [id number] 20 - 48 [facility] RDW RBC AUTO RTO 16.5% Normal [id number] 12.1 - 17.7 [facility] IMMATURE GRANULOCYTE, ABSOLUTE 0.02k/uL Normal [id number] - 0.1 [facility] MCV RBC AUTO 94.3fL Normal [id number] 78 - [facility] I[facility] GRANULOCYTE, PERCENT 0.5% Normal [id number] 0 - 1 [facility] PMV BLD AUTO 11.8fL Above high normal [id number] 7.4 - 11.4 [facility] BASOPHILS NFR BLD AUTO 1.4% Normal [id number] 0 - 2 [facility] MCH RBC QN AUTO 29.6pg Normal [id number] 25 - 33 [facility] HCT VFR BLD AUTO 32.8% Below low normal [id number] 40 - 54 [facility] LYMPHOCYTES NO. BLD AUTO 0.6K/uL Below low normal [id number] 1 - 3.2 [facility] TIBC SERPL MCNC 423ug/dL Normal [id number] 250 - 450 [facility] UIBC SERPL MCNC 358ug/dL Above high normal [id number] 155 - 355 [facility] IRON SATN MFR SERPL 15% Below low normal [id number] 20 - 45 [facility] IRON SERPL MCNC 65mcg/dL Normal [id number] 49 - 181 C [facility] FERRITIN SERPL MCNC 22ng/mL Normal [id number] 20 - 250 [facility] History of Medication Use Medication Directions Dispensed Refills Start Date End Date Status pregabalin (LYRICA) 150 mg capsule Take 2 capsules (300 mg total) by mouth 2 (two) times a day. Max Daily Amount: 600 mg 5 active pregabalin (LYRICA) 150 mg capsule Take 2 capsules (300 mg total) by mouth 2 (two) times a day. Max Daily Amount: 600 mg 5 active pregabalin 300 mg capsule TAKE 1 CAPSULE BY MOUTH TWICE A DAY 5 completed valsartan (DIOVAN) 160 mg tablet Take 1 tablet (160 mg total) by mouth 1 (one) time each day. 5 025 aborted insulin regular (HumuLIN R) injection 10 Units 10 Units, subcutaneous, Once, On Sat08/08/24 at 2215, For 1 dose 5 completed insulin glargine (LANTUS) injection 15 Units 15 Units, subcutaneous, Nightly, First dose (after last modification) on Sat08/08/24 at 2100, Notify provider: -If patient is currently or will become NPO -If TPN was or will be interrupted or discontinued -For approval to hold long acting insulin 5 active insulin lispro injection 7 Units 7 Units, subcutaneous, 3 times daily with meals, First dose (after last modification) on Sat08/08/24 at 1700, Mealtime Insulin - Administer with meal -Do NOT give if patient NPO or expected to eat LESS than 50 5 active ferric gluconate (FERRLECIT) 125 mg in sodium chloride 0.9 % 110 mL IVPB 125 mg, intravenous, at 110 mL/hr, Administer over 60 Minutes, Daily, First dose on Sat08/05/24 at 0900, For 3 doses 5 025 completed carvediloL (COREG) tablet 12.5 mg 12.5 mg, oral, 2 times daily with meals, First dose on Sat08/05/24 at 0800 5 active polyethylene glycol (MIRALAX) packet 17 g 17 g, oral, Daily, First dose on Sat08/05/24 at 0900, Bowel Regimen - for prevention of constipation 5 active pregabalin (LYRICA) capsule 150 mg 150 mg, oral, 2 times daily, First dose on Sat08/05/24 at 0144 5 active senna-docusate (PERICOLACE) 8.6-50 mg per tablet 1 tablet 1 tablet, oral, 2 times daily, First dose on Sat08/04/24 at 2232, Bowel Regimen - for prevention of constipation 5 active insulin aspart (NovoLOG U-100 Insulin aspart) 100 unit/mL injection Inject 13 Units under the skin 3 (three) times a day before meals. 5 active insulin aspart (NovoLOG U-100 Insulin aspart) 100 unit/mL injection Inject 13 Units under the skin 3 (three) times a day before meals. 5 active carvediloL (COREG) tablet 12.5 mg 12.5 mg, oral, 2 times daily with meals, First dose on Sat07/23/24 at 0800 5 active ferrous sulfate tablet 325 mg 325 mg, oral, Daily, First dose on Sat07/23/24 at 0900, Ordered as ferrous sulfate. 325 mg ferrous sulfate = 65 mg elemental iron. 5 active carvediloL (COREG) tablet 6.25 mg 6.25 mg, oral, Once, On Sat07/22/24 at 1900, For 1 dose, Hold if SBP < 110 5 active insulin aspart, niacinamide, (Fiasp FlexTouch U-100 Insulin) 100 unit/mL (3 mL) injection pen Inject 10-20 Units under the skin 3 (three) times a day before meals. 5 active insulin aspart, niacinamide, (Fiasp FlexTouch U-100 Insulin) 100 unit/mL (3 mL) injection pen Inject 10-20 Units under the skin 3 (three) times a day before meals. 5 active allopurinoL (ZYLOPRIM) 300 mg tablet Take 1 tablet (300 mg total) by mouth 1 (one) time each day. 5 active allopurinoL (ZYLOPRIM) 300 mg tablet Take 1 tablet (300 mg total) by mouth 1 (one) time each day. 5 active colchicine (COLCRYS) 0.6 mg tablet 5 active insulin aspart (NovoLOG U-100 Insulin aspart) 100 unit/mL injection Inject 6 Units under the skin 3 (three) times a day before meals. 5 active insulin aspart (NovoLOG U-100 Insulin aspart) 100 unit/mL injection Inject 6 Units under the skin 3 (three) times a day before meals. 5 active pregabalin (LYRICA) 150 mg capsule Take 1 capsule (150 mg total) by mouth 2 (two) times a day. Max Daily Amount: 300 mg 5 active pregabalin (LYRICA) 150 mg capsule Take 1 capsule (150 mg total) by mouth 2 (two) times a day. Max Daily Amount: 300 mg 5 active insulin glargine (LANTUS) injection 6 Units 6 Units, subcutaneous, Nightly, First dose (after last modification) on 06/27/24 at 2100, Notify provider: -If patient is currently or will become NPO -If TPN was or will be interrupted or discontinued -For approval to hold long acting insulin 5 active insulin lispro injection 5 Units 5 Units, subcutaneous, 3 times daily with meals, First dose (after last modification) on 06/28/24 at 1700, Mealtime Insulin - Administer with meal -Do NOT give if patient NPO or expected to eat LESS than 50% 5 active insulin lispro injection 8 Units 8 Units, subcutaneous, 3 times daily with meals, First dose on 3/8/25 at 0800, Mealtime Insulin - Administer with meal -Do NOT give if patient NPO or expected to eat LESS than 50% of meal -If pre-meal gluc 5 025 aborted pantoprazole (PROTONIX) injection 40 mg 40 mg, intravenous, Administer over 2 Minutes, Every 12 hours, First dose on Sat06/26/24 at 2103, For 72 hours, Pantroprazole - IV push: Reconstitute powder for injection with 10 mL NS; final concentration: 4 mg/mL., Indication for IV Push Pantoprazole? EGD evidence of PUD with stigmata or Upper G.I. 5 025 aborted amitriptyline (ELAVIL) tablet 50 mg 50 mg, oral, Nightly, First dose on Sat06/26/24 at 2103 5 active dextrose (D50W) 50% injection 12.5 g 5 active dextrose (D50W) 50% injection 25 g 5 active magnesium oxide (MAG-OX) tablet 400 mg 400 mg, oral, 2 times daily, First dose on Sat06/27/24 at 0900 5 active pregabalin (LYRICA) capsule 150 mg 150 mg, oral, 2 times daily, First dose (after last modification) on Sat06/26/24 at 2206 5 active ondansetron ODT (ZOFRAN-ODT) disintegrating tablet 4 mg [Order 1 Start] Name: ondansetron ODT (ZOFRAN-ODT) disintegrating tablet 4 mg Signed Summary: 4 mg, oral, Every 8 hours PRN, vomiting, nausea, Starting on Sat06/26/24 at 1508, -Give IV if patient is unable to take orally. -If inadequate response within 30 minutes, proceed to next-line agent or contac 5 active sodium chloride 0.9 % infusion 42 mL/hr, intravenous, As needed, pre-, and post- transfusion as needed for line flush purposes, in conjunction with blood product transfusion only, Starting on 06/27/24 at 0906, -Use only the amount required from a 250 mL bag of NS to adequately flush -A new NS bag is required with each new unit 5 active FreeStyle Guanako 3 Sensor device 1 EA by Other route every 14 (fourteen) days. Box = Kit = 5 active FreeStyle Guanako 3 Sensor device 1 EA by Other route every 14 (fourteen) days. Box = Kit = 5 active Eliquis 5 mg tablet TAKE ONE TABLET BY MOUTH EVERY TWELVE HOURS 5 active Eliquis 5 mg tablet TAKE ONE TABLET BY MOUTH EVERY TWELVE HOURS 5 active iron sucrose (VENOFER) injection 200 mg 200 mg, intravenous, Administer over 5 Minutes, Once, On Sat06/09/24 at 1230, For 1 dose 5 025 completed oxyCODONE (ROXICODONE) 5 mg immediate release tablet Take 1 tablet (5 mg total) by mouth every 6 (six) hours if needed for severe pain. Max Daily Amount: 20 mg 5 active magnesium sulfate 2 gram/50 mL (4 %) IVPB 2 g 2 g, intravenous, at 25 mL/hr, Administer over 2 Hours, Every 2 hours, First dose on Sat05/22/24 at 0845, For 2 doses 5 025 completed sodium zirconium cyclosilicate (LOKELMA) 10 gram packet Take 10 g by mouth 1 (one) time each day for 7 doses. 5 025 active ferric gluconate (FERRLECIT) 125 mg in sodium chloride 0.9 % 110 mL IVPB 125 mg, intravenous, at 110 mL/hr, Administer over 60 Minutes, Once, On Sat05/21/24 at 1000, For 1 dose 5 025 completed HYDROmorphone (DILAUDID) injection 0.2 mg 0.2 mg, intravenous, Once, On Sat05/20/24 at 0000, For 1 dose 5 025 completed insulin regular (HumuLIN R) injection 5 Units 5 Units, intravenous, Once, On Sat05/20/24 at 0230, For 1 dose, IV Push, flush with NS after administration, Give with D50W, First Dose: STAT ONLY use an IV INSULIN SYRINGE with graduations in UNITS to draw up and administer each dose. 5 025 completed amitriptyline (ELAVIL) tablet 50 mg 50 mg, oral, Nightly, First dose on Sat05/18/24 at 2100 5 active clotrimazole-betam ethasone (LOTRISONE) 1-0.05 % cream Topical, 2 times daily, First dose on Sat05/19/24 at 1215, For 10 days 5 active insulin lispro injection 1-6 Units 1-6 Units, subcutaneous, 4 times daily before meals and nightly, First dose (after last modification) on Sat05/20/24 at 2215, Indication: Total Daily Dose (TDD) LESS than 40 units Correction Scale: Low Dose Administer with meal and/or mealtime dose of insulin to correct high blood glucose If mealti 5 025 active dextrose (D50W) 50% injection 25 g 25 g, intravenous, Once, On Sat05/20/24 at 0230, For 1 dose 5 025 completed ceFAZolin (ANCEF) 2 g in sterile water 20 mL IV syringe 2 g, intravenous, Administer over 3 Minutes, Every 8 hours, First dose on Sat05/18/24 at 1400, For 24 hours, Recovery & On Unit, Indication: Prophylaxis-Surgical 5 025 completed acetaminophen (TYLENOL) 325 mg tablet Take 2 tablets (650 mg total) by mouth every 6 (six) hours if needed for mild pain for up to 10 days. 5 active allopurinoL (ZYLOPRIM) tablet 100 mg 100 mg, oral, Daily, First dose on Sat05/18/24 at 0900 5 active apixaban (ELIQUIS) tablet 5 mg 5 mg, oral, 2 times daily, First dose on Sat05/18/24 at 0900, Indication: VTE/PE Treatment 5 active buPROPion XL (WELLBUTRIN XL) 24 hr tablet 150 mg 150 mg, oral, Daily, First dose on Sat05/18/24 at 0900, Do not crush, chew, or split. 5 active colchicine (MITIGARE) capsule 0.6 mg 5 active dextrose (D50W) 50% injection 12.5 g 12.5 g, intravenous, Every 15 min PRN, low blood sugar, moderate hypoglycemia *Patient is Unconscious, NPO, unable to swallow: BG 54 - 69 mg/dl*, Starting on Sat05/18/24 at 0324 5 active dextrose 15 gram/60 mL oral solution 15 g 15 g, oral, Every 15 min PRN, low blood sugar, hypoglycemia *Patient conscious AND able to drink and swallow safely*, Starting on Sat05/18/24 at 0324 5 active dextrose 15 gram/60 mL oral solution 30 g 30 g, oral, Every 15 min PRN, low blood sugar, hypoglycemia *Patient conscious AND able to drink and swallow safely*, Starting on Sat05/18/24 at 0324 5 active folic acid (FOLVITE) tablet 1 mg 1 mg, oral, Daily, First dose on Sat05/18/24 at 0900 5 active Glucagon HCl (rDNA) injection 1 mg 1 mg, intramuscular, Once as needed, low blood sugar, severe hypoglycemia, Starting on Sat05/18/24 at 0324, For 1 dose 5 active insulin glargine (LANTUS) injection 10 Units 10 Units, subcutaneous, Every morning, First dose on Sat05/18/24 at 0700, Notify provider: -If patient is currently or will become NPO -If TPN was or will be interrupted or discontinued -For approval to hold long acting insulin 5 active naloxone (NARCAN) injection 0.04 mg 0.04 mg, intravenous, As needed, opioid reversal, IV Push every 1 min for 10 doses, Starting on Sat05/18/24 at 1605, For 10 doses, To Dilute: -Use 0.4 mg/mL vial , withdraw 1 mL and add 9 mL NS -FOLLOWING DILUTION, dose of 0.04 mg = 1 mL For PARTIAL Opioid Reversal: -For respiratory rate LESS than 5 active oxyCODONE (ROXICODONE) immediate release tablet 10 mg 10 mg, oral, Every 4 hours PRN, severe pain or when therapies for moderate pain were not effective, Starting on Sat05/18/24 at 1606 5 active oxyCODONE (ROXICODONE) immediate release tablet 5 mg 5 mg, oral, Every 4 hours PRN, moderate pain or when therapies for mild pain were not effective, Starting on Sat05/18/24 at 1606 5 active pregabalin (LYRICA) capsule 200 mg 200 mg, oral, 2 times daily, First dose on Sat05/18/24 at 0900 5 active valsartan (DIOVAN) tablet 320 mg 5 active fentaNYL (PF) (SUBLIMAZE) injection 50 mcg 50 mcg, intravenous, Once, On Sat05/18/24 at 1015, For 1 dose 5 025 completed iopamidoL (ISOVUE-370) 370 mg iodine /mL (76 %) injection 85 mL 85 mL, intravenous, Once in imaging, Starting on Sat05/17/24 at 1508, For 1 dose 5 025 completed sodium chloride 0.9 % flush 10 mL 10 mL, intravenous, Once, On Sat05/17/24 at 1509, For 1 dose 5 025 completed sodium chloride 0.9 % intravenous solution 50 mL 50 mL, intravenous, Once in imaging, Starting on Sat05/17/24 at 1508, For 1 dose 5 025 completed sodium chloride 0.9 % flush 10 mL [Order 1 Start] Name: Maintain IV access Signed Summary: Until discontinued, Starting on Sat05/17/24 at 1999, Until Specified [Order 1 End] [Order 2 Start] Name: Saline lock IV Signed Summary: Routine, Once, On Sat05/17/24 at 1999, For 1 occurrence [Order 2 End] [Order 3 Start] Name: sodium chloride 5 active carvediloL (COREG) 6.25 mg tablet TAKE 1 TABLET BY MOUTH TWICE A DAY WITH FOOD 5 active torsemide (DEMADEX) 20 mg tablet TAKE 1 TABLET BY MOUTH EVERY DAY 5 active amitriptyline (ELAVIL) 50 mg tablet TAKE ONE TABLET (50 MG TOTAL) BY MOUTH AT BEDTIME 4 active buPROPion SR (WELLBUTRIN SR) 150 mg 12 hr tablet TAKE ONE TABLET (150MG TOTAL) BY MOUTH ONCE DAILY DO NOT CRUSH, CHEW, OR SPIT. 4 active pregabalin (LYRICA) 200 mg capsule Take 1 capsule (200 mg total) by mouth 2 (two) times a day. Max Daily Amount: 400 mg 4 active cyanocobalamin (VITAMIN B-12) 500 mcg tablet Take 1 tablet (500 mcg total) by mouth 1 (one) time each day. 4 active cyanocobalamin (VITAMIN B-12) 500 mcg tablet Take 1 tablet (500 mcg total) by mouth 1 (one) time each day. 4 active cyanocobalamin (VITAMIN B-12) 500 mcg tablet Take 1 tablet (500 mcg total) by mouth 1 (one) time each day. 4 active pantoprazole (PROTONIX) 40 mg EC tablet Take 1 tablet (40 mg total) by mouth 2 (two) times a day. 4 active semaglutide (Ozempic) 1 mg/dose (4 mg/3 mL) injection pen Inject 1 mg under the skin every 7 (seven) days. 4 active semaglutide (Ozempic) 1 mg/dose (4 mg/3 mL) injection pen Inject 1 mg under the skin every 7 (seven) days. 4 active semaglutide (Ozempic) 1 mg/dose (4 mg/3 mL) injection pen Inject 1 mg under the skin every 7 (seven) days. 4 active valsartan (DIOVAN) 320 mg tablet Take 1 tablet (320 mg total) by mouth 1 (one) time each day. 4 active carvediloL (Coreg) 12.5 mg tablet Take 1 tablet (12.5 mg total) by mouth 2 (two) times a day with meals. 4 active FreeStyle Guanako 3 Sensor device 4 active FreeStyle Guan[place] 3 Sensor device 4 active varenicline (CHANTIX) 1 mg tablet Take 1 tablet (1 mg total) by mouth 2 (two) times a day. Take with full glass of water. 4 025 active varenicline (CHANTIX) 1 mg tablet Take 1 tablet (1 mg total) by mouth 2 (two) times a day. Take with full glass of water. 4 025 active carvediloL (Coreg) 12.5 mg tablet Take 1 tablet (12.5 mg total) by mouth 2 (two) times a day with meals. 4 active varenicline (CHANTIX) 1 mg tablet Take 1 tablet (1 mg total) by mouth 2 (two) times a day. Take with full glass of water. 4 active Tresiba FlexTouch U-100 100 unit/mL (3 mL) injection pen Inject 12 Units under the skin. 4 active Tresiba FlexTouch U-100 100 unit/mL (3 mL) injection pen Inject 12 Units under the skin. 4 active torsemide (DEMADEX) 20 mg tablet TAKE 1 TABLET BY MOUTH EVERY DAY 4 active Insulin Pen Needle 32G X 4 MM MISC Inject 1 Needle under the skin daily as needed. 4 active Farxiga 10 MG tablet 4 active pregabalin (LYRICA) 200 MG capsule TAKE ONE CAPSULE (200 MG TOTAL) BY MOUTH TWICE DAILY 4 active folic acid 1 mg tablet Take 1 tablet (1 mg total) by mouth daily. 4 025 completed sodium chloride 0.9% (NS) infusion 50 mL/hr, Intravenous, Continuous PRN, other, As needed to keep vein open, Starting on Sat01/01/24 at 0948 4 024 aborted magnesium 400 mg (as magnesium oxide) capsule Take 400 mg by mouth 3 (three) times a day. 4 active spironolactone (ALDACTONE) 25 mg tablet Take 1 tablet (25 mg total) by mouth 1 (one) time each day. 4 active spironolactone (ALDACTONE) 25 mg tablet Take 1 tablet (25 mg total) by mouth 1 (one) time each day. 4 active spironolactone (ALDACTONE) tablet 25 mg Take 1 tablet (25 mg total) by mouth daily. 4 active dapagliflozin propanediol (FARXIGA) 10 mg tablet Take 1 tablet (10 mg total) by mouth. 4 active dapagliflozin propanediol (FARXIGA) 10 mg tablet Take 1 tablet (10 mg total) by mouth. 4 active dapagliflozin (FARXIGA) 10 MG tablet Take 1 tablet (10 mg total) by mouth daily. 4 024 active potassium chloride ER tablet 40 mEq 40 mEq, Oral, Once, On Serena 12/12/23 at 0830, For 1 doseDo not crush or chew tablet.?To make a liquid dissolution from a tablet: ??1) Place the whole tablet(s) in approximately ? ? ? cup of water (4 fluid ounces). ??2) Allow approximately 2 minutes for the tablet(s) to disintegrate. ??3) Stir for about gan 4 completed furosemide (LASIX) injection 40 mg 40 mg, Intravenous, 2 times daily, First dose on 12/09/23 at 0900 4 024 aborted iopamidol (ISOVUE-370) 76 % injection 80 mL 80 mL, Intravenous, IMG once as needed, contrast, Starting on 12/08/23 at 2130, For 1 dose, Radiology ContrastLot #: [id number] Date: 07/07/2026 completed insulin glargine (LANTUS) injection 6 Units 6 Units, Subcutaneous, Every Night at Bedtime, First dose on 12/08/23 at 2245 4 active nicotine (NICODERM CQ) 14 MG/24HR 1 patch 1 patch, Transdermal, Administer over 24 Hours, Daily, First dose on Sat12/09/23 at 0900 4 active pregabalin (LYRICA) capsule 200 mg 200 mg, Oral, 2 times daily, First dose on Sat12/09/23 at 0900 4 active oxyCODONE (ROXICODONE) 5 MG immediate release tablet Take 1 tablet (5 mg total) by mouth every 6 (six) hours as needed. 4 024 active sodium chloride 0.9% bolus (NS) 1,000 mL 1,000 mL, Intravenous, at 1,000 mL/hr, Once, On Sat12/19/23 at 1030, For 1 dose 4 completed morphine sulfate injection 4 mg 4 mg, Intravenous, Every 30 min PRN, severe pain (7-10), Starting on Sat12/04/23 at 0007, For 3 doses 4 024 aborted atenolol (TENORMIN) tablet 50 mg 50 mg, Oral, Daily, First dose on Sat12/04/23 at 0900 4 active pregabalin (LYRICA) capsule 200 mg 200 mg, Oral, 2 times daily, First dose on Sat12/04/23 at 0900 4 active cefTRIAXone (ROCEPHIN) injection 1,000 mg 1,000 mg, Intravenous, Once, On Sat12/03/23 at 1530, For 1 doseIf ordered IV then reconstitute with 10 mL sterile water or normal saline and administer IV push over 3 to 5 minutes. 4 024 completed ceFAZolin (ANCEF) injection 1,000 mg 1,000 mg, Intravenous, Once, On Sat11/15/23 at 0600, For 1 dosePort pocket??For Adults, if ordered IV then reconstitute each 1GM vial with 10mL sterile water or normal saline and administer IV Push over 3-5 minutes. 4 024 completed fentaNYL (SUBLIMAZE) injection As needed, Starting on Sat11/15/23 at 0806, Intra-Procedure (IR) 4 completed heparin flush (porcine) 10 UNIT/ML injection As needed, Starting on Sat11/15/23 at 0823, Intra-Procedure (IR) 4 completed pregabalin (LYRICA) 200 MG capsule Take 1 capsule (200 mg total) by mouth 2 (two) times a day. 4 active pregabalin (LYRICA) 200 mg capsule Take 1 capsule (200 mg total) by mouth 2 (two) times a day. 4 active epinephrine 0.3 mg/0.3 mL injection, auto-injector Inject 0.3 mL (0.3 mg total) into the muscle once for 1 dose. 4 completed EPINEPHrine (EPIPEN) 0.3 mg/0.3 mL injection INJECT 0.3 ML (0.3 MG TOTAL) INTO THE MUSCLE ONCE FOR 1 DOSE 4 active EPINEPHrine 0.3 MG/0.3ML SOAJ INJECT 0.3 ML (0.3 MG TOTAL) INTO THE MUSCLE ONCE FOR 1 DOSE 4 active EPINEPHrine 0.3 MG/0.3ML SOAJ INJECT 0.3 ML (0.3 MG TOTAL) INTO THE MUSCLE ONCE FOR 1 DOSE 4 active ketoconazole (NIZORAL) 2 % shampoo APPLY TOPICALLY TWICE DAILY. APPLY TO DAMP SKIN, LATHER, LEAVE ON FOR 5 MINUTES AND RINSE 4 active ketoconazole (NIZORAL) 2 % shampoo APPLY TOPICALLY TWICE DAILY. APPLY TO DAMP SKIN, LATHER, LEAVE ON FOR 5 MINUTES AND RINSE 4 active semaglutide (Ozempic) 1 mg/dose (4 mg/3 mL) injection pen INJECT 0.75 ML 1 MG TOTAL UNDER THE SKIN ONCE A WEEK 4 active varenicline (CHANTIX NOBLE) 0.5 mg (11)- 1 mg (42) tablet Give with meals and with a full glass of water. 4 active varenicline (CHANTIX NOBLE) 0.5 mg (11)- 1 mg (42) tablet Give with meals and with a full glass of water. 4 active atenolol 50 mg tablet 4 completed colchicine 0.6 MG tablet 4 active metformin ER 750 mg tablet,extended release 24 hr 4 completed lidocaine 4 % topical patch Place 1 patch onto the skin daily. 4 completed Lidocaine 4 % Place 1 patch onto t he skin daily. 4 active insulin glargine (LANTUS) injection 10 Units 10 Units, Subcutaneous, Every Night at Bedtime, First dose on Sat09/13/23 at 2200 4 active ondansetron (ZOFRAN-ODT) disintegrating tablet 8 mg 8 mg, Oral, Once as needed, nausea, vomiting, Starting on Sat09/13/23 at 2148, For 1 dose 4 active betamethasone dipropionate (DIPROSONE) 0.05 % cream 4 active betamethasone dipropionate (DIPROSONE) 0.05 % cream 4 active betamethasone dipropionate (DIPROSONE) 0.05 % cream 4 active betamethasone dipropionate (DIPROSONE) 0.05 % cream 4 active insulin detemir (Levemir FlexPen) 100 unit/mL (3 mL) injection pen Inject 12 Units under the skin every night at bedtime. 4 active folic acid (FOLVITE) tablet 1 mg Take 1 tablet (1 mg total) by mouth daily. 4 active carvedilol (COREG) 6.25 MG tablet Take 1 tablet (6.25 mg total) by mouth 2 (two) times a day with meals. 4 active pregabalin (LYRICA) capsule 150 mg TAKE 1 CAPSULE BY MOUTH TWICE A DAY 4 active thiamine HCl (vitamin B1) 100 mg tablet Take 1 tablet (100 mg total) by mouth daily. 4 024 completed pregabalin (LYRICA) capsule 150 mg TAKE 1 CAPSULE BY MOUTH TWICE A DAY 4 active carvedilol (COREG) 6.25 MG tablet Take 1 tablet (6.25 mg total) by mouth 2 (two) times a day with meals. 4 active pregabalin (LYRICA) capsule 300 mg 300 mg, Oral, 2 times daily, First dose (after last modification) on Sat08/26/23 at 2100 4 aborted cyanocobalamin 500 MCG tablet Take 1 tablet (500 mcg total) by mouth daily. 4 active cyanocobalamin 500 MCG tablet Take 1 tablet (500 mcg total) by mouth daily. 4 active folic acid (FOLVITE) 1 mg tablet Take 1 tablet (1 mg total) by mouth daily. 4 active folic acid (FOLVITE) 1 mg tablet Take 1 tablet (1 mg total) by mouth daily. 4 active insulin detemir (Levemir FlexPen) 100 unit/mL (3 mL) injection pen Inject 12 Units under the skin every night at bedtime. 4 active insulin detemir (Levemir FlexPen) 100 UNIT/ML injection Inject 12 Units under the skin every night at bedtime. 4 active Magnesium Oxide 400 MG CAPS Take 400 mg by mouth 3 (three) times a day. 4 active magnesium oxide 400 mg magnesium capsule Take 400 mg by mouth 2 (two) times a day. 4 active pantoprazole (PROTONIX) 40 mg EC tablet Take 1 tablet (40 mg total) by mouth 2 (two) times a day. 4 active pantoprazole (PROTONIX) 40 mg EC tablet Take 1 tablet (40 mg total) by mouth 2 (two) times a day. 4 active pantoprazole (PROTONIX) 40 MG tablet Take 1 tablet (40 mg total) by mouth 2 (two) times a day. 4 active pantoprazole (PROTONIX) 40 MG tablet Take 1 tablet (40 mg total) by mouth 2 (two) times a day. 4 active pregabalin (LYRICA) capsule 150 mg TAKE 1 CAPSULE BY MOUTH TWICE A DAY 4 active thiamine mononitrate (THIAMINE) 100 MG tablet Take 1 tablet (100 mg total) by mouth daily. 4 active potassium chloride ER tablet 20 mEq 20 mEq, Oral, Once, On Sat08/25/23 at 1330, For 1 doseDo not crush or chew tablet.?To make a liquid dissolution from a tablet: ??1) Place the whole tablet(s) in approximately ? ? ? cup of water (4 fluid ounces). ??2) Allow approximately 2 minutes for the tablet(s) to disintegrate. ??3) Stir for about oswaldo 4 completed cefTRIAXone (ROCEPHIN) injection 1,000 mg 1,000 mg, Intravenous, Every 24 hours, First dose on Sat12/09/23 at 2200If ordered IV then reconstitute with 10 mL sterile water or normal saline and administer IV push over 3 to 5 minutes. 4 024 aborted amitriptyline (ELAVIL) tablet 50 mg 50 mg, Oral, Every Night at Bedtime, First dose on Sat12/04/23 at 2200 4 active folic acid (FOLVITE) tablet 1 mg Take 1 tablet (1 mg total) by mouth daily. 4 active pregabalin (LYRICA) capsule 150 mg 150 mg, Oral, 2 times daily, First dose (after last modification) on Sat08/27/23 at 0900 4 024 active acetaminophen (TYLENOL) tablet 650 mg 650 mg, Oral, Every 6 hours PRN, fever, mild pain (1-3), Starting on Sat12/04/23 at 0538 4 active allopurinol (ZYLOPRIM) 100 MG tablet TAKE ONE TABLET BY MOUTH EVERY OTHER DAY FOR 30 DAYS 4 active allopurinoL (ZYLOPRIM) 100 mg tablet TAKE ONE TABLET BY MOUTH EVERY OTHER DAY FOR 30 DAYS 4 active allopurinoL (ZYLOPRIM) 100 mg tablet TAKE ONE TABLET BY MOUTH EVERY OTHER DAY FOR 30 DAYS 4 active atenolol (TENORMIN) tablet 50 mg Take 3 tablets (150 mg total) by mouth daily. 4 active insulin detemir (Levemir FlexPen) 100 UNIT/ML injection Inject 15 Units under the skin every night at bedtime. 4 024 active magnesium sulfate 2 g/50ml IVPB Premix 2 g, Intravenous, at 50 mL/hr, Once, On Sat12/19/23 at 1200, For 1 dose 4 024 completed buPROPion (WELLBUTRIN XL) 24 hr tablet 150 mg 150 mg, Oral, Daily, First dose on Sat12/04/23 at 0900 4 active dextrose 5 % in lactated ringers infusion 100 mL/hr, Intravenous, Continuous, Starting on Sat06/26/23 at 0600 4 active iron sucrose (VENOFER) injection 200 mg 10 mL 200 mg, Intravenous, 3 times weekly (Once per day on Sat), First dose on Sat01/01/24 at 0945Administer IV push over 2 minutes. 4 024 aborted lactated ringers infusion 100 mL/hr, Intravenous, Continuous, Starting on Sat09/13/23 at 2230, For 8 hours 4 024 aborted apixaban (ELIQUIS) 5 mg tablet Take 1 tablet (5 mg total) by mouth every 12 (twelve) hours. 4 active apixaban (Eliquis) 5 MG TABS tablet Take 1 tablet (5 mg total) by mouth every 12 (twelve) hours. 4 active apixaban (ELIQUIS) tablet 5 mg 5 mg, Oral, Every 12 hours, First dose on Sat12/08/23 at 2245 4 active thiamine mononitrate (VITAMIN B-1) 100 MG tablet Take 2 tablets (200 mg total) by mouth daily. 4 024 active carvedilol (COREG) 3.125 MG tablet Take 1 tablet (3.125 mg total) by mouth 2 (two) times a day with meals. 4 024 active PANTOprazole (PROTONIX) 40 MG EC tablet Take 1 tablet (40 mg total) by mouth 2 times a day. 4 024 active insulin detemir (LevEMIR FLEXPEN) 100 UNIT/ML prefilled pen injection Inject 25 Units under the skin every morning. 4 active insulin lispro (HumaLOG/ADMELOG) 100 units/mL injection Inject 0.01-0.06 mL (1-6 Units total) under the skin 3 (three) times a day with meals. 4 active budesonide (Pulmicort Flexhaler) 90 mcg/actuation inhaler Inhale 1 puff by mouth. 04/26/19 2 4 025 aborted albuterol sulfateTak e 2 Application (inhalation) every 4 hours for 4 [id number] aerosol inhalerevery 4 [id number] mpr50wwx/actuation 4 active Pulmicort Flexhaler 90 MCG/ACT inhaler Inhale 1 puff 2 (two) times a day. Did not start taking yet 4 active metFORMIN (GLUCOPHAGE-XR) 750 MG 24 hr tablet Take 1 tablet (750 mg total) by mouth every morning with breakfast. 4 active Semaglutide, 1 MG/DOSE, (Ozempic, 1 MG/DOSE,) 4 MG/3ML SOPN Inject 0.75 mL (1 mg total) under the skin once a week. 4 active minocycline 50 MG capsule Take 1 capsule (50 mg total) by mouth every morning on an empty stomach. 3 024 active valsartan (DIOVAN) tablet 320 mg Take 1 tablet (320 mg total) by mouth daily. 3 024 aborted buPROPion (WELLBUTRIN SR) 150 MG 12 hr tablet TAKE 1 TABLET BY MOUTH EVERY DAY 3 024 active atenolol (TENORMIN) tablet 100 mg Take 1 tablet (100 mg total) by mouth daily. 3 024 aborted allopurinoLTake (oral)[id number] frequency recordedoralNo set duration recordedNo set duration amount [id number] 3 active amitriptyline (ELAVIL) 50 mg tablet TAKE ONE TABLET (50 MG TOTAL) BY MOUTH AT BEDTIME 3 active amitriptyline (ELAVIL) 50 mg tablet Take 1 tablet (50 mg total) by mouth every night at bedtime. 3 active amitriptyline (ELAVIL) tablet 50 mg Take 1 tablet (50 mg total) by mouth every night at bedtime. 3 active buPROPion (WELLBUTRIN SR) 150 MG 12 hr tablet TAKE 1 TABLET BY MOUTH EVERY DAY 3 active famotidine (PEPCID) 20 MG tablet Take 1 tablet (20 mg total) by mouth daily. 3 active minocycline 50 MG capsule Take 1 capsule (50 mg total) by mouth every morning on an empty stomach. 3 active minocycline 50 MG capsule Take 1 capsule (50 mg total) by mouth every morning on an empty stomach. 3 active valsartan (DIOVAN) tablet 320 mg Take 1 tablet (320 mg total) by mouth daily. 3 active minocyclineTake (oral)[id number] frequency recordedoralNo set duration recordedNo set duration amount [id number] 3 active amitriptyline (ELAVIL) 50 MG tablet Take 1 tablet (50 mg total) by mouth nightly. 3 active amitriptylineTake (oral)[id number] frequency recordedoralNo set duration recordedNo set duration amount [id number] 3 active colchicine 0.6 MG tablet 3 active buPROPion (WELLBUTRIN SR) 150 MG 12 hr tablet TAKE 1 TABLET BY MOUTH EVERY DAY 3 active EliquisTake (oral)[id number] frequency recordedoralNo set duration recordedNo set duration amount [id number] 3 active amitriptyline (ELAVIL) tablet 50 mg Take 1 tablet (50 mg total) by mouth every night at bedtime. 3 active minocycline 50 MG capsule TAKE 1 CAPSULE ONCE A DAY WITHOUT FOOD 3 active atenolol (TENORMIN) tablet 50 mg 3 024 active atenolol (TENORMIN) tablet 50 mg 3 024 active insulin aspart (NovoLOG FLEXPEN) 100 UNIT/ML injection Inject 16 Units under the skin 3 (three) times a day before meals. 3 024 active Insulin Pen Needle (Global Ease Inject Pen Kirby) 31G X 5 MM MISC 4 Pen Needle by Does not apply route 4 (four) times a day. 2 active colchicine (COLCRYS) 0.6 mg tablet Take 1 tablet (0.6 mg total) by mouth. 2 active colchicine (COLCRYS) 0.6 mg tablet Take 1 tablet (0.6 mg total) by mouth. 2 active metronidazole 0.75 % topical gel 1 application daily as needed (rosacea). 2 024 completed metroNIDAZOLE (METROGEL) 0.75 % gel 1 application daily as needed (rosacea). 2 024 active metroNIDAZOLE (METROGEL) 0.75 % gel 1 application daily as needed (rosacea). 2 024 active Gvoke HypoPen 1-Pack 1 mg/0.2 mL subcutaneous auto-injector Inject 1 mg under the skin as needed (for severe hypoglycemic reaction). 2 025 completed glucagon (Gvoke HypoPen 1-Pack) 1 mg/0.2 mL auto-injector Inject 1 mg under the skin as needed (for severe hypoglycemic reaction). 2 active Glucagon (Gvoke HypoPen 2-Pack) 1 MG/0.2ML SOAJ Inject 1 mg under the skin as needed (for severe hypoglycemic reaction). 2 active Continuous Blood Gluc Foley Artist (FreeStyle Guanako 2 [place]) TARIK 1 applicator by Does not apply route 4 (four) times a day. 2 active Continuous Blood Gluc Foley Artist (FreeStyle Guanako 2 [place]) TARIK 1 applicator by Does not apply route 4 (four) times a day. 2 active Continuous Glucose Sensor (FreeStyle Guanako 2 Sensor) MISC Inject 1 Device under the skin every 14 (fourteen) days. Check glucose levels twice daily 2 active Famotidine 20mg/2ml Solution for Injection 2 active valsartan (DIOVAN) 320 mg tablet Take 1 tablet (320 mg total) by mouth 1 (one) time each day. 9 active pregabalin (LYRICA) 225 MG capsule Take 300 mg by mouth 2 (two) times a day. 9 active Elastic Bandages & Supports (MEDICAL COMPRESSION THIGH HIGH) MISC 30 mm by Does not apply route daily. 7 024 active allopurinol 100 mg tablet TAKE ONE TABLET BY MOUTH EVERY OTHER DAY FOR 30 DAYS 025 completed betamethasone dipropionate 0.05 % topical cream APPLY TO THE AFFECTED AREA(S) (EXTREMETIES) TWICE DAILY THEN NEEDED 025 completed carvedilol 6.25 mg tablet TAKE 1 TABLET BY MOUTH TWICE A DAY WITH FOOD 025 completed ciprofloxacin 500 mg tablet TAKE 1 TABLET BY MOUTH 2 TIMES A DAY FOR 1 DAY. 025 completed doxycycline hyclate 100 mg capsule TAKE 1 CAPSULE BY MOUTH TWICE A DAY FOR 5 DAYS 025 completed famotidine 20 mg tablet TAKE ONE TABLET (20 MG TOTAL) BY MOUTH DAILY AT 9AM 025 completed Farxiga 10 mg tablet 025 completed Levemir FlexPen 100 unit/mL (3 mL) solution subcutaneous insulin pen INJECT 15 UNITS UNDER THE SKIN EVERY NIGHT AT BEDTIME 025 completed Lokelma 10 gram oral powder packet TAKE 1 PACKET BY MOUTH 1 (ONE) TIME EACH DAY FOR 7 DOSES. 025 completed magnesium 400 mg (as magnesium oxide) tablet TAKE 400 MG BY MOUTH 2 (TWO) TIMES A DAY. 025 completed minocycline 50 mg capsule TAKE 1 CAPSULE (50 MG TOTAL) BY MOUTH EVERY MORNING ON AN EMPTY STOMACH. 025 completed Xenia 2nd Gen Pen Needle 32 gauge x 5/32 INJECT INTO THE SKIN 4 (FOUR) TIMES A DAY. active oxycodone 5 mg tablet TAKE 1 TABLET (5 MG TOTAL) BY MOUTH EVERY 6 HOURS NEEDED FOR SEVERE PAIN MAX DAILY AMOUNT: 20 MG completed pregabalin 200 mg capsule TAKE 1 CAPSULE (200 MG TOTAL) BY MOUTH 2 (TWO) TIMES A DAY. MAX DAILY AMOUNT: 400 MG completed spironolactone 25 mg tablet TAKE 1 TABLET (25 MG TOTAL) BY MOUTH DAILY. completed valsartan 160 mg tablet TAKE 1 TABLET BY MOUTH EVERY DAY completed valsartan 320 mg tablet TAKE ONE TABLET (320 MG TOTAL) BY MOUTH ONCE DAILY completed valsartan 40 mg tablet TAKE ONE TABLET BY MOUTH DAILY completed varenicline tartrate 1 mg tablet TAKE 1 TABLET BY MOUTH TWICE A DAY completed oxyCODONE (ROXICODONE) 5 mg immediate release tablet Take 1 tablet (5 mg total) by mouth every 6 (six) hours as needed. - Oral active acetaminophen 500 mg tablet Take 2 tablets (1,000 mg total) by mouth every 8 (eight) hours as needed. completed acetaminophen (TYLENOL EXTRA STRENGTH) 500 MG tablet Take 2 tablets (1,000 mg total) by mouth every 8 (eight) hours as needed. active EliquisTakeNo date recordedNo form recordedNo frequency recordedNo route recordedNo set duration recordedNo set duration amount recordedsuspendedNo dosage strength recordedNo dosage strength units of measure recorded suspended LyricaTakeNo date recordedNo form recordedNo frequency recordedNo route recordedNo set duration recordedNo set duration amount recordedsuspendedNo dosage strength recordedNo dosage strength units of measure recorded suspended atenololTakeNo date recordedNo form recordedNo frequency recordedNo route recordedNo set duration recordedNo set duration amount recordedsuspendedNo dosage strength recordedNo dosage strength units of measure recorded suspended albuterol sulfate HFA 90 mcg/actuation aerosol inhaler INHALE TWO PUFFS BY MOUTH EVERY 6 HOURS NEEDED FOR WHEEZING active allopurinol 300 mg tablet TAKE 1 TABLET BY MOUTH 1 TIME EACH DAY. active allopurinol 300 mg tablet TAKE 1 TABLET BY MOUTH 1 TIME EACH DAY. active amitriptyline 50 mg tablet TAKE ONE TABLET (50 MG TOTAL) BY MOUTH DAILY AT BEDTIME active atenolol 50 mg tablet TAKE 3 TABLETS BY MOUTH EVERY DAY active betamethasone dipropionate 0.05 % topical cream APPLY 2 TIMES A DAY X 2 WEEKS ON LEGS AND ARMS WHEN FLARING THEN NEEDED active bupropion HCl SR 150 mg tablet,12 hr sustained-release TAKE ONE TABLET (150 MG TOTAL) BY MOUTH ONCE DAILY DO NOT CRUSH, CHEW, OR SPIT. active carvedilol 12.5 mg tablet TAKE 1 TABLET BY MOUTH TWICE A DAY WITH FOOD active carvedilol 12.5 mg tablet TAKE 1 TABLET BY MOUTH TWICE A DAY WITH FOOD active carvedilol 6.25 mg tablet TAKE 1 TABLET BY MOUTH TWICE A DAY WITH FOOD active ciprofloxacin 500 mg tablet TAKE 1 TABLET BY MOUTH 2 TIMES A DAY FOR 1 DAY. active colchicine (gout) 0.6 mg tablet TAKE 1 TABLET BY MOUTH EVERY DAY active colchicine 0.6 mg tablet TAKE ONE TABLET (0.6 MG TOTAL) BY MOUTH 1 TIME EACH DAY active cyanocobalamin (vit B-12) 500 mcg tablet TAKE ONE TABLET (500MCG TOTAL) BY MOUTH ONCE DAILY active cyanocobalamin (vit B-12) 500 mcg tablet TAKE ONE TABLET (500MCG TOTAL) BY MOUTH ONCE DAILY active doxycycline hyclate 100 mg capsule TAKE 1 CAPSULE BY MOUTH TWICE A DAY FOR 5 DAYS activ e Eliquis 5 mg tablet TAKE ONE TABLET BY MOUTH EVERY TWELVE HOURS active enoxaparin 120 mg/0.8 mL subcutaneous syringe INJECT 0.8 ML (120 MG TOTAL) UNDER THE SKIN EVERY 12 (TWELVE) HOURS. active epinephrine 0.3 mg/0.3 mL injection, auto-injector INJECT 0.3 ML (0.3 MG TOTAL) INTO THE MUSCLE ONCE FOR 1 DOSE active famotidine 20 mg tablet TAKE 1 TABLET BY MOUTH EVERY DAY active folic acid 1 mg tablet TAKE 1 TABLET BY MOUTH EVERY DAY active ketoconazole 2 % shampoo APPLY TOPICALLY TO DAMP SKIN, LATHER, LEAVE ON 5 MINUTES, AND RINSE- USE 2 TIMES A WEEK. active ketoconazole 2 % shampoo APPLY TOPICALLY TWICE DAILY APPLY TO DAMP SKIN, LATHER, LEAVE ON FOR 5 MINUTES AND RINSE acti ve Lokelma 10 gram oral powder packet TAKE 1 PACKET BY MOUTH 1 (ONE) TIME EACH DAY FOR 7 DOSES. active magnesium 400 mg (as magnesium oxide) tablet TAKE 400 MG BY MOUTH 2 (TWO) TIMES A DAY. active metformin ER 750 mg tablet,extended release 24 hr TAKE 1 TABLET (750 MG TOTAL) BY MOUTH EVERY MORNING WITH BREAKFAST activ e minocycline 50 mg capsule TAKE 1 CAPSULE ONCE A DAY WITHOUT FOOD active Ozempic 1 mg/dose (4 mg/3 mL) subcutaneous pen injector INJECT 1 MG UNDER THE SKIN EVERY 7 DAYS. active pantoprazole 40 mg tablet,delayed release TAKE 1 TABLET BY MOUTH TWICE A DAY active pantoprazole 40 mg tablet,delayed release TAKE 1 TABLET BY MOUTH TWICE A DAY active pregabalin 150 mg capsule TAKE 1 CAPSULE (150 MG TOTAL) BY MOUTH 2 (TWO) TIMES A DAY. MAX DAILY AMOUNT: 300 MG active pregabalin 150 mg capsule TAKE 1 CAPSULE (150 MG TOTAL) BY MOUTH 2 (TWO) TIMES A DAY. MAX DAILY AMOUNT: 300 MG active pregabalin 200 mg capsule TAKE 1 CAPSULE (200 MG TOTAL) BY MOUTH 2 (TWO) TIMES A DAY. MAX DAILY AMOUNT: 400 MG active simvastatin 10 mg tablet TAKE 1 TABLET BY MOUTH EVERYDAY AT BEDTIME active spironolactone 25 mg tablet TAKE 1 TABLET (25 MG TOTAL) BY MOUTH DAILY. activ e torsemide 20 mg tablet TAKE ONE TABLET (20MG TOTAL) BY MOUTH ONCE DAILY active torsemide 20 mg tablet TAKE 1 TABLET (20 MG TOTAL) BY MOUTH ONE TIME EACH DAY active Tresiba FlexTouch U-100 insulin 100 unit/mL (3 mL) subcutaneous pen INJECT 12 UNITS UNDER THE SKIN DAILY active Tresiba FlexTouch U-100 insulin 100 unit/mL (3 mL) subcutaneous pen INJECT 12 UNITS UNDER THE SKIN DAILY active Trulicity 3 mg/0.5 mL subcutaneous pen injector INJECT 1 MG UNDER THE SKIN ONCE A WEEK active valacyclovir 1 gram tablet TAKE 2 AT FIRST ONSET, REPEAT IN 12HRS. MAY CONTINUE 1 TABLET TWICE A DAY FOR 6 DAYS IF SX PERSIST active valsartan 160 mg tablet TAKE 1 TABLET BY MOUTH EVERY DAY active valsartan 320 mg tablet TAKE 1 TABLET BY MOUTH EVERY DAY active valsartan 40 mg tablet TAKE ONE TABLET BY MOUTH DAILY active varenicline tartrate 1 mg tablet TAKE 1 TABLET BY MOUTH TWICE A DAY active acetaminophen (TYLENOL EXTRA STRENGTH) 500 MG tablet Take 2 tablets (1,000 mg total) by mouth every 8 (eight) hours as needed. active Insulin Aspart (NOVOLOG IJ) Inject 13 Units as directed 3 (three) times a day. Sliding scale active Insulin Aspart (NOVOLOG IJ) Inject 13 Units as directed 3 (three) times a day. Sliding scale active Iron Combinations (IRON COMPLEX PO) Take 1 capsule by mouth daily. active Iron Combinations (IRON COMPLEX PO) Take 1 capsule by mouth daily. active Iron Combinations (IRON COMPLEX PO) Take 1 capsule by mouth daily. active oxyCODONE (ROXICODONE) 5 mg immediate release tablet Take 1 tablet (5 mg total) by mouth every 6 (six) hours as needed. - Oral active Allergies Allergen Reaction Severity Comment Documented Date Source Statu s [facility] ENS_PHCCT XARELTO ENS_AONECT Problems Problem Status Onset Date Problem Type Date of Resolution Source Heme positive stool active 1 ProblemAct [facility] Supratherapeutic INR active 2016-04-22 3 ProblemAct [facility] Shoulder impingement active 2015-09-21 4 ProblemAct [facility] Chronic bilateral low back pain with sciatica active 2016-02-22 9 ProblemAct [facility] Acute kidney injury (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 V24, [facility] V28) active 4 ProblemAct [facility] Stage 3 chronic kidney disease ([facility] V24, 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 9 ProblemAct [facility] Hyperosmolar hyperglycemic state (HHS) (CMS/HCC V24, CMS/HCC V28) active 3 ProblemAct [facility] Dehydration active 5 ProblemAct [facility] Hypertensive disorder active 7 ProblemAct [facility] Hyperglycemia active 4 ProblemAct [facility] Umbilical hernia active 2023-05-23 2 ProblemAct [facility] Cervical radiculitis active 2015-09-21 4 ProblemAct [facility] Weakness active 2016-04-22 3 ProblemAct [facility] Acute deep vein thrombosis (DVT) of femoral vein of left lower extremity (CMS/HCC V24, CMS/HCC V28) active 7 ProblemAct [facility] Lumbar foraminal stenosis active 2015-03-22 1 ProblemAct [facility] SOB (shortness of breath) active 2024-04-23 6 ProblemAct [facility] GI bleed active 1 ProblemAct [facility] MGUS (monoclonal gammopathy of unknown significance) active EncounterDiagnosisAct CT_TH SFRAN Closed fracture of distal lateral malleolus of ankle, left, with routine healing, subsequent encounter active 2024-06-20 9 ProblemAct [facility] Obstructive sleep apnea active 2020-04-22 9 ProblemAct [facility] Cellulitis active 4 ProblemAct [facility] Lumbar radiculopathy active 2015-02-21 0 ProblemAct [facility] Numbness and tingling of right upper extremity active 2015-09-22 1 ProblemAct [facility] Sleep-related movement disorder active 8 ProblemAct [facility] Insufficient sleep syndrome active 2020-07-22 1 ProblemAct [facility] Anemia, unspecified type active 2024-07-21 8 ProblemAct [facility] Iron deficiency anemia due to chronic blood loss active EncounterDiagnosisAct CT_THS ESME DVT (deep venous thrombosis) ([facility] V24, [facility] V28) active 8 ProblemAct [facility] Neck pain active 2015-09-21 4 ProblemAct [facility] Gout active 4 ProblemAct [facility] Mixed hyperlipidemia active 8 ProblemAct [facility] Type 2 diabetes mellitus, with long-term current use of insulin ([facility] V24, [facility] V28) active 4 ProblemAct [facility] Synovial cyst of lumbar spine active 2020-06-21 3 ProblemAct [facility] Difficulty walking due to ankle and foot joint active 2024-06-20 9 ProblemAct [facility] Acute on chronic anemia active EncounterDiagnosisAct CT_THS ESME Degeneration of lumbar or lumbosacral intervertebral disc active 2016-02-22 2 ProblemAct [facility] Right hand weakness active 2015-09-22 1 ProblemAct [facility] Neuropathy active 6 ProblemAct ENS_PODCRCT Type 2 diabetes mellitus with other diabetic neurological complication active 2021-07-21 4 ProblemAct ENS_PODCRCT Pressure ulcer of other site, stage 3 active 6 ProblemAct ENS_PODCRCT Pressure ulcer of other site, stage 2 active 2021-06-20 5 ProblemAct ENS_PODCRCT Activity, walking, marching and hiking active 2022-12-22 0 ProblemAct ENS_PODCRCT Wishes to postpone menstruation active 2021-07-22 0 ProblemAct ENS_PODCRCT Contusion of toe active 2022-12-22 0 ProblemAct ENS_PODCRCT Radiculopathy, lumbosacral region active 2022-04-23 6 ProblemAct ENS_PODCRCT Type 2 diabetes mellitus with diabetic polyneuropathy active 6 EncounterDiagnosisAct ENS_PODCRCT Chronic bilateral low back pain with sciatica active 2016-02-22 9 ProblemAct CTTHSFRAN Alcoholic cirrhosis of liver with ascites (CMS/HCC V24, CMS/HCC V28) active EncounterDiagnosisAct CT_THN EMG Alcohol abuse with physiological dependence (CMS/HCC V24, CMS/HCC V28) active EncounterDiagnosisAct C T_THNEMG Abnormal LFTs active EncounterDiagnosisAct CT_THNEMG Metabolic syndrome active EncounterDiagnosisAct CT_THNEMG International normalized ratio above reference range active 2016-04-22 3 ProblemAct ENS_PHCCT Kidney stone active 2020-06-22 0 ProblemAct ENS_PHCCT Swelling of finger of left hand active 2018-06-22 0 ProblemAct ENS_PHCCT Umbilical hernia active 2023-05-23 2 ProblemAct ENS_PHCCT Essential hypertension active 7 ProblemAct ENS_PHCCT Chronic low back pain active 7 ProblemAct ENS_PHCCT Lumbar spondylosis active 2016-07-22 4 ProblemAct ENS_PHCCT Pseudoarthrosis of spine active 2019-12-22 7 ProblemAct ENS_PHCCT Lumbar radiculopathy active 2015-02-21 0 ProblemAct ENS_PHCCT History of operative procedure on lumbar spinal structure active 2020-09-21 1 ProblemAct ENS_PHCCT Paresthesia of upper limb active 2015-09-22 1 ProblemAct ENS_PHCCT Chronic anemia active 2023-08-22 4 ProblemAct ENS_PHCCT Iron deficiency anemia active 2020-06-22 0 ProblemAct ENS_PHCCT Decompensated cirrhosis of liver active 2024-07-23 0 ProblemAct ENS_PHCCT Mixed hyperlipidemia active 8 ProblemAct ENS_PHCCT Stenosis of lumbar vertebral foramen active 2015-03-22 1 ProblemAct ENS_PHCCT Acute congestive heart failure active 2023-11-21 8 ProblemAct ENS_PHCCT History of lumbar fusion active 2015-02-21 0 ProblemAct ENS_PHCCT Acute posthemorrhagic anemia active 5 ProblemAct ENS_PHCCT Acute kidney injury active 2016-04-22 3 ProblemAct ENS_PHCCT History of pulmonary embolus active 2016-04-22 3 ProblemAct ENS_PHCCT Neck pain active 2015-09-21 4 ProblemAct ENS_PHCCT Gastro-esophageal reflux disease with esophagitis active 2024-07-23 0 ProblemAct ENS_PHCCT Synovial cyst of lumbar spine active 2020-06-21 3 ProblemAct ENS_PHCCT Monitoring status active 2022-07-21 4 ProblemAct ENS_PHCCT Hyperosmolar non-ketotic state due to diabetes mellitus active 3 ProblemAct ENS_PHCCT Occult blood detected in feces active 1 ProblemAct ENS_PHCCT Muscle pain active 2015-09-21 8 ProblemAct ENS_PHCCT Insulin treated type 2 diabetes mellitus active 6 ProblemAct ENS_PHCCT Weakness of right hand active 2015-09-22 1 ProblemAct ENS_PHCCT Dehydration active 5 ProblemAct ENS_PHCCT Degeneration of lumbosacral intervertebral disc active 2016-02-22 2 ProblemAct ENS_PHCCT Acute deep venous thrombosis of left femoral vein active 7 ProblemAct ENS_PHCCT Cellulitis active 2023-11-21 4 ProblemAct ENS_PHCCT Disorder of shoulder active 2015-09-21 4 ProblemAct ENS_PHCCT Gout active 2016-01-22 7 ProblemAct ENS_PHCCT Hyperglycemia active 4 ProblemAct ENS_PHCCT Asthenia active 2016-04-22 3 ProblemAct ENS_PHCCT Diastasis recti active 2023-05-23 2 ProblemAct ENS_PHCCT History of deep vein thrombosis active 2022-07-21 4 ProblemAct ENS_PHCCT Anemia active 1 ProblemAct ENS_PHCCT Chronic kidney disease stage 3 active 2020-06-22 0 ProblemAct ENS_PHCCT Iron deficiency anemia due to blood loss active 6 ProblemAct ENS_PHCCT Degeneration of lumbar intervertebral disc active 2015-03-22 1 ProblemAct ENS_PHCCT Normocytic anemia active 9 ProblemAct ENS_PHCCT 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 9 ProblemAct ENS_PHCCT Cervical radiculitis active 2015-09-21 4 ProblemAct ENS_PHCCT Hypercalcemia active 2021-08-20 8 ProblemAct ENS_PHCCT Gouty tophus of hand active 2022-12-21 3 ProblemAct ENS_AONECT Anxiety disorder, unspecified active ProblemAct CT_PHYSONE Shortness of breath active 5 ProblemAct CT_PHYSONE Gout, unspecified active ProblemAct C T_PHYSONE Wheezing active 5 ProblemAct CT_PHYSONE Pulmonary embolism, history of active ProblemAct CT_PHYSONE Pain in leg, unspecified active ProblemAct CT_PHYSONE Acute embolism and thrombosis of unspecified deep veins of unspecified lower extremity active ProblemAct CT_PHYSONE Diaphragmatic hernia without obstruction or gangrene active ProblemAct CT_PHYSONE Anemia, unspecified active 5 ProblemAct CT_PHYSONE Hypertension active ProblemAct CT_PHY SONE Acute CHF (congestive heart failure) active 2023-11-21 8 ProblemAct CTTHSFRAN Type 2 diabetes mellitus with hypoglycemia without coma, with long-term current use of insulin (HCC) active EncounterDiagnosisAct CTTHS ESME Degenerative lumbar disc active 2015-03-22 1 ProblemAct CTTHSFRAN Monitoring for long-term anticoagulant use active 2022-07-21 4 ProblemAct CTTHSFRAN Personal history of DVT (deep vein thrombosis) active 2022-07-21 4 ProblemAct CTTHSFRAN Cellulitis active 2023-11-21 4 ProblemAct CTTHSFRAN S/P lumbar fusion active 2015-02-21 0 ProblemAct CTTHSFRAN History of pulmonary embolism active 2016-04-22 3 ProblemAct CTTHSFRAN Status post lumbar surgery active 2020-09-21 1 ProblemAct CTTHSFRAN Type 2 diabetes mellitus, with long-term current use of insulin active 6 ProblemAct CTTHSFRAN Gout active ProblemAct CTTHSFRAN DDD (degenerative disc disease), lumbosacral active 2016-02-22 2 ProblemAct HHCCT Chronic kidney disease, unspecified active EncounterDiagnosisAct CTTHNEMG GI bleed active 6 ProblemAct HHCCT Symptomatic anemia active 5 ProblemAct H[facility]CT Gout active 6 ProblemAct HHCCT Immunizations Vaccine Date Source Lot Number Status Pneumococcal conjugate 20 va lent (Prevnar 20, PCV 20) 2mo and older 10/21/2023 [facility] [id number] comple aide Tdap Tetanus diptheria acell ular pertussis (Boostrix; Adacel) 7yo and older 10/21/2023 [facility] [id number] completed Tdap Tetanus diptheria acell ular pertussis (Boostrix; Adacel) 7yo and older 10/21/2023 [facility] [id number] completed Influenza Quadrivalent, 0.5m l, preservative free (Fluarix; FluLaval; Fluzone) ages 6mo and older (Afluria) 3yo and older 02/12/2023 [facility] [id number] completed Influenza Quadrivalent, 0.5m l, preservative free (Fluarix; FluLaval; Fluzone) ages 6mo and older (Afluria) 3yo and older 02/12/2023 [facility] [id number] completed [employer] (ages 12 & older) Bivalent, COVID-19 [facility]20[facility] completed Pfizer (ages 12 & older) Bivalent, COVID-19 12/21/2022 [facility] completed SARS-COV-2 (COVID-19) vaccin e, mRNA, spike protein, LNP, bivalent booster, preservative free, 30 mcg/0.3 mL dose, guillermina-sucrose formulation 03/03/2022 [facility] [id number] complet SARS-COV-2 (COVID-19) vaccin e, mRNA, spike protein, LNP, preservative free, 30 mcg/0.3mL dose 03/03/2022 [facility] [id number] completed Pfizer SARS-CoV-2 COVID-19, mRNA, LNP-S, preservative free 10/24/2021 [facility] [id number] completed SARS-COV-2 (COVID-19) vaccin e, mRNA, spike protein, LNP, preservative free, 30 mcg/0.3mL dose 04/05/2021 [facility] [id number] completed Influenza Quadrivalent, 0.5m l, preservative free (Fluarix; FluLaval; Fluzone) ages 6mo and older (Afluria) 3yo and older 01/13/2021 [facility] [id number] completed SARS-COV-2 (COVID-19) vaccin e, mRNA, spike protein, LNP, preservative free, 30 mcg/0.3mL dose 08/25/2020 [facility] [id number] completed SARS-COV-2 (COVID-19) vaccin e, mRNA, spike protein, LNP, preservative free, 30 mcg/0.3mL dose 08/03/2020 [facility] [id number] completed Zoster recombinant (Shingrix ) 19yo and older 03/02/2020 [facility] [id number] completed Influenza Quadrivalent, 0.5m l, preservative free (Fluarix; FluLaval; Fluzone) ages 6mo and older (Afluria) 3yo and older 01/25/2020 [facility] [id number] completed Zoster recombinant (Shingrix ) 19yo and older 12/22/2019 [facility] [id number] completed Influenza Quadrivalent, 0.5m l, preservative free (Fluarix; FluLaval; Fluzone) ages 6mo and older (Afluria) 3yo and older 02/25/2019 [facility] [id number] completed Influenza Quadrivalent, 0.5m l, preservative free (Fluarix; FluLaval; Fluzone) ages 6mo and older (Afluria) 3yo and older 02/25/2019 [facility] [id number] completed Pneumococcal conjugate 13 va lent (Prevnar 13, PCV13) 2mo and older 02/25/2019 [facility] [id number] complet ed Influenza Quadravalent, MDCK , 0.5ml, preservative free (Flucelvax) 6mo and older 02/13/2018 [facility] [id number] completed Influenza Quadrivalent, with preservative (Fluzone; Afluria) 6mo and older 01/17/2017 [facility] [id number] completed Encounters Encounter Type Encounter Reason Primary Diagnosis Location Date Ambulatory Other fracture of right lower leg, subsequent encounter for closed fracture with routine healing Other fracture of right lower leg, subsequent encounter for closed fracture with routine healing [facility] 5 Ambulatory [facility] 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) [facility] 5 Ambulatory [facility] 5 Ambulatory 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) [facility] 5 Ambulatory [facility] 5 Ambulatory Monoclonal gammopathy Monoclonal gammopat [facility] 5 Ambulatory Monoclonal gammopathy Monoclonal gammopat [facility] 5 Ambulatory [facility] 5 Ambulatory Displaced fracture o f lateral malleolus of left fibula, subsequent encounter for closed fracture with routine healing Displaced fracture of lateral malleolus of left fibula, subsequent encounter for closed fracture with routine healing [facility] 5 Ambulatory Acute posthemorrhagi c anemia Acute posthemorrhagic anemia [facility] 5 Ambulatory Follow-up Low back pain, unspecified [facility] 5 Ambulatory Displaced fracture o f lateral malleolus of left fibula, subsequent encounter for closed fracture with routine healing Displaced fracture of lateral malleolus of left fibula, subsequent encounter for closed fracture with routine healing [facility] 5 Ambulatory 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) [facility] 5 Ambulatory Follow-up Other specified abnormal findings of blood chemistry [facility] 5 Ambulatory Displaced fracture o f lateral malleolus of left fibula, subsequent encounter for closed fracture with routine healing Displaced fracture of lateral malleolus of left fibula, subsequent encounter for closed fracture with routine healing [facility] 5 Ambulatory Acute posthemorrhagi c anemia Acute posthemorrhagic anemia [facility] 5 Ambulatory 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) [facility] 5 Ambulatory Acute posthemorrhagi c anemia Acute posthemorrhagic anemia [facility] 5 Ambulatory Displaced fracture o f lateral malleolus of left fibula, subsequent encounter for closed fracture with routine healing Displaced fracture of lateral malleolus of left fibula, subsequent encounter for closed fracture with routine healing [facility] 5 Ambulatory 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) [facility] 5 Ambulatory Displaced fracture o f lateral malleolus of left fibula, subsequent encounter for closed fracture with routine healing Displaced fracture of lateral malleolus of left fibula, subsequent encounter for closed fracture with routine healing [facility] 5 Ambulatory [facility] 5 Inpatient ABNORMAL LABS Anemia, unspecified [facility] 5 Ambulatory 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) [facility] 5 Ambulatory Follow-up Iron deficiency anemia secondary to blood loss (chronic) [facility] 5 Ambulatory [facility] 5 Ambulatory [facility] 5 Ambulatory [facility] [place] 5 Emergency low hemoglobin Chronic gout, unspecified, without tophus (tophi) [facility] 5 Ambulatory 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) [facility] 5 Ambulatory Other fracture of right lower leg, subsequent encounter for closed fracture with routine healing Other fracture of right lower leg, subsequent encounter for closed fracture with routine healing [facility] 5 Ambulatory Follow-up Follow-up [facility] 5 Ambulatory Displaced fracture o f lateral malleolus of left fibula, subsequent encounter for closed fracture with routine healing Displaced fracture of lateral malleolus of left fibula, subsequent encounter for closed fracture with routine healing [facility] 5 Ambulatory Displaced fracture o f lateral malleolus of left fibula, subsequent encounter for closed fracture with routine healing Displaced fracture of lateral malleolus of left fibula, subsequent encounter for closed fracture with routine healing [facility] 5 Ambulatory Chronic gout, unspecified, without tophus (tophi) Chronic gout, unspecified, without tophus (tophi) [facility] 5 Ambulatory Other fracture of right lower leg, subsequent encounter for closed fracture with routine healing Other fracture of right lower leg, subsequent encounter for closed fracture with routine healing [facility] 5 Ambulatory Other fracture of right lower leg, subsequent encounter for closed fracture with routine healing Other fracture of right lower leg, subsequent encounter for closed fracture with routine healing [facility] 5 Ambulatory Difficulty in walkin g, not elsewhere classified Difficulty in walking, not elsewhere classified [facility] 5 Ambulatory [facility] 5 Ambulatory Acute posthemorrhagi c anemia Acute posthemorrhagic anemia [facility] 5 Ambulatory 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) [facility] 5 Ambulatory 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) [facility] 5 Ambulatory 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) [facility] 5 Inpatient ABN LABS Anemia, unspecified [facility] 5 Ambulatory 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) [facility] 5 Ambulatory 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) [facility] 5 Ambulatory IV Medication Iron deficiency anemia secondary to blood loss (chronic) [facility] 5 Ambulatory Other fracture of right lower leg, subsequent encounter for closed fracture with routine healing Other fracture of right lower leg, subsequent encounter for closed fracture with routine healing [facility] 5 Ambulatory Other fracture of right lower leg, subsequent encounter for closed fracture with routine healing Other fracture of right lower leg, subsequent encounter for closed fracture with routine healing [facility] 5 Ambulatory IV Medication Iron deficiency anemia secondary to blood loss (chronic) [facility] 5 Ambulatory [facility] 5 Ambulatory 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) [facility] 5 Ambulatory Transitional Care Management Transitional Care Management [facility] 5 Ambulatory 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) [facility] 5 Ambulatory 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) [facility] 5 Ambulatory [facility] 5 Inpatient LEVEL 1 Shortness of breath [facility] 5 Ambulatory 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) [facility] 5 Ambulatory 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) [facility] 4 Ambulatory 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) [facility] 4 Ambulatory Type 2 diabetes mellitus without complications Type 2 diabetes mellitus without complications [facility] 4 Ambulatory port draw Monoclonal gammopathy [facility] 4 Ambulatory other Iron deficiency anemia secondary to blood loss (chronic) [facility] 4 Ambulatory Follow-up Nicotine depende nce, unspecified, uncomplicated [facility] 4 Ambulatory 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) [facility] 4 Ambulatory [facility] 4 Ambulatory 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) [facility] 4 Ambulatory Type 2 diabetes mellitus with hypoglycemia without coma Type 2 diabetes mellitus with hypoglycemia without coma [facility] 4 Ambulatory Type 2 diabetes mellitus with hypoglycemia without coma Type 2 diabetes mellitus with hypoglycemia without coma [facility] 4 Ambulatory 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) [facility] 4 Ambulatory 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) [facility] 4 Ambulatory 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) [facility] 4 Ambulatory 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) [facility] 4 Ambulatory Anemia, unspecified Anemia, unspecified [facility] 4 Ambulatory 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) [facility] 4 Ambulatory Anemia, unspecified Anemia, unspecified [facility] 4 Ambulatory 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) [facility] 4 Ambulatory Hypomagnesemia Hypomagnesemia [facility] 4 Ambulatory Chronic diastolic (congestive) heart failure Chronic diastolic (congestive) heart failure [facility] 4 Ambulatory 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) [facility] 4 Ambulatory 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) [facility] 4 Ambulatory Chronic diastolic (congestive) heart failure Chronic diastolic (congestive) heart failure [facility]ulatory Chronic diastolic (congestive) heart failure Chronic diastolic (congestive) heart failure [facility] Ambulatory Unspecified fall, initial encounter Unspecified fall, initial encounter [facility] 4 Ambulatory 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) [facility] 4 Ambulatory [facility] [place] 4 Inpatient Shortness of breath Shortness of breath [facility] 4 Inpatient Cellulitis, unspecified Cellulitis, unspecified [facility] 4 Emergency Other specified soft tissue disorders Other specified soft tissue disorders [facility] 4 Ambulatory 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) [facility] 4 Ambulatory 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) [facility] 4 Ambulatory 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) [facility] 4 Ambulatory Iron deficiency anemia, unspecified Iron deficiency anemia, unspecified [facility] Ambulatory 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) [facility] 4 Ambulatory 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) [facility] 4 Ambulatory 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) [facility] 4 Ambulatory 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) [facility] 4 Ambulatory 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) [facility] 4 Ambulatory 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) [facility] 4 Ambulatory Anemia, unspecified Anemia, unspecified [facility] 4 Ambulatory Anemia, unspecified Anemia, unspecified [facility] 4 Ambulatory 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) [facility] 4 Ambulatory Mixed hyperlipidemia Mixed hyperlipidemia [facility] Ambulatory Chronic kidney disease, unspecified Chronic kidney disease, unspecified [facility] 4 Ambulatory 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) [facility] 4 Ambulatory Anemia, unspecified Anemia, unspecified [facility] 4 Ambulatory [facility] Ambulatory Unspecified abnormal finding in specimens from other organs, systems and tissues Unspecified abnormal finding in specimens from other organs, systems and tissues [facility] 4 Inpatient Anemia, unspecified Anemia, unspecified [facility] 4 Ambulatory Anemia, unspecified Anemia, unspecified [facility] 4 Ambulatory 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) [facility] 4 Ambulatory 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) [facility] 4 Ambulatory Follow-up Follow-up [facility] 4 Inpatient Anemia, unspecified Anemia, unspecified [facility] 4 Ambulatory Anemia, unspecified Anemia, unspecified [facility] 4 Ambulatory 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) [facility] 4 Ambulatory 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) [facility] 4 Ambulatory 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) [facility] 4 Ambulatory Unspecified abnormal finding in specimens from other organs, systems and tissues Unspecified abnormal finding in specimens from other organs, systems and tissues [facility] 4 Ambulatory Dehydration Dehydration [facility] 4 Inpatient Dizziness and giddiness Dizziness and giddiness [facility] 4 Ambulatory 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) [facility] 4 Ambulatory 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) [facility] 4 Ambulatory 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) [facility] 4 Ambulatory Anemia, unspecified Anemia, unspecified [facility] 4 Ambulatory Personal history of other venous thrombosis and embolism Personal history of other venous thrombosis and embolism [facility] 4 Ambulatory Type 2 diabetes mellitus without complications Type 2 diabetes mellitus without complications [facility] 4 Ambulatory [facility] [place] 4 Inpatient Anemia, unspecified Anemia, unspecified [facility] 4 Emergency Shortness of breath Shortness of breath [facility] 4 Ambulatory [facility] 4 Ambulatory 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) [facility] 3 Ambulatory 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) [facility] 3 Ambulatory 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) [facility] 3 Ambulatory 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) [facility] 3 Ambulatory 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) [facility] 3 Ambulatory Type 2 diabetes mellitus without complications Type 2 diabetes mellitus without complications [facility] Ambulatory 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) [facility] 3 Ambulatory [facility] [place] 3 Ambulatory [facility] [place] 3 Ambulatory 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) [facility] 3 Ambulatory 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) [facility] Ambulatory [facility] [place] 3 Inpatient Gastrointestinal hemorrhage, unspecified Gastrointestinal hemorrhage, unspecified [facility] 3 Emergency Anemia, unspecified [facility] 3 Ambulatory Personal history of other venous thrombosis and embolism [facility] 3 Ambulatory Personal history of other venous thrombosis and embolism [facility] 3 Care Team Organization Name Specialty Phone Email Start Date End Da te [facility] [address] 025 [facility], 07/01/2024 [facility] [employer] 05/11/2024 [facility] [employer] 04/25/2024 [facility] [employer] 04/11/2024 [facility] 04/10/2024 [facility] [employer] 03/11/2024 03/13/20 24 [facility] 02/25/2024 [facility] 02/25/2024 [facility] 02/24/2024 [facility] 02/24/2024 [facility] 05/12/2023 07/08/[address] [facility] Primary Care 05/12/2023 [facility] 04/27/2023 07/08/2024 [facility] Primary Care 04/26/2023 04/26/2023 [facility] 04/26/2023 [facility] 01/04/2023 [facility] 12/26/2022 09/09/2022 [facility] 11/29/2022 11/30/19 [facility] 0 11/02/2022 11/02/2022 [facility] 10/27/2022 [facility] 023 10/25/2022 [facility] 10/05/2022 12/09/2023 [facility] 09/22/2022 [facility] 04/03/2022 12/09/2023 [facility] 02/21/2022 [facility] 08/24/2021 08/24/2021 [facility]
--- OUTSIDE RECORDS SUMMARY | 2024-09-02 13:33 | XMS_ITS | Clinical Summary ---
Author Organization [facility] [address] Address [address] [place] [address] Phone Care Team Providers Care Rd Mechanical Engineer Name Role Phone Rios Sousa MD Primary Care Provider [phone] Allergies Active Allergy Reactions Criticality Noted Date Comments Bee Venom Protein (Honey Bee) Anaphylaxis High 02/27/2016 Rivaroxaban Rash,Other Low 09/20/2016 Other reaction(s): Not available Medications ferrous sulfate (IRON ORAL) 2 (two) times a day. Iron Combinations (IRON COMPLEX PO): Take 1 capsule by mouth daily. - Oral Active magnesium oxide 400 mg magnesium capsule Take 400 mg by mouth 2 (two) times a day. 08/27/19 24 Active EPINEPHrine (EPIPEN) 0.3 mg/0.3 mL injection INJECT 0.3 ML (0.3 MG TOTAL) INTO THE MUSCLE ONCE FOR 1 DOSE 10/30/19 24 Active Tresiba FlexTouch U-100 100 unit/mL (3 mL) injection pen Inject 12 Units under the skin at bedtime. 02/19/20 24 Active carvediloL (Coreg) 12.5 mg tabletIndication s:Primary hypertension Take 1 tablet (12.5 mg total) by mouth 2 (two) times a day with meals. 180 each 1 03/31/20 24 Active cyanocobalamin (VITAMIN B-12) 500 mcg tabletIndication s:Anemia, unspecified type Take 1 tablet (500 mcg total) by mouth 1 (one) time each day. 90 tablet 1 04/06/20 24 Active buPROPion SR (WELLBUTRIN SR) 150 mg 12 hr tabletIndication s:Smoking TAKE ONE TABLET (150MG TOTAL) BY MOUTH ONCE DAILY DO NOT CRUSH, CHEW, OR SPIT. 30 tablet 11 04/16/20 24 Active amitriptyline (ELAVIL) 50 mg tablet TAKE ONE TABLET (50 MG TOTAL) BY MOUTH AT BEDTIME 30 tablet 04/16/20 24 Active Eliquis 5 mg tabletIndication s:Iron deficiency anemia due to chronic blood loss,MGUS (monoclonal gammopathy of unknown significance) TAKE ONE TABLET BY MOUTH EVERY TWELVE HOURS 180 tablet 11 06/12/19 25 Active torsemide (DEMADEX) 20 mg tabletIndication s:Primary hypertension Take 1 tablet (20 mg total) by mouth 1 (one) time each day. 90 tablet 1 06/17/19 25 Active pantoprazole (PROTONIX) 40 mg EC tabletIndication s:Gastroesophage al reflux disease, unspecified whether esophagitis present Take 1 tablet (40 mg total) by mouth 2 (two) times a day. 90 tablet 1 06/30/19 25 Active semaglutide (Ozempic) 1 mg/dose (4 mg/3 mL) injection penIndications:T ype 2 diabetes mellitus with hyperglycemia, with long-term current use of insulin ([facility] V24, [facility] V28) INJECT 1 MG UNDER THE SKIN EVERY 7 (SEVEN) DAYS. 3 mL 2 07/08/19 25 025 Active ketoconazole (NIZORAL) 2 % shampoo APPLY TOPICALLY TWICE DAILY APPLY TO DAMP SKIN, LATHER, LEAVE ON FOR 5 MINUTES AND RINSE 07/09/19 25 Active colchicine (COLCRYS) 0.6 mg tabletIndication s:Hyperuricemia Take 1 tablet (0.6 mg total) by mouth 1 (one) time each day. 90 tablet 07/23/19 25 Active insulin aspart (NovoLOG U-100 Insulin aspart) 100 unit/mL injection Inject 13 Units under the skin 3 (three) times a day before meals. 07/25/19 25 Active allopurinoL (ZYLOPRIM) 300 mg tabletIndication s:Chronic gout without tophus, unspecified cause, unspecified site Take 1 tablet (300 mg total) by mouth 1 (one) time each day. 07/25/19 25 026 Active pen needle, diabetic (BD Xenia 2nd Gen Pen Needle) 32 gauge x 5/32 needleIndication s:Type 2 diabetes mellitus without complication, with long-term current use of insulin (CMS/[facility] V24, CMS/HCC V28) Inject into the skin 4 (four) times a day. 200 each 2 07/30/19 25 Active pregabalin (LYRICA) 150 mg capsuleIndicatio ns:Chronic low back pain, unspecified back pain laterality, unspecified whether sciatica present Take 2 capsules (300 mg total) by mouth 2 (two) times a day. Max Daily Amount: 600 mg 120 each 08/26/19 25 025 Active FreeStyle Guanako 3 Sensor deviceIndication s:Type 2 diabetes mellitus without complication, with long-term current use of insulin (CMS/[facility] V24, CMS/HCC V28) 1 EA by Other route every 14 (fourteen) days. Box = Kit = EA 6 kit 2 09/02/19 25 Active FreeStyle Guanako 3 Sensor deviceIndication s:Type 2 diabetes mellitus without complication, with long-term current use of insulin (CMS/[facility] V24, CMS/HCC V28) 1 EA by Other route every 14 (fourteen) days. Box = Kit = EA 6 kit 2 06/15/19 25 025 Discontinu ed(Reorder ) pregabalin (LYRICA) 150 mg capsuleIndicatio ns:Chronic low back pain, unspecified back pain laterality, unspecified whether sciatica present Take 1 capsule (150 mg total) by mouth 2 (two) times a day. Max Daily Amount: 300 mg 50 each 06/30/19 25 025 Discontinu ed(Reorder ) varenicline tartrate (CHANTIX) 1 mg tabletIndication s:Smoking Take 1 tablet (1 mg total) by mouth 2 (two) times a day. 60 tablet 07/17/19 25 025 Discontinu ed(Discont inued by another clinician) insulin aspart, niacinamide, (Fiasp FlexTouch U-100 Insulin) 100 unit/mL (3 mL) injection penIndications:T ype 2 diabetes mellitus with hyperglycemia, with long-term current use of insulin (CMS/[facility] V24, CMS/HCC V28) Inject 10-20 Units under the skin 3 (three) times a day before meals. 15 mL 2 07/21/19 25 025 Discontinu ed(Stop Taking at Discharge) varenicline tartrate (CHANTIX) 1 mg tablet Take 1 tablet (1 mg total) by mouth 2 (two) times a day. 08/19/19 25 025 Discontinu ed(Therapy completed) valsartan (DIOVAN) 160 mg tablet Take 1 tablet (160 mg total) by mouth 1 (one) time each day. 08/10/19 025 Discontinu ed(Therapy completed) Active Problems Problem Noted Date Diagnosed Date Anemia, unspecified type 08/07/2024 Closed fracture of distal la teral malleolus of ankle, left, with routine healing, subsequent encounter 07/08/2024 Difficulty walking due to ankle and foot joint 0 07/08/2024 SOB (shortness of breath) 05/17/2024 Closed fracture of right ankle 05/17/2024 Gout 12/25/2023 Type 2 diabetes mellitus, wi long-term current use of insulin ([facility] V24, [facility] V28) 12/25/2023 Acute CHF (congestive heart failure) ([facility] V24, 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 V24, [facility] V28) 05/25/2021 Diabetic hyperosmolar non-ke totic state ([facility] V24, [facility] V28) 05/25/2021 Insufficient sleep syndrome 08/10/2020 Stage 3 chronic kidney disease ([facility] V24, [facility] V28) 07/19/2020 Renal stone 07/19/2020 Iron deficiency anemia 07/19/2020 Synovial cyst of lumbar spine 07/12/2020 Obstructive sleep apnea 05/10/2020 DVT (deep venous thrombosis) ([facility] V24, [facility] V28) 03/29/2020 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 Snoring 03/29/2020 Upper airway resistance syndrome 03/29/2020 Pseudoarthrosis of lumbar spine 01/07/2020 Swelling of left little finger 07/19/2018 Other spondylosis with radiculopathy, lumbar reg ion 08/13/2016 Iron deficiency anemia secondary to blood loss ( chronic) 06/25/2016 Overview (12/25/2023): Apr 2016 Iron deficiency anemia due to chronic blood loss 06/25/2016 Overview (12/25/2023): Apr 2016 Weakness 05/04/2016 Supratherapeutic INR 05/04/2016 IVETTE (acute kidney injury) ([facility] V24) 05/04/19 17 Acute kidney injury ([facility] V24) 05/04/2016 Chronic bilateral low back pain with sciatica Degeneration of lumbar or lumbosacral interverte bral disc 03/13/2016 Hypertensive disorder 02/27/2016 Chronic low back pain 02/27/2016 Acute deep vein thrombosis ( DVT) of femoral vein of left lower extremity ([facility] V24, [facility] V28) 02/27/2016 Right hand weakness 10/11/2015 Numbness and tingling of right upper extremity 0 10/11/2015 Myalgia 10/08/2015 Shoulder impingement 10/04/2015 Neck pain 10/04/2015 Radiculitis of right cervical region 10/04/2015 Cervical radiculitis 10/04/2015 Lumbar foraminal stenosis 04/01/2015 DDD (degenerative disc disease), lumbosacral 02/2015 Lumbar radiculopathy 03/11/2015 Encounters Date Type Department Care Team Description 09/01/2024 1:45 PM EDT Office Visit [facility] - [facility] [address] [place] [address] Woo Le PA Closed fracture of right ankle with routine healing, subsequent encounter (Primary Dx) 09/01/2024 1:21 PM EDT - 09/01/2024 11:59 PM EDT Hospital Encounter [facility] [address] [place] [address] Closed fracture of right ankle with routine healing, subsequent encounter Discharge Disposition: Home or Self Care 09/01/2024 9:00 AM EDT [facility] [facility] [address] [place] [phone] Iron deficiency anemia due to chronic blood loss (Primary Dx) 09/01/2024 9:00 AM EDT Clinic Lab Collection [place] [facility] On[facility] [address] [place] [phone] Acute on chronic anemia 08/28/2024 9:00 AM EDT Procedure visit [facility] [address] [place] [phone] Seferion Leo PA MGUS (monoclonal gammopathy of unknown significance) (Primary Dx); Iron deficiency anemia due to chronic blood loss; Acute on chronic anemia 08/28/2024 8:44 AM EDT - 08/28/2024 11:59 PM EDT [facility] [facility] [address] [place] [phone] MGUS (monoclonal gammopathy of unknown significance); Iron deficiency anemia due to chronic blood loss; Acute on chronic anemia Discharge Disposition: Home or Self Care 08/28/2024 8:44 AM EDT - 08/28/2024 11:59 PM EDT [facility] [address] [place] [address] Discharge Disposition: Home or Self Care 08/27/2024 2:30 PM EDT Treatment [place] [facility] [address] [phone] Alondra Lai, FINANCE EFFECTIVENESS MANAGER Closed fracture of distal lateral malleolus of ankle, left, with routine healing, subsequent encounter (Primary Dx); Difficulty walking due to ankle and foot joint 08/26/2024 10:20 AM EDT - 08/26/2024 11:59 PM EDT [facility] [facility] [address] [place] [phone] Acute blood loss anemia (Primary Dx); Acute on chronic anemia Discharge Disposition: Home or Self Care 08/25/2024 2:30 PM EDT Office Visit [facility] [place] [address] [facility] [address] [place] [phone] Yoli Taylor, JANNETH Chronic low back pain, unspecified back pain laterality, unspecified whether sciatica present 08/25/2024 1:00 PM EDT Treatment [facility] [place] [address] [place] [phone] Alondra Lai, FINANCE EFFECTIVENESS MANAGER Closed fracture of distal lateral malleolus of ankle, left, with routine healing, subsequent encounter (Primary Dx); Difficulty walking due to ankle and foot joint 08/24/2024 8:49 AM EDT - 08/24/2024 11:59 PM EDT [facility] [facility] [address] [place] [phone] Iron deficiency anemia due to chronic blood loss Discharge Disposition: Home or Self Care 08/20/2024 1:20 PM EDT Office Visit [facility] [address] [place] [address] Leonid Watson, DO Abnormal LFTs (Primary Dx); Alcoholic cirrhosis of liver with ascites (CMS/HCC V24, CMS/HCC V28); Alcohol abuse with physiological dependence (CMS/HCC V24, CMS/HCC V28); Metabolic syndrome; Anemia, unspecified type 08/19/2024 11:30 AM EDT Treatment [facility] [place] [address] [place] [phone] Kozaczka, Alondra J, FINANCE EFFECTIVENESS MANAGER Closed fracture of distal lateral malleolus of ankle, left, with routine healing, subsequent encounter (Primary Dx); Difficulty walking due to ankle and foot joint 08/18/2024 7:33 AM EDT - 08/18/2024 11:59 PM EDT Hospital [facility] [address] [place] [phone] Acute blood loss anemia (Primary Dx); Acute on chronic anemia Discharge Disposition: Home or Self Care 08/17/2024 1:00 PM EDT Office Visit [place] [facility] On[facility] [address] [place] [phone] Vanesa Mireles NP Acute blood loss anemia (Primary Dx); Acute on chronic anemia; Iron deficiency anemia due to chronic blood loss 08/17/2024 12:30 PM EDT Clinic Lab Collection [facility] [address] [place] [phone] Iron deficiency anemia due to chronic blood loss; MGUS (monoclonal gammopathy of unknown significance); Acute blood loss anemia 08/17/2024 Telephone [facility] [address] [place] [address] Dionne Thompson 08/14/2024 11:00 AM EDT Treatment [place] [facility] [address] [phone] Michelle Polk D, PT Closed fracture of distal lateral malleolus of ankle, left, with routine healing, subsequent encounter (Primary Dx); Difficulty walking due to ankle and foot joint 08/13/2024 3:00 PM EDT - 08/13/2024 11:59 PM EDT Hospital En[facility] [address] [place] [phone] Iron deficiency anemia due to chronic blood loss; MGUS (monoclonal gammopathy of unknown significance) Discharge Disposition: Home or Self Care 08/13/2024 Telephone Hematology Oncology [facility] [address] [facility] [address] [place] [phone] Vanesa Mireles NP just out of hospital (And he needs a follow up and CBC) 08/12/2024 11:00 AM EDT Treatment [facility] [place] [address] [facility] [address] [place] [phone] Michelle Polk D, PT Closed fracture of distal lateral malleolus of ankle, left, with routine healing, subsequent encounter (Primary Dx); Difficulty walking due to ankle and foot joint 08/12/2024 Plan of Care Documentation [facility] [place] [address] [place] [phone] 08/04/2024 2:37 PM EDT - 08/09/2024 2:28 PM EDT Hospital Encounter [facility] [address] [place] [address] Douglas Cao MD Kochar, MD Shahriar Lee Vikram, MD Cota Vargas, Evelyn, MD Anemia, unspecified type (Primary Dx); Stool guaiac positive Discharge Disposition: Home or Self Care 08/04/2024 1:30 PM EDT Office Visit [facility] [address] [place] [address] Roseline Nieto PA Iron deficiency anemia due to chronic blood loss 08/04/2024 1:00 PM EDT Clinic Lab Collection [facility] [address] [place] [phone] Iron deficiency anemia due to chronic blood loss 07/28/2024 Telephone [facility] [address] [place] [address] Shravan Dodd sitoby 07/22/2024 1:34 PM EDT - 07/24/2024 3:03 PM EDT Hospital Encounter [facility] [address] [place] [address] Derek Pennington MD Ryan, Emily A, DO Kapoor, Rachna, MD Pauig, Vanessa T, MD Chronic gout without tophus, unspecified cause, unspecified site Discharge Disposition: Home or Self Care 07/22/2024 12:05 PM EDT - 07/22/2024 11:59 PM EDT Hospital Encounter [facility] [address] [place] [phone] Iron deficiency anemia due to chronic blood loss Discharge Disposition: Home or Self Care 07/22/2024 11:00 AM EDT Treatment [facility] [place] [address] [place] [address] Joelel Alondra J, FINANCE EFFECTIVENESS MANAGER Closed fracture of distal lateral malleolus of ankle, left, with routine healing, subsequent encounter (Primary Dx); Difficulty walking due to ankle and foot joint 07/21/2024 Telephone [facility] [address] [place] [phone] Liss John RN 07/20/2024 1:45 PM EDT Office [facility] [place] [address] [place] [address] Joann Strauss PA Type 2 diabetes mellitus with hyperglycemia, with long-term current use of insulin (CMS/[facility] V24, CMS/HCC V28) (Primary Dx); Hypertension, unspecified type 07/17/2024 3:00 PM EDT Treatment [facility] [place] [address] [place] [phone] Michelle Polk, PT Closed fracture of distal lateral malleolus of ankle, left, with routine healing, subsequent encounter (Primary Dx); Difficulty walking due to ankle and foot joint 07/14/2024 3:30 PM EDT Treatment [facility] [place] [address] [place] [phone] Alondra Lai, FINANCE EFFECTIVENESS MANAGER Closed fracture of distal lateral malleolus of ankle, left, with routine healing, subsequent encounter (Primary Dx); Closed fracture of right ankle with routine healing, subsequent encounter; Difficulty walking due to ankle and foot joint 07/13/2024 11:00 AM EDT Office Visit [facility] [place] [address] [facility] [address] [place] [phone] Kiya Crespo PA Type 1 diabetes mellitus with other specified complication (CMS/HCC V24, CMS/HCC V28) (Primary Dx); Chronic gout without tophus, unspecified cause, unspecified site; Elevated LDL cholesterol level 07/10/2024 10:45 AM EDT Office Visit [facility] [address] [place] [address] Galdino Pham PA Closed fracture of right ankle with routine healing, subsequent encounter (Primary Dx) 07/10/2024 10:23 AM EDT - 07/10/2024 11:59 PM EDT Hospital Encounter [facility] [address] [place] [address] Closed fracture of right ankle with routine healing, subsequent encounter Discharge Disposition: Home or Self Care 07/08/2024 2:00 PM EDT Evaluation [facility] [place] [address] [place] [phone] Michelle Polk, PT Difficulty walking due to ankle and foot joint (Primary Dx); Closed fracture of distal lateral malleolus of ankle, left, with routine healing, subsequent encounter 07/08/2024 10:25 AM EDT - 07/08/2024 11:59 PM EDT [facility] [address] [place] [phone] Acute blood loss anemia (Primary Dx); Acute on chronic anemia; Iron deficiency anemia due to chronic blood loss Discharge Disposition: Home or Self Care 07/08/2024 Plan of Care Documentation [facility] [place] [address] [place] [address] 07/07/2024 12:40 PM EDT - 07/07/2024 11:59 PM EDT Hospital En[facility] [address] [place] [phone] Iron deficiency anemia due to chronic blood loss Discharge Disposition: Home or Self Care 07/01/2024 1:00 PM EDT Office Visit [facility] [address] [place] [address] Vanesa Mireles NP Iron deficiency anemia due to chronic blood loss; MGUS (monoclonal gammopathy of unknown significance) 07/01/2024 12:30 PM EDT Clinic Lab Collection [facility] [address] [place] [phone] Iron deficiency anemia due to chronic blood loss; MGUS (monoclonal gammopathy of unknown significance) 06/26/2024 12:33 PM EST - 06/29/2024 2:13 PM EDT Hospital Encounter [facility] On[facility] [address] [place] [address] Erik Rand MD Jain, MD Kvng Rodriguez Dennis P, MD Kapoor, MD Rosa Symptomatic anemia (Primary Dx); Transient hypotension; Hypomagnesemia; Stage 3b chronic kidney disease (CMS/HCC V24, CMS/HCC V28); Gastroesophageal reflux disease, unspecified whether esophagitis present; Chronic low back pain, unspecified back pain laterality, unspecified whether sciatica present Discharge Disposition: Home-Health Care [facility] 06/26/2024 11:00 AM EST Office Visit [facility] [address] [place] [phone] Roseline Nieto PA Iron deficiency anemia due to chronic blood loss 06/26/2024 10:30 AM EST Clinic Lab Collection [facility] [address] [place] [phone] Iron deficiency anemia due to chronic blood loss 06/22/2024 9:14 AM EST - 06/22/2024 11:59 PM EST [facility] [address] [place] [phone] Iron deficiency anemia due to chronic blood loss (Primary Dx) Discharge Disposition: Home or Self Care 06/19/2024 10:45 AM EST - 06/19/2024 11:59 PM EST Hospital Encounter [facility] [address] [place] [address] Closed fracture of right ankle with routine healing, subsequent encounter Discharge Disposition: Home or Self Care 06/19/2024 10:45 AM EST Office Visit Orthopedic Surgery [facility] [address] [place] [address] Galdino Pham PA Closed fracture of right ankle with routine healing, subsequent encounter (Primary Dx) 06/17/2024 10:51 AM EST - 06/17/2024 11:59 PM EST Hospital En[facility] [address] [place] [phone] Iron deficiency anemia due to chronic blood loss (Primary Dx) Discharge Disposition: Home or Self Care 06/16/2024 Telephone Orthopedic Surgery [facility] [address] [place] [address] Alix Sanabria MA 06/09/2024 12:04 PM EST - 06/09/2024 11:59 PM EST Hospital [facility] [address] [place] [phone] Iron deficiency anemia due to chronic blood loss (Primary Dx) Discharge Disposition: Home or Self Care 06/05/2024 1:00 PM EST Office Visit Family Medicine [address] [place] [address] Eileen Robin, JANNETH Follow-up exam (Primary Dx) from Last 3 Months Immunizations Name Administration Dates Next Due Influenza Quadravalent, MDCK , 0.5ml, preservative free (Flucelvax) 6mo and older 02/13/2018 Influenza Quadrivalent, 0.5m l, preservative free (Fluarix; FluLaval; Fluzone) ages 6mo and older (Afluria) 3yo and older 02/12/2023,01/13/2021,01/25/2020,2018 Influenza Quadrivalent, with preservative (Fluzone; Afluria) 6mo and older 01/17/2017 Pfizer (ages 12 & older) Biv alent, COVID-19 12/21/2022 Pfizer SARS-CoV-2 COVID-19, mRNA, LNP-S, preservative free 10/24/2021 Pneumococcal conjugate 13 va lent (Prevnar 13, PCV13) 2mo and older 02/25/2019 Pneumococcal conjugate 20 va lent (Prevnar 20, PCV 20) 2mo and older 10/21/2023 Tdap Tetanus diptheria acell ular pertussis (Boostrix; Adacel) 7yo and older 10/21/2023 Zoster recombinant (Shingrix ) 19yo and older 03/02/2020,12/22/2019 Surgical History Surgery Date Site/Laterality Comments ULNAR NERVE TRANSPOSITION Left PROCEDURE:ULNAR NERVE TRANSPOSITION BOTULINUM TOXIN INJECTION TO EXTRAOCULAR MUSCLE PROCEDURE:HYBRID IVC FILTER INSERTION BACK SURGERY PROCEDURE:BACK SURGERY;COMMENT:MULTIPLE OTHER SURGICAL HISTORY 06/20/2018 Left PROCEDURE:REPAIR EXTENSOR TENDON HAND;COMMENT:Procedure: LEFT SMALL FINGER EXTENSOR TENDON RECONSTRUCTION AND PINNING; Surgeon: Woo Morales MD; Location: [facility]; Service: CSMI; Laterality: Left; LUMBAR FUSION 07/01/2017 Posterior PROCEDURE:LUMBAR FUSION;COMMENT:Procedure: EXTENSION OF FUSION L4 - S1; Surgeon: Panchito Pulido MD; Location: [facility]; Service: Spine; Laterality: Posterior; LUMBAR LAMINECTOMY 07/01/2017 Posterior PROCEDURE:LUMBAR LAMINECTOMY;COMMENT:Procedure : L4, L5 LAMINECTOMY POSTERIOR LUMBAR ; Surgeon: Panchito Pulido MD; Location: [facility]; Service: Spine; Laterality: Posterior; OTHER SURGICAL HISTORY 07/01/2017 N/A PROCEDURE:EXPLORATION OF SPINAL FUSION;COMMENT:Procedure: L4-S1 EXPLORATION OF SPINAL FUSION; Surgeon: Panchiot Pulido MD; Location: [facility]; Service: Spine; Laterality: N/A; HARDWARE REMOVAL 07/01/2017 Posterior PROCEDURE:HARDWARE REMOVAL;COMMENT:Procedure: REMOVE HARDWARE SPINE L5 - S1; Surgeon: Panchito Pulido MD; Location: [facility]; Service: Spine; Laterality: Posterior; LUMBAR EPIDURAL INJECTION 08/13/2016 Bilateral PROCEDURE:LUMBAR EPIDURAL INJECTION;COMMENT:Procedure: INJECTION ANESTHETIC AGENT LUMBAR; Surgeon: Thania Leo MD; Location: [facility]; Service: Rehab Medicine; Laterality: Bilateral; OTHER SURGICAL HISTORY 05/10/2016 N/A PROCEDURE:ENDOSCOPY; CAPSULE RETURN;COMMENT:Procedure: ENDOSCOPY CAPSULE RETURN; Surgeon: Jose D Hayes MD; Location: [facility]; Service: Gastroenterology; Laterality: N/A; OTHER SURGICAL HISTORY 05/10/2016 N/A PROCEDURE:ENDOSCOPY; CAPSULE PLACEMENT;COMMENT:Procedure: ENDOSCOPY CAPSULE PLACEMENT; Surgeon: Jose D Hayes MD; Location: [facility]; Service: Gastroenterology; Laterality: N/A; COLONOSCOPY 05/09/2016 N/A PROCEDURE:COLONOSCOPY;COMMENT :Procedure: colonoscopy; Surgeon: Jose D Hayes MD; Location: [facility]; Service: Gastroenterology; Laterality: N/A; UPPER GASTROINTESTINAL ENDOSCOPY 05/09/2016 N/A PROCEDURE:UPPER GASTROINTESTINAL ENDOSCOPY;COMMENT:Procedure: UPPER ENDOSCOPY-EGD; Surgeon: Jose D Hayes MD; Location: [facility]; Service: Gastroenterology; Laterality: N/A; LUMBAR EPIDURAL INJECTION 09/12/2015 N/A PROCEDURE:LUMBAR EPIDURAL INJECTION;COMMENT:Procedure: caudal epidural steroid injection ; Surgeon: Thania Leo MD; Location: [facility]; Service: Rehab Medicine; Laterality: N/A; LUMBAR EPIDURAL INJECTION 03/03/2015 N/A PROCEDURE:LUMBAR EPIDURAL INJECTION;COMMENT:Procedure: INJECTION STEROID LUMBAR EPIDURAL; Surgeon: Thania Leo MD; Location: [facility]; Service: Rehab Medicine; Laterality: N/A; LUMBAR FUSION 01/07/2020 Posterior PROCEDURE:LUMBAR FUSION;COMMENT:Procedure: L4-5 FUSION SPINE LUMBAR - TLIF 1 LEVEL; Surgeon: Panchito Pulido MD; Location: [facility]; Service: Spine; Laterality: Posterior; LUMBAR FUSION 01/07/2020 Posterior PROCEDURE:LUMBAR FUSION;COMMENT:Procedure: L4-5 FUSION SPINE LUMBAR POSTERIOR 2 LEVELS; Surgeon: Panchito Pulido MD; Location: [facility]; Service: Spine; Laterality: Posterior; OTHER SURGICAL HISTORY 01/07/2020 Posterior PROCEDURE:EXPLORATION OF SPINAL FUSION;COMMENT:Procedure: EXPLORATION OF SPINAL FUSION; Surgeon: Panchito Pulido MD; Location: [facility]; Service: Spine; Laterality: Posterior; LAMINECTOMY 09/26/2020 Posterior PROCEDURE:LAMINECTOMY;COMMENT :Procedure: RIGHT L3-4 MIS LAMINECTOMY FOR EXCISION OF LESION; Surgeon: Panchito Pulido MD; Location: [facility]; Service: Spine; Laterality: Posterior; HAND SURGERY Left PROCEDURE:HAND SURGERY;COMMENT:x3 MASS EXCISION 08/28/2021 Right PROCEDURE:MASS EXCISION;COMMENT:Procedure: EXCISION OF RIGHT AXILLARY LIPOMA; Surgeon: Bib Hall MD; Location: [facility]; Service: General; Laterality: Right; UPPER GASTROINTESTINAL ENDOSCOPY 11/22/2022 N/A PROCEDURE:UPPER GASTROINTESTINAL ENDOSCOPY;COMMENT:Procedure: UPPER ENDOSCOPY-EGD; Surgeon: Giselle Hicks MD; Location: [facility]; Service: Gastroenterology; Laterality: N/A; COLONOSCOPY 11/22/2022 N/A PROCEDURE:COLONOSCOPY;COMMENT :Procedure: COLONOSCOPY; Surgeon: Giselle Hicks MD; Location: [facility]; Service: Gastroenterology; Laterality: N/A; UPPER GASTROINTESTINAL ENDOSCOPY 08/26/2023 N/A PROCEDURE:UPPER GASTROINTESTINAL ENDOSCOPY;COMMENT:Procedure: UPPER ENDOSCOPY-EGD; Surgeon: Giselle Hicks MD; Location: [facility]; Service: Gastroenterology; Laterality: N/A; Medical History Medical History Date Comments HTN (hypertension) DX:HTN (hyper tension) Fracture of rib of right side DX :Fracture of rib of right side;COMMENT:2 ribs Gout DX:Gout Alcoholism ([facility] V24, [facility] V28) DX:Alcoholism ([facility]) Chicken pox DX:Chicken pox Rheumatic fever DX:Rheumatic fev er Hospital acquired MRSA infection 2000 DX:Hospital acquired MRSA infection;COMMENT:MRSA of Spine Staph infection 2006 DX:Staph infecti on;COMMENT:Left arm Iron deficiency anemia DX:Iron d eficiency anemia Acid reflux DX:Acid reflux History of transfusion DX:Histor y of transfusion Kidney stone DX:Kidney stone HL (hearing loss) DX:HL (hearing loss);COMMENT:Hearing aids young Rosacea DX:Rosacea Bleeding disorder ([facility] V24) DX:Bleeding disorder ([facility]) GI bleed 2017 DX:GI bleed Numbness and tingling of both feet DX:Numbness and tingling of both feet GERD (gastroesophageal reflu x disease) DX:GERD (gastroesophageal re flux disease) Anemia DX:Anemia DVT (deep venous thrombosis) ([facility] V24, [facility] V28) 03/2016 DX:DVT (deep venous thrombos is) ([facility]);COMMENT:left LE, patient states chronic clot Leg swelling DX:Leg swelling Bruises easily DX:Bruises easil y Sleep apnea, obstructive DX:Slee p apnea, obstructive;COMMENT:CPAP recommended, pt unable to tolerate Depression DX:Depression;CO MMENT:Remote hx Visual impairment DX:Visual impa irment;COMMENT:Wears glasses Diabetes mellitus, type II ( [facility] V24, [facility] V28) DX:Diabetes mellitus, type I I (HCC) DM (diabetes mellitus) ([facility] V24, [facility] V28) DX:DM (diabetes mellitus) (H CC) Pulmonary embolus ([facility] V 24, [facility] V28) 02/27/2016 DX:Pulmonary embolus (HCC) Family History Medical History Relation Name Comments No Known Problems Brother Scott Clotting disorder Cousin No Known Problems Daughter Aubrie No Known Problems Father Clotting disorder Maternal Grandmother 98 Diabetes Maternal Grandmother 98 Cancer Mother 84 Lymphoma Mother 84 No Known Problems Sister Nessa Crohn's disease Son Jagdish Man Relation Name Status Comments Brother Scott Alive Cousin Alive Daughter Aubrie Alive Father Alive Maternal Grandmother 98 Mother 84 LYMPHOMA Sister Nessa Alive Son Jagdish Man Alive Social History Tobacco Use Types Packs/Day [...] your loved ones. 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 [...] Orientation Straight 06/03/2024 2: 26 PM EST Obstetrics History Last Filed Vital Signs Vital Sign Reading Time Taken Comments Blood Pressure 123/74 09/01/2024 9:13 AM EDT Pulse 87 09/01/2024 9:13 AM EDT Temperature 36.7 ??C (98 ??F) 09/01/2024 9:13 AM EDT Respiratory Rate 18 09/01/2024 9:13 AM EDT Oxygen Saturation 100% 09/01/2024 9:13 AM EDT Inhaled Oxygen Concentration - - Weight 104 kg (228 lb 3.2 oz) 08/28/2024 8:49 AM EDT Height 182.9 cm (6') 08/25/2024 2:07 PM EDT Body Mass Index 30.95 08/25/2024 2:07 PM EDT Plan of Treatment Upcoming Encounters Date Type Department Care Team (Late st Contact Info) Description 09/07/2024 9:00 AM EDT [place] [facility] [address] [place] [phone] 09/08/2024 12:30 PM EDT [facility] [facility] [address] [place] [phone] 09/10/2024 11:00 AM EDT Office Visit Hematology and Oncology - [address] [phone] Dhaval Bradley MD [address] [place] [phone] 09/21/2024 11:00 AM EDT [place]ment [facility] [address] [place] [phone] 09/22/2024 11:45 AM EDT Office Visit Family Medicine [place] [address] [facility] [address] [place] [phone] Kiya Crespo PA [address] [facility] [address] [facility] [place] [address] 09/22/2024 12:30 PM EDT Appointment [facility] [address] [place] [phone] 10/05/2024 11:00 AM EDT Appointment [facility] [address] [place] [phone] 10/06/2024 11:00 AM EDT App[facility]ment [facility] [address] [place] [phone] 10/19/2024 11:00 AM EDT [facility]ment [facility] [address] [place] [phone] 10/20/2024 11:00 AM EDT [facility]ment [facility] [address] [place] [phone] 10/26/2024 1:15 PM EDT [facility] [place] [address] [place] [phone] Joann Strauss PA [address] [place], [place] [phone] 02/11/2025 11:20 AM EDT [facility] [address] [place] [phone] Leonid Watson DO [address] [place], [place] [phone] Health Maintenance Due Date Last Done Comments Diabetes: Annual Foot Exam 1978 Hepatitis A Vaccines (1 of 2 - Risk 2-dose series) 1987 COVID-19 Vaccine ( season) 2023 12/21/2022, 03/03/2022, 10/24/2021, Additional history exists Diabetes: Annual Retina Eye Exam 02/21/2024 02/20/2023 Diabetes: Annual Urine Albumin-Creatinine Ratio (uACR) 10/07/2024 10/08/2023, 05/28/2023, 02/21/2022, Additional history exists Medicare Annual Wellness Visit 10/20/2024 10/21/2023 Influenza Vaccine (Season Ended) 2024 02/12/2023, 01/13/2021, 01/25/2020, Additional history exists Diabetes: Blood Sugar Control Test (HGBA1C) 01/22/2025 07/23/2024, 06/28/2024, 12/04/2023, Additional history exists Social Influencers of Health Screening 07/22/2025 07/22/2024 Depression Screening 08/13/2025 08/13/2024, 10/21/19 Diabetes: Annual GFR (Glomerular Filtration Rate) 08/27/2025 08/27/2024, 08/09/2024, 08/05/2024, Additional history exists Hypertension/CHF/CAD Annual BMP Blood Test 08/27/2025 08/27/2024, 08/09/2024, 08/05/2024, Additional history exists Cholesterol Screening (Lipid Panel) 05/28/2028 05/28/2023, 05/28/2023, 12/19/2021, Additional history exists Colorectal Cancer Screening: Colonoscopy 11/22/2032 11/22/2022 DTaP,Tdap,and Td Vaccines (2 - Td or Tdap) 10/20/2033 10/21/2023 Zoster Vaccines Completed 03/02/2020, 12/22/2019 Pneumococcal Vaccine: 50+ Years Completed 10/21/2023, 02/25/2019 Pneumococcal Vaccine: Pediatrics (0 to 5 Years) and At-Risk Patients (6 to 64 Years) Completed 10/21/2023, 02/25/2019 Hepatitis C Screening Completed 08/27/2024, 024 HIB Vaccines Aged Out No longer eligi ble based on patient's age to complete this topic HIV Screening Discontinued HPV Vaccines Aged Out No longer eligi ble based on patient's age to complete this topic Hepatitis B Vaccines Discontinued IPV Vaccines Aged Out No longer eligi ble based on patient's age to complete this topic MMR Vaccines Aged Out No longer eligi ble based on patient's age to complete this topic Meningococcal ACWY Vaccine Aged Out N o longer eligible based on patient's age to complete this topic Meningococcal B Vaccine Aged Out No l onger eligible based on patient's age to complete this topic RSV Immunization Patients Under 20 months Aged Out No longer eligible based on patient's age to complete this topic Varicella Vaccines Aged Out No longer eligible based on patient's age to complete this topic Medical Devices Implanted Type Area Land Degradation Analyst Device Identifier Shelf Expiration Date Model / Serial / Lot Surgiflo Hemostatic Matrix [facility] [id number] Implanted:Qty: 1 on 03/26/2022 by Panchito Pulido, DO Implants Left: Spine Lumbar [facility] [employer] 11/20/2023 [id number] / / [id number] Plate 1/3 Tubular 5h 59mm - Sn/A - [id number] Implanted:Qty: 1 on 05/18/2024 by Pawel Harden MD at [facility] Internal and External Fixation Right: Ankle [employer] [id number] / N/A / N/A Screw Bone T10 F-Thread L65mm - Sn/A - [id number] Implanted:Qty: 1 on 05/18/2024 by Pawel Harden MD at [facility] Internal and External Fixation Right: Ankle [employer] [id number] / N/A / N/A Screw Bone 3.5x60mm Full Thrd T10 - Sn/A - [id number] Implanted:Qty: 2 on 05/18/2024 by Pawel Harden MD at [facility] Internal and External Fixation Right: Ankle [employer] [id number] / N/A / N/A Screw Bone 3.5x70mm Thrd T18 Full Thread - Sn/A - [id number] Implanted:Qty: 1 on 05/18/2024 by Pawel Harden MD at [facility] Internal and External Fixation Right: Ankle [employer]ISE [employer] [id number] / N/A / N/A Kit Infuse Medium 2x1in 20ga 5.6ml Vial Absorbable Collagen - [id number] Implanted:Qty: 1 on 01/07/2020 by Panchito Pulido DO Spine Lumbar [employer]ANE[employer] 12/20/2021 [id number] / / [id number] Screw Matrix 50mm 8mm Thread Titanium Bone Spine - [id number] Implanted:Qty: 1 on 01/07/2020 by Panchito Pulido DO N/A: Spine Lumbar [employer] 04.639.850 / / Michael 45mm 5.5mm Curved Titanium Exfix Nonsterile - [id number] Implanted:Qty: 1 on 01/07/2020 by Panchito Pulido DO Spine Lumbar [employer] 04.636.045 / / Michael Matrix 50mm 5.5mm Curved Titanium Exfix Pedcl Posterior - [id number] Implanted:Qty: 1 on 01/07/2020 by Panchito Pulido DO Spine Lumbar [employer] 04.636.050 / / Graft Bone Readigraft Preservon Cancellous 1-[address] [facility] - [id number] - [id number] Implanted:Qty: 1 on 01/07/2020 by Panchito Pulido DO Spine Lumbar [employer] 04/03/2024 [id number] / [id number] / Graft Pliafx 10cc Freeze Dry Bone Fibers Bone - [id number] - [id number] Implanted:Qty: 1 on 01/07/2020 by Panchito Pulido DO Spine Lumbar [employer] 08/17/2023 [id number] / [id number] / Shell Flarehawk 9 Short 25mm - [id number] Implanted:Qty: 1 on 01/07/2020 by Panchito Pulido DO Spine Lumbar [employer] [id number] / / Baljit 13mm Or 98cdx24 Mm 6 Degree Version C - [id number] Implanted:Qty: 1 on 01/07/2020 by Panchito Pulido DO Spine Lumbar [employer] [id number] / / Cap Matrix Flat 5.5mm Step Square Thread Stardrive Cocr - [id number] Implanted:Qty: 4 on 01/07/2020 by Panchito Pulido DO N/A: Spine Lumbar [employer] 09.632.099 / / Head Matrix Polyaxial Top Loading Titanium Screw Spine - [id number] Implanted:Qty: 4 on 01/07/2020 by Panchito Pulido DO N/A: Spine Lumbar [employer] 04.632.001 / / Screw Matrix T25 Low Profile 45mm 6mm 2 Core 2 Lead - [id number] Implanted:Qty: 2 on 01/07/2020 by Panchito Pulido DO N/A: Spine Lumbar [employer] 04.639.645 / / Screw Matrix T25 Low Profile 50mm 7mm 2 Core 2 Lead - [id number] Implanted:Qty: 1 on 01/07/2020 by Panchito Pulido DO N/A: Spine Lumbar [employer] 04.639.750 / / Port Pwr Mri Isp 8f Micintrdcr Crba-Sissy [id number] Implanted:Qty: 1 on 11/15/[address] PA [facility]HER[facility] 05/22/2025 [id number] / / [id number] Procedures Procedure Name Priority Date/Time Associated Diagnosis Comments CBC WITH AUTO DIFFERENTIAL Routine 09/01/2024 8:51 AM EDT Iron deficiency anemia due to chronic blood loss TYPE AND SCREEN Routine 09/01/2024 8:51 AM EDT Iron deficiency anemia due to chronic blood loss CBC AND DIFFERENTIAL Routine 09/01/2024 8:51 AM EDT Iron deficiency anemia due to chronic blood loss US ABDOMEN LIMITED Routine 08/31/2024 8: 02 AM EDT Alcoholic cirrhosis of liver with ascites (CMS/HCC V24, CMS/HCC V28) BONE MARROW EXAM Routine 08/28/2024 9:48 AM EDT MGUS (monoclonal gammopathy of unknown significance) Iron deficiency anemia due to chronic blood loss Acute on chronic anemia FLOW CYTOMETRY Routine 08/28/2024 9:48 AM EDT MGUS (monoclonal gammopathy of unknown significance) Iron deficiency anemia due to chronic blood loss Acute on chronic anemia CBC WITH AUTO DIFFERENTIAL Routine 08/27/2024 12:32 PM EDT Alcoholic cirrhosis of liver with ascites (CMS/HCC V24, CMS/HCC V28) HEPATITIS A ANTIBODY TOTAL WITH REFLEX IGM Routine 08/27/2024 12:32 PM EDT Alcoholic cirrhosis of liver with ascites (CMS/HCC V24, CMS/HCC V28) HEPATITIS B SURFACE ANTIGEN Routine 08/27/2024 12:32 PM EDT Alcoholic cirrhosis of liver with ascites (CMS/HCC V24, CMS/HCC V28) HEPATITIS B CORE ANTIBODY, TOTAL Routine 08/27/2024 12:32 PM EDT Alcoholic cirrhosis of liver with ascites (CMS/HCC V24, CMS/HCC V28) HEPATITIS B SURFACE ANTIBODY QUANTITATIVE Routine 08/27/2024 12:32 PM EDT Alcoholic cirrhosis of liver with ascites (CMS/HCC V24, CMS/HCC V28) HEPATITIS C ANTIBODY Routine 08/27/2024 12:32 PM EDT Alcoholic cirrhosis of liver with ascites (CMS/HCC V24, CMS/HCC V28) PHOSPHATIDYLETHANOL Routine 08/27/2024 12:32 PM EDT Alcoholic cirrhosis of liver with ascites (CMS/HCC V24, CMS/HCC V28) Alcohol abuse with physiological dependence (CMS/HCC V24, CMS/HCC V28) ALPHA FETOPROTEIN TUMOR MARKER Routine 08/27/2024 12:32 PM EDT Alcoholic cirrhosis of liver with ascites (CMS/HCC V24, CMS/HCC V28) CBC AND DIFFERENTIAL Routine 08/27/2024 12:32 PM EDT Alcoholic cirrhosis of liver with ascites (CMS/HCC V24, CMS/HCC V28) PROTHROMBIN TIME WITH INR Routine 2024 12:32 PM EDT Alcoholic cirrhosis of liver with ascites (CMS/HCC V24, CMS/HCC V28) COMPREHENSIVE METABOLIC PANEL Routine 08/27/2024 12:32 PM EDT Alcoholic cirrhosis of liver with ascites (CMS/HCC V24, CMS/HCC V28) TRANSFUSE RED BLOOD CELLS Routine 2024 10:58 AM EDT Acute blood loss anemia Acute on chronic anemia PREPARE RBC Routine 08/26/2024 6:44 AM EDT Acute blood loss anemia Acute on chronic anemia CBC WITH AUTO DIFFERENTIAL Routine 08/24/2024 8:55 AM EDT Iron deficiency anemia due to chronic blood loss TYPE AND SCREEN Routine 08/24/2024 8:55 AM EDT Iron deficiency anemia due to chronic blood loss CBC AND DIFFERENTIAL Routine 08/24/2024 8:55 AM EDT Iron deficiency anemia due to chronic blood loss TRANSFUSE RED BLOOD CELLS Routine 2024 10:50 AM EDT Acute blood loss anemia Acute on chronic anemia PREPARE RBC Routine 08/18/2024 8:06 AM EDT Acute blood loss anemia Acute on chronic anemia CBC WITH AUTO DIFFERENTIAL Routine 08/17/2024 12:37 PM EDT Iron deficiency anemia due to chronic blood loss Acute blood loss anemia MGUS (monoclonal gammopathy of unknown significance) CBC AND DIFFERENTIAL Routine 08/17/2024 12:37 PM EDT Iron deficiency anemia due to chronic blood loss Acute blood loss anemia MGUS (monoclonal gammopathy of unknown significance) FERRITIN Routine 08/17/2024 12:37 PM EDT Iron deficiency anemia due to chronic blood loss MGUS (monoclonal gammopathy of unknown significance) IRON AND TIBC Routine 08/17/2024 12:37 PM EDT Iron deficiency anemia due to chronic blood loss MGUS (monoclonal gammopathy of unknown significance) TYPE AND SCREEN Routine 08/17/2024 12:37 PM EDT Iron deficiency anemia due to chronic blood loss CBC WITH AUTO DIFFERENTIAL Routine 08/13/2024 3:21 PM EDT Iron deficiency anemia due to chronic blood loss MGUS (monoclonal gammopathy of unknown significance) TYPE AND SCREEN Routine 08/13/2024 3:21 PM EDT Iron deficiency anemia due to chronic blood loss MGUS (monoclonal gammopathy of unknown significance) CBC AND DIFFERENTIAL Routine 08/13/2024 3:21 PM EDT Iron deficiency anemia due to chronic blood loss MGUS (monoclonal gammopathy of unknown significance) POCT GLUCOSE BLOOD Routine 08/09/2024 12:05 PM EDT POCT GLUCOSE BLOOD Routine 08/09/2024 9: 22 AM EDT POCT GLUCOSE BLOOD Routine 08/09/2024 8: 24 AM EDT SODIUM STAT 08/09/2024 8:13 AM EDT COMPLETE BLOOD COUNT Routine 08/09/2024 5:46 AM EDT BASIC METABOLIC PANEL Routine 08/09/2024 5:46 AM EDT POCT GLUCOSE BLOOD Routine 08/08/2024 10:39 PM EDT POCT GLUCOSE BLOOD Routine 08/08/2024 9: 26 PM EDT POCT GLUCOSE BLOOD Routine 08/08/2024 4: 50 PM EDT POCT GLUCOSE BLOOD Routine 08/08/2024 11:57 AM EDT POCT GLUCOSE BLOOD Routine 08/08/2024 9: 38 AM EDT POCT GLUCOSE BLOOD Routine 08/08/2024 8: 55 AM EDT COMPLETE BLOOD COUNT Routine 08/08/2024 5:39 AM EDT POCT GLUCOSE BLOOD Routine 08/07/2024 9: 46 PM EDT POCT GLUCOSE BLOOD Routine 08/07/2024 5: 41 PM EDT POCT GLUCOSE BLOOD Routine 08/07/2024 4: 44 PM EDT HEMOGLOBIN AND HEMATOCRIT Routine 2024 2:57 PM EDT POCT GLUCOSE BLOOD Routine 08/07/2024 12:04 PM EDT POCT GLUCOSE BLOOD Routine 08/07/2024 8: 37 AM EDT COMPLETE BLOOD COUNT Routine 08/07/2024 1:10 AM EDT POCT GLUCOSE BLOOD Routine 08/06/2024 8: 24 PM EDT COMPLETE BLOOD COUNT Routine 08/06/2024 5:32 PM EDT POCT GLUCOSE BLOOD Routine 08/06/2024 5: 12 PM EDT POCT GLUCOSE BLOOD Routine 08/06/2024 12:31 PM EDT TRANSFUSE RED BLOOD CELLS Routine 2024 11:17 AM EDT POCT GLUCOSE BLOOD Routine 08/06/2024 8: 29 AM EDT PREPARE RBC Routine 08/06/2024 7:47 AM EDT COMPLETE BLOOD COUNT Routine 08/06/2024 6:33 AM EDT POCT GLUCOSE BLOOD Routine 08/05/2024 4: 51 PM EDT POCT GLUCOSE BLOOD Routine 08/05/2024 12:27 PM EDT COMPLETE BLOOD COUNT Routine 08/05/2024 11:15 AM EDT POCT GLUCOSE BLOOD Routine 08/05/2024 8: 55 AM EDT BASIC METABOLIC PANEL Routine 08/05/2024 7:42 AM EDT POCT GLUCOSE BLOOD Routine 08/05/2024 2: 47 AM EDT CBC WITH AUTO DIFFERENTIAL Routine 08/05/2024 2:33 AM EDT CBC AND DIFFERENTIAL Routine 08/05/2024 2:33 AM EDT RETICULOCYTE COUNT STAT 08/05/2024 2: 33 AM EDT TRANSFUSE RED BLOOD CELLS STAT 2024 8:50 PM EDT VITAMIN B12 AND FOLATE STAT Add-on 7:16 PM EDT IRON AND TIBC STAT Add-on 08/04/2024 7:16 PM EDT ACTIVATED PARTIAL THROMBOPLASTIN TIME STAT 08/04/2024 7:16 PM EDT PROTHROMBIN TIME WITH INR STAT 2024 7:16 PM EDT BASIC METABOLIC PANEL STAT 08/04/2024 7:16 PM EDT TYPE AND SCREEN STAT 08/04/2024 5:35 PM EDT PREPARE RBC STAT 08/04/2024 5:03 PM EDT CBC WITH AUTO DIFFERENTIAL Routine 08/04/2024 1:12 PM EDT Iron deficiency anemia due to chronic blood loss TYPE AND SCREEN Routine 08/04/2024 1:12 PM EDT Iron deficiency anemia due to chronic blood loss CBC AND DIFFERENTIAL Routine 08/04/2024 1:12 PM EDT Iron deficiency anemia due to chronic blood loss POCT GLUCOSE BLOOD Routine 07/24/2024 11:41 AM EDT POCT GLUCOSE BLOOD Routine 07/24/2024 9: 06 AM EDT COMPLETE BLOOD COUNT Routine 07/24/2024 6:48 AM EDT MAGNESIUM Routine 07/24/2024 6:48 AM EDT BASIC METABOLIC PANEL Routine 07/24/2024 6:48 AM EDT ECG ANNOTATED 07/24/2024 TRANSFUSE RED BLOOD CELLS Routine 2024 10:08 PM EDT POCT GLUCOSE BLOOD Routine 07/23/2024 9: 00 PM EDT PREPARE RBC Routine 07/23/2024 5:59 PM EDT POCT GLUCOSE BLOOD Routine 07/23/2024 5: 34 PM EDT HEMOGLOBIN AND HEMATOCRIT Timed 2024 5:29 PM EDT POCT GLUCOSE BLOOD Routine 07/23/2024 4: 38 PM EDT POCT GLUCOSE BLOOD Routine 07/23/2024 12:52 PM EDT POCT GLUCOSE BLOOD Routine 07/23/2024 11:43 AM EDT TRANSFUSE RED BLOOD CELLS Routine 2024 10:48 AM EDT POCT GLUCOSE BLOOD Routine 07/23/2024 8: 37 AM EDT PREPARE RBC Routine 07/23/2024 8:14 AM EDT HEMOGLOBIN A1C Routine 07/23/2024 6:27 AM EDT COMPREHENSIVE METABOLIC PANEL Timed 07/23/2024 6:27 AM EDT MAGNESIUM Timed 07/23/2024 6:27 AM EDT COMPLETE BLOOD COUNT Timed 07/23/2024 6:27 AM EDT TRANSFUSE RED BLOOD CELLS STAT 2024 10:10 PM EDT POCT GLUCOSE BLOOD Routine 07/22/2024 8: 35 PM EDT TRANSFUSE RED BLOOD CELLS STAT 2024 5:31 PM EDT POCT GLUCOSE BLOOD Routine 07/22/2024 3: 56 PM EDT ECG 12-LEAD STAT 07/22/2024 2:31 PM EDT TYPE AND SCREEN STAT 07/22/2024 2:31 PM EDT ACTIVATED PARTIAL THROMBOPLASTIN TIME STAT 07/22/2024 2:31 PM EDT PROTHROMBIN TIME WITH INR STAT 2024 2:31 PM EDT PHOSPHORUS STAT 07/22/2024 2:31 PM EDT MAGNESIUM STAT 07/22/2024 2:31 PM EDT LIPASE STAT 07/22/2024 2:31 PM EDT COMPREHENSIVE METABOLIC PANEL STAT 07/22/2024 2:31 PM EDT LACTATE, WITH REFLEX STAT 07/22/2024 2:31 PM EDT PREPARE RBC STAT 07/22/2024 2:23 PM EDT SC CRITICAL CARE 30-74 MINUTES Routine 07/22/2024 1:32 PM EDT TYPE AND SCREEN Routine 07/22/2024 12:08 PM EDT Iron deficiency anemia due to chronic blood loss CBC WITH AUTO DIFFERENTIAL Routine 07/22/2024 12:08 PM EDT Iron deficiency anemia due to chronic blood loss IRON AND TIBC Routine 07/22/2024 12:08 PM EDT Iron deficiency anemia due to chronic blood loss FERRITIN Routine 07/22/2024 12:08 PM EDT Iron deficiency anemia due to chronic blood loss CBC AND DIFFERENTIAL Routine 07/22/2024 12:08 PM EDT Iron deficiency anemia due to chronic blood loss GLUCOSE MONITORING CONTINUOUS Routine 07/20/2024 11:59 AM EDT XR ANKLE 3+ VIEWS RIGHT Routine 07/11/19 25 11:06 AM EDT Closed fracture of right ankle with routine healing, subsequent encounter TRANSFUSE RED BLOOD CELLS Routine 2024 10:56 AM EDT Acute blood loss anemia Acute on chronic anemia PREPARE RBC Routine 07/08/2024 7:21 AM EDT Acute blood loss anemia Acute on chronic anemia CBC WITH AUTO DIFFERENTIAL Routine 07/07/2024 12:59 PM EDT Iron deficiency anemia due to chronic blood loss TYPE AND SCREEN Routine 07/07/2024 12:59 PM EDT Iron deficiency anemia due to chronic blood loss CBC AND DIFFERENTIAL Routine 07/07/2024 12:59 PM EDT Iron deficiency anemia due to chronic blood loss IMMUNOGLOBULINS IGG, IGA, IGM Routine 07/01/2024 12:38 PM EDT MGUS (monoclonal gammopathy of unknown significance) IMMUNOFIXATION ELECTROPHORESIS Routine 07/01/2024 12:38 PM EDT MGUS (monoclonal gammopathy of unknown significance) PROTEIN ELECTROPHORESIS, SERUM Routine 07/01/2024 12:38 PM EDT MGUS (monoclonal gammopathy of unknown significance) KAPPA-LAMBDA QUANTITATIVE FREE LIGHT CHAINS Routine 07/01/2024 12:38 PM EDT MGUS (monoclonal gammopathy of unknown significance) SST - GOLD Routine 07/01/2024 12:38 PM EDT Iron deficiency anemia due to chronic blood loss EXTRA TUBES Routine 07/01/2024 12:38 PM EDT Iron deficiency anemia due to chronic blood loss CBC WITH AUTO DIFFERENTIAL Routine 07/01/2024 12:38 PM EDT Iron deficiency anemia due to chronic blood loss TYPE AND SCREEN Routine 07/01/2024 12:38 PM EDT Iron deficiency anemia due to chronic blood loss CBC AND DIFFERENTIAL Routine 07/01/2024 12:38 PM EDT Iron deficiency anemia due to chronic blood loss POCT GLUCOSE BLOOD Routine 06/29/2024 9: 19 AM EDT CBC WITH AUTO DIFFERENTIAL Routine 06/29/2024 5:09 AM EDT CBC AND DIFFERENTIAL Routine 06/29/2024 5:09 AM EDT BASIC METABOLIC PANEL Routine 06/29/2024 5:09 AM EDT MAGNESIUM Routine 06/29/2024 5:09 AM EDT PHOSPHORUS Routine 06/29/2024 5:09 AM EDT HEMOGLOBIN AND HEMATOCRIT Timed 2024 9:51 PM EDT POCT GLUCOSE BLOOD Routine 06/28/2024 9: 33 PM EDT POCT GLUCOSE BLOOD Routine 06/28/2024 6: 01 PM EDT POCT GLUCOSE BLOOD Routine 06/28/2024 1: 17 PM EDT POCT GLUCOSE BLOOD Routine 06/28/2024 11:43 AM EDT POCT GLUCOSE BLOOD Routine 06/28/2024 9: 33 AM EDT HEMOGLOBIN A1C Routine 06/28/2024 5:45 AM EDT CBC WITH AUTO DIFFERENTIAL Routine 06/28/2024 5:45 AM EDT CBC AND DIFFERENTIAL Routine 06/28/2024 5:45 AM EDT BASIC METABOLIC PANEL Routine 06/28/2024 5:45 AM EDT MAGNESIUM Routine 06/28/2024 5:45 AM EDT PHOSPHORUS Routine 06/28/2024 5:45 AM EDT POCT GLUCOSE BLOOD Routine 06/27/2024 9: 29 PM EST POCT GLUCOSE BLOOD Routine 06/27/2024 6: 11 PM EST ACTIVATED PARTIAL THROMBOPLASTIN TIME STAT 06/27/2024 4:28 PM EST HEMOGLOBIN AND HEMATOCRIT Timed 2024 4:26 PM EST POCT GLUCOSE BLOOD Routine 06/27/2024 12:19 PM EST TRANSFUSE RED BLOOD CELLS Routine 2024 10:40 AM EST PREPARE RBC Routine 06/27/2024 9:07 AM EST POCT GLUCOSE BLOOD Routine 06/27/2024 8: 55 AM EST CBC WITH AUTO DIFFERENTIAL Routine 06/27/2024 6:38 AM EST PROTHROMBIN TIME WITH INR Routine 2024 6:38 AM EST CBC AND DIFFERENTIAL Routine 06/27/2024 6:38 AM EST BASIC METABOLIC PANEL Routine 06/27/2024 6:38 AM EST MAGNESIUM Routine 06/27/2024 6:38 AM EST PHOSPHORUS Routine 06/27/2024 6:38 AM EST POCT GLUCOSE BLOOD Routine 06/26/2024 10:30 PM EST HEMOGLOBIN AND HEMATOCRIT STAT 2024 9:25 PM EST XR CHEST 1 VIEW STAT 06/26/2024 2:31 PM EST ECG 12-LEAD STAT 06/26/2024 1:13 PM EST RHYTHM ECG, REPORT Routine 06/26/2024 1: 13 PM EST PREPARE RBC STAT 06/26/2024 1:11 PM EST PROTHROMBIN TIME WITH INR STAT 2024 12:45 PM EST MANUAL DIFFERENTIAL Routine 06/26/2024 12:39 PM EST VITAMIN B12 AND FOLATE STAT Add-on 12:39 PM EST COMPREHENSIVE METABOLIC PANEL STAT Add-on 06/26/2024 12:39 PM EST MAGNESIUM STAT Add-on 06/26/2024 12:39 PM EST CBC WITH AUTO DIFFERENTIAL STAT 06/26/2024 12:39 PM EST TYPE AND SCREEN STAT 06/26/2024 12:39 PM EST BASIC METABOLIC PANEL STAT 06/26/2024 12:39 PM EST CBC AND DIFFERENTIAL STAT 06/26/2024 12:39 PM EST SC CRITICAL CARE 30-74 MINUTES Routine 06/26/2024 12:29 PM EST CBC WITH AUTO DIFFERENTIAL Routine 06/26/2024 10:42 AM EST Iron deficiency anemia due to chronic blood loss TYPE AND SCREEN Routine 06/26/2024 10:42 AM EST Iron deficiency anemia due to chronic blood loss IRON AND TIBC Routine 06/26/2024 10:42 AM EST Iron deficiency anemia due to chronic blood loss FERRITIN Routine 06/26/2024 10:42 AM EST Iron deficiency anemia due to chronic blood loss CBC AND DIFFERENTIAL Routine 06/26/2024 10:42 AM EST Iron deficiency anemia due to chronic blood loss XR ANKLE 3+ VIEWS RIGHT Routine 06/19/19 25 11:09 AM EST Closed fracture of right ankle with routine healing, subsequent encounter IRON AND TIBC Routine 06/09/2024 12:30 PM EST Iron deficiency anemia due to chronic blood loss FERRITIN Routine 06/09/2024 12:30 PM EST Iron deficiency anemia due to chronic blood loss CBC WITH AUTO DIFFERENTIAL Routine 06/09/2024 12:30 PM EST Iron deficiency anemia due to chronic blood loss CBC AND DIFFERENTIAL Routine 06/09/2024 12:30 PM EST Iron deficiency anemia due to chronic blood loss TYPE AND SCREEN Routine 06/09/2024 12:30 PM EST Iron deficiency anemia due to chronic blood loss HM DEPRESSION SCREENING Routine 10/21/2023 HM URINE ALBUMIN CREATININE RATIO Routine 10/08/2023 LIPID PANEL Routine 05/28/2023 HM COLONOSCOPY Routine 11/22/2022 from Last 3 Months or Most Recently Relevant to Health Maintenance Results * (ABNORMAL) CBC auto differential (09/01/2024 8:51 AM EDT) Only the most recent of16 resultswithin the time period is included. WBC 3.0(L) 4.0 - 10.5 K/mcL LAB HEMETOLOGY METHOD 09/01/2024 9:32 AM EDT [facility] RBC 2.58(L) 4.70 - 6.00 M/mcL LAB HEMETOLOGY METHOD 09/01/2024 9:32 AM EDT [facility] Hemoglobin 7.5(L) 13.5 - 18.0 g/dL LAB HEMETOLOGY METHOD 09/01/2024 9:[facility] Hematocrit 25.2(L) 40.0 - 54.0 % LAB HEMETOLOGY METHOD 09/01/2024 9:32 [facility] MCV 97.7 78.0 - 100.0 FL LAB HEMETOLOGY METHOD 09/01/2024 9:32 [facility] MCH 29.1 25.0 - 33.0 pcg LAB HEMETOLOGY METHOD 09/01/2024 9:32 [facility] MCHC 29.8(L) 32.0 - 36.0 g/dL LAB HEMETOLOGY METHOD 09/01/2024 9:32 AM [facility] RDW 17.2 12.1 - 17.7 % LAB HEMETOLOGY METHOD 09/01/2024 9:32 AM [facility] Platelets 80(L) 150 - 450 K/mcL LAB HEMETOLOGY METHOD 09/01/2024 9:32 AM [facility] Comment:Verified via smear r eview MPV 10.9 7.4 - 11.4 FL LAB HEMETOLOGY METHOD 09/01/2024 9:32 AM [facility] Neutrophils Relative 65.5 44.0 - 74.0 % LAB HEMETOLOGY METHOD 09/01/2024 9:32 AM [facility] Lymphocytes Relative 19.1(L) 20.0 - 48.0 % LAB HEMETOLOGY METHOD 09/01/2024 9:32 AM [facility] Monocytes Relative 8.4 2.0 - 12.0 % LAB HEMETOLOGY METHOD 09/01/2024 9:32 AM [facility] Eosinophils Relative 6.0 0.0 - 6.0 % LAB HEMETOLOGY METHOD 09/01/2024 9:32 AM EDT [facility] Basophils Relative 0.7 0.0 - 2.0 % LAB HEMETOLOGY METHOD 09/01/2024 9:32 AM EDT [facility] Neutrophils Absolute 1.96 1.80 - 7.80 K/mcL LAB HEMETOLOGY METHOD 09/01/2024 9:32 AM EDT [facility] LAB Lymphocytes Absolute 0.57(L) 1.00 - 3.20 K/[facility] LAB HEMETOLOGY METHOD 09/01/2024 9:32 AM EDT [facility] Monocytes Absolute 0.25 0.00 - 0.80 K/[facility] LAB HEMETOLOGY METHOD 09/01/2024 9:32 AM EDT [facility] Eosinophils Absolute 0.18 0.00 - 0.50 K/mcL LAB HEMETOLOGY METHOD 09/01/2024 9:32 AM EDT [facility] Basophils Absolute <0.03 0.00 - 0.20 K/[facility] LAB HEMETOLOGY METHOD 09/01/2024 9:32 AM [facility] Blood Venous blood specimen / Unknown Venipuncture / Unknown 09/01/2024 8:51 AM EDT 09/01/2024 9:01 AM EDT us Roseline CHAMORRO LAB BLOOD ORDERABLES Final R esult [facility] [address] [place] [address], [place] * Type and screen (09/01/2024 8:51 AM EDT) Only the most recent of13 resultswithin the time period is included. ABO Group A 09/01/2024 3:54 PM EDT [facility] ([facility] Rh Type Positive 09/01/2024 3:54 PM EDT [facility] Antibody Screen Negative 09/01/2024 3:54 PM EDT [facility] Blood Venous blood specimen / Unknown Venipuncture / Unknown 09/01/2024 8:51 AM EDT 09/01/2024 9:01 AM EDT us Roseline CHAMORRO LAB BLOOD BANK TEST ORDERABL ES Final Result [facility] [address] [place] [address], [place] [phone] * US Abdomen Limited (08/31/2024 8:02 AM EDT) Anatomical Region Laterality Modality Body Ultrasound us Leonid Watson DO IMG US PROCEDURES Edited Res ult - Final * Flow cytometry (08/28/2024 9:48 AM EDT) Flow Cytometry Interpretation Flow cytometry: The overall [...] CD56, CD64, CD117, CD123, CD138, CD200, HLA-DR, Burnett, Lambda, TCR??. 08/28/2024 4:08 PM EDT [facility] Disclaimer This test was developed and [...] clinical laboratory testing. 08/28/2024 4:08 PM EDT [facility] Bone Marrow Specimen from bone marrow obtained by aspiration / Unknown Non-blood Collection / Unknown 08/28/2024 9:48 AM EDT 08/28/2024 11:46 AM EDT Seferino CHAMORRO LAB BLOOD ORDERABLES Fin al Result [facility] [address] [place] [address], * Bone marrow exam (08/28/2024 9:48 AM [...] with appropriate controls. 08/31/2024 2:57 PM EDT [facility] ([facility] Gross Description A. Bone Marrow Aspirate, [...] pieces. HP 08/28/24 08/31/2024 2:57 PM EDT [facility] Disclaimer The technical components of this [place] [address] CLIA # [id number] The interpretation of this case included the [...] Amendments of 1988. 08/31/2024 2:57 PM EDT [facility] Bone Marrow Bone marrow clot specimen [...] Seferino CHAMORRO LAB PATHOLOGY ORDERABLES Final Result [facility] [address] [place] [id number], * Hepatitis C antibody (08/27/2024 12:32 PM EDT) Hepatitis C Antibody Negative Negative LAB CHEMISTRY METHOD 08/27/2024 11:32 PM EDT [facility] Blood Venous blood specimen / Unknown Venipuncture / Unknown 08/27/2024 12:32 PM EDT 08/27/2024 12:35 PM EDT Leonid Watson DO LAB BLOOD ORDERABLES Final R esult Performing Organization Address City/[facility]/ZIP Co de Phone Number [facility] [address] [place] [address], [place] [phone] * Hepatitis A antibody total with reflex IgM (08/27/2024 12:32 PM EDT) Pathologist [facility] Hep A Total Ab Negative Negative LAB CHEMISTRY METHOD 08/27/2024 11:32 PM EDT [facility] Blood Venous blood specimen / Unknown Venipuncture / Unknown 08/27/2024 12:32 PM EDT 08/27/2024 12:35 PM EDT Leonid Watson LAB BLOOD ORDERABLES Final R esult Performing Organization Address City/[facility]/ZIP Co de Phone Number [facility] [address] [place] [address], [place] [phone] * Phosphatidylethanol (08/27/2024 12:32 PM EDT) [facility] PEth 16:0/18:1 (POPEth) 98 Cutoff: 10 ng/mL 09/02/2024 8:29 AM EDT [facility] Comment: Phosphatidylethanol (PEth) homologues result interpretation PEth 16:0/18:1 (POPEth) Less than 10 ng/mL: Not detected 10 - 19 ng/mL: Abstinence or light alcohol consumption (<2 drinks per day for several days a week) 20 - 200 ng/mL: Moderate alcohol consumption (up to 4 drinks per day for several days a week) Greater than 200 ng/mL: Heavy alcohol consumption or chronic alcohol use (at least 4 drinks per day several days a week) (Reference: Alicia Jensen and Michael Hough 2018 J. Forensic Sci) PEth 16:0/18:2 (PLPEth) 86 Cutoff: 10 ng/mL 09/02/2024 8:29 AM EDT [facility] Comment: PEth 16:0/18:2 (PLPEth) Reference ranges are not well established [facility] Interpretation Positive. 09/02 8:29 AM EDT IVETH EMMANUEL Comment: ADDITIONAL INFORMATION This report is intended for use in clinical monitoring and management of patients. ??It is not intended for use in employment-related testing. This test was developed and its performance characteristics determined by [facility] in a manner consistent with CLIA requirements. This test has not been cleared or approved by the U.S. Food and Drug Administration. Test Performed by: [facility] [address] [place] [address] Land Classifier: Rosemarie Gonzáles Ph.D.; CLIA# [id number] Blood Venous blood specimen / Unknown Venipuncture / Unknown 08/27/2024 12:32 PM EDT 08/27/2024 12:35 PM EDT Leonid Watson DO LAB BLOOD ORDERABLES Final R esult [facility] [address] [place] [address] * Alpha fetoprotein tumor marker (08/27/2024 12:32 PM EDT) [facility] AFP 3.2 <=9.0 ng/mL LAB CHEMISTRY METHOD 08/27/2024 7:51 PM EDT [facility] Blood Venous blood specimen / Unknown Venipuncture / Unknown 08/27/2024 12:32 PM EDT 08/27/2024 12:35 PM EDT us Leonid Watson LAB BLOOD ORDERABLES Final R esult [facility] [address] [place] [address], [place] [phone] * Hepatitis B surface antibody quantitative (08/27/2024 12:32 PM EDT) Hepatitis B Surface Ab Negative Negative LAB CHEMISTRY METHOD 08/27/2024 11:32 PM EDT [facility] Hepatitis B Surface Ab Quantitative 0.0 mIU/mL LAB CHEMISTRY METHOD 08/27/2024 11:32 PM EDT [facility] Blood Venous blood specimen / Unknown Venipuncture / Unknown 08/27/2024 12:32 PM EDT 08/27/2024 12:35 PM EDT us Leonid Watson DO LAB BLOOD ORDERABLES Final R esult [facility] [address] [place] [address], [place] [phone] * Hepatitis B core antibody, total (08/27/2024 12:32 PM EDT) Hep B Core Total Ab Negative Negative LAB CHEMISTRY METHOD 08/27/2024 11:32 PM EDT [facility] Blood Venous blood specimen / Unknown Venipuncture / Unknown 08/27/2024 12:32 PM EDT 08/27/2024 12:35 PM EDT us Leonid Watson DO LAB BLOOD ORDERABLES Final R esult [facility] [address] [place] [id number], [place] [phone] * Hepatitis B surface antigen (08/27/2024 12:32 PM EDT) Hepatitis B Surface Ag Negative Negative LAB CHEMISTRY METHOD 08/27/2024 11:32 PM EDT [facility] Blood Venous blood specimen / Unknown Venipuncture / Unknown 08/27/2024 12:32 PM EDT 08/27/2024 12:35 PM EDT us Leonid G Watson DO LAB BLOOD ORDERABLES Final R esult Performing Organization Address City/[facility]/ZIP Co de Phone Number [facility] [address] [place] [address], * (ABNORMAL) Prothrombin time with INR (08/27/2024 12:32 PM EDT) Only the most recent of5 resultswithin the time period is included. Protime 18.4(H) 10.5 - 13.3 sec LAB COAGULATION METHOD 08/27/2024 7:49 PM EDT [facility] INR 1.6(H) 0.8 - 1.1 LAB COAGULATION METHOD 08/27/2024 7:49 PM EDT [facility] Blood Venous blood specimen / Unknown Venipuncture / Unknown 08/27/2024 12:32 PM EDT 08/27/2024 12:35 PM EDT Narrative [facility] - 08/27/2024 7:49 PM EDT Std. Therapy ?2.0-3.0 INR High Dose Therapy 3.0-4.5 INR Ranges may vary depending on clinical indications and protocol. Leonid Watson DO LAB BLOOD ORDERABLES Final R esult Performing Organization Address City/[facility]/ZIP Co de Phone Number [facility] [address] [place] [address], * (ABNORMAL) Comprehensive metabolic panel (08/27/2024 12:32 PM EDT) Only the most recent of4 resultswithin the time period is included. Sodium 140 135 - 145 mmol/L LAB CHEMISTRY METHOD 08/27/2024 8:01 PM EDT [facility] Potassium 4.4 3.5 - 5.1 mmol/L LAB CHEMISTRY METHOD 08/27/2024 8:01 PM EDT [facility] Chloride 104 98 - 107 mmol/L LAB CHEMISTRY METHOD 08/27/2024 8:01 PM [facility] CO2 24 24 - 32 mmol/L LAB CHEMISTRY METHOD 08/27/2024 8:01 PM [facility] Anion Gap 12 5 - 14 LAB CHEMISTRY METHOD 08/27/2024 8:01 PM [facility] Glucose 164(H) 70 - 99 mg/dL LAB CHEMISTRY METHOD 08/27/2024 8:01 PM [facility] BUN 38(H) 9 - 20 mg/dL LAB CHEMISTRY METHOD 08/27/2024 8:01 PM [facility] Creatinine 1.70(H) 0.70 - 1.30 mg/dL LAB CHEMISTRY METHOD 08/27/2024 8:01 PM [facility] eGFR 47(L) >=60 mL/min/1. 73m2 LAB CHEMISTRY METHOD 08/27/2024 8:01 PM [facility] Comment:Calculation based on the Chronic Kidney Disease Epidemiology Collaboration (CKD-EPI) equation refit without adjustment for race. BUN/Creatinine Ratio 22.4(H) 12.0 - 20.0 LAB CHEMISTRY METHOD 08/27/2024 8:01 PM [facility] Calcium 8.9 8.4 - 10.2 mg/dL LAB CHEMISTRY METHOD 08/27/2024 8:01 PM [facility] AST (SGOT) 28 5 - 40 unit/L LAB CHEMISTRY METHOD 08/27/2024 8:01 PM [facility] ALT (SGPT) 20 7 - 52 unit/L LAB CHEMISTRY METHOD 08/27/2024 8:01 PM [facility] Alkaline Phosphatase 177(H) 34 - 104 unit/L LAB CHEMISTRY METHOD 08/27/2024 8:01 PM [facility] Total Protein 6.5 6.4 - 8.5 g/dL LAB CHEMISTRY METHOD 08/27/2024 8:01 PM [facility] Albumin 4.0 3.5 - 5.0 g/dL LAB CHEMISTRY METHOD 08/27/2024 8:01 PM EDT [facility] Total Bilirubin 1.4(H) 0.3 - 1.0 mg/dL LAB CHEMISTRY METHOD 08/27/2024 8:01 PM EDT [facility] Blood Venous blood specimen / Unknown Venipuncture / Unknown 08/27/2024 12:32 PM EDT 08/27/2024 12:35 PM EDT Leonid Watson DO LAB BLOOD ORDERABLES Final R esult [facility] [address] [place] [address], [place] [phone] * Transfuse RBC (08/26/2024 1:48 PM EDT) Only the most recent of11 resultswithin the time period is included. Vanesa Mireles NP BLOOD TRANSFUSION ORDERABLE S Final Result * Prepare RBC: 1 Units (08/26/2024 6:44 AM EDT) Only the most recent of10 resultswithin the time period is included. Product Code [id number] 09/01/2024 4:24 AM EDT [facility] Unit Number [id number] 09/02/19 4:24 AM EDT [facility] Crossmatch Compatible 08/26/2024 9:17 AM EDT [facility] Dispense Status Presumed Transfused 09/01/2024 4:24 AM EDT [facility] Unit ABO Rh APOS 09/01/2024 4:24 AM EDT [facility] Unit Expiration Date Time [id number] 09/01/2024 4:24 AM EDT [facility] Unit Blood Type 6200 09/01/2024 4:24 AM EDT [facility] Blood Venous blood specimen / Unknown 08/26/2024 6:44 AM EDT 08/24/2024 9:04 AM EDT Vanesa Mireles NP BLOOD BANK PRODUCT ORDERABL ES Final Result [facility] [address] [place] [address], [place] [phone] * (ABNORMAL) Iron and TIBC (08/17/2024 12:37 PM EDT) Only the most recent of5 resultswithin the time period is included. Iron 74 49 - 181 mcg/dL LAB CHEMISTRY METHOD 08/17/2024 4:31 PM EDT [facility] UIBC 346 155 - 355 mcg/dL LAB CHEMISTRY METHOD 08/17/2024 4:31 PM EDT [facility] TIBC 420 250 - 450 mcg/dL LAB CHEMISTRY METHOD 08/17/2024 4:31 PM EDT [facility] Iron Saturation 18(L) 20 - 45 % LAB CHEMISTRY METHOD 08/17/2024 4:31 PM EDT [facility] Blood Venous blood specimen / Unknown Venipuncture / Unknown 08/17/2024 12:37 PM EDT 08/17/2024 12:51 PM EDT Vanesa Mireles NP LAB BLOOD ORDERABLES Final Result [facility] [address] [place] [address], [place] [phone] * Ferritin (08/17/2024 12:37 PM EDT) Only the most recent of4 resultswithin the time period is included. Ferritin 52 20 - 250 ng/mL LAB CHEMISTRY METHOD 08/17/2024 4:44 PM EDT [facility] Blood Venous blood specimen / Unknown Venipuncture / Unknown 08/17/2024 12:37 PM EDT 08/17/2024 12:51 PM EDT Vanesa Mireles NP LAB BLOOD ORDERABLES Final Result Performing Organization Address City/[facility]/ZIP Co de Phone Number [facility] [address] [place] [address], * (ABNORMAL) POCT Glucose, blood (08/09/2024 12:05 PM EDT) Only the most recent of43 resultswithin the time period is included. Glucose POCT 280(H) 70 - 199 mg/dL 08/09/2024 12:06 PM EDT [facility] Comment: Fasting Reference Range: ? 70-99 mg/dL Non-Fasting Reference Range: 70-199 mg/dL Blood Capillary blood specimen / Unknown 08/09/2024 12:05 PM EDT 08/09/2024 12:07 PM EDT us Maggy Medrano MD LAB POINT OF CARE TEST DOCKED DEVICE UNSOLICITED RESULTS Final Result Performing Organization Address City/[facility]/ZIP Co de Phone Number [facility] [address] [place] [address], * (ABNORMAL) Sodium (08/09/2024 8:13 AM EDT) Sodium 133(L) 135 - 145 mmol/L LAB CHEMISTRY METHOD 08/09/2024 9:19 AM EDT [facility] Blood Venous blood specimen / Unknown Venipuncture / Unknown 08/09/2024 8:13 AM EDT 08/09/2024 8:45 AM EDT us Maggy Medrano MD LAB BLOOD ORDERABLES Final Result [facility] [address] [place] [address], * (ABNORMAL) Complete blood count (08/09/2024 5:46 AM EDT) Only the most recent of8 resultswithin the time period is included. WBC 3.3(L) 4.0 - 10.5 K/mcL LAB HEMETOLOGY METHOD 08/09/2024 6:11 AM EDT [facility] RBC 2.45(L) 4.70 - 6.00 M/mcL LAB HEMETOLOGY METHOD 08/09/2024 6:11 AM EDT [facility] Hemoglobin 7.4(L) 13.5 - 18.0 g/dL LAB HEMETOLOGY METHOD 08/09/2024 6:11 AM EDT [facility] Hematocrit 22.3(L) 40.0 - 54.0 % LAB HEMETOLOGY METHOD 08/09/2024 6:11 AM EDT [facility] MCV 90.8 78.0 - 100.0 FL LAB HEMETOLOGY METHOD 08/09/2024 6:11 AM EDT [facility] MCH 30.3 25.0 - 33.0 pcg LAB HEMETOLOGY METHOD 08/09/2024 6:11 AM EDT [facility] MCHC 33.3 32.0 - 36.0 g/dL LAB HEMETOLOGY METHOD 08/09/2024 6:11 AM EDT [facility] RDW 16.3 12.1 - 17.7 % LAB HEMETOLOGY METHOD 08/09/2024 6:11 AM EDT [facility] Platelets 94(L) 150 - 450 K/mcL LAB HEMETOLOGY METHOD 08/09/2024 6:11 AM EDT [facility] MPV 9.0 7.4 - 11.4 FL LAB HEMETOLOGY METHOD 08/09/2024 6:11 AM EDT [facility] Blood Blood sample taken from central line / Unknown Venipuncture / Unknown 08/09/2024 5:46 AM EDT 08/09/2024 5:55 AM EDT Maggy Medrano MD LAB BLOOD ORDERABLES Final Result [facility] [address] [place] [address], [place] [phone] * (ABNORMAL) Basic metabolic panel (08/09/2024 5:46 AM EDT) Only the most recent of8 resultswithin the time period is included. Sodium 132(L) 135 - 145 mmol/L LAB CHEMISTRY METHOD 08/09/2024 6:29 AM EDT [facility] Potassium 3.8 3.5 - 5.1 mmol/L LAB CHEMISTRY METHOD 08/09/2024 6:29 AM EDT [facility] Chloride 98 98 - 107 mmol/L LAB CHEMISTRY METHOD 08/09/2024 6:29 AM T [facility] CO2 23(L) 24 - 32 mmol/L LAB CHEMISTRY METHOD 08/09/2024 6:29 AM EDT [facility] Anion Gap 11 5 - 14 LAB CHEMISTRY METHOD 08/09/2024 6:29 AM EDT [facility] Glucose 299(H) 70 - 199 mg/dL LAB CHEMISTRY METHOD 08/09/2024 6:29 AM EDT [facility] BUN 57(H) 9 - 20 mg/dL LAB CHEMISTRY METHOD 08/09/2024 6:29 AM T [facility] Creatinine 1.80(H) 0.70 - 1.30 mg/dL LAB CHEMISTRY METHOD 08/09/2024 6:29 AM EDT [facility] eGFR 44(L) >=60 mL/min/1. 73m2 LAB CHEMISTRY METHOD 08/09/2024 6:29 AM EDT [facility] Comment:Calculation based on the??Chronic Kidney Disease Epidemiology Collaboration (CKD-EPI) equation refit??without adjustment for race. BUN/Creatinine Ratio 31.7(H) 12.0 - 20.0 LAB CHEMISTRY METHOD 08/09/2024 6:29 AM EDT [facility] Calcium 8.6 8.4 - 10.2 mg/dL LAB CHEMISTRY METHOD 08/09/2024 6:29 AM EDT [facility] Blood Blood sample taken from central line / Unknown Venipuncture / Unknown 08/09/2024 5:46 AM EDT 08/09/2024 5:55 AM EDT Maggy Medrano MD LAB BLOOD ORDERABLES Final Result Performing Organization Address City/[facility]/ZIP Co de Phone Number [facility] [address] [place] [address], [place] [phone] * (ABNORMAL) Hemoglobin and hematocrit (08/07/2024 2:57 PM EDT) Only the most recent of5 resultswithin the time period is included. Hemoglobin 7.5(L) 13.5 - 18.0 g/dL LAB HEMETOLOGY METHOD 08/07/2024 3:11 PM EDT [facility] Hematocrit 22.6(L) 40.0 - 54.0 % LAB HEMETOLOGY METHOD 08/07/2024 3:11 PM EDT [facility] Blood Blood sample taken from central line / Unknown Venipuncture / Unknown 08/07/2024 2:57 PM EDT 08/07/2024 3:01 PM EDT us Raghavendra Bess MD LAB BLOOD ORDERABLES Final Resu lt [facility] [address] [place] [address], [place] [phone] * (ABNORMAL) Reticulocyte count (08/05/2024 2:33 AM EDT) [facility] Retic Ct Pct 6.6(H) 0.7 - 1.7 % LAB HEMETOLOGY METHOD 08/05/2024 2:57 AM EDT [facility] Blood Venous blood specimen / Unknown Venipuncture / Unknown 08/05/2024 2:33 AM EDT 08/05/2024 2:38 AM EDT Angelia Mantilla MD LAB BLOOD ORDERABLES Fi nal Result Performing Organization Address [facility] Co de Phone Number [facility] [address] [place] [address], * (ABNORMAL) Vitamin B12 and folate (08/04/2024 7:16 PM EDT) Only the most recent of2 resultswithin the time period is included. [facility] Vitamin B-12 1,413(H) 180 - 914 pcg/mL LAB CHEMISTRY METHOD 08/05/2024 2:38 AM EDT [facility] Folate 13.7 >=3.0 ng/ml LAB CHEMISTRY METHOD 08/05/2024 2:38 AM EDT [facility] Blood Venous blood specimen / Unknown Venipuncture / Unknown 08/04/2024 7:16 PM EDT 08/04/2024 7:21 PM EDT Angelia Mantilla MD LAB BLOOD ORDERABLES Fi nal Result [facility] [address] [place] [address], [place] [phone] * (ABNORMAL) APTT (08/04/2024 7:16 PM EDT) Only the most recent of3 resultswithin the time period is included. Pathologist [facility] aPTT 37.1(H) 25.0 - 37.0 sec LAB COAGULATION METHOD 08/04/2024 7:38 PM EDT [facility] Blood Venous blood specimen / Unknown Venipuncture / Unknown 08/04/2024 7:16 PM EDT 08/04/2024 7:21 PM EDT Douglas Cao MD LAB BLOOD ORDERABLES Final Result [facility] [address] [place] [address], * Magnesium (07/24/2024 6:48 AM EDT) Only the most recent of7 resultswithin the time period is included. [facility] Magnesium 1.8 1.7 - 2.8 mg/dL LAB CHEMISTRY METHOD 07/24/2024 7:27 AM EDT [facility] Blood Venous blood specimen / Unknown Venipuncture / Unknown 07/24/2024 6:48 AM EDT 07/24/2024 6:58 AM EDT Meghan Lopez MD LAB BLOOD ORDERABLES Final Re sult Performing Organization Address City/[facility]/ZIP Co de Phone Number [facility] [address] [place] [address], * ECG-Annotated (07/24/2024) Savage Nava MD ECG ORDERABLES Final Result * Hemoglobin A1c (07/23/2024 6:27 AM EDT) Only the most recent of2 resultswithin the time period is included. [facility] Hemoglobin A1C 4.6 <5.7 % LAB CHEMISTRY METHOD 07/23/2024 8:[address] [facility] Mean Bld Glu Estim. 85 mg/dL LAB CHEMISTRY METHOD 07/23/2024 8:47 AM EDT [facility] Blood Venous blood specimen / Unknown Venipuncture / Unknown 07/23/2024 6:27 AM EDT 07/23/2024 6:41 AM EDT Narrative [facility] - 07/23/2024 8:47 AM EDT ADA Guidelines: ?? Increased risk Diabetes Mellitus A1C 5.7 - 6.4% and Fasting Blood Glucose 100 - 125 mg/dl Diabetes Mellitus: A1C >6.5% and Fasting Blood Glucose >125 mg/dl Rosa Beltre MD LAB BLOOD ORDERABLES Final Resu lt Performing Organization Address [facility] Co de Phone Number [facility] [address] [place] [address], [place] [phone] * 12-Lead ECG (07/22/2024 2:31 PM EDT) Only the most recent of2 resultswithin the time period is included. Ventricular Rate ECG 81 BPM GEMUSE QRS Duration 100 ms GEMUSE Q-T Interval 410 ms GEMUSE QTc 476 ms GEMUSE R [place] 39 degrees GEMUSE T [place] 46 degrees GEMUSE ECG Interpretation Sinus rhythm Normal ECG When compared with ECG of 26-JUN-2024 13:13, No significant change Confirmed by An Willoughby ([id number]) on 07/23/2024 2:20:50 PM GEMUSE 07/22/2024 2:31 PM EDT 07/23/2024 2:20 PM EDT Derek Pennington MD ECG ORDERABLES Final Resul t Performing Organization Address [facility] Co de Phone Number GEMUSE * Lactate, with Reflex (07/22/2024 2:31 PM EDT) LACTIC ACID 1.0 0.5 - 2.2 mmol/L LAB BLOOD GAS METHOD 07/22/2024 2:43 PM EDT [facility] Blood Venous blood specimen / Unknown Venipuncture / Unknown 07/22/2024 2:31 PM EDT 07/22/2024 2:39 PM EDT Derek Pennington MD LAB BLOOD ORDERABLES Final Result Performing Organization Address City/[facility]/ZIP Co de Phone Number [facility] [address] [place] [address], [place] [phone] * Phosphorus (07/22/2024 2:31 PM EDT) Only the most recent of4 resultswithin the time period is included. Phosphorus 3.9 2.5 - 4.5 mg/dL LAB CHEMISTRY METHOD 07/22/2024 3:15 PM EDT [facility] Blood Venous blood specimen / Unknown Venipuncture / Unknown 07/22/2024 2:31 PM EDT 07/22/2024 2:39 PM EDT Derek Pennington MD LAB BLOOD ORDERABLES Final Result Performing Organization Address [facility]/ZIP Co de Phone Number [facility] [address] [place] [address], [place] [phone] * Lipase (07/22/2024 2:31 PM EDT) Lipase 38 11 - 82 unit/L LAB CHEMISTRY METHOD 07/22/2024 3:15 PM EDT [facility] Blood Venous blood specimen / Unknown Venipuncture / Unknown 07/22/2024 2:31 PM EDT 07/22/2024 2:39 PM EDT us Derek Pennington MD LAB BLOOD ORDERABLES Final Result Performing Organization Address City/[facility]/ZIP Co de Phone Number [facility] [address] [place] [address], [place] [phone] * [place] CRITICAL CARE 30-74 MINUTES (07/22/2024 1:32 PM EDT) Narrative Derek Pennington MD - 07/22/2024 1:32 PM EDT Derek Pennington MD ? 07/22/2024 11:01 PM Critical Care Performed by: Derek Pennington MD Authorized by: Derek Pennington MD ?? Critical care provider statement: ??Critical care time (minutes): ??40 ??Critical care time was exclusive of: ??Separately billable procedures and treating other patients ??Critical care was necessary to treat or prevent imminent or life-threatening deterioration of the following conditions: ??Shock and hepatic failure ??Critical care was time spent personally by me on the following activities: ??Ordering and performing treatments and interventions, development of treatment plan with patient or surrogate, ordering and review of laboratory studies, pulse oximetry, evaluation of patient's response to treatment, re-evaluation of patient's condition, examination of patient, review of old charts, interpretation of cardiac output measurements and obtaining history from patient or surrogate ??I assumed direction of critical care for this patient from another provider in my specialty: no ?Care discussed with: admitting provider ?? us Derek Pennington MD IN CLINIC/BEDSIDE ORDERABLE S Final Result * GLUCOSE MONITORING CONTINUOUS (07/20/2024 11:59 AM EDT) us Joann CHAMORRO IN CLINIC/BEDSIDE ORDERABLES Fi nal Result * XR Ankle 3+ Views Right (07/10/2024 11:06 AM EDT) Only the most recent of2 resultswithin the time period is included. Anatomical Region Laterality Modality Lower Extremities, Ankle Right Radiogr aphic Imaging 07/16/2024 9:17 AM EDT Impressions 07/16/2024 9:21 AM EDT Healed posterior malleolar fracture. Tibiofibular joint is congruous post plate fixation and transverse screws. Distal fibula and tibia. No change from 06/19/2024. Report reviewed and signed by : Dr. Luis Kraft MD on 07/16/2024 9:21 AM. Workstation Name - [id number] -------- FINAL REPORT -------- Dictated By: Luis Kraft Dictated Date: 07/16/2024 09:17 ET Assigned Physician: Luis Kraft Reviewed and Electronically Signed By: Luis Kraft Signed Date: 07/16/2024 09:21 ET Workstation ID: [id number] Transcribed By: Self Edit Transcribed Date: 07/16/2024 09:17 ET Narrative 07/16/2024 9:21 AM EDT STUDY: XR ANKLE 3+ VIEWS RIGHT INDICATION: post-op COMPARISON: X-rays of right ankle dated 06/19/[address] scan of 05/17/2024. FINDINGS: Previous plate fixation of lateral malleolus with 4 screws traversing the tibia and fibula. The posterior malleolus fracture is healed. The tibial fibular joint is congruous. No evidence of hardware failure. Procedure Note Jeremie Kraft MD - 07/16/2024 STUDY: XR ANKLE 3+ VIEWS RIGHT INDICATION: post-op COMPARISON: X-rays of right ankle dated 06/19/[address] scan of05/17/2024. FINDINGS: Previous plate fixation of lateral malleolus with 4 screwstraversing the tibia and fibula. The posterior malleolus fracture ishealed. The tibial fibular joint is congruous. No evidence of hardware failure. IMPRESSION: Healed posterior malleolar fracture. Tibiofibular joint is congruous postplate fixation and transverse screws. Distal fibula and tibia. No changefrom 06/19/2024. Report reviewed and signed by : Dr. Luis Kraft MD on 07/16/2024 9:21AM. Workstation Name - [id number] -------- FINAL REPORT -------- Dictated By: Luis Kraft Dictated Date: 07/16/2024 09:17 ET Assigned Physician: Luis Kraft Reviewed and Electronically Signed By: Luis Kraft Signed Date: 07/16/2024 09:21 ET Workstation ID: [id number] Transcribed By: Self Edit Transcribed Date: 07/16/2024 09:17 ET us Galdino CHAMORRO IMG XR PROCEDURES Final Result * SST tube (07/01/2024 12:38 PM EDT) Pathologist [facility] Extra Tube Hold for add-ons. 07/01/2024 7:01 PM EDT [facility] Comment:Auto resulted. Blood Venous blood specimen / Unknown Venipuncture / Unknown 07/01/2024 12:38 PM EDT 07/01/2024 1:17 PM EDT us Roseline CHAMORRO LAB BLOOD ORDERABLES Final R esult [facility] [address] [facility] [place] [address], [place] * (ABNORMAL) Burnett-lambda free light chains, quantitative (07/01/2024 12:38 PM EDT) Burnett Free Light Chain 7.02(H) 0.33 - 1.94 mg/dL 07/06/2024 2:35 PM EDT [facility] Lambda Free Light Chain 4.46(H) 0.57 - 2.63 mg/dL 07/06/2024 2:35 PM EDT [facility] Burnett/Lambda FLC Ratio 1.57 0.26 - 1.65 07/06/2024 2:35 PM EDT [facility] Comment: Test performed at [facility], [address], [place], [place] ??[address] ? [phone] Sonja Tsang MD, PhD - Network Support Blood Venous blood specimen / Unknown Venipuncture / Unknown 07/01/2024 12:38 PM EDT 07/01/2024 1:17 PM EDT us Vanesa Mireles NP LAB BLOOD ORDERABLES Final Result [facility] [address] [place] [address] * Immunofixation electrophoresis serum (07/01/2024 12:38 PM EDT) [facility] Serum Immunofixation See Below 07/06/2024 3:40 PM EDT [facility] Comment: A few tiny oligoclonal bands are seen in the gamma region. ??This is a nonspecific pattern that may be seen in a variety of reactive conditions. Test performed at [facility], [address] , [place], [place] ??[address] ? [phone] Sonja Tsang MD, PhD - Network Support Blood Venous blood specimen / Unknown Venipuncture / Unknown 07/01/2024 12:38 PM EDT 07/01/2024 1:17 PM EDT [employer] LAB BLOOD ORDERABLES Final Result Performing Organization Address City/[facility]/ZIP Co de Phone Number [facility] [address] [place] [address] * Immunoglobulins IgG, IgA, IgM (07/01/2024 12:38 PM EDT) [facility] Total IgG 904 635 - 1,741 mg/dL LAB CHEMISTRY METHOD 07/01/2024 6:02 PM EDT [facility] IgA 236 66 - 433 mg/dL LAB CHEMISTRY METHOD 07/01/2024 6:02 PM EDT [facility] IgM 120 45 - 281 mg/dL LAB CHEMISTRY METHOD 07/01/2024 6:02 PM EDT [facility] Blood Venous blood specimen / Unknown Venipuncture / Unknown 07/01/2024 12:38 PM EDT 07/01/2024 1:17 PM EDT [facility] LAB BLOOD ORDERABLES Final Result Performing Organization Address City/[facility]/ZIP Co de Phone Number [facility] [address] [place] [address], [place] [phone] * (ABNORMAL) Protein electrophoresis, serum (07/01/2024 12:38 PM EDT) [facility] Protein Total 6.4 6.4 - 8.2 g/dL 07/06/2024 3:40 PM EDT [facility] Albumin Percent 58.6 52.9 - 66.9 % 07/06/2024 3:40 PM EDT [facility] Albumin g/dl 3.8 3.7 - 4.9 g/dL 07/06/2024 3:40 PM EDT [facility] Alpha 1 Globulin % 6.2(H) 3.3 - 5.8 % 07/06/2024 3:40 PM EDT [facility] Alpha 1 Globulin 0.4 0.2 - 0.4 g/dL 07/06/2024 3:40 PM EDT [facility] Alpha 2 Globulin % 9.0 7.5 - 13.4 % 07/06/2024 3:40 PM EDT [facility] Alpha 2 Globulin 0.6 0.5 - 0.9 g/dL 07/06/2024 3:40 PM EDT [facility] Beta Globulin % 12.6 8.5 - 13.7 % 07/06/2024 3:40 PM EDT [facility] Beta Globulin 0.8 0.6 - 1.0 g/dL 07/06/2024 3:40 PM EDT [facility] Gamma Globulin % 13.6 8.8 - 19.2 % 07/06/2024 3:40 PM EDT [facility] Gamma Globulin 0.9 0.6 - 1.4 g/dL 07/06/2024 3:40 PM EDT [facility] Interpretation See Below 07/06/2024 3:40 PM EDT [facility] Comment: No monoclonal proteins seen on serum protein electrophoresis. Test performed at [facility], [address], [place], [place] ??[address] ? [phone] Sonja Tsang MD, PhD - Network Support Blood Venous blood specimen / Unknown Venipuncture / Unknown 07/01/2024 12:38 PM EDT 07/01/2024 1:17 PM EDT us Vanesa Mireles [employer] LAB BLOOD ORDERABLES Final Result [place] [address] * XR Chest 1 View (06/26/2024 2:31 PM EST) Anatomical Region Laterality Modality Body Radiographic Renetta ging 06/26/2024 3:23 PM EST Impressions 06/26/2024 3:24 PM EST No acute cardiopulmonary process. Report reviewed and signed by : Dr. Chet Vasques on 06/26/2024 3:24 PM. Workstation Name - [id number] -------- FINAL REPORT -------- Dictated By: Chet Vasques Dictated Date: 06/26/2024 15:23 ET Assigned Physician: Chet Vasques Reviewed and Electronically Signed By: Chet Vasques Signed Date: 06/26/2024 15:24 ET Workstation ID: [id number] Transcribed By: Self Edit Transcribed Date: 06/26/2024 15:23 ET Narrative 06/26/2024 3:24 PM EST CHEST RADIOGRAPH: Single AP portable view of the chest. INDICATION: dyspnea COMPARISON: 05/17/2024 FINDINGS: The lungs are clear. No pleural effusion or pneumothorax is demonstrated. The cardiomediastinal silhouette is within normal limits. ??Right IJ accessed chest port terminates in the right atrium. Mild degenerative changes are present within the thoracic spine. Procedure Note Chet Vasques MD - 06/26/2024 CHEST RADIOGRAPH: Single AP portable view of the chest. INDICATION: dyspnea COMPARISON: 05/17/2024 FINDINGS: The lungs are clear. No pleural effusion or pneumothorax isdemonstrated. The cardiomediastinal silhouette is within normal limits. Right IJaccessed chest port terminates in the right atrium. Mild degenerative changes are present within the thoracic spine. IMPRESSION: No acute cardiopulmonary process. Report reviewed and signed by : Dr. Chet Vasques on 06/26/2024 3:24 PM.Workstation Name - [id number] -------- FINAL REPORT -------- Dictated By: Chet Vasques Dictated Date: 06/26/2024 15:23 ET Assigned Physician: Chet Vasques Reviewed and Electronically Signed By: Chet Vasques Signed Date: 06/26/2024 15:24 ET Workstation ID: [id number] Transcribed By: Self Edit Transcribed Date: 06/26/2024 15:23 ET us Erik Rand MD IMG XR PROCEDURES Final Result * (ABNORMAL) RHYTHM ECG, REPORT (06/26/2024 1:13 PM EST) Narrative Erik Rand MD - 06/26/2024 1:13 PM EST Erik Rand MD ? 06/26/2024 ??2:31 PM ECG Rhythm Interpretation and Report Date/Time: 06/26/2024 1:13 PM Performed by: Erik Rand MD Authorized by: Erik Rand MD ?? ECG interpreted by ED Physician in the absence of a addictions therapist: yes ?? Previous ECG: ??Previous ECG: ??Compared to current ??Similarity: ??No change ??Comparison ECG info: ??05/17/2024 Interpretation: ??Interpretation: abnormal ?? Quality: ??Tracing quality: ??Limited by artifact Rate: ??ECG rate: ??73 ??ECG rate assessment: normal ?? Rhythm: ??Rhythm: sinus rhythm ?? Ectopy: ??Ectopy: none ?? QRS: ??QRS axis: ??Normal ??QRS intervals: ??Normal ??QRS conduction: normal ?? ST segments: ??ST segments: ??Normal T waves: ??T waves: non-specific ?? us Erik Rand MD ECG ORDERABLES Final Result * (ABNORMAL) Manual differential (06/26/2024 12:39 PM EST) Pathologist [facility] Neutrophils % 72.0 44.0 - 74.0 % LAB HEMETOLOGY METHOD 06/26/2024 2:59 PM EST [facility] Lymphocytes % 15.0(L) 20.0 - 48.0 % LAB HEMETOLOGY METHOD 06/26/2024 2:59 PM [facility] Monocytes % 7.0 2.0 - 12.0 % LAB HEMETOLOGY METHOD 06/26/2024 2:59 PM [facility] Eosinophils % 5.0 0.0 - 6.0 % LAB HEMETOLOGY METHOD 06/26/2024 2:59 PM [facility] Basophils % 1.0 0.0 - 2.0 % LAB HEMETOLOGY METHOD 06/26/2024 2:59 PM [facility] Neutrophils Absolute 2.23 1.80 - 7.80 K/mcL LAB HEMETOLOGY METHOD 06/26/2024 2:59 PM [facility] Lymphocytes Absolute 0.47(L) 1.00 - 3.20 K/mcL LAB HEMETOLOGY METHOD 06/26/2024 2:59 PM [facility] Monocytes Absolute 0.22 0.00 - 0.80 K/mcL LAB HEMETOLOGY METHOD 06/26/2024 2:59 PM [facility] Eosinophils Absolute 0.16 0.00 - 0.50 K/mcL LAB HEMETOLOGY METHOD 06/26/2024 2:59 PM [facility] Basophils Absolute 0.03 0.00 - 0.20 K/mcL LAB HEMETOLOGY METHOD 06/26/2024 2:59 PM [facility] Polychromasia Present Occasional LAB HEMETOLOGY METHOD 06/26/2024 2:59 PM [facility] Microcytes Present Present LAB HEMETOLOGY METHOD 06/26/2024 2:59 PM [facility] Macrocytes Present Occasional LAB HEMETOLOGY METHOD 06/26/2024 2:59 PM [facility] Platelet Estimate Platelets Appear Decreased LAB HEMETOLOGY METHOD 06/26/2024 2:59 PM [facility] Blood Venous blood specimen / Unknown Venipuncture / Unknown 06/26/2024 12:39 PM EST 06/26/2024 12:51 PM EST Erik Rand MD LAB BLOOD ORDERABLES Final Res ult [facility] [address] [place] [address], [place] [phone] * [place] CRITICAL CARE 30-74 MINUTES (06/26/2024 12:29 PM EST) Erik Rich MD - 06/26/2024 12:29 PM EST Erik Rand MD ? 06/26/2024 ??2:31 PM Critical Care Performed by: Erik Rand MD Authorized by: Erik Rand MD ?? Critical care provider statement: ??Critical care time (minutes): ??48 ??Critical care was necessary to treat or prevent imminent or life-threatening deterioration of the following conditions: ??Cardiac failure, circulatory failure, shock, renal failure and metabolic crisis ??Critical care was time spent personally by me on the following activities: ??Development of treatment plan with patient or surrogate, examination of patient, obtaining history from patient or surrogate, ordering and performing treatments and interventions, ordering and review of laboratory studies, ordering and review of radiographic studies, pulse oximetry, re-evaluation of patient's condition and review of old charts ??Care discussed with: admitting provider ?? Result [facility] Erik Rand MD IN CLINIC/BEDSIDE ORDERABLES F inal Result * Depression Screening (10/21/2023) [facility] Depression Screening Abstracted Result [facility] Historical Provider HEALTH MAINTENANCE Final Result * Urine Albumin Creatinine Ratio (10/08/2023) [facility] Urine Albumin Creatinine Ratio Abstracted Result [facility] Historical [place]ADO HEALTH MAINTENANCE Final Result * (ABNORMAL) Lipid panel (05/28/2023) [facility] Triglycerides 101 <=150 mg/dL Cholesterol 202(A) 0 - 200 mg/dL HDL 58 32 - 70 mg/dL LDL Cholesterol 124 50 - 130 mg/dL Blood Venous blood specimen / Unknown Historical Provider LAB BLOOD ORDERABLES Jesenia l Result * Colonoscopy (11/22/2022) Colonoscopy Abstracted, No interpretation Anatomical Region Laterality Modality Other Historical Provider HEALTH MAINTENANCE Final Result from Last 3 Months or Most Recently Relevant to Health Maintenance Insurance [employer] [place] [facility] MEDICARE [place]VANTAGE [place] - [place] * Guarantor: Jagdish Amato Account Type Relation to Patient Date of Phone Billing Address Personal/Family Self [address] [place] [address] [employer] [place] * Guarantor: Jagdish Amato Account Type Relation to Patient Date of Phone Billing Address Personal/Family Self 1970 [address] [place] [address] Advance Directives * Full Code - Default (Latest Code Status on File) Date Activated Date Inactivated Comments 08/04/2024 10:31 PM 08/09/2024 4:39 PM This is ord er is used when code status has not been discussed with the patient, or code status is otherwise unknown/unconfirmed To update the patient's code status, place a code status order. Do not modify or discontinue any currently active code status orders. * Full Code - Confirmed Date Activated Date Inactivated Comments 07/22/2024 2:37 PM 07/24/2024 5:08 PM This code stat us was ascertained in the following way: Code status discussion: discussion with patient To update the patient's code status, place a code status order. Do not modify or discontinue any currently active code status orders. * Full Code - Confirmed Date Activated Date Inactivated Comments 06/26/2024 3:08 PM 06/29/2024 4:14 PM This code sta tus was ascertained in the following way: Code status discussion: discussion with patient To update the patient's code status, place a code status order. Do not modify or discontinue any currently active code status orders. * Full Code - Default Date Activated Date Inactivated Comments 05/17/2024 7:59 PM 05/22/2024 6:38 PM This is orde r is used when code status has not been discussed with the patient, or code status is otherwise unknown/unconfirmed To update the patient's code status, place a code status order. Do not modify or discontinue any currently active code status orders. Care Teams Rd Mechanical Engineer Relationship Specialty Start Date End Date Rios Sousa MD [address] [facility] [address] [place] [address] PCP - General Family Medicine 05/06/24
[2024-09-02 13:36] VITALS: BP 130/60
== END 2024-09-02 13:41 | disposition home or self-care (01) ==
LOC: HO.HKAE 13:21
PROVIDERS: PCP Family Medicine; Visit Provider Internal Medicine Hypertension Specialist
DX: N18.9 Chronic kidney disease, unspecified (principal); D64.9 Anemia, unspecified
CPT/HCPCS: 99214

== ENCOUNTER → 2024-09-02 13:20 | Outpatient (BNVA) | payer BC, SELFPAY | PROVIDERS: PCP Family Medicine; Visit Provider Internal Medicine Hypertension Specialist | DX: Z13.89 Encounter for screening for other disorder (principal) ==

== ENCOUNTER 2024-12-30 14:06 | Outpatient (AMB) | payer BC, SELFPAY ==
--- OUTSIDE RECORDS SUMMARY | 2024-02-05 20:00 | XMS_ITS | Encounter Summary ---
Author Organization [facility] Address [address] [place] [address] Care Team Providers Care Horologist Apprentice Name Role Phone Rios Sousa MD Primary Care Provider [phone] Encounter Details Date Type Department Care Team (Late st Contact Info) Description 02/05/2024 8:00 PM EDT Hospital Encounter TH HISTORIC ENCOUNTERS [facility]AST[facility] CONVERSION ONLY Isaiah Robert MD [address] [place] [address] [address] [place] [address] Social History Tobacco Use Types Packs/Day Years Used Date Smoking Tobacco: Former Cigarettes Smokeless Tobacco: Never Alcohol Use Standard Drinks/Week Comments Not Currently 3 (1 standard drink = 0.6 oz pur e alcohol) Housing Instability Answer Date Recorde d Are you worried that in the next 2 months you may not have stable housing? No 07/22/2024 Food Access & Nutrition Answer Date Rec orded Do you have access to a vari ety of food including fruits and vegetables? Yes 07/22/2024 Access to Healthcare Answer Date Record ed Within the last 3 months, ho w many times did you visit the emergency department for your medical care? 4 07/22/2024 Health Literacy Answer Date Recorded How often do you need to hav e someone help you when you read instructions, pamphlets, or other written material from your doctor or pharmacy? Never 07/22/2024 Caregiver: How often do you need to have someone help you when you read instructions, pamphlets, or other written material from your doctor or pharmacy? Not on file 07/22/2024 Financial Risk Answer Date Recorded How hard is it for you to pa y for the very basics like food, housing, medical care, and air conditioning / heating? Not very hard 07/22/2024 Transportation Answer Date Recorded Has the lack of transportati on kept you from meetings, work, or from getting things needed for daily living? No Has the lack of transportati on kept you from medical appointments or from getting medications? No 07/22/2024 Social Isolation Answer Date Recorded How often do you feel lonely or isolated from th ose around you? Never 07/22/2024 Food Risk Answer Date Recorded Within the past 12 months we worried whether our food would run out before we got money to buy more. Never true 07/22/2024 Within the past 12 months th e food we bought just didn't last and we didn't have money to get more. Never true 07/22/2024 Dependent Care Answer Date Recorded Do you need help finding or paying for care for your loved ones. For example, children's author or elderly care for an older adult? No 07/22/2024 Education Answer Date Recorded Do you think completing more education or training, like finishing a GED, going to college, or learning a trade, would be helpful for you? No 07/22/2024 Employment and Income Answer Date Recor ded During the last four weeks, have you been actively looking for work? No 07/22/2024 Living Situation Answer Date Recorded What is your living situation? 0 07/22/2024 Interpersonal Safety Answer Date Record ed Physical Abuse 11/24/2024 Verbal Abuse 11/24/2024 Sex and Gender Information Value Date Recorded Sex Assigned at Male 06/03/2024 2:26 PM EST Legal Sex Male 12:56 PM EST Gender Identity Male 06/03/2024 2:26 PM EST Sexual Orientation Straight 06/03/2024 2: 26 PM EST documented as of this encounter Last Filed Vital Signs Vital Sign Reading Time Taken Comments Blood Pressure - - Pulse - - Temperature - - Respiratory Rate - - Oxygen Saturation - - Inhaled Oxygen Concentration - - Weight 100 kg (221 lb 6.4 oz) 01/09/2024 11:06 A M EDT Height 182.9 cm (6') 01/02/2024 1:12 PM EDT Body Mass Index 30.03 01/02/2024 1:12 PM EDT documented in this encounter Plan of Treatment Upcoming Encounters Date Type Department Care Team (Late st Contact Info) Description 02/08/2025 4:15 PM EDT [facility] [address] [place] [address] Joann Strauss PA [address] [place] [id number] 02/09/2025 10:00 AM EDT [facility] [address] [place] [address] 02/09/2025 10:30 AM EDT Office Visit [facility] [address] [place] [address] Fitz Dumont PA [address] [place], [place] [id number] 02/11/2025 11:20 AM EDT Office Visit [facility] [place] [address] [place] [address] Leonid Watson, [address] [place] [address] [place] [address] 03/01/2025 2:15 PM EST Clinical [facility] - [address] [place] [id number] Jose D Hough, RN [address] [place], [place] [id number] documented as of this encounter Visit Diagnoses Not on filedocumented in this encounter Care Teams Horologist Apprentice Relationship Specialty Start Date End Date Rios Sousa MD PCP - General Family Medicine 03/03/15 05/05/24 documented as of this encounter
--- OUTSIDE RECORDS SUMMARY | 2024-12-28 12:26 | XMS_ITS | Encounter Summary ---
Author Organization [facility] Address [address] [place] [address] Care Team Providers Care Hand Stonecutter Name Role Phone Rios Sousa MD Primary Care Provider [phone] Encounter Details Date Type Department Care Team (Latest Contact Info) Description 12/28/2024 12:26 PM EDT Hospital Encounter [facility] [address] [place] [phone] Iron deficiency anemia due to chronic blood loss; Hyponatremia Social History Tobacco Use Types Packs/Day Years [...] your loved ones. For example, child care associate teacher or elderly care for an older adult? [...] Sign Reading Time Taken Comments Blood Pressure 120/81 12/28/2024 1:19 PM EDT Pulse 85 12/28/2024 1:19 PM EDT Temperature 36.7 C (98.1 F) 12/28/2024 1:19 PM EDT Respiratory Rate 18 12/28/2024 1:19 PM EDT Oxygen Saturation 99% 12/28/2024 1:19 PM EDT Inhaled Oxygen Concentration - - Weight 106 kg (232 lb 9.6 oz) 12/28/2024 1:19 PM EDT Height - - Body Mass Index 31.55 11/24/2024 6:00 PM EDT documented in this encounter Functional Status * Are you deaf or do you have serious difficulty hearing? Answer Date of Assessment Author No 11/24/2024 3:49 PM EDT Yuly Singh RN * Are you blind or do you have serious difficulty seeing, even when wearing glasses? Answer Date of Assessment Author No 11/24/2024 3:49 PM EDT Yuly Singh RN * Do you have serious difficulty walking or climbing stairs? Answer Date of Assessment Author No 11/24/2024 3:49 PM EDT Yuly Singh RN * Do you have serious difficulty dressing or bathing? Answer Date of Assessment Author No 11/24/2024 3:49 PM EDT Yuly Singh RN * Because of a physical, mental, or emotional condition, do you have serious difficulty doing errandsalone such as visiting the doctor? Answer Date of Assessment Author No 11/24/2024 3:49 PM EDT Yuly Singh RN documented as of this encounter Mental Status * Because of a physical, mental, or emotional condition, do you have serious difficulty concentrating, remembering, or making decisions? (5 years old or older) Answer Entry Date Author No 11/24/2024 3:49 PM EDT Yuly Singh RN documented in this encounter Progress Notes * Olga Lidia Metcalf RN - 12/28/2024 1:30 PM EDT Pt to clinic for labs/RN visit. Patient denies any changes since last visit. R SL PAC accessed per protocol. Brisk BR noted. Due labs drawn and cbc reviewed. Patient does not meet parameters for transfusion with hgb of 11.6 today. Will RTC on 02/09 for labs & HELENE visit. documented in this encounter Plan of Treatment Upcoming Encounters Date Type Department Care Team (Late st Contact Info) Description 02/08/2025 4:15 PM EDT Office Visit [facility] [address] [place] [address] Joann Strauss PA [address] [place], [place] [phone] 02/09/2025 10:00 AM EDT [facility] [address] [place] [phone] 02/09/2025 10:30 AM EDT Office Visit [facility] [place] [address] [place] [address] Fitz Dumont PA [address] [place], [place] [phone] 02/11/2025 11:20 AM EDT [facility] [address] [place] [phone] Leonid Watson DO [address] [place] [address] [place] [id number] 03/01/2025 2:15 PM [facility] Clinical Support [facility] - [address] [place] [phone] Jose D Hough, TIFFANIE [address] [place], [place] [phone] documented as of this encounter Procedures Procedure Name Priority Date/Time Associated Diagnosis Comments COMPREHENSIVE METABOLIC PANEL Routine 12/28/2024 1:36 PM EDT Hyponatremia CBC WITH AUTO DIFFERENTIAL Routine 12/28/2024 1:25 PM EDT Iron deficiency anemia due to chronic blood loss CBC AND DIFFERENTIAL Routine 12/28/2024 1:25 PM EDT Iron deficiency anemia due to chronic blood loss TYPE AND SCREEN Routine 12/28/2024 1:25 PM EDT Iron deficiency anemia due to chronic blood loss documented in this encounter Results * (ABNORMAL) Comprehensive metabolic panel (12/28/2024 1:36 PM EDT) Sodium 142 135 - 145 mmol/L LAB CHEMISTRY METHOD 12/28/2024 4:18 PM EDT [facility] Potassium 4.2 3.5 - 5.1 mmol/L LAB CHEMISTRY METHOD 12/28/2024 4:18 PM EDT [facility] Chloride 106 98 - 107 mmol/L LAB CHEMISTRY METHOD 12/28/2024 4:18 PM EDT [facility] CO2 25 24 - 32 mmol/L LAB CHEMISTRY METHOD 12/28/2024 4:18 PM EDT [facility] Anion Gap 11 5 - 14 LAB CHEMISTRY METHOD 12/28/2024 4:18 PM EDT [facility] Glucose 136 70 - 199 mg/dL LAB CHEMISTRY METHOD 12/28/2024 4:18 PM EDT [facility] BUN 19 9 - 20 mg/dL LAB CHEMISTRY METHOD 12/28/2024 4:18 PM EDT [facility] Creatinine 1.30 0.70 - 1.30 mg/dL LAB CHEMISTRY METHOD 12/28/2024 4:18 PM EDT [facility] eGFR 64 >=60 mL/min/1. 73m2 LAB CHEMISTRY METHOD 12/28/2024 4:18 PM EDT [facility] Comment:Calculation based on the Chronic Kidney Disease Epidemiology Collaboration (CKD-EPI) equation refit without adjustment for race. BUN/Creatinine Ratio 14.6 12.0 - 20.0 LAB CHEMISTRY METHOD 12/28/2024 4:18 PM EDT [facility] Calcium 9.1 8.4 - 10.2 mg/dL LAB CHEMISTRY METHOD 12/28/2024 4:18 PM EDT [facility] AST (SGOT) 24 5 - 40 unit/L LAB CHEMISTRY METHOD 12/28/2024 4:18 PM EDT [facility] ALT (SGPT) 13 7 - 52 unit/L LAB CHEMISTRY METHOD 12/28/2024 4:18 PM EDT [facility] Alkaline Phosphatase 169(H) 34 - 104 unit/L LAB CHEMISTRY METHOD 12/28/2024 4:18 PM EDT [facility] Total Protein 6.2(L) 6.4 - 8.5 g/dL LAB CHEMISTRY METHOD 12/28/2024 4:18 PM EDT [facility] Albumin 4.0 3.5 - 5.0 g/dL LAB CHEMISTRY METHOD 12/28/2024 4:18 PM EDT [facility] Total Bilirubin 1.1(H) 0.3 - 1.0 mg/dL LAB CHEMISTRY METHOD 12/28/2024 4:18 PM EDT [facility] Blood Venous blood specimen / Unknown Venipuncture / Unknown 12/28/2024 1:36 PM EDT 12/28/2024 1:38 PM EDT us Fitz [facility] LAB BLOOD ORDERABLES Final Res ult [facility] [address] [place] [address], * (ABNORMAL) CBC auto differential (12/28/2024 1:25 PM EDT) WBC 3.4(L) 4.0 - 10.5 K/mcL LAB HEMETOLOGY METHOD 12/28/2024 1:43 PM EDT [facility] RBC 4.00(L) 4.70 - 6.00 M/mcL LAB HEMETOLOGY METHOD 12/28/2024 1:43 PM EDT [facility] Hemoglobin 11.6(L) 13.5 - 18.0 g/dL LAB HEMETOLOGY METHOD 12/28/2024 1:43 PM EDT [facility] Hematocrit 38.0(L) 40.0 - 54.0 % LAB HEMETOLOGY METHOD 12/28/2024 1:43 PM [facility] MCV 95.0 78.0 - 100.0 FL LAB HEMETOLOGY METHOD 12/28/2024 1:43 PM EDT [facility] MCH 29.0 25.0 - 33.0 pcg LAB HEMETOLOGY METHOD 12/28/2024 1:43 PM [facility] MCHC 30.5(L) 32.0 - 36.0 g/dL LAB HEMETOLOGY METHOD 12/28/2024 1:43 PM [facility] RDW 20.1(H) 12.1 - 17.7 % LAB HEMETOLOGY METHOD 12/28/2024 1:43 PM [facility] Platelets 92(L) 150 - 450 K/mcL LAB HEMETOLOGY METHOD 12/28/2024 1:43 PM [facility] Comment: No plt clumps observed Consistent with previous result MPV 11.3 7.4 - 11.4 FL LAB HEMETOLOGY METHOD 12/28/2024 1:43 PM [facility] Neutrophils Relative 62.1 44.0 - 74.0 % LAB HEMETOLOGY METHOD 12/28/2024 1:43 PM [facility] Lymphocytes Relative 18.5(L) 20.0 - 48.0 % LAB HEMETOLOGY METHOD 12/28/2024 1:43 PM [facility] Monocytes Relative 11.0 2.0 - 12.0 % LAB HEMETOLOGY METHOD 12/28/2024 1:43 PM [facility] Eosinophils Relative 7.2(H) 0.0 - 6.0 % LAB HEMETOLOGY METHOD 12/28/2024 1:43 PM EDT [facility] Basophils Relative 0.9 0.0 - 2.0 % LAB HEMETOLOGY METHOD 12/28/2024 1:43 PM EDT [facility] Neutrophils Absolute 2.08 1.80 - 7.80 K/mcL LAB HEMETOLOGY METHOD 12/28/2024 1:43 PM EDT [facility] Lymphocytes Absolute 0.62(L) 1.00 - 3.20 K/mcL LAB HEMETOLOGY METHOD 12/28/2024 1:43 PM EDT [facility] Monocytes Absolute 0.37 0.00 - 0.80 K/[facility] LAB HEMETOLOGY METHOD 12/28/2024 1:43 PM EDT [facility] Eosinophils Absolute 0.24 0.00 - 0.50 K/mcL LAB HEMETOLOGY METHOD 12/28/2024 1:43 PM EDT [facility] Basophils Absolute 0.03 0.00 - 0.20 K/[facility] LAB HEMETOLOGY METHOD 12/28/2024 1:43 PM EDT [facility] Blood Venous blood specimen / Unknown Venipuncture / Unknown 12/28/2024 1:25 PM EDT 12/28/2024 1:38 PM EDT us Velma Gonzalez RECORD CLERK SALESPERSON LAB BLOOD ORDERABLES Final Re sult [facility][id number] [address] [place] [address], [place] * Type and screen (12/28/2024 1:25 PM EDT) ABO Group A 12/28/2024 4:50 PM EDT [facility] Rh Type Positive 12/28/2024 4:50 PM EDT [facility] Antibody Screen Negative 12/28/2024 4:50 PM EDT [facility] Blood Venous blood specimen / Unknown Venipuncture / Unknown 12/28/2024 1:25 PM EDT 12/28/2024 1:38 PM EDT Chai Vidal MD LAB BLOOD BANK TEST ORDERABLES Final Result [facility] [address] [place] [address], [place] [phone] documented in this encounter Visit Diagnoses Diagnosis Iron deficiency anemia due to chronic blood loss Iron deficiency anemia secondary to blood loss (chronic) Hyponatremia Hyposmolality and/or hyponatremia documented in this encounter Additional Health Concerns Assessment Noted Time PHQ-9 Depression Total Score: 0 12/24/19 10:10 AM EDT documented as of this encounter Care Teams Hand Stonecutter Relationship Specialty Start Date End Date Rios Sousa MD [address] [place] [address] PCP - General Family Medicine 11/24/24 documented as of this encounter
--- OUTSIDE RECORDS SUMMARY | 2024-12-30 10:45 | XMS_ITS | Encounter Summary ---
Author Organization [facility] Address [address] [place] [address] Care Team Providers Care Programming Manager Name Role Phone Rios Sousa MD Primary Care Provider [phone] Reason for Visit * Reason Comments Diabetes Mellitus Encounter Details Date Type Department Care Team (Latest Contact Info) Description 12/30/2024 10:45 AM EDT [facility] [address] [place] [phone] Jose D Hough, RN [facility] [place] [address] Type 2 diabetes mellitus without complication, with long-term current use of insulin (CMS/HCC V24, CMS/HCC V28) (Primary Dx) Social History Tobacco Use Types [...] for your loved ones. For example, children's entertainer or elderly care for an older adult? [...] Sign Reading Time Taken Comments Blood Pressure 142/80 12/30/2024 10:39 AM EDT Pulse 72 12/30/2024 10:39 AM EDT Temperature - - Respiratory Rate - - Oxygen Saturation - - Inhaled Oxygen Concentration - - Weight 105 kg (231 lb 6.4 oz) 12/30/2024 10:39 A M EDT Height - - Body Mass Index 31.38 11/24/2024 6:00 PM EDT documented in this [...] documented in this encounter Progress Notes * Jose D Hough RN - 12/30/2024 10:45 AM EDT Your numbers are looking good. If you run out of Guanako Sensors, please contact clinic to see if we have samples. Continue Ozempic 1 mg every Saturday Reduce Tresiba to 12 units every evening Continue Fiasp 13 units for big carbohydrate meals * Jose D Hough RN - 12/30/2024 10:45 AM EDT Images from the original note were not included. DIABETES EDUCATION FOLLOW-UP SESSION Jagdish Amato age group is 45-65 years old is here for a follow up visit with a registered nurse.. Patient comes in for diabetes self-management training for (primary dx) E11.65,Z79.4 (ICD-10-CM) - Type 2 diabetes mellitus with hyperglycemia, with long-term current use of insulin Referred by Joann Strauss PA-C on 07/20/2024 The patient's race is and their preferred language is Turkmen. The patient has a hearing impairment. The patient is being seen for Chief Complaint Patient presents with Diabetes Mellitus Medical History: Past Medical History: Diagnosis Date Acid reflux DX:Acid reflux Alcoholism ([facility] V24, [facility] V28) DX:Alcoholism ([facility]) Anemia DX:Anemia Bleeding disorder ([facility] V24) DX:Bleeding disorder ([facility]) Bruises easily DX:Bruises easily Chicken pox DX:Chicken pox Depression DX:Depression;COMMENT:Remote hx Diabetes mellitus, type II ([facility] V24, [facility] V28) DX:Diabetes mellitus, type II ([facility]) DM (diabetes mellitus) ([facility] V24, [facility] V28) DX:DM (diabetes mellitus) ([facility]) DVT (deep venous thrombosis) ([facility] V24, [facility] V28) 03/2016 DX:DVT (deep venous thrombosis) ([facility]);COMMENT:left LE, patient states chronic clot Fracture of [...] and tingling of both feet Pulmonary embolus ([facility] V24, [facility] V28) 02/27/2016 DX:Pulmonary embolus (HCC) Rheumatic fever DX:Rheumatic fever Rosacea DX:Rosacea Sleep apnea, obstructive DX:Sleep apnea, obstructive;COMMENT:CPAP recommended, pt unable to tolerate Staph infection 2006 DX:Staph infection;COMMENT:Left arm Visual impairment DX:Visual impairment;COMMENT:Wears glasses Patient identifies diabetes diagnosis correctly and understands treatment options: Yes Pertinent results are: Lab Results Component Value Date CHOL 83 11/02/2024 HDL 19 (L) 11/02/2024 LDLCALC 45 (L) 11/02/2024 VLDL 18.6 11/02/2024 TRIG 93 11/02/2024 Last 3 A1C: Lab Results Component Value Date HGBA1C 5.7 (H) 10/05/2024 HGBA1C 4.6 07/23/2024 HGBA1C 4.9 06/28/2024 Most recent HbA1c % change: +1.1 % Vitals: 12/30/24 1039 BP: (!) 142/80 Pulse: 72 Weight: 105 kg (231 lb 6.4 oz) Calculated Body mass index is 31.38 kg/m??. BMI is above average. The patient received exercise education because they have an above normal BMI. Annual Health Care: Flu: Scheduled for next week COVID-19: Scheduled for next week Pneumonia: up to date Foot Assessment: The patient reports no foot problems. The patient has not had a foot exam this past year. Dental Assessment: The patient reports no dental problems. The patient has not had a dental exam this past year. Ophthalmic Assessment: The patient reports cataracts. The patient has had a dilated eye exam withinthe last year. Awareness of risk of chronic complications: Yes ; pt indicates he/she has support: The patient lacks significant family support. Diabetes Distress What bothers you the most about living with and managing diabetes? Low blood glucose Relevant Medications: Current Outpatient Medications: allopurinoL (ZYLOPRIM) 300 mg tablet, Take 1 tablet (300 mg total) by mouth 1 (one) time each day.,Disp: 30 each, Rfl: 11 amitriptyline (ELAVIL) 50 mg tablet, TAKE ONE TABLET (50 MG TOTAL) BY MOUTH AT BEDTIME, Disp: 30 tablet, Rfl: 11 blood-glucose sensor (FreeStyle Guanako 3 Plus Sensor) device, 1 EA continuously. Change sensor every15 days. Box = Kit = EA., Disp: 6 each, Rfl: 4 buPROPion SR (WELLBUTRIN SR) 150 mg 12 hr tablet, TAKE ONE TABLET (150MG TOTAL) BY MOUTH ONCE DAILYDO NOT CRUSH, CHEW, OR SPIT. (Patient not taking: Reported on 12/23/2024), Disp: 30 tablet, Rfl: 11 carvediloL (COREG) 12.5 mg tablet, TAKE 1 TABLET BY MOUTH TWICE A DAY WITH FOOD, Disp: 180 tablet, Rfl: 1 colchicine (COLCRYS) 0.6 mg tablet, TAKE ONE TABLET (0.6MG TOTAL) BY MOUTH ONCE DAILY, Disp: 30 tablet, Rfl: 2 cyanocobalamin (VITAMIN B-12) 500 mcg tablet, TAKE ONE TABLET (500MCG TOTAL) BY MOUTH ONCE DAILY, Disp: 90 tablet, Rfl: 1 folic acid (FOLVITE) 1 mg tablet, Take 1 tablet (1 mg total) by mouth 1 (one) time each day., Disp:30 each, Rfl: 11 glucagon (Gvoke HypoPen 2-Pack) 1 mg/0.2 mL auto-injector, Inject 1 mg under the skin if needed (Incase of severe low sugars. If used, call 911)., Disp: 0.4 mL, Rfl: 1 glucose blood (FreeStyle Precision Jerome Strips) test strip, Use to test glucose 4 times daily, Disp:200 each, Rfl: 11 insulin glargine (LANTUS SoloStar) 100 unit/mL (3 mL) injection pen, Inject 15 Units under the skinat bedtime. (Patient taking differently: Inject 13 Units under the skin at bedtime.), Disp: 15 mL, Rfl: 0 insulin lispro (HumaLOG KwikPen) 100 unit/mL injection pen, Inject 13-15 Units under the skin 3 (three) times a day before meals., Disp: 45 mL, Rfl: 0 iron,carbonyl-vitamin C 65 mg iron- 125 mg tablet,delayed release (DR/EC), Take 1 tablet by mouth every 60 (sixty) hours., Disp: 60 tablet, Rfl: 1 ketoconazole (NIZORAL) 2 % shampoo, APPLY TOPICALLY TWICE DAILY APPLY TO DAMP SKIN, LATHER, LEAVE ON FOR 5 MINUTES AND RINSE, Disp: 120 mL, Rfl: 11 magnesium oxide 400 mg magnesium capsule, Take 400 mg by mouth 2 (two) times a day., Disp: , Rfl: pantoprazole (PROTONIX) 40 mg EC tablet, Take 1 tablet (40 mg total) by mouth 2 (two) times a day.,Disp: 90 tablet, Rfl: 1 pen needle, diabetic (BD Xenia 2nd Gen Pen Needle) 32 gauge x 5/32 needle, Inject into the skin 4 (four) times a day., Disp: 200 each, Rfl: 2 pregabalin (LYRICA) 150 mg capsule, TAKE 2 CAPSULES (300 MG TOTAL) BY MOUTH 2 (TWO) TIMES A DAY. MAX DAILY AMOUNT: 600 MG, Disp: 120 capsule, Rfl: 0 Ozempic 1 mg every Saturday Tresiba to 13 units every evening Fiasp 13 units for big carbohydrate meals IF pt uses an insulin pump, does pt have a back-up plan? N/A Occupation / Life schedule (typical daily schedule): Disability SMBG results: Assessment of Current Food Intake Current Appetite: ok Current GI Issues: None Goal Achievement Rating: Diabetes Self-Management Education Basic Information: Barriers: auditory barriers to learning Goal Tracking: Healthy coping: Yes Healthy coping goals: Patient will contact clinic if he is out of CGM sensors due to shipping issues Reducing risk: Yes Reducing risk goals: Patient will carry fast acting carbohydrates with him Support Plan: Patient Self-Management Support Plan: Social Influencers of Health Food Risk: Low Risk (07/22/2024) Food Risk Within the past 12 months we worried whether our food would run out before we got money to buy more.: Never true Within the past 12 months the food we bought just didn???t last and we didn???t have money to get more.: Never true Transportation: Low Risk (07/22/2024) Transportation Has the lack of transportation kept you from meetings, work, or from getting things needed for daily living?: No Has the lack of transportation kept you from medical appointments or from getting medications?: No Housing Instability: Low Risk (07/22/2024) Housing Instability Are you worried that in the next 2 months you may not have stable housing?: No Food Access & Nutrition: Low Risk (07/22/2024) Food Access & Nutrition Do you have access to a variety of food including fruits and vegetables?: Yes Access to Healthcare: Medium Risk (07/22/2024) Access to Healthcare Within the last 3 months, how many times did you visit the emergency department for your medical care?: 4 Health Literacy: Low Risk (07/22/2024) Health Literacy How often do you need to have someone help you when you read instructions, pamphlets, or other written material from your doctor or pharmacy?: Never Caregiver: How often do you need to have someone help you when you read instructions, pamphlets, orother written material from your doctor or pharmacy?: Not on file Financial Risk: Low Risk (07/22/2024) Financial Risk How hard is it for you to pay for the very basics like food, housing, medical care, and air conditioning/heating?: Not very hard Social Isolation: Low Risk (07/22/2024) Social Isolation How often do you feel lonely or isolated from those around you?: Never Dependent Care: Low Risk (07/22/2024) Dependent Care Do you need help finding or paying for care for your loved ones. For example, children's entertainer or elderlycare for an older adult?: No Education: Low Risk (07/22/2024) Education Do you think completing more education or training, like finishing a GED, going to college, or learning a trade, would be helpful for you?: No Employment and Income: Low Risk (07/22/2024) Employment and Income During the last four weeks, have you been actively looking for work?: No Living Situation: Low Risk (07/22/2024) Living Situation What is your living situation?: Not on file Diabetes Asssessment/Evaluation Ratings: Education Documentation List Symptoms of Hyper- and Hypoglycemia, taught by Jose D Hough RN at 12/30/2024 12:16 PM. Learner: Patient Readiness: Acceptance Method: Explanation Response: Verbalizes Understanding Describe the Relationship of Blood Glucose Levels to Long-Term Complications of Diabetes, taught byJose D Hough RN at 12/30/2024 12:16 PM. Learner: Patient Readiness: Acceptance Method: Explanation Response: Verbalizes Understanding Identify Recommended Blood Glucose Targets, taught by Jose D Hough RN at 12/30/2024 12:16 PM. Learner: Patient Readiness: Acceptance Method: Explanation Response: Verbalizes Understanding State Effect of Diabetes Medicines on Diabetes, taught by Jose D Hough RN at 12/30/2024 12:16 PM. Learner: Patient Readiness: Acceptance Method: Explanation Response: Verbalizes Understanding Describe Effect of Type, Amount, and Timing of Food on Blood Glucose, taught by Jose D Hough RN at 12/30/2024 12:16 PM. Learner: Patient Readiness: Acceptance Method: Explanation Response: Verbalizes Understanding Identify Own Type of Diabetes, taught by Jose D Hough RN at 12/30/2024 12:16 PM. Learner: Patient Readiness: Acceptance Method: Explanation Response: Verbalizes Understanding Education Comments No comments found. Diabetes Lifestyle: Food/Diet History: Do you eat regular meals?: regularly eats breakfast, regularly eats dinner Exercise: Sleep: Monitoring: Glucose Monitoring: Records brought to clinic: CGM download Are you using CGM consistently?: always CGM brand: Guanako Ketone Monitoring: Hypoglycemia Monitoring: Hypoglycemia aware?: hypoglycemic awareness Frequency of hypoglycemic episodes (per week): 1 Quality of Life: Treatment: Insulin regimen: injections Injections: Supervision of injections recommended?: No Are injections supervised?: no supervision of injections Bolus timing: before meal Problems with site?: No Rotating injection sites?: Yes Pump: Education: Was the patient educated on the following topics during today's visit?: Insulin dose adjustments: Yes Summary: Patient presents for continued diabetes education. Per patient, it has been 6 weeks since his last transfusion and he is feeling well. Blood glucose numbers are looking good however there were a few episode of low glucose and patient was without sensors for a few days. We reviewed how his insulins worked to lower glucose and discussed reducing Tresiba to reduce risk of hypoglycemia. Topics Discussed: Pathophysiology of DM including distinction between T1DM and T2DM DM Medications- mode of action, onset and duration of action Blood Glucose Monitoring: Targets How to use glucose monitor or automatic glucose sensor system Acute hypo and hyperglycemia signs / symptoms / treatment Chronic diabetes-related complications including micro- and macro-vascular complications Diabetes Standards of Care: Vaccines Annual health checks: clockmaker, dentist, systems trainer Managing chronic disease burden Stress management MEDICATION PLAN: Continue Ozempic 1 mg every Saturday Reduce Tresiba to 12 units every evening Continue Fiasp 13 units for big carbohydrate meals Follow-up plan: 02/08/2025 Joann Strauss PA-C 03/01/2025 Jose D Hough RN, [facility] Referral Expires 11/16/2025 DSME Hours Used: 1.5 DSME Hours Remainin.5 The time spent with the patient was 30 minutes Time in: 1045 Time out: 1115 Jose D Hough RN, [facility] [phone] documented in this encounter Plan of Treatment Upcoming Encounters Date Type Department Care Team (Late st Contact Info) Description 02/08/2025 4:15 PM EDT Office Visit [facility] [address] [place] [phone] Joann Strauss PA [facility] [place] [address] 02/09/2025 10:00 AM EDT [facility] [address] [place] [phone] 02/09/2025 10:30 AM EDT Office Visit [facility] [address] [place] [phone] Fitz Dumont PA [address] [place] [phone] 02/11/2025 11:20 AM EDT Office Visit [facility] [address] [place] [phone] Leonid Watson, [address] [place] [facility] [place] [address] 03/01/2025 2:15 PM EST [facility] [address] [place] [phone] Jose D Hough, TIFFANIE [address] [place] [phone] documented as of this encounter Visit Diagnoses Diagnosis Type 2 diabetes mellitus without complication, with long-term current use of insulin (CMS/HCC V24, CMS/HCC V28)- Primary documented in this encounter Additional Health Concerns Assessment Noted Time PHQ-9 Depression Total Score: 0 12/24/19 10:10 AM EDT documented as of this encounter Care Teams Programming Manager Relationship Specialty Start Date End Date Rios Sousa MD [address] [address] PCP - General Family Medicine 11/24/24 documented as of this encounter
--- NOTE | 2024-12-30 14:09 | HO.NEPHOV_ITS ---
Vital Signs 12/30/24 14:10 Height 6 ft Weight 236 lb BMI 32.0 BP 118/62 Blood Pressure Location Rt brachial Position Sitting Pulse 91 Pulse Source Pulse Oximeter Pulse Oximetry (%) 99 Oxygen Delivery Method Room Air Intake Visit Reasons: 4 Month F/U-Conf Planer Operator Required: No Accompanied by: Self / Same As Patient Allergies rivaroxaban Allergy (Unknown, Verified 12/30/24 14:15) Rash bee venom Allergy (Unknown, Uncoded 09/30/23 16:41) Anaphylaxis Medication List - Last Reconciled 12/30/24 by Isaiah Robert MD allopurinol 100 mg PO DAILY amitriptyline 50 mg PO BEDTIME betamethasone, augmented 0.05% topical bupropion HCl SR 150 mg PO DAILY carvedilol 6.25 mg PO BID colchicine 0.6 mg PO DAILY cyanocobalamin (vitamin B-12) 500 mcg PO DAILY dapagliflozin propanediol (Farxiga) 10 mg PO DAILY folic acid 1 mg PO QAM insulin degludec (Tresiba FlexTouch U-100 insulin) 12 units subcut DAILY ketoconazole 2% topical BID magnesium oxide 400 mg PO TID pantoprazole mg PO pregabalin 200 mg PO BID semaglutide (Ozempic) mg subcut spironolactone 25 mg PO DAILY torsemide 20 mg PO DAILY HPI Comments Details: 52-year-old man with a history of longstanding hypertension and CKD. He is sudden 3 episodes of GI bleed leading to severe anemia. He has undergone blood transfusion. He has had upper and lower endoscopies. No definite source has been identified. Ongoing medical problems include history of deep venous thrombosis of the left femoral vein and pulmonary embolism. He is on Eliquis. History of cervical radiculitis and chronic low back pain Remote history of nephrolithiasis baseline creatinine is around 1.3-1.5 mg/dL History of acute kidney injury in the past with a peak creatinine of 2.9. Since his blood pressure has been low valsartan has been discontinued. 01/29/24 Still has anemia Waiting for Endoscopy Recently admitted with Pneumonia Still smokes 1/2 PPD 05/13/24 Did not undergo Endoscopy yet Currently on Valsartan 320 mg QD 09/02/24 54-year-old male presenting with anemia. He reports a marked drop in hemoglobin levels from 9.1 to 7.5 g/dL over a span of a few days, which has necessitated weekly monitoring. The patient has been on iron supplements for several years, yet a recent bone marrow examination revealed an absence of iron, indicating severe depletion likely related to ongoing blood loss. This issue has been further compounded by the necessity of frequent blood transfusions, the last of which occurred approximately one week ago. The ongoing anemia has prompted multiple investigations including a planned endoscopy and a recent, y [id number]-reviewed bone marrow biopsy. 12/30/24 Doing well S/p Transfusion few weeks ago EGD cancelled REcent Hgb 11.6 Off Valsartan Cr down to 1.3 PFSH Social History Patient Tobacco Use Status: Former Tobacco user Physical Exam Vital Signs: Last Vital Signs Pulse 91 12/30/24 14:10 Pulse Ox 99 12/30/24 14:10 Oxygen Delivery Method Room Air 12/30/24 14:10 BMI result Body Mass Index 32.0 Comfortable Neck supple no JVD. Lungs entry equal no rales. Heart S1-S2 heard no gallop or rub. Abdomen soft nontender. Neuro alert awake oriented. No asterixis. Extremities no edema. Results Reviewed Results Reviewed: 12/28/24 BUN 19 Cr 1.3 K 4.2 HgB 11.2 Assessment & Plan Assessment & Plan (1) CKD (chronic kidney disease): Code(s): N18.9 - Chronic kidney disease, unspecified Category: Medical (2) Anemia: Code(s): D64.9 - Anemia, unspecified Category: Medical Plan . 54-year-old man with a history of longstanding history of diabetes mellitus and hypertension with proteinuria and CKD. He has CKD 3 most likely due to hypertensive diabetic kidney disease. History of acute kidney injury which has resolved. History of proteinuria - Off valsartan due to IVETTE Now on Spironolactone History of significant anemia due to GI bleed and is currently being worked up. History of hyperkalemia He should continue low-potassium diet. REcent K is normal History of hypertension. Blood pressure is better controlled No change in meds Orders: Orders Basic Metabolic Panel 6 Months D64.9 - Anemia, unspecified, N18.9 - Chronic kidney disease, unspecified Complete Blood Count no Diff 6 Months D64.9 - Anemia, unspecified, N18.9 - Chronic kidney disease, unspecified Coding Level of Care Code Est Pt Level 4 (84637) Diagnoses CKD (chronic kidney disease) N18.9 Anemia D64.9
[2024-12-30 14:10] VITALS: BP 118/62; PULSE 91; O2SAT 99; BMI 32.0
--- OUTSIDE RECORDS SUMMARY | 2024-12-30 17:18 | XMS_ITS | Encounter Summary ---
Author Organization [facility] Address [address] [place] [address] Care Team Providers Care Trim Technician Name Role Phone Rios Sousa MD Primary Care Provider [phone] Reason for Visit * Reason Onset Date Comments Dental Letter for Extraction 12/25/2024 Encounter Details Date Type Department Care Team (Late st Contact Info) Description 12/25/2024 Telephone [facility] [place] [address] [place] [address] Debora Greene MA Social History Tobacco Use Types Packs/Day Years [...] your loved ones. For example, children's tutor nursery or elderly care for an older adult? [...] of Assessment Author No 11/24/2024 3:49 PM Yuly Ch RN * Are you blind or do you have serious difficulty seeing, even when wearing glasses? Answer Date of Assessment Author No 11/24/2024 3:49 PM Yuly Ch RN * Do you have serious difficulty [...] documented in this encounter Progress Notes * Debora Ruiz MA - 12/25/2024 9:49 AM EDT Patient left a voicemail stating that he is getting a tooth extraction done on Saturday and that he needs a letter stating that he can get this done. I called the patient to follow up and see if he needed anything from us since the voicemail was from yesterday and it looks like he also spoke to Dr. Bradley's office regarding this. The patient states he will call his Dentist's office to make sure they have everything they need but will give us a call if he is missing anything. documented in this encounter Plan of Treatment Upcoming Encounters Date Type Department Care Team (Late st Contact Info) Description 02/08/2025 4:15 PM EDT Office Visit [facility] [place] [address] [place] [address] [place] [phone] Joann Strauss PA [address] [place] [address] 02/09/2025 10:00 AM EDT [facility] [address] [place] [phone] 02/09/2025 10:30 AM EDT Office Visit [facility] [place] [address] [place] [phone] Fitz Dumont PA [address] [place] [address] 02/11/2025 11:20 AM EDT Office Visit [facility] [address] [place] [phone] Leonid Watson, [address] [place] [address] [place] [phone] 03/01/2025 2:15 PM [facility] Clinical Support [facility] [address] [phone] Jose D Hough, RN [address] [place] [address] documented as of this encounter Visit Diagnoses Not on filedocumented in this encounter Additional Health Concerns Assessment Noted Time PHQ-9 Depression Total Score: 0 12/24/19 10:10 AM EDT documented as of this encounter Care Teams Trim Technician Relationship Specialty Start Date End Date Rios Sousa MD 15 [facility] [address] [place] [address] PCP - General Family Medicine 11/24/24 documented as of this encounter
--- OUTSIDE RECORDS SUMMARY | 2024-12-30 17:18 | XMS_ITS | Encounter Summary ---
Author Organization [facility] Address [address] [place] [address] Care Team Providers Care Cargo Trimmer Name Role Phone Rios Sousa MD Primary Care Provider [phone] Encounter Details Date Type Department Care Team (Late st Contact Info) Description 09/07/2024 Lab Requisition [facility] Main Lab [address] [place] [address] Isaiah Robert MD [address] [place] [address] [address] [place] [address] Chronic kidney disease, unspecified Social History Tobacco Use Types Packs/Day Years [...] your loved ones. For example, child care education coordinator or elderly care for an older adult? [...] Safety Answer Date Record ed Physical Abuse 09/07/2024 Verbal Abuse 09/07/2024 Sex and Gender Information Value Date Recorded [...] PM Debora Hedrick documented in this encounter Plan of Treatment Upcoming Encounters Date Type Department Care Team (Late st Contact Info) Description 02/08/2025 4:15 PM EDT Office Visit [facility] [address] [place] [address] Joann Strauss PA [address] [place] [address] 02/09/2025 10:00 AM EDT [facility] [address] [place] [phone] 02/09/2025 10:30 AM EDT Office Visit [facility] [address] [place] [address] Fitz Dumont PA [address] [place] [address] 02/11/2025 11:20 AM EDT [facility] [address] [place] [phone] Leonid Watson, [address] [place] [address] [place] [address] 03/01/2025 2:15 PM EST [facility] [address] [place] [address] Jose D Hough, RN [address] [place], [place] [id number] documented as of this encounter Procedures Procedure Name Priority Date/Time Associated Diagnosis Comments BASIC METABOLIC PANEL Routine 09/07/2024 9:21 AM EDT Chronic kidney disease, unspecified documented in this encounter Results * (ABNORMAL) Basic metabolic panel (09/07/2024 9:21 AM EDT) Sodium 134(L) 135 - 145 mmol/L LAB CHEMISTRY METHOD 09/07/2024 4:17 PM EDT [facility] Potassium 4.2 3.5 - 5.1 mmol/L LAB CHEMISTRY METHOD 09/07/2024 4:17 PM EDT [facility] Chloride 102 98 - 107 mmol/L LAB CHEMISTRY METHOD 09/07/2024 4:17 PM T [facility] CO2 24 24 - 32 mmol/L LAB CHEMISTRY METHOD 09/07/2024 4:17 PM T [facility] Anion Gap 8 5 - 14 LAB CHEMISTRY METHOD 09/07/2024 4:17 PM T [facility] Glucose 314(H) 70 - 199 mg/dL LAB CHEMISTRY METHOD 09/07/2024 4:17 PM T [facility] BUN 63(H) 9 - 20 mg/dL LAB CHEMISTRY METHOD 09/07/2024 4:17 PM T [facility] Creatinine 1.90(H) 0.70 - 1.30 mg/dL LAB CHEMISTRY METHOD 09/07/2024 4:17 PM EDT [facility] eGFR 41(L) >=60 mL/min/1. 73m2 LAB CHEMISTRY METHOD 09/07/2024 4:17 PM EDT [facility] Comment:Calculation based on the Chronic Kidney Disease Epidemiology Collaboration (CKD-EPI) equation refit without adjustment for race. BUN/Creatinine Ratio 33.2(H) 12.0 - 20.0 LAB CHEMISTRY METHOD 09/07/2024 4:17 PM EDT [facility] Calcium 8.1(L) 8.4 - 10.2 mg/dL LAB CHEMISTRY METHOD 09/07/2024 4:17 PM EDT [facility] Blood Venous blood specimen / Unknown 09/07/2024 9:21 AM EDT 09/07/2024 3:53 PM EDT Isaiah Robert MD LAB BLOOD ORDERABL ES Final Result [facility] [address] [place] [address], documented in this encounter Visit Diagnoses Diagnosis Chronic kidney disease, unspecified documented in this encounter Additional Health Concerns Assessment Noted Time PHQ-9 Depression Total Score: 0 08/14/19 3:29 PM EDT documented as of this encounter Care Teams Cargo Trimmer Relationship Specialty Start Date End Date Rios Sousa MD [address] [place] [address] PCP - General Family Medicine 11/24/24 documented as of this encounter
--- OUTSIDE RECORDS SUMMARY | 2024-12-30 17:18 | XMS_ITS | Clinical Summary ---
Author Organization [facility] Address [address] [place] [address] Care Team Providers Care Virtualization Engineer Name Role Phone Rios Sousa MD [...] Overview: Added automatically from request for surgery [id number] Personal history of DVT (deep vein thrombosis) [...] often do you attend chur ch or baptism services? 1 to 4 times per year 09/18/2023 Do you belong to any clubs o r organizations such as baptist groups, unions, fraternal or athletic groups, or [...] place to sleep or slept in a custodial (including now)? No 09/18/2023 Sex and Gender [...] 103 02/19/2024 9:47 AM EDT Temperature 36.4 C (97.6 F) 02/05/2024 2:53 PM EDT Respiratory Rate 18 02/05/2024 2:53 PM EDT [...] 06/23/2021, 11/27/2020 (Pt Reported - Need documentation) Hemoglobin A1C Due 06/05/2024 12/04/2023, 0 08/23/2023, 06/26/2023, Additional history exists Diabetes: Microalbumin Test 10/07/2024 10/08/2023, 05/28/2023, 02/21/2022, Additional history exists Depression Screening 10/20/2024 10/21/2023, 10/21/2023, 10/21/2023, Additional history exists Preventative Health Evaluation 10/20/2024 10/21/2023, 10/21/2023, 10/18/2022, Additional history exists Tobacco Cessation Counseling 10/20/2024 10/21/2023, 05/14/2023, 07/14/2020 COVID-19 Vaccine ( season) 2024 12/21/2022, 03/03/2022, 03/03/2022, Additional history exists Influenza Vaccine (#1) 2024 , 01/13/2021, 01/25/2020, Additional history exists BMI Counseling 02/18/2025 02/19/2024, 12/21, 12/31/2023, Additional [...] and methods of prevention Chronic Care Management Brenda Mclaughlin RN Note: Patient will adhere to low [...] diet, monitor BP and notify PCP and Senior Water Resources Engineer for BP >130/80. Patient will identify signs and symptoms of diabetes exacerbation and methods of prevention Chronic Care Management No Brenda Cherry, TIFFANIE Note: Patient will obtain glucometer, monitor blood sugar, target fasting blood sugar 80-130, target Hemoglobin A1C <7 and adhere to low carbohydrate diet. Patient will understand worsening signs and symptoms of anemia to report Chronic Care Management Brenda Mclaughlin, TIFFANIE Note: Patient will continue Iron Infusion treatment [...] of falls. Medical Devices Implanted Type Area Zipper Cutter Device Identifier Shelf Expiration Date Model / Serial / Lot Sponge Surgiflo 8ml Hemostatic Matrix Absorbable Latex Free - [id number] - [id number] Implanted:Qty : 1 on 07/01/2017 by [place]anchito Pulido [place] [facility] Hemostatic Agent Posterior : Spine Lumbar [facility] 11/19/2018 2991 / / [id number] Surgiflo Hemostatic Matrix [facility] [id number] - [id number] Implanted:Qty : 1 on 03/26/2022 by Panchito Pulido DO [place] [facility] Hemostatic Agent Left: Spine Lumbar [employer] 11/20/2023 2991 / / [id number] Vivigen Cellular Bone Matrix 10cc - [id number] - [id number] Implanted:Qty : 1 on 07/01/2017 by Panchito Pulido DO [place] [facility] Posterior : Spine Lumbar [employer] 11/25/2017 BL-1600-0 03 / [id number] / Graft Bone Readigraft Preservon Cancellous 1-8 Mm 15 C[facility] - [id number] - [id number] Implanted:Qty : 1 on 01/07/2020 by Panchito Pulido DO [place] [facility] Spine Lumbar [employer] 04/03/2024 PCAN15 / [id number] / Graft Pliafx 10cc Freeze Dry Bone Fibers Bone - [id number] - [id number] Implanted:Qty : 1 on 01/07/2020 by Panchito Pulido DO [place] [facility] Spine Lumbar [employer] 08/17/2023 BL-1800-1 0 / [id number] / Shell Flarehawk 9 Short 25mm - [id number] - [id number] Implanted:Qty : 1 on 01/07/2020 by Panchito Pulido DO [place] [facility] Spine Lumbar [employer] [id number] / / Baljit 13mm Or [id number] Mm 6 Degree Version C - [id number] - [id number] Implanted:Qty : 1 on 01/07/2020 by Panchito Pulido DO at [facility] Spine Lumbar [employer] [id number] / / Cap Matrix Flat 5.5mm Step Square Thread Stardrive Cocr - 256334 - [id number] Implanted:Qty : 4 on 01/07/2020 by Panchito Pulido DO [place] [facility] Posterior : Spine Lumbar [employer] .632.09 9 / / Head Matrix Polyaxial Top Loading Titanium Screw Spine - [id number] - [id number] Implanted:Qty : 4 on 01/07/2020 by Panchito Pulido DO [place] [facility] Posterior : Spine Lumbar [employer] 04.632.00 1 / / Screw Matrix T25 Low Profile 45mm 6mm 2 Core 2 Lead - [id number] - [id number] Implanted:Qty : 2 on 01/07/2020 by Panchito Pulido DO [place] [facility] Posterior : Spine Lumbar [employer] 04.639.64 5 / / Screw Matrix T25 Low Profile 50mm 7mm 2 Core 2 Lead - 240255 - [id number] Implanted:Qty : 1 on 01/07/2020 by Panchito Pulido DO at [facility] Posterior : Spine Lumbar [employer] 04.639.75 0 / / Screw Matrix 50mm 8mm Thread Titanium Bone Spine - [id number] - [id number] Implanted:Qty : 1 on 01/07/2020 by Panchito Pulido DO at [facility] Posterior : Spine Lumbar [employer] 04.639.85 0 / / Michael 45mm 5.5mm Curved Titanium Exfix Nonsterile - [id number] - [id number] Implanted:Qty : 1 on 01/07/2020 by Panchito Pulido DO at [facility] Med Spine Lumbar [employer] 04.636.04 5 / / Michael Matrix 50mm 5.5mm Curved Titanium Exfix Pedcl Posterior - [id number] - [id number] Implanted:Qty : 1 on 01/07/2020 by Panchito Pulido DO at [facility] Med Spine Lumbar [employer] 04.636.05 0 / / Kit Infuse Medium 2x1in 20ga 5.6ml Vial Absorbable Collagen - 339006 - [id number] Implanted:Qty : 1 on 01/07/2020 by Panchito Pulido DO at [facility] Spine Lumbar [employer] SOFAM[employer] DANEK 12/20/2021 [id number] / / [id number] S Port Pwr Mri Isp 8f Micintrdcr Crba-Sissy [id number] - [id number] Implanted:Qty : 1 on 11/15/2023 by Lane Bates PA-C at [facility] Med CR [facility] [employer] [facility] 05/22/2025 [id number] / / [id number] Explanted Type Area Zipper Cutter Device Identifier Shelf Expiration Date Model / Serial / Lot Cap Revolve Locking Lumbar Spine - [id number] - [id number] Explanted:Qty: 1 on 07/01/2017 [place] [facility] Posterior: Spine Lumbar [employer] 185.000 / / Michael [place] 50mm 5.5mm Curved Prebent Auxillary Spinal - [id number] - [id number] Explanted:Qty: 2 on 07/01/2017 at [facility] Posterior: Spine Lumbar [employer] 132.150 / / Screw [place] 50mm 6.5mm Polyaxial Titanium Bone Pedcl Spinal - 079600 - [id number] Implanted:Qty: 2 on 07/01/2017 by Panchito Pulido DO at [facility] Med Explanted:Qty: 2 on 01/07/2020 by Panchito Pulido DO at [facility] Posterior: Spine Lumbar [employer] 124.466 / / Caps Locking Reverse - [id number] - [id number] Implanted:Qty: 3 on 07/01/2017 by Panchito Pulido DO at [facility] Explanted:Qty: 3 on 01/07/2020 by Panchito Pulido DO at [facility] Posterior: Spine Lumbar [employer] 124.000 / / Michael [place] 65mm 5.5mm Curved Titanium Spinal Pedcl - [id number] - [id number] Implanted:Qty: 2 on 07/01/2017 by Panchito Pulido DO at [facility] Explanted:Qty: 2 on 01/07/2020 by Panchito Pulido DO at [facility] Posterior: Spine Lumbar [employer] 124.665 / / Advance Directives For more information, please contact: [phone] Documents on File Type Date Recorded Patient Music Adapter Expl anation Advance Directive and Living Will [...] way: discussion with patient . Care Teams Virtualization Engineer Relationship Specialty Start Date End Date Rios Sousa MD PCP - General Family Medicine 03/03/15
--- OUTSIDE RECORDS SUMMARY | 2024-12-30 17:19 | XMS_ITS ---
[facility] Care Plan Created on: December 26, 2024 Jagdish Amato : 1970 Sex: Male Author Organization [employer]. Address [address] [place] [address] Phone Health Concerns Health Status CKD 3 Health Concerns None
--- OUTSIDE RECORDS SUMMARY | 2024-12-30 17:19 | XMS_ITS | Encounter Summary ---
Author Organization [facility] Address [address] [place] [address] Phone Care Team Providers Care Shell Grader Name Role Phone Rios Sousa MD Primary Care Provider [phone] Encounter Details Date Type Department Care Team (Late st Contact Info) Description 08/11/2020 Orders Only [facility] [address] [place] [address] Provider, MD Arley Social History Tobacco Use Types Packs/Day Years [...] encounter Results * EXT RESULT ENTRY (08/11/2020) us Historical Provider LAB BLOOD ORDERABLES Jesenia l Result documented in this encounter Visit Diagnoses Not on filedocumented in this encounter Care Teams Shell Grader Relationship Specialty Start Date End Date Rios Sousa MD PCP - General 05/02/20 documented as of this encounter
--- OUTSIDE RECORDS SUMMARY | 2024-12-30 17:19 | XMS_ITS | Encounter Summary ---
Author Organization [facility] Address [address] [place] [address] Care Team Providers Care Shipyard Helper Name Role Phone Rios Sousa MD Primary Care Provider [phone] Rios Sousa MD Primary Care Provider [phone] Marcia Kulkarni RN Unavailable [phone] Encounter Details Date Type Department Care Team (Late st Contact Info) Description 1970 Scanned Document [address] [place] [address] Provider, Generic Social History Tobacco Use [...] documented as of this encounter Care Teams Shipyard Helper Relationship Specialty Start Date End Date Rios Sousa MD PCP - General Internal Medicine 09/03/18 Rios Sousa MD PCP - General 09/02/18 Marcia Kulkarni, RN [address] [place] [address] Registered Nurse 05/28/23 documented as of this encounter
--- OUTSIDE RECORDS SUMMARY | 2024-12-30 17:19 | XMS_ITS | Clinical Summary ---
Author Organization [address] [address] Care Team Providers Care Metal Products Viewer Name Role Phone Unavailable Primary Care Provider [...] cancer screening, Colonoscopy 2013 Diabetes screening 2013 Influenza vaccine 11/20/2024 02/12/2023, , 01/25/2020, Additional history exists Covid-19 vaccine series (2024- season) 2024 12/21/2022, 03/03/2022, 03/03/2022, Additional history exists Tetanus adult (Td q 10,TDAP once) 10/20/2033 10/21/2023 RSV Immunization (1 - 1-dose 75+ series) 2043 Shingles vaccine (Shingrix) Completed 03/02/2020, 0 12/22/2019 Pneumococcal Vaccine (2 - 49 years) Discontinued 10/21/2023, 02/25/2019 Pneumococcal Vaccine (50+ years) Completed 10/21/2023, 02/25/2019 Meningococcal B Vaccine Aged Out No l onger eligible based on patient's age to complete this topic Meningococcal Vaccine Aged Out No daria nancy eligible based on patient's age to complete this topic
--- OUTSIDE RECORDS SUMMARY | 2024-12-30 17:19 | XMS_ITS | Clinical Summary ---
Author Organization [facility] Address [address] [place] [address] Care Team Providers Care Carpenter Assistant Name Role Phone Rios Sousa MD Primary Care Provider [phone] Marcia Kulkarni RN Unavailable [phone] Allergies Active Allergy Reactions Criticality Noted Date [...] drink = 0.6 oz pur e alcohol) [facility] Utilities Answer Date Recorded In the past 12 months has e electric, gas, oil, or water [employer] threatened to shut off services in your [...] than three times a week 04/27/2023 Attends [employer] Not on file 04/27 Active Member [...] place to sleep or slept in a [place] facility (including now)? No 04/27/2023 Sex and Gender [...] 97 08/29/2023 10:56 AM EDT Temperature 36.6 C (97.8 F) 05/02/2023 1:33 PM EST Respiratory Rate 20 05/02/2023 1:33 PM EST [...] Zoster (Shingles) Vaccine (1 of 2) 2018 Hemoglobin A1C 02/23/2024 08/23/2023, 03/0 09/2023, 05/28/2023, Additional history exists Creatinine with GFR 05/02/2024 05/02/2023, 05/01/2023, 04/30/2023, Additional history exists Microalbumin/Creatinine Rati o Urine 05/28/2024 05/28/2023, 02/21/2022, 12/19/2021, Additional history exists Influenza Vaccine 11/20/2024 02/12/2023, , 01/25/2020, Additional history exists COVID-19 Vaccine (2024-2 6 season) 2024 12/21/2022, 03/03/2022, 10/24/2021, Additional history exists Procedures Procedure Name Priority Date/Time Associated Diagnosis Comments COMPREHENSIVE METABOLIC PANEL Routine 05/02/2023 6:53 AM EST HEMOGLOBIN A1C WITH ESTIMATED AVERAGE GLUCOSE STAT 04/27/2023 6:31 AM EST from Last 3 Months or Most Recently Relevant to Health Maintenance Results * (ABNORMAL) Comprehensive Metabolic Panel (05/02/2023 6:53 AM EST) Glucose 120(H) 65 - 99 mg/dL 05/02/2023 8:22 AM EST [facility] Comment:Fasting: <100 mg/dL, Non-Fasting: <200 mg/dL (ADA 2004) Blood Urea Nitrogen (BUN) 30(H) 8 - 21 mg/dL 05/02/2023 8:22 AM [facility] Creatinine 1.5(H) 0.5 - 1.3 mg/dL 05/02/2023 8:22 AM [facility] eGFR 55(L) >59 05/02/2023 8:22 AM [facility] Comment:CKD-EPI (2020) in mL /min/1.73 sq meters. Sodium 135(L) 136 - 145 mmol/L 05/02/2023 8:22 AM [facility] Potassium 4.3 3.4 - 5.3 mmol/L 05/02/2023 8:22 AM [facility] Chloride 102 98 - 107 mmol/L 05/02/2023 8:22 AM [facility] CO2 23 22 - 33 mmol/L 05/02/2023 8:22 AM [facility] Calcium 9.0 8.7 - 10.5 mg/dL 05/02/2023 8:22 AM [facility] Alkaline Phosphatase 274(H) 45 - 128 U/L 05/02/2023 8:22 AM [facility] Aspartate Aminotrans (AST) 41 10 - 55 U/L 05/02/2023 8:22 AM [facility] Alanine Aminotrans (ALT) 18 10 - 55 U/L 05/02/2023 8:22 AM [facility] Bilirubin, Total 2.2(H) 0.2 - 1.0 mg/dL 05/02/2023 8:22 AM [facility] Protein, Total 6.1(L) 6.3 - 8.3 g/dL 05/02/2023 8:22 AM [facility] Albumin 3.4(L) 3.5 - 5.0 g/dL 05/02/2023 8:22 AM [facility] BUN/Creatinine Ratio 20 10.0 - 25.0 Ratio 05/02/2023 8:22 AM [facility] Globulin 2.7 1.5 - 3.9 g/dL 05/02/2023 8:22 AM [facility] Albumin/Globulin Ratio 1.3 1.0 - 3.0 Ratio 05/02/2023 8:22 AM [facility] Anion Gap 10 7 - 17 05/02/2023 8:22 AM [facility] Blood specimen (specimen) (Plasma/Serum) 05/02/2023 6:53 AM EST 05/02/2023 7:43 AM EST Kulwant Guerrero MD LAB BLOOD ORDERABLES Final R esult Performing Organization Address [facility] [place] [address], [place] [address] * Hemoglobin A1c with Estimated Average Glucose (04/27/2023 6:31 AM EST) Hemoglobin A1C 5.1 <5.7 % 04/27/2023 7:38 AM [facility] Comment: A1c% Interpretation 5.7 - 6.0 Increase risk of diabetes 6.1 - 6.4 Higher risk of diabetes > or = 6.5 Consistent with diabetes Diabetes Care, 33(Supp 1):S1-S61, 2010 Estimated Average Glucose 100 mg/dL 04/27/2023 7:38 AM [facility] Blood specimen (specimen) Blood specimen / Unknown 04/27/2023 6:31 AM EST 04/27/2023 7:08 AM EST Qasim Cohen MD LAB BLOOD ORDERABLES Final Resu lt Performing Organization Address [facility] [place] [address], [place] [address] from Last 3 Months or Most Recently Relevant to Health Maintenance Insurance [facility] Member Subscriber Plan / Payer ( fective 2018-Present) Name:Jagdish Amato Relation to Subscriber:Self Name:Jagdish Amato Payer ID:[id number] Group ID:Not on file Type:Not on file Address: [address] [address] [employer] MEDICARE - [id number] Advance Directives * Full Code (Latest Code Status on File) Date Activated Date Inactivated Comments 04/27/2023 1:23 AM Care Teams Carpenter Assistant Relationship Specialty Start Date End Date Rios Sousa MD PCP - General Internal Medicine 09/03/18 Marcia Kulkarni, RN [address] [place] [address] Registered Nurse 05/28/23
--- OUTSIDE RECORDS SUMMARY | 2024-12-30 17:19 | XMS_ITS | Clinical Summary ---
Author Organization [facility] [address] Address [address] [place] [address] Phone Care Team Providers Care An Employee Sponsor Or Advocate And Name Role Phone Rios Sousa MD Primary Care Provider [phone] Allergies Active Allergy Reactions Criticality Noted Date Comments Bee Venom Protein (Honey Bee) Anaphylaxis High 02/27/2016 Rivaroxaban Hives,Other Low 09/20/2016 Other reaction(s): Not available Medications magnesium oxide 400 mg magnesium capsule Take 400 mg by mouth 2 (two) times a day. 024 Active buPROPion SR (WELLBUTRIN SR) 150 mg 12 hr tabletIndicati ons:Smoking TAKE ONE TABLET (150MG TOTAL) BY MOUTH ONCE DAILY DO NOT CRUSH, CHEW, OR SPIT. 30 tablet 11 Active Additional Information Patient not taking.Reported on 12/23/2024 amitriptyline (ELAVIL) 50 mg tablet TAKE ONE TABLET (50 MG TOTAL) BY MOUTH AT BEDTIME 30 tablet 11 024 Active pantoprazole (PROTONIX) 40 mg EC tabletIndicati ons:Gastroesop hageal reflux disease, unspecified whether esophagitis present Take 1 tablet (40 mg total) by mouth 2 (two) times a day. 90 tablet 1 025 Active pen needle, diabetic (BD Xenia 2nd Gen Pen Needle) 32 gauge x 5/32 needleIndicati ons:Type 2 diabetes mellitus without complication, with long-term current use of insulin (CMS/HCC V24, CMS/HCC V28) Inject into the skin 4 (four) times a day. 200 each 2 04/09/2 025 Active cyanocobalamin (VITAMIN B-12) 500 mcg tabletIndicati ons:Anemia, unspecified type TAKE ONE TABLET (500MCG TOTAL) BY MOUTH ONCE DAILY 90 tablet 1 025 Active insulin lispro (HumaLOG KwikPen) 100 unit/mL injection penIndications :Type 2 diabetes mellitus with hyperglycemia, with long-term current use of insulin ([facility] V24, [facility] V28) Inject 13-15 Units under the skin 3 (three) times a day before meals. 45 mL 025 Active insulin glargine (LANTUS SoloStar) 100 unit/mL (3 mL) injection pen Inject 15 Units under the skin at bedtime. 15 mL 025 Active Additional Information Patient taking differently: 13 Unitssubcutaneous Nightly, Reported on 11/24/2024 ketoconazole (NIZORAL) 2 % shampoo APPLY TOPICALLY TWICE DAILY APPLY TO DAMP SKIN, LATHER, LEAVE ON FOR 5 MINUTES AND RINSE 120 mL 11 025 Active colchicine (COLCRYS) 0.6 mg tabletIndicati ons:Hyperurice too TAKE ONE TABLET (0.6MG TOTAL) BY MOUTH ONCE DAILY 30 tablet 2 025 Active glucagon (Gvoke HypoPen 2-Pack) 1 mg/0.2 mL auto-injectorI ndications:Typ e 2 diabetes mellitus with hyperglycemia, with long-term current use of insulin ([facility] V24, [facility] V28) Inject 1 mg under the skin if needed (In case of severe low sugars. If used, call 911). 0.4 mL 1 025 Active folic acid (FOLVITE) 1 mg tablet Take 1 tablet (1 mg total) by mouth 1 (one) time each day. 30 each 11 025 2025 Active iron,carbonyl- vitamin C 65 mg iron- 125 mg tablet,delayed release (DR/EC) Take 1 tablet by mouth every 60 (sixty) hours. 60 tablet 1 025 Active allopurinoL (ZYLOPRIM) 300 mg tabletIndicati ons:Chronic gout without tophus, unspecified cause, unspecified site Take 1 tablet (300 mg total) by mouth 1 (one) time each day. 30 each 025 2025 Active pregabalin (LYRICA) 150 mg capsuleIndicat ions:Chronic low back pain, unspecified back pain laterality, unspecified whether sciatica present TAKE 2 CAPSULES (300 MG TOTAL) BY MOUTH 2 (TWO) TIMES A DAY. MAX DAILY AMOUNT: 600 MG 120 capsule 025 2024 Active blood-glucose sensor (FreeStyle Guanako 3 Plus Sensor) deviceIndicati ons:Type 2 diabetes mellitus with hyperglycemia, with long-term current use of insulin ([facility] V24, [facility] V28) 1 EA continuously. Change sensor every 15 days. Box = Kit = EA. 6 each 4 025 Active glucose blood (FreeStyle Precision Jerome Strips) test stripIndicatio ns:Type 2 diabetes mellitus with hyperglycemia, with long-term current use of insulin ([facility] V24, [facility] V28) Use to test glucose 4 times daily 200 each 025 2025 Active carvediloL (COREG) 12.5 mg tabletIndicati ons:Primary hypertension TAKE 1 TABLET BY MOUTH TWICE A DAY WITH FOOD 180 tablet 1 025 Active carvediloL (Coreg) 12.5 mg tabletIndicati ons:Primary hypertension Take 1 tablet (12.5 mg total) by mouth 2 (two) times a day with meals. 180 each 1 024 2024 Discontinued allopurinoL (ZYLOPRIM) 300 mg tabletIndicati ons:Chronic gout without tophus, unspecified cause, unspecified site Take 1 tablet (300 mg total) by mouth 1 (one) time each day. 025 2024 Discontinued( Reorder) pregabalin (LYRICA) 150 mg capsuleIndicat ions:Chronic low back pain, unspecified back pain laterality, unspecified whether sciatica present TAKE 2 CAPSULES (300 MG TOTAL) BY MOUTH 2 (TWO) TIMES A DAY. MAX DAILY AMOUNT: 600 MG 120 capsule 025 2024 Discontinued blood-glucose sensor (FreeStyle Guanako 3 Plus Sensor) deviceIndicati ons:Type 2 diabetes mellitus with hyperglycemia, with long-term current use of insulin ([facility] V24, [facility] V28) 1 EA continuously. Change sensor every 15 days. Box = Kit = EA. 6 each 4 025 2024 Discontinued( Reorder) Active Problems Problem Noted Date Diagnosed Date Hyponatremia 11/24/2024 Assessment & Plan (11/26/2024 1:59 PM EDT): Hyponatremia Assessment & Plan (11/25/2024 3:08 PM EDT): Hyponatremia Dyspnea 11/01/2024 CHF exacerbation ([facility] V24, [facility] V28) 10/20 MGUS (monoclonal gammopathy of unknown significa nce) 10/05/2024 Pancytopenia ([facility] V24, [facility] V28) 09/08/19 25 Decompensation of cirrhosis of liver ([facility] V24, [facility] V28) 08/19/2024 Gastro-esophageal reflux disease with esophagiti s 08/19/2024 Anemia, unspecified type 08/07/2024 Closed fracture of distal la teral malleolus of ankle, left, with routine healing, subsequent encounter 07/08/2024 Difficulty walking due to ankle and foot joint 0 07/08/2024 SOB (shortness of breath) 05/17/2024 Closed fracture of right ankle 05/17/2024 Gout 12/25/2023 Type 2 diabetes mellitus, wi th long-term current use of insulin ([facility] V24, [facility] V28) 12/25/2023 Acute CHF (congestive heart failure) ([facility] V24, [facility] V28) 12/25/2023 Cellulitis 12/25/2023 Acute on chronic anemia 09/13/2023 Normocytic anemia 08/29/2023 Symptomatic anemia 08/22/2023 Anemia 08/22/2023 Acute blood loss anemia 06/25/2023 Dehydration 06/25/2023 Umbilical hernia 06/03/2023 Rectus diastasis 06/03/2023 Acute anemia 11/20/2022 Heme positive stool 11/20/2022 Overview (12/25/2023): Added automatically from request for surgery [id number] GI bleed 11/20/2022 Mixed hyperlipidemia 12/28/2021 Mixed hyperlipidemia 12/28/2021 Overview (09/07/2024): Mixed hyperlipidemia Hypercalcemia 09/06/2021 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 12/2021 Boutonniere deformity of finger, left 05/31/2021 Hyperglycemia 05/26/2021 Hyperosmolar hyperglycemic s shannon (HHS) ([facility] V24, [facility] V28) 05/25/2021 Diabetic hyperosmolar non-ke totic state ([facility] V24, [facility] V28) 05/25/2021 Insufficient sleep syndrome 08/10/2020 Stage 3 chronic kidney disease ([facility] V24, [facility] V28) 07/19/2020 Renal stone 07/19/2020 Iron deficiency anemia 07/19/2020 Stage 3 chronic kidney disease ([facility] V24, [facility] V28) 07/19/2020 Overview (09/07/2024): Stage 3 chronic kidney disease Synovial cyst of lumbar spine 07/12/2020 Obstructive sleep apnea 05/10/2020 DVT (deep venous thrombosis) ([facility] V24, [facility] V28) 03/29/2020 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 Snoring [...] Supratherapeutic INR 05/04/2016 IVETTE (acute kidney injury) ([facility] V24) 05/04/19 17 Acute kidney injury ([facility] V24) 05/04/2016 Chronic bilateral low back pain with sciatica Degeneration of lumbar or lumbosacral interverte bral disc 03/13/2016 Hypertensive disorder 02/27/2016 Chronic low back pain 02/27/2016 Acute deep vein thrombosis ( DVT) of femoral vein of left lower extremity ([facility] V24, [facility] V28) 02/27/2016 Acute deep vein thrombosis ( DVT) of femoral vein of left lower extremity ([facility] V24, [facility] V28) 02/27/2016 Overview (09/07/2024): Acute deep vein thrombosis (DVT) of femoral vein of left lower extremity Right hand weakness 10/11/2015 Numbness and tingling of right upper extremity 0 10/11/2015 Myalgia 10/08/2015 Shoulder impingement 10/04/2015 Neck pain 10/04/2015 Radiculitis of right cervical region 10/04/2015 Cervical radiculitis 10/04/2015 Cervical radiculitis 10/04/2015 Overview (09/07/2024): Cervical radiculitis Radiculitis of right cervical region Lumbar foraminal stenosis 04/01/2015 DDD (degenerative disc disease), lumbosacral 02/2015 Lumbar radiculopathy 03/11/2015 Encounters Date Type Department Care Team Description 12/30/2024 10:45 AM EDT [facility] [address] [place] [address] Jose D Hough, RN Type 2 diabetes mellitus without complication, with long-term current use of insulin ([facility] V24, [facility] V28) (Primary Dx) 12/28/2024 12:26 PM EDT Hospital Encounter [facility] [address] [place] [phone] Iron deficiency anemia due to chronic blood loss; Hyponatremia 12/25/2024 Telephone [facility] [address] [place] [address] Debora Greene MA 12/24/2024 Telephone Hematology and Oncology - [address] [phone] Dhaval Bradley MD 12/23/2024 9:44 AM EDT - 12/23/2024 11:59 PM EDT Hospital Encounter [facility] [address] [place] [phone] Iron deficiency anemia due to chronic blood loss; SOB (shortness of breath); Acute on chronic anemia; Alcoholic cirrhosis of liver without ascites (CMS/HCC V24, CMS/HCC V28) Discharge Disposition: Home or Self Care 12/23/2024 [facility]phone [facility] [address] [place] [phone] Olga Braden MA 12/15/2024 9:16 AM EDT - 12/15/2024 11:59 PM EDT Hospital Encounter [facility] [address] [place] [phone] Iron deficiency anemia, unspecified iron deficiency anemia type (Primary Dx); Iron deficiency anemia due to chronic blood loss Discharge Disposition: Home or Self Care 12/10/2024 9:17 AM EDT - 12/10/2024 11:59 PM EDT Hospital Encounter [facility] [address] [place] [phone] Iron deficiency anemia due to chronic blood loss (Primary Dx) Discharge Disposition: Home or Self Care 12/08/2024 9:24 AM EDT - 12/08/2024 11:59 PM EDT Hospital Encounter [facility] [address] [place] [phone] Iron deficiency anemia due to chronic blood loss (Primary Dx); Alcoholic cirrhosis of liver without ascites (CMS/HCC V24, [facility]/HCC V28); Acute on chronic anemia; Hyponatremia Discharge Disposition: Home or Self Care 12/01/2024 1:44 PM EDT - 12/01/2024 11:59 PM EDT Hospital Encounter [facility] [address] [place] [phone] Iron deficiency anemia due to chronic blood loss; Hyponatremia Discharge Disposition: Home or Self Care 11/30/2024 Telephone Hematology and Oncology [facility] [address] [place] [address] Fitz Dumont PA 11/24/2024 11:12 AM EDT - 11/28/2024 2:39 PM EDT Hospital Encounter [facility] Obs Unit 6-[address] [place] [address] Portillo Altman MD Singh, Gagan D, MD Kazi, Ahmed, MD Fusco, Joseph D, Eugenia Sotomayor MD Hyponatremia (Primary Dx) Discharge Disposition: Home or Self Care 11/24/2024 10:00 AM EDT Office Visit [facility] [address] [place] [phone] Fitz Dumont PA Iron deficiency anemia due to chronic blood loss (Primary Dx); Hypovitaminosis D; Alcoholic cirrhosis of liver without ascites ([facility]/HCC V24, [facility]/HCC V28); Acute on chronic anemia; Hyponatremia 11/24/2024 Telephone [facility] [address] [place] [address] Jong Ny 11/23/2024 9:42 AM EDT - 11/23/2024 11:59 PM EDT Hospital Encounter [facility] [address] [place] [address] Iron deficiency anemia due to chronic blood loss Discharge Disposition: Home or Self Care 11/23/2024 Telephone [facility] [address] [place] [phone] Aminta Queen RN 11/19/2024 10:45 AM EDT [facility] [address] [place] [address] Joann Strauss PA Type 2 diabetes mellitus with hyperglycemia, with long-term current use of insulin ([facility] V24, [facility] V28) (Primary Dx) 11/19/2024 8:15 AM EDT [facility] [address] [place] [phone] Joann Strauss PA Type 2 diabetes mellitus with hyperglycemia, with long-term current use of insulin ([facility] V24, [facility] V28) (Primary Dx); Hypertension, unspecified type 11/19/2024 Telephone [facility] [address] [address] Debora Greene MA 11/18/2024 Telephone Hematology and Oncology - [address] [phone] Dhaval Bradley MD 11/16/2024 8:45 AM EDT [facility] [address] [place] [address] Jose D Hough, TIFFANIE Type 2 diabetes mellitus with hyperglycemia, with long-term current use of insulin ([facility] V24, [facility] V28) 11/16/2024 Telephone [facility] [address] [place] [address] Darby Bautista RN 11/12/2024 11:07 AM EDT - 11/12/2024 11:59 PM EDT Hospital Encounter [facility] [address] [place] [address] Acute blood loss anemia (Primary Dx); Acute on chronic anemia Discharge Disposition: Home or Self Care 11/10/2024 1:36 PM EDT - 11/10/2024 11:59 PM EDT Hospital Encounter [facility] [address] [place] [address] Iron deficiency anemia due to chronic blood loss; Alcoholic cirrhosis of liver without ascites ([facility] V24, [facility] V28); Hypovitaminosis D Discharge Disposition: Home or Self Care 11/09/2024 Telephone [facility] [address] [place] [address] Liss John, TIFFANIE 11/09/2024 Telephone [facility] [address] [place] [address] Liss John, RN 11/09/2024 Telephone [facility] [address] [place] [address] Liss John, RN 11/09/2024 Telephone [facility] [address] [place] [address] Liss John, TIFFANIE 11/02/2024 Telephone [facility] [address] [place] [address] Liss John, TIFFANIE 11/01/2024 7:10 AM EDT - 11/02/2024 8:23 PM EDT Hospital Encounter [facility] Med Card 9-9 [address] [place] [address] Rios Betancourt MD Casey, Monet, MD Jain, Varun, MD SOB (shortness of breath) (Primary Dx); Elevated troponin; Hypomagnesemia; Acute on chronic diastolic congestive heart failure (CMS/HCC V24, CMS/HCC V28); S/P IVC filter Discharge Disposition: Home or Self Care 10/27/2024 10:02 AM EDT - 10/27/2024 11:59 PM EDT Hospital Encounter [facility] [address] [place] [address] Acute blood loss anemia (Primary Dx); Acute on chronic anemia Discharge Disposition: Home or Self Care 10/26/2024 10:58 AM EDT - 10/26/2024 11:59 PM EDT Hospital Encounter [facility] [address] [place] [address] Iron deficiency anemia due to chronic blood loss (Primary Dx) Discharge Disposition: Home or Self Care 10/26/2024 [facility] [place] [address] [place] [phone] Elaine Mercado MA 10/19/2024 9:40 AM EDT - 10/19/2024 11:59 PM EDT Hospital Encounter [facility] [address] [place] [phone] Iron deficiency anemia due to chronic blood loss (Primary Dx); Anemia, unspecified type Discharge Disposition: Home or Self Care 10/14/2024 Telephone [facility] [address] [place] [phone] Aminta Queen, TIFFANIE 10/14/2024 Telephone [facility] [address] [place] [address] Elizabeth Chau RN 10/14/2024 Telephone [facility] [place] [address] [place] [address] Sonam Liu 10/05/2024 12:41 PM EDT - 10/07/2024 11:48 AM EDT Hospital Encounter [facility] Oncology Unit 8-[address] [place] [phone] Michael Johnson MD Uddin, Syed Mohammad Mazhar, MD El Hag, Alauddin, MD Gastrointestinal hemorrhage with melena (Primary Dx); Swelling; Tenderness; Esophageal and gastric varices (CMS/HCC V24, CMS/HCC V28) Discharge Disposition: Home or Self Care 10/05/2024 10:43 AM EDT - 10/05/2024 11:59 PM EDT Hospital Encounter [facility] [address] [place] [phone] Iron deficiency anemia due to chronic blood loss (Primary Dx); Anemia, unspecified type Discharge Disposition: Home or Self Care 09/29/2024 10:14 AM EDT - 09/29/2024 11:59 PM EDT Hospital Encounter [facility] [address] [place] [phone] Acute blood loss anemia (Primary Dx); Acute on chronic anemia Discharge Disposition: Home or Self Care from Last 3 Months Immunizations Name Administration [...] AND PINNING; Surgeon: Woo Morales MD; Location: [facility]; Service: CSMI; Laterality: Left; LUMBAR FUSION 07/01/2017 Posterior PROCEDURE:LUMBAR FUSION;COMMENT:Procedure: EXTENSION OF FUSION L4 - S1; Surgeon: Panchito Pulido MD; Location: [facility]; Service: Spine; Laterality: Posterior; LUMBAR LAMINECTOMY 07/01/2017 Posterior PROCEDURE:LUMBAR LAMINECTOMY;COMMENT:Procedure : L4, L5 LAMINECTOMY POSTERIOR LUMBAR ; Surgeon: Panchito Pulido MD; Location: [facility]; Service: Spine; Laterality: Posterior; OTHER SURGICAL HISTORY 07/01/2017 N/A PROCEDURE:EXPLORATION OF SPINAL FUSION;COMMENT:Procedure: L4-S1 EXPLORATION OF SPINAL FUSION; Surgeon: Panchito Pulido MD; Location: [facility]; Service: Spine; Laterality: N/A; HARDWARE REMOVAL 07/01/2017 Posterior PROCEDURE:HARDWARE REMOVAL;COMMENT:Procedure: REMOVE HARDWARE SPINE L5 - S1; Surgeon: Panchito Pulido MD; Location: [facility]; Service: Spine; Laterality: Posterior; LUMBAR EPIDURAL INJECTION 08/13/2016 Bilateral PROCEDURE:LUMBAR EPIDURAL INJECTION;COMMENT:Procedure: INJECTION ANESTHETIC AGENT LUMBAR; Surgeon: Thania Leo MD; Location: [facility]; Service: Rehab Medicine; Laterality: Bilateral; OTHER SURGICAL HISTORY 05/10/2016 N/A PROCEDURE:ENDOSCOPY; CAPSULE RETURN;COMMENT:Procedure: ENDOSCOPY CAPSULE RETURN; Surgeon: Jose D Hayes MD; Location: [facility]; Service: Gastroenterology; Laterality: N/A; OTHER SURGICAL HISTORY 05/10/2016 N/A PROCEDURE:ENDOSCOPY; CAPSULE PLACEMENT;COMMENT:Procedure: ENDOSCOPY CAPSULE PLACEMENT; Surgeon: Jose D Hayes MD; Location: [facility]; Service: Gastroenterology; Laterality: N/A; COLONOSCOPY 05/09/2016 N/A PROCEDURE:COLONOSCOPY;COMMENT :Procedure: colonoscopy; Surgeon: Jose D Hayes MD; Location: [facility]; Service: Gastroenterology; Laterality: N/A; UPPER GASTROINTESTINAL ENDOSCOPY 05/09/2016 N/A PROCEDURE:UPPER GASTROINTESTINAL ENDOSCOPY;COMMENT:Procedure: UPPER ENDOSCOPY-EGD; Surgeon: Jose D Hayes MD; Location: [facility]; Service: Gastroenterology; Laterality: N/A; LUMBAR EPIDURAL INJECTION 09/12/2015 N/A PROCEDURE:LUMBAR EPIDURAL INJECTION;COMMENT:Procedure: caudal epidural steroid injection ; Surgeon: Thania Leo MD; Location: [facility]; Service: Rehab Medicine; Laterality: N/A; LUMBAR EPIDURAL INJECTION 03/03/2015 N/A PROCEDURE:LUMBAR EPIDURAL INJECTION;COMMENT:Procedure: INJECTION STEROID LUMBAR EPIDURAL; Surgeon: Thania Leo MD; Location: [facility]; Service: Rehab Medicine; Laterality: N/A; LUMBAR FUSION 01/07/2020 Posterior PROCEDURE:LUMBAR FUSION;COMMENT:Procedure: L4-5 FUSION SPINE LUMBAR - TLIF 1 LEVEL; Surgeon: Panchito Pulido MD; Location: [facility]; Service: Spine; Laterality: Posterior; LUMBAR FUSION 01/07/2020 Posterior PROCEDURE:LUMBAR FUSION;COMMENT:Procedure: L4-5 FUSION SPINE LUMBAR POSTERIOR 2 LEVELS; Surgeon: Panchito Pulido MD; Location: [facility]; Service: Spine; Laterality: Posterior; OTHER SURGICAL HISTORY 01/07/2020 Posterior PROCEDURE:EXPLORATION OF SPINAL FUSION;COMMENT:Procedure: EXPLORATION OF SPINAL FUSION; Surgeon: Panchito Pulido MD; Location: [facility]; Service: Spine; Laterality: Posterior; LAMINECTOMY 09/26/2020 Posterior PROCEDURE:LAMINECTOMY;COMMENT :Procedure: RIGHT L3-4 MIS LAMINECTOMY FOR EXCISION OF LESION; Surgeon: Panchito Pulido MD; Location: [facility]; Service: Spine; Laterality: Posterior; HAND SURGERY Left PROCEDURE:HAND SURGERY;COMMENT:x3 MASS EXCISION 08/28/2021 Right PROCEDURE:MASS EXCISION;COMMENT:Procedure: EXCISION OF RIGHT AXILLARY LIPOMA; Surgeon: Bib Hall MD; Location: [facility]; Service: General; Laterality: Right; UPPER GASTROINTESTINAL ENDOSCOPY 11/22/2022 N/A PROCEDURE:UPPER GASTROINTESTINAL ENDOSCOPY;COMMENT:Procedure: UPPER ENDOSCOPY-EGD; Surgeon: Giselle Hicks MD; Location: [facility]; Service: Gastroenterology; Laterality: N/A; COLONOSCOPY 11/22/2022 N/A PROCEDURE:COLONOSCOPY;COMMENT :Procedure: COLONOSCOPY; Surgeon: Giselle Hicks MD; Location: [facility]; Service: Gastroenterology; Laterality: N/A; UPPER GASTROINTESTINAL ENDOSCOPY 08/26/2023 N/A PROCEDURE:UPPER GASTROINTESTINAL ENDOSCOPY;COMMENT:Procedure: UPPER ENDOSCOPY-EGD; Surgeon: Giselle Hicks MD; Location: [facility]; Service: Gastroenterology; Laterality: N/A; Medical History Medical History Date Comments HTN (hypertension) DX:HTN (hyper tension) Fracture of rib of right side DX :Fracture of rib of right side;COMMENT:2 ribs Gout DX:Gout Alcoholism (CMS/HCC V24, CMS/HCC V28) DX:Alcoholism ([facility]) Chicken pox DX:Chicken pox Rheumatic fever DX:Rheumatic fev er Hospital acquired MRSA infection 2000 DX:Hospital acquired MRSA infection;COMMENT:MRSA of Spine Staph infection 2006 DX:Staph infecti on;COMMENT:Left arm Iron deficiency anemia DX:Iron d eficiency anemia Acid reflux DX:Acid reflux History of transfusion DX:Histor y of transfusion Kidney stone DX:Kidney stone HL (hearing loss) DX:HL (hearing loss);COMMENT:Hearing aids young Rosacea DX:Rosacea Bleeding disorder ([facility] V24) DX:Bleeding disorder ([facility]) GI bleed 2017 DX:GI bleed Numbness and tingling of both feet DX:Numbness and tingling of both feet GERD (gastroesophageal reflu x disease) DX:GERD (gastroesophageal re flux disease) Anemia DX:Anemia DVT (deep venous thrombosis) ([facility] V24, [facility] V28) 03/2016 DX:DVT (deep venous thrombos is) ([facility]);COMMENT:left LE, patient states chronic clot Leg swelling DX:Leg swelling Bruises easily DX:Bruises easil y Sleep apnea, obstructive DX:Slee p apnea, obstructive;COMMENT:CPAP recommended, pt unable to tolerate Depression DX:Depression;CO MMENT:Remote hx Visual impairment DX:Visual impa irment;COMMENT:Wears glasses Diabetes mellitus, type II ( [facility] V24, [facility] V28) DX:Diabetes mellitus, type I I ([facility]) DM (diabetes mellitus) ([facility] V24, [facility] V28) DX:DM (diabetes mellitus) ( [facility]) Pulmonary embolus ([facility] V 24, [facility] V28) 02/27/2016 DX:Pulmonary embolus ([facility]) Family History Medical History Relation Name Comments No Known Problems Brother Scott Clotting disorder Cousin No Known Problems Daughter Aubrie No Known Problems Father Clotting disorder Maternal Grandmother 98 Diabetes Maternal Grandmother 98 Cancer Mother 84 Lymphoma Mother 84 No Known Problems Sister Nessa Crohn's disease Son Dwight Man Relation Name Status Comments Brother Scott Alive Cousin Alive Daughter Aubrie Alive Father Alive Maternal Grandmother 98 Mother 84 LYMPHOMA Sister Nessa Alive Son Dwight Man Alive Social History Tobacco Use Types [...] for your loved ones. For example, children's ministries director or elderly care for an older [...] Pulse 72 12/30/2024 10:39 AM EDT Temperature 36.7 C (98.1 F) 12/28/2024 1:19 PM EDT Respiratory Rate 18 12/28/2024 1:19 PM EDT Oxygen Saturation 99% 12/28/2024 1:19 PM EDT Inhaled Oxygen Concentration - - Weight 105 kg (231 lb 6.4 oz) 12/30/2024 10:39 A M EDT Height 182.9 cm (6') 11/24/2024 6:00 PM EDT Body Mass Index 31.38 11/24/2024 6:00 PM EDT Plan of Treatment Upcoming Encounters Date Type Department Care Team (Late st Contact Info) Description 02/08/2025 4:15 PM EDT [facility] [address] [place] [phone] Joann Strauss PA [address] [place] [address] 02/09/2025 10:00 AM EDT [facility] [address] [place] [phone] 02/09/2025 10:30 AM EDT Office Visit [facility] [place] [address] [place] [phone] Fitz Dumont PA [address] [place], [place] [id number] 02/11/2025 11:20 AM EDT Office Visit [facility] [address] [facility] [address] [place] [phone] Leonid Watson, DO [address] [place] [address] [place] [address] 03/01/2025 2:15 PM [facility] Support [facility] [address] [place] [phone] Jose D Hough, RN [address] [place] [address] Health Maintenance Due Date Last Done Comments Diabetes: Annual Foot Exam 1978 Hepatitis A Vaccines (1 of 2 - Risk 2-dose series) 1987 Diabetes: Annual Retina Eye Exam 02/21/2024 02/20/2023 Diabetes: Annual Urine Albumin-Creatinine Ratio (uACR) 10/07/2024 10/08/2023, 05/28/2023, 02/21/2022, Additional history exists Medicare Annual Wellness Visit 10/20/2024 10/21/2023 COVID-19 Vaccine ( season) 2024 12/21/2022, 03/03/2022, 10/24/2021, Additional history exists Influenza Vaccine (#1) 2024 , 01/13/2021, 01/25/2020, Additional history exists Diabetes: Blood Sugar Control Test (HGBA1C) 04/06/2025 10/05/2024, 07/23/2024, 06/28/2024, Additional history exists Social Influencers of Health Screening 07/22/2025 07/22/2024 Diabetes: Annual GFR (Glomerular Filtration Rate) 12/28/2025 12/28/2024, 12/01/2024, 11/28/2024, Additional history exists Hypertension/CHF/CAD Annual BMP Blood Test 12/28/2025 12/28/2024, 12/01/2024, 11/28/2024, Additional history exists Cholesterol Screening (Lipid Panel) 11/02/2029 11/02/2024, 05/28/2023, 05/28/2023, Additional history exists Colorectal Cancer Screening: Colonoscopy 11/22/2032 11/22/2022 DTaP,Tdap,and Td Vaccines (2 - Td or Tdap) 10/20/2033 10/21/2023 Zoster Vaccines Completed 03/02/2020, 12/22/2019 Pneumococcal Vaccine: 50+ Years Completed 10/21/2023, 02/25/2019 Hepatitis C Screening Completed 08/27/2024, 024 Depression Screening Completed 12/23/2024, 10/21/19 24 HIB Vaccines Aged Out No longer eligi [...] this topic Medical Devices Implanted Type Area Director Of Photography Device Identifier Shelf Expiration Date Model / Serial / Lot Surgiflo Hemostatic Matrix [facility] [id number] Implanted:Qty: 1 on 03/26/2022 by Panchito Pulido DO Implants Left: Spine Lumbar [facility] [employer] 11/20/2023 [id number] / / [id number] Plate /3 Tubular 5h 59mm - Sn/A - [id number] Implanted:Qty: 1 on 05/18/2024 by Pawel Harden MD at [facility] Internal and External Fixation Right: Ankle [employer] [id number] / N/A / N/A Screw Bone T10 F-Thread L65mm - Sn/A - [id number] Implanted:Qty: 1 on 05/18/2024 by Pawel Harden MD at [facility] Internal and External Fixation Right: Ankle [employer] [id number] / N/A / N/A Screw Bone 3.5x60mm Full Thrd T10 - Sn/A - [id number] Implanted:Qty: 2 on 05/18/2024 by Pawel Harden MD at [facility] Internal and External Fixation Right: Ankle [employer] [id number] / N/A / N/A Screw Bone 3.5x70mm Thrd T18 Full Thread - Sn/A - [id number] Implanted:Qty: 1 on 05/18/2024 by Pawel Harden MD at [facility] Internal and External Fixation Right: Ankle [employer] [id number] / N/A / N/A Kit Infuse Medium 2x1in 20ga 5.6ml Vial Absorbable Collagen - [id number] Implanted:Qty: 1 on 01/07/2020 by Panchito Pulido DO Spine Lumbar [employer] 12/20/2021 [id number] / / [id number] Screw Matrix 50mm 8mm Thread Titanium Bone Spine - [id number] Implanted:Qty: 1 on 01/07/2020 by Panchito Pluido, N/A: Spine Lumbar [employer] 04.639.850 / / Michael 45mm 5.5mm Curved Titanium Exfix Nonsterile - [id number] Implanted:Qty: 1 on 01/07/2020 by Panchito Pulido DO Spine Lumbar [employer] 04.636.045 / / Michael Matrix 50mm 5.5mm Curved Titanium Exfix Pedcl Posterior - [id number] Implanted:Qty: 1 on 01/07/2020 by Panchito Pulido DO Spine Lumbar [employer] 04.636.050 / / Graft Bone Readigraft Preservon Cancellous 1-8 Mm 15 Cc Chip - [id number] - [id number] Implanted:Qty: 1 on 01/07/2020 by Panchito Pulido DO Spine Lumbar [employer] 04/03/2024 [id number] / [id number] / Graft Pliafx 10cc Freeze Dry Bone Fibers Bone - [id number] - [id number] Implanted:Qty: 1 on 01/07/2020 by Panchito Pulido DO Spine Lumbar [employer] 08/17/2023 [id number] / [id number] / Shell Flarehawk 9 Short 25mm - [id number] Implanted:Qty: 1 on 01/07/2020 by Panchito Pulido DO Spine Lumbar [employer] [id number] / / Baljit 13mm Or [id number] Mm 6 Degree Version C - [id number] Implanted:Qty: 1 on 01/07/2020 by Panchito Pulido DO Spine Lumbar [employer] [id number] / / Cap Matrix Flat 5.5mm Step Square Thread Stardrive Cocr - [id number] Implanted:Qty: 4 on 01/07/2020 by Panchito Pulido, N/A: Spine Lumbar [employer] 632.099 / / Head Matrix Polyaxial Top Loading Titanium Screw Spine - [id number] Implanted:Qty: 4 on 01/07/2020 by Panchito Pulido DO N/A: Spine Lumbar [employer] 04.632.001 / / Screw Matrix T25 Low Profile 45mm 6mm 2 Core 2 Lead - [id number] Implanted:Qty: 2 on 01/07/2020 by Panchito Pulido, N/A: Spine Lumbar [employer] 04.639.645 / / Screw Matrix T25 Low Profile 50mm 7mm 2 Core 2 Lead - [id number] Implanted:Qty: 1 on 01/07/2020 by Panchito Pulido DO N/A: Spine Lumbar [employer] 04.639.750 / / Port Pwr Mri Isp 8f Micintrdcr Crba-Sissy [id number] Implanted:Qty: 1 on 11/15/[address] PA [facility] 05/22/2025 [id number] / / [id number] Procedures Procedure Name Priority Date/Time Associated Diagnosis [...] blood loss CBC WITH AUTO DIFFERENTIAL Routine 12/23/2024 10:03 AM EDT Iron deficiency anemia due to chronic blood loss Acute on chronic anemia Alcoholic cirrhosis of liver without ascites (CMS/HCC V24, CMS/HCC V28) TYPE AND SCREEN Routine 12/23/2024 10:03 AM EDT Iron deficiency anemia due to chronic blood loss Acute on chronic anemia Alcoholic cirrhosis of liver without ascites (CMS/HCC V24, CMS/HCC V28) CBC AND DIFFERENTIAL Routine 12/23/2024 10:03 AM EDT Iron deficiency anemia due to chronic blood loss Acute on chronic anemia Alcoholic cirrhosis of liver without ascites (CMS/HCC V24, CMS/HCC V28) CBC WITH AUTO DIFFERENTIAL Routine 12/15/2024 9:35 AM EDT Iron deficiency anemia, unspecified iron deficiency anemia type CBC AND DIFFERENTIAL Routine 12/15/2024 9:35 AM EDT Iron deficiency anemia, unspecified iron deficiency anemia type TYPE AND SCREEN Routine 12/15/2024 9:35 AM EDT Iron deficiency anemia, unspecified iron deficiency anemia type TYPE AND SCREEN Routine 12/08/2024 9:42 AM EDT Iron deficiency anemia due to chronic blood loss CBC WITH AUTO DIFFERENTIAL Routine 12/08/2024 9:42 AM EDT Iron deficiency anemia due to chronic blood loss CBC AND DIFFERENTIAL Routine 12/08/2024 9:42 AM EDT Iron deficiency anemia due to chronic blood loss COMPREHENSIVE METABOLIC PANEL Routine 12/01/2024 2:22 PM EDT Hyponatremia CBC WITH AUTO DIFFERENTIAL Routine 12/01/2024 1:54 PM EDT Iron deficiency anemia due to chronic blood loss TYPE AND SCREEN Routine 12/01/2024 1:54 PM EDT Iron deficiency anemia due to chronic blood loss CBC AND DIFFERENTIAL Routine 12/01/2024 1:54 PM EDT Iron deficiency anemia due to chronic blood loss POCT GLUCOSE BLOOD Routine 11/28/2024 12 :31 PM EDT POTASSIUM, URINE, RANDOM Routine 11/28/2024 10:17 AM EDT OSMOLALITY, URINE Routine 11/28/2024 10: 17 AM EDT CREATININE, URINE, RANDOM Routine 11/28/2024 10:17 AM EDT SODIUM, URINE, RANDOM Routine 11/28/2024 10:17 AM EDT POCT GLUCOSE BLOOD Routine 11/28/2024 8: 32 AM EDT CBC WITH AUTO DIFFERENTIAL Timed 11/28/2024 5:30 AM EDT BASIC METABOLIC PANEL Timed 11/28/2024 5:30 AM EDT CBC AND DIFFERENTIAL Timed 11/28/2024 5:30 AM EDT POCT GLUCOSE BLOOD Routine 11/28/2024 2: 08 AM EDT POCT GLUCOSE BLOOD Routine 11/28/2024 12 :48 AM EDT POCT GLUCOSE BLOOD Routine 11/27/2024 11 :32 PM EDT POCT GLUCOSE BLOOD Routine 11/27/2024 10 :30 PM EDT POCT GLUCOSE BLOOD Routine 11/27/2024 9: 21 PM EDT ECG 12-LEAD STAT 11/27/2024 9:08 PM EDT POTASSIUM Timed 11/27/2024 7:54 PM EDT POCT GLUCOSE BLOOD Routine 11/27/2024 7: 43 PM EDT POCT GLUCOSE BLOOD Routine 11/27/2024 5: 48 PM EDT BASIC METABOLIC PANEL Routine 11/27/2024 1:04 PM EDT POCT GLUCOSE BLOOD Routine 11/27/2024 12 :53 PM EDT POTASSIUM, URINE, RANDOM Routine 11/27/2024 10:10 AM EDT OSMOLALITY, URINE Routine 11/27/2024 10: 10 AM EDT CREATININE, URINE, RANDOM Routine 11/27/2024 10:10 AM EDT SODIUM, URINE, RANDOM Routine 11/27/2024 10:10 AM EDT POCT GLUCOSE BLOOD Routine 11/27/2024 8: 18 AM EDT BASIC METABOLIC PANEL Timed 11/27/2024 4:49 AM EDT PHOSPHORUS Timed 11/27/2024 4:49 AM EDT MAGNESIUM Timed 11/27/2024 4:49 AM EDT COMPLETE BLOOD COUNT Timed 11/27/2024 4:49 AM EDT BASIC METABOLIC PANEL Timed 11/26/2024 7:55 PM EDT POCT GLUCOSE BLOOD Routine 11/26/2024 7: 43 PM EDT POCT GLUCOSE BLOOD Routine 11/26/2024 5: 29 PM EDT BASIC METABOLIC PANEL STAT 11/26/2024 4:35 PM EDT BASIC METABOLIC PANEL STAT 11/26/2024 2:01 PM EDT POCT GLUCOSE BLOOD Routine 11/26/2024 1: 58 PM EDT BASIC METABOLIC PANEL Timed 11/26/2024 12:29 PM EDT POTASSIUM, URINE, RANDOM Routine 11/26/2024 10:00 AM EDT OSMOLALITY, URINE Routine 11/26/2024 10: 00 AM EDT CREATININE, URINE, RANDOM Routine 11/26/2024 10:00 AM EDT SODIUM, URINE, RANDOM Routine 11/26/2024 10:00 AM EDT POCT GLUCOSE BLOOD Routine 11/26/2024 9: 10 AM EDT URIC ACID Add-On 11/26/2024 5:56 AM EDT BASIC METABOLIC PANEL Timed 11/26/2024 5:56 AM EDT PHOSPHORUS Timed 11/26/2024 5:56 AM EDT MAGNESIUM Timed 11/26/2024 5:56 AM EDT COMPLETE BLOOD COUNT Timed 11/26/2024 5:56 AM EDT BASIC METABOLIC PANEL Timed 11/26/2024 12:39 AM EDT POCT GLUCOSE BLOOD Routine 11/25/2024 9: 01 PM EDT ECG 12-LEAD STAT 11/25/2024 8:16 PM EDT BASIC METABOLIC PANEL Timed 11/25/2024 5:46 PM EDT POCT GLUCOSE BLOOD Routine 11/25/2024 5: 38 PM EDT POCT GLUCOSE BLOOD Routine 11/25/2024 12 :47 PM EDT SODIUM Timed 11/25/2024 10:59 AM EDT POCT GLUCOSE BLOOD Routine 11/25/2024 8: 17 AM EDT POTASSIUM, URINE, RANDOM Routine 11/25/2024 7:17 AM EDT OSMOLALITY, URINE Routine 11/25/2024 7:1 7 AM EDT CREATININE, URINE, RANDOM Routine 11/25/2024 7:17 AM EDT SODIUM, URINE, RANDOM Routine 11/25/2024 7:17 AM EDT THYROID STIMULATING HORMONE WITH REFLEX FREE T4 Routine 11/25/2024 5:36 AM EDT CORTISOL Routine 11/25/2024 5:36 AM EDT PHOSPHORUS Timed 11/25/2024 5:36 AM EDT MAGNESIUM Timed 11/25/2024 5:36 AM EDT COMPLETE BLOOD COUNT Timed 11/25/2024 5:36 AM EDT BASIC METABOLIC PANEL Timed 11/25/2024 5:36 AM EDT BASIC METABOLIC PANEL STAT 11/24/2024 10:41 PM EDT ECG 12-LEAD STAT 11/24/2024 9:38 PM EDT POCT GLUCOSE BLOOD Routine 11/24/2024 9: 24 PM EDT POCT GLUCOSE BLOOD Routine 11/24/2024 7: 21 PM EDT SODIUM Timed 11/24/2024 5:44 PM EDT OSMOLALITY, URINE Routine 11/24/2024 4:5 3 PM EDT POTASSIUM, URINE, RANDOM Routine 11/24/2024 4:53 PM EDT SODIUM, URINE, RANDOM Routine 11/24/2024 4:53 PM EDT URINALYSIS WITH REFLEX MICROSCOPIC STAT 11/24/2024 4:53 PM EDT URINALYSIS WITH REFLEX MICROSCOPIC STAT 11/24/2024 4:53 PM EDT OSMOLALITY STAT 11/24/2024 12:09 PM EDT COMPLETE BLOOD COUNT STAT 11/24/2024 12:09 PM EDT COMPREHENSIVE METABOLIC PANEL STAT 11/24/2024 12:09 PM EDT CBC WITH AUTO DIFFERENTIAL Routine 11/23/2024 10:06 AM EDT Iron deficiency anemia due to chronic blood loss TYPE AND SCREEN Routine 11/23/2024 10:06 AM EDT Iron deficiency anemia due to chronic blood loss CBC AND DIFFERENTIAL Routine 11/23/2024 10:06 AM EDT Iron deficiency anemia due to chronic blood loss COMPREHENSIVE METABOLIC PANEL Routine 11/23/2024 10:06 AM EDT Iron deficiency anemia due to chronic blood loss FERRITIN Routine 11/23/2024 10:06 AM EDT Iron deficiency anemia due to chronic blood loss IRON AND TIBC Routine 11/23/2024 10:06 AM EDT Iron deficiency anemia due to chronic blood loss TRANSFUSE RED BLOOD CELLS Routine 11/12/2024 11:45 AM EDT Acute blood loss anemia Acute on chronic anemia PREPARE RBC Routine 11/12/2024 6:59 AM EDT Acute blood loss anemia Acute on chronic anemia GLUCOSE MONITORING CONTINUOUS Routine 11/11/2024 4:16 PM EDT CBC WITH AUTO DIFFERENTIAL Routine 11/10/2024 2:07 PM EDT Iron deficiency anemia due to chronic blood loss Alcoholic cirrhosis of liver without ascites (CMS/HCC V24, CMS/HCC V28) Hypovitaminosis D VITAMIN D 25 HYDROXY Routine 11/10/2024 2:07 PM EDT Iron deficiency anemia due to chronic blood loss Alcoholic cirrhosis of liver without ascites (CMS/HCC V24, CMS/HCC V28) Hypovitaminosis D COMPREHENSIVE METABOLIC PANEL Routine 11/10/2024 2:07 PM EDT Iron deficiency anemia due to chronic blood loss Alcoholic cirrhosis of liver without ascites (CMS/HCC V24, CMS/HCC V28) Hypovitaminosis D CBC AND DIFFERENTIAL Routine 11/10/2024 2:07 PM EDT Iron deficiency anemia due to chronic blood loss Alcoholic cirrhosis of liver without ascites (CMS/HCC V24, CMS/HCC V28) Hypovitaminosis D TYPE AND SCREEN Routine 11/10/2024 2:07 PM EDT Iron deficiency anemia due to chronic blood loss POCT GLUCOSE BLOOD Routine 11/02/2024 5: 56 PM EDT POCT GLUCOSE BLOOD Routine 11/02/2024 1: 53 PM EDT TRANSTHORACIC ECHOCARDIOGRAM (TTE) COMPLETE Today 11/02/2024 12:07 PM EDT SOB (shortness of breath) Elevated troponin VITAMIN B12 AND FOLATE Routine 11:08 AM EDT PHOSPHORUS Routine 11/02/2024 11:08 AM EDT MAGNESIUM STAT 11/02/2024 11:08 AM EDT BASIC METABOLIC PANEL Routine 11/02/2024 11:08 AM EDT POCT GLUCOSE BLOOD Routine 11/02/2024 9: 57 AM EDT GAMMA GLUTAMYL TRANSFERASE STAT Add-on 11/02/2024 7:19 AM EDT HEPATIC FUNCTION PANEL STAT Add-on 7:19 AM EDT FERRITIN STAT Add-on 11/02/2024 7:19 AM EDT CBC WITH AUTO DIFFERENTIAL Routine 11/02/2024 7:19 AM EDT LIPID PANEL Routine 11/02/2024 7:19 AM EDT THYROID STIMULATING HORMONE WITH REFLEX FREE T4 Routine 11/02/2024 7:19 AM EDT MAGNESIUM Routine 11/02/2024 7:19 AM EDT CBC AND DIFFERENTIAL Routine 11/02/2024 7:19 AM EDT COMPREHENSIVE METABOLIC PANEL Routine 11/02/2024 7:19 AM EDT POCT GLUCOSE BLOOD Routine 11/01/2024 9: [address] HEAD WO CONTRAST Routine 11/01/2024 6 :38 PM EDT ACTIVATED PARTIAL THROMBOPLASTIN TIME STAT 11/01/2024 6:29 PM EDT PROTHROMBIN TIME WITH INR STAT 11/01/2024 6:29 PM EDT MAGNESIUM Routine 11/01/2024 6:29 PM EDT BASIC METABOLIC PANEL Routine 11/01/2024 6:29 PM EDT TROPONIN I HIGH SENSITIVITY STAT 11/01/2024 3:[address] ANGIO CHEST WO AND/OR W CONTRAST Routine 11/01/2024 9:57 AM EDT SOB (shortness of breath) ETHANOL STAT 11/01/2024 9:38 AM EDT ECG 12-LEAD STAT 11/01/2024 9:36 AM EDT B-TYPE NATRIURETIC PEPTIDE STAT 11/01/2024 8:22 AM EDT TYPE AND SCREEN STAT 11/01/2024 8:22 AM EDT TROPONIN I HIGH SENSITIVITY STAT 11/01/2024 8:22 AM EDT CBC WITH AUTO DIFFERENTIAL STAT 11/01/2024 7:55 AM EDT CBC AND DIFFERENTIAL STAT 11/01/2024 7:55 AM EDT MAGNESIUM STAT 11/01/2024 7:54 AM EDT BASIC METABOLIC PANEL STAT 11/01/2024 7:54 AM EDT ECG 12-LEAD STAT 11/01/2024 7:23 AM EDT TRANSFUSE RED BLOOD CELLS Routine 10/27/2024 11:39 AM EDT Acute blood loss anemia Acute on chronic anemia PREPARE RBC Routine 10/27/2024 8:19 AM EDT Acute blood loss anemia Acute on chronic anemia CBC WITH AUTO DIFFERENTIAL Routine 10/26/2024 11:19 AM EDT Iron deficiency anemia due to chronic blood loss CBC AND DIFFERENTIAL Routine 10/26/2024 11:19 AM EDT Iron deficiency anemia due to chronic blood loss TYPE AND SCREEN Routine 10/26/2024 11:19 AM EDT Iron deficiency anemia due to chronic blood loss CBC WITH AUTO DIFFERENTIAL Routine 10/19/2024 10:05 AM EDT Anemia, unspecified type COMPREHENSIVE METABOLIC PANEL Routine 10/19/2024 10:05 AM EDT Anemia, unspecified type CBC AND DIFFERENTIAL Routine 10/19/2024 10:05 AM EDT Anemia, unspecified type TYPE AND SCREEN Routine 10/19/2024 10:05 AM EDT Iron deficiency anemia due to chronic blood loss POCT GLUCOSE BLOOD Routine 10/07/2024 8: 07 AM EDT HEMOGLOBIN AND HEMATOCRIT Timed 10/07/2024 5:18 AM EDT MAGNESIUM Routine 10/07/2024 5:18 AM EDT BASIC METABOLIC PANEL Routine 10/07/2024 5:18 AM EDT COMPLETE BLOOD COUNT Routine 10/07/2024 5:18 AM EDT POCT GLUCOSE BLOOD Routine 10/07/2024 1: 57 AM EDT POCT GLUCOSE BLOOD Routine 10/06/2024 11 :47 PM EDT HEMOGLOBIN AND HEMATOCRIT Timed 10/06/2024 11:31 PM EDT POCT GLUCOSE BLOOD Routine 10/06/2024 9: 07 PM EDT POCT GLUCOSE BLOOD Routine 10/06/2024 6: 03 PM EDT TRANSFUSE RED BLOOD CELLS Routine 10/06/2024 5:53 PM EDT PREPARE RBC Routine 10/06/2024 4:16 PM EDT HEMOGLOBIN AND HEMATOCRIT Timed 10/06/2024 3:52 PM EDT POCT GLUCOSE BLOOD Routine 10/06/2024 12 :57 PM EDT POCT GLUCOSE BLOOD Routine 10/06/2024 11 :52 AM EDT TRANSFUSE RED BLOOD CELLS Routine 10/06/2024 10:57 AM EDT VAS US DUPLEX LOWER EXT VENOUS BILAT Routine 10/06/2024 9:26 AM EDT Tenderness PREPARE RBC STAT 10/06/2024 7:33 AM EDT CBC WITH AUTO DIFFERENTIAL Routine 10/06/2024 6:04 AM EDT MAGNESIUM Routine 10/06/2024 6:04 AM EDT COMPREHENSIVE METABOLIC PANEL Routine 10/06/2024 6:04 AM EDT CBC AND DIFFERENTIAL Routine 10/06/2024 6:04 AM EDT LACTATE, WITH REFLEX Timed 10/06/2024 6:04 AM EDT POCT GLUCOSE BLOOD Routine 10/06/2024 4: 26 AM EDT TRANSFUSE RED BLOOD CELLS Routine 10/06/2024 1:52 AM EDT POCT GLUCOSE BLOOD Routine 10/06/2024 1: 14 AM EDT HEMOGLOBIN AND HEMATOCRIT Timed 10/05/2024 9:37 PM EDT BASIC METABOLIC PANEL STAT 10/05/2024 9:37 PM EDT POCT GLUCOSE BLOOD Routine 10/05/2024 9: 01 PM EDT LACTATE, WITH REFLEX STAT 10/05/2024 8:20 PM EDT POCT GLUCOSE BLOOD Routine 10/05/2024 6: 53 PM EDT PH, VENOUS STAT 10/05/2024 4:59 PM EDT KETONES, BLOOD STAT 10/05/2024 4:59 PM EDT TRANSFUSE RED BLOOD CELLS STAT 10/05/2024 4:48 PM EDT POCT GLUCOSE BLOOD Routine 10/05/2024 4: 45 PM EDT PREPARE RBC STAT 10/05/2024 2:11 PM EDT POCT GLUCOSE BLOOD Routine 10/05/2024 1: 42 PM EDT RBC MORPHOLOGY REVIEW Routine 10/05/2024 1:12 PM EDT HEMOGLOBIN A1C Add-On 10/05/2024 1:12 PM EDT CBC WITH AUTO DIFFERENTIAL STAT 10/05/2024 1:12 PM EDT COMPREHENSIVE METABOLIC PANEL STAT 10/05/2024 1:12 PM EDT TYPE AND SCREEN STAT 10/05/2024 1:12 PM EDT CBC AND DIFFERENTIAL STAT 10/05/2024 1:12 PM EDT NC CRITICAL CARE 30-74 MINUTES Routine 10/05/2024 12:39 PM EDT RBC MORPHOLOGY REVIEW Routine 10/05/2024 11:10 AM EDT Anemia, unspecified type CBC WITH AUTO DIFFERENTIAL Routine 10/05/2024 11:10 AM EDT Anemia, unspecified type CBC AND DIFFERENTIAL Routine 10/05/2024 11:10 AM EDT Anemia, unspecified type TYPE AND SCREEN Routine 10/05/2024 11:10 AM EDT Iron deficiency anemia due to chronic blood loss TRANSFUSE RED BLOOD CELLS Routine 09/29/2024 10:37 AM EDT Acute blood loss anemia Acute on chronic anemia PREPARE RBC Routine 09/29/2024 7:04 AM EDT Acute blood loss anemia Acute on chronic anemia HEPATITIS C ANTIBODY Routine 08/27/2024 12:32 PM EDT Alcoholic cirrhosis of liver with ascites (CMS/HCC V24, CMS/HCC V28) HM DEPRESSION SCREENING Routine 10/21/2023 HM URINE ALBUMIN CREATININE RATIO Routine 10/08/2023 HM COLONOSCOPY Routine 11/22/2022 from Last 3 Months or Most Recently Relevant to Health Maintenance Results * (ABNORMAL) Comprehensive metabolic panel (12/28/2024 1:36 PM EDT) Only the most recent of9 resultswithin the time period is included. Sodium 142 135 - 145 mmol/L LAB CHEMISTRY METHOD 12/28/2024 4:18 PM EDT [facility] Potassium 4.2 3.5 - 5.1 mmol/L LAB CHEMISTRY METHOD 12/28/2024 4:18 PM EDT [facility] Chloride 106 98 - 107 mmol/L LAB CHEMISTRY METHOD 12/28/2024 4:18 PM EDT [facility] CO2 25 24 - 32 mmol/L LAB CHEMISTRY METHOD 12/28/2024 4:18 PM EDT [facility] Anion Gap 11 5 - 14 LAB CHEMISTRY METHOD 12/28/2024 4:18 PM EDT [facility] Glucose 136 70 - 199 mg/dL LAB CHEMISTRY METHOD 12/28/2024 4:18 PM EDT [facility] BUN 19 9 - 20 mg/dL LAB CHEMISTRY METHOD 12/28/2024 4:18 PM EDT [facility] Creatinine 1.30 0.70 - 1.30 mg/dL LAB CHEMISTRY METHOD 12/28/2024 4:18 PM EDT [facility] eGFR 64 >=60 mL/min/1. 73m2 LAB CHEMISTRY METHOD 12/28/2024 4:18 PM EDT [facility] Comment:Calculation based on the Chronic Kidney Disease Epidemiology Collaboration (CKD-EPI) equation refit without adjustment for race. BUN/Creatinine Ratio 14.6 12.0 - 20.0 LAB CHEMISTRY METHOD 12/28/2024 4:18 PM EDT [facility] Calcium 9.1 8.4 - 10.2 mg/dL LAB CHEMISTRY METHOD 12/28/2024 4:18 PM EDT [facility] AST (SGOT) 24 5 - 40 unit/L LAB CHEMISTRY METHOD 12/28/2024 4:18 PM EDT [facility] ALT (SGPT) 13 7 - 52 unit/L LAB CHEMISTRY METHOD 12/28/2024 4:18 PM EDT [facility] Alkaline Phosphatase 169(H) 34 - 104 unit/L LAB CHEMISTRY METHOD 12/28/2024 4:18 PM EDT [facility] Total Protein 6.2(L) 6.4 - 8.5 g/dL LAB CHEMISTRY METHOD 12/28/2024 4:18 PM EDT [facility] Albumin 4.0 3.5 - 5.0 g/dL LAB CHEMISTRY METHOD 12/28/2024 4:18 PM EDT [facility] Total Bilirubin 1.1(H) 0.3 - 1.0 mg/dL LAB CHEMISTRY METHOD 12/28/2024 4:18 PM EDT [facility] Blood Venous blood specimen / Unknown Venipuncture / Unknown 12/28/2024 1:36 PM EDT 12/28/2024 1:38 PM EDT [facility] BLOOD ORDERABLES Final Res ult [facility] [address] [place] [address], [place] [phone] * (ABNORMAL) CBC auto differential (12/28/2024 1:25 PM EDT) Only the most recent of15 resultswithin the time period is included. WBC 3.4(L) 4.0 - 10.5 K/mcL LAB HEMETOLOGY METHOD 12/28/2024 1:43 PM EDT [facility] RBC 4.00(L) 4.70 - 6.00 M/mcL LAB HEMETOLOGY METHOD 12/28/2024 1:43 PM EDT [facility] Hemoglobin 11.6(L) 13.5 - 18.0 g/dL LAB HEMETOLOGY METHOD 12/28/2024 1:43 PM EDT [facility] Hematocrit 38.0(L) 40.0 - 54.0 % LAB HEMETOLOGY METHOD 12/28/2024 1:43 PM EDT [facility] MCV 95.0 78.0 - 100.0 FL LAB HEMETOLOGY METHOD 12/28/2024 1:[facility] MCH 29.0 25.0 - 33.0 pcg LAB HEMETOLOGY METHOD 12/28/2024 1:43 PM [facility] MCHC 30.5(L) 32.0 - 36.0 g/dL LAB HEMETOLOGY METHOD 12/28/2024 1:43 PM EDT [facility] RDW 20.1(H) 12.1 - 17.7 % LAB HEMETOLOGY METHOD 12/28/2024 1:43 PM [facility] LAB Platelets 92(L) 150 - 450 K/mcL LAB HEMETOLOGY METHOD 12/28/2024 1:43 PM [facility] Comment: No plt clumps observed Consistent with previous result MPV 11.3 7.4 - 11.4 FL LAB HEMETOLOGY METHOD 12/28/2024 1:43 PM [facility] Neutrophils Relative 62.1 44.0 - 74.0 % LAB HEMETOLOGY METHOD 12/28/2024 1:43 PM [facility] Lymphocytes Relative 18.5(L) 20.0 - 48.0 % LAB HEMETOLOGY METHOD 12/28/2024 1:43 PM [facility] Monocytes Relative 11.0 2.0 - 12.0 % LAB HEMETOLOGY METHOD 12/28/2024 1:43 PM [facility] Eosinophils Relative 7.2(H) 0.0 - 6.0 % LAB HEMETOLOGY METHOD 12/28/2024 1:43 PM [facility] Basophils Relative 0.9 0.0 - 2.0 % LAB HEMETOLOGY METHOD 12/28/2024 1:[address] [facility] Neutrophils Absolute 2.08 1.80 - 7.80 K/mcL LAB HEMETOLOGY METHOD 12/28/2024 1:[address] [facility] Lymphocytes Absolute 0.62(L) 1.00 - 3.20 K/mcL LAB HEMETOLOGY METHOD 12/28/2024 1:[address] [facility] Monocytes Absolute 0.37 0.00 - 0.80 K/mcL LAB HEMETOLOGY METHOD 12/28/2024 1:43 PM [facility] Eosinophils Absolute 0.24 0.00 - 0.50 K/mcL LAB HEMETOLOGY METHOD 12/28/2024 1:[address] [facility] Basophils Absolute 0.03 0.00 - 0.20 K/mcL LAB HEMETOLOGY METHOD 12/28/2024 1:[address] [facility] Blood Venous blood specimen / Unknown Venipuncture / Unknown 12/28/2024 1:25 PM EDT 12/28/2024 1:38 PM EDT us Velma Gonzalez NP LAB BLOOD ORDERABLES Final Re sult [facility] [place] Reg. #:[id number] [address] [place] [address], [place] * Type and screen (12/28/2024 1:25 PM EDT) Only the most recent of12 resultswithin the time period is included. ABO Group A 12/28/2024 4:50 PM EDT [facility] Rh Type Positive 12/28/2024 4:50 PM EDT [facility] Antibody Screen Negative 12/28/2024 4:50 PM EDT [facility] Blood Venous blood specimen / Unknown Venipuncture / Unknown 12/28/2024 1:25 PM EDT 12/28/2024 1:38 PM EDT us Chai Vidal MD LAB BLOOD BANK TEST ORDERABLES Final Result [facility] [address] [place] [address], [place] [phone] * POCT Glucose, blood (11/28/2024 12:31 PM EDT) Only the most recent of38 resultswithin the time period is included. Glucose POCT 124 70 - 199 mg/dL 11/28/2024 12:32 PM EDT [facility] Comment: Fasting Reference Range: 70-99 mg/dL Non-Fasting Reference Range: 70-199 mg/dL Blood Capillary blood specimen / Unknown 11/28/2024 12:31 PM EDT 11/28/2024 12:33 PM EDT [facility] Karly Sudeep DO LAB POINT OF CARE TE ST DOCKED DEVICE UNSOLICITED RESULTS Final Result Performing Organization Address City/[facility]/ZIP Co de Phone Number [facility] [address] [place] [address], [place] [phone] * (ABNORMAL) Sodium, urine, random (11/28/2024 10:17 AM EDT) Only the most recent of5 resultswithin the time period is included. Sodium, Ur 49(L) 50 - 191 mmol/L LAB CHEMISTRY METHOD 11/28/2024 10:43 AM EDT [facility] Urine Urine specimen obtained by clean catch procedure / Unknown Non-blood Collection / Unknown 11/28/2024 10:17 AM EDT 11/28/2024 10:23 AM EDT [facility] Karly Sudeep DO LAB URINE ORDERABLES Final Res ult Performing Organization Address [facility] Co de Phone Number [facility] [address] [place] [address], [place] [phone] * (ABNORMAL) Potassium, urine, random (11/28/2024 10:17 AM EDT) Only the most recent of5 resultswithin the time period is included. Potassium, Ur 17.4(L) 20.0 - 50.0 mmol/L LAB CHEMISTRY METHOD 11/28/2024 10:43 AM EDT [facility] Urine Urine specimen obtained by clean catch procedure / Unknown Non-blood Collection / Unknown 11/28/2024 10:17 AM EDT 11/28/2024 10:23 AM EDT [facility] Karly Sudeep DO LAB URINE ORDERABLES Final Res ult Performing Organization Address City/[facility]/ZIP Co de Phone Number [facility] [address] [place] [address], [place] [phone] * Osmolality, urine (11/28/2024 10:17 AM EDT) Only the most recent of5 resultswithin the time period is included. Osmolality, Urine 405 50 - 1,200 mOsm/kg LAB CHEMISTRY METHOD 11/28/2024 10:33 AM EDT [facility] Urine Urine specimen obtained by clean catch procedure / Unknown Non-blood Collection / Unknown 11/28/2024 10:17 AM EDT 11/28/2024 10:23 AM EDT [employer] LAB URINE ORDERABLES Final Res ult Performing Organization Address [facility] Co de Phone Number [facility] [address] [place] [address], [place] [phone] * Creatinine, urine, random (11/28/2024 10:17 AM EDT) Only the most recent of4 resultswithin the time period is included. Creatinine, Urine 63.4 mg/dL LAB CHEMISTRY METHOD 11/28/2024 10:52 AM EDT [facility] Urine Urine specimen obtained by clean catch procedure / Unknown Non-blood Collection / Unknown 11/28/2024 10:17 AM EDT 11/28/2024 10:23 AM EDT Narrative [facility] - 11/28/2024 10:52 AM EDT No reference range has been established for this assay (test result). [employer] LAB URINE ORDERABLES Final Res ult Performing Organization Address City/[facility]/ZIP Co de Phone Number [facility] [address] [place] [address], [place] [phone] * (ABNORMAL) Basic metabolic panel (11/28/2024 5:30 AM EDT) Only the most recent of17 resultswithin the time period is included. Sodium 134(L) 135 - 145 mmol/L LAB CHEMISTRY METHOD 11/28/2024 6:03 AM [facility] Potassium 4.9 3.5 - 5.1 mmol/L LAB CHEMISTRY METHOD 11/28/2024 6:03 AM [facility] Chloride 102 98 - 107 mmol/L LAB CHEMISTRY METHOD 11/28/2024 6:03 AM [facility] CO2 22(L) 24 - 32 mmol/L LAB CHEMISTRY METHOD 11/28/2024 6:03 AM [facility] Anion Gap 10 5 - 14 LAB CHEMISTRY METHOD 11/28/2024 6:03 AM [facility] Glucose 152 70 - 199 mg/dL LAB CHEMISTRY METHOD 11/28/2024 6:03 AM [facility] BUN 64(H) 9 - 20 mg/dL LAB CHEMISTRY METHOD 11/28/2024 6:03 AM [facility] Creatinine 1.80(H) 0.70 - 1.30 mg/dL LAB CHEMISTRY METHOD 11/28/2024 6:03 AM [facility] eGFR 44(L) >=60 mL/min/1. 73m2 LAB CHEMISTRY METHOD 11/28/2024 6:03 AM [facility] Comment:Calculation based on the Chronic Kidney Disease Epidemiology Collaboration (CKD-EPI) equation refit without adjustment for race. BUN/Creatinine Ratio 35.6(H) 12.0 - 20.0 LAB CHEMISTRY METHOD 11/28/2024 6:03 AM [facility] Calcium 9.0 8.4 - 10.2 mg/dL LAB CHEMISTRY METHOD 11/28/2024 6:03 AM [facility] Blood Blood sample taken from central line / Unknown Venipuncture / Unknown 11/28/2024 5:30 AM EDT 11/28/2024 5:37 AM EDT Noel Sheets LAB BLOOD ORDERABLES Final Res ult Performing Organization Address City/[facility]/ZIP Co de Phone Number [facility] [address] [place] [address], [place] [phone] * ECG 12 lead (11/27/2024 9:08 PM EDT) Only the most recent of5 resultswithin the time period is included. Ventricular Rate ECG 89 BPM GEMUSE Atrial Rate 89 BPM GEMUSE P-R Interval 192 ms GEMUSE QRS Duration 106 ms GEMUSE Q-T Interval 382 ms GEMUSE QTc 464 ms GEMUSE P Wave Waverly 45 degrees GEMUSE R Waverly 17 degrees GEMUSE T Waverly 50 degrees GEMUSE ECG Interpretation Normal sinus rhythm Normal ECG Confirmed by An Willoughby ([id number]) on 11/29/2024 8:53:54 AM GEMUSE 11/27/2024 9:08 PM EDT 11/29/2024 8:53 AM EDT Noel Sheets [employer]. ECG ORDERABLES Final Result Performing Organization Address [facility] Co de Phone Number GEMUSE * (ABNORMAL) Potassium (11/27/2024 7:54 PM EDT) [facility] Potassium 5.8(H) 3.5 - 5.1 mmol/L LAB CHEMISTRY METHOD 11/27/2024 8:23 PM EDT [facility] Blood Blood sample taken from central line / Unknown Venipuncture / Unknown 11/27/2024 7:54 PM EDT 11/27/2024 7:57 PM EDT Noel Sheets [employer]. LAB BLOOD ORDERABLES Final Res ult Performing Organization Address City/[facility]/ZIP Co de Phone Number [facility] [address] [place] [address], [place] [phone] * (ABNORMAL) Complete blood count (11/27/2024 4:49 AM EDT) Only the most recent of5 resultswithin the time period is included. WBC 2.1(L) 4.0 - 10.5 K/mcL LAB HEMETOLOGY METHOD 11/27/2024 5:13 AM EDT [facility] RBC 2.71(L) 4.70 - 6.00 M/mcL LAB HEMETOLOGY METHOD 11/27/2024 5:13 AM EDT [facility] Hemoglobin 7.4(L) 13.5 - 18.0 g/dL LAB HEMETOLOGY METHOD 11/27/2024 5:13 AM EDT [facility] Hematocrit 22.8(L) 40.0 - 54.0 % LAB HEMETOLOGY METHOD 11/27/2024 5:13 AM EDT [facility] MCV 84.4 78.0 - 100.0 FL LAB HEMETOLOGY METHOD 11/27/2024 5:13 AM EDT [facility] MCH 27.5 25.0 - 33.0 pcg LAB HEMETOLOGY METHOD 11/27/2024 5:13 AM EDT [facility] MCHC 32.5 32.0 - 36.0 g/dL LAB HEMETOLOGY METHOD 11/27/2024 5:[facility] RDW 17.1 12.1 - 17.7 % LAB HEMETOLOGY METHOD 11/27/2024 5:13 AM EDT [facility] Platelets 85(L) 150 - 450 K/mcL LAB HEMETOLOGY METHOD 11/27/2024 5:13 AM EDT [facility] MPV 7.4 7.4 - 11.4 FL LAB HEMETOLOGY METHOD 11/27/2024 5:13 AM EDT [facility] Blood Venous blood specimen / Unknown Venipuncture / Unknown 11/27/2024 4:49 AM EDT 11/27/2024 5:06 AM EDT us Niraj Browne MD LAB BLOOD ORDERABLES Final Resu lt [facility] [address] [place] [address], [place] [phone] * Phosphorus (11/27/2024 4:49 AM EDT) Only the most recent of4 resultswithin the time period is included. Phosphorus 4.5 2.5 - 4.5 mg/dL LAB CHEMISTRY METHOD 11/27/2024 5:36 AM EDT [facility] Blood Venous blood specimen / Unknown Venipuncture / Unknown 11/27/2024 4:49 AM EDT 11/27/2024 5:06 AM EDT us Niraj Browne MD LAB BLOOD ORDERABLES Final Resu lt Performing Organization Address City/[facility]/ZIP Co de Phone Number [facility] [address] [place] [address], [place] [phone] * Magnesium (11/27/2024 4:49 AM EDT) Only the most recent of9 resultswithin the time period is included. Magnesium 1.8 1.7 - 2.8 mg/dL LAB CHEMISTRY METHOD 11/27/2024 5:36 AM EDT [facility] Blood Venous blood specimen / Unknown Venipuncture / Unknown 11/27/2024 4:49 AM EDT 11/27/2024 5:06 AM EDT us Niraj Browne MD LAB BLOOD ORDERABLES Final Resu lt [facility] [address] [place] [address], [place] [phone] * Uric acid (11/26/2024 5:56 AM EDT) Uric Acid 7.0 3.5 - 8.5 mg/dL LAB CHEMISTRY METHOD 11/26/2024 11:02 AM EDT [facility] Blood Venous blood specimen / Unknown Venipuncture / Unknown 11/26/2024 5:56 AM EDT 11/26/2024 6:03 AM EDT us Noel Sheets DO LAB BLOOD ORDERABLES Final Res ult Performing Organization Address City/[facility]/ZIP Co de Phone Number [facility] [address] [place] [address], [place] [phone] * (ABNORMAL) Sodium (11/25/2024 10:59 AM EDT) Only the most recent of2 resultswithin the time period is included. Sodium 122(L) 135 - 145 mmol/L LAB CHEMISTRY METHOD 11/25/2024 12:40 PM EDT [facility] Blood Venous blood specimen / Unknown Venipuncture / Unknown 11/25/2024 10:59 AM EDT 11/25/2024 11:59 AM EDT us Niraj Browne MD LAB BLOOD ORDERABLES Final Resu lt Performing Organization Address [facility] Co de Phone Number [facility] [address] [place] [address], * Thyroid stimulating hormone with reflex free T4 (11/25/2024 5:36 AM EDT) Only the most recent of2 resultswithin the time period is included. TSH 3.61 0.45 - 5.33 mcIU/mL LAB CHEMISTRY METHOD 11/25/2024 6:29 AM EDT [facility] Blood Venous blood specimen / Unknown Venipuncture / Unknown 11/25/2024 5:36 AM EDT 11/25/2024 5:41 AM EDT us Niraj Browne MD LAB BLOOD ORDERABLES Final Resu lt [facility] [address] [place] [address], [place] [phone] * Cortisol (11/25/2024 5:36 AM EDT) Cortisol 3.8 3.0 - 23.0 mcg/dL LAB CHEMISTRY METHOD 11/25/2024 6:24 AM EDT [facility] Blood Venous blood specimen / Unknown Venipuncture / Unknown 11/25/2024 5:36 AM EDT 11/25/2024 5:40 AM EDT us Niraj Browne MD LAB BLOOD ORDERABLES Final Resu lt Performing Organization Address City/[facility]/ZIP Co de Phone Number [facility] [address] [place] [address], [place] [phone] * (ABNORMAL) Urinalysis with reflex microscopic (11/24/2024 4:53 PM EDT) Color, Urine Yellow Yellow, Colorless LAB URINALYSIS - AUTOMATED METHOD 11/24/2024 5:21 PM EDT [facility] Clarity, Urine Clear Clear LAB URINALYSIS - AUTOMATED METHOD 11/24/2024 5:21 PM EDT [facility] Specific [place] Urine 1.005 1.005 - 1.030 LAB URINALYSIS - AUTOMATED METHOD 11/24/2024 5:21 PM EDT [facility] pH, Urine 7.0 5.0 - 8.0 pH LAB URINALYSIS - AUTOMATED METHOD 11/24/2024 5:21 PM EDT [facility] Leukocytes, Urine Negative Negative WBCs/mcL LAB URINALYSIS - AUTOMATED METHOD 11/24/2024 5:21 PM EDT [facility] Nitrite, Urine Negative Negative LAB URINALYSIS - AUTOMATED METHOD 11/24/2024 5:21 PM EDT [facility] Protein, Urine Negative Negative mg/dL LAB URINALYSIS - AUTOMATED METHOD 11/24/2024 5:21 PM EDT [facility] Glucose, Urine Negative Negative mg/dL LAB URINALYSIS - AUTOMATED METHOD 11/24/2024 5:21 PM EDT [facility] Ketones, Urine Negative Negative mg/dL LAB URINALYSIS - AUTOMATED METHOD 11/24/2024 5:21 PM EDT [facility] Blood, Urine Large(A) Negative mg/dL LAB URINALYSIS - AUTOMATED METHOD 11/24/2024 5:21 PM EDT [facility] RBC, Urine 7(H) 0 - 3 /HPF LAB URINALYSIS - AUTOMATED METHOD 11/24/2024 5:21 PM EDT [facility] WBC, Urine 1 0 - 5 /HPF LAB URINALYSIS - AUTOMATED METHOD 11/24/2024 5:21 PM EDT [facility] Squamous Epithelial, Urine 6(H) 0 - 5 /HPF LAB URINALYSIS - AUTOMATED METHOD 11/24/2024 5:21 PM EDT [facility] Urine Urine specimen obtained by clean catch procedure / Unknown Non-blood Collection / Unknown 11/24/2024 4:53 PM EDT 11/24/2024 5:05 PM EDT us Portillo Altman MD LAB URINE ORDERABLES Final Resu lt [facility] [address] [place] [address], [place] [phone] * (ABNORMAL) Osmolality (11/24/2024 12:09 PM EDT) Osmolality Ruthann 262(L) 275 - 295 mOsm/kg LAB CHEMISTRY METHOD 11/24/2024 12:55 PM EDT [facility] Blood Venous blood specimen / Unknown Venipuncture / Unknown 11/24/2024 12:09 PM EDT 11/24/2024 12:16 PM EDT Portillo Altman MD LAB BLOOD ORDERABLES Final Resu lt Performing Organization Address [facility]/ZIP Co de Phone Number [facility] [address] [place] [address], [place] [phone] * (ABNORMAL) Iron and TIBC (11/23/2024 10:06 AM EDT) Iron 75 49 - 181 mcg/dL LAB CHEMISTRY METHOD 11/23/2024 3:48 PM EDT [facility] UIBC 352 155 - 355 mcg/dL LAB CHEMISTRY METHOD 11/23/2024 3:48 PM EDT [facility] TIBC 427 250 - 450 mcg/dL LAB CHEMISTRY METHOD 11/23/2024 3:48 PM EDT [facility] Iron Saturation 18(L) 20 - 45 % LAB CHEMISTRY METHOD 11/23/2024 3:48 PM EDT [facility] Blood Venous blood specimen / Unknown Venipuncture / Unknown 11/23/2024 10:06 AM EDT 11/23/2024 10:09 AM EDT Velma Gonzalez NP LAB BLOOD ORDERABLES Final Re sult Performing Organization Address City/[facility]/ZIP Co de Phone Number [facility] [address] [place] [address], [place] [phone] * Ferritin (11/23/2024 10:06 AM EDT) Only the most recent of2 resultswithin the time period is included. Ferritin 67 20 - 250 ng/mL LAB CHEMISTRY METHOD 11/23/2024 3:49 PM EDT [facility] Blood Venous blood specimen / Unknown Venipuncture / Unknown 11/23/2024 10:06 AM EDT 11/23/2024 10:09 AM EDT Velma Gonzalez NP LAB BLOOD ORDERABLES Final Re sult [facility] [address] [place] [address], [place] [phone] * Transfuse RBC (11/12/2024 4:27 PM EDT) Only the most recent of7 resultswithin the time period is included. [facility] BLOOD TRANSFUSION ORDERABLES F inal Result * Prepare RBC: 1 Units (11/12/2024 6:59 AM EDT) Only the most recent of6 resultswithin the time period is included. [facility] Signature Product Code [id number] 11/14/2024 4:24 AM EDT [facility] Unit Number [id number] 11/15/19 4:24 AM EDT [facility] Crossmatch Compatible 11/12/2024 7:37 AM EDT [facility] Dispense Status Presumed Transfused 11/14/2024 4:24 AM EDT [facility] Unit ABO Rh APOS 11/14/2024 4:24 AM EDT [facility] Unit Expiration Date Time [id number] 11/14/2024 4:24 AM EDT [facility] Unit Blood Type 6200 11/14/2024 4:24 AM EDT [facility] Blood Venous blood specimen / Unknown 11/12/2024 6:59 AM EDT 11/10/2024 2:11 PM EDT [facility] BLOOD BANK PRODUCT ORDERABLES Final Result [facility] [address] [place] [address], [place] [phone] * GLUCOSE MONITORING CONTINUOUS (11/11/2024 4:16 PM EDT) Arley Provider IN CLINIC/BEDSIDE ORDERAB LES Final Result * Vitamin D 25 hydroxy (11/10/2024 2:07 PM EDT) Vit D, 25-Hydroxy 63.3 30.0 - 100.0 ng/mL LAB CHEMISTRY METHOD 11/10/2024 7:33 PM EDT [facility] Blood Venous blood specimen / Unknown Venipuncture / Unknown 11/10/2024 2:07 PM EDT 11/10/2024 2:10 PM EDT Narrative [facility] - 11/10/2024 7:33 PM EDT Vitamin D Reference Range ng/ml Deficiency <10 Insufficiency 10-30 Sufficiency 30-100 Toxicity >100 Dhaval Bradley MD LAB BLOOD ORDERABLES Final Resul t [facility] [address] [place] [address], * (ABNORMAL) TRANSTHORACIC ECHOCARDIOGRAM (TTE) COMPLETE (11/02/2024 12:07 PM EDT) BSA 2.22 m2 CV PACS Est. RA Pressure 3 mmHg CV PACS LV EDV (A2C) 142 mL CV PACS LV EDV (A4C) 200 mL CV PACS LV Diastolic Volume (BP) 171(A) 62 - 150 mL CV PACS LV ESV (A2C) 49 mL CV PACS LV ESV (A4C) 74 mL CV PACS LV Systolic Volume (BP) 60 21 - 61 mL CV PACS IVSD 0.9 0.6 - 1.0 cm CV PACS LVIDD 5.8 4.2 - 5.8 cm CV PACS LVIDS 3.7 2.5 - 4.0 cm CV PACS LVOT Diameter 2.3 cm CV PACS LVOT Mean Grad 3 mmHg CV PACS LVOT Peak VTI 22.2 cm CV PACS LVOT Mean Roly 0.8 m/s CV PACS LVOT Peak Roly 1.3 m/s CV PACS LVOT Peak Gradient 7 mmHg CV PACS LVPWD 1.0 0.6 - 1.0 cm CV PACS MV E' Tissue Velocity Lateral 9 cm/s CV PACS MV E' Tissue Velocity Septal 8 cm/s CV PACS GLS -18.3 % CV PACS Ejection Fraction (A2C) 66 % CV PACS Ejection Fraction (A4C) 63 % CV PACS Ejection Fraction (BP) 65 % CV PACS LVOT Area 4.2 cm2 CV PACS LVOT Stroke Volume 92 mL CV PACS Left Atrium Minor Waverly 6.2 cm CV PACS Left Atrium Major Waverly 6.6 cm CV PACS LA Area Sys (A2C) 25 cm2 CV PACS LA Area Sys (A4C) 21 cm2 CV PACS LA Volume (BP) 69 mL CV PACS LA Size 4.0 cm CV PACS RA Area 16.4 cm2 CV PACS RA 2D Volume 42 mL CV PACS AV Peak Roly 1.4 m/s CV PACS AV Peak Gradient 8 mmHg CV PACS AV Area Peak Velocity 3.8 cm2 CV PACS Aortic Root 3.9 cm CV PACS Ascending Aorta 3.6 cm CV PACS IVC Proximal 1.7 cm CV PACS MV Deceleration Curry 5.6 m/s2 CV PACS E Wave Deceleration Time 140 119 - 242 ms CV PACS MV PHT 41 ms CV PACS MV Peak A Roly 0.58 m/s CV PACS MV Peak E Roly 0.78 m/s CV PACS MV Area PHT 5.4 cm2 CV PACS PV Peak Velocity 1.0 m/s CV PACS PV Peak Gradient 4 mmHg CV PACS RV Diastolic Basal Dimension 3.8 2.5 - 4.1 cm CV PACS RV S' 16 cm/s CV PACS TR Peak Velocity 2.15 m/s CV PACS TR Peak Gradient 18 mmHg CV PACS TAPSE 33 mm CV PACS Right Ventricular Peak Systolic Pressure 21 mmHg CV PACS LV ESV Index (A4C) 34 mL/m2 CV PACS LV EDV Index (A4C) 91 mL/m2 CV PACS E/E' Ratio Septal 10 CV PACS E/E' Ratio Averaged 9 CV PACS LVOT Stroke Index 42 mL/m2 CV PACS LA Dimension Index 2D 1.8 cm/m2 CV PACS Relative Wall Thickness ratio 0.34 CV PACS FS 36 % CV PACS LV Mass 2D 218 g CV PACS Ascending Aorta Index 1.64 cm/m2 CV PACS LVOT flow 332 mL/s CV PACS RA 2D Volume Index 19 mL/m2 CV PACS AMY Index (Pk Roly) 1.74 cm2/m2 CV PACS LVIDD Index 2.65 cm/m2 CV PACS LVIDS Index 1.69 cm/m2 CV PACS Aortic Root Index 1.78 cm/m2 CV PACS AV Velocity Ratio 0.93 CV PACS E/A Ratio 1.3 CV PACS E/E' Ratio Lateral 9 CV PACS LV Systolic Volume Index (BP) 27 mL/m2 CV PACS LV Diastolic Volume Index (BP) 78 mL/m2 CV PACS LA Volume Index (BP) 32 mL/m2 CV PACS LV Mass Index 2D 100 g/m2 CV PACS LA/Ao Ratio 1.0 CV PACS LV EDV Index (A2C) 65 mL/m2 CV PACS LV ESV Index (A2C) 22 mL/m2 CV PACS Mitral Valve E-Point Septal Separation M-Mode 1.2 0.6 - 1.0 cm CV PACS Anatomical Region Laterality Modality Ultrasound Addenda Addendum by An Willoughby MD on 11/02/2024 4:09 PM EDT Left ventricle cavity is mildly dilated. Left ventricular systolic function is in the normal range with an ejection fraction in the 55-70% range. No regional LV wall motion abnormalities noted. Left ventricle wall thickness is normal. Right ventricle cavity is normal. Right ventricular systolic function is normal. The aortic root is mildly dilated (3.9 cm). The ascending aorta is mildly dilated (3.6 cm). Compared to the study from 12/12/23, no significant change in LVEF, cavity is mildly dilated in size. Left Ventricle Left ventricle cavity is mildly dilated. Wall thickness is normal. Systolic function is normal with an ejection fraction in the 55-70% range. LV global longitudal strain is normal. Global longitudinal strain is -18.3%. There are no regional LV wall motion abnormalities. There is no diastolic dysfunction. Right Ventricle Right ventricle cavity appears normal. Systolic function is normal. Normal TAPSE (> 17 mm). Normal systolic excursion velocity by TDI (>9.5 cm/s). Left Atrium Left atrium cavity size is normal. Left atrium volume index is normal. Right Atrium Right atrium cavity is normal. IVC/SVC Inferior vena cava structure is normal. RA pressures is estimated to be 3 mmHg (IVC diameter <21 mm and decreases >50% during inspiration). Mitral Valve Mitral valve structure is normal. There is no regurgitation or stenosis. Tricuspid Valve Tricuspid valve structure is normal. There is trace regurgitation. There is no evidence of tricuspid valve stenosis. The RVSP is estimated at 21 mmHg. Aortic Valve The aortic valve is trileaflet. The leaflets are not thickened and exhibit normal excursion. There is trace regurgitation. There is no evidence of aortic valve stenosis. Pulmonic Valve The pulmonic valve was not well visualized. Visualized portions of the pulmonic valve appear normal. There is trace pulmonic valve regurgitation. There is no evidence of pulmonic valve stenosis. Ascending Aorta The aortic root is mildly dilated (3.9 cm). The ascending aorta is mildly dilated (3.6 cm). Pericardium Pericardium appears normal. There is no pericardial effusion. Study Details Overall the study quality was good. Additional technique includes myocardial strain. The underlying ECG rhythm was sinus rhythm. [employer] [facility] CV ECHO PROCEDURES Edited Result - Final * (ABNORMAL) Vitamin B12 and folate (11/02/2024 11:08 AM EDT) Vitamin B-12 2,079(H) 180 - 914 pcg/mL LAB CHEMISTRY METHOD 11/02/2024 1:04 PM EDT [facility] Folate 9.0 >=3.0 ng/ml LAB CHEMISTRY METHOD 11/02/2024 1:04 PM EDT [facility] Blood Venous blood specimen / Unknown Venipuncture / Unknown 11/02/2024 11:08 AM EDT 11/02/2024 11:30 AM EDT [employer] LAB BLOOD ORDERABLES Final Resul t Performing Organization Address City/[facility]/ZIP Co de Phone Number [facility] [address] [place] [address], * (ABNORMAL) GGT (11/02/2024 7:19 AM EDT) GGT 152(H) 15 - 73 unit/L LAB CHEMISTRY METHOD 11/02/2024 9:28 AM EDT [facility] Blood Venous blood specimen / Unknown Venipuncture / Unknown 11/02/2024 7:19 AM EDT 11/02/2024 8:54 AM EDT Michael Davis MD LAB BLOOD ORDERABLES Final Resul t Performing Organization Address [facility]/ZIP Co de Phone Number [facility] [address] [place] [address], * (ABNORMAL) Hepatic function panel (11/02/2024 7:19 AM EDT) ALT (SGPT) 7 7 - 52 unit/L LAB CHEMISTRY METHOD 11/02/2024 9:28 AM EDT [facility] AST (SGOT) 14 5 - 40 unit/L LAB CHEMISTRY METHOD 11/02/2024 9:28 AM EDT [facility] Alkaline Phosphatase 130(H) 34 - 104 unit/L LAB CHEMISTRY METHOD 11/02/2024 9:28 AM EDT [facility] Bilirubin, Direct 0.5(H) 0.0 - 0.2 mg/dL LAB CHEMISTRY METHOD 11/02/2024 9:28 AM EDT [facility] Total Bilirubin 1.3(H) 0.3 - 1.0 mg/dL LAB CHEMISTRY METHOD 11/02/2024 9:28 AM EDT [facility] Total Protein 5.2(L) 6.4 - 8.5 g/dL LAB CHEMISTRY METHOD 11/02/2024 9:28 AM EDT [facility] Albumin 2.9(L) 3.5 - 5.0 g/dL LAB CHEMISTRY METHOD 11/02/2024 9:28 AM EDT [facility] Globulin, Total 2.3 2.3 - 3.5 g/dL LAB CHEMISTRY METHOD 11/02/2024 9:28 AM EDT [facility] A/G Ratio 1.3 LAB CHEMISTRY METHOD 11/02/2024 9:28 AM EDT [facility] Blood Venous blood specimen / Unknown Venipuncture / Unknown 11/02/2024 7:19 AM EDT 11/02/2024 8:54 AM EDT us Michael Davis MD LAB BLOOD ORDERABLES Final Resul t [facility] [address] [place] [address], [place] [phone] * (ABNORMAL) Lipid panel (11/02/2024 7:19 AM EDT) Cholesterol 83 0 - 200 mg/dL LAB CHEMISTRY METHOD 11/02/2024 9:28 AM EDT [facility] Triglycerides 93 <150 mg/dL LAB CHEMISTRY METHOD 11/02/2024 9:28 AM EDT [facility] HDL 19(L) 32 - 70 mg/dL LAB CHEMISTRY METHOD 11/02/2024 9:28 AM EDT [facility] LDL Calculated 45(L) 50 - 130 mg/dL LAB CHEMISTRY METHOD 11/02/2024 9:28 AM EDT [facility] VLDL Cholesterol Joseph 18.6 mg/dL LAB CHEMISTRY METHOD 11/02/2024 9:28 AM EDT [facility] Comment:No established refer ence range. Blood Venous blood specimen / Unknown Venipuncture / Unknown 11/02/2024 7:19 AM EDT 11/02/2024 8:54 AM EDT Colette Cummings MD LAB BLOOD ORDERABLES Final Resul t [facility] [address] [place] [address], [place] [phone] * CT Head wo Contrast (11/01/2024 6:38 PM EDT) Anatomical Region Laterality Modality Head and Neck Computed Tomogra phy 11/01/2024 7:03 PM EDT Impressions 11/01/2024 7:08 PM EDT Impression: 1. No acute intracranial process 2. Chronic changes as above. Report reviewed and signed by : Dr. Rosalind Vale MD on 11/01/2024 7:08 PM. Workstation Name - [id number] -------- FINAL REPORT -------- Dictated By: Rosalind Vale Dictated Date: 11/01/2024 19:03 ET Assigned Physician: Rosalind Vale Reviewed and Electronically Signed By: Rosalind Vale Signed Date: 11/01/2024 19:08 ET Workstation ID: [id number] Transcribed By: Self Edit Transcribed Date: 11/01/2024 19:03 ET Narrative 11/01/2024 7:[address] head Comparison:CT head from 05/17/2024 Clinical history: Dizziness, non-specific Technique: Multiple, noncontrasted axial CT images were obtained from the skull base to the cranial vertex. Findings: There are no abnormal intra or extra-axial fluid collection, midline shift or mass effect. Lam-white differentiation is well-preserved. The ventricular system is prominent commensurate with the degree of volume loss for patient's stated age. Periventricular and supraventricular white matter hypodensity is present, nonspecific in appearance but most likely representing microvascular ischemic changes. Atherosclerotic calcification is present within the carotid siphons. The paranasal sinuses and mastoid air cells are clear. Procedure Note Rosalind Vale MD - 11/01/2024 CT head Comparison:CT head from 05/17/2024 Clinical history: Dizziness, non-specific Technique: Multiple, noncontrasted axial CT images were obtained from theskull base to the cranial vertex. Findings: There are no abnormal intra or extra-axial fluid collection, midline shiftor mass effect. Lam-white differentiation is well-preserved. Theventricular system is prominent commensurate with the degree of volumeloss for patient's stated age. Periventricular and supraventricular white matter hypodensity is present,nonspecific in appearance but most likely representing microvascularischemic changes. Atherosclerotic calcification is present within thecarotid siphons. The paranasal sinuses and mastoid air cells are clear. IMPRESSION: Impression: 1. No acute intracranial process 2. Chronic changes as above. Report reviewed and signed by : Dr. Rosalind Vale MD on 11/01/2024 7:08PM. Workstation Name - [id number] -------- FINAL REPORT -------- Dictated By: Rosalind Vale Dictated Date: 11/01/2024 19:03 ET Assigned Physician: Rosalind Vale Reviewed and Electronically Signed By: Rosalind Vale Signed Date: 11/01/2024 19:08 ET Workstation ID: [id number] Transcribed By: Self Edit Transcribed Date: 11/01/2024 19:03 ET us Colette Cummings MD IMG CT PROCEDURES Final Result * Activated Partial Thromboplastin Time - STAT (11/01/2024 6:29 PM EDT) aPTT 34.0 25.0 - 37.0 sec LAB COAGULATION METHOD 11/01/2024 7:11 PM EDT [facility] Blood Venous blood specimen / Unknown Venipuncture / Unknown 11/01/2024 6:29 PM EDT 11/01/2024 6:44 PM EDT us Colette Cummings MD LAB BLOOD ORDERABLES Final Resul t [facility] [address] [place] [address], [place] [phone] * (ABNORMAL) Prothrombin Time with INR - STAT (11/01/2024 6:29 PM EDT) [facility] Protime 15.0(H) 10.5 - 13.3 sec LAB COAGULATION METHOD 11/01/2024 7:11 PM EDT [facility] INR 1.3(H) 0.8 - 1.1 LAB COAGULATION METHOD 11/01/2024 7:11 PM EDT [facility] Blood Venous blood specimen / Unknown Venipuncture / Unknown 11/01/2024 6:29 PM EDT 11/01/2024 6:44 PM EDT Narrative [facility] - 11/01/2024 7:11 PM EDT Std. Therapy 2.0-3.0 INR High Dose Therapy 3.0-4.5 INR Ranges may vary depending on clinical indications and protocol. us Colette Cummings MD LAB BLOOD ORDERABLES Final Resul t [facility] [address] [place] [address], * (ABNORMAL) Troponin I high sensitivity (11/01/2024 3:00 PM EDT) Only the most recent of2 resultswithin the time period is included. [facility] High Sensitivity Troponin I 58(H) 0 - 20 ng/L LAB CHEMISTRY METHOD 11/01/2024 4:12 PM EDT [facility] Blood Venous blood specimen / Unknown Venipuncture / Unknown 11/01/2024 3:00 PM EDT 11/01/2024 3:35 PM EDT Narrative [facility] - 11/01/2024 4:12 PM EDT HSTnI results stratify to HIGH RISK category if any value >100 ng/L or delta at 1 hour is greater than or equal to 15 ng/L (male and female). Note: Delta values are not applicable if symptoms began more than 12 hours pre-arrival. Risk stratification should include the calculation of the HEART score. The testing method is an immunoenzymatic assay manufactured by [employer] and performed on the [employer] DxI 800. us Rios Betancourt MD LAB BLOOD ORDERABLES Final Resu lt [facility] [address] [place] [address], [place] [phone] * CT Angio Chest wo and/or w Contrast (11/01/2024 9:57 AM EDT) Anatomical Region Laterality Modality Body Computed Tomogra phy 11/01/2024 11:1 3 AM EDT Impressions 11/01/2024 11:20 AM EDT 1. Cirrhosis with splenomegaly and small ascites, consistent with portal venous hypertension. 2. Aortic and coronary atherosclerosis. 3. No evidence of pulmonary embolism. Report reviewed and signed by : Dr. Kristal Dennison on 11/01/2024 11:20 AM. Workstation Name - [id number] -------- FINAL REPORT -------- Dictated By: Kristal Dennison Dictated Date: 11/01/2024 11:13 ET Assigned Physician: Kristal Dennison Reviewed and Electronically Signed By: Kristal Dennison Signed Date: 11/01/2024 11:20 ET Workstation ID: [id number] Transcribed By: Self Edit Transcribed Date: 11/01/2024 11:13 ET Narrative 11/01/2024 11:[address] ANGIOGRAM OF THE CHEST WITH IV CONTRAST CLINICAL HISTORY: PE suspected, low/intermediate prob, positive D-dimer TECHNIQUE: Serial axial images obtained. Sagittal reconstructed images obtained. Coronal reconstructed images obtained. Post-image processing, MIPs were performed. Per PQRS, CT exam is performed using one or more of the following dose reduction techniques: Automated exposure control, adjustment of the mA and/or KV according to patient size, or use of iterative reconstruction techniques. COMPARISON: 05/17/2024 FINDINGS: HEART: Coronary artery calcifications. THYROID: Unremarkable. VASCULATURE: Aortic atherosclerosis. Post-contrast appearance of the pulmonary arteries shows no evidence for filling defect. Negative for aortic aneurysm or aortic dissection. There is normal caliber of the pulmonary artery trunk in relation to the aorta. THORAX: No suspicious pulmonary nodule or consolidation, and no pneumothorax or pleural effusion. CHEST WEINSTEIN: Appearance is unremarkable. ESOPHAGUS: Appearance is unremarkable. UPPER ABDOMEN: Cirrhosis. Small volume ascites. Enlarged spleen measuring up to 16.8 cm in the craniocaudal dimension. BONES: No suspicious osseous lesion. Mild degenerative changes of the spine. Old right 4th rib fracture. Procedure Note Kristal Dennison MD - 11/01/2024 CT ANGIOGRAM OF THE CHEST WITH IV CONTRAST CLINICAL HISTORY: PE suspected, low/intermediate prob, positive D-dimer TECHNIQUE: Serial axial images obtained. Sagittal reconstructed images obtained. Coronal reconstructed images obtained. Post-image processing, MIPs wereperformed. Per PQRS, CT exam is performed using one or more of the following dosereduction techniques: Automated exposure control, adjustment of the mAand/or KV according to patient size, or use of iterative reconstructiontechniques. COMPARISON: 05/17/2024 FINDINGS: HEART: Coronary artery calcifications. THYROID: Unremarkable. VASCULATURE: Aortic atherosclerosis. Post-contrast appearance of the pulmonary arteries shows no evidence forfilling defect. Negative for aortic aneurysm or aortic dissection. There is normal caliber of the pulmonary artery trunk in relation to theaorta. THORAX: No suspicious pulmonary nodule or consolidation, and nopneumothorax or pleural effusion. CHEST WEINSTEIN: Appearance is unremarkable. ESOPHAGUS: Appearance is unremarkable. UPPER ABDOMEN: Cirrhosis. Small volume ascites. Enlarged spleen measuringup to 16.8 cm in the craniocaudal dimension. BONES: No suspicious osseous lesion. Mild degenerative changes of thespine. Old right 4th rib fracture. IMPRESSION: 1. Cirrhosis with splenomegaly and small ascites, consistent with portalvenous hypertension. 2. Aortic and coronary atherosclerosis. 3. No evidence of pulmonary embolism. Report reviewed and signed by : Dr. Kristal Dennison on 11/01/2024 11:20 AM.Workstation Name - [id number] -------- FINAL REPORT -------- Dictated By: Kristal Dennison Dictated Date: 11/01/2024 11:13 ET Assigned Physician: Kristal Dennison Reviewed and Electronically Signed By: Kristal Dennison Signed Date: 11/01/2024 11:20 ET Workstation ID: [id number] Transcribed By: Self Edit Transcribed Date: 11/01/2024 11:13 ET us Rios Betancourt MD IMG CT PROCEDURES Final Result * Ethanol (11/01/2024 9:38 AM EDT) Ethanol Level <10 0 - 10 mg/dL LAB CHEMISTRY METHOD 11/01/2024 10:26 AM EDT [facility] Blood Venous blood specimen / Unknown Venipuncture / Unknown 11/01/2024 9:38 AM EDT 11/01/2024 9:44 AM EDT Narrative [facility] - 11/01/2024 10:26 AM EDT Medical Purpose Results of this test are to be used for medical purposes only us Rios Betancourt MD LAB BLOOD ORDERABLES Final Resu lt Performing Organization Address City/[facility]/ZIP Co de Phone Number [facility] [address] [place] [address], [place] [phone] * (ABNORMAL) B-type natriuretic peptide (11/01/2024 8:22 AM EDT) BNP 434(H) 0 - 100 pcg/mL LAB CHEMISTRY METHOD 11/01/2024 9:01 AM EDT [facility] Blood Venous blood specimen / Unknown Venipuncture / Unknown 11/01/2024 8:22 AM EDT 11/01/2024 8:25 AM EDT us Rios Betancourt MD LAB BLOOD ORDERABLES Final Resu lt [facility] [address] [place] [address], [place] [phone] * (ABNORMAL) Hemoglobin and hematocrit (10/07/2024 5:18 AM EDT) Only the most recent of4 resultswithin the time period is included. Hemoglobin 7.7(L) 13.5 - 18.0 g/dL LAB HEMETOLOGY METHOD 10/07/2024 5:31 AM EDT [facility] Hematocrit 23.2(L) 40.0 - 54.0 % LAB HEMETOLOGY METHOD 10/07/2024 5:31 AM EDT [facility] Blood Venous blood specimen / Unknown Venipuncture / Unknown 10/07/2024 5:18 AM EDT 10/07/2024 5:24 AM EDT Macie Evans MD LAB BLOOD ORDERABLES Final Re sult [facility] [address] [place] [address], [place] [phone] * Vascular US duplex lower extremity venous bilateral (10/06/2024 9:26 AM EDT) Anatomical Region Laterality Modality Vascular, Abdomen Ultrasound 10/06/2024 9:41 AM EDT Impressions 10/06/2024 9:43 AM EDT 1. 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 2. No other deep vein thrombosis bilaterally. 3. Small bilateral Lopez's cyst/fluid. Report reviewed and signed by : Dr. Marcel Alanis on 10/06/2024 9:43 AM. Workstation Name - [id number] -------- FINAL REPORT -------- Dictated By: Marcel Alanis Dictated Date: 10/06/2024 09:41 ET Assigned Physician: Marcel Alanis Reviewed and Electronically Signed By: Marcel Alanis Signed Date: 10/06/2024 09:43 ET Workstation ID: [id number] Transcribed By: Self Edit Transcribed Date: 10/06/2024 09:41 ET Narrative 10/06/2024 9:43 AM EDT BILATERAL LOWER EXTREMITY VENOUS DUPLEX ULTRASOUND DATE OF SERVICE: 10/06/2024 8:35 AM. HISTORY: DWIGHT AMATO is a 54 years-old Male with pain in extremities. COMPARISON: None. TECHNIQUE: Bilateral lower extremity venous duplex ultrasound was performed utilizing grayscale, color and spectral Doppler, transverse compression, and augmentation techniques. FINDINGS: There is chronic eccentric nonocclusive mural thrombus in the upper right femoral vein without superimposed acute deep vein thrombosis. The remaining bilateral femoropopliteal and deep calf veins are patent with normal coaptation and no evidence of thrombosis. The bilateral saphenofemoral junctions are patent. Normal respiratory phasicity is present at the iliofemoral junctions bilaterally with no evidence to suggest central venous obstruction. Small amount of fluid/fluid collections are identified in the bilateral popliteal fossa. Procedure Note Marcel Alanis MD - 10/06/2024 BILATERAL LOWER EXTREMITY VENOUS DUPLEX ULTRASOUND DATE OF SERVICE: 10/06/2024 8:35 AM. HISTORY: DWIGHT AMATO is a 54 years-old Male with pain inextremities. COMPARISON: None. TECHNIQUE: Bilateral lower extremity venous duplex ultrasound wasperformed utilizing grayscale, color and spectral Doppler, transversecompression, and augmentation techniques. FINDINGS: There is chronic eccentric nonocclusive mural thrombus in theupper right femoral vein without superimposed acute deep vein thrombosis.The remaining bilateral femoropopliteal and deep calf veins are patentwith normal coaptation and no evidence of thrombosis. The bilateralsaphenofemoral junctions are patent. Normal respiratory phasicity ispresent at the iliofemoral junctions bilaterally with no evidence tosuggest central venous obstruction. Small amount of fluid/fluid collections are identified in the bilateralpopliteal fossa. IMPRESSION: 1. Chronic nonocclusive mural thrombus in the upper right femoral veinwithout superimposed acute deep vein thrombosis. 2. No other deep vein thrombosis bilaterally. 3. Small bilateral Lopez's cyst/fluid. Report reviewed and signed by : Dr. Marcel Alanis on 10/06/2024 9:43 AM.Workstation Name - [id number] -------- FINAL REPORT -------- Dictated By: Marcel Alanis Dictated Date: 10/06/2024 09:41 ET Assigned Physician: Marcel Alanis Reviewed and Electronically Signed By: Marcel Alanis Signed Date: 10/06/2024 09:43 ET Workstation ID: [id number] Transcribed By: Self Edit Transcribed Date: 10/06/2024 09:41 ET Chai Buckner MD CV VASCULAR PROCED URES Final Result * Lactate, with reflex (10/06/2024 6:04 AM EDT) Only the most recent of2 resultswithin the time period is included. LACTIC ACID 1.2 0.5 - 2.2 mmol/L LAB BLOOD GAS METHOD 10/06/2024 6:46 AM EDT [facility] Blood Venous blood specimen / Unknown Venipuncture / Unknown 10/06/2024 6:04 AM EDT 10/06/2024 6:30 AM EDT us Casie Oneal [employer] LAB BLOOD ORDERABLES Final Res ult [facility] [address] [place] [id number], * pH, venous (10/05/2024 4:59 PM EDT) pH, Danny 7.41 7.35 - 7.45 pH LAB BLOOD GAS METHOD 10/05/2024 5:14 PM EDT [facility] Blood Venous blood specimen / Unknown Venipuncture / Unknown 10/05/2024 4:59 PM EDT 10/05/2024 5:05 PM EDT us Casie Oneal [employer] LAB BLOOD ORDERABLES Final Res ult [facility] [address] [place] [address], * Ketones, blood (10/05/2024 4:59 PM EDT) Ketone Bodies Negative Negative 10/05/2024 5:39 PM EDT [facility] Blood Venous blood specimen / Unknown Venipuncture / Unknown 10/05/2024 4:59 PM EDT 10/05/2024 5:03 PM EDT Casie Oneal [employer] LAB BLOOD ORDERABLES Final Res ult [facility] [address] [place] [address], [place] [phone] * RBC morphology review (10/05/2024 1:12 PM EDT) Only the most recent of2 resultswithin the time period is included. [facility] Polychromasia Present Occasional LAB HEMETOLOGY METHOD 10/05/2024 4:00 PM EDT [facility] Elliptocytes/Ova locytes Present Occasional LAB HEMETOLOGY METHOD 10/05/2024 4:00 PM EDT [facility] Microcytes Present Present LAB HEMETOLOGY METHOD 10/05/2024 4:00 PM EDT [facility] Tear Drop Cells Present Occasional LAB HEMETOLOGY METHOD 10/05/2024 4:00 PM EDT [facility] Platelet Estimate Platelets Appear Decreased LAB HEMETOLOGY METHOD 10/05/2024 4:00 PM EDT [facility] Blood Venous blood specimen / Unknown Venipuncture / Unknown 10/05/2024 1:12 PM EDT 10/05/2024 1:16 PM EDT us Michael Johnson MD LAB BLOOD ORDERABLES Final R esult [facility] [address] [place] [address], [place] [phone] * (ABNORMAL) Hemoglobin A1c (10/05/2024 1:12 PM EDT) Hemoglobin A1C 5.7(H) <5.7 % LAB CHEMISTRY METHOD 10/06/2024 10:20 AM EDT [facility] Mean Bld Glu Estim. 117 mg/dL LAB CHEMISTRY METHOD 10/06/2024 10:20 AM EDT [facility] Blood Venous blood specimen / Unknown Venipuncture / Unknown 10/05/2024 1:12 PM EDT 10/05/2024 1:16 PM EDT Narrative [facility] - 10/06/2024 10:20 AM EDT ADA Guidelines: Increased risk Diabetes Mellitus A1C 5.7 - 6.4% and Fasting Blood Glucose 100 - 125 mg/dl Diabetes Mellitus: A1C >6.5% and Fasting Blood Glucose >125 mg/dl Casie Oneal NP LAB BLOOD ORDERABLES Final Res ult [facility] [address] [place] [address], [place] [phone] * [place] CRITICAL CARE 30-74 MINUTES (10/05/2024 12:39 PM EDT) Narrative Michael Johnson MD - 10/05/2024 12:39 PM EDT Michael Johnson MD 10/05/2024 2:26 PM Critical Care Performed by: Michael Johnson MD Authorized by: Michael Johnson MD Critical care provider statement: Critical care time (minutes): 60 Total face to face critical care time (minutes): 60 Critical care was necessary to treat or prevent imminent or life-threatening deterioration of the following conditions: gi bleed. us Michael Johnson MD IN CLINIC/BEDSIDE ORDERABLES Final Result * Hepatitis C antibody (08/27/2024 12:32 PM EDT) Hepatitis C Antibody Negative Negative LAB CHEMISTRY METHOD 08/27/2024 11:32 PM EDT [facility] Blood Venous blood specimen / Unknown Venipuncture / Unknown 08/27/2024 12:32 PM EDT 08/27/2024 12:35 PM EDT Leonid Watson DO LAB BLOOD ORDERABLES Final R esult [facility] [address] [place] [address], [place] [phone] * Depression Screening (10/21/2023) Pathologist [facility] Depression Screening Abstracted Historical Provider MD HEALTH MAINTENANCE Final Result * Urine Albumin Creatinine Ratio (10/08/2023) Pathologist [facility] Urine Albumin Creatinine Ratio Abstracted Historical Provider MD HEALTH MAINTENANCE Final Result * Colonoscopy (11/22/2022) Colonoscopy Abstracted, No interpretation Anatomical Region Laterality Modality Other Historical Provider HEALTH MAINTENANCE Final Result from Last 3 Months or Most Recently Relevant to Health Maintenance Insurance * Guarantor: Dwight Amato Account Type Relation to Patient Date of Phone Billing Address Personal/Family Self 1970 [address] [place], [place] [id number] [place] [address] (ANTH) MEDICARE ADVANTAGE MEDICAID - [facility] (ON LICENSE OF [facility]) MEDICARE ADV[place]AGE [place]ICAID - [place] Advance Directives * Full Code - Confirmed (Latest Code Status on File) Date Activated Date Inactivated Comments 11/24/2024 6:36 PM 11/28/2024 4:44 PM This code stat us was ascertained in the following way: Code status discussion: discussion with patient To update the patient's code status, place a code status order. Do not modify or discontinue any currently active code status orders. * Full Code - Default Date Activated Date Inactivated Comments 11/24/2024 4:42 PM 11/24/2024 6:36 PM This is order is used when code status has not been discussed with the patient, or code status is otherwise unknown/unconfirmed To update the patient's code status, place a code status order. Do not modify or discontinue any currently active code status orders. * Full Code - Default Date Activated Date Inactivated Comments 11/01/2024 4:27 PM 11/02/2024 10:23 PM This is ord er is used when code status has not been discussed with the patient, or code status is otherwise unknown/unconfirmed To update the patient's code status, place a code status order. Do not modify or discontinue any currently active code status orders. * Full Code - Confirmed Date Activated Date Inactivated Comments 10/05/2024 3:51 PM 10/07/2024 1:[address] atus was ascertained in the following way: Code status discussion: discussion with patient To update the patient's code status, place a code status order. Do not modify or discontinue any currently active code status orders. * Full Code - Default Date Activated Date Inactivated Comments 10/05/2024 2:21 PM 10/05/2024 3:51 PM This is orde r is used when code status has not been discussed with the patient, or code status is otherwise unknown/unconfirmed To update the patient's code status, place a code status order. Do not modify or discontinue any currently active code status orders. Care Teams An Employee Sponsor Or Advocate And Relationship Specialty Start Date End Date Rios Sousa MD [address] [place] [address] PCP - General Family Medicine 11/24/24
--- OUTSIDE RECORDS SUMMARY | 2024-12-30 17:19 | XMS_ITS | Encounter Summary ---
Author Organization [facility]ly [facility] Address [address] [place] [id number] Care Team Providers Care Porcelain Finisher Name Role Phone Rios Sousa MD Primary Care Provider [phone] Marcia Kulkarni RN Unavailable [phone] Encounter Details Date Type Department Care Team (Late st Contact Info) Description 09/03/2018 Scanned Document [facility] [address] [place] [address] Rios Sousa MD [address] [place] [address] [facility] [address] [place] [address] Social History Tobacco Use Types Packs/Day Years [...] documented as of this encounter Care Teams Porcelain Finisher Relationship Specialty Start Date End Date Rios Sousa MD PCP - General Internal Medicine 09/03/18 Marcia Kulkarni RN [address] [place] [address] Registered Nurse 05/28/23 documented as of this encounter
--- OUTSIDE RECORDS SUMMARY | 2024-12-30 17:19 | XMS_ITS | Clinical Summary ---
Author Organization [facility] Address [address] [place] [address] Phone Care Team Providers Care Residential Treatment Staff Name Role Phone Rios Sousa MD Primary Care Provider [phone] Allergies Active Allergy Reactions Criticality Noted Date [...] (04/18/2023): Added automatically from request for surgery [id number] Hypercalcemia 09/06/2021 Boutonniere deformity of finger of [...] 50+ Ye ars (2 of 2 - PPSV23, PCV20, or PCV21) 04/22/2019 02/25/2019 Diabetes: Ophthalmology Exam 10/31/2020 Diabetes: Pedal Pulse Checked 10/31/2020 Diabetes: Sensory Foot Exam 10/31/2020 Diabetes: Visual Foot Exam 10/31/2020 Diabetes: Hemoglobin A1C 09/28/2024 025, 06/11/2022, 12/19/2021, Additional history exists Influenza Vaccine (#1) 2024 3, 01/13/2021, 01/25/2020, Additional history exists Pneumococcal Vaccine: [...] 10.8(A) 8.7 - 10.7 mg/dL eGFR Non-Afr Syrian >60 Hemoglobin A1C 6.4(A) 4.0 - 6.0 08/24/2021 Historical Provider LAB BLOOD ORDERABLES Jesenia l Result from Last 3 Months or Most Recently Relevant to Health Maintenance Insurance Medicaid [place] Medicare Care Teams Residential Treatment Staff Relationship Specialty Start Date End Date Rios Sousa MD PCP - General 05/02/20
--- OUTSIDE RECORDS SUMMARY | 2024-12-30 17:19 | XMS_ITS | Clinical Summary ---
Author Organization [facility] Address [address] [place] [address] Care Team Providers Care Product Safety Tester Name Role Phone Lucio Chow MD Primary Care Provider [phone] Allergies Active Allergy Reactions Criticality Noted Date [...] (Shingrix) (1 of 2) 2018 COVID-19 Vaccine ( - 2023-2 5 season) 2024 Influenza (#1) 2024 HPV Vaccine (No Doses Required) Completed Hep A Aged Out No longer eligi ble based on patient's age to complete this topic Hib Aged Out No longer eligi ble based on patient's age to complete this topic Meningococcal ACWY Aged Out No longer eligible based on patient's age to complete this topic Care Teams Product Safety Tester Relationship Specialty Start Date End Date Lucio Chow MD [address] [place] [address] PCP - General 11/26/22
--- OUTSIDE RECORDS SUMMARY | 2024-12-30 17:19 | XMS_ITS ---
Author Name [facility] Organization Unknown Results Test Name/Text Value Interpretation Date Range Source Albumin SerPl-mCnc 4.0 g/dL 5 3.5 - 5 [facility] BUN SerPl-mCnc 19.0 mg/dL 5 9 - 20 [facility] Glucose SerPl-mCnc 136.0 mg/dL 5 70 - 199 [facility] Calcium SerPl-mCnc 9.1 mg/dL 5 8.4 - 10.2 [facility] Sodium SerPl-sCnc 142.0 mmol/L 5 135 - 145 [facility] Bilirub SerPl-mCnc 1.1 mg/dL Above high normal 5 0.3 - 1 [facility] Potassium SerPl-sCnc 4.2 mmol/L 5 3.5 - 5.1 [facility] Creat SerPl-mCnc 1.3 mg/dL 5 0.7 - 1.3 [facility] eGFRcr SerPlBld CKD-EPI 2020 64.0 mL/min/1.73m2 5 - [facility] Prot SerPl-mCnc 6.2 g/dL Below low normal 12/29/19 2 5 6.4 - 8.5 [facility] ALP SerPl-cCnc 169.0 unit/L Above high normal 12/29/19 2 5 34 - 104 [facility] Chloride SerPl-sCnc 106.0 mmol/L 12/29/19 2 5 98 - 107 [facility] Anion Gap SerPl Calc-sCnc 11.0 5 5 - 14 [facility] CO2 SerPl-sCnc 25.0 mmol/L 5 24 - 32 [facility] ALT SerPl-cCnc 13.0 unit/L 5 7 - 52 [facility] AST SerPl-cCnc 24.0 unit/L 5 5 - 40 [facility] BUN/Creat SerPl 14.6 5 12 - 20 [facility] ABO Group Bld A 5 [facility] Rh Bld Positive 5 [facility] Bld gp Ab Scn SerPl Ql Negative 5 [facility] Basophils # Bld Auto 0.03 K/mcL 5 0 - 0.2 [facility] Lymphocytes # Bld Auto 0.62 K/mcL Below low normal 5 1 - 3.2 [facility] Basophils NFr Bld Auto 0.9 % 5 0 - 2 [facility] Monocytes NFr Bld Auto 11.0 % 5 2 - 12 [facility] RBC Auto 95.0 FL 5 78 - 100 [facility] MCHC RBC Auto-EntMCnc 30.5 g/dL Below low normal 5 32 - 36 [facility] Lymphocytes NFr Bld Auto 18.5 % Below low normal 5 20 - 48 [facility] PMV Bld Auto 11.3 FL 5 7.4 - 11.4 [facility] Monocytes # Bld Auto 0.37 K/mcL 5 0 - 0.8 [facility] Neutrophils NFr Bld Auto 62.1 % 5 44 - 74 [facility] Eosinophil NFr Bld Auto 7.2 % Above high normal 5 0 - 6 [facility] Neutrophils # Bld Auto 2.08 K/mcL 5 1.8 - 7.8 [facility] RDW RBC Auto 20.1 % Above high normal 5 12.1 - 17.7 [facility] WBC # Bld Auto 3.4 K/mcL Below low normal 5 4 - 10.5 [facility] Hgb Bld-mCnc 11.6 g/dL Below low normal 5 13.5 - 18 [facility] Platelet # Bld Auto 92.0 K/mcL Below low normal 09/0 5 150 - 450 [facility] RBC # Bld Auto 4.0 M/mcL Below low normal 5 4.7 - 6 [facility] Eosinophil # Bld Auto 0.24 K/mcL 5 0 - 0.5 [facility] Hct VFr Bld Auto 38.0 % Below low normal 02 5 40 - 54 [facility] MCH RBC Qn Auto 29.0 pcg 5 25 - 33 [facility] ABO Group Bld A 5 [facility] Rh Bld Positive 5 [facility] Bld gp Ab Scn SerPl Ql Negative 5 [facility] WBC # Bld Auto 3.0 K/mcL Below low normal 5 4 - 10.5 [facility] Basophils # Bld Auto <0.03 K/mcL 5 0 - 0.2 [facility] Basophils NFr Bld Auto 0.3 % 5 0 - 2 [facility] MCH RBC Qn Auto 28.8 pcg 5 25 - 33 [facility] Monocytes # Bld Auto 0.3 K/mcL 5 0 - 0.8 [facility] RDW RBC Auto 20.2 % Above high normal 5 12.1 - 17.7 [facility] Lymphocytes # Bld Auto 0.52 K/mcL Below low normal 5 1 - 3.2 [facility] PMV Bld Auto 11.2 FL 5 7.4 - 11.4 [facility] Eosinophil # Bld Auto 0.15 K/mcL 5 0 - 0.5 [facility] Hct VFr Bld Auto 34.8 % Below low normal 02 5 40 - 54 [facility] MCHC RBC Auto-EntMCnc 30.7 g/dL Below low normal 5 32 - 36 [facility] RBC # Bld Auto 3.72 M/mcL Below low normal 5 4.7 - 6 [facility] RBC Auto 93.5 FL 5 78 - 100 [facility] Platelet # Bld Auto 85.0 K/mcL Below low normal 09/0 5 150 - 450 [facility] Lymphocytes NFr Bld Auto 17.6 % Below low normal 5 20 - 48 [facility] Eosinophil NFr Bld Auto 5.1 % 5 0 - 6 [facility] Hgb Bld-mCnc 10.7 g/dL Below low normal 5 13.5 - 18 [facility] Neutrophils # Bld Auto 1.96 K/mcL 5 1.8 - 7.8 [facility] Monocytes NFr Bld Auto 10.2 % 5 2 - 12 [facility] Neutrophils NFr Bld Auto 66.5 % 5 44 - 74 [facility] Rh Bld Positive 5 [facility] Bld gp Ab Scn SerPl Ql Negative 5 [facility] ABO Group Bld A 5 [facility] RDW RBC Auto 21.0 % Above high normal 5 12.1 - 17.7 [facility] MCH RBC Qn Auto 28.5 pcg 5 25 - 33 [facility] Monocytes NFr Bld Auto 9.1 % 5 2 - 12 [facility] Neutrophils NFr Bld Auto 76.2 % Above high normal 5 44 - 74 [facility] Lymphocytes NFr Bld Auto 12.1 % Below low normal 5 20 - 48 [facility] Eosinophil NFr Bld Auto 2.2 % 5 0 - 6 [facility] MCHC RBC Auto-EntMCnc 31.4 g/dL Below low normal 5 32 - 36 [facility] Lymphocytes # Bld Auto 0.28 K/mcL Below low normal 5 1 - 3.2 [facility] Eosinophil # Bld Auto 0.05 K/mcL 5 0 - 0.5 [facility] Platelet # Bld Auto 95.0 K/mcL Below low normal 11/21 5 150 - 450 [facility] RBC # Bld Auto 3.09 M/mcL Below low normal 5 4.7 - 6 [facility] PMV Bld Auto 9.2 FL 5 7.4 - 11.4 [facility] RBC Auto 90.6 FL 5 78 - 100 [facility] Monocytes # Bld Auto 0.21 K/mcL 5 0 - 0.8 [facility] Basophils NFr Bld Auto 0.0 % 5 0 - 2 [facility] Hgb Bld-mCnc 8.8 g/dL Below low normal 5 13.5 - 18 [facility] Hct VFr Bld Auto 28.0 % Below low normal 02 5 40 - 54 [facility] WBC # Bld Auto 2.3 K/mcL Below low normal 5 4 - 10.5 [facility] Neutrophils # Bld Auto 1.76 K/mcL Below low normal 5 1.8 - 7.8 [facility] Basophils # Bld Auto <0.03 K/mcL 5 0 - 0.2 [facility] Bld gp Ab Scn SerPl Ql Negative 5 [facility] Rh Bld Positive 5 [facility] ABO Group Bld A 5 [facility] Monocytes # Bld Auto 0.18 K/mcL 5 0 - 0.8 [facility] Neutrophils NFr Bld Auto 68.0 % 5 44 - 74 [facility] Basophils # Bld Auto <0.03 K/mcL 5 0 - 0.2 [facility] PMV Bld Auto 8.9 FL 5 7.4 - 11.4 [facility] Platelet # Bld Auto 78.0 K/mcL Below low normal 11/20 5 150 - 450 [facility] WBC # Bld Auto 2.4 K/mcL Below low normal 5 4 - 10.5 [facility] Monocytes NFr Bld Auto 7.7 % 5 2 - 12 [facility] MCH RBC Qn Auto 27.6 pcg 5 25 - 33 [facility] Eosinophil NFr Bld Auto 6.0 % 5 0 - 6 [facility] Neutrophils # Bld Auto 1.6 K/mcL Below low normal 5 1.8 - 7.8 [facility] Hct VFr Bld Auto 25.6 % Below low normal 02 5 40 - 54 [facility] Eosinophil # Bld Auto 0.14 K/mcL 5 0 - 0.5 [facility] RBC Auto 89.5 FL 5 78 - 100 [facility] MCHC RBC Auto-EntMCnc 30.9 g/dL Below low normal 5 32 - 36 [facility] Lymphocytes # Bld Auto 0.41 K/mcL Below low normal 5 1 - 3.2 [facility] Hgb Bld-mCnc 7.9 g/dL Below low normal 5 13.5 - 18 [facility] Basophils NFr Bld Auto 0.9 % 5 0 - 2 [facility] Lymphocytes NFr Bld Auto 17.4 % Below low normal 5 20 - 48 [facility] RDW RBC Auto 17.1 % 5 12.1 - 17.7 [facility] RBC # Bld Auto 2.86 M/mcL Below low normal 5 4.7 - 6 [facility] CO2 SerPl-sCnc 21.0 mmol/L Below low normal 5 24 - 32 [facility] Bilirub SerPl-mCnc 0.9 mg/dL 5 0.3 - 1 [facility] eGFRcr SerPlBld CKD-EPI 2020 64.0 mL/min/1.73m2 5 - [facility] Calcium SerPl-mCnc 9.1 mg/dL 5 8.4 - 10.2 [facility] Chloride SerPl-sCnc 106.0 mmol/L 12/02/19 2 5 98 - 107 [facility] Creat SerPl-mCnc 1.3 mg/dL 5 0.7 - 1.3 [facility] ALT SerPl-cCnc 16.0 unit/L 5 7 - 52 [facility] Sodium SerPl-sCnc 134.0 mmol/L Below low normal 5 135 - 145 [facility] ALP SerPl-cCnc 187.0 unit/L Above high normal 12/02/19 2 5 34 - 104 [facility] AST SerPl-cCnc 23.0 unit/L 5 5 - 40 [facility] BUN SerPl-mCnc 32.0 mg/dL Above high normal 12/02/19 2 5 9 - 20 [facility] Prot SerPl-mCnc 6.2 g/dL Below low normal 12/02/19 2 5 6.4 - 8.5 [facility] Anion Gap SerPl Calc-sCnc 7.0 5 5 - 14 [facility] Glucose SerPl-mCnc 92.0 mg/dL 5 70 - 199 [facility] Albumin SerPl-mCnc 3.9 g/dL 5 3.5 - 5 [facility] BUN/Creat SerPl 24.6 Above high normal 02 5 12 - 20 [facility] Potassium SerPl-sCnc 5.1 mmol/L 5 3.5 - 5.1 [facility] Rh Bld Positive 5 [facility] Bld gp Ab Scn SerPl Ql Negative 5 [facility] ABO Group Bld A 5 [facility] RBC # Bld Auto 2.7 M/mcL Below low normal 5 4.7 - 6 [facility] Hct VFr Bld Auto 23.9 % Below low normal 02 5 40 - 54 [facility] WBC # Bld Auto 2.6 K/mcL Below low normal 5 4 - 10.5 [facility] Eosinophil NFr Bld Auto 9.5 % Above high normal 5 0 - 6 [facility] Lymphocytes NFr Bld Auto 19.8 % Below low normal 5 20 - 48 [facility] PMV Bld Auto 10.2 FL 5 7.4 - 11.4 [facility] Neutrophils NFr Bld Auto 60.8 % 5 44 - 74 [facility] Basophils NFr Bld Auto 0.8 % 5 0 - 2 [facility] Neutrophils # Bld Auto 1.6 K/mcL Below low normal 5 1.8 - 7.8 [facility] Lymphocytes # Bld Auto 0.52 K/mcL Below low normal 5 1 - 3.2 [facility] RBC Auto 88.5 FL 5 78 - 100 [facility] MCH RBC Qn Auto 27.4 pcg 5 25 - 33 [facility] Eosinophil # Bld Auto 0.25 K/mcL 5 0 - 0.5 [facility] Platelet # Bld Auto 82.0 K/mcL Below low normal 11/20 5 150 - 450 [facility] MCHC RBC Auto-EntMCnc 31.0 g/dL Below low normal 5 32 - 36 [facility] Monocytes # Bld Auto 0.23 K/mcL 5 0 - 0.8 [facility] RDW RBC Auto 15.2 % 5 12.1 - 17.7 [facility] Basophils # Bld Auto <0.03 K/mcL 5 0 - 0.2 [facility] Hgb Bld-mCnc 7.4 g/dL Below low normal 5 13.5 - 18 [facility] Monocytes NFr Bld Auto 8.7 % 5 2 - 12 [facility] Glucose Bld-mCnc 124.0 mg/dL 5 70 - 199 [facility] Creat Ur-mCnc 63.4 mg/dL 5 [facility] Sodium Ur-sCnc 49.0 mmol/L Below low normal 5 50 - 191 [facility] Potassium Ur-sCnc 17.4 mmol/L Below low normal 5 20 - 50 [facility] Osmolality Ur 405.0 mOsm/kg 5 50 - 1200 [facility] Glucose Bld-mCnc 134.0 mg/dL 5 70 - 199 [facility] Chloride SerPl-sCnc 102.0 mmol/L 11/29/19 2 5 98 - 107 [facility] Calcium SerPl-mCnc 9.0 mg/dL 5 8.4 - 10.2 [facility] Potassium SerPl-sCnc 4.9 mmol/L 5 3.5 - 5.1 [facility] Glucose SerPl-mCnc 152.0 mg/dL 5 70 - 199 [facility] eGFRcr SerPlBld CKD-EPI 2020 44.0 mL/min/1.73m2 Below low normal 5 - [facility] BUN SerPl-mCnc 64.0 mg/dL Above high normal 11/29/19 2 5 9 - 20 [facility] CO2 SerPl-sCnc 22.0 mmol/L Below low normal 5 24 - 32 [facility] Creat SerPl-mCnc 1.8 mg/dL Above high normal 5 0.7 - 1.3 [facility] Anion Gap SerPl Calc-sCnc 10.0 5 5 - 14 [facility] Sodium SerPl-sCnc 134.0 mmol/L Below low normal 5 135 - 145 [facility] BUN/Creat SerPl 35.6 Above high normal 02 5 12 - 20 [facility] Platelet # Bld Auto 78.0 K/mcL Below low normal 08/ 5 150 - 450 [facility] Neutrophils # Bld Auto 1.1 K/mcL Below low normal 5 1.8 - 7.8 [facility] RBC Auto 82.4 FL 5 78 - 100 [facility] Monocytes NFr Bld Auto 8.7 % 5 2 - 12 [facility] Hgb Bld-mCnc 7.2 g/dL Below low normal 5 13.5 - 18 [facility] MCH RBC Qn Auto 27.6 pcg 5 25 - 33 [facility] Basophils NFr Bld Auto 1.0 % 5 0 - 2 [facility] Basophils # Bld Auto 0.0 K/mcL 5 0 - 0.2 [facility] RDW RBC Auto 17.2 % 5 12.1 - 17.7 [facility] RBC # Bld Auto 2.59 M/mcL Below low normal 5 4.7 - 6 [facility] Neutrophils NFr Bld Auto 58.3 % 5 44 - 74 [facility] Eosinophil NFr Bld Auto 13.4 % Above high normal 5 0 - 6 [facility] Lymphocytes # Bld Auto 0.4 K/mcL Below low normal 5 1 - 3.2 [facility] Lymphocytes NFr Bld Auto 18.6 % Below low normal 5 20 - 48 [facility] Monocytes # Bld Auto 0.2 K/mcL 5 0 - 0.8 [facility] Hct VFr Bld Auto 21.4 % Below low normal 02 5 40 - 54 [facility] MCHC RBC Auto-EntMCnc 33.5 g/dL 5 32 - 36 [facility] Eosinophil # Bld Auto 0.3 K/mcL 5 0 - 0.5 [facility] PMV Bld Auto 7.5 FL 5 7.4 - 11.4 [facility] WBC # Bld Auto 1.9 K/mcL Below low normal 5 4 - 10.5 [facility] Glucose Bld-mCnc 193.0 mg/dL 5 70 - 199 [facility] Glucose Bld-mCnc 143.0 mg/dL 5 70 - 199 [facility] Glucose Bld-mCnc 138.0 mg/dL 5 70 - 199 [facility] Glucose Bld-mCnc 178.0 mg/dL 5 70 - 199 [facility] Glucose Bld-mCnc 158.0 mg/dL 5 70 - 199 [facility] Potassium SerPl-sCnc 5.8 mmol/L Above high normal 5 3.5 - 5.1 [facility] Glucose Bld-mCnc 126.0 mg/dL 5 70 - 199 [facility] Glucose Bld-mCnc 115.0 mg/dL 5 70 - 199 [facility] eGFRcr SerPlBld CKD-EPI 2020 41.0 mL/min/1.73m2 Below low normal 5 - [facility] Anion Gap SerPl Calc-sCnc 8.0 5 5 - 14 [facility] Chloride SerPl-sCnc 100.0 mmol/L 11/28/19 2 5 98 - 107 [facility] BUN SerPl-mCnc 69.0 mg/dL Above high normal 11/28/19 2 5 9 - 20 [facility] BUN/Creat SerPl 36.3 Above high normal 02 5 12 - 20 [facility] Potassium SerPl-sCnc 5.5 mmol/L Above high normal 5 3.5 - 5.1 [facility] CO2 SerPl-sCnc 22.0 mmol/L Below low normal 5 24 - 32 [facility] Glucose SerPl-mCnc 113.0 mg/dL 5 70 - 199 [facility] Creat SerPl-mCnc 1.9 mg/dL Above high normal 5 0.7 - 1.3 [facility] Sodium SerPl-sCnc 130.0 mmol/L Below low normal 5 135 - 145 [facility] Calcium SerPl-mCnc 9.3 mg/dL 5 8.4 - 10.2 [facility] Glucose Bld-mCnc 129.0 mg/dL 5 70 - 199 [facility] Sodium Ur-sCnc 48.0 mmol/L Below low normal 5 50 - 191 [facility] Creat Ur-mCnc 47.8 mg/dL 5 [facility] Potassium Ur-sCnc 13.0 mmol/L Below low normal 5 20 - 50 [facility] Osmolality Ur 335.0 mOsm/kg 5 50 - 1200 [facility] Glucose Bld-mCnc 125.0 mg/dL 5 70 - 199 [facility] Magnesium SerPl-mCnc 1.8 mg/dL 5 1.7 - 2.8 [facility] Creat SerPl-mCnc 1.5 mg/dL Above high normal 5 0.7 - 1.3 [facility] Potassium SerPl-sCnc 5.2 mmol/L Above high normal 5 3.5 - 5.1 [facility] Calcium SerPl-mCnc 9.1 mg/dL 5 8.4 - 10.2 [facility] Chloride SerPl-sCnc 99.0 mmol/L 11/28/19 2 5 98 - 107 [facility] Glucose SerPl-mCnc 117.0 mg/dL 5 70 - 199 [facility] BUN SerPl-mCnc 59.0 mg/dL Above high normal 11/28/19 2 5 9 - 20 [facility] Anion Gap SerPl Calc-sCnc 9.0 5 5 - 14 [facility] CO2 SerPl-sCnc 21.0 mmol/L Below low normal 5 24 - 32 [facility] Sodium SerPl-sCnc 129.0 mmol/L Below low normal 5 135 - 145 [facility] eGFRcr SerPlBld CKD-EPI 2020 54.0 mL/min/1.73m2 Below low normal 5 - [facility] BUN/Creat SerPl 39.3 Above high normal 02 5 12 - 20 [facility] Phosphate SerPl-mCnc 4.5 mg/dL 5 2.5 - 4.5 [facility] MCHC RBC Auto-EntMCnc 32.5 g/dL 5 32 - 36 [facility] Platelet # Bld Auto 85.0 K/mcL Below low normal 08 5 150 - 450 [facility] PMV Bld Auto 7.4 FL 5 7.4 - 11.4 [facility] RBC Auto 84.4 FL 5 78 - 100 [facility] Hgb Bld-mCnc 7.4 g/dL Below low normal 5 13.5 - 18 [facility] Hct VFr Bld Auto 22.8 % Below low normal 02 5 40 - 54 [facility] WBC # Bld Auto 2.1 K/mcL Below low normal 5 4 - 10.5 [facility] RDW RBC Auto 17.1 % 5 12.1 - 17.7 [facility] RBC # Bld Auto 2.71 M/mcL Below low normal 5 4.7 - 6 [facility] MCH RBC Qn Auto 27.5 pcg 5 25 - 33 [facility] Chloride SerPl-sCnc 99.0 mmol/L 11/28/19 2 5 98 - 107 [facility] BUN SerPl-mCnc 50.0 mg/dL Above high normal 11/28/19 2 5 9 - 20 [facility] BUN/Creat SerPl 31.3 Above high normal 02 5 12 - 20 [facility] Glucose SerPl-mCnc 184.0 mg/dL 5 70 - 199 [facility] Anion Gap SerPl Calc-sCnc 10.0 5 5 - 14 [facility] Calcium SerPl-mCnc 8.8 mg/dL 5 8.4 - 10.2 [facility] Potassium SerPl-sCnc 5.3 mmol/L Above high normal 5 3.5 - 5.1 [facility] eGFRcr SerPlBld CKD-EPI 2020 50.0 mL/min/1.73m2 Below low normal 5 - [facility] Sodium SerPl-sCnc 129.0 mmol/L Below low normal 5 135 - 145 [facility] Creat SerPl-mCnc 1.6 mg/dL Above high normal 5 0.7 - 1.3 [facility] CO2 SerPl-sCnc 20.0 mmol/L Below low normal 5 24 - 32 [facility] Glucose Bld-mCnc 192.0 mg/dL 5 70 - 199 [facility] Glucose Bld-mCnc 134.0 mg/dL 5 70 - 199 [facility] Chloride SerPl-sCnc 98.0 mmol/L 11/27/19 2 5 98 - 107 [facility] Glucose SerPl-mCnc 122.0 mg/dL 5 70 - 199 [facility] eGFRcr SerPlBld CKD-EPI 2020 50.0 mL/min/1.73m2 Below low normal 5 - [facility] Anion Gap SerPl Calc-sCnc 8.0 5 5 - 14 [facility] CO2 SerPl-sCnc 21.0 mmol/L Below low normal 5 24 - 32 [facility] BUN/Creat SerPl 22.5 Above high normal 02 5 12 - 20 [facility] BUN SerPl-mCnc 36.0 mg/dL Above high normal 11/27/19 2 5 9 - 20 [facility] Sodium SerPl-sCnc 127.0 mmol/L Below low normal 5 135 - 145 [facility] Creat SerPl-mCnc 1.6 mg/dL Above high normal 5 0.7 - 1.3 [facility] Potassium SerPl-sCnc 5.6 mmol/L Above high normal 5 3.5 - 5.1 [facility] Calcium SerPl-mCnc 9.4 mg/dL 5 8.4 - 10.2 [facility] Anion Gap SerPl Calc-sCnc 6.0 5 5 - 14 [facility] Calcium SerPl-mCnc 5.6 mg/dL Critically low 02 5 8.4 - 10.2 [facility] BUN/Creat SerPl 26.7 Above high normal 02 5 12 - 20 [facility] eGFRcr SerPlBld CKD-EPI 2020 100.0 mL/min/1.73m2 5 - [facility] Glucose SerPl-mCnc 89.0 mg/dL 5 70 - 199 [facility] Sodium SerPl-sCnc 136.0 mmol/L 5 135 - 145 [facility] Creat SerPl-mCnc 0.9 mg/dL 5 0.7 - 1.3 [facility] Potassium SerPl-sCnc 3.7 mmol/L 5 3.5 - 5.1 [facility] BUN SerPl-mCnc 24.0 mg/dL Above high normal 11/27/19 2 5 9 - 20 [facility] CO2 SerPl-sCnc 14.0 mmol/L Below low normal 5 24 - 32 [facility] Chloride SerPl-sCnc 116.0 mmol/L Above high normal 5 98 - 107 [facility] Glucose Bld-mCnc 137.0 mg/dL 5 70 - 199 [facility] Anion Gap SerPl Calc-sCnc 5.0 5 5 - 14 [facility] Calcium SerPl-mCnc 5.0 mg/dL Critically low 02 5 8.4 - 10.2 [facility] Glucose SerPl-mCnc 65.0 mg/dL Below low normal 11/26 5 70 - 199 [facility] Potassium SerPl-sCnc 3.1 mmol/L Below low normal 5 3.5 - 5.1 [facility] Sodium SerPl-sCnc 137.0 mmol/L 5 135 - 145 [facility] BUN SerPl-mCnc 21.0 mg/dL Above high normal 11/27/19 2 5 9 - 20 [facility] BUN/Creat SerPl 30.0 Above high normal 02 5 12 - 20 [facility] CO2 SerPl-sCnc 12.0 mmol/L Below low normal 5 24 - 32 [facility] Chloride SerPl-sCnc 120.0 mmol/L Above high normal 5 98 - 107 [facility] eGFRcr SerPlBld CKD-EPI 2020 108.0 mL/min/1.73m2 5 - [facility] Creat SerPl-mCnc 0.7 mg/dL 5 0.7 - 1.3 [facility] Sodium Ur-sCnc 42.0 mmol/L Below low normal 5 50 - 191 [facility] Creat Ur-mCnc 63.7 mg/dL 5 [facility] Potassium Ur-sCnc 17.7 mmol/L Below low normal 5 20 - 50 [facility] Osmolality Ur 270.0 mOsm/kg 5 50 - 1200 [facility] Glucose Bld-mCnc 144.0 mg/dL 5 70 - 199 [facility] Urate SerPl-mCnc 7.0 mg/dL 5 3.5 - 8.5 [facility] Magnesium SerPl-mCnc 1.9 mg/dL 5 1.7 - 2.8 [facility] Creat SerPl-mCnc 1.4 mg/dL Above high normal 5 0.7 - 1.3 [facility] Anion Gap SerPl Calc-sCnc 7.0 5 5 - 14 [facility] Glucose SerPl-mCnc 140.0 mg/dL 5 70 - 199 [facility] Sodium SerPl-sCnc 126.0 mmol/L Below low normal 5 135 - 145 [facility] Calcium SerPl-mCnc 8.8 mg/dL 5 8.4 - 10.2 [facility] BUN/Creat SerPl 22.9 Above high normal 02 5 12 - 20 [facility] Potassium SerPl-sCnc 5.2 mmol/L Above high normal 5 3.5 - 5.1 [facility] BUN SerPl-mCnc 32.0 mg/dL Above high normal 11/27/19 2 5 9 - 20 [facility] eGFRcr SerPlBld CKD-EPI 2020 59.0 mL/min/1.73m2 Below low normal 5 - [facility] Chloride SerPl-sCnc 97.0 mmol/L Below low normal 5 98 - 107 [facility] CO2 SerPl-sCnc 22.0 mmol/L Below low normal 5 24 - 32 [facility] Phosphate SerPl-mCnc 4.1 mg/dL 5 2.5 - 4.5 [facility] MCH RBC Qn Auto 27.7 pcg 5 25 - 33 [facility] RBC Auto 83.5 FL 5 78 - 100 [facility] RDW RBC Auto 17.3 % 5 12.1 - 17.7 [facility] Hgb Bld-mCnc 7.8 g/dL Below low normal 5 13.5 - 18 [facility] Platelet # Bld Auto 89.0 K/mcL Below low normal 5 150 - 450 [facility] MCHC RBC Auto-EntMCnc 33.2 g/dL 5 32 - 36 [facility] Hct VFr Bld Auto 23.4 % Below low normal 02 5 40 - 54 [facility] RBC # Bld Auto 2.8 M/mcL Below low normal 5 4.7 - 6 [facility] WBC # Bld Auto 2.5 K/mcL Below low normal 5 4 - 10.5 [facility] PMV Bld Auto 7.4 FL 5 7.4 - 11.4 [facility] Glucose SerPl-mCnc 129.0 mg/dL 5 70 - 199 [facility] Chloride SerPl-sCnc 97.0 mmol/L Below low normal 5 98 - 107 [facility] Creat SerPl-mCnc 1.6 mg/dL Above high normal 5 0.7 - 1.3 [facility] BUN SerPl-mCnc 32.0 mg/dL Above high normal 11/27/19 2 5 9 - 20 [facility] BUN/Creat SerPl 20.0 5 12 - 20 [facility] Potassium SerPl-sCnc 5.3 mmol/L Above high normal 5 3.5 - 5.1 [facility] CO2 SerPl-sCnc 21.0 mmol/L Below low normal 5 24 - 32 [facility] Anion Gap SerPl Calc-sCnc 7.0 5 5 - 14 [facility] eGFRcr SerPlBld CKD-EPI 2020 50.0 mL/min/1.73m2 Below low normal 5 - [facility] Calcium SerPl-mCnc 9.1 mg/dL 5 8.4 - 10.2 [facility] Sodium SerPl-sCnc 125.0 mmol/L Below low normal 5 135 - 145 [facility] Glucose Bld-mCnc 192.0 mg/dL 5 70 - 199 [facility] Anion Gap SerPl Calc-sCnc 7.0 5 5 - 14 [facility] BUN SerPl-mCnc 28.0 mg/dL Above high normal 11/26/19 2 5 9 - 20 [facility] Glucose SerPl-mCnc 137.0 mg/dL 5 70 - 199 [facility] CO2 SerPl-sCnc 22.0 mmol/L Below low normal 5 24 - 32 [facility] Potassium SerPl-sCnc 5.6 mmol/L Above high normal 5 3.5 - 5.1 [facility] eGFRcr SerPlBld CKD-EPI 2020 59.0 mL/min/1.73m2 Below low normal 5 - [facility] Chloride SerPl-sCnc 94.0 mmol/L Below low normal 5 98 - 107 [facility] Sodium SerPl-sCnc 123.0 mmol/L Below low normal 5 135 - 145 [facility] Creat SerPl-mCnc 1.4 mg/dL Above high normal 5 0.7 - 1.3 [facility] BUN/Creat SerPl 20.0 5 12 - 20 [facility] Calcium SerPl-mCnc 8.7 mg/dL 5 8.4 - 10.2 [facility] Glucose Bld-mCnc 139.0 mg/dL 5 70 - 199 [facility] Glucose Bld-mCnc 136.0 mg/dL 5 70 - 199 [facility] Sodium SerPl-sCnc 122.0 mmol/L Below low normal 5 135 - 145 [facility] Glucose Bld-mCnc 123.0 mg/dL 5 70 - 199 [facility] Potassium Ur-sCnc 14.7 mmol/L Below low normal 5 20 - 50 [facility] Creat Ur-mCnc 54.1 mg/dL 5 [facility] Sodium Ur-sCnc 38.0 mmol/L Below low normal 5 50 - 191 [facility] Osmolality Ur 214.0 mOsm/kg 5 50 - 1200 [facility] TSH SerPl DL<=0.005 mIU/L-aCnc 3.61 mcIU/mL 5 0.45 - 5.33 [facility] Cortis SerPl-mCnc 3.8 mcg/dL 5 3 - 23 [facility] Phosphate SerPl-mCnc 3.9 mg/dL 5 2.5 - 4.5 [facility] BUN/Creat SerPl 23.6 Above high normal 02 5 12 - 20 [facility] Glucose SerPl-mCnc 116.0 mg/dL 5 70 - 199 [facility] Sodium SerPl-sCnc 120.0 mmol/L Below low normal 5 135 - 145 [facility] Calcium SerPl-mCnc 8.8 mg/dL 5 8.4 - 10.2 [facility] Potassium SerPl-sCnc 5.2 mmol/L Above high normal 5 3.5 - 5.1 [facility] BUN SerPl-mCnc 26.0 mg/dL Above high normal 11/26/19 2 5 9 - 20 [facility] Anion Gap SerPl Calc-sCnc 7.0 5 5 - 14 [facility] eGFRcr SerPlBld CKD-EPI 2020 79.0 mL/min/1.73m2 5 - [facility] CO2 SerPl-sCnc 23.0 mmol/L Below low normal 5 24 - 32 [facility] Chloride SerPl-sCnc 90.0 mmol/L Below low normal 5 98 - 107 [facility] Creat SerPl-mCnc 1.1 mg/dL 5 0.7 - 1.3 [facility] Magnesium SerPl-mCnc 1.4 mg/dL Below low normal 5 1.7 - 2.8 [facility] PMV Bld Auto 7.7 FL 5 7.4 - 11.4 [facility] Hct VFr Bld Auto 25.0 % Below low normal 02 5 40 - 54 [facility] RDW RBC Auto 17.6 % 5 12.1 - 17.7 [facility] MCHC RBC Auto-EntMCnc 34.0 g/dL 5 32 - 36 [facility] RBC # Bld Auto 3.1 M/mcL Below low normal 5 4.7 - 6 [facility] MCH RBC Qn Auto 27.4 pcg 5 25 - 33 [facility] Platelet # Bld Auto 101.0 K/mcL Below low normal 5 150 - 450 [facility] Hgb Bld-mCnc 8.5 g/dL Below low normal 5 13.5 - 18 [facility] RBC Auto 80.7 FL 5 78 - 100 [facility] WBC # Bld Auto 3.4 K/mcL Below low normal 5 4 - 10.5 [facility] Creat SerPl-mCnc 1.2 mg/dL 5 0.7 - 1.3 [facility] Potassium SerPl-sCnc 5.1 mmol/L 5 3.5 - 5.1 [facility] eGFRcr SerPlBld CKD-EPI 2020 71.0 mL/min/1.73m2 5 - [facility] Calcium SerPl-mCnc 9.1 mg/dL 5 8.4 - 10.2 [facility] BUN/Creat SerPl 19.2 5 12 - 20 [facility] CO2 SerPl-sCnc 22.0 mmol/L Below low normal 5 24 - 32 [facility] Chloride SerPl-sCnc 88.0 mmol/L Below low normal / 5 98 - 107 [facility] Anion Gap SerPl Calc-sCnc 8.0 5 5 - 14 [facility] Sodium SerPl-sCnc 118.0 mmol/L Critically low 11/26/19 2 5 135 - 145 [facility] Glucose SerPl-mCnc 134.0 mg/dL 5 70 - 199 [facility] BUN SerPl-mCnc 23.0 mg/dL Above high normal 11/26/19 2 5 9 - 20 [facility] Glucose Bld-mCnc 120.0 mg/dL 5 70 - 199 [facility] Glucose Bld-mCnc 147.0 mg/dL 5 70 - 199 [facility] Sodium SerPl-sCnc 117.0 mmol/L Critically low 11/25/19 2 5 135 - 145 [facility] Sodium Ur-sCnc 31.0 mmol/L Below low normal 5 50 - 191 [facility] Potassium Ur-sCnc 18.1 mmol/L Below low normal 5 20 - 50 [facility] Ketones Ur-mCnc Negative 5 - [facility] RBC #/area UrnS HPF 7.0 /HPF Above high normal 5 0 - 3 [facility] Hgb Ur Ql Large Abnormal 5 - [facility] Squamous #/area UrnS HPF 6.0 /HPF Above high normal 5 0 - 5 [facility] Glucose Ur Ql Negative 5 - [facility] Color Ur Yellow 5 - [facility] Prot Ur Strip-mCnc Negative 5 - [facility] Clarity Ur Clear 5 - [facility] Nitrite Ur Ql Negative 5 - [facility] pH Ur 7.0 pH 5 5 - 8 [facility] Leukocyte esterase Ur Ql Strip Negative 5 - [facility] WBC #/area UrnS HPF 1.0 /HPF 11/25/19 2 5 0 - 5 [facility] Sp Gr Ur 1.005 5 1.005 - 1.03 [facility] Osmolality Ur 187.0 mOsm/kg 5 50 - 1200 [facility] BUN SerPl-mCnc 22.0 mg/dL Above high normal 11/25/19 2 5 9 - 20 [facility] Prot SerPl-mCnc 6.5 g/dL 5 6.4 - 8.5 [facility] AST SerPl-cCnc 35.0 unit/L 5 5 - 40 [facility] ALT SerPl-cCnc 20.0 unit/L 5 7 - 52 [facility] Calcium SerPl-mCnc 8.8 mg/dL 5 8.4 - 10.2 [facility] Potassium SerPl-sCnc 5.8 mmol/L Above high normal 5 3.5 - 5.1 [facility] Glucose SerPl-mCnc 132.0 mg/dL 5 70 - 199 [facility] Creat SerPl-mCnc 1.1 mg/dL 5 0.7 - 1.3 [facility] CO2 SerPl-sCnc 23.0 mmol/L Below low normal 5 24 - 32 [facility] Bilirub SerPl-mCnc 1.4 mg/dL Above high normal 5 0.3 - 1 [facility] Anion Gap SerPl Calc-sCnc 7.0 5 5 - 14 [facility] ALP SerPl-cCnc 191.0 unit/L Above high normal 11/25/19 2 5 34 - 104 [facility] Albumin SerPl-mCnc 3.8 g/dL 5 3.5 - 5 [facility] BUN/Creat SerPl 20.0 5 12 - 20 [facility] eGFRcr SerPlBld CKD-EPI 2020 79.0 mL/min/1.73m2 5 - [facility] Sodium SerPl-sCnc 116.0 mmol/L Critically low 11/25/19 2 5 135 - 145 [facility] Chloride SerPl-sCnc 86.0 mmol/L Below low normal 5 98 - 107 [facility] Osmolality SerPl 262.0 mOsm/kg Below low normal 5 275 - 295 [facility] Hgb Bld-mCnc 8.9 g/dL Below low normal 5 13.5 - 18 [facility] Platelet # Bld Auto 111.0 K/mcL Below low normal 5 150 - 450 [facility] PMV Bld Auto 7.4 FL 5 7.4 - 11.4 [facility] WBC # Bld Auto 5.3 K/mcL 5 4 - 10.5 [facility] MCHC RBC Auto-EntMCnc 35.3 g/dL 5 32 - 36 [facility] Hct VFr Bld Auto 25.2 % Below low normal 08/05/2 02 5 40 - 54 [facility] RBC # Bld Auto 3.13 M/mcL Below low normal 5 4.7 - 6 [facility] RBC Auto 80.6 FL 5 78 - 100 [facility] MCH RBC Qn Auto 28.4 pcg 5 25 - 33 [facility] RDW RBC Auto 17.5 % 5 12.1 - 17.7 [facility] Rh Bld Positive 5 [facility] Bld gp Ab Scn SerPl Ql Negative 5 [facility] ABO Group Bld A 5 [facility] Chloride SerPl-sCnc 85.0 mmol/L Below low normal 5 98 - 107 [facility] Sodium SerPl-sCnc 117.0 mmol/L Critically low 11/24/19 2 5 135 - 145 [facility] Potassium SerPl-sCnc 5.1 mmol/L 5 3.5 - 5.1 [facility] eGFRcr SerPlBld CKD-EPI 2020 71.0 mL/min/1.73m2 5 - [facility] BUN/Creat SerPl 17.5 5 12 - 20 [facility] Prot SerPl-mCnc 6.1 g/dL Below low normal 11/24/19 2 5 6.4 - 8.5 [facility] Glucose SerPl-mCnc 220.0 mg/dL Above high normal 5 70 - 199 [facility] Albumin SerPl-mCnc 3.7 g/dL 5 3.5 - 5 [facility] Creat SerPl-mCnc 1.2 mg/dL 5 0.7 - 1.3 [facility] Calcium SerPl-mCnc 8.7 mg/dL 5 8.4 - 10.2 [facility] ALT SerPl-cCnc 19.0 unit/L 5 7 - 52 [facility] AST SerPl-cCnc 37.0 unit/L 5 5 - 40 [facility] Anion Gap SerPl Calc-sCnc 9.0 5 5 - 14 [facility] CO2 SerPl-sCnc 23.0 mmol/L Below low normal 5 24 - 32 [facility] BUN SerPl-mCnc 21.0 mg/dL Above high normal 11/24/19 2 5 9 - 20 [facility] Bilirub SerPl-mCnc 1.3 mg/dL Above high normal 5 0.3 - 1 [facility] ALP SerPl-cCnc 190.0 unit/L Above high normal 11/24/19 2 5 34 - 104 [facility] Ferritin SerPl-mCnc 67.0 ng/mL 11/24/19 2 5 20 - 250 [facility] TIBC SerPl-mCnc 427.0 mcg/dL 5 250 - 450 [facility] Iron SerPl-mCnc 75.0 mcg/dL 5 49 - 181 [facility] Iron Satn MFr SerPl 18.0 % Below low normal 5 20 - 45 [facility] UIBC SerPl-mCnc 352.0 mcg/dL 5 155 - 355 [facility] Lymphocytes # Bld Auto 0.71 K/mcL Below low normal 5 1 - 3.2 [facility] Hgb Bld-mCnc 8.4 g/dL Below low normal 5 13.5 - 18 [facility] Eosinophil NFr Bld Auto 27.1 % Above high normal 5 0 - 6 [facility] Monocytes NFr Bld Auto 7.2 % 5 2 - 12 [facility] MCH RBC Qn Auto 27.7 pcg 5 25 - 33 [facility] Eosinophil # Bld Auto 1.35 K/mcL Above high normal 5 0 - 0.5 [facility] MCHC RBC Auto-EntMCnc 33.6 g/dL 5 32 - 36 [facility] Lymphocytes NFr Bld Auto 14.3 % Below low normal 5 20 - 48 [facility] RBC # Bld Auto 3.03 M/mcL Below low normal 5 4.7 - 6 [facility] Platelet # Bld Auto 120.0 K/mcL Below low normal 08/ 5 150 - 450 [facility] WBC # Bld Auto 5.0 K/mcL 5 4 - 10.5 [facility] Neutrophils # Bld Auto 2.52 K/mcL 5 1.8 - 7.8 [facility] Hct VFr Bld Auto 25.0 % Below low normal 02 5 40 - 54 [facility] RBC Auto 82.5 FL 5 78 - 100 [facility] Neutrophils NFr Bld Auto 50.6 % 5 44 - 74 [facility] Basophils NFr Bld Auto 0.4 % 5 0 - 2 [facility] Monocytes # Bld Auto 0.36 K/mcL 5 0 - 0.8 [facility] PMV Bld Auto 10.8 FL 5 7.4 - 11.4 [facility] Basophils # Bld Auto <0.03 K/mcL 5 0 - 0.2 [facility] RDW RBC Auto 15.6 % 5 12.1 - 17.7 [facility] 25(OH)D3 SerPl-mCnc 63.3 ng/mL 11/11/19 2 5 30 - 100 [facility] Rh Bld Positive 5 [facility] Bld gp Ab Scn SerPl Ql Negative 5 [facility] ABO Group Bld A 5 [facility] CO2 SerPl-sCnc 24.0 mmol/L 5 24 - 32 [facility] BUN/Creat SerPl 20.7 Above high normal 02 5 12 - 20 [facility] Bilirub SerPl-mCnc 1.0 mg/dL 5 0.3 - 1 [facility] Anion Gap SerPl Calc-sCnc 10.0 5 5 - 14 [facility] ALT SerPl-cCnc 13.0 unit/L 5 7 - 52 [facility] Potassium SerPl-sCnc 4.6 mmol/L 5 3.5 - 5.1 [facility] Sodium SerPl-sCnc 126.0 mmol/L Below low normal 5 135 - 145 [facility] BUN SerPl-mCnc 29.0 mg/dL Above high normal 11/11/19 2 5 9 - 20 [facility] Creat SerPl-mCnc 1.4 mg/dL Above high normal 5 0.7 - 1.3 [facility] AST SerPl-cCnc 24.0 unit/L 5 5 - 40 [facility] eGFRcr SerPlBld CKD-EPI 2020 59.0 mL/min/1.73m2 Below low normal 5 - [facility] ALP SerPl-cCnc 158.0 unit/L Above high normal 11/11/19 2 5 34 - 104 [facility] Chloride SerPl-sCnc 92.0 mmol/L Below low normal 10/21 5 98 - 107 [facility] Prot SerPl-mCnc 5.4 g/dL Below low normal 11/11/19 2 5 6.4 - 8.5 [facility] Calcium SerPl-mCnc 8.0 mg/dL Below low normal 11/10 5 8.4 - 10.2 [facility] Albumin SerPl-mCnc 3.2 g/dL Below low normal 11/10 5 3.5 - 5 [facility] Glucose SerPl-mCnc 409.0 mg/dL Above high normal 10/21 5 70 - 199 [facility] Basophils # Bld Auto <0.03 K/mcL 5 0 - 0.2 [facility] Lymphocytes # Bld Auto 0.54 K/mcL Below low normal 5 1 - 3.2 [facility] Hgb Bld-mCnc 7.6 g/dL Below low normal 5 13.5 - 18 [facility] WBC # Bld Auto 4.3 K/mcL 5 4 - 10.5 [facility] Lymphocytes NFr Bld Auto 12.6 % Below low normal 5 20 - 48 [facility] Eosinophil NFr Bld Auto 6.5 % Above high normal 5 0 - 6 [facility] MCHC RBC Auto-EntMCnc 31.9 g/dL Below low normal 5 32 - 36 [facility] RBC # Bld Auto 2.73 M/mcL Below low normal 5 4.7 - 6 [facility] Platelet # Bld Auto 130.0 K/mcL Below low normal 10/21 5 150 - 450 [facility] Hct VFr Bld Auto 23.8 % Below low normal 02 5 40 - 54 [facility] Monocytes # Bld Auto 0.24 K/mcL 5 0 - 0.8 [facility] Basophils NFr Bld Auto 0.5 % 5 0 - 2 [facility] Neutrophils # Bld Auto 3.19 K/mcL 5 1.8 - 7.8 [facility] Neutrophils NFr Bld Auto 74.3 % Above high normal 5 44 - 74 [facility] Eosinophil # Bld Auto 0.28 K/mcL 5 0 - 0.5 [facility] RBC Auto 87.2 FL 5 78 - 100 [facility] MCH RBC Qn Auto 27.8 pcg 5 25 - 33 [facility] RDW RBC Auto 15.6 % 5 12.1 - 17.7 [facility] PMV Bld Auto 9.5 FL 5 7.4 - 11.4 [facility] Monocytes NFr Bld Auto 5.6 % 5 2 - 12 [facility] Glucose Bld-mCnc 193.0 mg/dL 5 70 - 199 [facility] Glucose Bld-mCnc 221.0 mg/dL Above high normal 5 70 - 199 [facility] Folate SerPl-mCnc 9.0 ng/ml 5 - [facility] Vit B12 SerPl-mCnc 2079.0 pcg/mL Above high normal 5 180 - 914 [facility] Magnesium SerPl-mCnc 1.3 mg/dL Below low normal 5 1.7 - 2.8 [facility] eGFRcr SerPlBld CKD-EPI 2020 79.0 mL/min/1.73m2 5 - [facility] Anion Gap SerPl Calc-sCnc 11.0 5 5 - 14 [facility] Potassium SerPl-sCnc 3.9 mmol/L 5 3.5 - 5.1 [facility] Sodium SerPl-sCnc 137.0 mmol/L 5 135 - 145 [facility] Glucose SerPl-mCnc 220.0 mg/dL Above high normal 10/20 5 70 - 199 [facility] Chloride SerPl-sCnc 101.0 mmol/L 11/03/19 2 5 98 - 107 [facility] BUN/Creat SerPl 10.0 Below low normal 11/03/19 2 5 12 - 20 [facility] Calcium SerPl-mCnc 8.3 mg/dL Below low normal 11/02 5 8.4 - 10.2 [facility] CO2 SerPl-sCnc 25.0 mmol/L 5 24 - 32 [facility] BUN SerPl-mCnc 11.0 mg/dL 5 9 - 20 [facility] Creat SerPl-mCnc 1.1 mg/dL 5 0.7 - 1.3 [facility] Phosphate SerPl-mCnc 2.9 mg/dL 5 2.5 - 4.5 [facility] Glucose Bld-mCnc 147.0 mg/dL 5 70 - 199 [facility] Ferritin SerPl-mCnc 76.0 ng/mL 11/03/19 2 5 20 - 250 [facility] TSH SerPl DL<=0.005 mIU/L-aCnc 1.37 mcIU/mL 5 0.45 - 5.33 [facility] GGT SerPl-cCnc 152.0 unit/L Above high normal 11/03/19 2 5 15 - 73 [facility] Magnesium SerPl-mCnc 1.4 mg/dL Below low normal 5 1.7 - 2.8 [facility] AST SerPl-cCnc 14.0 unit/L 5 5 - 40 [facility] ALP SerPl-cCnc 130.0 unit/L Above high normal 11/03/19 2 5 34 - 104 [facility] Sodium SerPl-sCnc 137.0 mmol/L 5 135 - 145 [facility] Prot SerPl-mCnc 5.2 g/dL Below low normal 11/03/19 2 5 6.4 - 8.5 [facility] Anion Gap SerPl Calc-sCnc 10.0 5 5 - 14 [facility] Chloride SerPl-sCnc 101.0 mmol/L 11/03/19 2 5 98 - 107 [facility] BUN SerPl-mCnc 10.0 mg/dL 5 9 - 20 [facility] eGFRcr SerPlBld CKD-EPI 2020 88.0 mL/min/1.73m2 5 - [facility] Potassium SerPl-sCnc 3.5 mmol/L 5 3.5 - 5.1 [facility] Glucose SerPl-mCnc 113.0 mg/dL 5 70 - 199 [facility] BUN/Creat SerPl 10.0 Below low normal 11/03/19 2 5 12 - 20 [facility] Creat SerPl-mCnc 1.0 mg/dL 5 0.7 - 1.3 [facility] Bilirub SerPl-mCnc 1.3 mg/dL Above high normal 10/20 5 0.3 - 1 [facility] Albumin SerPl-mCnc 2.9 g/dL Below low normal 11/02 5 3.5 - 5 [facility] CO2 SerPl-sCnc 26.0 mmol/L 5 24 - 32 [facility] ALT SerPl-cCnc 7.0 unit/L 5 7 - 52 [facility] Calcium SerPl-mCnc 8.5 mg/dL 5 8.4 - 10.2 [facility] Cholest SerPl-mCnc 83.0 mg/dL 5 0 - 200 [facility] HDLc SerPl-mCnc 19.0 mg/dL Below low normal 11/03/19 2 5 32 - 70 [facility] LDLc SerPl Calc-mCnc 45.0 mg/dL Below low normal 5 50 - 130 [facility] Trigl SerPl-mCnc 93.0 mg/dL 5 - 150 [facility] VLDLc SerPl Calc-mCnc 18.6 mg/dL 5 [facility] Bilirub Direct SerPl-mCnc 0.5 mg/dL Above high normal 5 0 - 0.2 [facility] ALP SerPl-cCnc 130.0 unit/L Above high normal 11/03/19 2 5 34 - 104 [facility] Bilirub SerPl-mCnc 1.3 mg/dL Above high normal 10/20 5 0.3 - 1 [facility] ALT SerPl-cCnc 7.0 unit/L 5 7 - 52 [facility] Globulin Ser Calc-mCnc 2.3 g/dL 5 2.3 - 3.5 [facility] AST SerPl-cCnc 14.0 unit/L 5 5 - 40 [facility] Prot SerPl-mCnc 5.2 g/dL Below low normal 11/03/19 2 5 6.4 - 8.5 [facility] Albumin SerPl-mCnc 2.9 g/dL Below low normal 11/02 5 3.5 - 5 [facility] Albumin/Glob SerPl 1.3 5 [facility] Lymphocytes # Bld Auto 0.4 K/mcL Below low normal 5 1 - 3.2 [facility] Monocytes NFr Bld Auto 14.2 % Above high normal 5 2 - 12 [facility] Basophils NFr Bld Auto 1.3 % 5 0 - 2 [facility] Neutrophils # Bld Auto 1.5 K/mcL Below low normal 5 1.8 - 7.8 [facility] MCH RBC Qn Auto 27.4 pcg 5 25 - 33 [facility] WBC # Bld Auto 2.4 K/mcL Below low normal 5 4 - 10.5 [facility] Monocytes # Bld Auto 0.3 K/mcL 5 0 - 0.8 [facility] Basophils # Bld Auto 0.0 K/mcL 5 0 - 0.2 [facility] Neutrophils NFr Bld Auto 63.2 % 5 44 - 74 [facility] RBC Auto 85.8 FL 5 78 - 100 [facility] Hct VFr Bld Auto 24.9 % Below low normal 02 5 40 - 54 [facility] Hgb Bld-mCnc 8.0 g/dL Below low normal 5 13.5 - 18 [facility] MCHC RBC Auto-EntMCnc 32.0 g/dL 5 32 - 36 [facility] PMV Bld Auto 7.3 FL Below low normal 5 7.4 - 11.4 [facility] Eosinophil # Bld Auto 0.1 K/mcL 5 0 - 0.5 [facility] Eosinophil NFr Bld Auto 3.6 % 5 0 - 6 [facility] RDW RBC Auto 17.1 % 5 12.1 - 17.7 [facility] Platelet # Bld Auto 144.0 K/mcL Below low normal 10/20 5 150 - 450 [facility] Lymphocytes NFr Bld Auto 17.7 % Below low normal 5 20 - 48 [facility] RBC # Bld Auto 2.91 M/mcL Below low normal 5 4.7 - 6 [facility] Glucose Bld-mCnc 210.0 mg/dL Above high normal 5 70 - 199 [facility] Potassium SerPl-sCnc 3.8 mmol/L 5 3.5 - 5.1 [facility] BUN SerPl-mCnc 8.0 mg/dL Below low normal 5 9 - 20 [facility] BUN/Creat SerPl 10.0 Below low normal 11/02/19 2 5 12 - 20 [facility] eGFRcr SerPlBld CKD-EPI 2020 104.0 mL/min/1.73m2 5 - [facility] Chloride SerPl-sCnc 101.0 mmol/L 11/02/19 2 5 98 - 107 [facility] CO2 SerPl-sCnc 25.0 mmol/L 5 24 - 32 [facility] Calcium SerPl-mCnc 8.4 mg/dL 5 8.4 - 10.2 [facility] Glucose SerPl-mCnc 130.0 mg/dL 5 70 - 199 [facility] Creat SerPl-mCnc 0.8 mg/dL 5 0.7 - 1.3 [facility] Anion Gap SerPl Calc-sCnc 8.0 5 5 - 14 [facility] Sodium SerPl-sCnc 134.0 mmol/L Below low normal 5 135 - 145 [facility] Magnesium SerPl-mCnc 1.8 mg/dL 5 1.7 - 2.8 [facility] aPTT PPP 34.0 sec 5 25 - 37 [facility] PT Bld 15.0 sec Above high normal 5 10.5 - 13.3 [facility] INR PPP 1.3 Above high normal 5 0.8 - 1.1 [facility] Troponin I SerPl HS-mCnc 58.0 ng/L Above high normal 5 0 - 20 [facility] Ethanol SerPl-mCnc <10.0 mg/dL 5 0 - 10 [facility] Bld gp Ab Scn SerPl Ql Negative 5 [facility] ABO Group Bld A 5 [facility] Rh Bld Positive 5 [facility] Troponin I SerPl HS-mCnc 59.0 ng/L Above high normal 5 0 - 20 [facility] BNP SerPl-mCnc 434.0 pcg/mL Above high normal 11/02/19 2 5 0 - 100 [facility] MCHC RBC Auto-EntMCnc 32.0 g/dL 5 32 - 36 [facility] Basophils NFr Bld Auto 0.8 % 5 0 - 2 [facility] Monocytes # Bld Auto 0.5 K/mcL 5 0 - 0.8 [facility] Lymphocytes NFr Bld Auto 5.9 % Below low normal 5 20 - 48 [facility] PMV Bld Auto 7.1 FL Below low normal 5 7.4 - 11.4 [facility] Platelet # Bld Auto 164.0 K/mcL 11/02/19 2 5 150 - 450 [facility] RBC # Bld Auto 3.19 M/mcL Below low normal 5 4.7 - 6 [facility] Hgb Bld-mCnc 8.8 g/dL Below low normal 5 13.5 - 18 [facility] Basophils # Bld Auto 0.0 K/mcL 5 0 - 0.2 [facility] MCH RBC Qn Auto 27.5 pcg 5 25 - 33 [facility] Neutrophils NFr Bld Auto 79.9 % Above high normal 5 44 - 74 [facility] Neutrophils # Bld Auto 3.7 K/mcL 5 1.8 - 7.8 [facility] Lymphocytes # Bld Auto 0.3 K/mcL Below low normal 5 1 - 3.2 [facility] RBC Auto 86.0 FL 5 78 - 100 [facility] Eosinophil NFr Bld Auto 1.9 % 5 0 - 6 [facility] RDW RBC Auto 17.6 % 5 12.1 - 17.7 [facility] Monocytes NFr Bld Auto 11.5 % 5 2 - 12 [facility] WBC # Bld Auto 4.7 K/mcL 5 4 - 10.5 [facility] Hct VFr Bld Auto 27.4 % Below low normal 02 5 40 - 54 [facility] Eosinophil # Bld Auto 0.1 K/mcL 5 0 - 0.5 [facility] Magnesium SerPl-mCnc 1.1 mg/dL Below low normal 5 1.7 - 2.8 [facility] CO2 SerPl-sCnc 25.0 mmol/L 5 24 - 32 [facility] Creat SerPl-mCnc 0.9 mg/dL 5 0.7 - 1.3 [facility] Anion Gap SerPl Calc-sCnc 12.0 5 5 - 14 [facility] Calcium SerPl-mCnc 8.5 mg/dL 5 8.4 - 10.2 [facility] eGFRcr SerPlBld CKD-EPI 2020 100.0 mL/min/1.73m2 5 - [facility] BUN SerPl-mCnc 8.0 mg/dL Below low normal 5 9 - 20 [facility] Potassium SerPl-sCnc 3.3 mmol/L Below low normal 5 3.5 - 5.1 [facility] Chloride SerPl-sCnc 98.0 mmol/L 11/02/19 2 5 98 - 107 [facility] BUN/Creat SerPl 8.9 Below low normal 11/02/19 2 5 12 - 20 [facility] Glucose SerPl-mCnc 148.0 mg/dL 5 70 - 199 [facility] Sodium SerPl-sCnc 135.0 mmol/L 5 135 - 145 [facility] Rh Bld Positive 5 [facility] Bld gp Ab Scn SerPl Ql Negative 5 [facility] ABO Group Bld A 5 [facility] Lymphocytes # Bld Auto 0.37 K/mcL Below low normal 5 1 - 3.2 [facility] WBC # Bld Auto 4.4 K/mcL 5 4 - 10.5 [facility] Hgb Bld-mCnc 7.3 g/dL Below low normal 5 13.5 - 18 [facility] Neutrophils # Bld Auto 3.15 K/mcL 5 1.8 - 7.8 [facility] Monocytes NFr Bld Auto 15.2 % Above high normal 5 2 - 12 [facility] MCH RBC Qn Auto 28.0 pcg 5 25 - 33 [facility] PMV Bld Auto 8.7 FL 5 7.4 - 11.4 [facility] Lymphocytes NFr Bld Auto 8.5 % Below low normal 5 20 - 48 [facility] Basophils # Bld Auto <0.03 K/mcL 5 0 - 0.2 [facility] Neutrophils NFr Bld Auto 72.4 % 5 44 - 74 [facility] Monocytes # Bld Auto 0.66 K/mcL 5 0 - 0.8 [facility] Platelet # Bld Auto 141.0 K/mcL Below low normal 07/ 5 150 - 450 [facility] Hct VFr Bld Auto 23.7 % Below low normal 02 5 40 - 54 [facility] MCHC RBC Auto-EntMCnc 30.8 g/dL Below low normal 5 32 - 36 [facility] RBC Auto 90.8 FL 5 78 - 100 [facility] Eosinophil NFr Bld Auto 3.2 % 5 0 - 6 [facility] RDW RBC Auto 16.3 % 5 12.1 - 17.7 [facility] Basophils NFr Bld Auto 0.5 % 5 0 - 2 [facility] Eosinophil # Bld Auto 0.14 K/mcL 5 0 - 0.5 [facility] RBC # Bld Auto 2.61 M/mcL Below low normal 5 4.7 - 6 [facility] ABO Group Bld A 5 [facility] Rh Bld Positive 5 [facility] Bld gp Ab Scn SerPl Ql Negative 5 [facility] eGFRcr SerPlBld CKD-EPI 2020 71.0 mL/min/1.73m2 5 - [facility] Chloride SerPl-sCnc 95.0 mmol/L Below low normal 09/22 5 98 - 107 [facility] BUN/Creat SerPl 19.2 5 12 - 20 [facility] ALP SerPl-cCnc 164.0 unit/L Above high normal 10/20/19 2 5 34 - 104 [facility] Anion Gap SerPl Calc-sCnc 18.0 Above high normal 5 5 - 14 [facility] ALT SerPl-cCnc 23.0 unit/L 5 7 - 52 [facility] BUN SerPl-mCnc 23.0 mg/dL Above high normal 10/20/19 2 5 9 - 20 [facility] Creat SerPl-mCnc 1.2 mg/dL 5 0.7 - 1.3 [facility] AST SerPl-cCnc 31.0 unit/L 5 5 - 40 [facility] Bilirub SerPl-mCnc 2.0 mg/dL Above high normal 09/22 5 0.3 - 1 [facility] Glucose SerPl-mCnc 166.0 mg/dL 5 70 - 199 [facility] Sodium SerPl-sCnc 135.0 mmol/L 5 135 - 145 [facility] Potassium SerPl-sCnc 3.7 mmol/L 5 3.5 - 5.1 [facility] CO2 SerPl-sCnc 22.0 mmol/L Below low normal 5 24 - 32 [facility] Prot SerPl-mCnc 5.7 g/dL Below low normal 10/20/19 2 5 6.4 - 8.5 [facility] Calcium SerPl-mCnc 9.2 mg/dL 5 8.4 - 10.2 [facility] Albumin SerPl-mCnc 3.9 g/dL 5 3.5 - 5 [facility] PMV Bld Auto 9.6 FL 5 7.4 - 11.4 [facility] RBC # Bld Auto 2.8 M/mcL Below low normal 5 4.7 - 6 [facility] MCHC RBC Auto-EntMCnc 31.3 g/dL Below low normal 5 32 - 36 [facility] Basophils # Bld Auto <0.03 K/mcL 5 0 - 0.2 [facility] Neutrophils NFr Bld Auto 79.1 % Above high normal 5 44 - 74 [facility] Monocytes NFr Bld Auto 6.1 % 5 2 - 12 [facility] Platelet # Bld Auto 108.0 K/mcL Below low normal 09/22 5 150 - 450 [facility] Monocytes # Bld Auto 0.28 K/mcL 5 0 - 0.8 [facility] Lymphocytes NFr Bld Auto 11.4 % Below low normal 5 20 - 48 [facility] RDW RBC Auto 15.7 % 5 12.1 - 17.7 [facility] Hct VFr Bld Auto 25.2 % Below low normal 02 5 40 - 54 [facility] Eosinophil NFr Bld Auto 2.6 % 5 0 - 6 [facility] WBC # Bld Auto 4.6 K/mcL 5 4 - 10.5 [facility] MCH RBC Qn Auto 28.2 pcg 5 25 - 33 [facility] Hgb Bld-mCnc 7.9 g/dL Below low normal 5 13.5 - 18 [facility] Eosinophil # Bld Auto 0.12 K/mcL 5 0 - 0.5 [facility] Basophils NFr Bld Auto 0.4 % 5 0 - 2 [facility] Lymphocytes # Bld Auto 0.52 K/mcL Below low normal 5 1 - 3.2 [facility] Neutrophils # Bld Auto 3.61 K/mcL 5 1.8 - 7.8 [facility] RBC Auto 90.0 FL 5 78 - 100 [facility] Glucose Bld-mCnc 266.0 mg/dL Above high normal 5 70 - 199 [facility] Calcium SerPl-mCnc 8.5 mg/dL 5 8.4 - 10.2 [facility] Potassium SerPl-sCnc 4.4 mmol/L 5 3.5 - 5.1 [facility] BUN SerPl-mCnc 35.0 mg/dL Above high normal 10/08/19 2 5 9 - 20 [facility] Anion Gap SerPl Calc-sCnc 5.0 5 5 - 14 [facility] eGFRcr SerPlBld CKD-EPI 2020 50.0 mL/min/1.73m2 Below low normal 5 - [facility] BUN/Creat SerPl 21.9 Above high normal 02 5 12 - 20 [facility] Chloride SerPl-sCnc 106.0 mmol/L 10/08/19 2 5 98 - 107 [facility] Sodium SerPl-sCnc 134.0 mmol/L Below low normal 5 135 - 145 [facility] Glucose SerPl-mCnc 330.0 mg/dL Above high normal 09/20 5 70 - 199 [facility] Creat SerPl-mCnc 1.6 mg/dL Above high normal 5 0.7 - 1.3 [facility] CO2 SerPl-sCnc 23.0 mmol/L Below low normal 5 24 - 32 [facility] Magnesium SerPl-mCnc 1.7 mg/dL 5 1.7 - 2.8 [facility] RDW RBC Auto 18.5 % Above high normal 5 12.1 - 17.7 [facility] PMV Bld Auto 8.8 FL 5 7.4 - 11.4 [facility] RBC Auto 88.0 FL 5 78 - 100 [facility] Hct VFr Bld Auto 23.2 % Below low normal 02 5 40 - 54 [facility] MCHC RBC Auto-EntMCnc 33.2 g/dL 5 32 - 36 [facility] MCH RBC Qn Auto 29.3 pcg 5 25 - 33 [facility] RBC # Bld Auto 2.63 M/mcL Below low normal 5 4.7 - 6 [facility] WBC # Bld Auto 2.3 K/mcL Below low normal 5 4 - 10.5 [facility] Platelet # Bld Auto 61.0 K/mcL Below low normal 09/20 5 150 - 450 [facility] Hgb Bld-mCnc 7.7 g/dL Below low normal 5 13.5 - 18 [facility] Hgb Bld-mCnc 7.7 g/dL Below low normal 5 13.5 - 18 [facility] Hct VFr Bld Auto 23.2 % Below low normal 02 5 40 - 54 [facility] Glucose Bld-mCnc 379.0 mg/dL Above high normal 5 70 - 199 [facility] Glucose Bld-mCnc 388.0 mg/dL Above high normal 5 70 - 199 [facility] Hct VFr Bld Auto 23.9 % Below low normal 02 5 40 - 54 [facility] Hgb Bld-mCnc 7.8 g/dL Below low normal 5 13.5 - 18 [facility] Glucose Bld-mCnc 480.0 mg/dL Above high normal 5 70 - 199 [facility] Glucose Bld-mCnc 306.0 mg/dL Above high normal 5 70 - 199 [facility] Hct VFr Bld Auto 21.0 % Below low normal 02 5 40 - 54 [facility] Hgb Bld-mCnc 6.8 g/dL Critically low 5 13.5 - 18 [facility] Glucose Bld-mCnc 287.0 mg/dL Above high normal 5 70 - 199 [facility] Glucose Bld-mCnc 273.0 mg/dL Above high normal 5 70 - 199 [facility] CO2 SerPl-sCnc 25.0 mmol/L 5 24 - 32 [facility] ALT SerPl-cCnc 18.0 unit/L 5 7 - 52 [facility] ALP SerPl-cCnc 127.0 unit/L Above high normal 10/07/19 2 5 34 - 104 [facility] Creat SerPl-mCnc 1.8 mg/dL Above high normal 5 0.7 - 1.3 [facility] Chloride SerPl-sCnc 101.0 mmol/L 10/07/19 2 5 98 - 107 [facility] Potassium SerPl-sCnc 3.2 mmol/L Below low normal 5 3.5 - 5.1 [facility] AST SerPl-cCnc 24.0 unit/L 5 5 - 40 [facility] eGFRcr SerPlBld CKD-EPI 2020 44.0 mL/min/1.73m2 Below low normal 5 - [facility] Anion Gap SerPl Calc-sCnc 10.0 5 5 - 14 [facility] Glucose SerPl-mCnc 246.0 mg/dL Above high normal 09/20 5 70 - 199 [facility] Sodium SerPl-sCnc 136.0 mmol/L 5 135 - 145 [facility] Albumin SerPl-mCnc 3.2 g/dL Below low normal 10/06 5 3.5 - 5 [facility] BUN/Creat SerPl 27.8 Above high normal 02 5 12 - 20 [facility] Bilirub SerPl-mCnc 2.3 mg/dL Above high normal 09/20 5 0.3 - 1 [facility] Prot SerPl-mCnc 5.0 g/dL Below low normal 10/07/19 2 5 6.4 - 8.5 [facility] BUN SerPl-mCnc 50.0 mg/dL Above high normal 10/07/19 2 5 9 - 20 [facility] Calcium SerPl-mCnc 8.2 mg/dL Below low normal 10/06 5 8.4 - 10.2 [facility] Magnesium SerPl-mCnc 1.5 mg/dL Below low normal 5 1.7 - 2.8 [facility] Platelet # Bld Auto 61.0 K/mcL Below low normal 09/20 5 150 - 450 [facility] PMV Bld Auto 8.9 FL 5 7.4 - 11.4 [facility] Monocytes # Bld Auto 0.3 K/mcL 5 0 - 0.8 [facility] Basophils NFr Bld Auto 1.3 % 5 0 - 2 [facility] RBC # Bld Auto 2.09 M/mcL Below low normal 5 4.7 - 6 [facility] RDW RBC Auto 19.0 % Above high normal 5 12.1 - 17.7 [facility] Lymphocytes # Bld Auto 0.4 K/mcL Below low normal 5 1 - 3.2 [facility] Monocytes NFr Bld Auto 10.7 % 5 2 - 12 [facility] Eosinophil NFr Bld Auto 4.7 % 5 0 - 6 [facility] Basophils # Bld Auto 0.0 K/mcL 5 0 - 0.2 [facility] Neutrophils NFr Bld Auto 65.6 % 5 44 - 74 [facility] Hgb Bld-mCnc 6.1 g/dL Critically low 5 13.5 - 18 [facility] WBC # Bld Auto 2.5 K/mcL Below low normal 5 4 - 10.5 [facility] Hct VFr Bld Auto 18.4 % Below low normal 02 5 40 - 54 [facility] MCH RBC Qn Auto 29.2 pcg 5 25 - 33 [facility] Eosinophil # Bld Auto 0.1 K/mcL 5 0 - 0.5 [facility] RBC Auto 88.2 FL 5 78 - 100 [facility] MCHC RBC Auto-EntMCnc 33.1 g/dL 5 32 - 36 [facility] Lymphocytes NFr Bld Auto 17.7 % Below low normal 5 20 - 48 [facility] Neutrophils # Bld Auto 1.7 K/mcL Below low normal 5 1.8 - 7.8 [facility] LACTIC ACID 1.2 mmol/L 5 0.5 - 2.2 [facility] Glucose Bld-mCnc 279.0 mg/dL Above high normal 5 70 - 199 [facility] Glucose Bld-mCnc 360.0 mg/dL Above high normal 5 70 - 199 [facility] Anion Gap SerPl Calc-sCnc 11.0 5 5 - 14 [facility] BUN SerPl-mCnc 58.0 mg/dL Above high normal 10/07/19 2 5 9 - 20 [facility] Sodium SerPl-sCnc 128.0 mmol/L Below low normal 5 135 - 145 [facility] BUN/Creat SerPl 29.0 Above high normal 02 5 12 - 20 [facility] Calcium SerPl-mCnc 7.9 mg/dL Below low normal 10/06 5 8.4 - 10.2 [facility] Glucose SerPl-mCnc 539.0 mg/dL Critically high 5 70 - 199 [facility] Chloride SerPl-sCnc 94.0 mmol/L Below low normal 09/20 5 98 - 107 [facility] eGFRcr SerPlBld CKD-EPI 2020 38.0 mL/min/1.73m2 Below low normal 5 - [facility] Potassium SerPl-sCnc 3.5 mmol/L 5 3.5 - 5.1 [facility] CO2 SerPl-sCnc 23.0 mmol/L Below low normal 5 24 - 32 [facility] Creat SerPl-mCnc 2.0 mg/dL Above high normal 5 0.7 - 1.3 [facility] Hct VFr Bld Auto 16.9 % Below low normal 02 5 40 - 54 [facility] Hgb Bld-mCnc 5.3 g/dL Critically low 5 13.5 - 18 [facility] Glucose Bld-mCnc 485.0 mg/dL Above high normal 5 70 - 199 [facility] LACTIC ACID 3.1 mmol/L Above high normal 5 0.5 - 2.2 [facility] Glucose Bld-mCnc 496.0 mg/dL Above high normal 5 70 - 199 [facility] Ketones SerPl Ql Negative 5 - [facility] pH BldV 7.41 pH 5 7.35 - 7.45 [facility] Glucose Bld-mCnc 532.0 mg/dL Critically high 10/06/19 2 5 70 - 199 [facility] Glucose Bld-mCnc 440.0 mg/dL Above high normal 5 70 - 199 [facility] Est. average glucose Bld gHb Est-mCnc 117.0 mg/dL 5 [facility] HbA1c MFr Bld 5.7 % Above high normal 5 - 5.7 [facility] ABO Group Bld A 5 [facility] Bld gp Ab Scn SerPl Ql Negative 5 [facility] Rh Bld Positive 5 [facility] RBC Auto 91.1 FL 5 78 - 100 [facility] Lymphocytes # Bld Auto 0.4 K/mcL Below low normal 5 1 - 3.2 [facility] WBC # Bld Auto 2.8 K/mcL Below low normal 5 4 - 10.5 [facility] Eosinophil NFr Bld Auto 2.5 % 5 0 - 6 [facility] PMV Bld Auto 9.2 FL 5 7.4 - 11.4 [facility] Neutrophils NFr Bld Auto 74.3 % Above high normal 5 44 - 74 [facility] Monocytes NFr Bld Auto 8.2 % 5 2 - 12 [facility] Monocytes # Bld Auto 0.2 K/mcL 5 0 - 0.8 [facility] MCH RBC Qn Auto 29.0 pcg 5 25 - 33 [facility] Eosinophil # Bld Auto 0.1 K/mcL 5 0 - 0.5 [facility] Basophils # Bld Auto 0.0 K/mcL 5 0 - 0.2 [facility] Hct VFr Bld Auto 14.8 % Below low normal 02 5 40 - 54 [facility] MCHC RBC Auto-EntMCnc 31.9 g/dL Below low normal 5 32 - 36 [facility] Hgb Bld-mCnc 4.7 g/dL Critically low 5 13.5 - 18 [facility] Lymphocytes NFr Bld Auto 14.0 % Below low normal 5 20 - 48 [facility] Neutrophils # Bld Auto 2.1 K/mcL 5 1.8 - 7.8 [facility] Basophils NFr Bld Auto 1.0 % 5 0 - 2 [facility] Platelet # Bld Auto 72.0 K/mcL Below low normal 09/20 5 150 - 450 [facility] RBC # Bld Auto 1.63 M/mcL Below low normal 5 4.7 - 6 [facility] RDW RBC Auto 21.2 % Above high normal 5 12.1 - 17.7 [facility] Ovalocytes Bld Ql Smear Occasional 5 [facility] Dacryocytes Bld Ql Smear Occasional 5 [facility] Lg Platelets Bld Ql Auto Platelets Appear Decreased 5 [facility] Microcytes Present Present 5 [facility] Polychromasia Present Occasional 5 [facility] Creat SerPl-mCnc 1.9 mg/dL Above high normal 5 0.7 - 1.3 [facility] Albumin SerPl-mCnc 3.4 g/dL Below low normal 10/05 5 3.5 - 5 [facility] BUN SerPl-mCnc 59.0 mg/dL Above high normal 10/06/19 2 5 9 - 20 [facility] Chloride SerPl-sCnc 93.0 mmol/L Below low normal 09/20 5 98 - 107 [facility] Prot SerPl-mCnc 5.2 g/dL Below low normal 10/06/19 2 5 6.4 - 8.5 [facility] Calcium SerPl-mCnc 8.4 mg/dL 5 8.4 - 10.2 [facility] ALT SerPl-cCnc 19.0 unit/L 5 7 - 52 [facility] Sodium SerPl-sCnc 134.0 mmol/L Below low normal 5 135 - 145 [facility] Bilirub SerPl-mCnc 1.9 mg/dL Above high normal 09/20 5 0.3 - 1 [facility] Potassium SerPl-sCnc 3.6 mmol/L 5 3.5 - 5.1 [facility] AST SerPl-cCnc 25.0 unit/L 5 5 - 40 [facility] Glucose SerPl-mCnc 464.0 mg/dL Above high normal 09/20 5 70 - 199 [facility] BUN/Creat SerPl 31.1 Above high normal 02 5 12 - 20 [facility] CO2 SerPl-sCnc 24.0 mmol/L 5 24 - 32 [facility] eGFRcr SerPlBld CKD-EPI 2020 41.0 mL/min/1.73m2 Below low normal 5 - [facility] ALP SerPl-cCnc 148.0 unit/L Above high normal 10/06/19 2 5 34 - 104 [facility] Anion Gap SerPl Calc-sCnc 17.0 Above high normal 5 5 - 14 [facility] Bld gp Ab Scn SerPl Ql Negative 5 [facility] Rh Bld Positive 5 [facility] ABO Group Bld A 5 [facility] Lymphocytes NFr Bld Auto 13.2 % Below low normal 5 20 - 48 [facility] Basophils # Bld Auto <0.03 K/mcL 5 0 - 0.2 [facility] Lymphocytes # Bld Auto 0.41 K/mcL Below low normal 5 1 - 3.2 [facility] Monocytes # Bld Auto 0.3 K/mcL 5 0 - 0.8 [facility] RBC Auto 93.8 FL 5 78 - 100 [facility] Platelet # Bld Auto 79.0 K/mcL Below low normal 09/20 5 150 - 450 [facility] Monocytes NFr Bld Auto 9.6 % 5 2 - 12 [facility] Hct VFr Bld Auto 15.0 % Below low normal 02 5 40 - 54 [facility] Eosinophil NFr Bld Auto 3.5 % 5 0 - 6 [facility] Basophils NFr Bld Auto 0.6 % 5 0 - 2 [facility] Hgb Bld-mCnc 4.5 g/dL Critically low 5 13.5 - 18 [facility] Neutrophils # Bld Auto 2.24 K/mcL 5 1.8 - 7.8 [facility] MCH RBC Qn Auto 28.1 pcg 5 25 - 33 [facility] WBC # Bld Auto 3.1 K/mcL Below low normal 5 4 - 10.5 [facility] RDW RBC Auto 20.8 % Above high normal 5 12.1 - 17.7 [facility] MCHC RBC Auto-EntMCnc 30.0 g/dL Below low normal 5 32 - 36 [facility] Neutrophils NFr Bld Auto 72.1 % 5 44 - 74 [facility] PMV Bld Auto 11.3 FL 5 7.4 - 11.4 [facility] Eosinophil # Bld Auto 0.11 K/mcL 5 0 - 0.5 [facility] RBC # Bld Auto 1.6 M/mcL Below low normal 5 4.7 - 6 [facility] Microcytes Bld Ql Smear Few Abnormal 5 - [facility] RBC morph Bld Reviewed 5 [facility] Schistocytes Bld Ql Smear Few Abnormal 5 - [facility] Platelet Bld Ql Smear Platelets Appear Slightly Decreased Abnormal 5 - [facility] Dacryocytes Bld Ql Smear Few Abnormal 5 - [facility] Bld gp Ab Scn SerPl Ql Negative 5 [facility] ABO Group Bld A 5 [facility] Rh Bld Positive 5 [facility] Platelet # Bld Auto 86.0 K/mcL Below low normal 06/ 5 150 - 450 [facility] RBC # Bld Auto 2.25 M/mcL Below low normal 5 4.7 - 6 [facility] Eosinophil # Bld Auto 0.1 K/mcL 5 0 - 0.5 [facility] Monocytes # Bld Auto 0.42 K/mcL 5 0 - 0.8 [facility] Lymphocytes # Bld Auto 0.72 K/mcL Below low normal 5 1 - 3.2 [facility] PMV Bld Auto 11.7 FL Above high normal 5 7.4 - 11.4 [facility] Basophils # Bld Auto 0.03 K/mcL 5 0 - 0.2 [facility] RDW RBC Auto 16.5 % 5 12.1 - 17.7 [facility] Lymphocytes NFr Bld Auto 18.0 % Below low normal 5 20 - 48 [facility] MCHC RBC Auto-EntMCnc 31.2 g/dL Below low normal 5 32 - 36 [facility] Eosinophil NFr Bld Auto 2.5 % 5 0 - 6 [facility] Monocytes NFr Bld Auto 10.5 % 5 2 - 12 [facility] WBC # Bld Auto 4.0 K/mcL 5 4 - 10.5 [facility] RBC Auto 91.1 FL 5 78 - 100 [facility] Hgb Bld-mCnc 6.4 g/dL Critically low 5 13.5 - 18 [facility] Hct VFr Bld Auto 20.5 % Below low normal 02 5 40 - 54 [facility] Neutrophils # Bld Auto 2.72 K/mcL 5 1.8 - 7.8 [facility] Neutrophils NFr Bld Auto 67.9 % 5 44 - 74 [facility] Basophils NFr Bld Auto 0.8 % 5 0 - 2 [facility] MCH RBC Qn Auto 28.4 pcg 5 25 - 33 [facility] ABO Group Bld A 5 [facility] Bld gp Ab Scn SerPl Ql Negative 5 [facility] Rh Bld Positive 5 [facility] Monocytes # Bld Auto 0.28 K/mcL 5 0 - 0.8 [facility] MCH RBC Qn Auto 28.6 pcg 5 25 - 33 [facility] PMV Bld Auto 11.3 FL 5 7.4 - 11.4 [facility] Neutrophils # Bld Auto 1.54 K/mcL Below low normal 5 1.8 - 7.8 [facility] Basophils NFr Bld Auto 0.8 % 5 0 - 2 [facility] Platelet # Bld Auto 95.0 K/mcL Below low normal 06/ 5 150 - 450 [facility] RDW RBC Auto 15.3 % 5 12.1 - 17.7 [facility] RBC Auto 92.6 FL 5 78 - 100 [facility] Lymphocytes NFr Bld Auto 17.0 % Below low normal 5 20 - 48 [facility] MCHC RBC Auto-EntMCnc 30.8 g/dL Below low normal 5 32 - 36 [facility] Monocytes NFr Bld Auto 11.6 % 5 2 - 12 [facility] Eosinophil # Bld Auto 0.15 K/mcL 5 0 - 0.5 [facility] WBC # Bld Auto 2.4 K/mcL Below low normal 5 4 - 10.5 [facility] Neutrophils NFr Bld Auto 64.0 % 5 44 - 74 [facility] Eosinophil NFr Bld Auto 6.2 % Above high normal 5 0 - 6 [facility] RBC # Bld Auto 2.31 M/mcL Below low normal 5 4.7 - 6 [facility] Hgb Bld-mCnc 6.6 g/dL Critically low 5 13.5 - 18 [facility] Lymphocytes # Bld Auto 0.41 K/mcL Below low normal 5 1 - 3.2 [facility] Hct VFr Bld Auto 21.4 % Below low normal 02 5 40 - 54 [facility] Basophils # Bld Auto <0.03 K/mcL 5 0 - 0.2 [facility] ABO Group Bld A 5 [facility] Bld gp Ab Scn SerPl Ql Negative 5 [facility] Rh Bld Positive 5 [facility] MCHC RBC Auto-EntMCnc 30.7 g/dL Below low normal 5 32 - 36 [facility] MCH RBC Qn Auto 29.3 pcg 5 25 - 33 [facility] Basophils # Bld Auto <0.03 K/mcL 5 0 - 0.2 [facility] Eosinophil # Bld Auto 0.09 K/mcL 5 0 - 0.5 [facility] RBC # Bld Auto 2.42 M/mcL Below low normal 5 4.7 - 6 [facility] Hct VFr Bld Auto 23.1 % Below low normal 02 5 40 - 54 [facility] Monocytes # Bld Auto 0.19 K/mcL 5 0 - 0.8 [facility] RBC Auto 95.5 FL 5 78 - 100 [facility] Neutrophils NFr Bld Auto 69.2 % 5 44 - 74 [facility] RDW RBC Auto 15.4 % 5 12.1 - 17.7 [facility] Hgb Bld-mCnc 7.1 g/dL Below low normal 5 13.5 - 18 [facility] Lymphocytes NFr Bld Auto 16.1 % Below low normal 5 20 - 48 [facility] PMV Bld Auto 10.9 FL 5 7.4 - 11.4 [facility] Lymphocytes # Bld Auto 0.33 K/mcL Below low normal 5 1 - 3.2 [facility] Eosinophil NFr Bld Auto 4.4 % 5 0 - 6 [facility] Monocytes NFr Bld Auto 9.3 % 5 2 - 12 [facility] Neutrophils # Bld Auto 1.42 K/mcL Below low normal 5 1.8 - 7.8 [facility] WBC # Bld Auto 2.1 K/mcL Below low normal 5 4 - 10.5 [facility] Basophils NFr Bld Auto 1.0 % 5 0 - 2 [facility] Platelet # Bld Auto 84.0 K/mcL Below low normal 08/21 5 150 - 450 [facility] ABO Group Bld A 5 [facility] Rh Bld Positive 5 [facility] Bld gp Ab Scn SerPl Ql Negative 5 [facility] Ferritin SerPl-mCnc 38.0 ng/mL 09/11/19 2 5 20 - 250 [facility] 25(OH)D3 SerPl-mCnc 17.2 ng/mL Below low normal 08/21 5 30 - 100 [facility] Iron Satn MFr SerPl 10.0 % Below low normal 08/21 5 20 - 45 [facility] UIBC SerPl-mCnc 432.0 mcg/dL Above high normal 02 5 155 - 355 [facility] TIBC SerPl-mCnc 482.0 mcg/dL Above high normal 02 5 250 - 450 [facility] Iron SerPl-mCnc 50.0 mcg/dL 5 49 - 181 [facility] LDH SerPl L to P-cCnc 140.0 unit/L 5 125 - 220 [facility] Anion Gap SerPl Calc-sCnc 9.0 5 5 - 14 [facility] Potassium SerPl-sCnc 4.4 mmol/L 5 3.5 - 5.1 [facility] Albumin SerPl-mCnc 3.8 g/dL 5 3.5 - 5 [facility] ALT SerPl-cCnc 18.0 unit/L 5 7 - 52 [facility] Bilirub SerPl-mCnc 1.2 mg/dL Above high normal 08/21 5 0.3 - 1 [facility] BUN/Creat SerPl 24.7 Above high normal 02 5 12 - 20 [facility] BUN SerPl-mCnc 47.0 mg/dL Above high normal 09/11/19 2 5 9 - 20 [facility] ALP SerPl-cCnc 153.0 unit/L Above high normal 09/11/19 2 5 34 - 104 [facility] Calcium SerPl-mCnc 8.5 mg/dL 5 8.4 - 10.2 [facility] Chloride SerPl-sCnc 103.0 mmol/L 09/11/19 2 5 98 - 107 [facility] Creat SerPl-mCnc 1.9 mg/dL Above high normal 5 0.7 - 1.3 [facility] eGFRcr SerPlBld CKD-EPI 2020 41.0 mL/min/1.73m2 Below low normal 5 - [facility] Prot SerPl-mCnc 5.6 g/dL Below low normal 09/11/19 2 5 6.4 - 8.5 [facility] AST SerPl-cCnc 23.0 unit/L 5 5 - 40 [facility] CO2 SerPl-sCnc 23.0 mmol/L Below low normal 5 24 - 32 [facility] Glucose SerPl-mCnc 430.0 mg/dL Above high normal 08/21 5 70 - 199 [facility] Sodium SerPl-sCnc 135.0 mmol/L 5 135 - 145 [facility] INR PPP 1.5 Above high normal 5 0.8 - 1.1 [facility] PT Bld 16.9 sec Above high normal 5 10.5 - 13.3 [facility] RBC # Bld Auto 2.71 M/mcL Below low normal 5 4.7 - 6 [facility] MCHC RBC Auto-EntMCnc 32.1 g/dL 5 32 - 36 [facility] WBC # Bld Auto 3.0 K/mcL Below low normal 5 4 - 10.5 [facility] Basophils NFr Bld Auto 1.4 % 5 0 - 2 [facility] RBC Auto 93.8 FL 5 78 - 100 [facility] Hgb Bld-mCnc 8.2 g/dL Below low normal 5 13.5 - 18 [facility] Eosinophil # Bld Auto 0.2 K/mcL 5 0 - 0.5 [facility] Neutrophils # Bld Auto 2.0 K/mcL 5 1.8 - 7.8 [facility] Basophils # Bld Auto 0.0 K/mcL 5 0 - 0.2 [facility] Eosinophil NFr Bld Auto 5.9 % 5 0 - 6 [facility] Lymphocytes # Bld Auto 0.5 K/mcL Below low normal 5 1 - 3.2 [facility] Platelet # Bld Auto 80.0 K/mcL Below low normal 08/21 5 150 - 450 [facility] Neutrophils NFr Bld Auto 66.9 % 5 44 - 74 [facility] Hct VFr Bld Auto 25.4 % Below low normal 02 5 40 - 54 [facility] RDW RBC Auto 17.9 % Above high normal 5 12.1 - 17.7 [facility] Monocytes NFr Bld Auto 9.8 % 5 2 - 12 [facility] PMV Bld Auto 8.7 FL 5 7.4 - 11.4 [facility] Lymphocytes NFr Bld Auto 16.0 % Below low normal 5 20 - 48 [facility] Monocytes # Bld Auto 0.3 K/mcL 5 0 - 0.8 [facility] MCH RBC Qn Auto 30.1 pcg 5 25 - 33 [facility] Glucose Bld-mCnc 247.0 mg/dL Above high normal 5 70 - 199 [facility] Glucose Bld-mCnc 392.0 mg/dL Above high normal 5 70 - 199 [facility] Glucose Bld-mCnc 426.0 mg/dL Above high normal 5 70 - 199 [facility] Vit B12 SerPl-mCnc 1438.0 pcg/mL Above high normal 5 180 - 914 [facility] Folate SerPl-mCnc 10.8 ng/ml 5 - [facility] Ferritin SerPl-mCnc 29.0 ng/mL 09/09/19 2 5 20 - 250 [facility] Iron Satn MFr SerPl 25.0 % 09/09/19 2 5 20 - 45 [facility] Iron SerPl-mCnc 110.0 mcg/dL 5 49 - 181 [facility] TIBC SerPl-mCnc 442.0 mcg/dL 5 250 - 450 [facility] UIBC SerPl-mCnc 332.0 mcg/dL 5 155 - 355 [facility] Albumin SerPl-mCnc 3.7 g/dL 5 3.5 - 5 [facility] Bilirub SerPl-mCnc 2.2 mg/dL Above high normal 08/21 5 0.3 - 1 [facility] AST SerPl-cCnc 21.0 unit/L 5 5 - 40 [facility] Albumin/Glob SerPl 1.8 5 [facility] Prot SerPl-mCnc 5.8 g/dL Below low normal 09/09/19 2 5 6.4 - 8.5 [facility] ALT SerPl-cCnc 12.0 unit/L 5 7 - 52 [facility] Globulin Ser Calc-mCnc 2.1 g/dL Below low normal 5 2.3 - 3.5 [facility] ALP SerPl-cCnc 121.0 unit/L Above high normal 09/09/19 2 5 34 - 104 [facility] Bilirub Direct SerPl-mCnc 0.7 mg/dL Above high normal 5 0 - 0.2 [facility] Sodium SerPl-sCnc 137.0 mmol/L 5 135 - 145 [facility] ALP SerPl-cCnc 127.0 unit/L Above high normal 09/09/19 2 5 34 - 104 [facility] Calcium SerPl-mCnc 8.4 mg/dL 5 8.4 - 10.2 [facility] Creat SerPl-mCnc 1.5 mg/dL Above high normal 5 0.7 - 1.3 [facility] AST SerPl-cCnc 22.0 unit/L 5 5 - 40 [facility] ALT SerPl-cCnc 11.0 unit/L 5 7 - 52 [facility] Albumin SerPl-mCnc 3.6 g/dL 5 3.5 - 5 [facility] Glucose SerPl-mCnc 125.0 mg/dL Above high normal 08/21 5 70 - 99 [facility] Prot SerPl-mCnc 5.8 g/dL Below low normal 09/09/19 2 5 6.4 - 8.5 [facility] CO2 SerPl-sCnc 25.0 mmol/L 5 24 - 32 [facility] Bilirub SerPl-mCnc 2.3 mg/dL Above high normal 08/21 5 0.3 - 1 [facility] BUN/Creat SerPl 34.0 Above high normal 02 5 12 - 20 [facility] BUN SerPl-mCnc 51.0 mg/dL Above high normal 09/09/19 2 5 9 - 20 [facility] Anion Gap SerPl Calc-sCnc 9.0 5 5 - 14 [facility] Potassium SerPl-sCnc 3.7 mmol/L 5 3.5 - 5.1 [facility] eGFRcr SerPlBld CKD-EPI 2020 54.0 mL/min/1.73m2 Below low normal 5 - [facility] Chloride SerPl-sCnc 103.0 mmol/L 09/09/19 2 5 98 - 107 [facility] Neutrophils # Bld Auto 1.3 K/mcL Below low normal 5 1.8 - 7.8 [facility] Eosinophil # Bld Auto 0.2 K/mcL 5 0 - 0.5 [facility] WBC # Bld Auto 2.2 K/mcL Below low normal 5 4 - 10.5 [facility] RBC # Bld Auto 2.41 M/mcL Below low normal 5 4.7 - 6 [facility] Monocytes # Bld Auto 0.2 K/mcL 5 0 - 0.8 [facility] Neutrophils NFr Bld Auto 56.8 % 5 44 - 74 [facility] Eosinophil NFr Bld Auto 7.4 % Above high normal 5 0 - 6 [facility] MCHC RBC Auto-EntMCnc 33.3 g/dL 5 32 - 36 [facility] RDW RBC Auto 17.0 % 5 12.1 - 17.7 [facility] Lymphocytes # Bld Auto 0.5 K/mcL Below low normal 5 1 - 3.2 [facility] Hct VFr Bld Auto 22.0 % Below low normal 02 5 40 - 54 [facility] Basophils # Bld Auto 0.0 K/mcL 5 0 - 0.2 [facility] Monocytes NFr Bld Auto 10.3 % 5 2 - 12 [facility] Lymphocytes NFr Bld Auto 24.1 % 5 20 - 48 [facility] RBC Auto 91.5 FL 5 78 - 100 [facility] PMV Bld Auto 8.4 FL 5 7.4 - 11.4 [facility] Platelet # Bld Auto 65.0 K/mcL Below low normal 08/21 5 150 - 450 [facility] Basophils NFr Bld Auto 1.4 % 5 0 - 2 [facility] MCH RBC Qn Auto 30.4 pcg 5 25 - 33 [facility] Hgb Bld-mCnc 7.3 g/dL Below low normal 5 13.5 - 18 [facility] Hct VFr Bld Auto 22.7 % Below low normal 02 5 40 - 54 [facility] Hgb Bld-mCnc 7.5 g/dL Below low normal 5 13.5 - 18 [facility] ALP SerPl-cCnc 127.0 unit/L Above high normal 09/08/19 2 5 34 - 104 [facility] Potassium SerPl-sCnc 4.3 mmol/L 5 3.5 - 5.1 [facility] ALT SerPl-cCnc 9.0 unit/L 5 7 - 52 [facility] CO2 SerPl-sCnc 25.0 mmol/L 5 24 - 32 [facility] Creat SerPl-mCnc 1.7 mg/dL Above high normal 5 0.7 - 1.3 [facility] eGFRcr SerPlBld CKD-EPI 2020 47.0 mL/min/1.73m2 Below low normal 5 - [facility] Bilirub SerPl-mCnc 1.0 mg/dL 5 0.3 - 1 [facility] Prot SerPl-mCnc 5.6 g/dL Below low normal 09/08/19 2 5 6.4 - 8.5 [facility] BUN SerPl-mCnc 62.0 mg/dL Above high normal 09/08/19 2 5 9 - 20 [facility] Albumin SerPl-mCnc 3.4 g/dL Below low normal 09/07 5 3.5 - 5 [facility] Sodium SerPl-sCnc 135.0 mmol/L 5 135 - 145 [facility] Calcium SerPl-mCnc 8.1 mg/dL Below low normal 09/07 5 8.4 - 10.2 [facility] Chloride SerPl-sCnc 103.0 mmol/L 09/08/19 2 5 98 - 107 [facility] AST SerPl-cCnc 18.0 unit/L 5 5 - 40 [facility] Glucose SerPl-mCnc 280.0 mg/dL Above high normal 08/20 5 70 - 199 [facility] BUN/Creat SerPl 36.5 Above high normal 02 5 12 - 20 [facility] Anion Gap SerPl Calc-sCnc 7.0 5 5 - 14 [facility] Bld gp Ab Scn SerPl Ql Negative 5 [facility] ABO Group Bld A 5 [facility] Rh Bld Positive 5 [facility] Bld gp Ab Scn SerPl Ql Negative 5 [facility] ABO Group Bld A 5 [facility] Rh Bld Positive 5 [facility] RBC Auto 100.0 FL 5 78 - 100 [facility] RBC # Bld Auto 1.92 M/mcL Below low normal 5 4.7 - 6 [facility] Eosinophil # Bld Auto 0.16 K/mcL 5 0 - 0.5 [facility] PMV Bld Auto 10.4 FL 5 7.4 - 11.4 [facility] MCH RBC Qn Auto 29.2 pcg 5 25 - 33 [facility] Platelet # Bld Auto 65.0 K/mcL Below low normal 08/20 5 150 - 450 [facility] Basophils # Bld Auto 0.03 K/mcL 5 0 - 0.2 [facility] RDW RBC Auto 18.2 % Above high normal 5 12.1 - 17.7 [facility] Monocytes # Bld Auto 0.26 K/mcL 5 0 - 0.8 [facility] Neutrophils # Bld Auto 1.59 K/mcL Below low normal 5 1.8 - 7.8 [facility] Basophils NFr Bld Auto 1.2 % 5 0 - 2 [facility] Monocytes NFr Bld Auto 10.1 % 5 2 - 12 [facility] Neutrophils NFr Bld Auto 61.9 % 5 44 - 74 [facility] Lymphocytes NFr Bld Auto 19.8 % Below low normal 5 20 - 48 [facility] Lymphocytes # Bld Auto 0.51 K/mcL Below low normal 5 1 - 3.2 [facility] WBC # Bld Auto 2.6 K/mcL Below low normal 5 4 - 10.5 [facility] Eosinophil NFr Bld Auto 6.2 % Above high normal 5 0 - 6 [facility] MCHC RBC Auto-EntMCnc 29.2 g/dL Below low normal 5 32 - 36 [facility] Hgb Bld-mCnc 5.6 g/dL Critically low 5 13.5 - 18 [facility] Hct VFr Bld Auto 19.2 % Below low normal 02 5 40 - 54 [facility] ABO Group Bld A 5 [facility] Bld gp Ab Scn SerPl Ql Negative 5 [facility] Rh Bld Positive 5 [facility] RBC # Bld Auto 2.58 M/mcL Below low normal 5 4.7 - 6 [facility] Basophils # Bld Auto <0.03 K/mcL 5 0 - 0.2 [facility] Eosinophil NFr Bld Auto 6.0 % 5 0 - 6 [facility] Lymphocytes # Bld Auto 0.57 K/mcL Below low normal 5 1 - 3.2 [facility] Eosinophil # Bld Auto 0.18 K/mcL 5 0 - 0.5 [facility] Neutrophils NFr Bld Auto 65.5 % 5 44 - 74 [facility] MCH RBC Qn Auto 29.1 pcg 5 25 - 33 [facility] MCHC RBC Auto-EntMCnc 29.8 g/dL Below low normal 5 32 - 36 [facility] RBC Auto 97.7 FL 5 78 - 100 [facility] PMV Bld Auto 10.9 FL 5 7.4 - 11.4 [facility] Lymphocytes NFr Bld Auto 19.1 % Below low normal 5 20 - 48 [facility] Monocytes NFr Bld Auto 8.4 % 5 2 - 12 [facility] Hgb Bld-mCnc 7.5 g/dL Below low normal 5 13.5 - 18 [facility] Platelet # Bld Auto 80.0 K/mcL Below low normal 08/20 5 150 - 450 [facility] Neutrophils # Bld Auto 1.96 K/mcL 5 1.8 - 7.8 [facility] RDW RBC Auto 17.2 % 5 12.1 - 17.7 [facility] Hct VFr Bld Auto 25.2 % Below low normal 02 5 40 - 54 [facility] Basophils NFr Bld Auto 0.7 % 5 0 - 2 [facility] WBC # Bld Auto 3.0 K/mcL Below low normal 5 4 - 10.5 [facility] Monocytes # Bld Auto 0.25 K/mcL 5 0 - 0.8 [facility] PLPEth Bld-mCnc 86.0 ng/mL 5 - [facility] 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 5 [facility] POPEth Bld-mCnc 98.0 ng/mL 5 - [facility] HBV surface Ab SerPl IA-aCnc 0.0 mIU/mL 5 [facility] HBV surface Ab Ser Ql IA Negative 5 - [facility] HCV Ab SerPl Ql IA Negative 5 - [facility] HAV Ab Ser Ql IA Negative 5 - [facility] HBV core Ab SerPl Ql IA Negative 5 - [facility] HBV surface Ag SerPl Ql IA Negative 5 - [facility] BUN SerPl-mCnc 38.0 mg/dL Above high normal 08/29/19 2 5 9 - 20 [facility] Potassium SerPl-sCnc 4.4 mmol/L 5 3.5 - 5.1 [facility] Creat SerPl-mCnc 1.7 mg/dL Above high normal 5 0.7 - 1.3 [facility] CO2 SerPl-sCnc 24.0 mmol/L 5 24 - 32 [facility] ALT SerPl-cCnc 20.0 unit/L 5 7 - 52 [facility] AST SerPl-cCnc 28.0 unit/L 5 5 - 40 [facility] eGFRcr SerPlBld CKD-EPI 2020 47.0 mL/min/1.73m2 Below low normal 5 - [facility] Glucose SerPl-mCnc 164.0 mg/dL Above high normal 5 70 - 99 [facility] ALP SerPl-cCnc 177.0 unit/L Above high normal 08/29/19 2 5 34 - 104 [facility] Calcium SerPl-mCnc 8.9 mg/dL 5 8.4 - 10.2 [facility] BUN/Creat SerPl 22.4 Above high normal 02 5 12 - 20 [facility] Prot SerPl-mCnc 6.5 g/dL 5 6.4 - 8.5 [facility] Chloride SerPl-sCnc 104.0 mmol/L 08/29/19 2 5 98 - 107 [facility] Bilirub SerPl-mCnc 1.4 mg/dL Above high normal 05/ 5 0.3 - 1 [facility] Anion Gap SerPl Calc-sCnc 12.0 5 5 - 14 [facility] Albumin SerPl-mCnc 4.0 g/dL 5 3.5 - 5 [facility] Sodium SerPl-sCnc 140.0 mmol/L 5 135 - 145 [facility] AFP SerPl-mCnc 3.2 ng/mL 5 - [facility] INR PPP 1.6 Above high normal 5 0.8 - 1.1 [facility] PT Bld 18.4 sec Above high normal 5 10.5 - 13.3 [facility] Eosinophil # Bld Auto 0.1 K/mcL 5 0 - 0.5 [facility] Eosinophil NFr Bld Auto 4.0 % 5 0 - 6 [facility] RDW RBC Auto 17.0 % 5 12.1 - 17.7 [facility] Hct VFr Bld Auto 28.1 % Below low normal 02 5 40 - 54 [facility] Basophils # Bld Auto 0.0 K/mcL 5 0 - 0.2 [facility] PMV Bld Auto 9.5 FL 5 7.4 - 11.4 [facility] Hgb Bld-mCnc 9.1 g/dL Below low normal 5 13.5 - 18 [facility] Lymphocytes # Bld Auto 0.6 K/mcL Below low normal 5 1 - 3.2 [facility] RBC Auto 91.0 FL 5 78 - 100 [facility] RBC # Bld Auto 3.09 M/mcL Below low normal 5 4.7 - 6 [facility] Monocytes NFr Bld Auto 7.5 % 5 2 - 12 [facility] Lymphocytes NFr Bld Auto 17.5 % Below low normal 5 20 - 48 [facility] Platelet # Bld Auto 118.0 K/mcL Below low normal 05/0 5 150 - 450 [facility] Neutrophils # Bld Auto 2.3 K/mcL 5 1.8 - 7.8 [facility] Basophils NFr Bld Auto 0.5 % 5 0 - 2 [facility] Monocytes # Bld Auto 0.2 K/mcL 5 0 - 0.8 [facility] WBC # Bld Auto 3.3 K/mcL Below low normal 5 4 - 10.5 [facility] MCH RBC Qn Auto 29.5 pcg 5 25 - 33 [facility] MCHC RBC Auto-EntMCnc 32.4 g/dL 5 32 - 36 [facility] Neutrophils NFr Bld Auto 70.5 % 5 44 - 74 [facility] Bld gp Ab Scn SerPl Ql Negative 5 [facility] Rh Bld Positive 5 [facility] ABO Group Bld A 5 [facility] Neutrophils # Bld Auto 1.52 K/mcL Below low normal 5 1.8 - 7.8 [facility] Basophils NFr Bld Auto 0.8 % Normal 5 0 - 2 [facility] Monocytes NFr Bld Auto 10.4 % Normal 5 2 - 12 [facility] PMV Bld Auto 11.0 FL Normal 5 7.4 - 11.4 [facility] RBC # Bld Auto 2.37 M/mcL Below low normal 5 4.7 - 6 [facility] Eosinophil NFr Bld Auto 5.2 % Normal 5 0 - 6 [facility] Lymphocytes # Bld Auto 0.57 K/mcL Below low normal 5 1 - 3.2 [facility] Neutrophils NFr Bld Auto 60.5 % Normal 5 44 - 74 [facility] RDW RBC Auto 16.5 % Normal 5 12.1 - 17.7 [facility] Monocytes # Bld Auto 0.26 K/mcL Normal 5 0 - 0.8 [facility] Hgb Bld-mCnc 7.0 g/dL Critically low 5 13.5 - 18 [facility] Eosinophil # Bld Auto 0.13 K/mcL Normal 5 0 - 0.5 [facility] Platelet # Bld Auto 97.0 K/mcL Below low normal 5 150 - 450 [facility] Basophils # Bld Auto <0.03 K/mcL Normal 5 0 - 0.2 [facility] MCHC RBC Auto-EntMCnc 30.6 g/dL Below low normal 5 32 - 36 [facility] WBC # Bld Auto 2.5 K/mcL Below low normal 5 4 - 10.5 [facility] Hct VFr Bld Auto 22.9 % Below low normal 02 5 40 - 54 [facility] Lymphocytes NFr Bld Auto 22.7 % Normal 5 20 - 48 [facility] MCH RBC Qn Auto 29.5 pcg Normal 5 25 - 33 [facility] RBC Auto 96.6 FL Normal 5 78 - 100 [facility] Bld gp Ab Scn SerPl Ql Negative Normal 5 [facility] Rh Bld Positive Normal 5 [facility] ABO Group Bld A Normal 5 [facility] Ferritin SerPl-mCnc 52.0 ng/mL Normal 08/18/19 2 5 20 - 250 [facility] SerPl-mCnc 74.0 mcg/dL Normal 5 49 - 181 [facility] UIBC SerPl-mCnc 346.0 mcg/dL Normal 5 155 - 355 [facility] TIBC SerPl-mCnc 420.0 mcg/dL Normal 5 250 - 450 [facility] Satn MFr SerPl 18.0 % Below low normal 07/22 5 20 - 45 [facility] RBC # Bld Auto 2.48 M/mcL Below low normal 5 4.7 - 6 [facility] MCHC RBC Auto-EntMCnc 30.1 g/dL Below low normal 5 32 - 36 [facility] Lymphocytes NFr Bld Auto 16.6 % Below low normal 5 20 - 48 [facility] Lymphocytes # Bld Auto 0.53 K/mcL Below low normal 5 1 - 3.2 [facility] Platelet # Bld Auto 124.0 K/mcL Below low normal 07/22 5 150 - 450 [facility] PMV Bld Auto 10.3 FL Normal 5 7.4 - 11.4 [facility] Monocytes # Bld Auto 0.18 K/mcL Normal 5 0 - 0.8 [facility] Hct VFr Bld Auto 23.6 % Below low normal 02 5 40 - 54 [facility] Basophils NFr Bld Auto 0.9 % Normal 5 0 - 2 [facility] MCH RBC Qn Auto 28.6 pcg Normal 5 25 - 33 [facility] Monocytes NFr Bld Auto 5.6 % Normal 5 2 - 12 [facility] Eosinophil NFr Bld Auto 5.3 % Normal 5 0 - 6 [facility] Neutrophils NFr Bld Auto 71.3 % Normal 5 44 - 74 [facility] Hgb Bld-mCnc 7.1 g/dL Below low normal 5 13.5 - 18 [facility] Neutrophils # Bld Auto 2.28 K/mcL Normal 5 1.8 - 7.8 [facility] WBC # Bld Auto 3.2 K/mcL Below low normal 5 4 - 10.5 [facility] Eosinophil # Bld Auto 0.17 K/mcL Normal 5 0 - 0.5 [facility] RBC Auto 95.2 FL Normal 5 78 - 100 [facility] Basophils # Bld Auto 0.03 K/mcL Normal 5 0 - 0.2 [facility] RDW RBC Auto 15.5 % Normal 5 12.1 - 17.7 [facility] Rh Bld Positive Normal 5 [facility] ABO Group Bld A Normal 5 [facility] Bld gp Ab Scn SerPl Ql Negative Normal 5 [facility] Basophils # Bld Auto 0.04 K/mcL Normal 5 0 - 0.2 [facility] MCHC RBC Auto-mCnc 30.9 g/dL Below low normal 08/13 5 32 - 36 [facility] Neutrophils # Bld Auto 2.06 K/mcL Normal 5 1.8 - 7.8 [facility] RBC # Bld Auto 2.73 M/mcL Below low normal 5 4.7 - 6 [facility] Monocytes/leuk NFr Bld Auto 10.8 % Normal 5 2 - 12 [facility] Monocytes # Bld Auto 0.36 K/mcL Normal 5 0 - 0.8 [facility] Hgb Bld-mCnc 7.9 g/dL Below low normal 5 13.5 - 18 [facility] Hct VFr Bld Auto 25.6 % Below low normal 02 5 40 - 54 [facility] Platelet # Bld Auto 144.0 K/mcL Below low normal 07/22 5 150 - 450 [facility] RDW RBC Auto-Rto 14.5 % Normal 5 12.1 - 17.7 [facility] Lymphocytes # Bld Auto 0.69 K/mcL Below low normal 5 1 - 3.2 [facility] Eosinophil/leuk NFr Bld Auto 5.1 % Normal 5 0 - 6 [facility] PMV Bld Auto 9.8 FL Normal 5 7.4 - 11.4 [facility] Basophils/leuk NFr Bld Auto 1.2 % Normal 5 0 - 2 [facility] MCV RBC Auto 93.8 FL Normal 5 78 - 100 [facility] Lymphocytes/leuk NFr Bld Auto 20.7 % Normal 5 20 - 48 [facility] Eosinophil # Bld Auto 0.17 K/mcL Normal 5 0 - 0.5 [facility] Neutrophils/leuk NFr Bld Auto 61.9 % Normal 5 44 - 74 [facility] MCH RBC Qn Auto 28.9 pcg Normal 5 25 - 33 [facility] WBC # Bld Auto 3.3 K/mcL Below low normal 5 4 - 10.5 [facility] Glucose Bld-mCnc 280.0 mg/dL Above high normal 5 70 - 199 [facility] Glucose Bld-mCnc 233.0 mg/dL Above high normal 5 70 - 199 [facility] Glucose Bld-mCnc 235.0 mg/dL Above high normal 5 70 - 199 [facility] Sodium SerPl-sCnc 133.0 mmol/L Below low normal 5 135 - 145 [facility] Sodium SerPl-sCnc 132.0 mmol/L Below low normal 5 135 - 145 [facility] Creat SerPl-mCnc 1.8 mg/dL Above high normal 5 0.7 - 1.3 [facility] Calcium SerPl-mCnc 8.6 mg/dL Normal 5 8.4 - 10.2 [facility] BUN SerPl-mCnc 57.0 mg/dL Above high normal 08/10/19 2 5 9 - 20 [facility] BUN/Creat SerPl 31.7 Above high normal 02 5 12 - 20 [facility] Chloride SerPl-sCnc 98.0 mmol/L Normal 08/10/19 2 5 98 - 107 [facility] Potassium SerPl-sCnc 3.8 mmol/L Normal 5 3.5 - 5.1 [facility] Anion Gap SerPl-sCnc 11.0 Normal 5 5 - 14 [facility] eGFRcr SerPlBld CKD-EPI 2020 44.0 mL/min/1.73m2 Below low normal 5 - [facility] CO2 SerPl-sCnc 23.0 mmol/L Below low normal 5 24 - 32 [facility] Glucose SerPl-mCnc 299.0 mg/dL Above high normal 07/22 5 70 - 199 [facility] Hct VFr Bld Auto 22.3 % Below low normal 02 5 40 - 54 [facility] MCH RBC Qn Auto 30.3 pcg Normal 5 25 - 33 [facility] PMV Bld Auto 9.0 FL Normal 5 7.4 - 11.4 [facility] MCHC RBC Auto-mCnc 33.3 g/dL Normal 5 32 - 36 [facility] Platelet # Bld Auto 94.0 K/mcL Below low normal 07/22 5 150 - 450 [facility] RDW RBC Auto-Rto 16.3 % Normal 5 12.1 - 17.7 [facility] WBC # Bld Auto 3.3 K/mcL Below low normal 5 4 - 10.5 [facility] RBC # Bld Auto 2.45 M/mcL Below low normal 5 4.7 - 6 [facility] MCV RBC Auto 90.8 FL Normal 5 78 - 100 [facility] Hgb Bld-mCnc 7.4 g/dL Below low normal 5 13.5 - 18 [facility] Glucose Bld-mCnc 404.0 mg/dL Above high normal 5 70 - 199 [facility] Glucose Bld-mCnc 390.0 mg/dL Above high normal 5 70 - 199 [facility] Glucose Bld-mCnc 321.0 mg/dL Above high normal 5 70 - 199 [facility] Glucose Bld-mCnc 340.0 mg/dL Above high normal 5 70 - 199 [facility] Glucose Bld-mCnc 247.0 mg/dL Above high normal 5 70 - 199 [facility] Glucose Bld-mCnc 252.0 mg/dL Above high normal 5 70 - 199 [facility] MCH RBC Qn Auto 30.3 pcg Normal 5 25 - 33 [facility] RDW RBC Auto-Rto 16.4 % Normal 5 12.1 - 17.7 [facility] WBC # Bld Auto 3.7 K/mcL Below low normal 5 4 - 10.5 [facility] RBC # Bld Auto 2.47 M/mcL Below low normal 5 4.7 - 6 [facility] MCHC RBC Auto-mCnc 33.3 g/dL Normal 5 32 - 36 [facility] MCV RBC Auto 90.8 FL Normal 5 78 - 100 [facility] Platelet # Bld Auto 96.0 K/mcL Below low normal 07/21 5 150 - 450 [facility] Hgb Bld-mCnc 7.5 g/dL Below low normal 5 13.5 - 18 [facility] Hct VFr Bld Auto 22.5 % Below low normal 02 5 40 - 54 [facility] PMV Bld Auto 8.7 FL Normal 5 7.4 - 11.4 [facility] Glucose Bld-mCnc 335.0 mg/dL Above high normal 5 70 - 199 [facility] Glucose Bld-mCnc 180.0 mg/dL Normal 5 70 - 199 [facility] Glucose Bld-mCnc 194.0 mg/dL Normal 5 70 - 199 [facility] Hgb Bld-mCnc 7.5 g/dL Below low normal 5 13.5 - 18 [facility] Hct VFr Bld Auto 22.6 % Below low normal 02 5 40 - 54 [facility] Glucose Bld-mCnc 249.0 mg/dL Above high normal 5 70 - 199 [facility] Glucose Bld-mCnc 161.0 mg/dL Normal 5 70 - 199 [facility] MCV RBC Auto 90.7 FL Normal 5 78 - 100 [facility] Hct VFr Bld Auto 22.7 % Below low normal 02 5 40 - 54 [facility] MCHC RBC Auto-mCnc 33.3 g/dL Normal 5 32 - 36 [facility] RBC # Bld Auto 2.51 M/mcL Below low normal 5 4.7 - 6 [facility] Hgb Bld-mCnc 7.6 g/dL Below low normal 5 13.5 - 18 [facility] PMV Bld Auto 8.7 FL Normal 5 7.4 - 11.4 [facility] RDW RBC Auto-Rto 16.0 % Normal 5 12.1 - 17.7 [facility] WBC # Bld Auto 2.9 K/mcL Below low normal 5 4 - 10.5 [facility] MCH RBC Qn Auto 30.2 pcg Normal 5 25 - 33 [facility] Platelet # Bld Auto 89.0 K/mcL Below low normal 07/21 5 150 - 450 [facility] Glucose Bld-mCnc 214.0 mg/dL Above high normal 5 70 - 199 [facility] MCHC RBC Auto-mCnc 33.5 g/dL Normal 5 32 - 36 [facility] Platelet # Bld Auto 88.0 K/mcL Below low normal 07/21 5 150 - 450 [facility] Hct VFr Bld Auto 23.5 % Below low normal 02 5 40 - 54 [facility] MCV RBC Auto 90.5 FL Normal 5 78 - 100 [facility] PMV Bld Auto 8.7 FL Normal 5 7.4 - 11.4 [facility] Hgb Bld-mCnc 7.9 g/dL Below low normal 5 13.5 - 18 [facility] MCH RBC Qn Auto 30.3 pcg Normal 5 25 - 33 [facility] RBC # Bld Auto 2.6 M/mcL Below low normal 5 4.7 - 6 [facility] RDW RBC Auto-Rto 16.1 % Normal 5 12.1 - 17.7 [facility] WBC # Bld Auto 2.9 K/mcL Below low normal 5 4 - 10.5 [facility] Glucose Bld-mCnc 191.0 mg/dL Normal 5 70 - 199 [facility] Glucose Bld-mCnc 178.0 mg/dL Normal 5 70 - 199 [facility] Glucose Bld-mCnc 190.0 mg/dL Normal 5 70 - 199 [facility] MCH RBC Qn Auto 29.8 pcg Normal 5 25 - 33 [facility] Platelet # Bld Auto 84.0 K/mcL Below low normal 07/21 5 150 - 450 [facility] PMV Bld Auto 8.9 FL Normal 5 7.4 - 11.4 [facility] MCHC RBC Auto-mCnc 33.0 g/dL Normal 5 32 - 36 [facility] RDW RBC Auto-Rto 16.5 % Normal 5 12.1 - 17.7 [facility] Hct VFr Bld Auto 20.6 % Below low normal 02 5 40 - 54 [facility] WBC # Bld Auto 2.7 K/mcL Below low normal 5 4 - 10.5 [facility] RBC # Bld Auto 2.28 M/mcL Below low normal 5 4.7 - 6 [facility] MCV RBC Auto 90.4 FL Normal 5 78 - 100 [facility] Hgb Bld-mCnc 6.8 g/dL Critically low 5 13.5 - 18 [facility] Glucose Bld-mCnc 215.0 mg/dL Above high normal 5 70 - 199 [facility] Glucose Bld-mCnc 156.0 mg/dL Normal 5 70 - 199 [facility] Platelet # Bld Auto 85.0 K/mcL Below low normal 07/21 5 150 - 450 [facility] Hgb Bld-mCnc 7.2 g/dL Below low normal 5 13.5 - 18 [facility] Hct VFr Bld Auto 21.8 % Below low normal 02 5 40 - 54 [facility] RBC # Bld Auto 2.44 M/mcL Below low normal 5 4.7 - 6 [facility] PMV Bld Auto 8.8 FL Normal 5 7.4 - 11.4 [facility] MCHC RBC Auto-mCnc 33.1 g/dL Normal 5 32 - 36 [facility] RDW RBC Auto-Rto 16.3 % Normal 5 12.1 - 17.7 [facility] WBC # Bld Auto 3.5 K/mcL Below low normal 5 4 - 10.5 [facility] MCV RBC Auto 89.6 FL Normal 5 78 - 100 [facility] MCH RBC Qn Auto 29.6 pcg Normal 5 25 - 33 [facility] Glucose Bld-mCnc 139.0 mg/dL Normal 5 70 - 199 [facility] Anion Gap SerPl-sCnc 9.0 Normal 5 5 - 14 [facility] Potassium SerPl-sCnc 3.7 mmol/L Normal 5 3.5 - 5.1 [facility] BUN SerPl-mCnc 58.0 mg/dL Above high normal 08/06/19 2 5 9 - 20 [facility] Glucose SerPl-mCnc 134.0 mg/dL Normal 5 70 - 199 [facility] Calcium SerPl-mCnc 8.4 mg/dL Normal 5 8.4 - 10.2 [facility] Chloride SerPl-sCnc 103.0 mmol/L Normal 08/06/19 2 5 98 - 107 [facility] BUN/Creat SerPl 32.2 Above high normal 02 5 12 - 20 [facility] eGFRcr SerPlBld CKD-EPI 2020 44.0 mL/min/1.73m2 Below low normal 5 - [facility] CO2 SerPl-sCnc 24.0 mmol/L Normal 5 24 - 32 [facility] Creat SerPl-mCnc 1.8 mg/dL Above high normal 5 0.7 - 1.3 [facility] Sodium SerPl-sCnc 136.0 mmol/L Normal 5 135 - 145 [facility] Glucose Bld-mCnc 160.0 mg/dL Normal 5 70 - 199 [facility] PMV Bld Auto 8.5 FL Normal 5 7.4 - 11.4 [facility] MCV RBC Auto 89.9 FL Normal 5 78 - 100 [facility] Platelet # Bld Auto 90.0 K/mcL Below low normal 07/21 5 150 - 450 [facility] Eosinophil/leuk NFr Bld Auto 4.4 % Normal 5 0 - 6 [facility] Basophils/leuk NFr Bld Auto 2.1 % Above high normal 5 0 - 2 [facility] Lymphocytes # Bld Auto 0.9 K/mcL Below low normal 5 1 - 3.2 [facility] MCH RBC Qn Auto 29.9 pcg Normal 5 25 - 33 [facility] RDW RBC Auto-Rto 16.0 % Normal 5 12.1 - 17.7 [facility] Hgb Bld-mCnc 7.8 g/dL Below low normal 5 13.5 - 18 [facility] MCHC RBC Auto-mCnc 33.3 g/dL Normal 5 32 - 36 [facility] Lymphocytes/leuk NFr Bld Auto 21.3 % Normal 5 20 - 48 [facility] Eosinophil # Bld Auto 0.2 K/mcL Normal 5 0 - 0.5 [facility] Neutrophils/leuk NFr Bld Auto 62.6 % Normal 5 44 - 74 [facility] Neutrophils # Bld Auto 2.5 K/mcL Normal 5 1.8 - 7.8 [facility] Basophils # Bld Auto 0.1 K/mcL Normal 5 0 - 0.2 [facility] Monocytes # Bld Auto 0.4 K/mcL Normal 5 0 - 0.8 [facility] WBC # Bld Auto 4.0 K/mcL Normal 5 4 - 10.5 [facility] RBC # Bld Auto 2.6 M/mcL Below low normal 5 4.7 - 6 [facility] Monocytes/leuk NFr Bld Auto 9.6 % Normal 5 2 - 12 [facility] Hct VFr Bld Auto 23.4 % Below low normal 02 5 40 - 54 [facility] Retics/100 RBC NFr Auto 6.6 % Above high normal 5 0.7 - 1.7 [facility] Folate SerPl-mCnc 13.7 ng/ml Normal 5 - [facility] Vit B12 SerPl-mCnc 1413.0 pcg/mL Above high normal 5 180 - 914 [facility] Iron SerPl-mCnc 57.0 mcg/dL Normal 5 49 - 181 [facility] TIBC SerPl-mCnc 418.0 mcg/dL Normal 5 250 - 450 [facility] UIBC SerPl-mCnc 361.0 mcg/dL Above high normal 02 5 155 - 355 [facility] Iron Satn MFr SerPl 14.0 % Below low normal 07/21 5 20 - 45 [facility] Anion Gap SerPl-sCnc 9.0 Normal 5 5 - 14 [facility] CO2 SerPl-sCnc 25.0 mmol/L Normal 5 24 - 32 [facility] BUN SerPl-mCnc 58.0 mg/dL Above high normal 08/06/19 2 5 9 - 20 [facility] BUN/Creat SerPl 32.2 Above high normal 02 5 12 - 20 [facility] eGFRcr SerPlBld CKD-EPI 2020 44.0 mL/min/1.73m2 Below low normal 5 - [facility] Sodium SerPl-sCnc 137.0 mmol/L Normal 5 135 - 145 [facility] Glucose SerPl-mCnc 143.0 mg/dL Normal 5 70 - 199 [facility] Calcium SerPl-mCnc 8.9 mg/dL Normal 5 8.4 - 10.2 [facility] Potassium SerPl-sCnc 3.8 mmol/L Normal 5 3.5 - 5.1 [facility] Creat SerPl-mCnc 1.8 mg/dL Above high normal 5 0.7 - 1.3 [facility] Chloride SerPl-sCnc 103.0 mmol/L Normal 08/06/19 2 5 98 - 107 [facility] INR PPP 1.9 Above high normal 5 0.8 - 1.1 [facility] PT Bld 22.0 sec Above high normal 5 10.5 - 13.3 [facility] aPTT PPP 37.1 sec Above high normal 5 25 - 37 [facility] ABO Group Bld A Normal 5 [facility] Bld gp Ab Scn SerPl Ql Negative Normal 5 [facility] Rh Bld Positive Normal 5 [facility] ABO Group Bld A Normal 5 [facility] Bld gp Ab Scn SerPl Ql Negative Normal 5 [facility] Rh Bld Positive Normal 5 [facility] Neutrophils # Bld Auto 2.58 K/mcL Normal 5 1.8 - 7.8 [facility] Basophils/leuk NFr Bld Auto 1.1 % Normal 5 0 - 2 [facility] Basophils # Bld Auto 0.04 K/mcL Normal 5 0 - 0.2 [facility] RDW RBC Auto-Rto 15.7 % Normal 5 12.1 - 17.7 [facility] Hct VFr Bld Auto 21.1 % Below low normal 02 5 40 - 54 [facility] Hgb Bld-mCnc 6.4 g/dL Critically low 5 13.5 - 18 [facility] Monocytes/leuk NFr Bld Auto 7.5 % Normal 5 2 - 12 [facility] Monocytes # Bld Auto 0.27 K/mcL Normal 5 0 - 0.8 [facility] RBC # Bld Auto 2.2 M/mcL Below low normal 5 4.7 - 6 [facility] MCV RBC Auto 95.9 FL Normal 5 78 - 100 [facility] PMV Bld Auto 10.4 FL Normal 5 7.4 - 11.4 [facility] WBC # Bld Auto 3.6 K/mcL Below low normal 5 4 - 10.5 [facility] Neutrophils/leuk NFr Bld Auto 71.5 % Normal 5 44 - 74 [facility] Platelet # Bld Auto 74.0 K/mcL Below low normal 07/21 5 150 - 450 [facility] Eosinophil/leuk NFr Bld Auto 3.3 % Normal 5 0 - 6 [facility] Lymphocytes/leuk NFr Bld Auto 16.3 % Below low normal 5 20 - 48 [facility] MCHC RBC Auto-mCnc 30.3 g/dL Below low normal 08/04 5 32 - 36 [facility] Eosinophil # Bld Auto 0.12 K/mcL Normal 5 0 - 0.5 [facility] Lymphocytes # Bld Auto 0.59 K/mcL Below low normal 5 1 - 3.2 [facility] MCH RBC Qn Auto 29.1 pcg Normal 5 25 - 33 [facility] Glucose Bld-mCnc 256.0 mg/dL Above high normal 5 70 - 199 [facility] Glucose Bld-mCnc 106.0 mg/dL Normal 5 70 - 199 [facility] Glucose SerPl-mCnc 125.0 mg/dL Above high normal 5 70 - 99 [facility] Creat SerPl-mCnc 1.5 mg/dL Above high normal 5 0.7 - 1.3 [facility] Chloride SerPl-sCnc 107.0 mmol/L Normal 07/25/19 2 5 98 - 107 [facility] BUN/Creat SerPl 30.0 Above high normal 02 5 12 - 20 [facility] Anion Gap SerPl-sCnc 8.0 Normal 5 5 - 14 [facility] eGFRcr SerPlBld CKD-EPI 2020 54.0 mL/min/1.73m2 Below low normal 5 - [facility] Calcium SerPl-mCnc 8.7 mg/dL Normal 5 8.4 - 10.2 [facility] BUN SerPl-mCnc 45.0 mg/dL Above high normal 07/25/19 2 5 9 - 20 [facility] Sodium SerPl-sCnc 139.0 mmol/L Normal 5 135 - 145 [facility] Potassium SerPl-sCnc 4.1 mmol/L Normal 5 3.5 - 5.1 [facility] CO2 SerPl-sCnc 24.0 mmol/L Normal 5 24 - 32 [facility] Magnesium SerPl-mCnc 1.8 mg/dL Normal 5 1.7 - 2.8 [facility] MCV RBC Auto 90.5 FL Normal 5 78 - 100 [facility] PMV Bld Auto 7.8 FL Normal 5 7.4 - 11.4 [facility] Hgb Bld-mCnc 7.5 g/dL Below low normal 5 13.5 - 18 [facility] WBC # Bld Auto 2.5 K/mcL Below low normal 5 4 - 10.5 [facility] RDW RBC Auto-Rto 16.2 % Normal 5 12.1 - 17.7 [facility] RBC # Bld Auto 2.5 M/mcL Below low normal 5 4.7 - 6 [facility] MCH RBC Qn Auto 29.8 pcg Normal 5 25 - 33 [facility] MCHC RBC Auto-mCnc 32.9 g/dL Normal 5 32 - 36 [facility] Platelet # Bld Auto 91.0 K/mcL Below low normal 5 150 - 450 [facility] Hct VFr Bld Auto 22.7 % Below low normal 02 5 40 - 54 [facility] Glucose Bld-mCnc 175.0 mg/dL Normal 5 70 - 199 [facility] Glucose Bld-mCnc 167.0 mg/dL Normal 5 70 - 199 [facility] Hct VFr Bld Auto 20.0 % Below low normal 02 5 40 - 54 [facility] Hgb Bld-mCnc 6.5 g/dL Critically low 5 13.5 - 18 [facility] Glucose Bld-mCnc 178.0 mg/dL Normal 5 70 - 199 [facility] Glucose Bld-mCnc 165.0 mg/dL Normal 5 70 - 199 [facility] Glucose Bld-mCnc 144.0 mg/dL Normal 5 70 - 199 [facility] Glucose Bld-mCnc 199.0 mg/dL Normal 5 70 - 199 [facility] Est. average glucose Bld gHb Est-mCnc 85.0 mg/dL Normal 5 [facility] HbA1c MFr Bld 4.6 % Normal 5 - 5.7 [facility] Bilirub SerPl-mCnc 1.7 mg/dL Above high normal 5 0.3 - 1 [facility] AST SerPl-cCnc 20.0 unit/L Normal 5 5 - 40 [facility] Chloride SerPl-sCnc 103.0 mmol/L Normal 07/24/19 2 5 98 - 107 [facility] Creat SerPl-mCnc 1.9 mg/dL Above high normal 5 0.7 - 1.3 [facility] Calcium SerPl-mCnc 8.9 mg/dL Normal 5 8.4 - 10.2 [facility] BUN/Creat SerPl 30.0 Above high normal 02 5 12 - 20 [facility] ALT SerPl-cCnc 12.0 unit/L Normal 5 7 - 52 [facility] ALP SerPl-cCnc 137.0 unit/L Above high normal 07/24/19 2 5 34 - 104 [facility] BUN SerPl-mCnc 57.0 mg/dL Above high normal 07/24/19 2 5 9 - 20 [facility] eGFRcr SerPlBld CKD-EPI 2020 41.0 mL/min/1.73m2 Below low normal 5 - [facility] Sodium SerPl-sCnc 137.0 mmol/L Normal 5 135 - 145 [facility] Anion Gap SerPl-sCnc 9.0 Normal 5 5 - 14 [facility] Potassium SerPl-sCnc 4.3 mmol/L Normal 5 3.5 - 5.1 [facility] Prot SerPl-mCnc 5.5 g/dL Below low normal 07/24/19 2 5 6.4 - 8.5 [facility] Glucose SerPl-mCnc 165.0 mg/dL Above high normal 5 70 - 99 [facility] Albumin SerPl-mCnc 3.1 g/dL Below low normal 07/23 5 3.5 - 5 [facility] CO2 SerPl-sCnc 25.0 mmol/L Normal 5 24 - 32 [facility] Magnesium SerPl-mCnc 1.9 mg/dL Normal 5 1.7 - 2.8 [facility] WBC # Bld Auto 3.4 K/mcL Below low normal 5 4 - 10.5 [facility] Hct VFr Bld Auto 18.2 % Below low normal 02 5 40 - 54 [facility] Hgb Bld-mCnc 6.0 g/dL Critically low 5 13.5 - 18 [facility] MCHC RBC Auto-mCnc 32.8 g/dL Normal 5 32 - 36 [facility] Platelet # Bld Auto 97.0 K/mcL Below low normal 5 150 - 450 [facility] MCH RBC Qn Auto 30.1 pcg Normal 5 25 - 33 [facility] RBC # Bld Auto 1.98 M/mcL Below low normal 5 4.7 - 6 [facility] RDW RBC Auto-Rto 16.9 % Normal 5 12.1 - 17.7 [facility] PMV Bld Auto 8.0 FL Normal 5 7.4 - 11.4 [facility] MCV RBC Auto 91.9 FL Normal 5 78 - 100 [facility] Glucose Bld-mCnc 231.0 mg/dL Above high normal 5 70 - 199 [facility] Glucose Bld-mCnc 149.0 mg/dL Normal 5 70 - 199 [facility] Rh Bld Positive Normal 5 [facility] ABO Group Bld A Normal 5 [facility] Bld gp Ab Scn SerPl Ql Negative Normal 5 [facility] Lipase SerPl-cCnc 38.0 unit/L Normal 5 11 - 82 [facility] eGFRcr SerPlBld CKD-EPI 2020 44.0 mL/min/1.73m2 Below low normal 5 - [facility] Bilirub SerPl-mCnc 1.2 mg/dL Above high normal 5 0.3 - 1 [facility] Anion Gap SerPl-sCnc 10.0 Normal 5 5 - 14 [facility] Chloride SerPl-sCnc 105.0 mmol/L Normal 07/23/19 2 5 98 - 107 [facility] CO2 SerPl-sCnc 23.0 mmol/L Below low normal 5 24 - 32 [facility] Potassium SerPl-sCnc 4.2 mmol/L Normal 5 3.5 - 5.1 [facility] AST SerPl-cCnc 18.0 unit/L Normal 5 5 - 40 [facility] Prot SerPl-mCnc 5.7 g/dL Below low normal 07/23/19 2 5 6.4 - 8.5 [facility] Sodium SerPl-sCnc 138.0 mmol/L Normal 5 135 - 145 [facility] BUN/Creat SerPl 33.9 Above high normal 02 5 12 - 20 [facility] BUN SerPl-mCnc 61.0 mg/dL Above high normal 07/23/19 2 5 9 - 20 [facility] Glucose SerPl-mCnc 178.0 mg/dL Normal 5 70 - 199 [facility] Albumin SerPl-mCnc 3.3 g/dL Below low normal 07/22 5 3.5 - 5 [facility] ALT SerPl-cCnc 11.0 unit/L Normal 5 7 - 52 [facility] Calcium SerPl-mCnc 8.9 mg/dL Normal 5 8.4 - 10.2 [facility] Creat SerPl-mCnc 1.8 mg/dL Above high normal 5 0.7 - 1.3 [facility] ALP SerPl-cCnc 140.0 unit/L Above high normal 07/23/19 2 5 34 - 104 [facility] Magnesium SerPl-mCnc 1.7 mg/dL Normal 5 1.7 - 2.8 [facility] Phosphate SerPl-mCnc 3.9 mg/dL Normal 5 2.5 - 4.5 [facility] PT Bld 21.1 sec Above high normal 5 10.5 - 13.3 [facility] INR PPP 1.8 Above high normal 5 0.8 - 1.1 [facility] aPTT PPP 37.8 sec Above high normal 5 25 - 37 [facility] LACTIC ACID 1.0 mmol/L Normal 5 0.5 - 2.2 [facility] ABO Group Bld A Normal 5 [facility] Rh Bld Positive Normal 5 [facility] Bld gp Ab Scn SerPl Ql Negative Normal 5 [facility] Ferritin SerPl-mCnc 33.0 ng/mL Normal 07/23/19 2 5 20 - 250 [facility] UIBC SerPl-mCnc 218.0 mcg/dL Normal 5 155 - 355 [facility] Iron Satn MFr SerPl 46.0 % Above high normal 5 20 - 45 [facility] TIBC SerPl-mCnc 402.0 mcg/dL Normal 5 250 - 450 [facility] Iron SerPl-mCnc 184.0 mcg/dL Above high normal 02 5 49 - 181 [facility] WBC # Bld Auto 4.3 K/mcL Normal 5 4 - 10.5 [facility] Lymphocytes # Bld Auto 0.65 K/mcL Below low normal 5 1 - 3.2 [facility] Eosinophil/leuk NFr Bld Auto 3.0 % Normal 5 0 - 6 [facility] RDW RBC Auto-Rto 18.1 % Above high normal 5 12.1 - 17.7 [facility] RBC # Bld Auto 1.62 M/mcL Below low normal 5 4.7 - 6 [facility] MCH RBC Qn Auto 29.6 pcg Normal 5 25 - 33 [facility] MCHC RBC Auto-mCnc 29.6 g/dL Below low normal 07/22 5 32 - 36 [facility] Hct VFr Bld Auto 16.2 % Below low normal 02 5 40 - 54 [facility] Basophils/leuk NFr Bld Auto 0.7 % Normal 5 0 - 2 [facility] Eosinophil # Bld Auto 0.13 K/mcL Normal 5 0 - 0.5 [facility] Lymphocytes/leuk NFr Bld Auto 15.2 % Below low normal 5 20 - 48 [facility] Hgb Bld-mCnc 4.8 g/dL Critically low 5 13.5 - 18 [facility] Basophils # Bld Auto 0.03 K/mcL Normal 5 0 - 0.2 [facility] MCV RBC Auto 100.0 FL Normal 5 78 - 100 [facility] Monocytes/leuk NFr Bld Auto 9.8 % Normal 5 2 - 12 [facility] Neutrophils/leuk NFr Bld Auto 70.6 % Normal 5 44 - 74 [facility] PMV Bld Auto 9.6 FL Normal 5 7.4 - 11.4 [facility] Platelet # Bld Auto 105.0 K/mcL Below low normal 04/0 5 150 - 450 [facility] Neutrophils # Bld Auto 3.01 K/mcL Normal 5 1.8 - 7.8 [facility] Monocytes # Bld Auto 0.42 K/mcL Normal 5 0 - 0.8 [facility] Bld gp Ab Scn SerPl Ql Negative Normal 5 [facility] Rh Bld Positive Normal 5 [facility] ABO Group Bld A Normal 5 [facility] PMV Bld Auto 9.7 FL Normal 5 7.4 - 11.4 [facility] Monocytes # Bld Auto 0.26 K/mcL Normal 5 0 - 0.8 [facility] Neutrophils # Bld Auto 2.56 K/mcL Normal 5 1.8 - 7.8 [facility] MCH RBC Qn Auto 29.8 pcg Normal 5 25 - 33 [facility] Basophils # Bld Auto 0.03 K/mcL Normal 5 0 - 0.2 [facility] Lymphocytes # Bld Auto 0.53 K/mcL Below low normal 5 1 - 3.2 [facility] Hct VFr Bld Auto 21.1 % Below low normal 02 5 40 - 54 [facility] RBC # Bld Auto 2.25 M/mcL Below low normal 5 4.7 - 6 [facility] Eosinophil # Bld Auto 0.17 K/mcL Normal 5 0 - 0.5 [facility] Monocytes/leuk NFr Bld Auto 7.3 % Normal 5 2 - 12 [facility] Basophils/leuk NFr Bld Auto 0.8 % Normal 5 0 - 2 [facility] Hgb Bld-mCnc 6.7 g/dL Critically low 5 13.5 - 18 [facility] Neutrophils/leuk NFr Bld Auto 71.9 % Normal 5 44 - 74 [facility] MCV RBC Auto 93.8 FL Normal 5 78 - 100 [facility] RDW RBC Auto-Rto 16.9 % Normal 5 12.1 - 17.7 [facility] Lymphocytes/leuk NFr Bld Auto 14.9 % Below low normal 5 20 - 48 [facility] Platelet # Bld Auto 87.0 K/mcL Below low normal 06/20 5 150 - 450 [facility] WBC # Bld Auto 3.6 K/mcL Below low normal 5 4 - 10.5 [facility] MCHC RBC Auto-mCnc 31.8 g/dL Below low normal 07/07 5 32 - 36 [facility] Eosinophil/leuk NFr Bld Auto 4.8 % Normal 5 0 - 6 [facility] ABO Group Bld A Normal 5 [facility] Bld gp Ab Scn SerPl Ql Negative Normal 5 [facility] Rh Bld Positive Normal 5 [facility] WBC # Bld Auto 4.0 K/mcL Normal 5 4 - 10.5 [facility] Basophils # Bld Auto <0.03 K/mcL Normal 5 0 - 0.2 [facility] Monocytes # Bld Auto 0.33 K/mcL Normal 5 0 - 0.8 [facility] RDW RBC Auto-Rto 16.9 % Normal 5 12.1 - 17.7 [facility] Hgb Bld-mCnc 7.4 g/dL Below low normal 5 13.5 - 18 [facility] Neutrophils/leuk NFr Bld Auto 72.1 % Normal 5 44 - 74 [facility] MCV RBC Auto 92.1 FL Normal 5 78 - 100 [facility] MCH RBC Qn Auto 29.2 pcg Normal 5 25 - 33 [facility] Platelet # Bld Auto 109.0 K/mcL Below low normal 06/20 5 150 - 450 [facility] PMV Bld Auto 9.8 FL Normal 5 7.4 - 11.4 [facility] Lymphocytes # Bld Auto 0.58 K/mcL Below low normal 5 1 - 3.2 [facility] Lymphocytes/leuk NFr Bld Auto 14.5 % Below low normal 5 20 - 48 [facility] Hct VFr Bld Auto 23.3 % Below low normal 02 5 40 - 54 [facility] RBC # Bld Auto 2.53 M/mcL Below low normal 5 4.7 - 6 [facility] Basophils/leuk NFr Bld Auto 0.5 % Normal 5 0 - 2 [facility] Monocytes/leuk NFr Bld Auto 8.3 % Normal 5 2 - 12 [facility] Neutrophils # Bld Auto 2.88 K/mcL Normal 5 1.8 - 7.8 [facility] Eosinophil/leuk NFr Bld Auto 3.8 % Normal 5 0 - 6 [facility] Eosinophil # Bld Auto 0.15 K/mcL Normal 5 0 - 0.5 [facility] MCHC RBC Auto-mCnc 31.8 g/dL Below low normal 07/01 5 32 - 36 [facility] M Protein SerPl Elph-mCnc 6.4 g/dL Normal 5 6.4 - 8.2 [facility] Albumin MFr SerPl Elph 58.6 % Normal 5 52.9 - 66.9 [facility] B-Globulin MFr SerPl Elph 12.6 % Normal 5 8.5 - 13.7 [facility] Alpha2 Glob MFr SerPl Elph 9.0 % Normal 5 7.5 - 13.4 [facility] Albumin SerPl-mCnc 3.8 g/dL Normal 5 3.7 - 4.9 [facility] B-Globulin SerPl Elph-mCnc 0.8 g/dL Normal 5 0.6 - 1 [facility] Alpha2 Glob SerPl Elph-mCnc 0.6 g/dL Normal 5 0.5 - 0.9 [facility] Gamma glob SerPl Elph-mCnc 0.9 g/dL Normal 5 0.6 - 1.4 [facility] Alpha1 Glob SerPl Elph-mCnc 0.4 g/dL Normal 5 0.2 - 0.4 [facility] Prot Pattern SerPl Elph-Imp See Below Normal 5 [facility] Gamma glob MFr SerPl Elph 13.6 % Normal 5 8.8 - 19.2 [facility] Alpha1 Glob MFr SerPl Elph 6.2 % Above high normal 5 3.3 - 5.8 [facility] Interpretation SerPl JANIS-Imp See Below Normal 5 [facility] Lambda LC Free Ser Neph-mCnc 4.46 mg/dL Above high normal 5 0.57 - 2.63 [facility] [place] LC Free/Lambda Free Ser Neph 1.57 Normal 5 0.26 - 1.65 [facility] [place] LC Free Ser Neph-mCnc 7.02 mg/dL Above high normal 5 0.33 - 1.94 [facility] IgA SerPl-mCnc 236.0 mg/dL Normal 5 66 - 433 [facility] IgM SerPl-mCnc 120.0 mg/dL Normal 5 45 - 281 [facility] IgG SerPl-mCnc 904.0 mg/dL Normal 5 635 - 1741 [facility] Glucose Bld-mCnc 114.0 mg/dL Normal 5 70 - 199 [facility] Phosphate SerPl-mCnc 4.1 mg/dL Normal 5 2.5 - 4.5 [facility] BUN/Creat SerPl 29.4 Above high normal 02 5 12 - 20 [facility] Sodium SerPl-sCnc 136.0 mmol/L Normal 5 135 - 145 [facility] BUN SerPl-mCnc 53.0 mg/dL Above high normal 06/30/19 2 5 9 - 20 [facility] Calcium SerPl-mCnc 9.2 mg/dL Normal 5 8.4 - 10.2 [facility] CO2 SerPl-sCnc 25.0 mmol/L Normal 5 24 - 32 [facility] eGFRcr SerPlBld CKD-EPI 2020 44.0 mL/min/1.73m2 Below low normal 5 - [facility] Chloride SerPl-sCnc 101.0 mmol/L Normal 06/30/19 2 5 98 - 107 [facility] Anion Gap SerPl-sCnc 10.0 Normal 5 5 - 14 [facility] Creat SerPl-mCnc 1.8 mg/dL Above high normal 5 0.7 - 1.3 [facility] Potassium SerPl-sCnc 4.3 mmol/L Normal 5 3.5 - 5.1 [facility] Glucose SerPl-mCnc 137.0 mg/dL Normal 5 70 - 199 [facility] Magnesium SerPl-mCnc 1.6 mg/dL Below low normal 5 1.7 - 2.8 [facility] Monocytes/leuk NFr Bld Auto 9.8 % Normal 5 2 - 12 [facility] RDW RBC Auto-Rto 18.8 % Above high normal 5 12.1 - 17.7 [facility] MCH RBC Qn Auto 29.1 pcg Normal 5 25 - 33 [facility] MCV RBC Auto 88.4 FL Normal 5 78 - 100 [facility] Neutrophils/leuk NFr Bld Auto 58.6 % Normal 5 44 - 74 [facility] Monocytes # Bld Auto 0.4 K/mcL Normal 5 0 - 0.8 [facility] Basophils # Bld Auto 0.0 K/mcL Normal 5 0 - 0.2 [facility] PMV Bld Auto 7.5 FL Normal 5 7.4 - 11.4 [facility] Neutrophils # Bld Auto 2.2 K/mcL Normal 5 1.8 - 7.8 [facility] Hct VFr Bld Auto 24.2 % Below low normal 02 5 40 - 54 [facility] Basophils/leuk NFr Bld Auto 1.1 % Normal 5 0 - 2 [facility] WBC # Bld Auto 3.7 K/mcL Below low normal 5 4 - 10.5 [facility] Lymphocytes/leuk NFr Bld Auto 25.8 % Normal 5 20 - 48 [facility] RBC # Bld Auto 2.74 M/mcL Below low normal 5 4.7 - 6 [facility] Eosinophil/leuk NFr Bld Auto 4.7 % Normal 5 0 - 6 [facility] Lymphocytes # Bld Auto 1.0 K/mcL Normal 5 1 - 3.2 [facility] MCHC RBC Auto-mCnc 33.0 g/dL Normal 5 32 - 36 [facility] Platelet # Bld Auto 128.0 K/mcL Below low normal 06/20 5 150 - 450 [facility] Eosinophil # Bld Auto 0.2 K/mcL Normal 5 0 - 0.5 [facility] Hgb Bld-mCnc 8.0 g/dL Below low normal 5 13.5 - 18 [facility] Hgb Bld-mCnc 8.0 g/dL Below low normal 5 13.5 - 18 [facility] Hct VFr Bld Auto 23.8 % Below low normal 02 5 40 - 54 [facility] Glucose Bld-mCnc 195.0 mg/dL Normal 5 70 - 199 [facility] Glucose Bld-mCnc 152.0 mg/dL Normal 5 70 - 199 [facility] Glucose Bld-mCnc 225.0 mg/dL Above high normal 5 70 - 199 [facility] Glucose Bld-mCnc 82.0 mg/dL Normal 5 70 - 199 [facility] Glucose Bld-mCnc 186.0 mg/dL Normal 5 70 - 199 [facility] HbA1c MFr Bld 4.9 % Normal 5 - 5.7 [facility] Est. average glucose Bld gHb Est-mCnc 94.0 mg/dL Normal 5 [facility] CO2 SerPl-sCnc 25.0 mmol/L Normal 5 24 - 32 [facility] Anion Gap SerPl-sCnc 10.0 Normal 5 5 - 14 [facility] Potassium SerPl-sCnc 4.3 mmol/L Normal 5 3.5 - 5.1 [facility] Calcium SerPl-mCnc 9.2 mg/dL Normal 5 8.4 - 10.2 [facility] Chloride SerPl-sCnc 103.0 mmol/L Normal 06/29/19 2 5 98 - 107 [facility] BUN SerPl-mCnc 51.0 mg/dL Above high normal 06/29/19 2 5 9 - 20 [facility] Glucose SerPl-mCnc 119.0 mg/dL Above high normal 5 70 - 99 [facility] BUN/Creat SerPl 34.0 Above high normal 02 5 12 - 20 [facility] eGFRcr SerPlBld CKD-EPI 2020 54.0 mL/min/1.73m2 Below low normal 5 - [facility] Creat SerPl-mCnc 1.5 mg/dL Above high normal 5 0.7 - 1.3 [facility] Sodium SerPl-sCnc 138.0 mmol/L Normal 5 135 - 145 [facility] Phosphate SerPl-mCnc 3.9 mg/dL Normal 5 2.5 - 4.5 [facility] Magnesium SerPl-mCnc 1.7 mg/dL Normal 5 1.7 - 2.8 [facility] Hgb Bld-mCnc 7.8 g/dL Below low normal 5 13.5 - 18 [facility] Lymphocytes # Bld Auto 0.7 K/mcL Below low normal 5 1 - 3.2 [facility] Platelet # Bld Auto 135.0 K/mcL Below low normal 5 150 - 450 [facility] Lymphocytes/leuk NFr Bld Auto 19.8 % Below low normal 5 20 - 48 [facility] MCH RBC Qn Auto 29.5 pcg Normal 5 25 - 33 [facility] MCV RBC Auto 87.9 FL Normal 5 78 - 100 [facility] Eosinophil # Bld Auto 0.2 K/mcL Normal 5 0 - 0.5 [facility] Monocytes/leuk NFr Bld Auto 7.9 % Normal 5 2 - 12 [facility] PMV Bld Auto 7.5 FL Normal 5 7.4 - 11.4 [facility] RDW RBC Auto-Rto 18.1 % Above high normal 5 12.1 - 17.7 [facility] RBC # Bld Auto 2.63 M/mcL Below low normal 5 4.7 - 6 [facility] Basophils # Bld Auto 0.0 K/mcL Normal 5 0 - 0.2 [facility] Neutrophils # Bld Auto 2.3 K/mcL Normal 5 1.8 - 7.8 [facility] Monocytes # Bld Auto 0.3 K/mcL Normal 5 0 - 0.8 [facility] Neutrophils/leuk NFr Bld Auto 66.0 % Normal 5 44 - 74 [facility] WBC # Bld Auto 3.5 K/mcL Below low normal 5 4 - 10.5 [facility] Basophils/leuk NFr Bld Auto 1.0 % Normal 5 0 - 2 [facility] Hct VFr Bld Auto 23.1 % Below low normal 02 5 40 - 54 [facility] MCHC RBC Auto-mCnc 33.6 g/dL Normal 5 32 - 36 [facility] Eosinophil/leuk NFr Bld Auto 5.3 % Normal 5 0 - 6 [facility] Glucose Bld-mCnc 147.0 mg/dL Normal 5 70 - 199 [facility] Glucose Bld-mCnc 98.0 mg/dL Normal 5 70 - 199 [facility] aPTT PPP 41.1 sec Above high normal 5 25 - 37 [facility] Hct VFr Bld Auto 25.7 % Below low normal 02 5 40 - 54 [facility] Hgb Bld-mCnc 8.6 g/dL Below low normal 5 13.5 - 18 [facility] Glucose Bld-mCnc 93.0 mg/dL Normal 5 70 - 199 [facility] Glucose Bld-mCnc 126.0 mg/dL Normal 5 70 - 199 [facility] Hct VFr Bld Auto 19.3 % Below low normal 02 5 40 - 54 [facility] RBC # Bld Auto 2.22 M/mcL Below low normal 5 4.7 - 6 [facility] Eosinophil # Bld Auto 0.1 K/mcL Normal 5 0 - 0.5 [facility] Lymphocytes # Bld Auto 0.5 K/mcL Below low normal 5 1 - 3.2 [facility] RDW RBC Auto-Rto 18.1 % Above high normal 5 12.1 - 17.7 [facility] Neutrophils # Bld Auto 1.8 K/mcL Normal 5 1.8 - 7.8 [facility] Basophils # Bld Auto 0.0 K/mcL Normal 5 0 - 0.2 [facility] WBC # Bld Auto 2.7 K/mcL Below low normal 5 4 - 10.5 [facility] Neutrophils/leuk NFr Bld Auto 65.0 % Normal 5 44 - 74 [facility] PMV Bld Auto 7.5 FL Normal 5 7.4 - 11.4 [facility] MCV RBC Auto 86.8 FL Normal 5 78 - 100 [facility] Hgb Bld-mCnc 6.5 g/dL Critically low 5 13.5 - 18 [facility] Basophils/leuk NFr Bld Auto 1.1 % Normal 5 0 - 2 [facility] Monocytes/leuk NFr Bld Auto 8.6 % Normal 5 2 - 12 [facility] Platelet # Bld Auto 124.0 K/mcL Below low normal 5 150 - 450 [facility] MCHC RBC Auto-mCnc 33.5 g/dL Normal 5 32 - 36 [facility] Monocytes # Bld Auto 0.2 K/mcL Normal 5 0 - 0.8 [facility] Lymphocytes/leuk NFr Bld Auto 19.8 % Below low normal 5 20 - 48 [facility] Eosinophil/leuk NFr Bld Auto 5.5 % Normal 5 0 - 6 [facility] MCH RBC Qn Auto 29.1 pcg Normal 5 25 - 33 [facility] PT Bld 18.2 sec Above high normal 5 10.5 - 13.3 [facility] INR PPP 1.5 Above high normal 5 0.8 - 1.1 [facility] eGFRcr SerPlBld CKD-EPI 2020 50.0 mL/min/1.73m2 Below low normal 5 - [facility] Chloride SerPl-sCnc 103.0 mmol/L Normal 06/28/19 2 5 98 - 107 [facility] CO2 SerPl-sCnc 25.0 mmol/L Normal 5 24 - 32 [facility] Glucose SerPl-mCnc 115.0 mg/dL Normal 5 70 - 199 [facility] BUN SerPl-mCnc 54.0 mg/dL Above high normal 06/28/19 2 5 9 - 20 [facility] Potassium SerPl-sCnc 4.0 mmol/L Normal 5 3.5 - 5.1 [facility] Creat SerPl-mCnc 1.6 mg/dL Above high normal 5 0.7 - 1.3 [facility] BUN/Creat SerPl 33.8 Above high normal 02 5 12 - 20 [facility] Calcium SerPl-mCnc 9.1 mg/dL Normal 5 8.4 - 10.2 [facility] Anion Gap SerPl-sCnc 9.0 Normal 5 5 - 14 [facility] Sodium SerPl-sCnc 137.0 mmol/L Normal 5 135 - 145 [facility] Magnesium SerPl-mCnc 1.7 mg/dL Normal 5 1.7 - 2.8 [facility] Phosphate SerPl-mCnc 3.7 mg/dL Normal 5 2.5 - 4.5 [facility] Glucose Bld-mCnc 149.0 mg/dL Normal 5 70 - 199 [facility] Hct VFr Bld Auto 22.6 % Below low normal 02 5 40 - 54 [facility] Hgb Bld-mCnc 7.6 g/dL Below low normal 5 13.5 - 18 [facility] PT Bld 22.3 sec Above high normal 5 10.5 - 13.3 [facility] INR PPP 1.9 Above high normal 5 0.8 - 1.1 [facility] Vit B12 SerPl-mCnc 1381.0 pcg/mL Above high normal 5 180 - 914 [facility] Folate SerPl-mCnc 16.3 ng/ml Normal 5 - [facility] MCV RBC Auto 87.4 FL Normal 5 78 - 100 [facility] RDW RBC Auto-Rto 18.4 % Above high normal 5 12.1 - 17.7 [facility] Hct VFr Bld Auto 17.9 % Below low normal 02 5 40 - 54 [facility] RBC # Bld Auto 2.05 M/mcL Below low normal 5 4.7 - 6 [facility] WBC # Bld Auto 3.1 K/mcL Below low normal 5 4 - 10.5 [facility] PMV Bld Auto 7.5 FL Normal 5 7.4 - 11.4 [facility] MCH RBC Qn Auto 29.1 pcg Normal 5 25 - 33 [facility] Hgb Bld-mCnc 6.0 g/dL Critically low 5 13.5 - 18 [facility] Platelet # Bld Auto 124.0 K/mcL Below low normal 5 150 - 450 [facility] MCHC RBC Auto-mCnc 33.3 g/dL Normal 5 32 - 36 [facility] Lymphocytes # Bld Manual 0.47 K/mcL Below low normal 5 1 - 3.2 [facility] Neuts Seg/leuk NFr Bld Manual 72.0 % Normal 5 44 - 74 [facility] Eosinophil/leuk NFr Bld Manual 5.0 % Normal 5 0 - 6 [facility] Eosinophil # Bld Manual 0.16 K/mcL Normal 5 0 - 0.5 [facility] Monocytes/leuk NFr Bld Manual 7.0 % Normal 5 2 - 12 [facility] Neuts Seg # Bld Manual 2.23 K/mcL Normal 5 1.8 - 7.8 [facility] Basophils/leuk NFr Bld Manual 1.0 % Normal 5 0 - 2 [facility] Monocytes # Bld Manual 0.22 K/mcL Normal 5 0 - 0.8 [facility] Lymphocytes/leuk NFr Bld Manual 15.0 % Below low normal 5 20 - 48 [facility] Macrocytes Present Occasional Normal 5 [facility] Basophils # Bld Manual 0.03 K/mcL Normal 5 0 - 0.2 [facility] Lg Platelets Bld Ql Auto Platelets Appear Decreased Normal 5 [facility] Microcytes Present Present Normal 5 [facility] Polychromasia Present Occasional Normal 5 [facility] ABO Group Bld A Normal 5 [facility] Bld gp Ab Scn SerPl Ql Negative Normal 5 [facility] Rh Bld Positive Normal 5 [facility] Albumin SerPl-mCnc 3.5 g/dL Normal 5 3.5 - 5 [facility] Sodium SerPl-sCnc 137.0 mmol/L Normal 5 135 - 145 [facility] Prot SerPl-mCnc 5.8 g/dL Below low normal 06/27/19 2 5 6.4 - 8.5 [facility] BUN SerPl-mCnc 51.0 mg/dL Above high normal 06/27/19 2 5 9 - 20 [facility] Potassium SerPl-sCnc 3.7 mmol/L Normal 5 3.5 - 5.1 [facility] Calcium SerPl-mCnc 9.2 mg/dL Normal 5 8.4 - 10.2 [facility] Chloride SerPl-sCnc 104.0 mmol/L Normal 06/27/19 2 5 98 - 107 [facility] ALT SerPl-cCnc 24.0 unit/L Normal 5 7 - 52 [facility] CO2 SerPl-sCnc 23.0 mmol/L Below low normal 5 24 - 32 [facility] AST SerPl-cCnc 25.0 unit/L Normal 5 5 - 40 [facility] Glucose SerPl-mCnc 228.0 mg/dL Above high normal 5 70 - 199 [facility] Bilirub SerPl-mCnc 0.8 mg/dL Normal 5 0.3 - 1 [facility] BUN/Creat SerPl 28.3 Above high normal 02 5 12 - 20 [facility] eGFRcr SerPlBld CKD-EPI 2020 44.0 mL/min/1.73m2 Below low normal 5 - [facility] ALP SerPl-cCnc 204.0 unit/L Above high normal 06/27/19 2 5 34 - 104 [facility] Anion Gap SerPl-sCnc 10.0 Normal 5 5 - 14 [facility] Creat SerPl-mCnc 1.8 mg/dL Above high normal 5 0.7 - 1.3 [facility] Anion Gap SerPl-sCnc 10.0 Normal 5 5 - 14 [facility] Calcium SerPl-mCnc 9.2 mg/dL Normal 5 8.4 - 10.2 [facility] BUN SerPl-mCnc 51.0 mg/dL Above high normal 06/27/19 2 5 9 - 20 [facility] Creat SerPl-mCnc 1.8 mg/dL Above high normal 5 0.7 - 1.3 [facility] Sodium SerPl-sCnc 137.0 mmol/L Normal 5 135 - 145 [facility] eGFRcr SerPlBld CKD-EPI 2020 44.0 mL/min/1.73m2 Below low normal 5 - [facility] BUN/Creat SerPl 28.3 Above high normal 02 5 12 - 20 [facility] Chloride SerPl-sCnc 104.0 mmol/L Normal 06/27/19 2 5 98 - 107 [facility] Glucose SerPl-mCnc 228.0 mg/dL Above high normal 5 70 - 199 [facility] CO2 SerPl-sCnc 23.0 mmol/L Below low normal 5 24 - 32 [facility] Potassium SerPl-sCnc 3.7 mmol/L Normal 5 3.5 - 5.1 [facility] Magnesium SerPl-mCnc 1.5 mg/dL Below low normal 5 1.7 - 2.8 [facility] Ferritin SerPl-mCnc 170.0 ng/mL Normal 06/27/19 2 5 20 - 250 [facility] TIBC SerPl-mCnc 350.0 mcg/dL Normal 5 250 - 450 [facility] Iron SerPl-mCnc 67.0 mcg/dL Normal 5 49 - 181 [facility] UIBC SerPl-mCnc 283.0 mcg/dL Normal 5 155 - 355 [facility] Iron Satn MFr SerPl 19.0 % Below low normal 5 20 - 45 [facility] ABO Group Bld A Normal 5 [facility] Bld gp Ab Scn SerPl Ql Negative Normal 5 [facility] Rh Bld Positive Normal 5 [facility] RDW RBC Auto-Rto 17.5 % Normal 5 12.1 - 17.7 [facility] MCV RBC Auto 91.6 FL Normal 5 78 - 100 [facility] Neutrophils # Bld Auto 2.88 K/mcL Normal 5 1.8 - 7.8 [facility] Hct VFr Bld Auto 19.6 % Below low normal 02 5 40 - 54 [facility] RBC # Bld Auto 2.14 M/mcL Below low normal 5 4.7 - 6 [facility] Basophils/leuk NFr Bld Auto 0.7 % Normal 5 0 - 2 [facility] Hgb Bld-mCnc 6.1 g/dL Critically low 5 13.5 - 18 [facility] Monocytes/leuk NFr Bld Auto 8.1 % Normal 5 2 - 12 [facility] Monocytes # Bld Auto 0.33 K/mcL Normal 5 0 - 0.8 [facility] Basophils # Bld Auto 0.03 K/mcL Normal 5 0 - 0.2 [facility] MCHC RBC Auto-mCnc 31.1 g/dL Below low normal 06/26 5 32 - 36 [facility] PMV Bld Auto 9.6 FL Normal 5 7.4 - 11.4 [facility] Platelet # Bld Auto 128.0 K/mcL Below low normal 5 150 - 450 [facility] Eosinophil/leuk NFr Bld Auto 4.9 % Normal 5 0 - 6 [facility] Eosinophil # Bld Auto 0.2 K/mcL Normal 5 0 - 0.5 [facility] Lymphocytes # Bld Auto 0.62 K/mcL Below low normal 5 1 - 3.2 [facility] Lymphocytes/leuk NFr Bld Auto 15.2 % Below low normal 5 20 - 48 [facility] Neutrophils/leuk NFr Bld Auto 70.9 % Normal 5 44 - 74 [facility] MCH RBC Qn Auto 28.5 pcg Normal 5 25 - 33 [facility] WBC # Bld Auto 4.1 K/mcL Normal 5 4 - 10.5 [facility] ABO Group Bld A Normal 5 [facility] Rh Bld Positive Normal 5 [facility] Bld gp Ab Scn SerPl Ql Negative Normal 5 [facility] Ferritin SerPl-mCnc 114.0 ng/mL Normal 06/09/19 2 5 20 - 250 [facility] UIBC SerPl-mCnc 295.0 mcg/dL Normal 5 155 - 355 [facility] TIBC SerPl-mCnc 335.0 mcg/dL Normal 5 250 - 450 [facility] Iron Satn MFr SerPl 12.0 % Below low normal 05/23 5 20 - 45 [facility] Iron SerPl-mCnc 40.0 mcg/dL Below low normal 06/09/19 2 5 49 - 181 [facility] Basophils/leuk NFr Bld Auto 0.6 % Normal 5 0 - 2 [facility] Platelet # Bld Auto 201.0 K/mcL Normal 06/09/19 2 5 150 - 450 [facility] WBC # Bld Auto 6.2 K/mcL Normal 5 4 - 10.5 [facility] RBC # Bld Auto 3.01 M/mcL Below low normal 5 4.7 - 6 [facility] Monocytes # Bld Auto 0.6 K/mcL Normal 5 0 - 0.8 [facility] Monocytes/leuk NFr Bld Auto 9.7 % Normal 5 2 - 12 [facility] Eosinophil/leuk NFr Bld Auto 4.5 % Normal 5 0 - 6 [facility] MCHC RBC Auto-mCnc 32.1 g/dL Normal 5 32 - 36 [facility] RDW RBC Auto-Rto 13.5 % Normal 5 12.1 - 17.7 [facility] MCH RBC Qn Auto 28.2 pcg Normal 5 25 - 33 [facility] Hct VFr Bld Auto 26.5 % Below low normal 02 5 40 - 54 [facility] Basophils # Bld Auto 0.04 K/mcL Normal 5 0 - 0.2 [facility] Hgb Bld-mCnc 8.5 g/dL Below low normal 5 13.5 - 18 [facility] Lymphocytes # Bld Auto 0.73 K/mcL Below low normal 5 1 - 3.2 [facility] PMV Bld Auto 9.9 FL Normal 5 7.4 - 11.4 [facility] Lymphocytes/leuk NFr Bld Auto 11.8 % Below low normal 5 20 - 48 [facility] Eosinophil # Bld Auto 0.28 K/mcL Normal 5 0 - 0.5 [facility] Neutrophils/leuk NFr Bld Auto 73.2 % Normal 5 44 - 74 [facility] MCV RBC Auto 88.0 FL Normal 5 78 - 100 [facility] Neutrophils # Bld Auto 4.54 K/mcL Normal 5 1.8 - 7.8 [facility] Folate SerPl-mCnc 20.4 ng/ml Normal 5 - [facility] Vit B12 SerPl-mCnc 2675.0 pcg/mL Above high normal 5 180 - 914 [facility] Ferritin SerPl-mCnc 132.0 ng/mL Normal 05/27/19 2 5 20 - 250 [facility] UIBC SerPl-mCnc 362.0 mcg/dL Above high normal 02 5 155 - 355 [facility] TIBC SerPl-mCnc 404.0 mcg/dL Normal 5 250 - 450 [facility] Iron Satn MFr SerPl 10.0 % Below low normal 5 20 - 45 [facility] Iron SerPl-mCnc 42.0 mcg/dL Below low normal 05/26/19 2 5 49 - 181 [facility] MCV RBC Auto 91.4 FL Normal 5 78 - 100 [facility] Monocytes # Bld Auto 0.94 K/mcL Above high normal 5 0 - 0.8 [facility] Basophils/leuk NFr Bld Auto 0.8 % Normal 5 0 - 2 [facility] RDW RBC Auto-Rto 14.3 % Normal 5 12.1 - 17.7 [facility] MCH RBC Qn Auto 29.3 pcg Normal 5 25 - 33 [facility] Platelet # Bld Auto 127.0 K/mcL Below low normal 5 150 - 450 [facility] Hct VFr Bld Auto 26.5 % Below low normal 02 5 40 - 54 [facility] PMV Bld Auto 10.8 FL Normal 5 7.4 - 11.4 [facility] WBC # Bld Auto 6.3 K/mcL Normal 5 4 - 10.5 [facility] Basophils # Bld Auto 0.05 K/mcL Normal 5 0 - 0.2 [facility] Eosinophil/leuk NFr Bld Auto 4.3 % Normal 5 0 - 6 [facility] Lymphocytes/leuk NFr Bld Auto 15.3 % Below low normal 5 20 - 48 [facility] Hgb Bld-mCnc 8.5 g/dL Below low normal 5 13.5 - 18 [facility] MCHC RBC Auto-mCnc 32.1 g/dL Normal 5 32 - 36 [facility] Neutrophils/leuk NFr Bld Auto 64.5 % Normal 5 44 - 74 [facility] Lymphocytes # Bld Auto 0.97 K/mcL Below low normal 5 1 - 3.2 [facility] Neutrophils # Bld Auto 4.08 K/mcL Normal 5 1.8 - 7.8 [facility] RBC # Bld Auto 2.9 M/mcL Below low normal 5 4.7 - 6 [facility] Monocytes/leuk NFr Bld Auto 14.9 % Above high normal 5 2 - 12 [facility] Eosinophil # Bld Auto 0.27 K/mcL Normal 5 0 - 0.5 [facility] ABO Group Bld A Normal 5 [facility] Rh Bld Positive Normal 5 [facility] Bld gp Ab Scn SerPl Ql Negative Normal 5 [facility] Glucose Bld-mCnc 147.0 mg/dL Normal 5 70 - 199 [facility] Glucose Bld-mCnc 125.0 mg/dL Normal 5 70 - 199 [facility] Anion Gap SerPl-sCnc 10.0 Normal 5 5 - 14 [facility] Creat SerPl-mCnc 1.8 mg/dL Above high normal 5 0.7 - 1.3 [facility] BUN SerPl-mCnc 69.0 mg/dL Above high normal 05/22/19 2 5 9 - 20 [facility] CO2 SerPl-sCnc 24.0 mmol/L Normal 5 24 - 32 [facility] Glucose SerPl-mCnc 147.0 mg/dL Above high normal 04/24 5 70 - 99 [facility] eGFRcr SerPlBld CKD-EPI 2020 44.0 mL/min/1.73m2 Below low normal 5 - [facility] Potassium SerPl-sCnc 5.3 mmol/L Above high normal 5 3.5 - 5.1 [facility] Calcium SerPl-mCnc 8.9 mg/dL Normal 5 8.4 - 10.2 [facility] Chloride SerPl-sCnc 101.0 mmol/L Normal 05/22/19 2 5 98 - 107 [facility] Sodium SerPl-sCnc 135.0 mmol/L Normal 5 135 - 145 [facility] BUN/Creat SerPl 38.3 Above high normal 02 5 12 - 20 [facility] Magnesium SerPl-mCnc 1.2 mg/dL Below low normal 5 1.7 - 2.8 [facility] RBC # Bld Auto 2.55 M/mcL Below low normal 5 4.7 - 6 [facility] Basophils # Bld Auto 0.0 K/mcL Normal 5 0 - 0.2 [facility] Lymphocytes # Bld Auto 0.7 K/mcL Below low normal 5 1 - 3.2 [facility] Hct VFr Bld Auto 23.2 % Below low normal 01/31/2 02 5 40 - 54 [facility] Monocytes/leuk NFr Bld Auto 14.5 % Above high normal 5 2 - 12 [facility] Neutrophils/leuk NFr Bld Auto 60.1 % Normal 5 44 - 74 [facility] Hgb Bld-mCnc 7.7 g/dL Below low normal 5 13.5 - 18 [facility] Eosinophil/leuk NFr Bld Auto 5.0 % Normal 5 0 - 6 [facility] MCHC RBC Auto-mCnc 32.9 g/dL Normal 5 32 - 36 [facility] Basophils/leuk NFr Bld Auto 1.1 % Normal 5 0 - 2 [facility] PMV Bld Auto 9.1 FL Normal 5 7.4 - 11.4 [facility] WBC # Bld Auto 3.4 K/mcL Below low normal 5 4 - 10.5 [facility] Monocytes # Bld Auto 0.5 K/mcL Normal 5 0 - 0.8 [facility] Eosinophil # Bld Auto 0.2 K/mcL Normal 5 0 - 0.5 [facility] Lymphocytes/leuk NFr Bld Auto 19.3 % Below low normal 5 20 - 48 [facility] RDW RBC Auto-Rto 15.5 % Normal 5 12.1 - 17.7 [facility] MCH RBC Qn Auto 30.0 pcg Normal 5 25 - 33 [facility] MCV RBC Auto 91.1 FL Normal 5 78 - 100 [facility] Platelet # Bld Auto 107.0 K/mcL Below low normal 04/24 5 150 - 450 [facility] Neutrophils # Bld Auto 2.0 K/mcL Normal 5 1.8 - 7.8 [facility] Glucose Bld-mCnc 217.0 mg/dL Above high normal 5 70 - 199 [facility] Glucose Bld-mCnc 189.0 mg/dL Normal 5 70 - 199 [facility] Glucose Bld-mCnc 123.0 mg/dL Normal 5 70 - 199 [facility] Glucose Bld-mCnc 172.0 mg/dL Normal 5 70 - 199 [facility] Glucose Bld-mCnc 176.0 mg/dL Normal 5 70 - 199 [facility] Sodium SerPl-sCnc 133.0 mmol/L Below low normal 5 135 - 145 [facility] CO2 SerPl-sCnc 25.0 mmol/L Normal 5 24 - 32 [facility] Calcium SerPl-mCnc 9.1 mg/dL Normal 5 8.4 - 10.2 [facility] Chloride SerPl-sCnc 101.0 mmol/L Normal 05/21/19 2 5 98 - 107 [facility] BUN/Creat SerPl 38.0 Above high normal 02 5 12 - 20 [facility] eGFRcr SerPlBld CKD-EPI 2020 54.0 mL/min/1.73m2 Below low normal 5 - [facility] Creat SerPl-mCnc 1.5 mg/dL Above high normal 5 0.7 - 1.3 [facility] BUN SerPl-mCnc 57.0 mg/dL Above high normal 05/21/19 2 5 9 - 20 [facility] Glucose SerPl-mCnc 212.0 mg/dL Above high normal 04/24 5 70 - 99 [facility] Potassium SerPl-sCnc 5.3 mmol/L Above high normal 5 3.5 - 5.1 [facility] Anion Gap SerPl-sCnc 7.0 Normal 5 5 - 14 [facility] Neutrophils/leuk NFr Bld Auto 62.7 % Normal 5 44 - 74 [facility] Basophils/leuk NFr Bld Auto 0.4 % Normal 5 0 - 2 [facility] MCH RBC Qn Auto 30.2 pcg Normal 5 25 - 33 [facility] PMV Bld Auto 9.1 FL Normal 5 7.4 - 11.4 [facility] MCHC RBC Auto-mCnc 33.1 g/dL Normal 5 32 - 36 [facility] Eosinophil/leuk NFr Bld Auto 2.8 % Normal 5 0 - 6 [facility] Hct VFr Bld Auto 23.1 % Below low normal 02 5 40 - 54 [facility] Monocytes # Bld Auto 0.5 K/mcL Normal 5 0 - 0.8 [facility] WBC # Bld Auto 3.4 K/mcL Below low normal 5 4 - 10.5 [facility] Lymphocytes/leuk NFr Bld Auto 18.6 % Below low normal 5 20 - 48 [facility] Neutrophils # Bld Auto 2.1 K/mcL Normal 5 1.8 - 7.8 [facility] Platelet # Bld Auto 111.0 K/mcL Below low normal 04/24 5 150 - 450 [facility] MCV RBC Auto 91.3 FL Normal 5 78 - 100 [facility] Monocytes/leuk NFr Bld Auto 15.5 % Above high normal 5 2 - 12 [facility] Eosinophil # Bld Auto 0.1 K/mcL Normal 5 0 - 0.5 [facility] Lymphocytes # Bld Auto 0.6 K/mcL Below low normal 5 1 - 3.2 [facility] Hgb Bld-mCnc 7.6 g/dL Below low normal 5 13.5 - 18 [facility] RBC # Bld Auto 2.53 M/mcL Below low normal 5 4.7 - 6 [facility] Basophils # Bld Auto 0.0 K/mcL Normal 5 0 - 0.2 [facility] RDW RBC Auto-Rto 16.0 % Normal 5 12.1 - 17.7 [facility] Glucose Bld-mCnc 301.0 mg/dL Above high normal 5 70 - 199 [facility] Glucose Bld-mCnc 173.0 mg/dL Normal 5 70 - 199 [facility] Potassium SerPl-sCnc 5.4 mmol/L Above high normal 5 3.5 - 5.1 [facility] Glucose Bld-mCnc 226.0 mg/dL Above high normal 5 70 - 199 [facility] Glucose Bld-mCnc 274.0 mg/dL Above high normal 5 70 - 199 [facility] Glucose Bld-mCnc 132.0 mg/dL Normal 5 70 - 199 [facility] Glucose Bld-mCnc 147.0 mg/dL Normal 5 70 - 199 [facility] eGFRcr SerPlBld CKD-EPI 2020 54.0 mL/min/1.73m2 Below low normal 5 - [facility] Chloride SerPl-sCnc 105.0 mmol/L Normal 05/20/19 2 5 98 - 107 [facility] CO2 SerPl-sCnc 23.0 mmol/L Below low normal 5 24 - 32 [facility] BUN/Creat SerPl 38.0 Above high normal 02 5 12 - 20 [facility] Creat SerPl-mCnc 1.5 mg/dL Above high normal 5 0.7 - 1.3 [facility] Potassium SerPl-sCnc 5.7 mmol/L Above high normal 5 3.5 - 5.1 [facility] Sodium SerPl-sCnc 134.0 mmol/L Below low normal 5 135 - 145 [facility] Calcium SerPl-mCnc 9.1 mg/dL Normal 5 8.4 - 10.2 [facility] Anion Gap SerPl-sCnc 6.0 Normal 5 5 - 14 [facility] BUN SerPl-mCnc 57.0 mg/dL Above high normal 05/20/19 2 5 9 - 20 [facility] Glucose SerPl-mCnc 162.0 mg/dL Normal 5 70 - 199 [facility] MCV RBC Auto 91.2 FL Normal 5 78 - 100 [facility] MCH RBC Qn Auto 30.3 pcg Normal 5 25 - 33 [facility] Neutrophils # Bld Auto 2.1 K/mcL Normal 5 1.8 - 7.8 [facility] MCHC RBC Auto-mCnc 33.2 g/dL Normal 5 32 - 36 [facility] Basophils # Bld Auto 0.0 K/mcL Normal 5 0 - 0.2 [facility] Monocytes/leuk NFr Bld Auto 14.9 % Above high normal 5 2 - 12 [facility] Lymphocytes/leuk NFr Bld Auto 14.0 % Below low normal 5 20 - 48 [facility] Eosinophil # Bld Auto 0.0 K/mcL Normal 5 0 - 0.5 [facility] WBC # Bld Auto 3.0 K/mcL Below low normal 5 4 - 10.5 [facility] Platelet # Bld Auto 95.0 K/mcL Below low normal 04/23 5 150 - 450 [facility] Hgb Bld-mCnc 7.4 g/dL Below low normal 5 13.5 - 18 [facility] PMV Bld Auto 8.7 FL Normal 5 7.4 - 11.4 [facility] Basophils/leuk NFr Bld Auto 0.2 % Normal 5 0 - 2 [facility] Neutrophils/leuk NFr Bld Auto 70.1 % Normal 5 44 - 74 [facility] RDW RBC Auto-Rto 15.6 % Normal 5 12.1 - 17.7 [facility] RBC # Bld Auto 2.44 M/mcL Below low normal 5 4.7 - 6 [facility] Lymphocytes # Bld Auto 0.4 K/mcL Below low normal 5 1 - 3.2 [facility] Monocytes # Bld Auto 0.4 K/mcL Normal 5 0 - 0.8 [facility] Hct VFr Bld Auto 22.3 % Below low normal 02 5 40 - 54 [facility] Eosinophil/leuk NFr Bld Auto 0.8 % Normal 5 0 - 6 [facility] Glucose Bld-mCnc 152.0 mg/dL Normal 5 70 - 199 [facility] Glucose Bld-mCnc 174.0 mg/dL Normal 5 70 - 199 [facility] Glucose Bld-mCnc 140.0 mg/dL Normal 5 70 - 199 [facility] Glucose Bld-mCnc 230.0 mg/dL Above high normal 5 70 - 199 [facility] Glucose Bld-mCnc 196.0 mg/dL Normal 5 70 - 199 [facility] Anion Gap SerPl-sCnc 6.0 Normal 5 5 - 14 [facility] CO2 SerPl-sCnc 20.0 mmol/L Below low normal 5 24 - 32 [facility] Chloride SerPl-sCnc 104.0 mmol/L Normal 05/20/19 2 5 98 - 107 [facility] Creat SerPl-mCnc 1.8 mg/dL Above high normal 5 0.7 - 1.3 [facility] Potassium SerPl-sCnc 5.8 mmol/L Above high normal 5 3.5 - 5.1 [facility] Calcium SerPl-mCnc 8.8 mg/dL Normal 5 8.4 - 10.2 [facility] Glucose SerPl-mCnc 266.0 mg/dL Above high normal 04/23 5 70 - 199 [facility] BUN/Creat SerPl 29.4 Above high normal 02 5 12 - 20 [facility] BUN SerPl-mCnc 53.0 mg/dL Above high normal 05/20/19 2 5 9 - 20 [facility] Sodium SerPl-sCnc 130.0 mmol/L Below low normal 5 135 - 145 [facility] eGFRcr SerPlBld CKD-EPI 2020 44.0 mL/min/1.73m2 Below low normal 5 - [facility] Glucose Bld-mCnc 253.0 mg/dL Above high normal 5 70 - 199 [facility] Glucose Bld-mCnc 224.0 mg/dL Above high normal 5 70 - 199 [facility] Glucose Bld-mCnc 194.0 mg/dL Normal 5 70 - 199 [facility] Sodium SerPl-sCnc 134.0 mmol/L Below low normal 5 135 - 145 [facility] Anion Gap SerPl-sCnc 9.0 Normal 5 5 - 14 [facility] CO2 SerPl-sCnc 21.0 mmol/L Below low normal 5 24 - 32 [facility] Glucose SerPl-mCnc 243.0 mg/dL Above high normal 04/23 5 70 - 199 [facility] Chloride SerPl-sCnc 104.0 mmol/L Normal 05/19/19 2 5 98 - 107 [facility] BUN/Creat SerPl 30.0 Above high normal 02 5 12 - 20 [facility] BUN SerPl-mCnc 60.0 mg/dL Above high normal 05/19/19 2 5 9 - 20 [facility] Potassium SerPl-sCnc 5.5 mmol/L Above high normal 5 3.5 - 5.1 [facility] eGFRcr SerPlBld CKD-EPI 2021 38.0 mL/min/1.73m2 Below low normal 5 - [facility] Calcium SerPl-mCnc 9.0 mg/dL Normal 5 8.4 - 10.2 [facility] Creat SerPl-mCnc 2.0 mg/dL Above high normal 5 0.7 - 1.3 [facility] Glucose Bld-mCnc 300.0 mg/dL Above high normal 5 70 - 199 [facility] Glucose Bld-mCnc 192.0 mg/dL Normal 5 70 - 199 [facility] Creat SerPl-mCnc 1.6 mg/dL Above high normal 5 0.7 - 1.3 [facility] Sodium SerPl-sCnc 133.0 mmol/L Below low normal 5 135 - 145 [facility] BUN SerPl-mCnc 62.0 mg/dL Above high normal 05/19/19 2 5 9 - 20 [facility] Chloride SerPl-sCnc 103.0 mmol/L Normal 05/19/19 2 5 98 - 107 [facility] Anion Gap SerPl-sCnc 7.0 Normal 5 5 - 14 [facility] eGFRcr SerPlBld CKD-EPI 2020 50.0 mL/min/1.73m2 Below low normal 5 - [facility] Calcium SerPl-mCnc 9.1 mg/dL Normal 5 8.4 - 10.2 [facility] Glucose SerPl-mCnc 162.0 mg/dL Normal 5 70 - 199 [facility] Potassium SerPl-sCnc 5.7 mmol/L Above high normal 5 3.5 - 5.1 [facility] BUN/Creat SerPl 38.8 Above high normal 02 5 12 - 20 [facility] CO2 SerPl-sCnc 23.0 mmol/L Below low normal 5 24 - 32 [facility] Hct VFr Bld Auto 24.8 % Below low normal 02 5 40 - 54 [facility] Hgb Bld-mCnc 8.4 g/dL Below low normal 5 13.5 - 18 [facility] MCHC RBC Auto-mCnc 33.9 g/dL Normal 5 32 - 36 [facility] MCH RBC Qn Auto 30.5 pcg Normal 5 25 - 33 [facility] Basophils/leuk NFr Bld Auto 0.1 % Normal 5 0 - 2 [facility] Monocytes/leuk NFr Bld Auto 9.5 % Normal 5 2 - 12 [facility] Neutrophils # Bld Auto 3.6 K/mcL Normal 5 1.8 - 7.8 [facility] PMV Bld Auto 9.3 FL Normal 5 7.4 - 11.4 [facility] Platelet # Bld Auto 102.0 K/mcL Below low normal 04/23 5 150 - 450 [facility] WBC # Bld Auto 4.3 K/mcL Normal 5 4 - 10.5 [facility] RBC # Bld Auto 2.76 M/mcL Below low normal 5 4.7 - 6 [facility] MCV RBC Auto 89.8 FL Normal 5 78 - 100 [facility] RDW RBC Auto-Rto 15.9 % Normal 5 12.1 - 17.7 [facility] Eosinophil/leuk NFr Bld Auto 0.0 % Normal 5 0 - 6 [facility] Neutrophils/leuk NFr Bld Auto 84.2 % Above high normal 5 44 - 74 [facility] Monocytes # Bld Auto 0.4 K/mcL Normal 5 0 - 0.8 [facility] Eosinophil # Bld Auto 0.0 K/mcL Normal 5 0 - 0.5 [facility] Lymphocytes/leuk NFr Bld Auto 6.2 % Below low normal 5 20 - 48 [facility] Basophils # Bld Auto 0.0 K/mcL Normal 5 0 - 0.2 [facility] Lymphocytes # Bld Auto 0.3 K/mcL Below low normal 5 1 - 3.2 [facility] aPTT PPP 35.6 sec Normal 5 25 - 37 [facility] Glucose Bld-mCnc 137.0 mg/dL Normal 5 70 - 199 [facility] aPTT PPP 35.8 sec Normal 5 25 - 37 [facility] Hgb Bld-mCnc 8.2 g/dL Below low normal 5 13.5 - 18 [facility] Hct VFr Bld Auto 24.4 % Below low normal 02 5 40 - 54 [facility] Hgb Bld-mCnc 9.2 g/dL Below low normal 5 13.5 - 18 [facility] Hct VFr Bld Auto 27.2 % Below low normal 02 5 40 - 54 [facility] Glucose Bld-mCnc 165.0 mg/dL Normal 5 70 - 199 [facility] Glucose Bld-mCnc 110.0 mg/dL Normal 5 70 - 199 [facility] Glucose Bld-mCnc 106.0 mg/dL Normal 5 70 - 199 [facility] Phosphate SerPl-mCnc 4.9 mg/dL Above high normal 5 2.5 - 4.5 [facility] Magnesium SerPl-mCnc 1.8 mg/dL Normal 5 1.7 - 2.8 [facility] Anion Gap SerPl-sCnc 10.0 Normal 5 5 - 14 [facility] Glucose SerPl-mCnc 109.0 mg/dL Normal 5 70 - 199 [facility] Potassium SerPl-sCnc 4.0 mmol/L Normal 5 3.5 - 5.1 [facility] Chloride SerPl-sCnc 105.0 mmol/L Normal 05/18/19 2 5 98 - 107 [facility] Creat SerPl-mCnc 2.1 mg/dL Above high normal 5 0.7 - 1.3 [facility] Calcium SerPl-mCnc 8.6 mg/dL Normal 5 8.4 - 10.2 [facility] BUN SerPl-mCnc 73.0 mg/dL Above high normal 05/18/19 2 5 9 - 20 [facility] Sodium SerPl-sCnc 137.0 mmol/L Normal 5 135 - 145 [facility] eGFRcr SerPlBld CKD-EPI 2020 36.0 mL/min/1.73m2 Below low normal 5 - [facility] CO2 SerPl-sCnc 22.0 mmol/L Below low normal 5 24 - 32 [facility] BUN/Creat SerPl 34.8 Above high normal 02 5 12 - 20 [facility] PT Bld 18.1 sec Above high normal 5 10.5 - 13.3 [facility] INR PPP 1.5 Above high normal 5 0.8 - 1.1 [facility] Eosinophil # Bld Auto 0.1 K/mcL Normal 5 0 - 0.5 [facility] Hgb Bld-mCnc 7.9 g/dL Below low normal 5 13.5 - 18 [facility] Platelet # Bld Auto 83.0 K/mcL Below low normal 04/23 5 150 - 450 [facility] Lymphocytes # Bld Auto 0.6 K/mcL Below low normal 5 1 - 3.2 [facility] MCHC RBC Auto-mCnc 33.8 g/dL Normal 5 32 - 36 [facility] PMV Bld Auto 9.0 FL Normal 5 7.4 - 11.4 [facility] WBC # Bld Auto 2.6 K/mcL Below low normal 5 4 - 10.5 [facility] Neutrophils # Bld Auto 1.3 K/mcL Below low normal 5 1.8 - 7.8 [facility] Eosinophil/leuk NFr Bld Auto 3.3 % Normal 5 0 - 6 [facility] RBC # Bld Auto 2.59 M/mcL Below low normal 5 4.7 - 6 [facility] RDW RBC Auto-Rto 16.0 % Normal 5 12.1 - 17.7 [facility] Basophils # Bld Auto 0.0 K/mcL Normal 5 0 - 0.2 [facility] Basophils/leuk NFr Bld Auto 1.3 % Normal 5 0 - 2 [facility] Neutrophils/leuk NFr Bld Auto 52.0 % Normal 5 44 - 74 [facility] Monocytes # Bld Auto 0.5 K/mcL Normal 5 0 - 0.8 [facility] MCV RBC Auto 90.0 FL Normal 5 78 - 100 [facility] MCH RBC Qn Auto 30.4 pcg Normal 5 25 - 33 [facility] Monocytes/leuk NFr Bld Auto 18.9 % Above high normal 5 2 - 12 [facility] Lymphocytes/leuk NFr Bld Auto 24.5 % Normal 5 20 - 48 [facility] Hct VFr Bld Auto 23.4 % Below low normal 02 5 40 - 54 [facility] Glucose Bld-mCnc 101.0 mg/dL Normal 5 70 - 199 [facility] BZE Ur Ql Scn Negative Normal 5 - [facility] Cannabinoids Ur Ql Scn Negative Normal 5 - [facility] PCP Ur Ql Scn Negative Normal 5 - [facility] oxyCODONE Ur Ql Scn Negative Normal 05/18/19 2 5 - [facility] fentaNYL Ur Ql Positive Abnormal 5 - [facility] Benzodiaz Ur Ql Scn Negative Normal 05/18/19 2 5 - [facility] Amphet Ur Ql Scn Negative Normal 5 - [facility] Opiates Ur Ql Scn Negative Normal 5 - [facility] Barbiturates Ur Ql Scn Negative Normal 5 - [facility] Ketones Ur-mCnc Negative Normal 5 - [facility] pH Ur 6.0 pH Normal 5 5 - 8 [facility] RBC #/area UrnS HPF <1.0 /HPF Normal 05/18/19 2 5 0 - 3 [facility] Hgb Ur Ql Small Abnormal 5 - [facility] Nitrite Ur Ql Negative Normal 5 - [facility] Leukocyte esterase Ur Ql Strip Negative Normal 5 - [facility] WBC #/area UrnS HPF 1.0 /HPF Normal 05/18/19 2 5 0 - 5 [facility] Clarity Ur Clear Normal 5 - [facility] Glucose Ur Ql Negative Normal 5 - [facility] Color Ur Yellow Normal 5 - [facility] Prot Ur Strip-mCnc Negative Normal 5 - [facility] Sp Gr Ur 1.009 Normal 5 1.005 - 1.03 [facility] Mucous Threads #/area UrnS HPF Present Abnormal 5 - [facility] Squamous Epithelial, Urine 0.0 /HPF Normal 5 0 - 5 [facility] Ethanol SerPl-mCnc <10.0 mg/dL Normal 5 0 - 10 [facility] PMV Bld Auto 9.6 FL Normal 5 7.4 - 11.4 [facility] RDW RBC Auto-Rto 15.8 % Normal 5 12.1 - 17.7 [facility] MCHC RBC Auto-mCnc 33.5 g/dL Normal 5 32 - 36 [facility] WBC # Bld Auto 3.1 K/mcL Below low normal 5 4 - 10.5 [facility] Platelet # Bld Auto 79.0 K/mcL Below low normal 04/23 5 150 - 450 [facility] Hct VFr Bld Auto 23.6 % Below low normal 02 5 40 - 54 [facility] RBC # Bld Auto 2.59 M/mcL Below low normal 5 4.7 - 6 [facility] MCH RBC Qn Auto 30.6 pcg Normal 5 25 - 33 [facility] Hgb Bld-mCnc 7.9 g/dL Below low normal 5 13.5 - 18 [facility] MCV RBC Auto 91.2 FL Normal 5 78 - 100 [facility] eGFR 25.0 mL/min/1.73m2 Normal 5 [facility] Creat Bld-mCnc 2.7 mg/dL Above high normal 05/17/19 2 5 0.7 - 1.3 [facility] SaO2 % BldV 67.0 % Normal 5 - [facility] pH BldV 7.38 Normal 5 7.35 - 7.45 [facility] Base excess BldV Calc-sCnc -9.0 mmol/L Normal 5 - [facility] pCO2 BldV 27.8 mmHg Normal 5 - [facility] HCO3 BldV-sCnc 16.4 mmol/L Normal 5 - [facility] pO2 BldV 35.0 mmHg Normal 5 - [facility] Potassium BldV-sCnc 4.6 mmol/L Normal 05/17/19 2 5 3.5 - 5.1 [facility] Sodium BldV-sCnc 134.0 mmol/L Below low normal 02 5 135 - 145 [facility] Hct VFr BldV <15.0 % Below low normal 5 40 - 54 [facility] pO2 BldV 203.0 mmHg Normal 5 [facility] Base excess BldV Calc-sCnc -6.6 mmol/L Normal 5 [facility] HCO3 BldV-sCnc 19.8 mmol/L Normal 5 [facility] pH BldV 7.45 pH Normal 5 7.35 - 7.45 [facility] SaO2 % BldV 100.0 % Normal 5 [facility] pCO2 BldV 22.0 mmHg Normal 5 [facility] Rh Bld Positive Normal 5 [facility] Bld gp Ab Scn SerPl Ql Negative Normal 5 [facility] ABO Group Bld A Normal 5 [facility] Procalcitonin SerPl-mCnc 1.87 ng/mL Above high normal 5 - [facility] Troponin I SerPl HS-mCnc 25.0 ng/L Above high normal 5 0 - 20 [facility] Ethanol SerPl-mCnc <10.0 mg/dL Normal 5 0 - 10 [facility] Phosphate SerPl-mCnc 4.7 mg/dL Above high normal 5 2.5 - 4.5 [facility] Magnesium SerPl-mCnc 1.7 mg/dL Normal 5 1.7 - 2.8 [facility] Prot SerPl-mCnc 4.8 g/dL Below low normal 05/17/19 2 5 6.4 - 8.5 [facility] BUN/Creat SerPl 32.3 Above high normal 02 5 12 - 20 [facility] eGFRcr SerPlBld CKD-EPI 2020 28.0 mL/min/1.73m2 Below low normal 5 - [facility] ALT SerPl-cCnc 14.0 unit/L Normal 5 7 - 52 [facility] Bilirub SerPl-mCnc 1.2 mg/dL Above high normal 04/23 5 0.3 - 1 [facility] CO2 SerPl-sCnc 18.0 mmol/L Below low normal 5 24 - 32 [facility] Potassium SerPl-sCnc 4.6 mmol/L Normal 5 3.5 - 5.1 [facility] ALP SerPl-cCnc 114.0 unit/L Above high normal 05/17/19 2 5 34 - 104 [facility] Calcium SerPl-mCnc 7.5 mg/dL Below low normal 05/17 5 8.4 - 10.2 [facility] AST SerPl-cCnc 22.0 unit/L Normal 5 5 - 40 [facility] Glucose SerPl-mCnc 103.0 mg/dL Normal 5 70 - 199 [facility] Anion Gap SerPl-sCnc 9.0 Normal 5 5 - 14 [facility] Creat SerPl-mCnc 2.6 mg/dL Above high normal 5 0.7 - 1.3 [facility] Albumin SerPl-mCnc 3.0 g/dL Below low normal 05/17 5 3.5 - 5 [facility] Sodium SerPl-sCnc 133.0 mmol/L Below low normal 5 135 - 145 [facility] BUN SerPl-mCnc 84.0 mg/dL Above high normal 05/17/19 2 5 9 - 20 [facility] Chloride SerPl-sCnc 106.0 mmol/L Normal 05/17/19 2 5 98 - 107 [facility] RBC # Bld Auto 1.39 M/mcL Below low normal 5 4.7 - 6 [facility] Eosinophil/leuk NFr Bld Auto 2.2 % Normal 5 0 - 6 [facility] MCH RBC Qn Auto 31.1 pcg Normal 5 25 - 33 [facility] Monocytes/leuk NFr Bld Auto 21.3 % Above high normal 5 2 - 12 [facility] MCV RBC Auto 93.3 FL Normal 5 78 - 100 [facility] Platelet # Bld Auto 75.0 K/mcL Below low normal 04/23 5 150 - 450 [facility] Eosinophil # Bld Auto 0.1 K/mcL Normal 5 0 - 0.5 [facility] Hgb Bld-mCnc 4.3 g/dL Critically low 5 13.5 - 18 [facility] Hct VFr Bld Auto 13.0 % Below low normal 02 5 40 - 54 [facility] Monocytes # Bld Auto 0.5 K/mcL Normal 5 0 - 0.8 [facility] MCHC RBC Auto-mCnc 33.3 g/dL Normal 5 32 - 36 [facility] Basophils/leuk NFr Bld Auto 0.6 % Normal 5 0 - 2 [facility] Lymphocytes # Bld Auto 0.4 K/mcL Below low normal 5 1 - 3.2 [facility] RDW RBC Auto-Rto 17.1 % Normal 5 12.1 - 17.7 [facility] Basophils # Bld Auto 0.0 K/mcL Normal 5 0 - 0.2 [facility] Neutrophils # Bld Auto 1.5 K/mcL Below low normal 5 1.8 - 7.8 [facility] Lymphocytes/leuk NFr Bld Auto 15.6 % Below low normal 5 20 - 48 [facility] Neutrophils/leuk NFr Bld Auto 60.3 % Normal 5 44 - 74 [facility] WBC # Bld Auto 2.5 K/mcL Below low normal 5 4 - 10.5 [facility] PMV Bld Auto 9.7 FL Normal 5 7.4 - 11.4 [facility] APAP SerPl-mCnc 12.2 mcg/mL Normal 5 10 - 30 [facility] PT Bld 22.8 sec Above high normal 5 10.5 - 13.3 [facility] INR PPP 1.9 Above high normal 5 0.8 - 1.1 [facility] aPTT PPP 35.0 sec Normal 5 25 - 37 [facility] LACTIC ACID 1.4 mmol/L Normal 5 0.5 - 2.2 [facility] Rh Bld Positive Normal 5 [facility] ABO Group Bld A Normal 5 [facility] Bld gp Ab Scn SerPl Ql Negative Normal 5 [facility] Basophils # Bld Auto 0.04 K/mcL Normal 5 0 - 0.2 [facility] Neutrophils/leuk NFr Bld Auto 68.0 % Normal 5 44 - 74 [facility] Monocytes # Bld Auto 0.38 K/mcL Normal 5 0 - 0.8 [facility] Eosinophil/leuk NFr Bld Auto 5.8 % Normal 5 0 - 6 [facility] Lymphocytes # Bld Auto 0.7 K/mcL Below low normal 5 1 - 3.2 [facility] Hgb Bld-mCnc 9.6 g/dL Below low normal 5 13.5 - 18 [facility] Basophils/leuk NFr Bld Auto 0.9 % Normal 5 0 - 2 [facility] RBC # Bld Auto 3.3 M/mcL Below low normal 5 4.7 - 6 [facility] Eosinophil # Bld Auto 0.25 K/mcL Normal 5 0 - 0.5 [facility] MCHC RBC Auto-mCnc 31.6 g/dL Below low normal 05/04 5 32 - 36 [facility] Lymphocytes/leuk NFr Bld Auto 16.3 % Below low normal 5 20 - 48 [facility] MCV RBC Auto 92.1 FL Normal 5 78 - 100 [facility] Neutrophils # Bld Auto 2.92 K/mcL Normal 5 1.8 - 7.8 [facility] Platelet # Bld Auto 79.0 K/mcL Below low normal 04/22 5 150 - 450 [facility] WBC # Bld Auto 4.3 K/mcL Normal 5 4 - 10.5 [facility] MCH RBC Qn Auto 29.1 pcg Normal 5 25 - 33 [facility] Monocytes/leuk NFr Bld Auto 8.8 % Normal 5 2 - 12 [facility] PMV Bld Auto 10.6 FL Normal 5 7.4 - 11.4 [facility] Hct VFr Bld Auto 30.4 % Below low normal 02 5 40 - 54 [facility] RDW RBC Auto-Rto 14.0 % Normal 5 12.1 - 17.7 [facility] Bld gp Ab Scn SerPl Ql Negative Normal 4 [facility] Rh Bld Positive Normal 4 [facility] ABO Group Bld A Normal 4 [facility] Eosinophil # Bld Auto 0.37 K/mcL Normal 4 0 - 0.5 [facility] MCV RBC Auto 91.7 FL Normal 4 78 - 100 [facility] Neutrophils/leuk NFr Bld Auto 59.7 % Normal 4 44 - 74 [facility] WBC # Bld Auto 5.2 K/mcL Normal 4 4 - 10.5 [facility] Platelet # Bld Auto 96.0 K/mcL Below low normal 03/24 4 150 - 450 [facility] Hgb Bld-mCnc 11.4 g/dL Below low normal 4 13.5 - 18 [facility] Lymphocytes # Bld Auto 1.04 K/mcL Normal 4 1 - 3.2 [facility] PMV Bld Auto 9.6 FL Normal 4 7.4 - 11.4 [facility] Neutrophils # Bld Auto 3.08 K/mcL Normal 4 1.8 - 7.8 [facility] Monocytes # Bld Auto 0.57 K/mcL Normal 4 0 - 0.8 [facility] RBC # Bld Auto 3.85 M/mcL Below low normal 4 4.7 - 6 [facility] Lymphocytes/leuk NFr Bld Auto 20.2 % Normal 4 20 - 48 [facility] Monocytes/leuk NFr Bld Auto 11.1 % Normal 4 2 - 12 [facility] MCH RBC Qn Auto 29.6 pcg Normal 4 25 - 33 [facility] RDW RBC Auto-Rto 13.6 % Normal 4 12.1 - 17.7 [facility] Basophils # Bld Auto 0.07 K/mcL Normal 4 0 - 0.2 [facility] Hct VFr Bld Auto 35.3 % Below low normal 02 4 40 - 54 [facility] MCHC RBC Auto-mCnc 32.3 g/dL Normal 4 32 - 36 [facility] Basophils/leuk NFr Bld Auto 1.4 % Normal 4 0 - 2 [facility] Eosinophil/leuk NFr Bld Auto 7.2 % Above high normal 4 0 - 6 [facility] ABO Group Bld A Normal 4 [facility] Bld gp Ab Scn SerPl Ql Negative Normal 4 [facility] Rh Bld Positive Normal 4 [facility] Eosinophil/leuk NFr Bld Auto 3.7 % Normal 4 0 - 6 [facility] Platelet # Bld Auto 90.0 K/mcL Below low normal 03/22 4 150 - 450 [facility] Neutrophils/leuk NFr Bld Auto 64.8 % Normal 4 44 - 74 [facility] WBC # Bld Auto 4.9 K/mcL Normal 4 4 - 10.5 [facility] RBC # Bld Auto 3.11 M/mcL Below low normal 4 4.7 - 6 [facility] PMV Bld Auto 9.7 FL Normal 4 7.4 - 11.4 [facility] Eosinophil # Bld Auto 0.18 K/mcL Normal 4 0 - 0.5 [facility] Monocytes # Bld Auto 0.39 K/mcL Normal 4 0 - 0.8 [facility] MCV RBC Auto 94.9 FL Normal 4 78 - 100 [facility] Monocytes/leuk NFr Bld Auto 8.0 % Normal 4 2 - 12 [facility] Basophils/leuk NFr Bld Auto 0.8 % Normal 4 0 - 2 [facility] MCH RBC Qn Auto 29.9 pcg Normal 4 25 - 33 [facility] Hgb Bld-mCnc 9.3 g/dL Below low normal 4 13.5 - 18 [facility] Hct VFr Bld Auto 29.5 % Below low normal 02 4 40 - 54 [facility] Lymphocytes/leuk NFr Bld Auto 22.5 % Normal 4 20 - 48 [facility] Basophils # Bld Auto 0.04 K/mcL Normal 4 0 - 0.2 [facility] Lymphocytes # Bld Auto 1.1 K/mcL Normal 4 1 - 3.2 [facility] Neutrophils # Bld Auto 3.16 K/mcL Normal 4 1.8 - 7.8 [facility] MCHC RBC Auto-mCnc 31.5 g/dL Below low normal 04/06 4 32 - 36 [facility] RDW RBC Auto-Rto 14.4 % Normal 4 12.1 - 17.7 [facility] Interpretation Ur JANIS-Imp See Below Normal 4 [facility] ABO Group Bld A Normal 4 [facility] Bld gp Ab Scn SerPl Ql Negative Normal 4 [facility] Rh Bld Positive Normal 4 [facility] Lymphocytes # Bld Auto 0.78 K/mcL Below low normal 4 1 - 3.2 [facility] Eosinophil/leuk NFr Bld Auto 5.1 % Normal 4 0 - 6 [facility] Lymphocytes/leuk NFr Bld Auto 16.6 % Below low normal 4 20 - 48 [facility] PMV Bld Auto 9.9 FL Normal 4 7.4 - 11.4 [facility] Basophils # Bld Auto 0.05 K/mcL Normal 4 0 - 0.2 [facility] Basophils/leuk NFr Bld Auto 1.1 % Normal 4 0 - 2 [facility] Monocytes/leuk NFr Bld Auto 10.4 % Normal 4 2 - 12 [facility] WBC # Bld Auto 4.7 K/mcL Normal 4 4 - 10.5 [facility] Platelet # Bld Auto 87.0 K/mcL Below low normal 4 150 - 450 [facility] Neutrophils/leuk NFr Bld Auto 66.6 % Normal 4 44 - 74 [facility] Hct VFr Bld Auto 30.6 % Below low normal 02 4 40 - 54 [facility] Hgb Bld-mCnc 9.6 g/dL Below low normal 4 13.5 - 18 [facility] MCH RBC Qn Auto 29.8 pcg Normal 4 25 - 33 [facility] MCHC RBC Auto-mCnc 31.4 g/dL Below low normal 03/23 4 32 - 36 [facility] RBC # Bld Auto 3.22 M/mcL Below low normal 4 4.7 - 6 [facility] RDW RBC Auto-Rto 14.7 % Normal 4 12.1 - 17.7 [facility] Eosinophil # Bld Auto 0.24 K/mcL Normal 4 0 - 0.5 [facility] MCV RBC Auto 95.0 FL Normal 4 78 - 100 [facility] Monocytes # Bld Auto 0.49 K/mcL Normal 4 0 - 0.8 [facility] Neutrophils # Bld Auto 3.14 K/mcL Normal 4 1.8 - 7.8 [facility] Interpretation SerPl JANIS-Imp See Below Normal 4 [facility] M Protein SerPl Elph-mCnc 6.0 g/dL Below low normal 4 6.4 - 8.2 [facility] B-Globulin MFr SerPl Elph 12.7 % Normal 4 8.5 - 13.7 [facility] Gamma glob SerPl Elph-mCnc 1.0 g/dL Normal 4 0.6 - 1.4 [facility] Alpha1 Glob MFr SerPl Elph 5.0 % Normal 4 3.3 - 5.8 [facility] Alpha2 Glob SerPl Elph-mCnc 0.5 g/dL Normal 4 0.5 - 0.9 [facility] Path Interp Bld-Imp See Below Normal 03/12/20 2 4 [facility] Alpha1 Glob SerPl Elph-mCnc 0.3 g/dL Normal 4 0.2 - 0.4 [facility] Albumin MFr SerPl Elph 58.1 % Normal 4 52.9 - 66.9 [facility] Gamma glob MFr SerPl Elph 16.7 % Normal 4 8.8 - 19.2 [facility] B-Globulin SerPl Elph-mCnc 0.8 g/dL Normal 4 0.6 - 1 [facility] Alpha2 Glob MFr SerPl Elph 7.5 % Normal 4 7.5 - 13.4 [facility] Albumin SerPl-mCnc 3.5 g/dL Below low normal 03/12 4 3.7 - 4.9 [facility] [place] LC Free/Lambda Free Ser Neph 1.25 Normal 4 0.26 - 1.65 [facility] Lambda LC Free Ser Neph-mCnc 4.7 mg/dL Above high normal 4 0.57 - 2.63 [facility] [place] LC Free Ser Neph-mCnc 5.87 mg/dL Above high normal 4 0.33 - 1.94 [facility] ABO Group Bld A Normal 4 [facility] Bld gp Ab Scn SerPl Ql Negative Normal 4 [facility] Rh Bld Positive Normal 4 [facility] IgM SerPl-mCnc 300.0 mg/dL Above high normal 03/09/20 2 4 45 - 281 [facility] IgA SerPl-mCnc 282.0 mg/dL Normal 4 66 - 433 [facility] IgG SerPl-mCnc 934.0 mg/dL Normal 4 635 - 1741 [facility] Monocytes # Bld Auto 0.3 K/mcL Normal 4 0 - 0.8 [facility] Neutrophils # Bld Auto 1.7 K/mcL Below low normal 4 1.8 - 7.8 [facility] Hgb Bld-mCnc 8.9 g/dL Below low normal 4 13.5 - 18 [facility] Basophils/leuk NFr Bld Auto 0.7 % Normal 4 0 - 2 [facility] Neutrophils/leuk NFr Bld Auto 63.5 % Normal 4 44 - 74 [facility] Lymphocytes # Bld Auto 0.59 K/mcL Below low normal 4 1 - 3.2 [facility] PMV Bld Auto 10.7 FL Normal 4 7.4 - 11.4 [facility] RDW RBC Auto-Rto 16.3 % Normal 4 12.1 - 17.7 [facility] RBC # Bld Auto 2.96 M/mcL Below low normal 4 4.7 - 6 [facility] MCV RBC Auto 97.6 FL Normal 4 78 - 100 [facility] Monocytes/leuk NFr Bld Auto 11.2 % Normal 4 2 - 12 [facility] MCHC RBC Auto-mCnc 30.8 g/dL Below low normal 03/09 4 32 - 36 [facility] Hct VFr Bld Auto 28.9 % Below low normal 02 4 40 - 54 [facility] Lymphocytes/leuk NFr Bld Auto 22.0 % Normal 4 20 - 48 [facility] Eosinophil/leuk NFr Bld Auto 2.2 % Normal 4 0 - 6 [facility] MCH RBC Qn Auto 30.1 pcg Normal 4 25 - 33 [facility] Basophils # Bld Auto <0.03 K/mcL Normal 4 0 - 0.2 [facility] Platelet # Bld Auto 91.0 K/mcL Below low normal 02/20 4 150 - 450 [facility] Eosinophil # Bld Auto 0.06 K/mcL Normal 4 0 - 0.5 [facility] WBC # Bld Auto 2.7 K/mcL Below low normal 4 4 - 10.5 [facility] Vit B12 SerPl-mCnc 1245.0 pcg/mL Above high normal 4 180 - 914 [facility] Folate SerPl-mCnc 13.2 ng/ml Normal 4 - [facility] Ferritin SerPl-mCnc 20.0 ng/mL Normal 02/25/20 2 4 20 - 250 [facility] TIBC SerPl-mCnc 421.0 mcg/dL Normal 4 250 - 450 [facility] Iron Satn MFr SerPl 16.0 % Below low normal 4 20 - 45 [facility] Iron SerPl-mCnc 67.0 mcg/dL Normal 4 49 - 181 [facility] UIBC SerPl-mCnc 354.0 mcg/dL Normal 4 155 - 355 [facility] Eosinophil/leuk NFr Bld Auto 3.0 % Normal 4 0 - 6 [facility] Basophils # Bld Auto 0.03 K/mcL Normal 4 0 - 0.2 [facility] RBC # Bld Auto 3.06 M/mcL Below low normal 4 4.7 - 6 [facility] MCV RBC Auto 95.8 FL Normal 4 78 - 100 [facility] RDW RBC Auto-Rto 17.4 % Normal 4 12.1 - 17.7 [facility] Platelet # Bld Auto 89.0 K/mcL Below low normal 4 150 - 450 [facility] WBC # Bld Auto 3.7 K/mcL Below low normal 4 4 - 10.5 [facility] Lymphocytes # Bld Auto 0.49 K/mcL Below low normal 4 1 - 3.2 [facility] Neutrophils # Bld Auto 2.58 K/mcL Normal 4 1.8 - 7.8 [facility] Basophils/leuk NFr Bld Auto 0.8 % Normal 4 0 - 2 [facility] Monocytes # Bld Auto 0.48 K/mcL Normal 4 0 - 0.8 [facility] Eosinophil # Bld Auto 0.11 K/mcL Normal 4 0 - 0.5 [facility] Neutrophils/leuk NFr Bld Auto 69.9 % Normal 4 44 - 74 [facility] Lymphocytes/leuk NFr Bld Auto 13.3 % Below low normal 4 20 - 48 [facility] MCH RBC Qn Auto 29.7 pcg Normal 4 25 - 33 [facility] Hgb Bld-mCnc 9.1 g/dL Below low normal 4 13.5 - 18 [facility] MCHC RBC Auto-mCnc 31.1 g/dL Below low normal 02/23 4 32 - 36 [facility] PMV Bld Auto 10.1 FL Normal 4 7.4 - 11.4 [facility] Monocytes/leuk NFr Bld Auto 13.0 % Above high normal 4 2 - 12 [facility] Hct VFr Bld Auto 29.3 % Below low normal 02 4 40 - 54 [facility] ANION GAP SERPL SCNC 9.0 mmol/L Normal 4 5 - 14 [facility] HCO3 SER SCNC 24.0 mmol/L Normal 4 24 - 32 [facility] GLUCOSE P FAST SERPL MCNC 110.0 mg/dL Above high normal 4 70 - 99 [facility] CALCIUM SERPL MCNC 9.2 mg/dL Normal 4 8.4 - 10.2 [facility] CHLORIDE SERPL SCNC 103.0 mmol/L Normal 02/06/20 2 4 98 - 107 [facility] CREAT SERPL MCNC 1.3 mg/dL Normal 4 0.7 - 1.3 [facility] Glomerular filtration rate/1.73 sq M. predicted 65.0 Normal 4 60 - [facility] BUN SERPL MCNC 15.0 mg/dL Normal 4 9 - 20 [facility] POTASSIUM SERPL SCNC 4.7 mmol/L Normal 4 3.5 - 5.1 [facility] SODIUM SERPL SCNC 136.0 mmol/L Normal 4 135 - 145 [facility] MCHC RBC AUTO MCNC 30.9 g/dL Below low normal 02/04 4 32 - 36 [facility] EOSINOPHIL NFR BLD AUTO 3.0 % Normal 4 0 - 6 [facility] NEUTROPHILS NO. BLD AUTO 3.5 K/uL Normal 4 1.8 - 7.8 [facility] EOSINOPHIL NO. BLD AUTO 0.1 K/uL Normal 4 0 - 0.5 [facility] BASOPHILS IN BLOOD BY AUTOMATED COUNT 0.0 K/uL Normal 4 0 - 0.2 [facility] MCH RBC QN AUTO 28.6 pg Normal 4 25 - 33 [facility] WBC NO. BLD AUTO 4.6 K/uL Normal 4 4 - 10.5 [facility] MCV RBC AUTO 92.6 fL Normal 4 78 - 100 [facility] IMMATURE GRANULOCYTE, PERCENT 0.2 % Normal 4 0 - 1 [facility] IMMATURE GRANULOCYTE, ABSOLUTE 0.01 k/uL Normal 4 - 0.1 [facility] HGB BLD MCNC 9.3 g/dL Below low normal 4 13.5 - 18 [facility] LYMPHOCYTES NO. BLD AUTO 0.5 K/uL Below low normal 4 1 - 3.2 [facility] MONOCYTES NFR BLD AUTO 8.9 % Normal 4 2 - 12 [facility] HCT VFR BLD AUTO 30.1 % Below low normal 02 4 40 - 54 [facility] LYMPHOCYTES NFR BLD AUTO 10.8 % Below low normal 4 20 - 48 [facility] RDW RBC AUTO RTO 18.1 % Above high normal 4 12.1 - 17.7 [facility] BASOPHILS NFR BLD AUTO 0.9 % Normal 4 0 - 2 [facility] NEUTROPHILS NFR BLD AUTO 76.2 % Above high normal 4 44 - 74 [facility] PMV BLD AUTO 10.8 fL Normal 4 7.4 - 11.4 [facility] MONOCYTES NO. BLD AUTO 0.4 K/uL Normal 4 0 - 0.8 [facility] PLATELET NO. BLD AUTO 120.0 K/uL Below low normal 4 150 - 450 [facility] RBC NO. BLD AUTO 3.25 M/uL Below low normal 02 4 4.7 - 6 [facility] ABO+RH GP BLD A POSITIVE Normal 4 [facility] BLOOD BANK CMNT PATIENT-IMP Testing performed at [facility], [address] [place] [id number], Sarah Bonds MD [employer], [facility] [id number] Normal 4 [facility] BLD GP AB SCN SERPL QL NEGATIVE Normal 4 [facility] BASOPHILS NFR BLD AUTO 0.7 % Normal 4 0 - 2 [facility] NEUTROPHILS NFR BLD AUTO 72.6 % Normal 4 44 - 74 [facility] NEUTROPHILS NO. BLD AUTO 3.1 K/uL Normal 4 1.8 - 7.8 [facility] IMMATURE GRANULOCYTE, ABSOLUTE 0.01 k/uL Normal 4 - 0.1 [facility] HCT VFR BLD AUTO 27.1 % Below low normal 02 4 40 - 54 [facility] PMV BLD AUTO 9.6 fL Normal 4 7.4 - 11.4 [facility] WBC NO. BLD AUTO 4.3 K/uL Normal 4 4 - 10.5 [facility] BASOPHILS IN BLOOD BY AUTOMATED COUNT 0.0 K/uL Normal 4 0 - 0.2 [facility] MCV RBC AUTO 90.9 fL Normal 4 78 - 100 [facility] IMMATURE GRANULOCYTE, PERCENT 0.2 % Normal 4 0 - 1 [facility] RBC NO. BLD AUTO 2.98 M/uL Below low normal 02 4 4.7 - 6 [facility] MONOCYTES NFR BLD AUTO 9.7 % Normal 4 2 - 12 [facility] HGB BLD MCNC 8.2 g/dL Below low normal 4 13.5 - 18 [facility] LYMPHOCYTES NFR BLD AUTO 12.0 % Below low normal 4 20 - 48 [facility] MONOCYTES NO. BLD AUTO 0.4 K/uL Normal 4 0 - 0.8 [facility] EOSINOPHIL NO. BLD AUTO 0.2 K/uL Normal 4 0 - 0.5 [facility] EOSINOPHIL NFR BLD AUTO 4.8 % Normal 4 0 - 6 [facility] PLATELET NO. BLD AUTO 133.0 K/uL Below low normal 4 150 - 450 [facility] MCHC RBC AUTO MCNC 30.3 g/dL Below low normal 01/21 4 32 - 36 [facility] MCH RBC QN AUTO 27.5 pg Normal 4 25 - 33 [facility] RDW RBC AUTO RTO 16.8 % Normal 4 12.1 - 17.7 [facility] LYMPHOCYTES NO. BLD AUTO 0.5 K/uL Below low normal 4 1 - 3.2 [facility] BLD GP AB SCN SERPL QL NEGATIVE Normal 4 [facility] BLOOD BANK CMNT PATIENT-IMP Testing performed at [facility], [address] [place] [phone], Sarah Bonds MD [employer], [facility] [id number] Normal 4 [facility] ABO+RH GP BLD A POSITIVE Normal 4 [facility] TRANS NUM UNITS PACKED RBC Refer to TYPE AND SCREEN Order, for Red Cell Product Data / Detail Normal 4 [facility] MAGNESIUM SERPL MCNC 1.4 mg/dL Below low normal 4 1.7 - 2.8 [facility] EOSINOPHIL NO. BLD AUTO 0.1 K/uL Normal 4 0 - 0.5 [facility] WBC NO. BLD AUTO 3.9 K/uL Below low normal 02 4 4 - 10.5 [facility] IMMATURE GRANULOCYTE, ABSOLUTE 0.01 k/uL Normal 4 - 0.1 [facility] MCH RBC QN AUTO 29.9 pg Normal 4 25 - 33 [facility] BASOPHILS IN BLOOD BY AUTOMATED COUNT 0.0 K/uL Normal 4 0 - 0.2 [facility] RBC NO. BLD AUTO 2.31 M/uL Below low normal 02 4 4.7 - 6 [facility] LYMPHOCYTES NO. BLD AUTO 0.5 K/uL Below low normal 4 1 - 3.2 [facility] NEUTROPHILS NO. BLD AUTO 2.8 K/uL Normal 4 1.8 - 7.8 [facility] NEUTROPHILS NFR BLD AUTO 71.3 % Normal 4 44 - 74 [facility] PLATELET NO. BLD AUTO 91.0 K/uL Below low normal 4 150 - 450 [facility] MONOCYTES NO. BLD AUTO 0.5 K/uL Normal 4 0 - 0.8 [facility] BASOPHILS NFR BLD AUTO 1.0 % Normal 4 0 - 2 [facility] IMMATURE GRANULOCYTE, PERCENT 0.3 % Normal 4 0 - 1 [facility] HGB BLD MCNC 6.9 g/dL Below low normal 4 13.5 - 18 [facility] PMV BLD AUTO 10.0 fL Normal 4 7.4 - 11.4 [facility] MCV RBC AUTO 94.8 fL Normal 4 78 - 100 [facility] LYMPHOCYTES NFR BLD AUTO 11.8 % Below low normal 4 20 - 48 [facility] MONOCYTES NFR BLD AUTO 12.3 % Above high normal 4 2 - 12 [facility] HCT VFR BLD AUTO 21.9 % Below low normal 02 4 40 - 54 [facility] EOSINOPHIL NFR BLD AUTO 3.3 % Normal 4 0 - 6 [facility] RDW RBC AUTO RTO 19.5 % Above high normal 4 12.1 - 17.7 [facility] MCHC RBC AUTO MCNC 31.5 g/dL Below low normal 01/07 4 32 - 36 [facility] BLD PROD DISPOSITION BPU TRANSFUSED Normal 4 [facility] BLD PROD TYP BPU RBC LR Normal 4 [facility] VIRA XM SERPL-IMP COMPATIBLE Normal 4 [facility] BPU ID [id number] Normal 4 [facility] TRANSFUSION STATUS PATIENT QL OK TO TRANSFUSE Normal 4 [facility] E CODE =<[id number] Normal 4 [facility] OTHER BLD PROD BPU 0.0 Normal 4 [facility] BLD GP AB SCN SERPL QL NEGATIVE Normal 4 [facility] ABO+RH GP BLD A POSITIVE Normal 4 [facility] BLOOD BANK CMNT PATIENT-IMP Testing performed at [facility], [address] [place] [phone], Sarah Bonds MD [employer], [facility] [id number] Normal 4 [facility] URATE SERPL MCNC 7.8 mg/dL Normal 4 3.5 - 8.5 [facility] HCO3 SER SCNC 22.0 mmol/L Below low normal 4 24 - 32 [facility] POTASSIUM SERPL SCNC 3.7 mmol/L Normal 4 3.5 - 5.1 [facility] CHLORIDE SERPL SCNC 103.0 mmol/L Normal 01/08/20 2 4 98 - 107 [facility] CALCIUM SERPL MCNC 8.7 mg/dL Normal 4 8.4 - 10.2 [facility] Glomerular filtration rate/1.73 sq M. predicted 79.0 Normal 4 60 - [facility] ANION GAP SERPL SCNC 8.0 mmol/L Normal 4 5 - 14 [facility] CREAT SERPL MCNC 1.1 mg/dL Normal 4 0.7 - 1.3 [facility] BUN SERPL MCNC 16.0 mg/dL Normal 4 9 - 20 [facility] GLUCOSE P FAST SERPL MCNC 114.0 mg/dL Above high normal 4 70 - 99 [facility] SODIUM SERPL SCNC 133.0 mmol/L Below low normal 4 135 - 145 [facility] ABO+RH GP BLD A POSITIVE Normal 4 [facility] BLOOD BANK CMNT PATIENT-IMP Testing performed at [facility], [address] [place] [phone], Sarah Bonds MD [employer], [facility] [id number] Normal 4 [facility] BLD GP AB SCN SERPL QL NEGATIVE Normal 4 [facility] TRANS NUM UNITS PACKED RBC Refer to TYPE AND SCREEN Order, for Red Cell Product Data / Detail Normal 4 [facility] BLOOD BANK CMNT PATIENT-IMP Testing performed at [facility], [address] [place] [phone], Sarah Bonds MD [employer], [facility] [id number] Normal 4 [facility] ABO+RH GP BLD A POSITIVE Normal 4 [facility] BLD GP AB SCN SERPL QL NEGATIVE Normal 4 [facility] BLD PROD DISPOSITION BPU TRANSFUSED Normal 4 [facility] VIRA XM SERPL-IMP COMPATIBLE Normal 4 [facility] E CODE =<[id number] Normal 4 [facility] TRANSFUSION STATUS PATIENT QL OK TO TRANSFUSE Normal 4 [facility] BLD PROD TYP BPU RBC LR Normal 4 [facility] OTHER BLD PROD BPU 0.0 Normal 4 [facility] BPU ID [id number] Normal 4 [facility] ABO+RH GP BLD A POSITIVE Normal 4 [facility] BLD GP AB SCN SERPL QL NEGATIVE Normal 4 [facility] BLOOD BANK CMNT PATIENT-IMP Testing performed at [facility], [address] [place] [phone], Sarah Bonds MD [employer]ic, [facility] [id number] Normal 4 [facility] PLATELET NO. BLD AUTO 84.0 K/uL Below low normal 4 150 - 450 [facility] MCV RBC AUTO 94.8 fL Normal 4 78 - 100 [facility] LYMPHOCYTES NO. BLD AUTO 0.8 K/uL Below low normal 4 1 - 3.2 [facility] NEUTROPHILS NFR BLD AUTO 63.6 % Normal 4 44 - 74 [facility] IMMATURE GRANULOCYTE, ABSOLUTE 0.01 k/uL Normal 4 - 0.1 [facility] HCT VFR BLD AUTO 21.7 % Below low normal 02 4 40 - 54 [facility] BASOPHILS NFR BLD AUTO 0.5 % Normal 4 0 - 2 [facility] RDW RBC AUTO RTO 20.4 % Above high normal 4 12.1 - 17.7 [facility] MCHC RBC AUTO MCNC 30.4 g/dL Below low normal 12/31 4 32 - 36 [facility] EOSINOPHIL NO. BLD AUTO 0.3 K/uL Normal 4 0 - 0.5 [facility] EOSINOPHIL NFR BLD AUTO 7.8 % Above high normal 4 0 - 6 [facility] IMMATURE GRANULOCYTE, PERCENT 0.3 % Normal 4 0 - 1 [facility] BASOPHILS IN BLOOD BY AUTOMATED COUNT 0.0 K/uL Normal 4 0 - 0.2 [facility] MCH RBC QN AUTO 28.8 pg Normal 4 25 - 33 [facility] MONOCYTES NO. BLD AUTO 0.3 K/uL Normal 4 0 - 0.8 [facility] RBC NO. BLD AUTO 2.29 M/uL Below low normal 02 4 4.7 - 6 [facility] NEUTROPHILS NO. BLD AUTO 2.5 K/uL Normal 4 1.8 - 7.8 [facility] MONOCYTES NFR BLD AUTO 8.1 % Normal 4 2 - 12 [facility] LYMPHOCYTES NFR BLD AUTO 19.7 % Below low normal 4 20 - 48 [facility] PMV BLD AUTO 9.9 fL Normal 4 7.4 - 11.4 [facility] WBC NO. BLD AUTO 4.0 K/uL Normal 4 4 - 10.5 [facility] HGB BLD MCNC 6.6 g/dL Below low normal 4 13.5 - 18 [facility] MAGNESIUM SERPL MCNC 1.4 mg/dL Below low normal 4 1.7 - 2.8 [facility] HCO3 SER SCNC 22.0 mmol/L Below low normal 4 24 - 32 [facility] BUN SERPL MCNC 23.0 mg/dL Above high normal 12/30/19 2 4 9 - 20 [facility] CALCIUM SERPL MCNC 9.1 mg/dL Normal 4 8.4 - 10.2 [facility] Glomerular filtration rate/1.73 sq M. predicted 79.0 Normal 4 60 - [facility] SODIUM SERPL SCNC 137.0 mmol/L Normal 4 135 - 145 [facility] CREAT SERPL MCNC 1.1 mg/dL Normal 4 0.7 - 1.3 [facility] GLUCOSE P FAST SERPL MCNC 137.0 mg/dL Above high normal 4 70 - 99 [facility] CHLORIDE SERPL SCNC 104.0 mmol/L Normal 12/30/19 2 4 98 - 107 [facility] ANION GAP SERPL SCNC 11.0 mmol/L Normal 4 5 - 14 [facility] POTASSIUM SERPL SCNC 4.7 mmol/L Normal 4 3.5 - 5.1 [facility] ABO+RH GP BLD A POSITIVE Normal 4 [facility] BLD GP AB SCN SERPL QL NEGATIVE Normal 4 [facility] BLOOD BANK CMNT PATIENT-IMP Testing performed at [facility], [address] [place] [id number] [phone], Sarah Bonds MD [employer]ic, [facility] [id number] Normal 4 [facility] MONOCYTES NO. BLD AUTO 0.5 K/uL Normal 4 0 - 0.8 [facility] LYMPHOCYTES NFR BLD AUTO 13.5 % Below low normal 4 20 - 48 [facility] BASOPHILS NFR BLD AUTO 0.8 % Normal 4 0 - 2 [facility] HGB BLD MCNC 8.4 g/dL Below low normal 4 13.5 - 18 [facility] MCHC RBC AUTO MCNC 31.6 g/dL Below low normal 12/23 4 32 - 36 [facility] WBC NO. BLD AUTO 4.9 K/uL Normal 4 4 - 10.5 [facility] NEUTROPHILS NFR BLD AUTO 70.0 % Normal 4 44 - 74 [facility] EOSINOPH[facility] NFR BLD AUTO 6.1 % Above high normal 4 0 - 6 [facility] PMV BLD AUTO 9.3 fL Normal 4 7.4 - 11.4 [facility] IMMATURE GRANULOCYTE, PERCENT 0.2 % Normal 4 0 - 1 [facility] PLATELET NO. BLD AUTO 138.0 K/uL Below low normal 4 150 - 450 [facility] LYMPHOCYTES NO. BLD AUTO 0.7 K/uL Below low normal 4 1 - 3.2 [facility] MONOCYTES NFR BLD AUTO 9.4 % Normal 4 2 - 12 [facility] RDW RBC AUTO RTO 16.6 % Normal 4 12.1 - 17.7 [facility] MCH RBC QN AUTO 27.8 pg Normal 4 25 - 33 [facility] HCT VFR BLD AUTO 26.6 % Below low normal 02 4 40 - 54 [facility] IMMATURE GRANULOCYTE, ABSOLUTE 0.01 k/uL Normal 4 - 0.1 [facility] NEUTROPHILS NO. BLD AUTO 3.4 K/uL Normal 4 1.8 - 7.8 [facility] MCV RBC AUTO 88.1 fL Normal 4 78 - 100 [facility] BASOPHILS IN BLOOD BY AUTOMATED COUNT 0.0 K/uL Normal 4 0 - 0.2 [facility] RBC NO. BLD AUTO 3.02 M/uL Below low normal 02 4 4.7 - 6 [facility] EOSINOPHIL NO. BLD AUTO 0.3 K/uL Normal 4 0 - 0.5 [facility] HCO3 SER SCNC 24.0 mmol/L Normal 4 24 - 32 [facility] CREAT SERPL MCNC 2.0 mg/dL Above high normal 4 0.7 - 1.3 [facility] Glomerular filtration rate/1.73 sq M. predicted 39.0 Below low normal 4 60 - [facility] ANION GAP SERPL SCNC 13.0 mmol/L Normal 4 5 - 14 [facility] CHLORIDE SERPL SCNC 97.0 mmol/L Below low normal 11/22 4 98 - 107 [facility] BUN SERPL MCNC 47.0 mg/dL Above high normal 12/20/19 2 4 9 - 20 [facility] POTASSIUM SERPL SCNC 4.2 mmol/L Normal 4 3.5 - 5.1 [facility] SODIUM SERPL SCNC 134.0 mmol/L Below low normal 4 135 - 145 [facility] CALCIUM SERPL MCNC 9.7 mg/dL Normal 4 8.4 - 10.2 [facility] GLUCOSE SERPL MCNC 208.0 mg/dL Above high normal 11/22 4 70 - 199 [facility] MAGNESIUM SERPL MCNC 1.5 mg/dL Below low normal 4 1.7 - 2.8 [facility] SODIUM SERPL SCNC 131.0 mmol/L Below low normal 4 135 - 145 [facility] BUN SERPL MCNC 48.0 mg/dL Above high normal 12/19/19 2 4 9 - 20 [facility] ANION GAP SERPL SCNC 15.0 mmol/L Above high normal 4 5 - 14 [facility] CHLORIDE SERPL SCNC 95.0 mmol/L Below low normal 11/21 4 98 - 107 [facility] Glomerular filtration rate/1.73 sq M. predicted 30.0 Below low normal 4 60 - [facility] HCO3 SER SCNC 21.0 mmol/L Below low normal 4 24 - 32 [facility] POTASSIUM SERPL SCNC 4.4 mmol/L Normal 4 3.5 - 5.1 [facility] GLUCOSE P FAST SERPL MCNC 231.0 mg/dL Above high normal 4 70 - 99 [facility] CALCIUM SERPL MCNC 9.4 mg/dL Normal 4 8.4 - 10.2 [facility] CREAT SERPL MCNC 2.5 mg/dL Above high normal 4 0.7 - 1.3 [facility] MAGNESIUM SERPL MCNC 1.2 mg/dL Below low normal 4 1.7 - 2.8 [facility] BLOOD BANK CMNT PATIENT-IMP Testing performed at [facility], [address] [place] [id number] [phone], Sarah Bonds MD [employer]ic, [facility] [id number] Normal 4 [facility] BLD GP AB SCN SERPL QL NEGATIVE Normal 4 [facility] ABO+RH GP BLD A POSITIVE Normal 4 [facility] MCH RBC QN AUTO 27.6 pg Normal 4 25 - 33 [facility] MONOCYTES NFR BLD AUTO 10.2 % Normal 4 2 - 12 [facility] NEUTROPHILS NFR BLD AUTO 71.9 % Normal 4 44 - 74 [facility] RDW RBC AUTO RTO 17.2 % Normal 4 12.1 - 17.7 [facility] EOSINOPHIL NO. BLD AUTO 0.4 K/uL Normal 4 0 - 0.5 [facility] BASOPHILS IN BLOOD BY AUTOMATED COUNT 0.1 K/uL Normal 4 0 - 0.2 [facility] PLATELET NO. BLD AUTO 241.0 K/uL Normal 4 150 - 450 [facility] HCT VFR BLD AUTO 30.1 % Below low normal 02 4 40 - 54 [facility] LYMPHOCYTES NFR BLD AUTO 12.8 % Below low normal 4 20 - 48 [facility] HGB BLD MCNC 9.4 g/dL Below low normal 4 13.5 - 18 [facility] EOSINOPHIL NFR BLD AUTO 4.0 % Normal 4 0 - 6 [facility] NEUTROPHILS NO. BLD AUTO 6.7 K/uL Normal 4 1.8 - 7.8 [facility] IMMATURE GRANULOCYTE, PERCENT 0.3 % Normal 4 0 - 1 [facility] MONOCYTES NO. BLD AUTO 1.0 K/uL Above high normal 4 0 - 0.8 [facility] PMV BLD AUTO 10.3 fL Normal 4 7.4 - 11.4 [facility] RBC NO. BLD AUTO 3.41 M/uL Below low normal 02 4 4.7 - 6 [facility] IMMATURE GRANULOCYTE, ABSOLUTE 0.03 k/uL Normal 4 - 0.1 [facility] BASOPHILS NFR BLD AUTO 0.8 % Normal 4 0 - 2 [facility] MCHC RBC AUTO MCNC 31.2 g/dL Below low normal 12/17 4 32 - 36 [facility] LYMPHOCYTES NO. BLD AUTO 1.2 K/uL Normal 4 1 - 3.2 [facility] WBC NO. BLD AUTO 9.3 K/uL Normal 4 4 - 10.5 [facility] MCV RBC AUTO 88.3 fL Normal 4 78 - 100 [facility] GLUCOSE BLDC GLUCOMTR MCNC 123.0 mg/dL Normal 4 70 - 199 [facility] GLUCOSE BLDC GLUCOMTR MCNC 137.0 mg/dL Normal 4 70 - 199 [facility] MAGNESIUM SERPL MCNC 1.4 mg/dL Below low normal 4 1.7 - 2.8 [facility] CREAT SERPL MCNC 1.3 mg/dL Normal 4 0.7 - 1.3 [facility] CALCIUM SERPL MCNC 8.6 mg/dL Normal 4 8.4 - 10.2 [facility] SODIUM SERPL SCNC 138.0 mmol/L Normal 4 135 - 145 [facility] GLUCOSE SERPL MCNC 108.0 mg/dL Normal 4 70 - 199 [facility] CHLORIDE SERPL SCNC 99.0 mmol/L Normal 12/12/19 2 4 98 - 107 [facility] POTASSIUM SERPL SCNC 3.8 mmol/L Normal 4 3.5 - 5.1 [facility] HCO3 SER SCNC 27.0 mmol/L Normal 4 24 - 32 [facility] ANION GAP SERPL SCNC 12.0 mmol/L Normal 4 5 - 14 [facility] BUN SERPL MCNC 23.0 mg/dL Above high normal 12/12/19 2 4 9 - 20 [facility] Glomerular filtration rate/1.73 sq M. predicted 65.0 Normal 4 60 - [facility] WBC NO. BLD AUTO 6.5 K/uL Normal 4 4 - 10.5 [facility] RDW RBC AUTO RTO 19.8 % Above high normal 4 12.1 - 17.7 [facility] RBC NO. BLD AUTO 2.97 M/uL Below low normal 02 4 4.7 - 6 [facility] MCH RBC QN AUTO 29.1 pg Normal 4 25 - 33 [facility] HGB BLD MCNC 8.6 g/dL Below low normal 4 13.5 - 18 [facility] HCT VFR BLD AUTO 25.6 % Below low normal 02 4 40 - 54 [facility] MCHC RBC AUTO MCNC 33.7 g/dL Normal 4 32 - 36 [facility] MCV RBC AUTO 86.3 fL Normal 4 78 - 100 [facility] PT TIME PPP 16.9 sec Above high normal 4 10.5 - 13.3 [facility] INR PPP 1.4 Above high normal 4 0.8 - 1.1 [facility] GLUCOSE BLDC GLUCOMTR MCNC 133.0 mg/dL Normal 4 70 - 199 [facility] GLUCOSE BLDC GLUCOMTR MCNC 140.0 mg/dL Normal 4 70 - 199 [facility] GLUCOSE BLDC GLUCOMTR MCNC 113.0 mg/dL Normal 4 70 - 199 [facility] SODIUM UR SCNC 107.0 mmol/L Normal 4 [facility] CREAT UR MCNC 25.1 mg/dL Normal 4 [facility] GLUCOSE BLDC GLUCOMTR MCNC 100.0 mg/dL Normal 4 70 - 199 [facility] GLUCOSE BLDC GLUCOMTR MCNC 100.0 mg/dL Normal 4 70 - 199 [facility] Glomerular filtration rate/1.73 sq M. predicted 79.0 Normal 4 60 - [facility] ANION GAP SERPL SCNC 14.0 mmol/L Normal 4 5 - 14 [facility] POTASSIUM SERPL SCNC 3.5 mmol/L Normal 4 3.5 - 5.1 [facility] GLUCOSE SERPL MCNC 94.0 mg/dL Normal 4 70 - 199 [facility] HCO3 SER SCNC 22.0 mmol/L Below low normal 4 24 - 32 [facility] CALCIUM SERPL MCNC 7.8 mg/dL Below low normal 12/10 4 8.4 - 10.2 [facility] SODIUM SERPL SCNC 137.0 mmol/L Normal 4 135 - 145 [facility] BUN SERPL MCNC 19.0 mg/dL Normal 4 9 - 20 [facility] CREAT SERPL MCNC 1.1 mg/dL Normal 4 0.7 - 1.3 [facility] CHLORIDE SERPL SCNC 101.0 mmol/L Normal 12/11/19 2 4 98 - 107 [facility] MAGNESIUM SERPL MCNC 1.2 mg/dL Below low normal 4 1.7 - 2.8 [facility] GLUCOSE BLDC GLUCOMTR MCNC 137.0 mg/dL Normal 4 70 - 199 [facility] GLUCOSE BLDC GLUCOMTR MCNC 116.0 mg/dL Normal 4 70 - 199 [facility] GLUCOSE BLDC GLUCOMTR MCNC 142.0 mg/dL Normal 4 70 - 199 [facility] GLUCOSE BLDC GLUCOMTR MCNC 100.0 mg/dL Normal 4 70 - 199 [facility] RBC NO. BLD AUTO 3.02 M/uL Below low normal 02 4 4.7 - 6 [facility] PLATELET NO. BLD AUTO 173.0 K/uL Normal 4 150 - 450 [facility] MCV RBC AUTO 86.7 fL Normal 4 78 - 100 [facility] RDW RBC AUTO RTO 19.8 % Above high normal 4 12.1 - 17.7 [facility] MCHC RBC AUTO MCNC 32.8 g/dL Normal 4 32 - 36 [facility] MCH RBC QN AUTO 28.5 pg Normal 4 25 - 33 [facility] HCT VFR BLD AUTO 26.2 % Below low normal 02 4 40 - 54 [facility] HGB BLD MCNC 8.6 g/dL Below low normal 4 13.5 - 18 [facility] PMV BLD AUTO 7.7 fL Normal 4 7.4 - 11.4 [facility] WBC NO. BLD AUTO 6.3 K/uL Normal 4 4 - 10.5 [facility] MAGNESIUM SERPL MCNC 1.2 mg/dL Below low normal 4 1.7 - 2.8 [facility] Leukocyte esterase Ur Ql Strip.auto NEGATIVE Normal 4 - [facility] WBC number/area UrnS Auto 0.0 /HPF Normal 4 0 - 5 [facility] pH Ur Strip.auto 7.0 Normal 4 4.5 - 8 [facility] Prot Ur Ql Strip.auto NEGATIVE Normal 4 - [facility] Clarity Ur Refract.auto CLEAR Normal 4 [facility] Sp Gr Ur Strip.auto 1.008 Normal 12/10/19 2 4 1.005 - 1.03 [facility] Glucose Ur Ql Strip.auto NEGATIVE Normal 4 - [facility] Squamous number/area UrnS Auto 2.0 /LFP Normal 4 0 - 5 [facility] Mucous Threads Ur Ql Auto PRESENT Abnormal 4 - [facility] Nitrite Ur Ql Strip.auto NEGATIVE Normal 4 - [facility] RBC number/area UrnS Auto <1 Normal 4 0 - 3 [facility] Color Ur Auto YELLOW Normal 4 [facility] Ketones Ur Ql Strip.auto NEGATIVE Normal 4 - [facility] Hgb Ur Ql Strip.auto SMALL Abnormal 4 - [facility] SPECIMEN SOURCE XXX URINE CLEAN CATCH Normal 4 [facility] POTASSIUM SERPL SCNC 3.5 mmol/L Normal 4 3.5 - 5.1 [facility] GLUCOSE SERPL MCNC 92.0 mg/dL Normal 4 70 - 199 [facility] BUN SERPL MCNC 19.0 mg/dL Normal 4 9 - 20 [facility] CHLORIDE SERPL SCNC 98.0 mmol/L Normal 12/10/19 2 4 98 - 107 [facility] HCO3 SER SCNC 25.0 mmol/L Normal 4 24 - 32 [facility] ANION GAP SERPL SCNC 10.0 mmol/L Normal 4 5 - 14 [facility] CREAT SERPL MCNC 1.2 mg/dL Normal 4 0.7 - 1.3 [facility] SODIUM SERPL SCNC 133.0 mmol/L Below low normal 4 135 - 145 [facility] CALCIUM SERPL MCNC 8.4 mg/dL Normal 4 8.4 - 10.2 [facility] Glomerular filtration rate/1.73 sq M. predicted 71.0 Normal 4 60 - [facility] INR PPP 1.8 Above high normal 4 0.8 - 1.1 [facility] PT TIME PPP 20.8 sec Above high normal 4 10.5 - 13.3 [facility] GLUCOSE BLDC GLUCOMTR MCNC 125.0 mg/dL Normal 4 70 - 199 [facility] GLUCOSE BLDC GLUCOMTR MCNC 124.0 mg/dL Normal 4 70 - 199 [facility] GLUCOSE BLDC GLUCOMTR MCNC 128.0 mg/dL Normal 4 70 - 199 [facility] MRSA BY PCR Not Detected Normal 4 - [facility] TRANS NUM UNITS PACKED RBC Refer to TYPE AND SCREEN Order, for Red Cell Product Data / Detail Normal 4 [facility] GLUCOSE BLDC GLUCOMTR MCNC 149.0 mg/dL Normal 4 70 - 199 [facility] GLUCOSE BLDC GLUCOMTR MCNC 98.0 mg/dL Normal 4 70 - 199 [facility] RDW RBC AUTO RTO 19.6 % Above high normal 4 12.1 - 17.7 [facility] RBC NO. BLD AUTO 2.48 M/uL Below low normal 02 4 4.7 - 6 [facility] PLATELET NO. BLD AUTO 129.0 K/uL Below low normal 4 150 - 450 [facility] WBC NO. BLD AUTO 7.4 K/uL Normal 4 4 - 10.5 [facility] PMV BLD AUTO 7.8 fL Normal 4 7.4 - 11.4 [facility] MCHC RBC AUTO MCNC 33.0 g/dL Normal 4 32 - 36 [facility] MCV RBC AUTO 86.7 fL Normal 4 78 - 100 [facility] HGB BLD MCNC 7.1 g/dL Below low normal 4 13.5 - 18 [facility] HCT VFR BLD AUTO 21.5 % Below low normal 02 4 40 - 54 [facility] MCH RBC QN AUTO 28.6 pg Normal 4 25 - 33 [facility] GLUCOSE SERPL MCNC 98.0 mg/dL Normal 4 70 - 199 [facility] ANION GAP SERPL SCNC 9.0 mmol/L Normal 4 5 - 14 [facility] POTASSIUM SERPL SCNC 3.8 mmol/L Normal 4 3.5 - 5.1 [facility] CREAT SERPL MCNC 0.9 mg/dL Normal 4 0.7 - 1.3 [facility] BUN SERPL MCNC 18.0 mg/dL Normal 4 9 - 20 [facility] CHLORIDE SERPL SCNC 99.0 mmol/L Normal 12/09/19 2 4 98 - 107 [facility] Glomerular filtration rate/1.73 sq M. predicted 101.0 Normal 4 60 - [facility] SODIUM SERPL SCNC 130.0 mmol/L Below low normal 4 135 - 145 [facility] HCO3 SER SCNC 22.0 mmol/L Below low normal 4 24 - 32 [facility] CALCIUM SERPL MCNC 8.3 mg/dL Below low normal 12/08 4 8.4 - 10.2 [facility] MAGNESIUM SERPL MCNC 1.7 mg/dL Normal 4 1.7 - 2.8 [facility] Troponin I SerPl HS-mCnc 50.0 ng/L Above high normal 4 0 - 20 [facility] MAGNESIUM SERPL MCNC 1.5 mg/dL Below low normal 4 1.7 - 2.8 [facility] Troponin I SerPl HS-mCnc 56.0 ng/L Above high normal 4 0 - 20 [facility] Troponin I SerPl HS-mCnc 50.0 ng/L Above high normal 4 0 - 20 [facility] BLD PROD DISPOSITION BPU TRANSFUSED Normal 4 [facility] BPU ID [id number] Normal 4 [facility] E CODE =<[id number] Normal 4 [facility] TRANSFUSION STATUS PATIENT QL OK TO TRANSFUSE Normal 4 [facility] BLD PROD TYP BPU RBC LR Normal 4 [facility] OTHER BLD PROD BPU 0.0 Normal 4 [facility] VIRA XM SERPL-IMP COMPATIBLE Normal 4 [facility]-IMP Testing performed at [facility], [address] [place] [id number], Sarah Bonds MD [employer], [place] [id number] Normal 4 [facility] BLD GP AB SCN SERPL QL NEGATIVE Normal 4 [facility] ABO+RH GP BLD A POSITIVE Normal 4 [facility] INR PPP 1.6 Above high normal 4 0.8 - 1.1 [facility] PT TIME PPP 19.3 sec Above high normal 4 10.5 - 13.3 [facility] BNP BLD MCNC 1299.0 pg/mL Above high normal 4 0 - 100 [facility] D DIMER DDU PPP EIA MCNC 2588.0 ng/mL DDU Above high normal 4 - 231 [facility] Glomerular filtration rate/1.73 sq M. predicted 89.0 Normal 4 60 - [facility] ANION GAP SERPL SCNC 13.0 mmol/L Normal 4 5 - 14 [facility] CALCIUM SERPL MCNC 8.3 mg/dL Below low normal 12/08 4 8.4 - 10.2 [facility] GLUCOSE SERPL MCNC 110.0 mg/dL Normal 4 70 - 199 [facility] CHLORIDE SERPL SCNC 98.0 mmol/L Normal 12/09/19 2 4 98 - 107 [facility] POTASSIUM SERPL SCNC 4.1 mmol/L Normal 4 3.5 - 5.1 [facility] CREAT SERPL MCNC 1.0 mg/dL Normal 4 0.7 - 1.3 [facility] SODIUM SERPL SCNC 129.0 mmol/L Below low normal 4 135 - 145 [facility] HCO3 SER SCNC 18.0 mmol/L Below low normal 4 24 - 32 [facility] BUN SERPL MCNC 18.0 mg/dL Normal 4 9 - 20 [facility] BASOPHILS IN BLOOD BY AUTOMATED COUNT 0.0 K/uL Normal 4 0 - 0.2 [facility] BASOPHILS NFR BLD AUTO 0.4 % Normal 4 0 - 2 [facility] EOSINOPHIL NO. BLD AUTO 0.0 K/uL Normal 4 0 - 0.5 [facility] EOSINOPHIL NFR BLD AUTO 0.5 % Normal 4 0 - 6 [facility] MONOCYTES NO. BLD AUTO 0.8 K/uL Normal 4 0 - 0.8 [facility] LYMPHOCYTES NO. BLD AUTO 0.3 K/uL Below low normal 4 1 - 3.2 [facility] HCT VFR BLD AUTO 23.7 % Below low normal 02 4 40 - 54 [facility] PMV BLD AUTO 8.1 fL Normal 4 7.4 - 11.4 [facility] RDW RBC AUTO RTO 20.1 % Above high normal 4 12.1 - 17.7 [facility] WBC NO. BLD AUTO 7.9 K/uL Normal 4 4 - 10.5 [facility] HGB BLD MCNC 7.6 g/dL Below low normal 4 13.5 - 18 [facility] MONOCYTES NFR BLD AUTO 10.0 % Normal 4 2 - 12 [facility] RBC NO. BLD AUTO 2.72 M/uL Below low normal 02 4 4.7 - 6 [facility] MCHC RBC AUTO MCNC 32.2 g/dL Normal 4 32 - 36 [facility] LYMPHOCYTES NFR BLD AUTO 4.2 % Below low normal 4 20 - 48 [facility] NEUTROPHILS NFR BLD AUTO 84.9 % Above high normal 4 44 - 74 [facility] PLATELET NO. BLD AUTO 134.0 K/uL Below low normal 4 150 - 450 [facility] MCH RBC QN AUTO 28.1 pg Normal 4 25 - 33 [facility] MCV RBC AUTO 87.1 fL Normal 4 78 - 100 [facility] DIFFERENTIAL TYPE AUTOMATED Normal 4 [facility] NEUTROPHILS NO. BLD AUTO 6.7 K/uL Normal 4 1.8 - 7.8 [facility] BLD GP AB SCN SERPL QL NEGATIVE Normal 4 [facility] ABO+RH GP BLD A POSITIVE Normal 4 [facility] BLOOD BANK CMNT PATIENT-IMP Testing performed at [facility], [address] [place] [id number], Sarah Bonds MD [employer], [employer] [id number] Normal 4 [facility] Service [facility] XXX-Imp Leo Alinity M Normal 4 [facility] RSV RNA Nph Ql MARY+non-probe Not Detected Normal 4 [facility] FLUAV RNA Nph Ql MARY+non-probe Not Detected Normal 4 [facility] FLUBV RNA Nph Ql MARY+non-probe Not Detected Normal 4 [facility] XXX NASOPHARYNGEAL Normal 4 [facility] GLUCOSE BLDC GLUCOMTR MCNC 160.0 mg/dL Normal 4 70 - 199 [facility] GLUCOSE BLDC GLUCOMTR MCNC 105.0 mg/dL Normal 4 70 - 199 [facility] LYMPHOCYTES NFR BLD AUTO 6.1 % Below low normal 4 20 - 48 [facility] LYMPHOCYTES NO. BLD AUTO 0.4 K/uL Below low normal 4 1 - 3.2 [facility] EOSINOPHIL NFR BLD AUTO 3.3 % Normal 4 0 - 6 [facility] MONOCYTES NFR BLD AUTO 15.4 % Above high normal 4 2 - 12 [facility] DIFFERENTIAL TYPE AUTOMATED Normal 4 [facility] EOSINOPHIL NO. BLD AUTO 0.2 K/uL Normal 4 0 - 0.5 [facility] NEUTROPHILS NO. BLD AUTO 5.2 K/uL Normal 4 1.8 - 7.8 [facility] NEUTROPHILS NFR BLD AUTO 74.7 % Above high normal 4 44 - 74 [facility] MONOCYTES NO. BLD AUTO 1.1 K/uL Above high normal 4 0 - 0.8 [facility] BASOPHILS IN BLOOD BY AUTOMATED COUNT 0.0 K/uL Normal 4 0 - 0.2 [facility] BASOPHILS NFR BLD AUTO 0.5 % Normal 4 0 - 2 [facility] MCV RBC AUTO 86.7 fL Normal 4 78 - 100 [facility] PLATELET NO. BLD AUTO 95.0 K/uL Below low normal 4 150 - 450 [facility] HGB BLD MCNC 7.4 g/dL Below low normal 4 13.5 - 18 [facility] HCT VFR BLD AUTO 21.9 % Below low normal 02 4 40 - 54 [facility] MCHC RBC AUTO MCNC 33.6 g/dL Normal 12/07/19 2 4 32 - 36 [facility] PMV BLD AUTO 7.8 fL Normal 4 7.4 - 11.4 [facility] WBC NO. BLD AUTO 7.0 K/uL Normal 4 4 - 10.5 [facility] MCH RBC QN AUTO 29.1 pg Normal 4 25 - 33 [facility] RDW RBC AUTO RTO 20.2 % Above high normal 4 12.1 - 17.7 [facility] RBC NO. BLD AUTO 2.53 M/uL Below low normal 02 4 4.7 - 6 [facility] CALCIUM SERPL MCNC 8.1 mg/dL Below low normal 12/06 4 8.4 - 10.2 [facility] CHLORIDE SERPL SCNC 99.0 mmol/L Normal 12/07/19 2 4 98 - 107 [facility] Glomerular filtration rate/1.73 sq M. predicted 71.0 Normal 4 60 - [facility] CREAT SERPL MCNC 1.2 mg/dL Normal 4 0.7 - 1.3 [facility] HCO3 SER SCNC 23.0 mmol/L Below low normal 4 24 - 32 [facility] GLUCOSE SERPL MCNC 111.0 mg/dL Normal 4 70 - 199 [facility] BUN SERPL MCNC 21.0 mg/dL Above high normal 12/07/19 2 4 9 - 20 [facility] POTASSIUM SERPL SCNC 4.3 mmol/L Normal 4 3.5 - 5.1 [facility] ANION GAP SERPL SCNC 9.0 mmol/L Normal 4 5 - 14 [facility] SODIUM SERPL SCNC 131.0 mmol/L Below low normal 4 135 - 145 [facility] MAGNESIUM SERPL MCNC 1.5 mg/dL Below low normal 4 1.7 - 2.8 [facility] GLUCOSE BLDC GLUCOMTR MCNC 129.0 mg/dL Normal 4 70 - 199 [facility] GLUCOSE BLDC GLUCOMTR MCNC 135.0 mg/dL Normal 4 70 - 199 [facility] GLUCOSE BLDC GLUCOMTR MCNC 135.0 mg/dL Normal 4 70 - 199 [facility] GLUCOSE BLDC GLUCOMTR MCNC 93.0 mg/dL Normal 4 70 - 199 [facility] MAGNESIUM SERPL MCNC 2.0 mg/dL Normal 4 1.7 - 2.8 [facility] ANION GAP SERPL SCNC 7.0 mmol/L Normal 4 5 - 14 [facility] POTASSIUM SERPL SCNC 4.1 mmol/L Normal 4 3.5 - 5.1 [facility] GLUCOSE SERPL MCNC 97.0 mg/dL Normal 4 70 - 199 [facility] CHLORIDE SERPL SCNC 100.0 mmol/L Normal 12/06/19 2 4 98 - 107 [facility] HCO3 SER SCNC 25.0 mmol/L Normal 4 24 - 32 [facility] BUN SERPL MCNC 19.0 mg/dL Normal 4 9 - 20 [facility] CALCIUM SERPL MCNC 7.9 mg/dL Below low normal 12/05 4 8.4 - 10.2 [facility] Glomerular filtration rate/1.73 sq M. predicted 65.0 Normal 4 60 - [facility] SODIUM SERPL SCNC 132.0 mmol/L Below low normal 4 135 - 145 [facility] CREAT SERPL MCNC 1.3 mg/dL Normal 4 0.7 - 1.3 [facility] GLUCOSE BLDC GLUCOMTR MCNC 113.0 mg/dL Normal 4 70 - 199 [facility] VANCOMYCIN TROUGH SERPL MCNC 22.4 mcg/mL Above high normal 4 10 - 20 [facility] GLUCOSE BLDC GLUCOMTR MCNC 119.0 mg/dL Normal 4 70 - 199 [facility] GLUCOSE BLDC GLUCOMTR MCNC 146.0 mg/dL Normal 4 70 - 199 [facility] GLUCOSE BLDC GLUCOMTR MCNC 124.0 mg/dL Normal 4 70 - 199 [facility] MAGNESIUM SERPL MCNC 1.6 mg/dL Below low normal 4 1.7 - 2.8 [facility] CALCIUM SERPL MCNC 7.5 mg/dL Below low normal 12/04 4 8.4 - 10.2 [facility] CHLORIDE SERPL SCNC 98.0 mmol/L Normal 12/05/19 2 4 98 - 107 [facility] CREAT SERPL MCNC 1.5 mg/dL Above high normal 4 0.7 - 1.3 [facility] Glomerular filtration rate/1.73 sq M. predicted 55.0 Below low normal 4 60 - [facility] ANION GAP SERPL SCNC 8.0 mmol/L Normal 4 5 - 14 [facility] HCO3 SER SCNC 25.0 mmol/L Normal 4 24 - 32 [facility] BUN SERPL MCNC 17.0 mg/dL Normal 4 9 - 20 [facility] POTASSIUM SERPL SCNC 3.8 mmol/L Normal 4 3.5 - 5.1 [facility] GLUCOSE SERPL MCNC 119.0 mg/dL Normal 4 70 - 199 [facility] SODIUM SERPL SCNC 131.0 mmol/L Below low normal 4 135 - 145 [facility] DIFFERENTIAL TYPE AUTOMATED Normal 4 [facility] NEUTROPHILS NFR BLD AUTO 76.7 % Above high normal 4 44 - 74 [facility] LYMPHOCYTES NFR BLD AUTO 9.5 % Below low normal 4 20 - 48 [facility] MONOCYTES NO. BLD AUTO 1.0 K/uL Above high normal 4 0 - 0.8 [facility] LYMPHOCYTES NO. BLD AUTO 0.8 K/uL Below low normal 4 1 - 3.2 [facility] BASOPHILS NFR BLD AUTO 1.1 % Normal 4 0 - 2 [facility] EOSINOPHIL NFR BLD AUTO 1.2 % Normal 4 0 - 6 [facility] EOSINOPHIL NO. BLD AUTO 0.1 K/uL Normal 4 0 - 0.5 [facility] NEUTROPHILS NO. BLD AUTO 6.4 K/uL Normal 4 1.8 - 7.8 [facility] BASOPHILS IN BLOOD BY AUTOMATED COUNT 0.1 K/uL Normal 4 0 - 0.2 [facility] MONOCYTES NFR BLD AUTO 11.5 % Normal 4 2 - 12 [facility] MCHC RBC AUTO MCNC 33.4 g/dL Normal 4 32 - 36 [facility] RBC NO. BLD AUTO 2.56 M/uL Below low normal 02 4 4.7 - 6 [facility] HCT VFR BLD AUTO 22.2 % Below low normal 02 4 40 - 54 [facility] PLATELET NO. BLD AUTO 62.0 K/uL Below low normal 4 150 - 450 [facility] RDW RBC AUTO RTO 19.9 % Above high normal 4 12.1 - 17.7 [facility] MCH RBC QN AUTO 29.0 pg Normal 4 25 - 33 [facility] PMV BLD AUTO 7.7 fL Normal 4 7.4 - 11.4 [facility] WBC NO. BLD AUTO 8.3 K/uL Normal 4 4 - 10.5 [facility] HGB BLD MCNC 7.4 g/dL Below low normal 4 13.5 - 18 [facility] MCV RBC AUTO 86.8 fL Normal 4 78 - 100 [facility] GLUCOSE BLDC GLUCOMTR MCNC 135.0 mg/dL Normal 4 70 - 199 [facility] GLUCOSE BLDC GLUCOMTR MCNC 120.0 mg/dL Normal 4 70 - 199 [facility] GLUCOSE BLDC GLUCOMTR MCNC 138.0 mg/dL Normal 4 70 - 199 [facility] GLUCOSE BLDC GLUCOMTR MCNC 106.0 mg/dL Normal 4 70 - 199 [facility] GLUCOSE BLDC GLUCOMTR MCNC 113.0 mg/dL Normal 4 70 - 199 [facility] PMV BLD AUTO 7.2 fL Below low normal 4 7.4 - 11.4 [facility] WBC NO. BLD AUTO 7.4 K/uL Normal 4 4 - 10.5 [facility] RBC NO. BLD AUTO 2.86 M/uL Below low normal 02 4 4.7 - 6 [facility] RDW RBC AUTO RTO 20.0 % Above high normal 4 12.1 - 17.7 [facility] MCHC RBC AUTO MCNC 33.9 g/dL Normal 4 32 - 36 [facility] PLATELET NO. BLD AUTO 94.0 K/uL Below low normal 4 150 - 450 [facility] HCT VFR BLD AUTO 24.6 % Below low normal 02 4 40 - 54 [facility] HGB BLD MCNC 8.3 g/dL Below low normal 4 13.5 - 18 [facility] MCV RBC AUTO 86.1 fL Normal 4 78 - 100 [facility] MCH RBC QN AUTO 29.2 pg Normal 4 25 - 33 [facility] MAGNESIUM SERPL MCNC 1.1 mg/dL Below low normal 4 1.7 - 2.8 [facility] SODIUM SERPL SCNC 134.0 mmol/L Below low normal 4 135 - 145 [facility] ANION GAP SERPL SCNC 10.0 mmol/L Normal 4 5 - 14 [facility] HCO3 SER SCNC 26.0 mmol/L Normal 4 24 - 32 [facility] GLUCOSE SERPL MCNC 115.0 mg/dL Normal 4 70 - 199 [facility] POTASSIUM SERPL SCNC 3.7 mmol/L Normal 4 3.5 - 5.1 [facility] Glomerular filtration rate/1.73 sq M. predicted 89.0 Normal 4 60 - [facility] BUN SERPL MCNC 12.0 mg/dL Normal 4 9 - 20 [facility] CHLORIDE SERPL SCNC 98.0 mmol/L Normal 12/04/19 2 4 98 - 107 [facility] CREAT SERPL MCNC 1.0 mg/dL Normal 4 0.7 - 1.3 [facility] CALCIUM SERPL MCNC 7.5 mg/dL Below low normal 12/03 4 8.4 - 10.2 [facility] Hgb A1c MFr Bld HPLC 4.4 % Normal 4 - 5.7 [facility] CK SERPL CCNC 33.0 U/L Normal 4 30 - 135 [facility] D DIMER DDU PPP EIA MCNC 819.0 ng/mL DDU Above high normal 4 - 231 [facility] LACTATE SERPL SCNC 1.7 mmol/L Normal 4 0.5 - 2 [facility] CRP SERPL MCNC 6.8 mg/dL Above high normal 12/03/19 2 4 - 0.9 [facility] POTASSIUM SERPL SCNC 3.8 mmol/L Normal 4 3.5 - 5.1 [facility] GLUCOSE SERPL MCNC 131.0 mg/dL Normal 4 70 - 199 [facility] Glomerular filtration rate/1.73 sq M. predicted 89.0 Normal 4 60 - [facility] HCO3 SER SCNC 27.0 mmol/L Normal 4 24 - 32 [facility] CALCIUM SERPL MCNC 8.2 mg/dL Below low normal 12/02 4 8.4 - 10.2 [facility] ANION GAP SERPL SCNC 10.0 mmol/L Normal 4 5 - 14 [facility] CREAT SERPL MCNC 1.0 mg/dL Normal 4 0.7 - 1.3 [facility] CHLORIDE SERPL SCNC 96.0 mmol/L Below low normal 11/20 4 98 - 107 [facility] SODIUM SERPL SCNC 133.0 mmol/L Below low normal 4 135 - 145 [facility] BUN SERPL MCNC 11.0 mg/dL Normal 4 9 - 20 [facility] ESR Bld Qn Photometric 15.0 mm/h Normal 4 0 - 15 [facility] LACTATE SERPL SCNC 2.1 mmol/L Above high normal 11/20 4 0.5 - 2 [facility] LYMPHOCYTES NFR BLD AUTO 6.4 % Below low normal 4 20 - 48 [facility] HGB BLD MCNC 8.0 g/dL Below low normal 4 13.5 - 18 [facility] EOSINOPHIL NFR BLD AUTO 0.6 % Normal 4 0 - 6 [facility] PLATELET NO. BLD AUTO 109.0 K/uL Below low normal 4 150 - 450 [facility] WBC NO. BLD AUTO 7.2 K/uL Normal 4 4 - 10.5 [facility] EOSINOPHIL NO. BLD AUTO 0.0 K/uL Normal 4 0 - 0.5 [facility] IMMATURE GRANULOCYTE, PERCENT 0.4 % Normal 4 0 - 1 [facility] LYMPHOCYTES NO. BLD AUTO 0.5 K/uL Below low normal 4 1 - 3.2 [facility] MONOCYTES NFR BLD AUTO 9.7 % Normal 4 2 - 12 [facility] NUCLEATED RBC 0.0 % Normal 4 0 - 1 [facility] IMMATURE GRANULOCYTE, ABSOLUTE 0.03 k/uL Normal 4 - 0.1 [facility] BASOPHILS NFR BLD AUTO 0.3 % Normal 4 0 - 2 [facility] NEUTROPHILS NFR BLD AUTO 82.6 % Above high normal 4 44 - 74 [facility] HCT VFR BLD AUTO 25.2 % Below low normal 02 4 40 - 54 [facility] MCH RBC QN AUTO 28.2 pg Normal 4 25 - 33 [facility] NEUTROPHILS NO. BLD AUTO 6.0 K/uL Normal 4 1.8 - 7.8 [facility] PMV BLD AUTO 9.7 fL Normal 4 7.4 - 11.4 [facility] MCHC RBC AUTO MCNC 31.7 g/dL Below low normal 12/02 4 32 - 36 [facility] RDW RBC AUTO RTO 18.1 % Above high normal 4 12.1 - 17.7 [facility] BASOPHILS IN BLOOD BY AUTOMATED COUNT 0.0 K/uL Normal 4 0 - 0.2 [facility] RBC NO. BLD AUTO 2.84 M/uL Below low normal 02 4 4.7 - 6 [facility] MONOCYTES NO. BLD AUTO 0.7 K/uL Normal 4 0 - 0.8 [facility] MCV RBC AUTO 88.7 fL Normal 4 78 - 100 [facility] BLOOD BANK CMNT PATIENT-IMP Testing performed at [facility], [address] [place] [id number], Sarah Bonds MD [employer], [facility] [id number] Normal 4 [facility] ABO+RH GP BLD A POSITIVE Normal 4 [facility] BLD GP AB SCN SERPL QL NEGATIVE Normal 4 [facility] IRON SERPL MCNC 23.0 mcg/dL Below low normal 11/25/19 2 4 49 - 181 [facility] TIBC SERPL MCNC 381.0 ug/dL Normal 4 250 - 450 [facility] UIBC SERPL MCNC 358.0 ug/dL Above high normal 02 4 155 - 355 [facility] IRON SATN MFR SERPL 6.0 % Below low normal 08/ 4 20 - 45 [facility] FERRITIN SERPL MCNC 16.0 ng/mL Below low normal 08/0 4 20 - 250 [facility] IMMATURE GRANULOCYTE, ABSOLUTE 0.01 k/uL Normal 4 - 0.1 [facility] RBC NO. BLD AUTO 2.99 M/uL Below low normal 02 4 4.7 - 6 [facility] HCT VFR BLD AUTO 26.9 % Below low normal 02 4 40 - 54 [facility] MCH RBC QN AUTO 28.1 pg Normal 4 25 - 33 [facility] NEUTROPHILS NO. BLD AUTO 3.5 K/uL Normal 4 1.8 - 7.8 [facility] HGB BLD MCNC 8.4 g/dL Below low normal 4 13.5 - 18 [facility] PMV BLD AUTO 9.2 fL Normal 4 7.4 - 11.4 [facility] LYMPHOCYTES NFR BLD AUTO 11.5 % Below low normal 4 20 - 48 [facility] WBC NO. BLD AUTO 4.8 K/uL Normal 4 4 - 10.5 [facility] IMMATURE GRANULOCYTE, PERCENT 0.2 % Normal 4 0 - 1 [facility] MCHC RBC AUTO MCNC 31.2 g/dL Below low normal 11/25 4 32 - 36 [facility] MONOCYTES NO. BLD AUTO 0.6 K/uL Normal 4 0 - 0.8 [facility] EOSINOPHIL NFR BLD AUTO 3.1 % Normal 4 0 - 6 [facility] BASOPHILS IN BLOOD BY AUTOMATED COUNT 0.0 K/uL Normal 4 0 - 0.2 [facility] MCV RBC AUTO 90.0 fL Normal 4 78 - 100 [facility] BASOPHILS NFR BLD AUTO 0.6 % Normal 4 0 - 2 [facility] PLATELET NO. BLD AUTO 132.0 K/uL Below low normal 4 150 - 450 [facility] EOSINOPHIL NO. BLD AUTO 0.2 K/uL Normal 4 0 - 0.5 [facility] RDW RBC AUTO RTO 17.5 % Normal 4 12.1 - 17.7 [facility] NEUTROPHILS NFR BLD AUTO 73.1 % Normal 4 44 - 74 [facility] MONOCYTES NFR BLD AUTO 11.5 % Normal 4 2 - 12 [facility] LYMPHOCYTES NO. BLD AUTO 0.6 K/uL Below low normal 4 1 - 3.2 [facility] GLUCOSE BLDC GLUCOMTR MCNC 97.0 mg/dL Normal 4 70 - 199 [facility] PT TIME PPP 20.0 sec Above high normal 4 10.5 - 13.3 [facility] INR PPP 1.7 Above high normal 4 0.8 - 1.1 [facility] BLOOD BANK CMNT PATIENT-IMP Testing performed at [facility], [address] [place] [phone], Sarah Bonds MD [employer], [facility] [id number] Normal 4 [facility] ABO+RH GP BLD A POSITIVE Normal 4 [facility] BLD GP AB SCN SERPL QL NEGATIVE Normal 4 [facility] EOSINOPHIL NO. BLD AUTO 0.2 K/uL Normal 4 0 - 0.5 [facility] PMV BLD AUTO 8.3 fL Normal 4 7.4 - 11.4 [facility] MONOCYTES NFR BLD AUTO 8.0 % Normal 4 2 - 12 [facility] BASOPHILS NFR BLD AUTO 1.0 % Normal 4 0 - 2 [facility] EOSINOPHIL NFR BLD AUTO 3.9 % Normal 4 0 - 6 [facility] LYMPHOCYTES NFR BLD AUTO 11.3 % Below low normal 4 20 - 48 [facility] LYMPHOCYTES NO. BLD AUTO 0.5 K/uL Below low normal 4 1 - 3.2 [facility] NEUTROPHILS NO. BLD AUTO 3.5 K/uL Normal 4 1.8 - 7.8 [facility] PLATELET NO. BLD AUTO 88.0 K/uL Below low normal 4 150 - 450 [facility] DIFFERENTIAL TYPE AUTOMATED Normal 4 [facility] MONOCYTES NO. BLD AUTO 0.4 K/uL Normal 4 0 - 0.8 [facility] BASOPHILS IN BLOOD BY AUTOMATED COUNT 0.0 K/uL Normal 4 0 - 0.2 [facility] NEUTROPHILS NFR BLD AUTO 75.8 % Above high normal 4 44 - 74 [facility] MCH RBC QN AUTO 29.5 pg Normal 4 25 - 33 [facility] HGB BLD MCNC 8.2 g/dL Below low normal 4 13.5 - 18 [facility] WBC NO. BLD AUTO 4.6 K/uL Normal 4 4 - 10.5 [facility] HCT VFR BLD AUTO 25.9 % Below low normal 02 4 40 - 54 [facility] RBC NO. BLD AUTO 2.79 M/uL Below low normal 02 4 4.7 - 6 [facility] MCV RBC AUTO 92.8 fL Normal 4 78 - 100 [facility] RDW RBC AUTO RTO 24.9 % Above high normal 4 12.1 - 17.7 [facility] MCHC RBC AUTO MCNC 31.8 g/dL Below low normal 11/12 4 32 - 36 [facility] EOSINOPHIL NFR BLD AUTO 3.5 % Normal 4 0 - 6 [facility] LYMPHOCYTES NFR BLD AUTO 12.3 % Below low normal 4 20 - 48 [facility] NEUTROPHILS NO. BLD AUTO 3.6 K/uL Normal 4 1.8 - 7.8 [facility] BASOPHILS IN BLOOD BY AUTOMATED COUNT 0.0 K/uL Normal 4 0 - 0.2 [facility] BASOPHILS NFR BLD AUTO 0.6 % Normal 4 0 - 2 [facility] LYMPHOCYTES NO. BLD AUTO 0.6 K/uL Below low normal 4 1 - 3.2 [facility] NEUTROPHILS NFR BLD AUTO 74.3 % Above high normal 4 44 - 74 [facility] EOSINOPHIL NO. BLD AUTO 0.2 K/uL Normal 4 0 - 0.5 [facility] MONOCYTES NFR BLD AUTO 8.9 % Normal 4 2 - 12 [facility] IMMATURE GRANULOCYTE, ABSOLUTE 0.02 k/uL Normal 4 - 0.1 [facility] IMMATURE GRANULOCYTE, PERCENT 0.4 % Normal 4 0 - 1 [facility] MONOCYTES NO. BLD AUTO 0.4 K/uL Normal 4 0 - 0.8 [facility] HGB BLD MCNC 7.6 g/dL Below low normal 4 13.5 - 18 [facility] PLATELET NO. BLD AUTO 119.0 K/uL Below low normal 4 150 - 450 [facility] HCT VFR BLD AUTO 26.1 % Below low normal 02 4 40 - 54 [facility] PMV BLD AUTO 10.8 fL Normal 4 7.4 - 11.4 [facility] WBC NO. BLD AUTO 4.8 K/uL Normal 4 4 - 10.5 [facility] RBC NO. BLD AUTO 2.74 M/uL Below low normal 02 4 4.7 - 6 [facility] MCH RBC QN AUTO 27.7 pg Normal 4 25 - 33 [facility] RDW RBC AUTO RTO 21.2 % Above high normal 4 12.1 - 17.7 [facility] MCHC RBC AUTO MCNC 29.1 g/dL Below low normal 11/05 4 32 - 36 [facility] MCV RBC AUTO 95.3 fL Normal 4 78 - 100 [facility] ABO+RH GP BLD A POSITIVE Normal 4 [facility] BLOOD BANK CMNT PATIENT-IMP Testing performed at [facility], [address] [place] [phone], Sarah Bonds MD [employer], [facility] [id number] Normal 4 [facility] BLD GP AB SCN SERPL QL NEGATIVE Normal 4 [facility] PLATELET NO. BLD AUTO 183.0 K/uL Normal 4 150 - 450 [facility] HCT VFR BLD AUTO 28.4 % Below low normal 02 4 40 - 54 [facility] EOSINOPHIL NFR BLD AUTO 4.0 % Normal 4 0 - 6 [facility] MONOCYTES NO. BLD AUTO 0.3 K/uL Normal 4 0 - 0.8 [facility] BASOPHILS NFR BLD AUTO 0.8 % Normal 4 0 - 2 [facility] WBC NO. BLD AUTO 6.2 K/uL Normal 4 4 - 10.5 [facility] NEUTROPHILS NO. BLD AUTO 4.9 K/uL Normal 4 1.8 - 7.8 [facility] LYMPHOCYTES NO. BLD AUTO 0.7 K/uL Below low normal 4 1 - 3.2 [facility] MCV RBC AUTO 90.2 fL Normal 4 78 - 100 [facility] RDW RBC AUTO RTO 17.1 % Normal 4 12.1 - 17.7 [facility] BASOPHILS IN BLOOD BY AUTOMATED COUNT 0.1 K/uL Normal 4 0 - 0.2 [facility] IMMATURE GRANULOCYTE, PERCENT 0.2 % Normal 4 0 - 1 [facility] LYMPHOCYTES NFR BLD AUTO 11.2 % Below low normal 4 20 - 48 [facility] EOSINOPHIL NO. BLD AUTO 0.3 K/uL Normal 4 0 - 0.5 [facility] MCHC RBC AUTO MCNC 29.2 g/dL Below low normal 10/28 4 32 - 36 [facility] PMV BLD AUTO 9.3 fL Normal 4 7.4 - 11.4 [facility] RBC NO. BLD AUTO 3.15 M/uL Below low normal 02 4 4.7 - 6 [facility] HGB BLD MCNC 8.3 g/dL Below low normal 4 13.5 - 18 [facility] NEUTROPHILS NFR BLD AUTO 79.0 % Above high normal 4 44 - 74 [facility] MONOCYTES NFR BLD AUTO 4.8 % Normal 4 2 - 12 [facility] MCH RBC QN AUTO 26.3 pg Normal 4 25 - 33 [facility] IMMATURE GRANULOCYTE, ABSOLUTE 0.01 k/uL Normal 4 - 0.1 [facility] ABO+RH GP BLD A POSITIVE Normal 4 [facility] BLOOD BANK CMNT PATIENT-IMP Testing performed at [facility], [address] [place] [id number], Sarah Bonds MD [employer], [facility] [id number] Normal 4 [facility] BLD GP AB SCN SERPL QL NEGATIVE Normal 4 [facility] BLD GP AB SCN SERPL QL NEGATIVE Normal 4 [facility] BLOOD BANK CMNT PATIENT-IMP Testing performed at [facility], [address] [place] [id number], Sarah Bonds MD [employer], [place] [id number] Normal 4 [facility] ABO+RH GP BLD A POSITIVE Normal 4 [facility] NEUTROPHILS NFR BLD AUTO 72.4 % Normal 4 44 - 74 [facility] IMMATURE GRANULOCYTE, ABSOLUTE 0.02 k/uL Normal 4 - 0.1 [facility] IMMATURE GRANULOCYTE, PERCENT 0.3 % Normal 4 0 - 1 [facility] EOSINOPHIL NO. BLD AUTO 0.2 K/uL Normal 4 0 - 0.5 [facility] MONOCYTES NO. BLD AUTO 0.8 K/uL Normal 4 0 - 0.8 [facility] BASOPHILS NFR BLD AUTO 0.4 % Normal 4 0 - 2 [facility] MONOCYTES NFR BLD AUTO 11.2 % Normal 4 2 - 12 [facility] NEUTROPHILS NO. BLD AUTO 4.9 K/uL Normal 4 1.8 - 7.8 [facility] LYMPHOCYTES NFR BLD AUTO 12.2 % Below low normal 4 20 - 48 [facility] LYMPHOCYTES NO. BLD AUTO 0.8 K/uL Below low normal 4 1 - 3.2 [facility] EOSINOPHIL NFR BLD AUTO 3.5 % Normal 4 0 - 6 [facility] BASOPHILS IN BLOOD BY AUTOMATED COUNT 0.0 K/uL Normal 4 0 - 0.2 [facility] PLATELET NO. BLD AUTO 146.0 K/uL Below low normal 4 150 - 450 [facility] MCV RBC AUTO 88.7 fL Normal 4 78 - 100 [facility] RBC NO. BLD AUTO 2.74 M/uL Below low normal 02 4 4.7 - 6 [facility] PMV BLD AUTO 9.8 fL Normal 4 7.4 - 11.4 [facility] WBC NO. BLD AUTO 6.8 K/uL Normal 4 4 - 10.5 [facility] RBC AUTO MCNC 30.0 g/dL Below low normal 10/22 4 32 - 36 [facility]CH RBC QN AUTO 26.6 pg Normal 4 25 - 33 [facility] HGB BLD MCNC 7.3 g/dL Below low normal 4 13.5 - 18 [facility] RDW RBC AUTO RTO 15.7 % Normal 4 12.1 - 17.7 [facility] HCT VFR BLD AUTO 24.3 % Below low normal 02 4 40 - 54 [facility] TRANS NUM UNITS PACKED RBC Refer to TYPE AND SCREEN Order, for Red Cell Product Data / Detail [facility] RBC Refer to TYPE AND SCREEN Order, for Red Cell Product Data / Detail Normal [facility] WBC NO. BLD AUTO 10.1 K/uL Normal 4 4 - 10.5 [facility] BASOPHILS IN BLOOD BY AUTOMATED COUNT 0.0 K/uL Normal 4 0 - 0.2 [facility] EOSINOPHIL NFR BLD AUTO 1.1 % Normal 4 0 - 6 [facility] PMV BLD AUTO 8.1 fL Normal 4 7.4 - 11.4 [facility] DIFFERENTIAL TYPE AUTOD Normal 4 [facility] MONOCYTES NO. BLD AUTO 0.8 K/uL Normal 4 0 - 0.8 [facility] PLATELET NO. BLD AUTO 173.0 K/uL Normal 4 150 - 450 [facility] HCT VFR BLD AUTO 20.2 % Below low normal 02 4 40 - 54 [facility] HGB BLD MCNC 6.5 g/dL Below low normal 4 13.5 - 18 [facility] MONOCYTES NFR BLD AUTO 7.9 % Normal 4 2 - 12 [facility] LYMPHOCYTES NO. BLD AUTO 0.7 K/uL Below low normal 4 1 - 3.2 [facility] RBC NO. BLD AUTO 2.41 M/uL Below low normal 02 4 4.7 - 6 [facility] MCH RBC QN AUTO 26.9 pg Normal 4 25 - 33 [facility] BASOPHILS NFR BLD AUTO 0.3 % Normal 4 0 - 2 [facility] MCHC RBC AUTO MCNC 32.0 g/dL Normal 4 32 - 36 [facility] RDW RBC AUTO RTO 18.0 % Above high normal 4 12.1 - 17.7 [facility] LYMPHOCYTES NFR BLD AUTO 7.4 % Below low normal 4 20 - 48 [facility] NEUTROPHILS NFR BLD AUTO 83.3 % Above high normal 4 44 - 74 [facility] MCV RBC AUTO 83.9 fL Normal 4 78 - 100 [facility] EOSINOPHIL NO. BLD AUTO 0.1 K/uL Normal 4 0 - 0.5 [facility] NEUTROPHILS NO. BLD AUTO 8.4 K/uL Above high normal 4 1.8 - 7.8 [facility] MCV RBC AUTO 83.9 fL Normal 4 78 - 100 [facility] EOSINOPHIL NO. BLD AUTO 0.1 K/uL Normal 4 0 - 0.5 [facility] DIFFERENTIAL TYPE AUTOD Normal 4 [facility] WBC NO. BLD AUTO 10.1 K/uL Normal 4 4 - 10.5 [facility] LYMPHOCYTES NFR BLD AUTO 7.4 % Below low normal 4 20 - 48 [facility] PLATELET NO. BLD AUTO 173.0 K/uL Normal 4 150 - 450 [facility] BASOPHILS NFR BLD AUTO 0.3 % Normal 4 0 - 2 [facility] MONOCYTES NO. BLD AUTO 0.8 K/uL Normal 4 0 - 0.8 [facility] PMV BLD AUTO 8.1 fL Normal 4 7.4 - 11.4 [facility] HCT VFR BLD AUTO 20.2 % Below low normal 02 4 40 - 54 [facility] BASOPHILS IN BLOOD BY AUTOMATED COUNT 0.0 K/uL Normal 4 0 - 0.2 [facility] HGB BLD MCNC 6.5 g/dL Below low normal 4 13.5 - 18 [facility] NEUTROPHILS NO. BLD AUTO 8.4 K/uL Above high normal 4 1.8 - 7.8 [facility] LYMPHOCYTES NO. BLD AUTO 0.7 K/uL Below low normal 4 1 - 3.2 [facility] MONOCYTES NFR BLD AUTO 7.9 % Normal 4 2 - 12 [facility] MCH RBC QN AUTO 26.9 pg Normal 4 25 - 33 [facility] RDW RBC AUTO RTO 18.0 % Above high normal 4 12.1 - 17.7 [facility] MCHC RBC AUTO MCNC 32.0 g/dL Normal 4 32 - 36 [facility] RBC NO. BLD AUTO 2.41 M/uL Below low normal 02 4 4.7 - 6 [facility] EOSINOPHIL NFR BLD AUTO 1.1 % Normal 4 0 - 6 [facility] NEUTROPHILS NFR BLD AUTO 83.3 % Above high normal 4 44 - 74 [facility] BLOOD BANK CMNT PATIENT-IMP Testing performed at [facility], [address] [place] [phone], Sarah Bonds MD [employer] Mechanic, [facility] [id number] Normal [facility] B[facility] GP AB SCN SERPL QL NEGATIVE Normal 4 [facility] ABO+RH GP BLD A POSITIVE Normal [address] [facility] MONOCYTES NO. BLD AUTO 0.8 K/uL Normal 4 0 - 0.8 [facility] NEUTROPHILS NO. BLD AUTO 5.5 K/uL Normal 4 1.8 - 7.8 [facility] PMV BLD AUTO 9.2 fL Normal 4 7.4 - 11.4 [facility] BASOPHILS IN BLOOD BY AUTOMATED COUNT 0.1 K/uL Normal 4 0 - 0.2 [facility] PLATELET NO. BLD AUTO 158.0 K/uL Normal 4 150 - 450 [facility] HGB BLD MCNC 7.4 g/dL Below low normal 4 13.5 - 18 [facility] LYMPHOCYTES NFR BLD AUTO 11.4 % Below low normal 4 20 - 48 [facility] RDW RBC AUTO RTO 16.7 % Normal 4 12.1 - 17.7 [facility] EOSINOPHIL NFR BLD AUTO 4.9 % Normal 4 0 - 6 [facility] MONOCYTES NFR BLD AUTO 10.3 % Normal 4 2 - 12 [facility] MCH RBC QN AUTO 28.1 pg Normal 4 25 - 33 [facility] NEUTROPHILS NFR BLD AUTO 72.2 % Normal 4 44 - 74 [facility] LYMPHOCYTES NO. BLD AUTO 0.9 K/uL Below low normal 4 1 - 3.2 [facility] MCV RBC AUTO 87.3 fL Normal 4 78 - 100 [facility] HCT VFR BLD AUTO 23.0 % Below low normal 02 4 40 - 54 [facility] DIFFERENTIAL TYPE AUTOMATED Normal 4 [facility] RBC NO. BLD AUTO 2.63 M/uL Below low normal 02 4 4.7 - 6 [facility] EOSINOPHIL NO. BLD AUTO 0.4 K/uL Normal 4 0 - 0.5 [facility] BASOPHILS NFR BLD AUTO 1.2 % Normal 4 0 - 2 [facility] MCHC RBC AUTO MCNC 32.2 g/dL Normal 4 32 - 36 [facility] WBC NO. BLD AUTO 7.6 K/uL Normal 4 4 - 10.5 [facility] HCO3 SER SCNC 26.0 mmol/L Normal 4 24 - 32 [facility] ALP SERPL-CCNC 174.0 U/L Above high normal 10/08/19 2 4 34 - 104 [facility] BUN SERPL MCNC 23.0 mg/dL Above high normal 10/08/19 2 4 9 - 20 [facility] ALT SERPL CCNC 19.0 U/L Normal 4 7 - 52 [facility] PROT SERPL MCNC 6.2 g/dL Below low normal 10/08/19 2 4 6.4 - 8.5 [facility] ALBUMIN SERPL BCG MCNC 4.0 g/dL Normal 4 3.5 - 5 [facility] AST SERPL CCNC 33.0 U/L Normal 4 5 - 40 [facility] ANION GAP SERPL SCNC 9.0 mmol/L Normal 4 5 - 14 [facility] CALCIUM SERPL MCNC 9.6 mg/dL Normal 4 8.4 - 10.2 [facility] CHLORIDE SERPL SCNC 100.0 mmol/L Normal 10/08/19 2 4 98 - 107 [facility] SODIUM SERPL SCNC 135.0 mmol/L Normal 4 135 - 145 [facility] POTASSIUM SERPL SCNC 4.8 mmol/L Normal 4 3.5 - 5.1 [facility] BILIRUB SERPL MCNC 1.2 mg/dL Above high normal 09/20 4 0.3 - 1 [facility] GLUCOSE P FAST SERPL MCNC 120.0 mg/dL Above high normal 4 70 - 99 [facility] CREAT SERPL MCNC 1.4 mg/dL Above high normal 4 0.7 - 1.3 [facility] Glomerular filtration rate/1.73 sq M. predicted 59.0 Below low normal 4 60 - [facility] PROT UR MCNC 9.2 mg/dL Normal 4 - 14 [facility] CREAT UR MCNC 75.4 mg/dL Normal 4 [facility] FERRITIN SERPL MCNC 13.0 ng/mL Below low normal 09/20 4 20 - 250 [facility] EOSINOPHIL NFR BLD AUTO 5.9 % Normal 4 0 - 6 [facility] MCH RBC QN AUTO 28.2 pg Normal 4 25 - 33 [facility] PMV BLD AUTO 9.2 fL Normal 4 7.4 - 11.4 [facility] HCT VFR BLD AUTO 21.9 % Below low normal 02 4 40 - 54 [facility] BASOPHILS NFR BLD AUTO 1.2 % Normal 4 0 - 2 [facility] RBC NO. BLD AUTO 2.52 M/uL Below low normal 02 4 4.7 - 6 [facility] BASOPHILS IN BLOOD BY AUTOMATED COUNT 0.1 K/uL Normal 4 0 - 0.2 [facility] LYMPHOCYTES NO. BLD AUTO 0.9 K/uL Below low normal 4 1 - 3.2 [facility] HGB BLD MCNC 7.1 g/dL Below low normal 4 13.5 - 18 [facility] NEUTROPHILS NO. BLD AUTO 5.8 K/uL Normal 4 1.8 - 7.8 [facility] MONOCYTES NO. BLD AUTO 0.6 K/uL Normal 4 0 - 0.8 [facility] EOSINOPHIL NO. BLD AUTO 0.5 K/uL Normal 4 0 - 0.5 [facility] MCV RBC AUTO 87.0 fL Normal 4 78 - 100 [facility] RDW RBC AUTO RTO 16.6 % Normal 4 12.1 - 17.7 [facility] NEUTROPHILS NFR BLD AUTO 73.7 % Normal 4 44 - 74 [facility] MONOCYTES NFR BLD AUTO 8.1 % Normal 4 2 - 12 [facility] PLATELET NO. BLD AUTO 152.0 K/uL Normal 4 150 - 450 [facility] WBC NO. BLD AUTO 7.9 K/uL Normal 4 4 - 10.5 [facility] DIFFERENTIAL TYPE AUTOMATED Normal 4 [facility] LYMPHOCYTES NFR BLD AUTO 11.1 % Below low normal 4 20 - 48 [facility] MCHC RBC AUTO MCNC 32.4 g/dL Normal 4 32 - 36 [facility] TIBC SERPL MCNC 471.0 ug/dL Above high normal 02 4 250 - 450 [facility] IRON SATN MFR SERPL 5.0 % Below low normal 09/20 4 20 - 45 [facility] UIBC SERPL MCNC 449.0 ug/dL Above high normal 02 4 155 - 355 [facility] IRON SERPL MCNC 22.0 mcg/dL Below low normal 10/07/19 2 4 49 - 181 [facility] GLUCOSE SERPL MCNC 133.0 mg/dL Normal 4 70 - 199 [facility] Glomerular filtration rate/1.73 sq M. predicted 55.0 Below low normal 4 60 - [facility] BUN SERPL MCNC 21.0 mg/dL Above high normal 09/18/19 2 4 9 - 20 [facility] PROT SERPL MCNC 6.2 g/dL Below low normal 09/18/19 2 4 6.4 - 8.5 [facility] POTASSIUM SERPL SCNC 4.6 mmol/L Normal 4 3.5 - 5.1 [facility] ANION GAP SERPL SCNC 11.0 mmol/L Normal 4 5 - 14 [facility] SODIUM SERPL SCNC 139.0 mmol/L Normal 4 135 - 145 [facility] ALP SERPL-CCNC 179.0 U/L Above high normal 09/18/19 2 4 34 - 104 [facility] BILIRUB SERPL MCNC 1.6 mg/dL Above high normal 08/21 4 0.3 - 1 [facility] CALCIUM SERPL MCNC 9.2 mg/dL Normal 4 8.4 - 10.2 [facility] ALBUMIN SERPL BCG MCNC 3.9 g/dL Normal 4 3.5 - 5 [facility] ALT SERPL CCNC 19.0 U/L Normal 4 7 - 52 [facility] CREAT SERPL MCNC 1.5 mg/dL Above high normal 4 0.7 - 1.3 [facility] AST SERPL CCNC 46.0 U/L Above high normal 09/18/19 2 4 5 - 40 [facility] HCO3 SER SCNC 25.0 mmol/L Normal 4 24 - 32 [facility] CHLORIDE SERPL SCNC 103.0 mmol/L Normal 09/18/19 2 4 98 - 107 [facility] MCHC RBC AUTO MCNC 33.3 g/dL Normal 4 32 - 36 [facility] LYMPHOCYTES NO. BLD AUTO 0.7 K/uL Below low normal 4 1 - 3.2 [facility] HCT VFR BLD AUTO 25.4 % Below low normal 02 4 40 - 54 [facility] EOSINOPHIL NO. BLD AUTO 0.3 K/uL Normal 4 0 - 0.5 [facility] NEUTROPHILS NFR BLD AUTO 68.9 % Normal 4 44 - 74 [facility] NEUTROPHILS NO. BLD AUTO 3.7 K/uL Normal 4 1.8 - 7.8 [facility] RDW RBC AUTO RTO 17.2 % Normal 4 12.1 - 17.7 [facility] LYMPHOCYTES NFR BLD AUTO 13.4 % Below low normal 4 20 - 48 [facility] PLATELET NO. BLD AUTO 126.0 K/uL Below low normal 4 150 - 450 [facility] DIFFERENTIAL TYPE AUTOMATED Normal 4 [facility] MCV RBC AUTO 92.8 fL Normal 4 78 - 100 [facility] BASOPHILS IN BLOOD BY AUTOMATED COUNT 0.1 K/uL Normal 4 0 - 0.2 [facility] MCH RBC QN AUTO 30.9 pg Normal 4 25 - 33 [facility] EOSINOPHIL NFR BLD AUTO 5.7 % Normal 4 0 - 6 [facility] WBC NO. BLD AUTO 5.4 K/uL Normal 4 4 - 10.5 [facility] BASOPHILS NFR BLD AUTO 1.4 % Normal 4 0 - 2 [facility] RBC NO. BLD AUTO 2.73 M/uL Below low normal 02 4 4.7 - 6 [facility] PMV BLD AUTO 9.2 fL Normal 4 7.4 - 11.4 [facility] MONOCYTES NFR BLD AUTO 10.6 % Normal 4 2 - 12 [facility] MONOCYTES NO. BLD AUTO 0.6 K/uL Normal 4 0 - 0.8 [facility] HGB BLD MCNC 8.4 g/dL Below low normal 4 13.5 - 18 [facility] HCT VFR BLD AUTO 22.6 % Below low normal 02 4 40 - 54 [facility] HGB BLD MCNC 7.6 g/dL Below low normal 4 13.5 - 18 [facility] GLUCOSE BLDC GLUCOMTR MCNC 151.0 mg/dL Normal 4 70 - 199 [facility] GLUCOSE BLDC GLUCOMTR MCNC 114.0 mg/dL Normal 4 70 - 199 [facility] HCT VFR BLD AUTO 20.4 % Below low normal 02 4 40 - 54 [facility] HGB BLD MCNC 6.8 g/dL Below low normal 4 13.5 - 18 [facility] ANION GAP SERPL SCNC 9.0 mmol/L Normal 4 5 - 14 [facility] BUN SERPL MCNC 30.0 mg/dL Above high normal 09/14/19 2 4 9 - 20 [facility] GLUCOSE SERPL MCNC 104.0 mg/dL Normal 4 70 - 199 [facility] CHLORIDE SERPL SCNC 98.0 mmol/L Normal 09/14/19 2 4 98 - 107 [facility] CREAT SERPL MCNC 1.7 mg/dL Above high normal 4 0.7 - 1.3 [facility] HCO3 SER SCNC 26.0 mmol/L Normal 4 24 - 32 [facility] Glomerular filtration rate/1.73 sq M. predicted 47.0 Below low normal 4 60 - [facility] SODIUM SERPL SCNC 133.0 mmol/L Below low normal 4 135 - 145 [facility] POTASSIUM SERPL SCNC 4.4 mmol/L Normal 4 3.5 - 5.1 [facility] CALCIUM SERPL MCNC 8.8 mg/dL Normal 4 8.4 - 10.2 [facility] TRANS NUM UNITS PACKED RBC Refer to TYPE AND SCREEN Order, for Red Cell Product Data / Detail Normal 4 [facility] RDW RBC AUTO RTO 16.2 % Normal 4 12.1 - 17.7 [facility] HCT VFR BLD AUTO 19.5 % Below low normal 02 4 40 - 54 [facility] PMV BLD AUTO 9.4 fL Normal 4 7.4 - 11.4 [facility] WBC NO. BLD AUTO 4.5 K/uL Normal 4 4 - 10.5 [facility] HGB BLD MCNC 6.6 g/dL Below low normal 4 13.5 - 18 [facility] MCH RBC QN AUTO 30.4 pg Normal 4 25 - 33 [facility] PLATELET NO. BLD AUTO 103.0 K/uL Below low normal 4 150 - 450 [facility] MCV RBC AUTO 90.6 fL Normal 4 78 - 100 [facility] MCHC RBC AUTO MCNC 33.6 g/dL Normal 4 32 - 36 [facility] RBC NO. BLD AUTO 2.16 M/uL Below low normal 02 4 4.7 - 6 [facility] GLUCOSE BLDC GLUCOMTR MCNC 133.0 mg/dL Normal 4 70 - 199 [facility] TRANS NUM UNITS PACKED RBC Refer to TYPE AND SCREEN Order, for Red Cell Product Data / Detail Normal 4 [facility] NEUTROPHILS NFR BLD AUTO 67.3 % Normal 4 44 - 74 [facility] BASOPHILS IN BLOOD BY AUTOMATED COUNT 0.0 K/uL Normal 4 0 - 0.2 [facility] EOSINOPHIL NFR BLD AUTO 3.8 % Normal 4 0 - 6 [facility] LYMPHOCYTES NO. BLD AUTO 0.5 K/uL Below low normal 4 1 - 3.2 [facility] MCH RBC QN AUTO 30.3 pg Normal 4 25 - 33 [facility] HCT VFR BLD AUTO 18.8 % Below low normal 02 4 40 - 54 [facility] BASOPHILS NFR BLD AUTO 1.2 % Normal 4 0 - 2 [facility] MONOCYTES NFR BLD AUTO 13.7 % Above high normal 4 2 - 12 [facility] PLATELET NO. BLD AUTO 106.0 K/uL Below low normal 4 150 - 450 [facility] PMV BLD AUTO 9.4 fL Normal 4 7.4 - 11.4 [facility] RDW RBC AUTO RTO 16.4 % Normal 4 12.1 - 17.7 [facility] HGB BLD MCNC 6.2 g/dL Below low normal 4 13.5 - 18 [facility] RBC NO. BLD AUTO 2.05 M/uL Below low normal 02 4 4.7 - 6 [facility] MONOCYTES NO. BLD AUTO 0.5 K/uL Normal 4 0 - 0.8 [facility] LYMPHOCYTES NFR BLD AUTO 14.0 % Below low normal 4 20 - 48 [facility] DIFFERENTIAL TYPE AUTOMATED Normal 4 [facility] MCHC RBC AUTO MCNC 33.0 g/dL Normal 4 32 - 36 [facility] WBC NO. BLD AUTO 3.9 K/uL Below low normal 02 4 4 - 10.5 [facility] NEUTROPHILS NO. BLD AUTO 2.6 K/uL Normal 4 1.8 - 7.8 [facility] EOSINOPHIL NO. BLD AUTO 0.2 K/uL Normal 4 0 - 0.5 [facility] MCV RBC AUTO 92.0 fL Normal 4 78 - 100 [facility] AMYLASE SERPL CCNC 22.0 U/L Below low normal 09/12 4 29 - 103 [facility] BILIRUB DIRECT SERPL MCNC 0.3 mg/dL Above high normal 4 0 - 0.2 [facility] BILIRUB SERPL MCNC 1.4 mg/dL Above high normal 08/21 4 0.3 - 1 [facility] LIPASE SERPL CCNC 63.0 U/L Normal 4 11 - 82 [facility] PT TIME PPP 20.6 sec Above high normal 4 10.5 - 13.3 [facility] INR PPP 1.7 Above high normal 4 0.8 - 1.1 [facility] ALT SERPL CCNC 19.0 U/L Normal 4 7 - 52 [facility] ALP SERPL-CCNC 175.0 U/L Above high normal 09/13/19 2 4 34 - 104 [facility] AST SERPL CCNC 51.0 U/L Above high normal 09/13/19 2 4 5 - 40 [facility] LDH SERPL L TO P CCNC 223.0 U/L Above high normal 4 125 - 220 [facility] ABO+RH GP BLD A POSITIVE Normal 4 [facility] BLD GP AB SCN SERPL QL NEGATIVE Normal 4 [facility] BLOOD BANK CMNT PATIENT-IMP Testing performed at [facility], [address] [place] [id number], Sarah Bonds MD [employer], [facility] [id number] Normal 4 [facility] APTT TIME PPP 38.0 sec Above high normal 4 25 - 37 [facility] CALCIUM SERPL MCNC 8.9 mg/dL Normal 4 8.4 - 10.2 [facility] POTASSIUM SERPL SCNC 5.3 mmol/L Above high normal 4 3.5 - 5.1 [facility] SODIUM SERPL SCNC 129.0 mmol/L Below low normal 4 135 - 145 [facility] BUN SERPL MCNC 31.0 mg/dL Above high normal 09/13/19 2 4 9 - 20 [facility] CHLORIDE SERPL SCNC 96.0 mmol/L Below low normal 08/21 4 98 - 107 [facility] HCO3 SER SCNC 23.0 mmol/L Below low normal 4 24 - 32 [facility] GLUCOSE SERPL MCNC 115.0 mg/dL Normal 4 70 - 199 [facility] ANION GAP SERPL SCNC 10.0 mmol/L Normal 4 5 - 14 [facility] CREAT SERPL MCNC 1.8 mg/dL Above high normal 4 0.7 - 1.3 [facility] Glomerular filtration rate/1.73 sq M. predicted 44.0 Below low normal 4 60 - [facility] FERRITIN SERPL MCNC 22.0 ng/mL Normal 09/13/19 2 4 20 - 250 [facility] TIBC SERPL MCNC 440.0 ug/dL Normal 4 250 - 450 [facility] UIBC SERPL MCNC 374.0 ug/dL Above high normal 02 4 155 - 355 [facility] IRON SATN MFR SERPL 15.0 % Below low normal 08/21 4 20 - 45 [facility] IRON SERPL MCNC 66.0 mcg/dL Normal 4 49 - 181 [facility] MCH RBC QN AUTO 29.7 pg Normal 4 25 - 33 [facility] RDW RBC AUTO RTO 15.6 % Normal 4 12.1 - 17.7 [facility] BASOPHILS NFR BLD AUTO 1.1 % Normal 4 0 - 2 [facility] PMV BLD AUTO 11.0 fL Normal 4 7.4 - 11.4 [facility] LYMPHOCYTES NFR BLD AUTO 8.9 % Below low normal 4 20 - 48 [facility] EOSINOPHIL NO. BLD AUTO 0.2 K/uL Normal 4 0 - 0.5 [facility] MCV RBC AUTO 95.3 fL Normal 4 78 - 100 [facility] BASOPHILS IN BLOOD BY AUTOMATED COUNT 0.1 K/uL Normal 4 0 - 0.2 [facility] EOSINOPHIL NFR BLD AUTO 4.0 % Normal 4 0 - 6 [facility] MONOCYTES NO. BLD AUTO 0.6 K/uL Normal 4 0 - 0.8 [facility] RBC NO. BLD AUTO 2.12 M/uL Below low normal 02 4 4.7 - 6 [facility] MONOCYTES NFR BLD AUTO 10.7 % Normal 4 2 - 12 [facility] HCT VFR BLD AUTO 20.2 % Below low normal 02 4 40 - 54 [facility] PLATELET NO. BLD AUTO 127.0 K/uL Below low normal 4 150 - 450 [facility] IMMATURE GRANULOCYTE, PERCENT 0.4 % Normal 4 0 - 1 [facility] MCHC RBC AUTO MCNC 31.2 g/dL Below low normal 09/12 4 32 - 36 [facility] LYMPHOCYTES NO. BLD AUTO 0.5 K/uL Below low normal 4 1 - 3.2 [facility] NEUTROPHILS NFR BLD AUTO 74.9 % Above high normal 4 44 - 74 [facility] WBC NO. BLD AUTO 5.5 K/uL Normal 4 4 - 10.5 [facility] NEUTROPHILS NO. BLD AUTO 4.2 K/uL Normal 4 1.8 - 7.8 [facility] HGB BLD MCNC 6.3 g/dL Below low normal 4 13.5 - 18 [facility] IMMATURE GRANULOCYTE, ABSOLUTE 0.02 k/uL Normal 4 - 0.1 [facility] MAGNESIUM SERPL MCNC 1.3 mg/dL Below low normal 4 1.7 - 2.8 [facility] LYMPHOCYTES NFR BLD AUTO 13.9 % Below low normal 4 20 - 48 [facility] BASOPHILS NFR BLD AUTO 1.7 % Normal 4 0 - 2 [facility] MCHC RBC AUTO MCNC 33.2 g/dL Normal 4 32 - 36 [facility] RDW RBC AUTO RTO 16.5 % Normal 4 12.1 - 17.7 [facility] PMV BLD AUTO 9.2 fL Normal 4 7.4 - 11.4 [facility] MONOCYTES NO. BLD AUTO 0.6 K/uL Normal 4 0 - 0.8 [facility] HCT VFR BLD AUTO 28.9 % Below low normal 02 4 40 - 54 [facility] PLATELET NO. BLD AUTO 152.0 K/uL Normal 4 150 - 450 [facility] BASOPHILS IN BLOOD BY AUTOMATED COUNT 0.1 K/uL Normal 4 0 - 0.2 [facility] MCH RBC QN AUTO 31.2 pg Normal 4 25 - 33 [facility] HGB BLD MCNC 9.6 g/dL Below low normal 4 13.5 - 18 [facility] EOSINOPHIL NFR BLD AUTO 4.6 % Normal 4 0 - 6 [facility] MCV RBC AUTO 93.8 fL Normal 4 78 - 100 [facility] NEUTROPHILS NFR BLD AUTO 69.2 % Normal 4 44 - 74 [facility] MONOCYTES NFR BLD AUTO 10.6 % Normal 4 2 - 12 [facility] WBC NO. BLD AUTO 5.9 K/uL Normal 4 4 - 10.5 [facility] DIFFERENTIAL TYPE AUTOMATED Normal 4 [facility] RBC NO. BLD AUTO 3.08 M/uL Below low normal 02 4 4.7 - 6 [facility] LYMPHOCYTES NO. BLD AUTO 0.8 K/uL Below low normal 4 1 - 3.2 [facility] EOSINOPHIL NO. BLD AUTO 0.3 K/uL Normal 4 0 - 0.5 [facility] NEUTROPHILS NO. BLD AUTO 4.1 K/uL Normal 4 1.8 - 7.8 [facility] BLD GP AB SCN SERPL QL NEGATIVE Normal 4 [facility] BLOOD BANK CMNT PATIENT-IMP Testing performed at [facility], [address] [place] [id number], Sarah Bonds MD [employer], [facility] [id number] Normal 4 [facility] ABO+RH GP BLD A POSITIVE Normal 4 [facility] GLUCOSE BLDC GLUCOMTR MCNC 117.0 mg/dL Normal 4 70 - 199 [facility] PHOSPHATE SERPL MCNC 3.8 mg/dL Normal 4 2.5 - 4.5 [facility] INR PPP 1.1 Normal 4 0.8 - 1.1 [facility] PT TIME PPP 13.4 sec Above high normal 4 10.5 - 13.3 [facility] PMV BLD AUTO 8.7 fL Normal 4 7.4 - 11.4 [facility] PLATELET NO. BLD AUTO 68.0 K/uL Below low normal 4 150 - 450 [facility] NEUTROPHILS NFR BLD AUTO 59.4 % Normal 4 44 - 74 [facility] MONOCYTES NO. BLD AUTO 0.5 K/uL Normal 4 0 - 0.8 [facility] BASOPHILS IN BLOOD BY AUTOMATED COUNT 0.0 K/uL Normal 4 0 - 0.2 [facility] RBC NO. BLD AUTO 2.5 M/uL Below low normal 02 4 4.7 - 6 [facility] LYMPHOCYTES NO. BLD AUTO 0.5 K/uL Below low normal 4 1 - 3.2 [facility] HCT VFR BLD AUTO 23.5 % Below low normal 02 4 40 - 54 [facility] WBC NO. BLD AUTO 3.0 K/uL Below low normal 02 4 4 - 10.5 [facility] RDW RBC AUTO RTO 18.8 % Above high normal 4 12.1 - 17.7 [facility] MCV RBC AUTO 93.9 fL Normal 4 78 - 100 [facility] LYMPHOCYTES NFR BLD AUTO 17.3 % Below low normal 4 20 - 48 [facility] BASOPHILS NFR BLD AUTO 1.3 % Normal 4 0 - 2 [facility] DIFFERENTIAL TYPE AUTOMATED Normal 4 [facility] EOSINOPHIL NO. BLD AUTO 0.2 K/uL Normal 4 0 - 0.5 [facility] MCH RBC QN AUTO 31.2 pg Normal 4 25 - 33 [facility] MCHC RBC AUTO MCNC 33.2 g/dL Normal 4 32 - 36 [facility] HGB BLD [facility]NC 7.8 g/dL Below low normal 4 13.5 - 18 [facility] MONOCYTES NFR BLD AUTO 16.1 % Above high normal 4 2 - 12 [facility] EOSINOPHIL NFR BLD AUTO 5.9 % Normal 4 0 - 6 [facility] NEUTROPHILS NO. BLD AUTO 1.8 K/uL Normal 4 1.8 - 7.8 [facility] BUN SERPL [facility] 17.0 mg/dL Normal 4 9 - 20 [facility] ALP SERPL-CCNC 172.0 U/L Above high normal 08/27/19 2 4 34 - 104 [facility] CREAT SERPL MCNC 1.4 mg/dL Above high normal 4 0.7 - 1.3 [facility] ALT SERPL [facility] 18.0 U/L Normal 4 7 - 52 [facility] SODIUM SERPL SCNC 139.0 mmol/L Normal 4 135 - 145 [facility] POTASSIUM SERPL SCNC 4.3 mmol/L Normal 4 3.5 - 5.1 [facility] GLUCOSE SERPL MCNC 105.0 mg/dL Normal 4 70 - 199 [facility] AST SERPL [facility] 51.0 U/L Above high normal 08/27/19 2 4 5 - 40 [facility] HCO3 SER SCNC 24.0 mmol/L Normal 4 24 - 32 [facility] CALCIUM SERPL MCNC 8.8 mg/dL Normal 4 8.4 - 10.2 [facility] BILIRUB SERPL MCNC 1.3 mg/dL Above high normal 05/ 4 0.3 - 1 [facility] ANION GAP SERPL SCNC 10.0 mmol/L Normal 4 5 - 14 [facility] Glomerular filtration rate/1.73 sq M. predicted 59.0 Below low normal 4 60 - [facility] CHLORIDE SERPL [facility] 105.0 mmol/L Normal 08/27/19 2 4 98 - 107 [facility] PROT SERPL [facility] 5.9 g/dL Below low normal 08/27/19 2 4 6.4 - 8.5 [facility] ALBUMIN SERPL BCG MCNC 3.6 g/dL Normal 4 3.5 - 5 [facility] MAGNESIUM SERPL [facility] 2.0 mg/dL Normal 4 1.7 - 2.8 [facility] GLUCOSE BLDC GLUCOMTR MCNC 136.0 mg/dL Normal 4 70 - 199 [facility] GLUCOSE BLDC GLUCOMTR MCNC 155.0 mg/dL Normal 4 70 - 199 [facility] GLUCOSE BLDC GLUCOMTR MCNC 91.0 mg/dL Normal 4 70 - 199 [facility] GLUCOSE BLDC GLUCOMTR MCNC 94.0 mg/dL Normal 4 70 - 199 [facility] PT TIME PPP 13.4 sec Above high normal 4 10.5 - 13.3 [facility] INR PPP 1.1 Normal 4 0.8 - 1.1 [facility] MCHC RBC AUTO MCNC 33.2 g/dL Normal 4 32 - 36 [facility] BASOPHILS NFR BLD AUTO 1.4 % Normal 4 0 - 2 [facility] RDW RBC AUTO RTO 19.3 % Above high normal 4 12.1 - 17.7 [facility] MONOCYTES NFR BLD AUTO 12.9 % Above high normal 4 2 - 12 [facility] PMV BLD AUTO 10.3 fL Normal 4 7.4 - 11.4 [facility] EOSINOPHIL NO. BLD AUTO 0.2 K/uL Normal 4 0 - 0.5 [facility] PLATELET NO. BLD AUTO 82.0 K/uL Below low normal 4 150 - 450 [facility] RBC NO. BLD AUTO 2.8 M/uL Below low normal 02 4 4.7 - 6 [facility] WBC NO. BLD AUTO 4.4 K/uL Normal 4 4 - 10.5 [facility] MCH RBC QN AUTO 31.2 pg Normal 4 25 - 33 [facility] LYMPHOCYTES NFR BLD AUTO 19.1 % Below low normal 4 20 - 48 [facility] EOSINOPHIL NFR BLD AUTO 4.4 % Normal 4 0 - 6 [facility] HGB BLD MCNC 8.7 g/dL Below low normal 4 13.5 - 18 [facility] BASOPHILS IN BLOOD BY AUTOMATED COUNT 0.1 K/uL Normal 4 0 - 0.2 [facility] MCV RBC AUTO 94.2 fL Normal 4 78 - 100 [facility] HCT VFR BLD AUTO 26.4 % Below low normal 02 4 40 - 54 [facility] NEUTROPHILS NO. BLD AUTO 2.7 K/uL Normal 4 1.8 - 7.8 [facility] DIFFERENTIAL TYPE AUTOMATED Normal 4 [facility] MONOCYTES NO. BLD AUTO 0.6 K/uL Normal 4 0 - 0.8 [facility] LYMPHOCYTES NO. BLD AUTO 0.8 K/uL Below low normal 4 1 - 3.2 [facility] NEUTROPHILS NFR BLD AUTO 62.2 % Normal 4 44 - 74 [facility] PHOSPHATE SERPL MCNC 3.8 mg/dL Normal 4 2.5 - 4.5 [facility] SODIUM SERPL SCNC 139.0 mmol/L Normal 4 135 - 145 [facility] ALP SERPL-CCNC 180.0 U/L Above high normal 08/26/19 2 4 34 - 104 [facility] GLUCOSE SERPL MCNC 89.0 mg/dL Normal 4 70 - 199 [facility] HCO3 SER SCNC 26.0 mmol/L Normal 4 24 - 32 [facility] BILIRUB SERPL MCNC 1.6 mg/dL Above high normal / 4 0.3 - 1 [facility] PROT SERPL MCNC 6.3 g/dL Below low normal 08/26/19 2 4 6.4 - 8.5 [facility] ANION GAP SERPL SCNC 10.0 mmol/L Normal 4 5 - 14 [facility] ALT SERPL CCNC 18.0 U/L Normal 4 7 - 52 [facility] Glomerular filtration rate/1.73 sq M. predicted 71.0 Normal 4 60 - [facility] POTASSIUM SERPL SCNC 4.5 mmol/L Normal 4 3.5 - 5.1 [facility] CREAT SERPL MCNC 1.2 mg/dL Normal 4 0.7 - 1.3 [facility] ALBUMIN SERPL BCG MCNC 3.7 g/dL Normal 4 3.5 - 5 [facility] CALCIUM SERPL MCNC 9.2 mg/dL Normal 4 8.4 - 10.2 [facility] AST SERPL CCNC 60.0 U/L Above high normal 08/26/19 2 4 5 - 40 [facility] CHLORIDE SERPL SCNC 103.0 mmol/L Normal 08/26/19 2 4 98 - 107 [facility] BUN SERPL MCNC 18.0 mg/dL Normal 4 9 - 20 [facility] MAGNESIUM SERPL MCNC 1.5 mg/dL Below low normal 4 1.7 - 2.8 [facility] HCT VFR BLD AUTO 24.0 % Below low normal 02 4 40 - 54 [facility] HGB BLD MCNC 7.9 g/dL Below low normal 4 13.5 - 18 [facility] GLUCOSE BLDC GLUCOMTR MCNC 78.0 mg/dL Normal 4 70 - 199 [facility] HCT VFR BLD AUTO 25.6 % Below low normal 02 4 40 - 54 [facility] HGB BLD MCNC 8.4 g/dL Below low normal 4 13.5 - 18 [facility] GLUCOSE BLDC GLUCOMTR MCNC 105.0 mg/dL Normal 4 70 - 199 [facility] GLUCOSE BLDC GLUCOMTR MCNC 81.0 mg/dL Normal 4 70 - 199 [facility] GLUCOSE BLDC GLUCOMTR MCNC 98.0 mg/dL Normal 4 70 - 199 [facility] HCT VFR BLD AUTO 23.0 % Below low normal 02 4 40 - 54 [facility] HGB BLD MCNC 7.6 g/dL Below low normal 4 13.5 - 18 [facility] AMMONIA PLAS SCNC 67.0 mcmol/L Above high normal 08/24 4 15 - 45 [facility] HCT VFR BLD AUTO 23.3 % Below low normal 02 4 40 - 54 [facility] MCHC RBC AUTO MCNC 33.5 g/dL Normal 4 32 - 36 [facility] RDW RBC AUTO RTO 19.5 % Above high normal 4 12.1 - 17.7 [facility] PLATELET NO. BLD AUTO 59.0 K/uL Below low normal 4 150 - 450 [facility] NEUTROPHILS NFR BLD AUTO 55.7 % Normal 4 44 - 74 [facility] DIFFERENTIAL TYPE AUTOMATED Normal 4 [facility] EOSINOPHIL NO. BLD AUTO 0.2 K/uL Normal 4 0 - 0.5 [facility] HGB BLD MCNC 7.8 g/dL Below low normal 4 13.5 - 18 [facility] MCH RBC QN AUTO 31.1 pg Normal 4 25 - 33 [facility] NEUTROPHILS NO. BLD AUTO 1.5 K/uL Below low normal 4 1.8 - 7.8 [facility] LYMPHOCYTES NO. BLD AUTO 0.6 K/uL Below low normal 4 1 - 3.2 [facility] PMV BLD AUTO 9.1 fL Normal 4 7.4 - 11.4 [facility] BASOPHILS NFR BLD AUTO 2.2 % Above high normal 4 0 - 2 [facility] LYMPHOCYTES NFR BLD AUTO 22.6 % Normal 4 20 - 48 [facility] RBC NO. BLD AUTO 2.5 M/uL Below low normal 02 4 4.7 - 6 [facility] EOSINOPHIL NFR BLD AUTO 5.4 % Normal 4 0 - 6 [facility] MONOCYTES NFR BLD AUTO 14.1 % Above high normal 4 2 - 12 [facility] MONOCYTES NO. BLD AUTO 0.4 K/uL Normal 4 0 - 0.8 [facility] MCV RBC AUTO 92.9 fL Normal 4 78 - 100 [facility] WBC NO. BLD AUTO 2.8 K/uL Below low normal 02 4 4 - 10.5 [facility] BASOPHILS IN BLOOD BY AUTOMATED COUNT 0.1 K/uL Normal 4 0 - 0.2 [facility] MAGNESIUM SERPL MCNC 1.9 mg/dL Normal 4 1.7 - 2.8 [facility] APTT TIME PPP 32.0 sec Normal 4 25 - 37 [facility] PT TIME PPP 13.2 sec Normal 4 10.5 - 13.3 [facility] INR PPP 1.1 Normal 4 0.8 - 1.1 [facility] PHOSPHATE SERPL MCNC 3.9 mg/dL Normal 4 2.5 - 4.5 [facility] BILIRUB SERPL MCNC 1.3 mg/dL Above high normal 4 0.3 - 1 [facility] GLUCOSE SERPL MCNC 105.0 mg/dL Normal 4 70 - 199 [facility] Glomerular filtration rate/1.73 sq M. predicted 65.0 Normal 4 60 - [facility] BUN SERPL MCNC 25.0 mg/dL Above high normal 08/25/19 2 4 9 - 20 [facility] AST SERPL CCNC 56.0 U/L Above high normal 08/25/19 2 4 5 - 40 [facility] POTASSIUM SERPL SCNC 3.8 mmol/L Normal 4 3.5 - 5.1 [facility] CALCIUM SERPL MCNC 8.6 mg/dL Normal 4 8.4 - 10.2 [facility] ANION GAP SERPL SCNC 10.0 mmol/L Normal 4 5 - 14 [facility] ALP SERPL-CCNC 171.0 U/L Above high normal 08/25/19 2 4 34 - 104 [facility] CHLORIDE SERPL SCNC 104.0 mmol/L Normal 08/25/19 2 4 98 - 107 [facility] ALT SERPL CCNC 14.0 U/L Normal 4 7 - 52 [facility] SODIUM SERPL SCNC 137.0 mmol/L Normal 4 135 - 145 [facility] CREAT SERPL MCNC 1.3 mg/dL Normal 4 0.7 - 1.3 [facility] ALBUMIN SERPL BCG MCNC 3.5 g/dL Normal 4 3.5 - 5 [facility] PROT SERPL MCNC 5.8 g/dL Below low normal 08/25/19 2 4 6.4 - 8.5 [facility] HCO3 SER SCNC 23.0 mmol/L Below low normal 4 24 - 32 [facility] HCT VFR BLD AUTO 24.1 % Below low normal 02 4 40 - 54 [facility] HGB BLD MCNC 8.0 g/dL Below low normal 4 13.5 - 18 [facility] GLUCOSE BLDC GLUCOMTR MCNC 87.0 mg/dL Normal 4 70 - 199 [facility] GLUCOSE BLDC GLUCOMTR MCNC 105.0 mg/dL Normal 4 70 - 199 [facility] HCT VFR BLD AUTO 23.3 % Below low normal 02 4 40 - 54 [facility] HGB BLD MCNC 7.8 g/dL Below low normal 4 13.5 - 18 [facility] TRANS NUM UNITS PACKED RBC Refer to TYPE AND SCREEN Order, for Red Cell Product Data / Detail Normal 4 [facility] HCT VFR BLD AUTO 20.1 % Below low normal 02 4 40 - 54 [facility] HGB BLD MCNC 6.7 g/dL Below low normal 4 13.5 - 18 [facility] GLUCOSE BLDC GLUCOMTR MCNC 114.0 mg/dL Normal 4 70 - 199 [facility] ALT SERPL CCNC 11.0 U/L Normal 4 7 - 52 [facility] PROT SERPL MCNC 5.3 g/dL Below low normal 08/24/19 2 4 6.4 - 8.5 [facility] ALBUMIN SERPL BCG MCNC 3.3 g/dL Below low normal 4 3.5 - 5 [facility] BILIRUB SERPL MCNC 1.3 mg/dL Above high normal 4 0.3 - 1 [facility] AST SERPL CCNC 49.0 U/L Above high normal 08/24/19 2 4 5 - 40 [facility] ALP SERPL-CCNC 145.0 U/L Above high normal 08/24/19 2 4 34 - 104 [facility] Glomerular filtration rate/1.73 sq M. predicted 65.0 Normal 4 60 - [facility] SODIUM SERPL SCNC 139.0 mmol/L Normal 4 135 - 145 [facility] CHLORIDE SERPL SCNC 107.0 mmol/L Normal 08/24/19 2 4 98 - 107 [facility] HCO3 SER SCNC 24.0 mmol/L Normal 4 24 - 32 [facility] POTASSIUM SERPL SCNC 3.9 mmol/L Normal 4 3.5 - 5.1 [facility] ANION GAP SERPL SCNC 8.0 mmol/L Normal 4 5 - 14 [facility] BUN SERPL MCNC 39.0 mg/dL Above high normal 08/24/19 2 4 9 - 20 [facility] GLUCOSE SERPL MCNC 109.0 mg/dL Normal 4 70 - 199 [facility] CREAT SERPL MCNC 1.3 mg/dL Normal 4 0.7 - 1.3 [facility] CALCIUM SERPL MCNC 8.2 mg/dL Below low normal 08/23 4 8.4 - 10.2 [facility] PHOSPHATE SERPL MCNC 3.4 mg/dL Normal 4 2.5 - 4.5 [facility] MAGNESIUM SERPL MCNC 1.6 mg/dL Below low normal 4 1.7 - 2.8 [facility] RDW RBC AUTO RTO 19.5 % Above high normal 4 12.1 - 17.7 [facility] NEUTROPHILS NO. BLD AUTO 1.5 K/uL Below low normal 4 1.8 - 7.8 [facility] MCH RBC QN AUTO 31.2 pg Normal 4 25 - 33 [facility] HCT VFR BLD AUTO 19.8 % Below low normal 02 4 40 - 54 [facility] EOSINOPHIL NFR BLD AUTO 3.6 % Normal 4 0 - 6 [facility] MONOCYTES NO. BLD AUTO 0.3 K/uL Normal 4 0 - 0.8 [facility] HGB BLD MCNC 6.5 g/dL Below low normal 4 13.5 - 18 [facility] PMV BLD AUTO 9.6 fL Normal 4 7.4 - 11.4 [facility] BASOPHILS NFR BLD AUTO 1.2 % Normal 4 0 - 2 [facility] DIFFERENTIAL TYPE AUTOMATED Normal 4 [facility] RBC NO. BLD AUTO 2.08 M/uL Below low normal 02 4 4.7 - 6 [facility] NEUTROPHILS NFR BLD AUTO 59.6 % Normal 4 44 - 74 [facility] LYMPHOCYTES NFR BLD AUTO 23.2 % Normal 4 20 - 48 [facility] MCHC RBC AUTO MCNC 32.8 g/dL Normal 4 32 - 36 [facility] MCV RBC AUTO 95.3 fL Normal 4 78 - 100 [facility] MONOCYTES NFR BLD AUTO 12.4 % Above high normal 4 2 - 12 [facility] PLATELET NO. BLD AUTO 54.0 K/uL Below low normal 4 150 - 450 [facility] LYMPHOCYTES NO. BLD AUTO 0.6 K/uL Below low normal 4 1 - 3.2 [facility] WBC NO. BLD AUTO 2.5 K/uL Below low normal 02 4 4 - 10.5 [facility] BASOPHILS IN BLOOD BY AUTOMATED COUNT 0.0 K/uL Normal 4 0 - 0.2 [facility] EOSINOPHIL NO. BLD AUTO 0.1 K/uL Normal 4 0 - 0.5 [facility] HGB BLD MCNC 7.5 g/dL Below low normal 4 13.5 - 18 [facility] HCT VFR BLD AUTO 22.9 % Below low normal 02 4 40 - 54 [facility] GLUCOSE BLDC GLUCOMTR MCNC 149.0 mg/dL Normal 4 70 - 199 [facility] Opiates Ur Ql Scn NEGATIVE Normal 4 - [facility] Barbiturates Ur Ql Scn NEGATIVE Normal 4 - [facility] Oxycodone Ur Ql Scn NEGATIVE Normal 08/23/19 2 4 - [facility] BZE Ur Ql Scn NEGATIVE Normal 4 - [facility] Cannabinoids Ur Ql Scn NEGATIVE Normal 4 - [facility] PCP Ur Ql Scn NEGATIVE Normal 4 - [facility] Amphet Ur Ql Scn NEGATIVE Normal 4 - [facility] GLUCOSE BLDC GLUCOMTR MCNC 127.0 mg/dL Normal 4 70 - 199 [facility] MAGNESIUM SERPL MCNC 1.8 mg/dL Normal 4 1.7 - 2.8 [facility] PHOSPHATE SERPL MCNC 3.2 mg/dL Normal 4 2.5 - 4.5 [facility] Glomerular filtration rate/1.73 sq M. predicted 55.0 Below low normal 4 60 - [facility] CALCIUM SERPL MCNC 8.0 mg/dL Below low normal 08/22 4 8.4 - 10.2 [facility] PROT SERPL MCNC 5.5 g/dL Below low normal 08/23/19 2 4 6.4 - 8.5 [facility] GLUCOSE SERPL MCNC 126.0 mg/dL Normal 4 70 - 199 [facility] ALP SERPL-CCNC 142.0 U/L Above high normal 08/23/19 2 4 34 - 104 [facility] HCO3 SER SCNC 20.0 mmol/L Below low normal 4 24 - 32 [facility] SODIUM SERPL SCNC 140.0 mmol/L Normal 4 135 - 145 [facility] BUN SERPL MCNC 47.0 mg/dL Above high normal 08/23/19 2 4 9 - 20 [facility] ALT SERPL CCNC 11.0 U/L Normal 4 7 - 52 [facility] CREAT SERPL MCNC 1.5 mg/dL Above high normal 4 0.7 - 1.3 [facility] POTASSIUM SERPL SCNC 4.4 mmol/L Normal 4 3.5 - 5.1 [facility] AST SERPL CCNC 35.0 U/L Normal 4 5 - 40 [facility] CHLORIDE SERPL SCNC 109.0 mmol/L Above high normal 4 98 - 107 [facility] ANION GAP SERPL SCNC 11.0 mmol/L Normal 4 5 - 14 [facility] BILIRUB SERPL MCNC 1.8 mg/dL Above high normal 4 0.3 - 1 [facility] ALBUMIN SERPL BCG MCNC 3.4 g/dL Below low normal 4 3.5 - 5 [facility] PLATELET NO. BLD AUTO 48.0 K/uL Below low normal 4 150 - 450 [facility] BASOPHILS IN BLOOD BY AUTOMATED COUNT 0.0 K/uL Normal 4 0 - 0.2 [facility] EOSINOPHIL NO. BLD AUTO 0.1 K/uL Normal 4 0 - 0.5 [facility] NEUTROPHILS NO. BLD AUTO 2.3 K/uL Normal 4 1.8 - 7.8 [facility] MCHC RBC AUTO MCNC 33.3 g/dL Normal 4 32 - 36 [facility] NEUTROPHILS NFR BLD AUTO 68.1 % Normal 4 44 - 74 [facility] MONOCYTES NO. BLD AUTO 0.4 K/uL Normal 4 0 - 0.8 [facility] WBC NO. BLD AUTO 3.3 K/uL Below low normal 02 4 4 - 10.5 [facility] LYMPHOCYTES NO. BLD AUTO 0.5 K/uL Below low normal 4 1 - 3.2 [facility] LYMPHOCYTES NFR BLD AUTO 15.6 % Below low normal 4 20 - 48 [facility] MCH RBC QN AUTO 31.4 pg Normal 4 25 - 33 [facility] RBC NO. BLD AUTO 2.28 M/uL Below low normal 02 4 4.7 - 6 [facility] HGB BLD MCNC 7.2 g/dL Below low normal 4 13.5 - 18 [facility] MCV RBC AUTO 94.3 fL Normal 4 78 - 100 [facility] PMV BLD AUTO 9.1 fL Normal 4 7.4 - 11.4 [facility] EOSINOPHIL NFR BLD AUTO 2.4 % Normal 4 0 - 6 [facility] HCT VFR BLD AUTO 21.5 % Below low normal 02 4 40 - 54 [facility] BASOPHILS NFR BLD AUTO 0.9 % Normal 4 0 - 2 [facility] DIFFERENTIAL TYPE AUTOMATED Normal 4 [facility] RDW RBC AUTO RTO 19.7 % Above high normal 4 12.1 - 17.7 [facility] MONOCYTES NFR BLD AUTO 13.0 % Above high normal 4 2 - 12 [facility] GLUCOSE BLDC GLUCOMTR MCNC 126.0 mg/dL Normal 4 70 - 199 [facility] WBC NO. BLD AUTO 4.4 K/uL Normal 4 4 - 10.5 [facility] BASOPHILS IN BLOOD BY AUTOMATED COUNT 0.0 K/uL Normal 4 0 - 0.2 [facility] MONOCYTES NO. BLD AUTO 0.5 K/uL Normal 4 0 - 0.8 [facility] NEUTROPHILS NFR BLD AUTO 64.5 % Normal 4 44 - 74 [facility] RDW RBC AUTO RTO 19.4 % Above high normal 4 12.1 - 17.7 [facility] NEUTROPHILS NO. BLD AUTO 2.8 K/uL Normal 4 1.8 - 7.8 [facility] PMV BLD AUTO 9.0 fL Normal 4 7.4 - 11.4 [facility] MONOCYTES NFR BLD AUTO 12.1 % Above high normal 4 2 - 12 [facility] BASOPHILS NFR BLD AUTO 0.9 % Normal 4 0 - 2 [facility] PLATELET NO. BLD AUTO 61.0 K/uL Below low normal 4 150 - 450 [facility] LYMPHOCYTES NO. BLD AUTO 0.9 K/uL Below low normal 4 1 - 3.2 [facility] DIFFERENTIAL TYPE AUTOMATED Normal 4 [facility] EOSINOPHIL NFR BLD AUTO 2.5 % Normal 4 0 - 6 [facility] MCH RBC QN AUTO 31.6 pg Normal 4 25 - 33 [facility] LYMPHOCYTES NFR BLD AUTO 20.0 % Normal 4 20 - 48 [facility] HGB BLD MCNC 7.9 g/dL Below low normal 4 13.5 - 18 [facility] MCV RBC AUTO 94.4 fL Normal 4 78 - 100 [facility] EOSINOPHIL NO. BLD AUTO 0.1 K/uL Normal 4 0 - 0.5 [facility] MCHC RBC AUTO MCNC 33.4 g/dL Normal 4 32 - 36 [facility] RBC NO. BLD AUTO 2.49 M/uL Below low normal 02 4 4.7 - 6 [facility] HCT VFR BLD AUTO 23.5 % Below low normal 02 4 40 - 54 [facility] MAGNESIUM SERPL MCNC 1.8 mg/dL Normal 4 1.7 - 2.8 [facility] VIT B12 SER MCNC 319.0 pg/mL Normal 4 180 - 914 [facility] FOLATE SERPL [facility] 8.2 ng/mL Normal 4 3 - [facility] IRON SERPL MCNC 50.0 mcg/dL Normal 4 49 - 181 [facility] UIBC SERPL [facility]NC 358.0 ug/dL Above high normal 02 4 155 - 355 [facility] IRON SATN MFR SERPL 12.0 % Below low normal 05/ 4 20 - 45 [facility] TIBC SERPL MCNC 408.0 ug/dL Normal 4 250 - 450 [facility] Hgb A1c MFr Bld HPLC 4.3 % Normal 4 - 5.7 [facility] FERRITIN SERPL MCNC 23.0 ng/mL Normal 08/23/19 2 4 20 - 250 [facility] PHOSPHATE SERPL MCNC 3.6 mg/dL Normal 4 2.5 - 4.5 [facility] BUN SERPL MCNC 48.0 mg/dL Above high normal 08/23/19 2 4 9 - 20 [facility] Glomerular filtration rate/1.73 sq M. predicted 47.0 Below low normal 4 60 - [facility] ALP SERPL-CCNC 151.0 U/L Above high normal 08/23/19 2 4 34 - 104 [facility] CALCIUM SERPL MCNC 8.3 mg/dL Below low normal 08/22 4 8.4 - 10.2 [facility] HCO3 SER SCNC 22.0 mmol/L Below low normal 4 24 - 32 [facility] ANION GAP SERPL SCNC 10.0 mmol/L Normal 4 5 - 14 [facility] SODIUM SERPL SCNC 138.0 mmol/L Normal 4 135 - 145 [facility] PROT SERPL MCNC 5.8 g/dL Below low normal 08/23/19 2 4 6.4 - 8.5 [facility] POTASSIUM SERPL SCNC 4.2 mmol/L Normal 4 3.5 - 5.1 [facility] ALT SERPL CCNC 12.0 U/L Normal 4 7 - 52 [facility] ALBUMIN SERPL BCG MCNC 3.6 g/dL Normal 4 3.5 - 5 [facility] CREAT SERPL MCNC 1.7 mg/dL Above high normal 4 0.7 - 1.3 [facility] AST SERPL CCNC 36.0 U/L Normal 4 5 - 40 [facility] BILIRUB SERPL MCNC 1.9 mg/dL Above high normal 4 0.3 - 1 [facility] GLUCOSE SERPL MCNC 106.0 mg/dL Normal 4 70 - 199 [facility] CHLORIDE SERPL SCNC 106.0 mmol/L Normal 08/23/19 2 4 98 - 107 [facility] HGB BLD MCNC 7.3 g/dL Below low normal 4 13.5 - 18 [facility] HCT VFR BLD AUTO 22.0 % Below low normal 02 4 40 - 54 [facility] GLUCOSE BLDC GLUCOMTR MCNC 146.0 mg/dL Normal 4 70 - 199 [facility] AMMONIA PLAS SCNC 51.0 mcmol/L Above high normal 08/21 4 15 - 45 [facility] GLUCOSE BLDC GLUCOMTR MCNC 96.0 mg/dL Normal 4 70 - 199 [facility] TRANS NUM UNITS PACKED RBC Refer to TYPE AND SCREEN Order, for Red Cell Product Data / Detail Normal 4 [facility] LIPASE SERPL CCNC 48.0 U/L Normal 4 11 - 82 [facility] INR PPP 1.5 Above high normal 4 0.8 - 1.1 [facility] PT TIME PPP 17.4 sec Above high normal 4 10.5 - 13.3 [facility] AMYLASE SERPL CCNC 35.0 U/L Normal 4 29 - 103 [facility] ALT SERPL CCNC 14.0 U/L Normal 4 7 - 52 [facility] ALP SERPL-CCNC 167.0 U/L Above high normal 08/22/19 2 4 34 - 104 [facility] AST SERPL CCNC 44.0 U/L Above high normal 08/22/19 2 4 5 - 40 [facility] LDH SERPL L TO P [facility]NC 184.0 U/L Normal 4 125 - 220 [facility] APTT TIME PPP 37.0 sec Normal 4 25 - 37 [facility] BILIRUB SERPL MCNC 1.5 mg/dL Above high normal 4 0.3 - 1 [facility] BILIRUB DIRECT SERPL MCNC 0.7 mg/dL Above high normal 4 0 - 0.2 [facility] POTASSIUM SERPL SCNC 4.5 mmol/L Normal 4 3.5 - 5.1 [facility] ANION GAP SERPL SCNC 14.0 mmol/L Normal 4 5 - 14 [facility] CALCIUM SERPL MCNC 8.7 mg/dL Normal 4 8.4 - 10.2 [facility] BUN SERPL MCNC 47.0 mg/dL Above high normal 08/22/19 2 4 9 - 20 [facility] Glomerular filtration rate/1.73 sq M. predicted 51.0 Below low normal 4 60 - [facility] SODIUM SERPL SCNC 138.0 mmol/L Normal 4 135 - 145 [facility] CREAT SERPL MCNC 1.6 mg/dL Above high normal 4 0.7 - 1.3 [facility] CHLORIDE SERPL SCNC 105.0 mmol/L Normal 08/22/19 2 4 98 - 107 [facility] GLUCOSE SERPL MCNC 108.0 mg/dL Normal 4 70 - 199 [facility] HCO3 SER SCNC 19.0 mmol/L Below low normal 4 24 - 32 [facility] ETHANOL SERPL MCNC 17.0 mg/dL Above high normal 4 0 - 10 [facility] MAGNESIUM SERPL MCNC 1.0 mg/dL Below low normal 4 1.7 - 2.8 [facility] PLATELET NO. BLD AUTO 66.0 K/uL Below low normal 4 150 - 450 [facility] PMV BLD AUTO 9.7 fL Normal 4 7.4 - 11.4 [facility] DIFFERENTIAL TYPE MANUAL Normal 4 [facility] MACROCYTES PRESENT Normal 4 [facility] BASOPHILS NFR BLD MANUAL 1.0 % Normal 4 0 - 2 [facility] MICROCYTES OCCASIONAL Normal 4 [facility] EOSINOPHIL NFR BLD MANUAL 3.0 % Normal 4 0 - 6 [facility] MONOCYTES NFR BLD MANUAL 10.0 % Normal 4 2 - 12 [facility] STOMATOCYTES PRESENT Normal 4 [facility] POLYS NFR BLD MANUAL 75.0 % Above high normal 4 44 - 74 [facility] TEARDROP CELLS OCCASIONAL Normal 4 [facility] HYPOCHROMIA PRESENT Normal 4 [facility] POLYCHROMASIA PRESENT Normal 4 [facility] LYMPHOCYTES NFR BLD MANUAL 11.0 % Below low normal 4 20 - 48 [facility] HCT VFR BLD AUTO 20.4 % Below low normal 02 4 40 - 54 [facility] HGB BLD MCNC 6.7 g/dL Below low normal 4 13.5 - 18 [facility] MCV RBC AUTO 97.6 fL Normal 4 78 - 100 [facility] RBC NO. BLD AUTO 2.09 M/uL Below low normal 02 4 4.7 - 6 [facility] WBC NO. BLD AUTO 4.9 K/uL Normal 4 4 - 10.5 [facility] RDW RBC AUTO RTO 19.7 % Above high normal 4 12.1 - 17.7 [facility] MCHC RBC AUTO MCNC 32.6 g/dL Normal 4 32 - 36 [facility] MCH RBC QN AUTO 31.8 pg Normal 4 25 - 33 [facility] MONOCYTES NO. BLD AUTO 0.5 K/uL Normal 4 0 - 0.8 [facility]DW RBC AUTO RTO 20.8 % Above high normal 4 12.1 - 17.7 [facility] MONOCYTES NFR BLD AUTO 7.9 % Normal 4 2 - 12 [facility] HCT VFR BLD AUTO 32.9 % Below low normal 02 4 40 - 54 [facility] MCHC RBC AUTO MCNC 33.0 g/dL Normal 4 32 - 36 [facility] NEUTROPHILS NO. BLD AUTO 4.7 K/uL Normal 4 1.8 - 7.8 [facility] RBC NO. BLD AUTO 3.66 M/uL Below low normal 02 4 4.7 - 6 [facility] EOSINOPHIL NFR BLD AUTO 3.0 % Normal 4 0 - 6 [facility] LYMPHOCYTES NFR BLD AUTO 13.2 % Below low normal 4 20 - 48 [facility] PMV BLD AUTO 8.0 fL Normal 4 7.4 - 11.4 [facility] PLATELET NO. BLD AUTO 113.0 K/uL Below low normal 4 150 - 450 [facility] BASOPHILS NFR BLD AUTO 1.3 % Normal 4 0 - 2 [facility] EOSINOPHIL NO. BLD AUTO 0.2 K/uL Normal 4 0 - 0.5 [facility] LYMPHOCYTES NO. BLD AUTO 0.8 K/uL Below low normal 4 1 - 3.2 [facility] NEUTROPHILS NFR BLD AUTO 74.6 % Above high normal 4 44 - 74 [facility] MCV RBC AUTO 90.0 fL Normal 4 78 - 100 [facility] WBC NO. BLD AUTO 6.3 K/uL Normal 4 4 - 10.5 [facility] HGB BLD MCNC 10.9 g/dL Below low normal 4 13.5 - 18 [facility] MCH RBC QN AUTO 29.7 pg Normal 4 25 - 33 [facility] DIFFERENTIAL TYPE AUTOMATED Normal 4 [facility] BASOPHILS IN BLOOD BY AUTOMATED COUNT 0.1 K/uL Normal 4 0 - 0.2 [facility] RBC NO. BLD AUTO 3.6 M/uL Below low normal 02 4 4.7 - 6 [facility] BASOPHILS IN BLOOD BY AUTOMATED COUNT 0.1 K/uL Normal 4 0 - 0.2 [facility] LYMPHOCYTES NO. BLD AUTO 1.6 K/uL Normal 4 1 - 3.2 [facility] MONOCYTES NO. BLD AUTO 0.8 K/uL Normal 4 0 - 0.8 [facility] EOSINOPHIL NO. BLD AUTO 0.6 K/uL Above high normal 4 0 - 0.5 [facility] EOSINOPHIL NFR BLD AUTO 6.3 % Above high normal 4 0 - 6 [facility] LYMPHOCYTES NFR BLD AUTO 17.5 % Below low normal 4 20 - 48 [facility] DIFFERENTIAL TYPE AUTOMATED Normal 4 [facility] MCV RBC AUTO 85.3 fL Normal 4 78 - 100 [facility] MCHC RBC AUTO MCNC 33.4 g/dL Normal 4 32 - 36 [facility] PLATELET NO. BLD AUTO 172.0 K/uL Normal 4 150 - 450 [facility] RDW RBC AUTO RTO 17.6 % Normal 4 12.1 - 17.7 [facility]CH RBC QN AUTO 28.5 pg Normal 4 25 - 33 [facility] WBC NO. BLD AUTO 9.4 K/uL Normal 4 4 - 10.5 [facility] HGB BLD MCNC 10.3 g/dL Below low normal 4 13.5 - 18 [facility] BASOPHILS NFR BLD AUTO 1.2 % Normal 4 0 - 2 [facility] NEUTROPHILS NO. BLD AUTO 6.3 K/uL Normal 4 1.8 - 7.8 [facility] HCT VFR BLD AUTO 30.7 % Below low normal 02 4 40 - 54 [facility] NEUTROPHILS NFR BLD AUTO 66.9 % Normal 4 44 - 74 [facility] PMV BLD AUTO 8.9 fL Normal 4 7.4 - 11.4 [facility] MONOCYTES NFR BLD AUTO 8.1 % Normal 4 2 - 12 [facility] FERRITIN SERPL [facility] 187.0 ng/mL Normal 07/09/19 2 4 20 - 250 [facility] IRON SERPL [facility] 44.0 mcg/dL Below low normal 07/09/19 2 4 49 - 181 [facility] TIBC SERPL [facility] 420.0 ug/dL Normal 4 250 - 450 [facility] IRON SATN MFR SERPL 10.0 % Below low normal 06/20 4 20 - 45 [facility] UIBC SERPL [facility] 376.0 ug/dL Above high normal 02 4 155 - 355 [facility] CHLORIDE SERPL [facility] 97.0 mmol/L Below low normal 06/20 4 98 - 107 [facility] ALT SERPL [facility] 39.0 U/L Normal 4 7 - 52 [facility] SODIUM SERPL [facility] 138.0 mmol/L Normal 4 135 - 145 [facility] Glomerular filtration rate/1.73 sq M. predicted 59.0 Below low normal 4 60 - [facility] GLUCOSE SERPL [facility]NC 117.0 mg/dL Normal 4 70 - 199 [facility] HCO3 SER SCNC 28.0 mmol/L Normal 4 24 - 32 [facility] CALCIUM SERPL [facility] 8.9 mg/dL Normal 4 8.4 - 10.2 [facility] BUN SERPL [facility] 17.0 mg/dL Normal 4 9 - 20 [facility] ANION GAP SERPL SCNC 13.0 mmol/L Normal 4 5 - 14 [facility] PROT SERPL [facility] 6.7 g/dL Normal 4 6.4 - 8.5 [facility] ALP SERPL-[facility] 185.0 U/L Above high normal 07/09/19 2 4 34 - 104 [facility] BILIRUB SERPL MCNC 1.2 mg/dL Above high normal 06/20 4 0.3 - 1 [facility] AST SERPL [facility] 67.0 U/L Above high normal 07/09/19 2 4 5 - 40 [facility] ALBUMIN SERPL BCG MCNC 4.2 g/dL Normal 4 3.5 - 5 [facility] POTASSIUM SERPL [facility] 4.1 mmol/L Normal 4 3.5 - 5.1 [facility] CREAT SERPL [facility] 1.4 mg/dL Above high normal 4 0.7 - 1.3 [facility] MAGNESIUM SERPL MCNC 1.9 mg/dL Normal 4 1.7 - 2.8 [facility] RBC NO. BLD AUTO 3.08 M/uL Below low normal 02 4 4.7 - 6 [facility] MCV RBC AUTO 87.4 fL Normal 4 78 - 100 [facility] HCT VFR BLD AUTO 26.9 % Below low normal 02 4 40 - 54 [facility] WBC NO. BLD AUTO 3.7 K/uL Below low normal 02 4 4 - 10.5 [facility] PLATELET NO. BLD AUTO 102.0 K/uL Below low normal 4 150 - 450 [facility] HGB BLD MCNC 8.9 g/dL Below low normal 4 13.5 - 18 [facility] MCHC RBC AUTO MCNC 33.2 g/dL Normal 4 32 - 36 [facility] MCH RBC QN AUTO 29.1 pg Normal 4 25 - 33 [facility] PMV BLD AUTO 9.4 fL Normal 4 7.4 - 11.4 [facility] RDW RBC AUTO RTO 17.7 % Normal 4 12.1 - 17.7 [facility] CALCIUM SERPL MCNC 8.8 mg/dL Normal 4 8.4 - 10.2 [facility] HCO3 SER SCNC 23.0 mmol/L Below low normal 4 24 - 32 [facility] ANION GAP SERPL SCNC 9.0 mmol/L Normal 4 5 - 14 [facility] BUN SERPL [facility]NC 23.0 mg/dL Above high normal 06/27/19 2 4 9 - 20 [facility] SODIUM SERPL SCNC 134.0 mmol/L Below low normal 4 135 - 145 [facility] POTASSIUM SERPL SCNC 4.8 mmol/L Normal 4 3.5 - 5.1 [facility] Glomerular filtration rate/1.73 sq M. predicted 55.0 Below low normal 4 60 - [facility] GLUCOSE SERPL MCNC 167.0 mg/dL Normal 4 70 - 199 [facility] CHLORIDE SERPL SCNC 102.0 mmol/L Normal 06/27/19 2 4 98 - 107 [facility] CREAT SERPL MCNC 1.5 mg/dL Above high normal 4 0.7 - 1.3 [facility] GLUCOSE BLDC GLUCOMTR MCNC 140.0 mg/dL Normal 4 70 - 199 [facility] GLUCOSE BLDC GLUCOMTR MCNC 127.0 mg/dL Normal 4 70 - 199 [facility] HGB BLD [facility]NC 9.4 g/dL Below low normal 4 13.5 - 18 [facility] HCT VFR BLD AUTO 28.7 % Below low normal 02 4 40 - 54 [facility] GLUCOSE BLDC GLUCOMTR MCNC 97.0 mg/dL Normal 4 70 - 199 [facility] GLUCOSE BLDC GLUCOMTR [facility] 98.0 mg/dL Normal 4 70 - 199 [facility] TRANS NUM UNITS PACKED RBC Refer to TYPE AND SCREEN Order, for Red Cell Product Data / Detail Normal 4 [facility] MAGNESIUM SERPL [facility] 1.0 mg/dL Below low normal 4 1.7 - 2.8 [facility] GLUCOSE P FAST SERPL [facility] 68.0 mg/dL Below low normal 4 70 - 99 [facility] CALCIUM SERPL [facility] 6.6 mg/dL Below low normal 06/25 4 8.4 - 10.2 [facility] SODIUM SERPL [facility] 142.0 mmol/L Normal 4 135 - 145 [facility] CHLORIDE SERPL [facility] 113.0 mmol/L Above high normal 4 98 - 107 [facility] BUN SERPL [facility] 24.0 mg/dL Above high normal 06/26/19 2 4 9 - 20 [facility] CREAT SERPL [facility] 1.2 mg/dL Normal 4 0.7 - 1.3 [facility] ANION GAP SERPL [facility] 10.0 mmol/L Normal 4 5 - 14 [facility] POTASSIUM SERPL [facility] 3.2 mmol/L Below low normal 4 3.5 - 5.1 [facility] HCO3 SER [facility] 19.0 mmol/L Below low normal 4 24 - 32 [facility] Glomerular filtration rate/1.73 sq M. predicted 71.0 Normal 4 60 - [facility] BILIRUB SERPL [facility] 2.1 mg/dL Above high normal 4 0.3 - 1 [facility] ALBUMIN SERPL BCG [facility] 2.9 g/dL Below low normal 4 3.5 - 5 [facility] ALP SERPL-[facility] 111.0 U/L Above high normal 06/26/19 2 4 34 - 104 [facility] AST SERPL [facility] 43.0 U/L Above high normal 06/26/19 2 4 5 - 40 [facility] ALBUMIN/GLOB SERPL MRTO 1.6 Normal 4 [facility] PROT SERPL [facility] 4.7 g/dL Below low normal 06/26/19 2 4 6.4 - 8.5 [facility] BILIRUB DIRECT SERPL [facility] 0.8 mg/dL Above high normal 4 0 - 0.2 [facility] ALT SERPL [facility] 19.0 U/L Normal 4 7 - 52 [facility] WBC NO. BLD AUTO 3.3 K/uL Below low normal 02 4 4 - 10.5 [facility] MCHC RBC AUTO [facility] 32.6 g/dL Normal 4 32 - 36 [facility] MCV RBC AUTO 85.7 fL Normal 4 78 - 100 [facility] PMV BLD AUTO 8.7 fL Normal 4 7.4 - 11.4 [facility] MCH RBC QN AUTO 27.9 pg Normal 4 25 - 33 [facility] HCT VFR BLD AUTO 24.0 % Below low normal 02 4 40 - 54 [facility] RDW RBC AUTO RTO 17.8 % Above high normal 4 12.1 - 17.7 [facility] PLATELET NO. BLD AUTO 86.0 K/uL Below low normal 4 150 - 450 [facility] HGB BLD [facility] 7.8 g/dL Below low normal 4 13.5 - 18 [facility] RBC NO. BLD AUTO 2.8 M/uL Below low normal 02 4 4.7 - 6 [facility] GLUCOSE BLDC GLUCOMTR [facility] 95.0 mg/dL Normal 4 70 - 199 [facility] GLUCOSE BLDC GLUCOMTR [facility] 73.0 mg/dL Normal 4 70 - 199 [facility] GLUCOSE BLDC GLUCOMTR [facility] 120.0 mg/dL Normal 4 70 - 199 [facility] GLUCOSE BLDC GLUCOMTR [facility] 59.0 mg/dL Below low normal 4 70 - 199 [facility] TIBC SERPL [facility] 457.0 ug/dL Above high normal 02 4 250 - 450 [facility] UIBC SERPL [facility] 215.0 ug/dL Normal 4 155 - 355 [facility] IRON SATN MFR SERPL 53.0 % Above high normal 4 20 - 45 [facility] IRON SERPL [facility] 242.0 mcg/dL Above high normal 02 4 49 - 181 [facility] HGB BLD [facility] 6.9 g/dL Below low normal 4 13.5 - 18 [facility] HCT VFR BLD AUTO 21.4 % Below low normal 02 4 40 - 54 [facility] Hgb A1c MFr Bld HPLC 4.5 % Normal 4 - 5.7 [facility] FOLATE SERPL [facility] 7.5 ng/mL Normal 4 3 - [facility] VIT B12 SER [facility] 604.0 pg/mL Normal 4 180 - 914 [facility] PROT SERPL [facility] 5.9 g/dL Below low normal 06/26/19 2 4 6.4 - 8.5 [facility] AST SERPL [facility] 49.0 U/L Above high normal 06/26/19 2 4 5 - 40 [facility] ALBUMIN/GLOB SERPL MRTO 1.5 Normal 4 [facility] BILIRUB SERPL [facility] 2.5 mg/dL Above high normal 4 0.3 - 1 [facility] ALT SERPL [facility] 24.0 U/L Normal 4 7 - 52 [facility] ALP SERPL-[facility] 151.0 U/L Above high normal 06/26/19 2 4 34 - 104 [facility] BILIRUB DIRECT SERPL [facility] 0.8 mg/dL Above high normal 4 0 - 0.2 [facility] ALBUMIN SERPL BCG [facility] 3.5 g/dL Normal 4 3.5 - 5 [facility] GLUCOSE BLDC GLUCOMTR [facility] 75.0 mg/dL Normal 4 70 - 199 [facility] GLUCOSE BLDC GLUCOMTR [facility] 91.0 mg/dL Normal 4 70 - 199 [facility] HCT VFR BLDC 22.0 % Below low normal 4 40 - 54 [facility] HGB BLDC [facility] 7.5 g/dL Below low normal 4 13.5 - 18 [facility] SODIUM BLDC SC[facility] 136.0 mmol/L Normal 4 135 - 145 [facility] POTASSIUM BLDC [facility] 4.7 mmol/L Normal 06/25/19 2 4 3.5 - 5.1 [facility] APTT TIME PPP 36.0 sec Normal 4 25 - 37 [facility] PT TIME PPP 16.2 sec Above high normal 4 10.5 - 13.3 [facility] INR PPP 1.4 Above high normal 4 0.8 - 1.1 [facility] CHLORIDE SERPL [facility] 102.0 mmol/L Normal 06/25/19 2 4 98 - 107 [facility] BUN SERPL [facility] 32.0 mg/dL Above high normal 06/25/19 2 4 9 - 20 [facility] POTASSIUM SERPL [facility] 4.6 mmol/L Normal 4 3.5 - 5.1 [facility] GLUCOSE SERPL [facility] 99.0 mg/dL Normal 4 70 - 199 [facility] CREAT SERPL [facility] 1.8 mg/dL Above high normal 4 0.7 - 1.3 [facility] SODIUM SERPL [facility] 138.0 mmol/L Normal 4 135 - 145 [facility] CALCIUM SERPL [facility] 9.5 mg/dL Normal 4 8.4 - 10.2 [facility] HCO3 SER [facility] 24.0 mmol/L Normal 4 24 - 32 [facility] Glomerular filtration rate/1.73 sq M. predicted 44.0 Below low normal 4 60 - [facility] ANION GAP SERPL [facility] 12.0 mmol/L Normal 4 5 - 14 [facility] MCH RBC QN AUTO 27.1 pg Normal 4 25 - 33 [facility] HCT VFR BLD AUTO 21.3 % Below low normal 02 4 40 - 54 [facility] PMV BLD AUTO 9.6 fL Normal 4 7.4 - 11.4 [facility] NEUTROPHILS NO. BLD AUTO 2.8 K/uL Normal 4 1.8 - 7.8 [facility] MCV RBC AUTO 85.6 fL Normal 4 78 - 100 [facility] NEUTROPHILS NFR BLD AUTO 67.1 % Normal 4 44 - 74 [facility] PLATELET NO. BLD AUTO 111.0 K/uL Below low normal 4 150 - 450 [facility] BASOPHILS NFR BLD AUTO 1.4 % Normal 4 0 - 2 [facility] MCHC RBC AUTO [facility] 31.7 g/dL Below low normal 06/24 4 32 - 36 [facility] RDW RBC AUTO RTO 20.2 % Above high normal 4 12.1 - 17.7 [facility] LYMPHOCYTES NO. BLD AUTO 0.8 K/uL Below low normal 4 1 - 3.2 [facility] WBC NO. BLD AUTO 4.2 K/uL Normal 4 4 - 10.5 [facility] MONOCYTES NFR BLD AUTO 11.4 % Normal 4 2 - 12 [facility] EOSINOPHIL NFR BLD AUTO 2.4 % Normal 4 0 - 6 [facility] LYMPHOCYTES NFR BLD AUTO 17.7 % Below low normal 4 20 - 48 [facility] DIFFERENTIAL TYPE AUTOMATED Normal 4 [facility] MONOCYTES NO. BLD AUTO 0.5 K/uL Normal 4 0 - 0.8 [facility] HGB BLD [facility] 6.8 g/dL Below low normal 4 13.5 - 18 [facility] EOSINOPHIL NO. BLD AUTO 0.1 K/uL Normal 4 0 - 0.5 [facility] BASOPHILS IN BLOOD BY AUTOMATED COUNT 0.1 K/uL Normal 4 0 - 0.2 [facility] RBC NO. BLD AUTO 2.49 M/uL Below low normal 02 4 4.7 - 6 [facility] TRANS NUM UNITS PACKED RBC Refer to TYPE AND SCREEN Order, for Red Cell Product Data / Detail Normal 4 [facility] ABO+RH GP BLD A POSITIVE Normal 4 [facility] BLD GP AB SCN SERPL QL NEGATIVE Normal 4 [facility] BLOOD BANK CMNT PATIENT-IMP Testing performed at [facility], [address] [place] [id number], Sarah Bonds MD [employer], [facility] [id number] Normal 4 [facility] IMMATURE GRANULOCYTE, PERCENT 0.0 % Normal 4 0 - 1 [facility] PMV BLD AUTO 11.5 fL Above high normal 4 7.4 - 11.4 [facility] MONOCYTES NO. BLD AUTO 0.6 K/uL Normal 4 0 - 0.8 [facility] MCV RBC AUTO 90.5 fL Normal 4 78 - 100 [facility] WBC NO. BLD AUTO 4.9 K/uL Normal 4 4 - 10.5 [facility] RBC NO. BLD AUTO 2.21 M/uL Below low normal 02 4 4.7 - 6 [facility] PLATELET NO. BLD AUTO 120.0 K/uL Below low normal 4 150 - 450 [facility] EOSINOPHIL NO. BLD AUTO 0.1 K/uL Normal 4 0 - 0.5 [facility] LYMPHOCYTES NO. BLD AUTO 0.6 K/uL Below low normal 4 1 - 3.2 [facility] MCH RBC QN AUTO 27.1 pg Normal 4 25 - 33 [facility] HGB BLD [facility] 6.0 g/dL Below low normal 4 13.5 - 18 [facility] RDW RBC AUTO RTO 18.8 % Above high normal 4 12.1 - 17.7 [facility] NEUTROPHILS NFR BLD AUTO 73.4 % Normal 4 44 - 74 [facility] IMMATURE GRANULOCYTE, ABSOLUTE 0.0 k/uL Normal 4 - 0.1 [facility] HCT VFR BLD AUTO 20.0 % Below low normal 02 4 40 - 54 [facility] EOSINOPHIL NFR BLD AUTO 2.0 % Normal 4 0 - 6 [facility] BASOPHILS IN BLOOD BY AUTOMATED COUNT 0.1 K/uL Normal 4 0 - 0.2 [facility] MCHC RBC AUTO MCNC 30.0 g/dL Below low normal 06/24 4 32 - 36 [facility] BASOPHILS NFR BLD AUTO 1.2 % Normal 4 0 - 2 [facility] NEUTROPHILS NO. BLD AUTO 3.6 K/uL Normal 4 1.8 - 7.8 [facility] MONOCYTES NFR BLD AUTO 11.5 % Normal 4 2 - 12 [facility] LYMPHOCYTES NFR BLD AUTO 11.9 % Below low normal 4 20 - 48 [facility] CALCIUM SERPL [facility] 9.3 mg/dL Normal 4 8.4 - 10.2 [facility] ALP SERPL-[facility] 176.0 U/L Above high normal 06/26/19 2 4 34 - 104 [facility] ANION GAP SERPL [facility] 14.0 mmol/L Normal 4 5 - 14 [facility] AST SERPL [facility] 65.0 U/L Above high normal 06/26/19 2 4 5 - 40 [facility] Glomerular filtration rate/1.73 sq M. predicted 44.0 Below low normal 4 60 - [facility] ALT SERPL [facility] 28.0 U/L Normal 4 7 - 52 [facility] CHLORIDE SERPL [facility] 102.0 mmol/L Normal 06/26/19 2 4 98 - 107 [facility] CREAT SERPL [facility] 1.8 mg/dL Above high normal 4 0.7 - 1.3 [facility] POTASSIUM SERPL SC[facility] 4.7 mmol/L Normal 4 3.5 - 5.1 [facility] ALBUMIN SERPL BCG [facility] 3.9 g/dL Normal 4 3.5 - 5 [facility] GLUCOSE SERPL [facility] 117.0 mg/dL Normal 4 70 - 199 [facility] HCO3 SER SC[facility] 23.0 mmol/L Below low normal 4 24 - 32 [facility] SODIUM SERPL [facility] 139.0 mmol/L Normal 4 135 - 145 [facility] BUN SERPL [facility] 31.0 mg/dL Above high normal 06/26/19 2 4 9 - 20 [facility] PROT SERPL [facility] 6.2 g/dL Below low normal 06/26/19 2 4 6.4 - 8.5 [facility] BILIRUB SERPL [facility] 1.6 mg/dL Above high normal / 4 0.3 - 1 [facility] FERRITIN SERPL [facility] 19.0 ng/mL Below low normal 05/24 4 20 - 250 [facility] UIBC SERPL [facility] 432.0 ug/dL Above high normal 02 4 155 - 355 [facility] IRON SATN MFR SERPL 9.0 % Below low normal 05/24 4 20 - 45 [facility] TIBC SERPL [facility] 475.0 ug/dL Above high normal 02 4 250 - 450 [facility] IRON SERPL [facility] 43.0 mcg/dL Below low normal 06/14/19 2 4 49 - 181 [facility] MCH RBC QN AUTO 28.0 pg Normal 4 25 - 33 [facility] EOSINOPHIL NFR BLD AUTO 4.5 % Normal 4 0 - 6 [facility] PLATELET NO. BLD AUTO 133.0 K/uL Below low normal 4 150 - 450 [facility] LYMPHOCYTES NFR BLD AUTO 19.2 % Below low normal 4 20 - 48 [facility] LYMPHOCYTES NO. BLD AUTO 1.0 K/uL Normal 4 1 - 3.2 [facility] HGB BLD [facility] 8.4 g/dL Below low normal 4 13.5 - 18 [facility] PMV BLD AUTO 8.5 fL Normal 4 7.4 - 11.4 [facility] RDW RBC AUTO RTO 18.0 % Above high normal 4 12.1 - 17.7 [facility] MONOCYTES NO. BLD AUTO 0.7 K/uL Normal 4 0 - 0.8 [facility] EOSINOPHIL NO. BLD AUTO 0.2 K/uL Normal 4 0 - 0.5 [facility] BASOPHILS IN BLOOD BY AUTOMATED COUNT 0.1 K/uL Normal 4 0 - 0.2 [facility] NEUTROPHILS NFR BLD AUTO 61.9 % Normal 4 44 - 74 [facility] MONOCYTES NFR BLD AUTO 13.0 % Above high normal 4 2 - 12 [facility] HCT VFR BLD AUTO 25.7 % Below low normal 02 4 40 - 54 [facility] DIFFERENTIAL TYPE AUTOMATED Normal 4 [facility] MCV RBC AUTO 85.4 fL Normal 4 78 - 100 [facility] WBC NO. BLD AUTO 5.2 K/uL Normal 4 4 - 10.5 [facility] MCHC RBC AUTO MCNC 32.8 g/dL Normal 4 32 - 36 [facility] BASOPHILS NFR BLD AUTO 1.4 % Normal 4 0 - 2 [facility] NEUTROPHILS NO. BLD AUTO 3.2 K/uL Normal 4 1.8 - 7.8 [facility] RBC NO. BLD AUTO 3.01 M/uL Below low normal 02 4 4.7 - 6 [facility] HCO3 SER SCNC 30.0 mmol/L Normal 4 24 - 32 [facility] ANION GAP SERPL SCNC 14.0 mmol/L Normal 4 5 - 14 [facility] CHLORIDE SERPL SCNC 95.0 mmol/L Below low normal 4 98 - 107 [facility] SODIUM SERPL SCNC 139.0 mmol/L Normal 4 135 - 145 [facility] GLUCOSE P FAST SERPL [facility]NC 132.0 mg/dL Above high normal 4 70 - 99 [facility] CREAT SERPL MCNC 1.4 mg/dL Above high normal 4 0.7 - 1.3 [facility] Glomerular filtration rate/1.73 sq M. predicted 59.0 Below low normal 4 60 - [facility] BUN SERPL [facility] 15.0 mg/dL Normal 4 9 - 20 [facility] POTASSIUM SERPL SCNC 3.7 mmol/L Normal 4 3.5 - 5.1 [facility] CALCIUM SERPL MCNC 8.8 mg/dL Normal 4 8.4 - 10.2 [facility] Hgb A1c MFr Bld HPLC 5.0 % Normal 4 - 5.7 [facility] CHOLEST SERPL-MCNC 202.0 mg/dL Above high normal 4 0 - 200 [facility] TRIGL SERPL-MCNC 101.0 mg/dL Normal 4 - 150 [facility] LDLc SerPl Calc-mCnc 124.0 mg/dL Normal 4 50 - 130 [facility] HDLC SERPL-MCNC 58.0 mg/dL Normal 4 32 - 70 [facility] MONOCYTES NO. BLD AUTO 0.6 K/uL Normal 4 0 - 0.8 [facility] WBC NO. BLD AUTO 5.6 K/uL Normal 4 4 - 10.5 [facility] EOSINOPHIL NO. BLD AUTO 0.1 K/uL Normal 4 0 - 0.5 [facility] MCH RBC QN AUTO 28.7 pg Normal 4 25 - 33 [facility] HGB BLD MC[facility] 11.0 g/dL Below low normal 4 13.5 - 18 [facility] BASOPHILS NFR BLD AUTO 1.0 % Normal 4 0 - 2 [facility] NEUTROPHILS NO. BLD AUTO 4.0 K/uL Normal 4 1.8 - 7.8 [facility] RDW RBC AUTO RTO 17.8 % Above high normal 4 12.1 - 17.7 [facility] LYMPHOCYTES NO. BLD AUTO 0.9 K/uL Below low normal 4 1 - 3.2 [facility] HCT VFR BLD AUTO 32.7 % Below low normal 02 4 40 - 54 [facility] MONOCYTES NFR BLD AUTO 10.2 % Normal 4 2 - 12 [facility] LYMPHOCYTES NFR BLD AUTO 15.8 % Below low normal 4 20 - 48 [facility] RBC NO. BLD AUTO 3.82 M/uL Below low normal 02 4 4.7 - 6 [facility] PLATELET NO. BLD AUTO 140.0 K/uL Below low normal 4 150 - 450 [facility] PMV BLD AUTO 8.2 fL Normal 4 7.4 - 11.4 [facility] BASOPHILS IN BLOOD BY AUTOMATED COUNT 0.1 K/uL Normal 4 0 - 0.2 [facility] MCHC RBC AUTO MCNC 33.6 g/dL Normal 4 32 - 36 [facility] NEUTROPHILS NFR BLD AUTO 70.8 % Normal 4 44 - 74 [facility] EOSINOPHIL NFR BLD AUTO 2.2 % Normal 4 0 - 6 [facility] MCV RBC AUTO 85.5 fL Normal 4 78 - 100 [facility] DIFFERENTIAL TYPE AUTOMATED Normal 4 [facility] FRUCTOSAMINE 195.0 Normal 4 [facility] D DIMER DDU PPP EIA MCNC 392.0 ng/mL DDU Above high normal 4 - 231 [facility] MICROALBUMIN UR MCNC 44.1 mg/dL Normal 4 [facility] MICROALBUMIN/CREAT UR 272.6 mg/g Above high normal 4 - 30 [facility] CREAT UR MCNC 161.8 mg/dL Normal 4 [facility] ALBUMIN SERPL BCG MCNC 4.0 g/dL Normal 4 3.5 - 5 [facility] AST SERPL CC[facility] 63.0 U/L Above high normal 04/26/19 2 4 5 - 40 [facility] PROT SERPL [facility] 6.6 g/dL Normal 4 6.4 - 8.5 [facility] ALBUMIN/GLOB SERPL MRTO 1.5 Normal 4 [facility] BILIRUB SERPL MCNC 2.1 mg/dL Above high normal 4 0.3 - 1 [facility] ALT SERPL [facility] 26.0 U/L Normal 4 7 - 52 [facility] BILIRUB DIRECT SERPL [facility] 1.0 mg/dL Above high normal 4 0 - 0.2 [facility] ALP SERPL-CCNC 291.0 U/L Above high normal 04/26/19 2 4 34 - 104 [facility] TRANS NUM UNITS PACKED RBC Refer to TYPE AND SCREEN Order, for Red Cell Product Data / Detail Normal [facility] Trop[facility] SerPl HS-mCnc 17.0 ng/L Normal 4 0 - 20 [facility] CREAT SERPL [facility] 1.6 mg/dL Above high normal 4 0.7 - 1.3 [facility] CHLORIDE SERPL SCNC 103.0 mmol/L Normal 04/26/19 2 4 98 - 107 [facility] GLUCOSE SERPL MCNC 130.0 mg/dL Normal 4 70 - 199 [facility] BUN SERPL MCNC 33.0 mg/dL Above high normal 04/26/19 2 4 9 - 20 [facility] Glomerular filtration rate/1.73 sq M. predicted 51.0 Below low normal 4 60 - [facility] ANION GAP SERPL SCNC 11.0 mmol/L Normal 4 5 - 14 [facility] CALCIUM SERPL MCNC 9.0 mg/dL Normal 4 8.4 - 10.2 [facility] SODIUM SERPL SCNC 137.0 mmol/L Normal 4 135 - 145 [facility] POTASSIUM SERPL SCNC 4.7 mmol/L Normal 4 3.5 - 5.1 [facility] HCO3 SER SCNC 23.0 mmol/L Below low normal 4 24 - 32 [facility] BASOPHILS IN BLOOD BY AUTOMATED COUNT 0.0 K/uL Normal 4 0 - 0.2 [facility] HCT VFR BLD AUTO 19.5 % Below low normal 02 4 40 - 54 [facility] NEUTROPHILS NO. BLD AUTO 3.2 K/uL Normal 4 1.8 - 7.8 [facility] EOSINOPHIL NO. BLD AUTO 0.2 K/uL Normal 4 0 - 0.5 [facility] IMMATURE GRANULOCYTE, PERCENT 0.4 % Normal 4 0 - 1 [facility] PLATELET NO. BLD AUTO 118.0 K/uL Below low normal 4 150 - 450 [facility] IMMATURE GRANULOCYTE, ABSOLUTE 0.02 k/uL Normal 4 - 0.1 [facility] MCV RBC AUTO 101.0 fL Above high normal 4 78 - 100 [facility] LYMPHOCYTES NO. BLD AUTO 0.5 K/uL Below low normal 4 1 - 3.2 [facility] MONOCYTES NFR BLD AUTO 14.3 % Above high normal 4 2 - 12 [facility] HGB BLD MCNC 5.9 g/dL Below low normal 4 13.5 - 18 [facility] PMV BLD AUTO 10.6 fL Normal 4 7.4 - 11.4 [facility] EOSINOPHIL NFR BLD AUTO 4.5 % Normal 4 0 - 6 [facility] MCH RBC QN AUTO 30.6 pg Normal 4 25 - 33 [facility] RBC NO. BLD AUTO 1.93 M/uL Below low normal 02 4 4.7 - 6 [facility] NUCLEATED RBC 0.0 % Normal 4 0 - 1 [facility] BASOPHILS NFR BLD AUTO 0.9 % Normal 4 0 - 2 [facility] LYMPHOCYTES NFR BLD AUTO 11.5 % Below low normal 4 20 - 48 [facility] NEUTROPHILS NFR BLD AUTO 68.4 % Normal 4 44 - 74 [facility] WBC NO. BLD AUTO 4.7 K/uL Normal 4 4 - 10.5 [facility] RDW RBC AUTO RTO 18.6 % Above high normal 4 12.1 - 17.7 [facility] MCHC RBC AUTO MCNC 30.3 g/dL Below low normal 04/26 4 32 - 36 [facility] MONOCYTES NO. BLD AUTO 0.7 K/uL Normal 4 0 - 0.8 [facility] PT TIME PPP 19.1 sec Above high normal 4 10.5 - 13.3 [facility] INR PPP 1.6 Above high normal 4 0.8 - 1.1 [facility] APTT TIME PPP 39.0 sec Above high normal 4 25 - 37 [facility] ABO+RH GP BLD A POSITIVE Normal 4 [facility] BLD GP AB SCN SERPL QL NEGATIVE Normal 4 [facility] BLOOD BANK CMNT PATIENT-IMP Performed at [facility], [address] [place] [address] CLIA [id number] HP [id number] Normal 4 [facility] BNP BLD MCNC 379.0 pg/mL Above high normal 4 0 - 100 [facility] MAGNESIUM SERPL MCNC 1.5 mg/dL Below low normal 4 1.7 - 2.8 [facility] HAV IGM SER QL EIA NEGATIVE Normal 4 - [facility] HBV core IgM SerPl Ql EIA NEGATIVE Normal 4 - [facility] HCV IGG SER QL EIA NEGATIVE Normal 4 - [facility] HBV SURFACE AG SER QL EIA NEGATIVE Normal 4 - [facility] MCHC RBC AUTO MCNC 31.4 g/dL Below low normal 03/05 3 32 - 36 [facility] EOSINOPHIL NFR BLD AUTO 5.4 % Normal 3 0 - 6 [facility] NEUTROPHILS NO. BLD AUTO 2.8 K/uL Normal 3 1.8 - 7.8 [facility] BASOPHILS IN BLOOD BY AUTOMATED COUNT 0.1 K/uL Normal 3 0 - 0.2 [facility] HGB BLD [facility]NC 10.3 g/dL Below low normal 3 13.5 - 18 [facility] MONOCYTES NO. BLD AUTO 0.6 K/uL Normal 3 0 - 0.8 [facility] MONOCYTES NFR BLD AUTO 13.1 % Above high normal 3 2 - 12 [facility] EOSINOPHIL NO. BLD AUTO 0.2 K/uL Normal 3 0 - 0.5 [facility] RBC NO. BLD AUTO 3.48 M/uL Below low normal 02 3 4.7 - 6 [facility] NEUTROPHILS NFR BLD AUTO 66.2 % Normal 3 44 - 74 [facility] WBC NO. BLD AUTO 4.3 K/uL Normal 3 4 - 10.5 [facility] LYMPHOCYTES NFR BLD AUTO 13.4 % Below low normal 3 20 - 48 [facility] RDW RBC AUTO RTO 16.5 % Normal 3 12.1 - 17.7 [facility] IMMATURE GRANULOCYTE, ABSOLUTE 0.02 k/uL Normal 3 - 0.1 [facility] MCV RBC AUTO 94.3 fL Normal 3 78 - 100 [facility] IMMATURE GRANULOCYTE, PERCENT 0.5 % Normal 3 0 - 1 [facility] PMV BLD AUTO 11.8 fL Above high normal 3 7.4 - 11.4 [facility] BASOPHILS NFR BLD AUTO 1.4 % Normal 3 0 - 2 [facility] MCH RBC QN AUTO 29.6 pg Normal 3 25 - 33 [facility] HCT VFR BLD AUTO 32.8 % Below low normal 02 3 40 - 54 [facility] LYMPHOCYTES NO. BLD AUTO 0.6 K/uL Below low normal 3 1 - 3.2 [facility] TIBC SERPL [facility]NC 423.0 ug/dL Normal 3 250 - 450 [facility] UIBC SERPL [facility] 358.0 ug/dL Above high normal 02 3 155 - 355 [facility] IRON SATN MFR SERPL 15.0 % Below low normal 02/20 3 20 - 45 [facility] IRON SERPL MCNC 65.0 mcg/dL Normal 3 49 - 181 [facility] FERRITIN SERPL [facility] 22.0 ng/mL Normal 03/06/20 2 3 20 - 250 [facility] History of Medication Use Medication Directions Dispensed Refills Start Date End Date Status folic acid (FOLVITE) 1 mg tablet Take 1 tablet (1 mg total) by mouth 1 (one) time each day. 5 active iron,carbonyl-danielle min C 65 mg iron- 125 mg tablet,delayed release (DR/EC) Take 1 tablet by mouth every 60 (sixty) hours. 5 active iron,carbonyl-danielle min C 65 mg iron- 125 mg tablet,delayed release (DR/EC) Take 1 tablet by mouth every 60 (sixty) hours. 5 active urea (URE-NA) packet 15 g 15 g, oral, 2 times daily, First dose on Sat11/26/24 at 1400 5 025 aborted valsartan (DIOVAN) tablet 40 mg 40 mg, oral, Daily, First dose on Sat11/25/24 at 0900 5 025 aborted insulin glargine (LANTUS) injection 13 Units 13 Units, subcutaneous, Nightly, First dose on Sat11/24/24 at 2100, Notify provider: -If patient is currently or will become NPO -If TPN was or will be interrupted or discontinued -For approval to hold long acting insulin 5 active heparin (UFH) injection 5,000 Units 5,000 Units, subcutaneous, Every 8 hours scheduled, First dose on Sat11/24/24 at 1643, Enter Indication for use of heparin (UFH) instead of enoxaparin (LOVENOX): (free text): CKD-3, Indication: VTE Prophylaxis, Indications: Prophylaxis of Venous Thromboembolism, On hold since Sat11/27/2024 at 1726 unt 5 active thiamine (VITAMIN B-1) tablet 100 mg 100 mg, oral, Daily, First dose on Sat11/24/24 at 1900 5 active glucagon (Gvoke HypoPen 2-Pack) 1 mg/0.2 mL auto-injector Inject 1 mg under the skin if needed (In case of severe low sugars. If used, call 911). 5 active glucagon (Gvoke HypoPen 2-Pack) 1 mg/0.2 mL auto-injector Inject 1 mg under the skin if needed (In case of severe low sugars. If used, call 911). 5 active colchicine (COLCRYS) 0.6 mg tablet TAKE ONE TABLET (0.6MG TOTAL) BY MOUTH ONCE DAILY 5 active apixaban (ELIQUIS) 5 mg tablet Take 1 tablet (5 mg total) by mouth 2 (two) times a day. 5 active insulin glargine (LANTUS) injection 7 Units 7 Units, subcutaneous, Nightly, First dose on 11/01/24 at 2100, Notify provider: -If patient is currently or will become NPO -If TPN was or will be interrupted or discontinued -For approval to hold long acting insulin 5 active ketoconazole (NIZORAL) 2 % cream Topical, 2 times daily, First dose on 11/01/24 at 2100, For external use only. Avoid contact with eyes and other mucous membranes. Wash hands after application. 5 active bumetanide (BUMEX) injection 1 mg 1 mg, intravenous, Daily, First dose on 11/01/24 at 1806 5 025 aborted iopamidoL (ISOVUE-370) 370 mg iodine /mL (76 %) injection 100 mL 100 mL, intravenous, Once in imaging, Starting on 11/01/24 at 0955, For 1 dose 5 025 completed sodium chloride 0.9 % intravenous solution 10 mL 10 mL, intravenous, Once in imaging, Starting on 11/01/24 at 0955, For 1 dose 5 025 completed allopurinoL (ZYLOPRIM) tablet 300 mg 300 mg, oral, Daily, First dose on 11/01/24 at 1805, For 265 days 5 active insulin regular (HumuLIN R) injection 4 Units 4 Units, subcutaneous, Once, On Sat10/07/24 at 0245, For 1 dose 5 025 completed insulin regular (HumuLIN R) injection 6 Units 6 Units, subcutaneous, Once, On Sat10/06/24 at 2145, For 1 dose 5 025 completed insulin glargine (LANTUS SoloStar) 100 unit/mL (3 mL) injection pen Inject 15 Units under the skin at bedtime. 5 active insulin glargine (LANTUS SoloStar) 100 unit/mL (3 mL) injection pen Inject 15 Units under the skin at bedtime. 5 active sodium chloride 0.9 % bolus 500 mL 500 mL, intravenous, at 500 mL/hr, Administer over 1 Hours, Once, On Sat10/06/24 at 2145, For 1 dose 5 completed insulin regular (HumuLIN R) injection 14 Units 14 Units, subcutaneous, Once, On Sat10/05/24 at 2315, For 1 dose 5 completed potassium chloride (KLOR-CON M20) CR tablet 40 mEq 40 mEq, oral, Once, On Sat10/06/24 at 1600, For 1 dose, Tablet may be swallowed whole (do not crush/chew/suck on) OR broken in half and each half swallowed separately OR dissolved (whole tablet) in ~4 ounces of water (allow ~2 minutes to dissolve, stir well and administer immediately). 5 completed potassium chloride 10 mEq/100 mL IVPB 10 mEq 10 mEq, intravenous, at 100 mL/hr, Administer over 1 Hours, Every 1 hour, First dose on Sat10/06/24 at 0800, For 6 doses 5 aborted buPROPion (WELLBUTRIN) tablet 150 mg 150 mg, oral, Daily, First dose on Sat10/06/24 at 0900 5 active insulin glargine (LANTUS) injection 12 Units 12 Units, subcutaneous, Nightly, First dose (after last modification) on Sat10/05/24 at 2100, Notify provider: -If patient is currently or will become NPO -If TPN was or will be interrupted or discontinued -For approval to hold long acting insulin 5 active pregabalin (LYRICA) capsule 300 mg 300 mg, oral, 2 times daily, First dose on Sat10/05/24 at 2100 5 active insulin regular (HumuLIN R) injection 10 Units 10 Units, intravenous, Once, On Sat10/05/24 at 1915, For 1 dose, ONLY use an IV INSULIN SYRINGE with graduations in UNITS to draw up and administer each dose. 5 025 completed insulin regular (HumuLIN R) injection 5 Units 5 Units, intravenous, Once, On Sat10/05/24 at 1346, For 1 dose, ONLY use an IV INSULIN SYRINGE with graduations in UNITS to draw up and administer each dose. 5 025 completed pantoprazole (PROTONIX) injection 80 mg 80 mg, intravenous, Administer over 2 Minutes, Once, On Sat10/05/24 at 1344, For 1 dose, Pantroprazole - IV push: Reconstitute powder for injection with 10 mL NS; final concentration: 4 mg/mL., Indication for IV Push Pantoprazole? EGD evidence of PUD with stigmata or Upper G.I. Bleed 5 025 completed sodium chloride 0.9 % infusion 20 mL/hr, intravenous, As needed, to keep vein open per institutional policy, Starting on Sat09/28/24 at 1345, For 1 day 5 025 completed insulin lispro (HumaLOG KwikPen) 100 unit/mL injection pen Inject 13-15 Units under the skin 3 (three) times a day before meals. 5 active insulin lispro (HumaLOG KwikPen) 100 unit/mL injection pen Inject 13-15 Units under the skin 3 (three) times a day before meals. 5 active ferrous sulfate (iron) 325 mg (65 mg elemental iron) tablet Take 1 tablet (325 mg total) by mouth every other day. Iron Combinations (IRON COMPLEX PO): Take 1 capsule by mouth daily. - Oral 5 active insulin aspart (NovoLOG Flexpen U-100 Insulin) 100 unit/mL (3 mL) injection pen Inject 13-15 Units under the skin 3 (three) times a day with meals. 5 active insulin aspart (NovoLOG Flexpen U-100 Insulin) 100 unit/mL (3 mL) injection pen Inject 13-15 Units under the skin 3 (three) times a day with meals. 5 active pregabalin (LYRICA) 150 mg [...] 10 Units 10 Units, subcutaneous, Once, On 08/08/24 at 2215, For 1 dose 5 completed insulin glargine (LANTUS) injection 15 Units 15 Units, subcutaneous, Nightly, First dose (after last modification) on 08/08/24 at 2100, Notify provider: -If patient is currently or will become NPO -If TPN was or will be interrupted or discontinued -For approval to hold long acting insulin active insulin lispro injection 7 Units 7 Units, subcutaneous, 3 times daily with meals, First dose (after last modification) on 08/08/24 at 1700, Mealtime Insulin - Administer with meal -Do NOT give if patient NPO or expected to eat LESS than 50 5 active ferric gluconate (FERRLECIT) 125 mg in sodium chloride 0.9 % 110 mL IVPB 125 mg, intravenous, at 110 mL/hr, Administer over 60 Minutes, Daily, First dose on Sat08/05/24 at 0900, For 3 doses 5 completed carvediloL (COREG) tablet 12.5 mg 12.5 [...] times daily with meals, First dose on 06/27/24 at 0800, Mealtime Insulin - Administer with [...] with blood product transfusion only, Starting on Sat06/27/24 at 0906, -Use only the amount required from a 250 mL bag of NS to adequately flush -A new NS bag is required with each new unit 5 active FreeStyle Guanako 3 Sensor device 1 EA by Other route every 14 (fourteen) days. Box = Kit = EA 5 active FreeStyle Guanako 3 Sensor device 1 EA by Other route every 14 (fourteen) days. Box = Kit = EA 5 active Eliquis 5 mg tablet TAKE [...] 10 mL 10 mL, intravenous, Once, On 05/17/24 at 1509, For 1 dose 5 025 completed sodium chloride 0.9 % intravenous solution 50 mL 50 mL, intravenous, Once in imaging, Starting on Sat05/17/24 at 1508, For 1 dose 5 025 completed sodium chloride 0.9 % flush 10 mL [Order 1 Start] Name: Maintain IV access Signed Summary: Until discontinued, Starting on 05/17/24 at 1999, Until Specified [Order 1 End] [Order 2 Start] Name: Saline lock IV Signed Summary: Routine, Once, On 05/17/24 at 1999, For 1 occurrence [Order 2 [...] For 1 doseDo not crush or chew tablet. To make a liquid dissolution from a tablet: 1) Place the whole tablet(s) in approximately cup of water (4 fluid ounces). 2) Allow approximately 2 minutes for the tablet(s) to disintegrate. 3) Stir for about gan 4 completed furosemide (LASIX) injection 40 mg 40 mg, Intravenous, 2 times daily, First dose on Sat12/09/23 at 0900 4 aborted iopamidol (ISOVUE-370) 76 % injection 80 mL 80 mL, Intravenous, IMG once as needed, contrast, Starting on 12/08/23 at 2130, For 1 dose, Radiology ContrastLot #: [id number] Date: 07/07/2026 completed insulin glargine (LANTUS) injection [...] every 6 (six) hours as needed. 4 active sodium chloride 0.9% bolus (NS) 1,000 mL 1,000 mL, Intravenous, at 1,000 mL/hr, Once, On Serena 12/19/23 at 1030, For 1 dose 4 completed morphine sulfate injection 4 mg 4 mg, Intravenous, Every 30 min PRN, severe pain (7-10), Starting on Sat12/04/23 at 0007, For 3 doses 4 aborted atenolol (TENORMIN) tablet 50 mg 50 [...] push over 3 to 5 minutes. 4 completed ceFAZolin (ANCEF) injection 1,000 mg 1,000 mg, Intravenous, Once, On Sat11/15/23 at 0600, For 1 dosePort pocket For Adults, if ordered IV then reconstitute each 1GM vial with 10mL sterile water or normal saline and administer IV Push over 3-5 minutes. 4 completed fentaNYL (SUBLIMAZE) injection As needed, Starting [...] 750 mg tablet,extended release 24 hr 4 07/03/2 024 completed lidocaine 4 % topical patch Place [...] every night at bedtime. 4 024 active folic acid (FOLVITE) tablet 1 mg Take 1 tablet (1 mg total) by mouth daily. 4 024 active carvedilol (COREG) 6.25 MG tablet Take 1 tablet (6.25 mg total) by mouth 2 (two) times a day with meals. 4 active pregabalin (LYRICA) capsule 150 mg TAKE 1 CAPSULE BY MOUTH TWICE A DAY 4 024 active thiamine HCl (vitamin B1) 100 mg tablet Take 1 tablet (100 mg total) by mouth daily. 4 024 completed pregabalin (LYRICA) capsule 150 mg TAKE 1 CAPSULE BY MOUTH TWICE A DAY 4 024 active carvedilol (COREG) 6.25 MG tablet Take [...] 20 mEq 20 mEq, Oral, Once, On 5/5/24 at 1330, For 1 doseDo not crush or chew tablet. To make a liquid dissolution from a tablet: 1) Place the whole tablet(s) in approximately cup of water (4 fluid ounces). 2) Allow approximately 2 minutes for the tablet(s) to disintegrate. 3) Stir for about oswaldo 4 completed cefTRIAXone (ROCEPHIN) injection 1,000 mg 1,000 mg, Intravenous, Every 24 hours, First dose on Sat12/09/23 at 2200If ordered IV then reconstitute with 10 mL sterile water or normal saline and administer IV push over 3 to 5 minutes. 4 aborted amitriptyline (ELAVIL) tablet 50 mg 50 mg, Oral, Every Night at Bedtime, First dose on Sat12/04/23 at 2200 4 active folic acid (FOLVITE) tablet 1 mg Take 1 tablet (1 mg total) by mouth daily. 4 active pregabalin (LYRICA) capsule 150 mg 150 mg, Oral, 2 times daily, First dose (after last modification) on Sat08/27/23 at 0900 4 active acetaminophen (TYLENOL) tablet 650 mg 650 [...] g, Intravenous, at 50 mL/hr, Once, On Serena 12/19/23 at 1200, For 1 dose 4 completed buPROPion (WELLBUTRIN XL) 24 hr tablet [...] (200 mg total) by mouth daily. 4 active carvedilol (COREG) 3.125 MG tablet Take 1 tablet (3.125 mg total) by mouth 2 (two) times a day with meals. 4 active PANTOprazole (PROTONIX) 40 MG EC tablet Take 1 tablet (40 mg total) by mouth 2 times a day. 4 active insulin detemir (LevEMIR FLEXPEN) 100 UNIT/ML [...] Application (inhalation) every 4 hours for 4 [id number] aerosol inhalerevery 4 [id number] myg16qcb/actuation 4 active Pulmicort Flexhaler 90 MCG/ACT inhaler [...] by mouth daily. 3 024 aborted allopurinoLTake (oral)[id number] frequency recordedoralNo set duration recordedNo set duration amount [id number] 3 active amitriptyline (ELAVIL) 50 mg tablet [...] total) by mouth daily. 3 active minocyclineTake (oral)[id number] frequency recordedoralNo set duration recordedNo set duration amount [id number] 3 active amitriptyline (ELAVIL) 50 MG tablet Take 1 tablet (50 mg total) by mouth nightly. 3 active amitriptylineTake (oral)[id number] frequency recordedoralNo set duration recordedNo set duration amount [id number] 3 active colchicine 0.6 MG tablet 3 active buPROPion (WELLBUTRIN SR) 150 MG 12 hr tablet TAKE 1 TABLET BY MOUTH EVERY DAY 3 active EliquisTake (oral)[id number] frequency recordedoralNo set duration recordedNo set duration amount [id number] 3 active amitriptyline (ELAVIL) tablet 50 mg [...] Insulin Pen Needle (Global Ease Inject Pen [place]) 31G X 5 MM MISC 4 Pen [...] hypoglycemic reaction). 2 active Continuous Blood Gluc Professional Architect (FreeStyle Guanako 2 [place]) TARIK 1 applicator by Does not apply route 4 (four) times a day. 2 active Continuous Blood Gluc Professional Architect (FreeStyle Guanako 2 [place]) TARIK 1 applicator by Does not apply [...] THE SKIN 4 (FOUR) TIMES A DAY. 025 active oxycodone 5 mg tablet TAKE 1 TABLET (5 MG TOTAL) BY MOUTH EVERY 6 HOURS NEEDED FOR SEVERE PAIN MAX DAILY AMOUNT: 20 MG 025 completed pregabalin 200 mg capsule TAKE 1 CAPSULE (200 MG TOTAL) BY MOUTH 2 (TWO) TIMES A DAY. MAX DAILY AMOUNT: 400 MG 025 completed spironolactone 25 mg tablet TAKE 1 TABLET (25 MG TOTAL) BY MOUTH DAILY. 025 completed valsartan 160 mg tablet TAKE 1 TABLET BY MOUTH EVERY DAY 025 completed valsartan 320 mg tablet TAKE ONE TABLET (320 MG TOTAL) BY MOUTH ONCE DAILY 025 completed valsartan 40 mg tablet TAKE ONE TABLET BY MOUTH DAILY 025 completed varenicline tartrate 1 mg tablet TAKE 1 TABLET BY MOUTH TWICE A DAY 025 completed oxyCODONE (ROXICODONE) 5 mg immediate [...] (six) hours as needed. - Oral active valsartan (DIOVAN) 40 mg tablet Take by mouth 1 (one) time each day. Pt unsure of dosage active valsartan (DIOVAN) 40 mg tablet Take by mouth 1 (one) time each day. Pt unsure of dosage active Allergies Allergen Reaction Severity Comment Documented Date Source Status OTHER OTHEROTHER (SEE COMMENTS) Other Reaction(s): Other (See Comments) 07/19/2020 [facility] active RIVAROXABAN RASHOTHERRASH/D ERMATITIS Other reaction(s): Not available 09/20/2016 [facility] active BEE STING ANAPHYLAXIS 02/27/2016 [facility] activ e BEE VENOM ANAPHYLAXIS 02/27/2016 [facility] active BEE VENOM PROTEIN (HONEY BEE) ANAPHYLAXIS 02/27/2016 [facility] active VENOM-HONEY BEE E[facility]_PHCCT .NO KNOWN DRUG ALLERGIES ENS_PODCRCT XARELTO ENS_AONECT Problems Problem Status Onset Date Problem Type Date of Resolution Source Obstructive sleep apnea active 2020-04-22 9 ProblemAct [facility] Hyperglycemia active 4 ProblemAct [facility] Lumbar radiculopathy active 2015-02-21 0 ProblemAct [facility] Umbilical hernia active 2023-05-23 2 ProblemAct [facility] Pseudoarthrosis of lumbar spine active 2019-12-22 7 ProblemAct [facility] Chronic low back pain active 7 ProblemAct [facility] Heme positive stool active 1 ProblemAct [facility] 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 9 ProblemAct [facility] Swelling of left little finger active 2018-06-22 0 ProblemAct [facility] Gastro-esophageal reflux disease with esophagitis active 2024-07-23 0 ProblemAct [facility] Closed fracture of distal lateral malleolus of ankle, left, with routine healing, subsequent encounter active 2024-06-20 9 ProblemAct [facility] Stage 3 chronic kidney disease (CMS/HCC V24, CMS/HCC V28) active 2020-06-22 0 ProblemAct [facility] Acute blood loss anemia active 5 ProblemAct [facility] Decompensation of cirrhosis of liver ([facility] V24, [facility] V28) active 2024-07-23 0 ProblemAct [facility] CHF exacerbation ([facility] V24, [facility] V28) active 2024-10-20 3 ProblemAct [facility] Anemia, unspecified type active 2024-07-21 8 ProblemAct [facility] Neck pain active 2015-09-21 4 ProblemAct [facility] Sleep-related movement disorder active 8 ProblemAct [facility] SOB (shortness of breath) active 2024-04-23 6 ProblemAct [facility] Hyponatremia active 5 ProblemAct [facility] Dehydration active 5 ProblemAct [facility] Other spondylosis with radiculopathy, lumbar region active 2016-07-22 4 ProblemAct [facility] Lumbar foraminal stenosis active 2015-03-22 1 ProblemAct [facility] Weakness active 2016-04-22 3 ProblemAct [facility] Upper airway resistance syndrome active 8 ProblemAct [facility] GI bleed active 1 ProblemAct [facility] Numbness and tingling of right upper extremity active 2015-09-22 1 ProblemAct [facility] Myalgia active 2015-09-21 8 ProblemAct [facility] Mixed hyperlipidemia active 8 ProblemAct [facility] Alcoholic cirrhosis of liver without ascites ([facility] V24, [facility] V28) active EncounterDiagnosisAct [facility]J MH Gout active 4 ProblemAct [facility] Type 2 diabetes mellitus, with long-term current use of insulin ([facility] V24, [facility] V28) active 4 ProblemAct [facility] Difficulty walking due to ankle and foot joint active 2024-06-20 9 ProblemAct [facility] Pancytopenia ([facility] V24, [facility] V28) active 2024-08-20 9 ProblemAct [facility] Right hand weakness active 2015-09-22 1 ProblemAct [facility] Supratherapeutic INR active 2016-04-22 3 ProblemAct [facility] DVT (deep venous thrombosis) ([facility] V24, [facility] V28) active 8 ProblemAct [facility] Shoulder impingement active 2015-09-21 4 ProblemAct [facility] Closed fracture of right ankle active 2024-04-23 6 ProblemAct [facility] Rectus diastasis active 2023-05-23 2 ProblemAct [facility] 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 6 ProblemAct [facility] Synovial cyst of lumbar spine active 2020-06-21 3 ProblemAct [facility] Cervical radiculitis active 2015-09-21 4 ProblemAct [facility] Hypercalcemia active 2021-08-20 8 ProblemAct [facility] Cellulitis active 4 ProblemAct [facility] Insufficient sleep syndrome active 2020-07-22 1 ProblemAct [facility] Hypertensive disorder active 7 ProblemAct [facility] Renal stone active 2020-06-22 0 ProblemAct [facility] Dyspnea active 2024-10-20 3 ProblemAct [facility] Degeneration of lumbar or lumbosacral intervertebral disc active 2016-02-22 2 ProblemAct [facility] Chronic bilateral low back pain with sciatica active 2016-02-22 9 ProblemAct [facility] Iron deficiency anemia active 2020-06-22 0 ProblemAct [facility] Acute deep vein thrombosis (DVT) of femoral vein of left lower extremity ([facility] V24, [facility] V28) active 7 ProblemAct [facility] Snoring active 8 ProblemAct [facility] Acute kidney injury ([facility] V24) active 2016-04-22 3 ProblemAct [facility] MGUS (monoclonal gammopathy of unknown significance) active 2024-09-20 6 ProblemAct [facility] Hyperosmolar hyperglycemic state (HHS) ([facility] V24, [facility] V28) active 3 ProblemAct [facility] Wishes to postpone menstruation active 2021-07-22 0 ProblemAct ENS_PODCRCT Pressure ulcer of other site, stage 2 active 2021-06-20 5 ProblemAct ENS_PODCRCT Radiculopathy, lumbosacral region active 2022-04-23 6 ProblemAct ENS_PODCRCT Type 2 diabetes mellitus with diabetic polyneuropathy active 6 EncounterDiagnosisAct ENS_PODCRCT Contusion of toe active 2022-12-22 0 ProblemAct ENS_PODCRCT Neuropathy active 6 ProblemAct ENS_PODCRCT Type 2 diabetes mellitus with other diabetic neurological complication active 2021-07-21 4 ProblemAct ENS_PODCRCT Activity, walking, marching and hiking active 2022-12-22 0 ProblemAct ENS_PODCRCT Pressure ulcer of other site, stage 3 active 6 ProblemAct ENS_PODCRCT Anemia, unspecified type active EncounterDiagnosisAct CT_THN EMG Abnormal LFTs active EncounterDiagnosisAct CT_THNEMG S/P lumbar fusion active 2015-02-21 0 ProblemAct [facility] History of pulmonary embolism active 2016-04-22 3 ProblemAct [facility] Monitoring for long-term anticoagulant use active 2022-07-21 4 ProblemAct [facility] Type 2 diabetes mellitus, with long-term current use of insulin active 6 ProblemAct [facility] Chronic bilateral low back pain with sciatica active 2016-02-22 9 ProblemAct [facility] Status post lumbar surgery active 2020-09-21 1 ProblemAct [facility] Alcoholic cirrhosis of liver with ascites ([facility] V24, [facility] V28) active EncounterDiagnosisAct CT_THN EMG Personal history of DVT (deep vein thrombosis) active 2022-07-21 4 ProblemAct CTTHSFRAN Type 2 diabetes mellitus with hypoglycemia without coma, with long-term current use of insulin ([facility]) active EncounterDiagnosisAct CTTHS ESME Metabolic syndrome active EncounterDiagnosisAct CT_THNEMG Degenerative lumbar disc active 2015-03-22 1 ProblemAct CTTHSFRAN Alcohol abuse with physiological dependence ([facility] V24, [facility] V28) active EncounterDiagnosisAct C T_THNEMG Gout active ProblemAct CTTHSFRAN Chronic kidney disease, unspecified active EncounterDiagnosisAct CTTHNEMG Cellulitis active 2023-11-21 4 ProblemAct [facility]THSFRAN Acute CHF (congestive heart failure) active 2023-11-21 8 ProblemAct [facility] Cellulitis active 4 ProblemAct [facility] Acute deep vein thrombosis (DVT) of femoral vein of left lower extremity ([facility] V24, [facility] V28) active 7 ProblemAct [facility] Upper airway resistance syndrome active 8 ProblemAct [facility] Closed fracture of distal lateral malleolus of ankle, left, with routine healing, subsequent encounter active 2024-06-20 9 ProblemAct [facility] Stage 3 chronic kidney disease ([facility] V24, [facility] V28) active 2020-06-22 0 ProblemAct [facility] Supratherapeutic INR active 2016-04-22 3 ProblemAct [facility] Acute CHF (congestive heart failure) ([facility] V24, [facility] V28) active 4 ProblemAct [facility] Sleep-related movement disorder active 8 ProblemAct [facility] Acute kidney injury ([facility] V24) active 2016-04-22 3 ProblemAct [facility] Closed fracture of right ankle active 2024-04-23 6 ProblemAct [facility] Anemia requiring transfusions active 2024-08-20 9 ProblemAct [facility] Insufficient sleep syndrome active 2020-07-22 1 ProblemAct [facility] Other spondylosis with radiculopathy, lumbar region active 2016-07-22 4 ProblemAct [facility] Mixed hyperlipidemia active 8 ProblemAct [facility] 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 9 ProblemAct [facility] Decompensation of cirrhosis of liver ([facility] V24, [facility] V28) active 2024-07-23 0 ProblemAct [facility] Synovial cyst of lumbar spine active 2020-06-21 3 ProblemAct [facility] Hyperosmolar hyperglycemic state (HHS) ([facility] V24, [facility] V28) active 3 ProblemAct [facility] DVT (deep venous thrombosis) ([facility] V24, [facility] V28) active 8 ProblemAct [facility]J Pseudoarthrosis of lumbar spine active 2019-12-22 7 ProblemAct [facility]J Chronic bilateral low back pain with sciatica active 2016-02-22 9 ProblemAct [facility] Right hand weakness active 2015-09-22 1 ProblemAct [facility] Acute blood loss anemia active 5 ProblemAct [facility] Heme positive stool active 1 ProblemAct [facility] Neck pain active 2015-09-21 4 ProblemAct [facility] Renal stone active 2020-06-22 0 ProblemAct [facility] Swelling of left little finger active 2018-06-22 0 ProblemAct [facility] Iron deficiency anemia active 2020-06-22 0 ProblemAct [facility] Dehydration active 5 ProblemAct [facility]J Lumbar foraminal stenosis active 2015-03-22 1 ProblemAct [facility] Weakness active 2016-04-22 3 ProblemAct [facility] Obstructive sleep apnea active 2020-04-22 9 ProblemAct [facility] Rectus diastasis active 2023-05-23 2 ProblemAct [facility] Degeneration of lumbar or lumbosacral intervertebral disc active 2016-02-22 2 ProblemAct [facility] Hypercalcemia active 2021-08-20 8 ProblemAct [facility] GI bleed active 1 ProblemAct [facility] Difficulty walking due to ankle and foot joint active 2024-06-20 9 ProblemAct [facility] Gastro-esophageal reflux disease with esophagitis active 2024-07-23 0 ProblemAct [facility] Hypertensive disorder active 7 ProblemAct [facility] Shoulder impingement active 2015-09-21 4 ProblemAct [facility] Myalgia active 2015-09-21 8 ProblemAct [facility] Gout active 4 ProblemAct [facility] Hyperglycemia active 4 ProblemAct [facility] Chronic low back pain active 7 ProblemAct [facility] Umbilical hernia active 2023-05-23 2 ProblemAct [facility] Numbness and tingling of right upper extremity active 2015-09-22 1 ProblemAct [facility] 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 6 ProblemAct [facility] Type 2 diabetes mellitus, with long-term current use of insulin ([facility] V24, [facility] V28) active 4 ProblemAct [facility] SOB (shortness of breath) active 2024-04-23 6 ProblemAct [facility] Cervical radiculitis active 2015-09-21 4 ProblemAct [facility] Snoring active 8 ProblemAct [facility] Lumbar radiculopathy active 2015-02-21 0 ProblemAct [facility] Snoring active 8 ProblemAct [facility] Closed fracture of right ankle active 2024-04-23 6 ProblemAct [facility] Lumbar foraminal stenosis active 2015-03-22 1 ProblemAct [facility] Anemia requiring transfusions active 2024-08-20 9 ProblemAct [facility] 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 9 ProblemAct [facility] Synovial cyst of lumbar spine active 2020-06-21 3 ProblemAct [facility] Chronic low back pain active 7 ProblemAct [facility] Obstructive sleep apnea active 2020-04-22 9 ProblemAct [facility] Chronic bilateral low back pain with sciatica active 2016-02-22 9 ProblemAct [facility] Umbilical hernia active 2023-05-23 2 ProblemAct [facility] DVT (deep venous thrombosis) ([facility] V24, [facility] V28) active 8 ProblemAct [facility] Supratherapeutic INR active 2016-04-22 3 ProblemAct [facility] Closed fracture of distal lateral malleolus of ankle, left, with routine healing, subsequent encounter active 2024-06-20 9 ProblemAct [facility] Difficulty walking due to ankle and foot joint active 2024-06-20 9 ProblemAct [facility] Hypertensive disorder active 7 ProblemAct [facility] Insufficient sleep syndrome active 2020-07-22 1 ProblemAct [facility] Hyperglycemia active 4 ProblemAct [facility] Sleep-related movement disorder active 8 ProblemAct [facility] Swelling of left little finger active 2018-06-22 0 ProblemAct [facility] Gastro-esophageal reflux disease with esophagitis active 2024-07-23 0 ProblemAct [facility] Rectus diastasis active 2023-05-23 2 ProblemAct [facility] Hyperosmolar hyperglycemic state (HHS) ([facility] V24, [facility] V28) active 3 ProblemAct [facility] Right hand weakness active 2015-09-22 1 ProblemAct [facility] Shoulder impingement active 2015-09-21 4 ProblemAct [facility] Neck pain active 2015-09-21 4 ProblemAct [facility] Stage 3 chronic kidney disease ([facility] V24, [facility] V28) active 2020-06-22 0 ProblemAct [facility] Iron deficiency anemia active 2020-06-22 0 ProblemAct [facility] GI bleed active 1 ProblemAct [facility] Pseudoarthrosis of lumbar spine active 2019-12-22 7 ProblemAct [facility] Type 2 diabetes mellitus, with long-term current use of insulin ([facility] V24, [facility] V28) active 4 ProblemAct [facility] Acute deep vein thrombosis (DVT) of femoral vein of left lower extremity ([facility] V24, [facility] V28) active 7 ProblemAct [facility] Weakness active 2016-04-22 3 ProblemAct [facility] Decompensation of cirrhosis of liver ([facility] V24, [facility] V28) active 2024-07-23 0 ProblemAct [facility] Heme positive stool active 1 ProblemAct [facility] Acute kidney injury ([facility] V24) active 2016-04-22 3 ProblemAct [facility] Acute blood loss anemia active 5 ProblemAct [facility] SOB (shortness of breath) active 2024-04-23 6 ProblemAct [facility] Cervical radiculitis active 2015-09-21 4 ProblemAct [facility] Mixed hyperlipidemia active 8 ProblemAct [facility] Acute CHF (congestive heart failure) (CMS/HCC V24, CMS/HCC V28) active 4 ProblemAct [facility] Hypercalcemia active 2021-08-20 8 ProblemAct [facility] Lumbar radiculopathy active 2015-02-21 0 ProblemAct [facility] Myalgia active 2015-09-21 8 ProblemAct [facility] Other spondylosis with radiculopathy, lumbar region active 2016-07-22 4 ProblemAct [facility] Gout active 4 ProblemAct [facility] Cellulitis active 4 ProblemAct [facility] Dehydration active 5 ProblemAct [facility] Degeneration of lumbar or lumbosacral intervertebral disc active 2016-02-22 2 ProblemAct [facility] 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 6 ProblemAct [facility] Numbness and tingling of right upper extremity active 2015-09-22 1 ProblemAct [facility] Renal stone active 2020-06-22 0 ProblemAct [facility] Upper airway resistance syndrome active 8 ProblemAct [facility] International normalized ratio above reference range active [...] deficiency anemia active 2020-06-22 0 ProblemAct [facility] Mixed hyperlipidemia active 8 [...] Neck pain active 2015-09-21 4 ProblemAct [facility] Synovial cyst of lumbar spine [...] ProblemAct [facility]YS[facility] Hypertension active ProblemAct CT_PHY SONE DDD (degenerative disc disease), lumbosacral active 2016-02-22 2 ProblemAct [facility] GI bleed active 6 ProblemAct [facility] Symptomatic anemia active 5 ProblemAct [facility] Gout active 6 ProblemAct [facility] Immunizations Vaccine Date Source Lot Number Status Pneumococcal conjugate 20 va lent (Prevnar 20, PCV 20) 2mo and older 10/21/2023 [id number] comple aide Pneumococcal conjugate 20 va lent (Prevnar 20, PCV 20) 2mo and older 10/21/2023 [id number] comple adie Pneumococcal conjugate 20 va lent (Prevnar 20, PCV 20) 2mo and older 10/21/2023 [id number] comple aide Pneumococcal conjugate 20 va lent (Prevnar 20, PCV 20) 2mo and older 10/21/2023 [id number] comple aide Pneumococcal conjugate 20 va lent (Prevnar 20, PCV 20) 2mo and older [id number] Pneumococcal conjugate 20 va lent (Prevnar 20, PCV 20) 2mo and older 10/21/2023 [facility] [id number] comple aide Pneumococcal conjugate 20 va lent (Prevnar 20, PCV 20) 2mo and older 10/21/2023 [facility] [id number] comple aide Tdap Tetanus diptheria acell ular pertussis (Boostrix; Adacel) 7yo and older 10/21/2023 [facility] [id number] completed Tdap Tetanus diptheria acell ular pertussis (Boostrix; Adacel) 7yo and older 10/21/2023 [facility] [id number] completed Tdap Tetanus diptheria acell ular pertussis (Boostrix; Adacel) 7yo and older 10/21/2023 [facility] [id number] completed Tdap Tetanus diptheria acell ular pertussis (Boostrix; Adacel) 7yo and older 10/21/2023 [facility] [id number] completed Tdap Tetanus diptheria acell ular pertussis (Boostrix; Adacel) 7yo and older 10/21/2023 [facility] [id number] completed Tdap Tetanus diptheria acell ular pertussis (Boostrix; Adacel) 7yo and older 10/21/2023 [facility] [id number] completed Tdap Tetanus diptheria acell ular pertussis (Boostrix; Adacel) 7yo and older 10/21/2023 [facility] [id number] completed Tdap Tetanus diptheria acell ular pertussis (Boostrix; Adacel) 7yo and older 10/21/2023 [facility] [id number] completed Influenza Quadrivalent, 0.5m l, preservative free (Fluarix; FluLaval; Fluzone) ages 6mo and older (Afluria) 3yo and older 02/12/2023 [facility] [id number] completed Influenza Quadrivalent, 0.5m l, preservative free (Fluarix; FluLaval; Fluzone) ages 6mo and older (Afluria) 3yo and older 02/12/2023 [facility] [id number] completed Influenza Quadrivalent, 0.5m l, preservative free (Fluarix; FluLaval; Fluzone) ages 6mo and older (Afluria) 3yo and older 02/12/2023 [facility] [id number] completed Influenza Quadrivalent, 0.5m l, preservative free (Fluarix; FluLaval; Fluzone) ages 6mo and older (Afluria) 3yo and older 02/12/2023 [facility] [id number] completed Influenza Quadrivalent, 0.5m l, preservative free (Fluarix; FluLaval; Fluzone) ages 6mo and older (Afluria) 3yo and older 02/12/2023 [facility] [id number] completed Influenza Quadrivalent, 0.5m l, preservative free (Fluarix; FluLaval; Fluzone) ages 6mo and older (Afluria) 3yo and older 02/12/2023 [facility] [id number] completed Influenza Quadrivalent, 0.5m l, preservative free (Fluarix; FluLaval; Fluzone) ages 6mo and older (Afluria) 3yo and older 02/12/2023 [facility] [id number] completed Influenza Quadrivalent, 0.5m l, preservative free (Fluarix; FluLaval; Fluzone) ages 6mo and older (Afluria) 3yo and older 02/12/2023 [facility] [id number] completed Pfizer (ages 12 & older) Biv alent, COVID-19 12/21/2022 [facility] completed Pfizer (ages 12 & older) Biv alent, COVID-12/21/2022 [facility] completed Pfizer (ages 12 & older) Biv alent, COVID-12/21/2022 [facility] completed Pfizer (ages 12 & older) Biv alent, COVID-12/21/2022 [facility] completed Pfizer (ages 12 & older) Biv alent, COVID-12/21/2022 CT_[facility] completed Pfizer (ages 12 & older) Biv alent, COVID-12/21/2022 [facility] completed Pfizer (ages 12 & older) Biv alent, COVID-19 [facility] Pfizer (ages 12 & older) Biv alent, COVID-19 12/21/2022 [facility] completed SARS-COV-2 (COVID-19) vaccin e, mRNA, spike protein, LNP, bivalent booster, preservative free, 30 mcg/0.3 mL dose, guillermina-sucrose formulation [id number] SARS-COV-2 (COVID-19) vaccin e, mRNA, spike protein, LNP, preservative free, 30 mcg/0.3mL dose 03/03/2022 [facility] [id number] completed Pfizer SARS-CoV-2 COVID-19, mRNA, LNP-S, preservative free 10/24/2021 [facility] [id number] completed Pfizer SARS-CoV-2 COVID-19, mRNA, LNP-S, preservative free 10/24/2021 [facility] [id number] completed Pfizer SARS-CoV-2 COVID-19, mRNA, LNP-S, preservative free 10/24/2021 [id number] completed Pfizer SARS-CoV-2 COVID-19, mRNA, LNP-S, preservative free 10/24/2021 [id number] completed Pfizer SARS-CoV-2 COVID-19, mRNA, LNP-S, preservative free 10/24/2021 [id number] completed Pfizer SARS-CoV-2 COVID-19, mRNA, LNP-S, preservative free 10/24/2021 [facility] [id number] completed Pfizer SARS-CoV-2 COVID-19, mRNA, LNP-S, preservative free 10/24/2021 [facility] completed SARS-COV-2 (COVID-19) vaccin e, mRNA, spike protein, LNP, preservative free, 30 mcg/0.3mL dose 04/05/2021 [facility] [id number] completed Influenza Quadrivalent, 0.5m l, preservative free (Fluarix; FluLaval; Fluzone) ages 6mo and older (Afluria) 3yo and older 01/13/2021 [facility] [id number] completed Influenza Quadrivalent, 0.5m l, preservative free (Fluarix; FluLaval; Fluzone) ages 6mo and older (Afluria) 3yo and older 01/13/2021 [facility] [id number] completed Influenza Quadrivalent, 0.5m l, preservative free (Fluarix; FluLaval; Fluzone) ages 6mo and older (Afluria) 3yo and older 01/13/2021 [facility] [id number] completed Influenza Quadrivalent, 0.5m l, preservative free (Fluarix; FluLaval; Fluzone) ages 6mo and older (Afluria) 3yo and older 01/13/2021 [facility] [id number] completed Influenza Quadrivalent, 0.5m l, preservative free (Fluarix; FluLaval; Fluzone) ages 6mo and older (Afluria) 3yo and older 01/13/2021 [facility] [id number] completed Influenza Quadrivalent, 0.5m l, preservative free (Fluarix; FluLaval; Fluzone) ages 6mo and older (Afluria) 3yo and older 01/13/2021 [facility] [id number] completed Influenza Quadrivalent, 0.5m l, preservative free (Fluarix; FluLaval; Fluzone) ages 6mo and older (Afluria) 3yo and older 01/13/2021 [facility] [id number] completed SARS-COV-2 (COVID-19) vaccin e, mRNA, spike protein, LNP, preservative free, 30 mcg/0.3mL dose 08/25/2020 [facility] [id number] completed SARS-COV-2 (COVID-19) vaccin e, mRNA, spike protein, LNP, preservative free, 30 mcg/0.3mL dose 08/03/2020 [facility] [id number] completed Zoster recombinant (Shingrix ) 19yo and older 03/02/2020 [facility] [id number] completed Zoster recombinant (Shingrix ) 19yo and older 03/02/2020 [facility] [id number] completed Zoster recombinant (Shingrix ) 19yo and older 03/02/2020 [facility] [id number] completed Zoster recombinant (Shingrix ) 19yo and older 03/02/2020 [facility] [id number] completed Zoster recombinant (Shingrix ) 19yo and older 03/02/2020 [facility] [id number] completed Zoster recombinant (Shingrix ) 19yo and older 03/02/2020 [facility] [id number] completed Zoster recombinant (Shingrix ) 19yo and older 03/02/2020 [facility] [id number] completed Influenza Quadrivalent, 0.5m l, preservative free (Fluarix; FluLaval; Fluzone) ages 6mo and older (Afluria) 3yo and older 01/25/2020 [facility] [id number] completed Influenza Quadrivalent, 0.5m l, preservative free (Fluarix; FluLaval; Fluzone) ages 6mo and older (Afluria) 3yo and older 01/25/2020 [facility] [id number] completed Influenza Quadrivalent, 0.5m l, preservative free (Fluarix; FluLaval; Fluzone) ages 6mo and older (Afluria) 3yo and older 01/25/2020 [facility] [id number] completed Influenza Quadrivalent, 0.5m l, preservative free (Fluarix; FluLaval; Fluzone) ages 6mo and older (Afluria) 3yo and older 01/25/2020 [id number] completed Influenza Quadrivalent, 0.5m l, preservative free (Fluarix; FluLaval; Fluzone) ages 6mo and older (Afluria) 3yo and older 01/25/2020 [facility] [id number] completed Influenza Quadrivalent, 0.5m l, preservative free (Fluarix; FluLaval; Fluzone) ages 6mo and older (Afluria) 3yo and older 01/25/2020 [facility] [id number] completed Influenza Quadrivalent, 0.5m l, preservative free (Fluarix; FluLaval; Fluzone) ages 6mo and older (Afluria) 3yo and older 01/25/2020 [facility] [id number] completed Zoster recombinant (Shingrix ) 19yo and older 12/22/2019 [facility] [id number] completed Zoster recombinant (Shingrix ) 19yo and older 12/22/2019 [facility] [id number] completed Zoster recombinant (Shingrix ) 19yo and older 12/22/2019 [facility] [id number] completed Zoster recombinant (Shingrix ) 19yo and older 12/22/2019 [facility] [id number] completed Zoster recombinant (Shingrix ) 19yo and older 12/22/2019 [facility] [id number] completed Zoster recombinant (Shingrix ) 19yo and older 12/22/2019 [facility] [id number] completed Zoster recombinant (Shingrix ) 19yo and older 12/22/2019 [facility] [id number] completed Influenza Quadrivalent, 0.5m l, preservative free (Fluarix; FluLaval; Fluzone) ages 6mo and older (Afluria) 3yo and older 02/25/2019 [facility] [id number] completed Influenza Quadrivalent, 0.5m l, preservative free (Fluarix; FluLaval; Fluzone) ages 6mo and older (Afluria) 3yo and older 02/25/2019 [facility] [id number] completed Influenza Quadrivalent, 0.5m l, preservative free (Fluarix; FluLaval; Fluzone) ages 6mo and older (Afluria) 3yo and older 02/25/2019 [facility] [id number] completed Influenza Quadrivalent, 0.5m l, preservative free (Fluarix; FluLaval; Fluzone) ages 6mo and older (Afluria) 3yo and older 02/25/2019 [facility] [id number] completed Influenza Quadrivalent, 0.5m l, preservative free (Fluarix; FluLaval; Fluzone) ages 6mo and older (Afluria) 3yo and older 02/25/2019 [facility] [id number] completed Influenza Quadrivalent, 0.5m l, preservative free (Fluarix; FluLaval; Fluzone) ages 6mo and older (Afluria) 3yo and older 02/25/2019 [facility] [id number] completed Influenza Quadrivalent, 0.5m l, preservative free (Fluarix; FluLaval; Fluzone) ages 6mo and older (Afluria) 3yo and older 02/25/2019 [facility] [id number] completed Influenza Quadrivalent, 0.5m l, preservative free (Fluarix; FluLaval; Fluzone) ages 6mo and older (Afluria) 3yo and older 02/25/2019 [facility] [id number] completed Pneumococcal conjugate 13 va lent (Prevnar 13, PCV13) 2mo and older 02/25/2019 [facility] [id number] complet ed Pneumococcal conjugate 13 va lent (Prevnar 13, PCV13) 2mo and older 02/25/2019 [facility] [id number] complet ed Pneumococcal conjugate 13 va lent (Prevnar 13, PCV13) 2mo and older 02/25/2019 [facility] [id number] complet ed Pneumococcal conjugate 13 va lent (Prevnar 13, PCV13) 2mo and older 02/25/2019 [facility] [id number] complet ed Pneumococcal conjugate 13 va lent (Prevnar 13, PCV13) 2mo and older 02/25/2019 [facility] [id number] complet ed Pneumococcal conjugate 13 va lent (Prevnar 13, PCV13) 2mo and older 02/25/2019 [facility] [id number] complet ed Pneumococcal conjugate 13 va lent (Prevnar 13, PCV13) 2mo and older 02/25/2019 [facility] [id number] complet ed Influenza Quadravalent, MDCK , 0.5ml, preservative free (Flucelvax) 6mo and older 02/13/2018 [facility] [id number] completed Influenza Quadravalent, MDCK , 0.5ml, preservative free (Flucelvax) 6mo and older 02/13/2018 [facility] [id number] completed Influenza Quadravalent, MDCK , 0.5ml, preservative free (Flucelvax) 6mo and older 02/13/2018 [facility] [id number] completed Influenza Quadravalent, MDCK , 0.5ml, preservative free (Flucelvax) 6mo and older 02/13/2018 [facility] [id number] completed Influenza Quadravalent, MDCK , 0.5ml, preservative free (Flucelvax) 6mo and older 02/13/2018 [facility] [id number] completed Influenza Quadravalent, MDCK , 0.5ml, preservative free (Flucelvax) 6mo and older 02/13/2018 [facility] [id number] completed Influenza Quadravalent, MDCK , 0.5ml, preservative free (Flucelvax) 6mo and older 02/13/2018 [facility] [id number] completed Influenza Quadrivalent, with preservative (Fluzone; Afluria) 6mo and older 01/17/2017 [facility] [id number] completed Influenza Quadrivalent, with preservative (Fluzone; Afluria) 6mo and older 01/17/2017 [place] [id number] completed Influenza Quadrivalent, with preservative (Fluzone; Afluria) 6mo and older 01/17/2017 [place] [id number] completed Influenza Quadrivalent, with preservative (Fluzone; Afluria) 6mo and older 01/17/2017 [place] [id number] completed Influenza Quadrivalent, with preservative (Fluzone; Afluria) 6mo and older 01/17/2017 [facility] [id number] completed Influenza Quadrivalent, with preservative (Fluzone; Afluria) 6mo and older 01/17/2017 [place] [id number] completed Influenza Quadrivalent, with preservative (Fluzone; Afluria) 6mo and older 01/17/2017 [facility] [id number] completed Encounters Encounter Type Encounter Reason Primary Diagnosis Location Date Ambulatory Diabetes Mellitus Diabetes Mellitus [facility] [place] 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) [facility] 5 Ambulatory 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) [facility] 5 Ambulatory Iron deficiency anemia, unspecified Iron deficiency anemia, unspecified [facility] 5 Ambulatory 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) [facility] 5 Ambulatory 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) [facility] 5 Ambulatory 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) [facility] 5 Inpatient low blood sugar Hypo-osmolality and hyponatremia [facility] [place] 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[place] [facility] [place] 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) [facility] 5 Ambulatory Type 2 diabetes mellitus with hyperglycemia ([facility]/HCC V24, [facility]/HCC V28) Type 2 diabetes mellitus with hyperglycemia (CMS/HCC V24, [facility] V28) [facility] [place] Follow-up Type 2 diabetes mellitus with hyperglycemia (CMS/HCC V24, CMS/HCC V28) [facility] [place] Diabetes Mellitus Type 2 diabete s mellitus with hyperglycemia (CMS/HCC V24, [facility] V28) [facility] [place] Acute posthemorrhagi c anemia Acute posthemorrhagic anemia [facility] 5 Ambulatory 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) [facility] 5 Emergency blood transfusion [facility] 5 Ambulatory IV Medication Iron deficiency anemia secondary to blood loss (chronic) [facility] 5 Ambulatory Acute posthemorrhagi c anemia Acute posthemorrhagic anemia [facility] 5 Ambulatory 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 [address] 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 5 Ambulatory [facility] 5 Ambulatory Displaced fracture o f lateral malleolus of left fibula, subsequent encounter for closed fracture with routine healing Displaced fracture of lateral malleolus of left fibula, subsequent encounter for closed fracture with routine healing [facility] 5 Ambulatory Acute posthemorrhagi c anemia Acute posthemorrhagic anemia [facility] 5 Ambulatory Follow-up Low back pain, unspecified 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) [facility] 5 Ambulatory Follow-up Other specified abnormal findings of blood chemistry [facility] 5 Ambulatory Displaced fracture o f lateral malleolus of left fibula, subsequent encounter for closed fracture with routine healing Displaced fracture of lateral malleolus of left fibula, subsequent encounter for closed fracture with routine healing [facility] 5 Ambulatory Acute posthemorrhagi c anemia Acute posthemorrhagic anemia [facility] 5 Ambulatory 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 5 Ambulatory Acute posthemorrhagi c anemia Acute posthemorrhagic anemia 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 5 Ambulatory Follow-up Iron deficiency anemia secondary to blood loss (chronic) [facility] 5 Ambulatory [facility] 5 Ambulatory [facility] 5 Ambulatory [facility] 5 Emergency low hemoglobin Chronic gout, unspecified, without tophus (tophi) 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 5 Ambulatory Displaced fracture o f lateral malleolus of left fibula, subsequent encounter for closed fracture with routine healing Displaced fracture of lateral malleolus of left fibula, subsequent encounter for closed fracture with routine healing [facility] 5 Ambulatory Displaced fracture o f lateral malleolus of left fibula, subsequent encounter for closed fracture with routine healing Displaced fracture of lateral malleolus of left fibula, subsequent encounter for closed fracture with routine healing [facility] 5 Ambulatory Chronic gout, unspecified, without tophus (tophi) Chronic gout, unspecified, without tophus (tophi) [facility] 5 Ambulatory Other fracture of right lower leg, subsequent encounter for closed fracture with routine healing Other fracture of right lower leg, subsequent encounter for closed fracture with routine healing [facility] 5 Ambulatory Other fracture of right lower leg, subsequent encounter for closed fracture with routine healing Other fracture of right lower leg, subsequent encounter for closed fracture with routine healing 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 5 Ambulatory IV Medication Iron deficiency anemia secondary to blood loss (chronic) [facility] 5 Ambulatory Other fracture of right lower leg, subsequent encounter for closed fracture with routine healing Other fracture of right lower leg, subsequent encounter for closed fracture with routine healing [facility] 5 Ambulatory Other fracture of right lower leg, subsequent encounter for closed fracture with routine healing Other fracture of right lower leg, subsequent encounter for closed fracture with routine healing 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 4 Ambulatory port draw Monoclonal gammopathy [facility] 4 Ambulatory other Iron deficiency anemia secondary to blood loss (chronic) [facility] 4 Ambulatory Follow-up Nicotine depende nce, unspecified, uncomplicated 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 4 Ambulatory Type 2 diabetes mellitus with hypoglycemia without coma Type 2 diabetes mellitus with hypoglycemia without coma [facility] 4 Ambulatory Type 2 diabetes mellitus with hypoglycemia without coma Type 2 diabetes mellitus with hypoglycemia without coma [facility] [address] 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) [facility] 4 Ambulatory Anemia, unspecified Anemia, unspecified [facility] 4 Ambulatory 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) [facility] 4 Ambulatory Anemia, unspecified Anemia, unspecified [facility] 4 Ambulatory 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) [facility] 4 Ambulatory Hypomagnesemia Hypomagnesemia [facility] 4 Ambulatory Chronic diastolic (congestive) heart failure Chronic diastolic (congestive) heart failure [facility] 4 Ambulatory 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) [facility] 4 Ambulatory 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) [facility] 4 Ambulatory Chronic diastolic (congestive) heart failure Chronic diastolic (congestive) heart failure [facility] Ambulatory Chronic diastolic (congestive) heart failure Chronic diastolic (congestive) heart failure [facility] 4 Ambulatory Unspecified fall, initial encounter Unspecified fall, initial encounter [facility] 4 Ambulatory 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) [facility] 4 Ambulatory [facility] 4 Inpatient Shortness of breath Shortness of breath [facility] 4 Inpatient Cellulitis, unspecified Cellulitis, unspecified [facility] 4 Emergency Other specified soft tissue disorders Other specified soft tissue disorders [facility] 4 Ambulatory 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) [facility] 4 Ambulatory 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) [facility] 4 Ambulatory 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) [facility] 4 Ambulatory Iron deficiency anemia, unspecified Iron deficiency anemia, unspecified [facility] 4 Ambulatory 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) [facility] 4 Ambulatory 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) [facility] 4 Ambulatory 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) [facility] 4 Ambulatory 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) [facility] 4 Ambulatory 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) [facility] 4 Ambulatory 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) [facility] 4 Ambulatory Anemia, unspecified Anemia, unspecified [facility] 4 Ambulatory Anemia, unspecified Anemia, unspecified [facility] 4 Ambulatory 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) [facility] 4 Ambulatory Mixed hyperlipidemia Mixed hyperlipidemia [facility] 4 Ambulatory Chronic kidney disease, unspecified Chronic kidney disease, unspecified [facility] 4 Ambulatory 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) [facility] 4 Ambulatory Anemia, unspecified Anemia, unspecified [facility] 4 Ambulatory [facility] 4 Ambulatory Unspecified abnormal finding in specimens from other organs, systems and tissues Unspecified abnormal finding in specimens from other organs, systems and tissues [facility] 4 Inpatient Anemia, unspecified Anemia, unspecified [facility] 4 Ambulatory Anemia, unspecified Anemia, unspecified [facility] 4 Ambulatory 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) [facility] 4 Ambulatory 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) [facility] 4 Ambulatory Follow-up Follow-up [facility] 4 Inpatient Anemia, unspecified Anemia, unspecified [facility] 4 Ambulatory Anemia, unspecified Anemia, unspecified [facility] 4 Ambulatory 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) [facility] 4 Ambulatory 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) [facility] 4 Ambulatory 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) [facility] 4 Ambulatory Unspecified abnormal finding in specimens from other organs, systems and tissues Unspecified abnormal finding in specimens from other organs, systems and tissues [facility] 4 Ambulatory Dehydration Dehydration [facility] 4 Inpatient Dizziness and giddiness Dizziness and giddiness [facility] 4 Ambulatory 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) [facility] 4 Ambulatory 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) [facility] 4 Ambulatory 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) [facility] 4 Ambulatory Anemia, unspecified Anemia, unspecified [facility] 4 Ambulatory Personal history of other venous thrombosis and embolism Personal history of other venous thrombosis and embolism [facility] 4 Ambulatory Type 2 diabetes mellitus without complications Type 2 diabetes mellitus without complications [facility] 4 Ambulatory [facility] 4 Inpatient Anemia, unspecified Anemia, unspecified [facility] 4 Emergency Shortness of breath Shortness of breath [facility] 4 Ambulatory [facility] 4 Ambulatory 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) [facility] 3 Ambulatory 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) [facility] 3 Ambulatory 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) [facility] 3 Ambulatory 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) [facility] 3 Ambulatory 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) [facility] 3 Ambulatory Type 2 diabetes mellitus without complications Type 2 diabetes mellitus without complications [facility] 3 Ambulatory 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) [facility] 3 Ambulatory [facility] 3 Ambulatory [facility] 3 Ambulatory 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) [facility] 3 Ambulatory 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) [facility] 3 Ambulatory [facility] 3 Inpatient Gastrointestinal hemorrhage, unspecified Gastrointestinal hemorrhage, unspecified [facility] 3 Emergency Anemia, unspecified [facility] 3 Ambulatory Personal history of other venous thrombosis and embolism [facility] 3 Ambulatory Personal history of other venous thrombosis and embolism [facility] 3 Care Team Organization Name Specialty Phone Email Start Date End [facility] 09/02/2024 [facility] 025 [facility] 025 [facility], 07/01/2024 11/27/2024 [facility] 05/11/2024 [facility] 04/25/2024 [facility] 04/11/2024 [facility] 04/10/2024 [facility] 03/11/2024 03/13/20 24 [facility] 02/25/2024 [facility] 02/25/2024 [facility] 02/24/2024 [facility] 02/24/2024 [facility] 05/12/2023 025 [facility] Primary [facility] 05/12/2023 07/08/2024 [facility] Rios Sousa Primary [facility] 04/27/2023 07/08/2024 [facility] 04/26/2023 10/19/2024 [facility] 04/26/2023 04/26/2023 [facility] 01[facility]04/2023 [facility] 12/26/2022 09/0 09/2022 [facility] 11/29/2022 11/30/19 [facility] 11/03/2024 [facility] 0 11/02/2022 11/02/2022 [facility] 10/27/2022 11/03/2024 [facility] Primary Care 023 10/25/2022 [facility] Primary Care 10/05/2022 12/09/2023 [facility] 09/22/2022 [facility] Primary Care 04/03/2022 12/09/2023 [facility] Primary [facility] 02/27/2022 12/09/2023 Critical access hospital 02/21/2022 [facility] Primary Care 08/24/2021 08/24/2021 [facility] Primary Care [facility]
--- OUTSIDE RECORDS SUMMARY | 2024-12-30 17:20 | XMS_ITS ---
Author Organization [facility] [address] [place] [address] Phone Care Team Providers Care Platform Operations Director Name Role Phone Rios Sousa MD Primary Care Provider [phone] Transitional Care Management Status:Ongoing (Active) Start date:11/02/2024 Enrollment date:11/28/2024 Enrollment reason:Identified using hospital discharge data Case Team Name Relationship Phone Sandra Kamara LPN Care Manager(Responsible Staf f) Continued Care and Services Coordination
== END 2024-12-30 14:29 | disposition home or self-care (01) ==
LOC: HO.HKAE 14:06
PROVIDERS: PCP Family Medicine; Visit Provider Internal Medicine Hypertension Specialist
DX: N18.9 Chronic kidney disease, unspecified (principal); D64.9 Anemia, unspecified
CPT/HCPCS: 99214